=== PATIENT | male | born 1940 | race Hispanic/Latino ===

== ENCOUNTER 2016-06-08 09:10 | Inpatient (IN) | payer MEDICARE, BC ==
--- NOTE | 2016-06-08 09:22 | ED PDOC ---
HPI: General Adult Time Seen by Provider: 06/08/16 09:16 Chief Complaint (Provider): weakness History Per: Patient History/Exam Limitations: no limitations Additional Complaint(s): 75yo male brought by ALS for complaint of generalized weakness and dizziness since waking up this morning. He reports minimal eye pain left. Patient denies chest pain, cough, nausea, vomit, diarrhea, shortness of breath, numbness, tingles. [place] fine last night. No headache. No blurry vision. Not taking any meds for a long time. Has a triple AAA that is being monitored, last checked Feb 2016 time. EMS reports they did not administer medications in the field. Last BP they noted was 189/102. PMD: Derik Sotelo NIHSS Stroke Scale - Date/Time Evaluation Performed Date Performed: 06/08/16 Time Performed: 09:31 When Was NIHSS Performed: Baseline - How Severe is the Stroke Level of Consciousness: 0=Alert LOC to Questions: 0=Both comments correct LOC to commands: 0=Obeys both correctly Best Gaze: 0=Normal Visual: 0=No visual loss Facial: 0=Normal Motor Arm - Left: 0=No drift Motor Arm - Right: 0=No drift Motor Leg - Left: 0=No drift Motor Leg - Right: 0=No drift Limb Ataxia: 0=Absent Sensory: 0=Normal Best Language: 0=No aphasia Dysarthia: 0=Normal articulation Extinction & Inattention (Neglect): 0=Normal, no object Score: 0 rTPA Inclusion/Exclusion - Refusal of Treatment Patient Refused Treatment: No - Inclusion Criteria for Altepase Patient is 18 years or Older: Yes The Clinical Diagnosis of Ischemic Stroke That is Causing a Potentially Disabling Neurological Deficit: No Time of Onset is Well Established to be Less Than 270 Minute Before Treatment Would Begin: No Risk/Benefit Discussed With Patient/Family Member Present: Yes - Warning to TPA With Conditions Following Conditions Weighed Against Anticipated Benefit: Yes Condition: Care Team Unable to Determine Eligibilty (outside of window) Past Medical History Reviewed: Historical Data, Nursing Documentation, Vital Signs Vital Signs: Last Vital Signs Temp 98.6 F 06/08/16 09:43 Pulse 75 06/08/16 09:43 Resp 16 06/08/16 09:43 BP 174/99 H 06/08/16 09:43 Pulse Ox 100 06/08/16 11:15 - Medical History PMH: Atrial Fibrillation, CAD, CHF, CVA (mild), Dementia, Diabetes (type II), Gastritis, HTN, Hypercholesterolemia, Chronic Kidney Disease (renal failure) - Surgical History Surgical History: CABG (10 years ago) - Family History Family History: States: CAD, Diabetes (father) - Living Arrangements Living Arrangements: Alone - Social History Drugs: Denies - Immunization History Hx Tetanus Toxoid Vaccination: No Hx Influenza Vaccination: Yes Hx Pneumococcal Vaccination: No - Home Medications Home Medications: Ambulatory Orders Medication Instructions Recorded Acetaminophen [Tylenol 325mg tab] 650 mg PO Q6 PRN #0 tab 12/26/14 LORazepam [Ativan] 1 mg PO Q6 PRN #0 tab 12/26/14 amLODIPine [Norvasc] 10 mg PO DAILY #0 tab 12/26/14 traZODone [Desyrel] 50 mg PO HS #0 tab 12/26/14 Clonidine Hydrochloride [Catapres] 0.1 mg PO Q6 12/27/14 Ascorbic Acid [Vitamin C 500 mg 500 mg PO DAILY #0 tab 01/02/15 Tab] Donepezil [Aricept] 5 mg PO HS #0 tab 01/02/15 Folic Acid 1 mg PO DAILY #0 tab 01/02/15 Multimineral/Multivitamin 1 tab PO DAILY #0 tab 01/02/15 [Therapeutic-M Tab] Thiamine [Vitamin B1 Tab] 100 mg PO DAILY #0 tab 01/02/15 Metoprolol Succinate [Toprol XL] 50 mg PO DAILY 05/05/15 Rivaroxaban [Xarelto] 20 mg PO DAILY 05/05/15 Lisinopril 10 mg PO DAILY #0 tablet 05/13/15 Pantoprazole Sodium [Protonix] 40 mg PO BID #0 ml 05/13/15 Sucralfate 1 gm PO BID #0 tablet 05/13/15 - Allergies Allergies/Adverse Reactions: Allergies Allergy/AdvReac Type Severity Reaction Status Date / Time No Known Allergies Allergy Verified 06/08/16 09:31 Review of Systems ROS Statement: Except As Marked, All Systems Reviewed And Found Negative Constitutional: Positive for: Weakness Eyes: Positive for: Pain. Negative for: Vision Change, Redness Cardiovascular: Negative for: Chest Pain Respiratory: Negative for: Shortness of Breath Gastrointestinal: Negative for: Nausea, Vomiting, Diarrhea Musculoskeletal: Negative for: Neck Pain, Shoulder Pain, Arm Pain Skin: Negative for: Rash Neurological: Positive for: Weakness, Dizziness. Negative for: Numbness, Headache Physical Exam - Reviewed Nursing Documentation Reviewed: Yes Vital Signs Reviewed: Yes - Physical Exam Appears: Positive for: Non-toxic, No Acute Distress Head Exam: Positive for: ATRAUMATIC, NORMAL INSPECTION, NORMOCEPHALIC Skin: Positive for: Warm, Dry Eye Exam: Positive for: EOMI, Other (Pupils are fully reactive but right pupil is 3+, left pupil is 2+. ). Negative for: Periorbital swelling, Periorbital tenderness, Conjunctival injection ENT: Positive for: Normal ENT Inspection. Negative for: Nasal Congestion, Pharyngeal Erythema Cardiovascular/Chest: Positive for: Regular Rate, Rhythm Respiratory: Positive for: Normal Breath Sounds. Negative for: Rales, Rhonchi, Wheezing Gastrointestinal/Abdominal: Positive for: Normal Exam, Soft. Negative for: Tenderness Back: Positive for: Normal Inspection. Negative for: L CVA Tenderness, R CVA Tenderness Extremity: Positive for: Normal ROM, Swelling (bilateral lower extremity swelling mild but no pitting edema). Negative for: Tenderness Neurologic/Psych: Positive for: Alert, wellness specialist II-XII (intact), Oriented. Negative for: Motor/Sensory Deficits - Laboratory Results Result Diagrams: 06/08/16 10:09 06/08/16 10:09 Interpretation Of Abn Labs: probnp borderline elevation - ECG ECG: Positive for: Interpreted By Me, Viewed By Nv ECG Rhythm: Positive for: Atrial Fibrillation (rate controlled) O2 Sat by Pulse Oximetry: 100 (RA) Pulse Ox Interpretation: Normal - Radiology X-Ray: Interpreted by Me, Viewed By Nv X-Ray Interpretation: Other (?vascular congestion mild) - CT Scan/US ct Other Rad Studies (CT/US): Read By Radiologist Other Rad Interpretation: no acute - Progress ED Course And Treament: 0916: EKG, CXR, CT Head w/o, Labs, IV fluids ordered. 0922: accuchek is 116. 1246: Stable. AAOx3. BP elevated, will give clonidine. Will give ASA, lasix for chf mild. Will need admit for further eval of symptoms. Spoke with Joaquin of [place]. Will admit tele. Pt. pain free currently. Disposition - Clinical Impression Clinical Impression: CHF (congestive heart failure), Dizziness of unknown cause, Weakness, HTN ( hypertension) - Patient ED Disposition Is Patient to be Admitted: Yes Counseled Patient/Family Regarding: Studies Performed, Diagnosis - Disposition Disposition Time: 12:51 Condition: FAIR Instructions: Weakness (ED) - Pt Status Changed To: Hospital Disposition Of: Observation - POA Present On Arrival: None Additional Comments - Additional Comments Additional Comments: Documented by Macho Ferrer acting as a scribe for Kal Iglesias MD. All medical record entries made by the Scribe were at my direction and personally dictated by me. I have reviewed the chart and agree that the record accurately reflects my personal performance of the history, physical exam, medical decision making, and the department course for this patient. I have also personally directed, reviewed, and agree with the discharge instructions and disposition.
[2016-06-08 09:35] VITALS: BMI 26.6
[2016-06-08] MEDS ORDERED: Sodium Chloride 0.9% 500 ML IV STA (09:36)
[2016-06-08 10:16] LABS: BASO # 0.1 K/uL (0.0-0.2); BASO % 1.2 % (0.0-2.0); EOS # 0.3 K/uL (0.0-0.7); HEMATOCRIT 33.7 % (35.0-51.0); LYMPH # 0.9 K/uL (1.0-4.3); LYMPH % 13.6 % (20.0-40.0); MEAN CELL VOLUME 95.2 fl (80.0-94.0); MEAN CORPUSCULAR HEMOGLOBIN 32.6 pg (27.0-31.0); MEAN CORPUSCULAR HGB CONC 34.3 g/dL (33.0-37.0); MEAN PLATELET VOLUME 8.7 fl (7.2-11.7); MONO # 0.9 K/uL (0.0-0.8); MONO % 13.4 % (0.0-10.0); NEUT # 4.4 K/uL (1.8-7.0); NEUT % 67.8 % (50.0-75.0); NRBC % 0.1 % (0.0-0.0); RED CELL DISTRIBUTION WIDTH 13.4 % (11.5-14.5); WHITE BLOOD COUNT 6.5 K/uL (4.8-10.8)
--- NOTE | 2016-06-08 10:25 | CT ---
PROCEDURE: CT HEAD WITHOUT CONTRAST. HISTORY: headache COMPARISON: Comparison is made to the previous study dated 05/05/2015 TECHNIQUE: Axial computed tomography images were obtained through the head/brain without intravenous contrast. Radiation dose: Total exam DLP = 888.22 mGy-cm. FINDINGS: HEMORRHAGE: No intracranial hemorrhage. BRAIN: No mass effect or edema. Moderate atrophy and moderate chronic microvascular white matter ischemic disease are again noted. VENTRICLES: Unremarkable. No hydrocephalus. CALVARIUM: Unremarkable. PARANASAL SINUSES: Unremarkable as visualized. No significant inflammatory changes. MASTOID AIR CELLS: Unremarkable as visualized. No inflammatory changes. OTHER FINDINGS: None. IMPRESSION: No evidence of acute intracranial hemorrhage intracranial collection mass effect or midline shift. Moderate atrophy and moderate chronic microvascular white matter ischemic disease.
[2016-06-08 10:26] LABS: ALB/GLOB RATIO 1.2 (1.0-2.1); BILIRUBIN,TOTAL 0.8 mg/dl (0.2-1.3); CALCIUM 8.5 mg/dL (8.4-10.2); POTASSIUM 4.3 MMOL/L (3.6-5.0); TOTAL PROTEIN 7.1 G/DL (6.3-8.2)
[2016-06-08 10:33] LABS: PARTIAL THROMBOPLASTIN TIME 26.6 SECONDS (23.3-32.5)
[2016-06-08 10:36] LABS: TROPONIN I 0.018 ng/mL (0.00-0.120)
--- NOTE | 2016-06-08 14:08 | CARD ---
APPROVED REPORT EKG Measurement Heart [id number] <Conclusion> Atrial fibrillation Nonspecific T wave abnormality Prolonged QT Abnormal ECG
--- NOTE | 2016-06-08 14:22 | RAD ---
HISTORY: Dyspnea. Technique: Single view portable semi erect @ 09:45. COMPARISON: 09/09/2015. FINDINGS: LUNGS: No active pulmonary disease. PLEURA: No significant pleural effusion identified, no pneumothorax apparent. CARDIOVASCULAR: Cardiomegaly, pulmonary vascular plethora. These represent new findings compared to the prior study. OSSEOUS STRUCTURES: No significant abnormalities. Healed presumed posttraumatic posterior lateral right rib fractures. VISUALIZED UPPER ABDOMEN: Normal. OTHER FINDINGS: None. IMPRESSION: Mild and acute CHF.
--- NOTE | 2016-06-08 18:22 | CP.PCM.CON ---
History of Present Illness - History of Present Illness History of Present Illness: Patient is a 75 year old male with a PMH afib, ischemic cardiomyopathy who presents with dyspnea. Patient is non compliant with medication, and states he has noted one month history of progressive dyspnea and lower extremity edema. Patient has known ischemic cardiomyopathy, but has not followed up with the doctor. The patient has not had medication in over three months. The patient was found to be in atrial fibrillation. He received lasix with improvement. Review of Systems - Constitutional Constitutional: absent: As Per HPI, Anorexia, Chills, Daytime Sleepiness, Excessive Sweating, Fatigue, Fever, Frequent Falls, Headache, Increased Appetite , Lethargy, Malaise, Night Sweats, Snoring, Sleep Apnea, Weight Gain, Weight Loss, Weakness, Other - EENT Eyes: absent: As Per HPI, Blind Spots, Blurred Vision, Change in Vision, Decreased Night Vision, Diplopia, Discharge, Dry Eye, Exophthalmos, Floaters, Irritation, Itchy Eyes, Loss of Peripheral Vision, Pain, Photophobia, Requires Corrective Lenses, Sees Flashes, Spots in Vision, Tunnel Vision, Other Visual Disturbances, Loss of Vision, Other Ears: absent: As Per HPI, Decreased Hearing, Ear Discharge, Ear Pain, Tinnitus, Abnormal Hearing, Disequilibrium, Dizziness, Other Nose/Mouth/Throat: absent: As Per HPI, Epistaxis, Nasal Congestion, Nasal Discharge, Nasal Obstruction, Nasal Trauma, Nose Pain, Post Nasal Drip, Sinus Pain, Sinus Pressure, Bleeding Gums, Change in Voice, Dental Pain, Dry Mouth, Dysphagia, Halitosis, Hoarsness, Lip Swelling, Mouth Lesions, Mouth Pain, Odynophagia, Sore Throat, Throat Swelling, Tongue Swelling, Facial Pain, Neck Pain, Neck Mass, Other - Cardiovascular Cardiovascular: Dyspnea, Pedal Edema - Respiratory Respiratory: absent: As Per HPI, Cough, Dyspnea, Hemoptysis, Dyspnea on Exertion , Wheezing, Snoring, Stridor, Pain on Inspiration, Chest Congestion, Excessive Mucous Production, Change in Mucous Color, Pain with Coughing, Other - Gastrointestinal Gastrointestinal: absent: As Per HPI, Abdominal Pain, Belching, Bloating, Change in Bowel Habits, Change in Stool Character, Coffee Ground Emesis, Constipation, Cramping, Diarrhea, Dyspepsia, Dysphagia, Early Satiety, Excessive Flatus, Fecal Incontinence, Heartburn, Hematemesis, Hematochezia, Loose Stools, Melena, Nausea, Odynophagia, Temesmus, Vomiting, Other - Genitourinary Genitourinary: absent: As Per HPI, Change in Urinary Stream, Difficulty Urinating, Dysuria, Flank Pain, Hematuria, Pyuria, Nocturia, Urinary Incontinence, Urinary Frequency, Urinary Hesitance, Urinary Urgency, Voiding Freq/Small Amts, Freq UTI, Hx Renal/Bladder Calculi, Hx /Renal Surgery, Bladder Distension, Other - Musculoskeletal Musculoskeletal: absent: As Per HPI, Abnormal Gait, Arthralgias, Atrophy, Back Pain, Deformity, Joint Swelling, Limited Range of Motion, Loss of Height, Muscle Cramps, Muscle Weakness, Myalgias, Neck Pain, Numbness, Radiating Pain into Limb, Stiffness, Tingling, Other - Integumentary Integumentary: absent: As Per HPI, Acne, Alopecia, Bleeding Lesions, Change in Hair, Change in Nails, Change in Pigmentation, Changing Lesions, Dry Skin, Erythema, Furuncle, Hirsutism, Lesions, New Lesions, Non-Healing Lesions, Photosensitivity, Pruritus, Rash, Skin Pain, Skin Ulcer, Sores, Striae, Swelling , Unusual Bruising, Wounds, Jaundice, Other - Neurological Neurological: absent: As Per HPI, Abnormal Gait, Abnormal Hearing, Abnormal Movements, Abnormal Speech, Behavioral Changes, Burning Sensations, Confusion, Convulsions, Disequilibrium, Dizziness, Numbness, Focal Weakness, Frequent Falls , Headaches, Lack of Coordination, Loss of Vision, Memory Loss, Paresthesias, Radicular Pain, Restless Legs, Sensory Deficit, Syncope, Tingling, Tremor, Vertigo, Weakness, Other Visual Disturbances, Other - Psychiatric Psychiatric: absent: As Per HPI, Abnormal Sleep Pattern, Anhedonia, Anxiety, Auditory Hallucinations, Behavioral Changes, Change in Appetite, Change in Libido, Confusion, Depression, Difficulty Concentrating, Hallucinations, Homicidal Ideation, Hopelessness, Irritability, Memory Loss, Mood Swings, Panic Attacks, Paranoia, Suicidal Ideation, Visual Hallucinations, Tactile Hallucinations, Other - Endocrine Endocrine: absent: As Per HPI, Change in Body Appearance, Change in Libido, Cold Intolorance, Deepening of Voice, Excessive Sweating, Fatigue, Flushing, Heat Intolorance, Increase in Ring/Shoe/Hat Size, Palpitations, Polydipsia, Polyphagia, Polyuria, Other - Hematologic/Lymphatic Hematologic: absent: As Per HPI, Easy Bleeding, Easy Bruising, Lymphadenopathy, Other Past Patient History - Tetanus Immunizations Tetanus Immunization: Unknown - Past Medical History & Family History Past Medical History?: Yes - Past Social History Drugs: Denies - CARDIAC Hx Atrial Fibrillation: Yes Hx Congestive Heart Failure: Yes Hx Hypercholesterolemia: Yes Hx Hypertension: Yes - PULMONARY Hx Respiratory Disorders: No - NEUROLOGICAL Hx Dementia: Yes - HEENT Hx HEENT Problems: Yes - RENAL Hx Chronic Kidney Disease: Yes (renal failure) - ENDOCRINE/METABOLIC Hx Diabetes Mellitus Type 2: Yes - HEMATOLOGICAL/ONCOLOGICAL Hx Blood Disorders: No - INTEGUMENTARY Hx Dermatological Problems: No - MUSCULOSKELETAL/RHEUMATOLOGICAL Hx Musculoskeletal Disorders: Yes Hx Falls: No - GASTROINTESTINAL Hx Gastritis: Yes - GENITOURINARY/GYNECOLOGICAL Hx Genitourinary Disorders: No - PSYCHIATRIC Hx Psychophysiologic Disorder: No Hx Substance Use: No - SURGICAL HISTORY Hx Coronary Artery Bypass Graft: Yes (10 years ago) - ANESTHESIA Hx Anesthesia: Yes Hx Anesthesia Reactions: No Hx Malignant Hyperthermia: No Meds Home Medications: Home Medication List Medication Instructions Recorded Confirmed Type Aspirin [Aspirin Chewable] 81 mg PO DAILY #30 chew 06/09/16 Rx Furosemide [Lasix] 40 mg PO DAILY #30 tablet 06/09/16 Rx Valsartan [Diovan] 80 mg PO DAILY #30 tab 06/09/16 Rx Allergies/Adverse Reactions: Allergies Allergy/AdvReac Type Severity Reaction Status Date / Time No Known Allergies Allergy Verified 06/08/16 09:31 - Medications Medications: Current Medications Aspirin (Aspirin Chewable) 81 mg PO DAILY [facility] Furosemide (Lasix) 20 mg IVP DAILY [facility] Valsartan (Diovan) 40 mg PO DAILY [facility] Last Admin: 06/08/16 18:07 Dose: 40 mg Physical Exam - Constitutional Appears: Non-toxic - Head Exam Head Exam: NORMAL INSPECTION - Eye Exam Eye Exam: Normal appearance - ENT Exam ENT Exam: Mucous Membranes Moist - Neck Exam Neck exam: Positive for: Full Rom - Respiratory Exam Respiratory Exam: Decreased Breath Sounds - Cardiovascular Exam Cardiovascular Exam: Irregular Rhythm - GI/Abdominal Exam GI & Abdominal Exam: Normal Bowel Sounds - Rectal Exam Rectal Exam: Deferred - Extremities Exam Extremities exam: Negative for: pedal edema - Back Exam Back exam: NORMAL INSPECTION - Neurological Exam Neurological exam: Alert, Oriented x3 - Psychiatric Exam Psychiatric exam: Normal Affect - Skin Skin Exam: Normal Color Results - Vital Signs Recent Vital Signs: Last Vital Signs Temp 98.6 F 06/08/16 09:43 Pulse 75 06/08/16 09:43 Resp 16 06/08/16 09:43 BP 187/101 H 06/08/16 16:27 Pulse Ox 100 06/08/16 12:51 - Labs Result Diagrams: 06/09/16 05:55 06/09/16 05:55 - EKG Data EKG Interpreted by: Myself Assessment & Plan (1) CHF (congestive heart failure) Assessment and Plan: likely acute on chronic systolic. recommend diuresis. Status: Acute (2) Atrial fibrillation Assessment and Plan: rate controlled. not ideal group home anticoagulant therapy due to alcoholism and poor compliance. Status: Chronic (3) CAD (coronary artery disease) Assessment and Plan: no current angina Status: Chronic (4) HTN (hypertension) Assessment and Plan: will monitor blood pressure Status: Chronic
--- NOTE | 2016-06-08 18:44 | CON ---
DATE: 06/08/2016 CHIEF COMPLAINT: Dizziness. HISTORY OF PRESENT ILLNESS: This is a 75-year-old man with a past medical history of atrial fibrilla tion on Xarelto, coronary artery disease, dementia in terms of cognitive impairment, type 2 diabetes mellitus, gastritis, hypertension, hypercholesterolemia, history of vasovagal syncope in the past, hi story of triple abdominal aortic aneurysm, who came in with headaches and dizziness and generalized w eakness. He is hard of hearing due to he has a lot of earwax in both ears. He describes dizziness a s lightheadedness rather than a spinning sensation of the room. He has a mild frontal pressure heada marie. He was found to have elevated systolic and diastolic blood pressures; last BP was 189/102. He has ran out of his blood pressure medications as well as his medications for dementia, which are [facility] ept as well as his amlodipine and Catapres. He is not even taking his Xarelto at this time. He has not seen his primary care doctor in a long time. His CT head showed no acute intracranial abnormalit ies. PAST MEDICAL HISTORY: History of coronary artery disease, dementia, history of triple aortic aneurys m, history of atrial fibrillation on Xarelto, history of dyslipidemia, history of vasovagal syncope. REVIEW OF SYSTEMS: A 14-point review of systems is negative except for the HPI. ALLERGIES: No known drug allergies. MEDICATIONS: Reviewed via nurses' reconciliation sheet. FAMILY HISTORY: Noncontributory. SOCIAL HISTORY: No longer drinks vodka, but drinks 2-3 beers daily. Denies any illicit drug use or smoking. FAMILY HISTORY: Noncontributory. PHYSICAL EXAMINATION: VITAL SIGNS: Temperature 98.6, pulse rate 75, blood pressure 187/101, respiratory rate of 16, oxygen saturation 100% on room air. GENERAL: The patient is sitting up in bed in no acute distress. Hard of hearing due to a lot of ear wax. HEENT: Atraumatic, normocephalic. PERRLA. Extraocular muscles intact. NECK: Supple, no JVD, no adenopathy noted. LUNGS: Clear to auscultation. No adventitious sounds. HEART: S1, S2, normal rate and rhythm. No murmurs, rubs, or gallops. ABDOMEN: Soft, nontender, nondistended. Bowel sounds are present. EXTREMITIES: No clubbing, no cyanosis, has 1+ pitting edema bilaterally. NEUROLOGIC: The patient is alert, hard of hearing, oriented to person, place and year. Recall after 5 minutes is 0/3. Poor attention span, slowed thought process. Cranial nerves II through XII are i ntact. MOTOR: Moves all extremities equally. No pronator drift seen. SENSORY: Light touch, pinprick, proprioception, vibration . DTRs are 1+ throughout and absent at the ankles. COORDINATION: [id number] intact. No tremors noted. GAIT: Is deferred for now. LABORATORY DATA: Sodium is 142, potassium 4.3, chloride 102, carbon dioxide of 25, BUN of 26, creati nine 1.4 and random glucose 114. ASSESSMENT AND PLAN: This is a 75-year-old man with a history of dementia who is on Aricept, history of atrial fibrillation on Xarelto 20 mg p.o. daily, history of hypertension, was on lisinopril, amlo dipine and Catapres; history of dyslipidemia, history of ETOH abuse, history of vasovagal syncope, hi story of gastritis and history of triple abdominal aortic aneurysm who presented with dizziness and h eadache and generalized weakness. He was found to have elevated systolic and diastolic blood pressur es. His dizziness is more secondary to hypertensive urgency due to him not taking his meds for a hong g time as well as some mild congestive heart failure. At this time, I recommend: 1. Place him back on his Xarelto 20 mg p.o. daily for his stroke prevention as well as atrial fibril lation. 2. Continue with metoprolol for rate control 50 mg p.o. daily for his atrial fibrillation. 3. Lisinopril 10 mg p.o. daily as well as amlodipine 10 mg p.o. daily for his high blood pressure. Try to avoid Catapres but will get cardiology's recommendations. 4. Recommend putting him back on Aricept 10 mg p.o. at bedtime for cognitive impairment and recommen d him to be on alpha lipoic acid 600 mg p.o. b.i.d. for cognition as well as Turmeric 1000 mg p.o. da jena. 5. Follow up with cardiology recommendations in regards to his cardiac status. 6. Mildly hydrate the patient as the patient is slightly dehydrated and continue with current presen t medical management. No further neurological workup is needed at this time. Thank you for this consult. Will reconsult if necessary. Yordan Keyes MD cc: [id number] TT: 06/08/2016 18:43:05 Confirmation # [id number] Dictation # [id number] dn
[2016-06-09] MEDS ORDERED: Influenza Vaccine(5yr & older) 0.5 ML/45 MCG IM ONE (06:30)
[2016-06-09] MEDS ORDERED: Pneumococcal 23-Valent Vaccine IM ONE (06:30)
--- NOTE | 2016-06-09 07:06 | CP.PCM.HP ---
History of Present Illness - History of Present Illness History of Present Illness: pt admitted for dizziness, dyspnea on exertion. pt has been non compliant on meds and pcp f/u. brought to er by daughters. given clonidine and lasix in er w / effect at present trace ble edema. no cp, dyspnea. no complaints. pt is HOOPA. bw noted. cardio consults appriciated. case d/c w/ dr alvares and daughter. pt is for likely dc later today Present on Admission - Present on Admission Any Indicators Present on Admission: No Review of Systems - Cardiovascular Cardiovascular: As Per HPI, Chest Pain with Activity, Dyspnea on Exertion, Edema Past Patient History - Tetanus Immunizations Tetanus Immunization: Unknown - Past Medical History & Family History Past Medical History?: Yes - Past Social History Smoking Status: Former Smoker - CARDIAC Hx Cardiac Disorders: Yes Hx Atrial Fibrillation: Yes Hx Congestive Heart Failure: Yes Hx Hypercholesterolemia: Yes Hx Hypertension: Yes Other/Comment: abdominal aortic aneursym - PULMONARY Hx Respiratory Disorders: No - NEUROLOGICAL Hx Neurological Disorder: Yes HX Cerebrovascular Accident: Yes Hx Dementia: Yes Hx Syncope: Yes (vasovagal) - HEENT Hx HEENT Problems: Yes Other/Comment: hard of hearing left and right - RENAL Hx Chronic Kidney Disease: Yes (renal failure) - ENDOCRINE/METABOLIC Hx Endocrine Disorders: Yes Hx Diabetes Mellitus Type 2: Yes - HEMATOLOGICAL/ONCOLOGICAL Hx Blood Disorders: No - INTEGUMENTARY Hx Dermatological Problems: No - MUSCULOSKELETAL/RHEUMATOLOGICAL Hx Musculoskeletal Disorders: Yes Hx Falls: No - GASTROINTESTINAL Hx Gastrointestinal Disorders: Yes Hx Gastritis: Yes - GENITOURINARY/GYNECOLOGICAL Hx Genitourinary Disorders: No - PSYCHIATRIC Hx Psychophysiologic Disorder: No Hx Substance Use: No - SURGICAL HISTORY Hx Surgeries: Yes Hx Coronary Artery Bypass Graft: Yes (10 years ago) - ANESTHESIA Hx Anesthesia: Yes Hx Anesthesia Reactions: No Hx Malignant Hyperthermia: No Meds Allergies/Adverse Reactions: Allergies Allergy/AdvReac Type Severity Reaction Status Date / Time No Known Allergies Allergy Verified 06/08/16 09:31 Physical Exam - Constitutional Appears: Well, Non-toxic, No Acute Distress - Head Exam Head Exam: ATRAUMATIC, NORMAL INSPECTION, NORMOCEPHALIC - Eye Exam Eye Exam: EOMI, Normal appearance, PERRL Pupil Exam: NORMAL ACCOMODATION, PERRL - ENT Exam ENT Exam: Mucous Membranes Moist, Normal Exam - Neck Exam Neck exam: Positive for: Normal Inspection - Respiratory Exam Respiratory Exam: Clear to Auscultation Bilateral, NORMAL BREATHING PATTERN - Cardiovascular Exam Cardiovascular Exam: REGULAR RHYTHM, RRR, +S1, +S2 - GI/Abdominal Exam GI & Abdominal Exam: Normal Bowel Sounds, Soft. absent: Tenderness - Extremities Exam Extremities exam: Positive for: full ROM, normal capillary refill, normal inspection, pedal pulses present - Back Exam Back exam: NORMAL INSPECTION - Neurological Exam Neurological exam: Alert, CN II-XII Intact, Normal Gait, Oriented x3, Reflexes Normal - Psychiatric Exam Psychiatric exam: Normal Affect, Normal Mood - Skin Skin Exam: Dry, Intact, Normal Color, Warm Results - Vital Signs Recent Vital Signs: Last Vital Signs Temp 97.8 F 06/09/16 04:46 Pulse 85 06/09/16 04:46 Resp 20 06/09/16 04:46 BP 161/92 H 06/09/16 04:46 Pulse Ox 96 06/09/16 04:46 - Labs Result Diagrams: 06/09/16 05:55 06/09/16 05:55 Labs: Laboratory Results - last 24 hr 06/08/16 06/08/16 18:40 19:25 POC Glucose (mg/dL) 90 Troponin I 0.0160 Assessment & Plan (1) Acute worsening of stage 3 chronic kidney disease Assessment and Plan: lasix, outpt f/u monitor bw, Status: Acute (2) CHF (congestive heart failure) Assessment and Plan: lasix, cardio, ouptt f/u arb Status: Acute (3) DVT prophylaxis Assessment and Plan: scd and aehose lovneox if admitted over 24h Status: Acute (4) HTN (hypertension) Assessment and Plan: lasix, arb cardio Status: Chronic Decision To Admit - Pt Status Changed To: Hospital Disposition Of: Observation - . Bed Request Type: Telemetry Admitting Physician: Janay Gutierrez
[2016-06-09 07:47] LABS: BASO # 0.1 K/uL (0.0-0.2); EOS # 0.4 K/uL (0.0-0.7); HEMATOCRIT 39.6 % (35.0-51.0); LYMPH # 1.6 K/uL (1.0-4.3); LYMPH % 23.3 % (20.0-40.0); MEAN CELL VOLUME 95.6 fl (80.0-94.0); MEAN CORPUSCULAR HEMOGLOBIN 32.5 pg (27.0-31.0); MEAN PLATELET VOLUME 9.1 fl (7.2-11.7); MONO # 0.9 K/uL (0.0-0.8); MONO % 13.1 % (0.0-10.0); NEUT # 3.8 K/uL (1.8-7.0); NEUT % 56.6 % (50.0-75.0); NRBC % 0.1 % (0.0-0.0); RED CELL DISTRIBUTION WIDTH 13.2 % (11.5-14.5); WHITE BLOOD COUNT 6.6 K/uL (4.8-10.8)
[2016-06-09 08:02] LABS: ALB/GLOB RATIO 1.1 (1.0-2.1); BILIRUBIN,TOTAL 1.6 mg/dl (0.2-1.3); CALCIUM 9.6 mg/dL (8.4-10.2); POTASSIUM 3.8 MMOL/L (3.6-5.0); TOTAL PROTEIN 8.3 G/DL (6.3-8.2)
[2016-06-09 08:08] LABS: TROPONIN I 0.037 ng/mL (0.00-0.120)
--- NOTE | 2016-06-09 10:58 | CARD ---
APPROVED REPORT EXAM: Two-dimensional and M-mode echocardiogram with Doppler and color Doppler. Other Information Quality : AverageRhythm : NSR INDICATION Congestive Heart Failure Surgery/Intervention CABD DIMENSIONS IVSd1.19 (0.7-1.1cm)LVDd4.58 (3.9-5.9cm) LVOT Diameter1.91 (1.8-2.4cm)PWd0.72 (0.7-1.1cm) IVSs1.82 (0.8-1.2cm)LVDs3.99 (2.5-4.0cm) FS (%) 13.0 %PWs0.90 (0.8-1.2cm) M-Mode DIMENSIONS Left Atrium (MM)4.47 (2.5-4.0cm)Aortic Root3.35 (2.2-3.7cm) Aortic Cusp Exc.1.54 (1.5-2.0cm) Mitral Valve E/A ratio0.0 TDI E/Lateral E'0.0E/Medial E'0.0 Tricuspid Valve TR Peak [id number] [id number] Peak Gr.23mmHg [id number] LEFT VENTRICLE The left ventricle is normal size. There is normal left ventricular wall thickness. The systolic function is mildly to moderately impaired. The Ejection Fraction is 35-40%. There is global hypokinesis of the left ventricle. The left ventricular diastolic function is normal. No left ventricle thrombus noted on this study. There is no mass noted in the left ventricle. RIGHT VENTRICLE The right ventricle is normal size. There is normal right ventricular wall thickness. The right ventricular systolic function is normal. ATRIA The left atrium size is normal. The right atrium size is normal. The interatrial septum is intact with no evidence for an atrial septal defect. AORTIC VALVE The aortic valve is mildly to moderately sclerotic. No aortic regurgitation is present. There is no aortic valvular stenosis. There is no aortic valvular vegetation. MITRAL VALVE The mitral valve is normal in structure and function. There is no evidence of mitral valve prolapse. There is no mitral valve stenosis. There is no mitral valve regurgitation noted. TRICUSPID VALVE The tricuspid valve is normal in structure and function. There is mild tricuspid regurgitation. There is no tricuspid valve prolapse or vegetation. There is no tricuspid valve stenosis. PULMONIC VALVE The pulmonary valve is normal in structure and function. There is no pulmonic valvular regurgitation. There is no pulmonic valvular stenosis. GREAT VESSELS The aortic root is normal in size. The IVC is normal in size and collapses >50% with inspiration. PERICARDIAL EFFUSION The pericardium appears normal. There is no pleural effusion. <Conclusion> The left ventricle is normal size. There is normal left ventricular wall thickness. The systolic function is mildly to moderately impaired. The Ejection Fraction is 35-40%. There is global hypokinesis of the left ventricle. There is mild tricuspid regurgitation.
--- NOTE | 2016-06-09 18:46 | CP.PCM.PN ---
Subjective - Date & Time of Evaluation Date of Evaluation: 06/09/16 Time of Evaluation: 17:40 - Subjective Subjective: patient has no current chest pain or dyspnea. Objective - Vital Signs/Intake and Output Vital Signs (last 24 hours): Temp Pulse Resp BP Pulse Ox 98.0 F 83 18 163/88 H 96 06/09/16 16:00 06/09/16 16:00 06/09/16 16:00 06/09/16 16:00 06/09/16 16:00 - Medications Medications: Current Medications Acetaminophen (Tylenol 325mg Tab) 650 mg PO Q6 PRN PRN Reason: Pain, Mild (1-3) Last Admin: 06/09/16 14:00 Dose: 650 mg Aspirin (Aspirin Chewable) 81 mg PO DAILY [facility] Last Admin: 06/09/16 09:10 Dose: 81 mg Furosemide (Lasix) 40 mg IVP DAILY [facility] Last Admin: 06/09/16 09:10 Dose: 40 mg Lorazepam (Ativan) 0.5 mg PO BID PRN PRN Reason: Anxiety Last Admin: 06/09/16 14:05 Dose: 0.5 mg Valsartan (Diovan) 80 mg PO DAILY [facility] Last Admin: 06/09/16 09:10 Dose: 80 mg - Labs Labs: PT 10.6 SECONDS (9.6-11.2) 06/08/16 10:06 INR 1.02 (0.92-1.08) 06/08/16 10:06 APTT 26.6 SECONDS (23.3-32.5) 06/08/16 10:06 - Constitutional Appears: Non-toxic - Head Exam Head Exam: NORMAL INSPECTION - Eye Exam Eye Exam: Normal appearance - ENT Exam ENT Exam: Mucous Membranes Moist - Neck Exam Neck Exam: Full ROM - Respiratory Exam Respiratory Exam: Decreased Breath Sounds - Cardiovascular Exam Cardiovascular Exam: REGULAR RHYTHM - GI/Abdominal Exam GI & Abdominal Exam: Normal Bowel Sounds - Rectal Exam Rectal Exam: Deferred - Extremities Exam Extremities Exam: Normal Inspection - Back Exam Back Exam: NORMAL INSPECTION - Neurological Exam Neurological Exam: Alert - Psychiatric Exam Psychiatric exam: Normal Affect - Skin Skin Exam: Normal Color Assessment and Plan (1) CHF (congestive heart failure) Assessment & Plan: continue diuresis Status: Acute (2) Atrial fibrillation Assessment & Plan: will give lovenox Status: Chronic (3) CAD (coronary artery disease) Assessment & Plan: no angina Status: Chronic (4) HTN (hypertension) Assessment & Plan: will adjust blood pressure therapy Status: Chronic
[2016-06-09] MEDS: Enoxaparin 100 mg Syringe SC SCH (21:08)
--- NOTE | 2016-06-10 07:05 | CP.PCM.PN ---
Subjective - Date & Time of Evaluation Date of Evaluation: 06/10/16 Time of Evaluation: 07:05 - Subjective Subjective: doing well, no compalints. ambulatory w/ unsteady gait. for JUVENTINO c/o mild dizziness, no cp, dyspnea. Objective - Vital Signs/Intake and Output Vital Signs (last 24 hours): Temp Pulse Resp BP Pulse Ox 98.1 F 81 18 122/76 95 06/09/16 22:55 06/09/16 22:55 06/09/16 22:55 06/09/16 22:55 06/09/16 22:55 Intake and Output: 06/10/16 06/10/16 06:59 18:59 Intake Total 740 Output Total 1240 Balance -500 - Medications Medications: Current Medications Acetaminophen (Tylenol 325mg Tab) 650 mg PO Q6 PRN PRN Reason: Pain, Mild (1-3) Last Admin: 06/09/16 14:00 Dose: 650 mg Aspirin (Aspirin Chewable) 81 mg PO DAILY [facility] Last Admin: 06/09/16 09:10 Dose: 81 mg Carvedilol (Coreg) 12.5 mg PO Q12 [facility] Last Admin: 06/09/16 21:07 Dose: 12.5 mg Enoxaparin Sodium (Lovenox) 100 mg SC Q12 [facility] PRN Reason: Protocol Last Admin: 06/09/16 21:08 Dose: 100 mg Furosemide (Lasix) 40 mg IVP DAILY [facility] Last Admin: 06/09/16 09:10 Dose: 40 mg Lorazepam (Ativan) 0.5 mg PO BID PRN PRN Reason: Anxiety Last Admin: 06/09/16 14:05 Dose: 0.5 mg Valsartan (Diovan) 80 mg PO DAILY [facility] Last Admin: 06/09/16 09:10 Dose: 80 mg - Labs Labs: PT 10.6 SECONDS (9.6-11.2) 06/08/16 10:06 INR 1.02 (0.92-1.08) 06/08/16 10:06 APTT 26.6 SECONDS (23.3-32.5) 06/08/16 10:06 - Constitutional Appears: Well, Non-toxic, No Acute Distress - Head Exam Head Exam: ATRAUMATIC, NORMAL INSPECTION, NORMOCEPHALIC - Eye Exam Eye Exam: EOMI, Normal appearance, PERRL Pupil Exam: NORMAL ACCOMODATION, PERRL - ENT Exam ENT Exam: Mucous Membranes Moist, Normal Exam - Neck Exam Neck Exam: Full ROM, Normal Inspection. absent: Lymphadenopathy - Respiratory Exam Respiratory Exam: Clear to Ausculation Bilateral, NORMAL BREATHING PATTERN - Cardiovascular Exam Cardiovascular Exam: Irregular Rhythm, +S1, +S2. absent: Murmur - GI/Abdominal Exam GI & Abdominal Exam: Soft, Normal Bowel Sounds. absent: Tenderness - Extremities Exam Extremities Exam: Full ROM, Normal Capillary Refill, Normal Inspection. absent : Joint Swelling, Pedal Edema - Back Exam Back Exam: NORMAL INSPECTION - Neurological Exam Neurological Exam: Alert, Awake, CN II-XII Intact, Normal Gait, Oriented x3 - Psychiatric Exam Psychiatric exam: Normal Affect, Normal Mood - Skin Skin Exam: Dry, Intact, Normal Color, Warm Assessment and Plan (1) Acute worsening of stage 3 chronic kidney disease Status: Acute (2) CHF (congestive heart failure) Status: Acute (3) DVT prophylaxis Status: Acute (4) HTN (hypertension) Status: Chronic - Assessment and Plan (Free Text) Assessment: (1) Acute worsening of stage 3 chronic kidney disease Assessment and Plan: lasix, po hydration trend bun/cr monitor bw, Status: Acute (2) CHF (congestive heart failure) Assessment and Plan: lasix, cardio, arb Status: Acute (3) DVT prophylaxis Assessment and Plan: scd and aehose lovneox Status: Acute (4) HTN (hypertension) Assessment and Plan: lasix, arb cardio Status: Chronic (5) afib-rate control, lovenox 6-dizziness-?? cerumen impaction, juventino, ent at that facility
[2016-06-10 08:04] LABS: BASO # 0.1 K/uL (0.0-0.2); BASO % 0.6 % (0.0-2.0); EOS # 0.2 K/uL (0.0-0.7); EOS % 1.9 % (0.0-4.0); HEMATOCRIT 38.8 % (35.0-51.0); LYMPH # 1.4 K/uL (1.0-4.3); LYMPH % 16.5 % (20.0-40.0); MEAN CELL VOLUME 95.2 fl (80.0-94.0); MEAN CORPUSCULAR HEMOGLOBIN 32.1 pg (27.0-31.0); MEAN CORPUSCULAR HGB CONC 33.7 g/dL (33.0-37.0); MEAN PLATELET VOLUME 9.3 fl (7.2-11.7); RED CELL DISTRIBUTION WIDTH 13.4 % (11.5-14.5); WHITE BLOOD COUNT 8.6 K/uL (4.8-10.8)
[2016-06-10 08:11] LABS: ALB/GLOB RATIO 1.1 (1.0-2.1); BILIRUBIN,TOTAL 1.8 mg/dl (0.2-1.3); POTASSIUM 3.6 MMOL/L (3.6-5.0); TOTAL PROTEIN 7.6 G/DL (6.3-8.2)
--- NOTE | 2016-06-10 08:56 | IP.NPCORE ---
Heart Failure Core Measure - Heart Failure Ejection Fraction: Less Than 40 % (echo 06/08 EF 30-40%) MAYTE Inhibitor Prescribed: Yes Beta-Rom Prescribed: Carvedilol Contraindication/Reason for not providing: on MAYTE Contraindication/Reason for not providing: na Contraindication/Reason for not providing: On lasix Contraindication/Reason for not providing: na Contraindication/Reason for not providing: na Cardiac Resynchronization Therapy Prescribed: No Contraindication/Reason for not providing: na - Follow up Will be discharged to: Detention Facility
[2016-06-10] MEDS: Enoxaparin 100 mg Syringe SC SCH ×2 (10:12→21:06)
--- NOTE | 2016-06-10 16:07 | CP.PCM.PN ---
Subjective - Date & Time of Evaluation Date of Evaluation: 06/10/16 Time of Evaluation: 15:35 - Subjective Subjective: Patient has no current chest pain or dyspnea. Objective - Vital Signs/Intake and Output Vital Signs (last 24 hours): Temp Pulse Resp BP Pulse Ox 98.4 F 66 20 133/80 94 L 06/10/16 08:04 06/10/16 10:12 06/10/16 08:04 06/10/16 10:14 06/10/16 10:06 Intake and Output: 06/10/16 06/10/16 06:59 18:59 Intake Total 740 Output Total 1240 Balance -500 - Medications Medications: Current Medications Acetaminophen (Tylenol 325mg Tab) 650 mg PO Q6 PRN PRN Reason: Pain, Mild (1-3) Last Admin: 06/09/16 14:00 Dose: 650 mg Aspirin (Aspirin Chewable) 81 mg PO DAILY [facility] Last Admin: 06/10/16 10:13 Dose: 81 mg Carvedilol (Coreg) 12.5 mg PO Q12 [facility] Last Admin: 06/10/16 10:12 Dose: 12.5 mg Enoxaparin Sodium (Lovenox) 100 mg SC Q12 [facility] PRN Reason: Protocol Last Admin: 06/10/16 10:12 Dose: 100 mg Furosemide (Lasix) 40 mg IVP DAILY [facility] Last Admin: 06/10/16 10:14 Dose: 40 mg Lorazepam (Ativan) 0.5 mg PO BID PRN PRN Reason: Anxiety Last Admin: 06/09/16 14:05 Dose: 0.5 mg Valsartan (Diovan) 80 mg PO DAILY [facility] Last Admin: 06/10/16 12:24 Dose: 80 mg - Labs Labs: 06/10/16 06:05 06/10/16 06:05 PT 10.6 SECONDS (9.6-11.2) 06/08/16 10:06 INR 1.02 (0.92-1.08) 06/08/16 10:06 APTT 26.6 SECONDS (23.3-32.5) 06/08/16 10:06 - Constitutional Appears: Non-toxic - Head Exam Head Exam: NORMAL INSPECTION - Eye Exam Eye Exam: Normal appearance - ENT Exam ENT Exam: Mucous Membranes Moist - Neck Exam Neck Exam: Full ROM - Respiratory Exam Respiratory Exam: Decreased Breath Sounds - Cardiovascular Exam Cardiovascular Exam: Irregular Rhythm - GI/Abdominal Exam GI & Abdominal Exam: Normal Bowel Sounds - Rectal Exam Rectal Exam: Deferred - Extremities Exam Extremities Exam: Pedal Edema - Back Exam Back Exam: NORMAL INSPECTION - Neurological Exam Neurological Exam: Alert - Psychiatric Exam Psychiatric exam: Normal Affect - Skin Skin Exam: Normal Color Assessment and Plan (1) CHF (congestive heart failure) Assessment & Plan: improving with diuresis Status: Acute (2) Atrial fibrillation Assessment & Plan: ideally will benefit from oral anticoagulation but compliance is an issue Status: Chronic (3) CAD (coronary artery disease) Assessment & Plan: medical therapy Status: Chronic (4) HTN (hypertension) Assessment & Plan: blood pressure is improved Status: Chronic
[2016-06-11 07:11] LABS: BASO # 0.1 K/uL (0.0-0.2); BASO % 0.7 % (0.0-2.0); EOS # 0.5 K/uL (0.0-0.7); EOS % 5.5 % (0.0-4.0); HEMATOCRIT 37.1 % (35.0-51.0); LYMPH # 2.2 K/uL (1.0-4.3); LYMPH % 22.6 % (20.0-40.0); MEAN CELL VOLUME 95.3 fl (80.0-94.0); MEAN CORPUSCULAR HEMOGLOBIN 31.6 pg (27.0-31.0); MEAN CORPUSCULAR HGB CONC 33.2 g/dL (33.0-37.0); MEAN PLATELET VOLUME 9.4 fl (7.2-11.7); MONO # 1.7 K/uL (0.0-0.8); MONO % 17.4 % (0.0-10.0); NEUT # 5.1 K/uL (1.8-7.0); NEUT % 53.8 % (50.0-75.0); RED CELL DISTRIBUTION WIDTH 13.3 % (11.5-14.5); WHITE BLOOD COUNT 9.6 K/uL (4.8-10.8)
[2016-06-11 07:14] LABS: ALB/GLOB RATIO 1.1 (1.0-2.1); BILIRUBIN,TOTAL 1.2 mg/dl (0.2-1.3); CALCIUM 8.7 mg/dL (8.4-10.2); POTASSIUM 3.7 MMOL/L (3.6-5.0)
[2016-06-11] MEDS: Enoxaparin 100 mg Syringe SC SCH ×2 (08:47→21:49)
--- NOTE | 2016-06-11 09:46 | CP.PCM.PN ---
Subjective - Date & Time of Evaluation Date of Evaluation: 06/11/16 Time of Evaluation: 09:25 - Subjective Subjective: no complaints/distress no f/c, n/v/s bun/cr slightly elevated today?? r/t iv lasix Objective - Vital Signs/Intake and Output Vital Signs (last 24 hours): Temp Pulse Resp BP Pulse Ox 97.7 F 80 18 134/88 95 06/11/16 08:45 06/11/16 08:48 06/11/16 08:45 06/11/16 09:20 06/11/16 08:45 - Medications Medications: Current Medications Acetaminophen (Tylenol 325mg Tab) 650 mg PO Q6 PRN PRN Reason: Pain, Mild (1-3) Last Admin: 06/09/16 14:00 Dose: 650 mg Aspirin (Aspirin Chewable) 81 mg PO DAILY [facility] Last Admin: 06/11/16 08:49 Dose: 81 mg Carvedilol (Coreg) 12.5 mg PO Q12 [facility] Last Admin: 06/11/16 08:48 Dose: 12.5 mg Enoxaparin Sodium (Lovenox) 100 mg SC Q12 [facility] PRN Reason: Protocol Last Admin: 06/11/16 08:47 Dose: 100 mg Furosemide (Lasix) 20 mg IVP DAILY [facility] Last Admin: 06/11/16 09:20 Dose: 20 mg Lorazepam (Ativan) 0.5 mg PO BID PRN PRN Reason: Anxiety Last Admin: 06/09/16 14:05 Dose: 0.5 mg Valsartan (Diovan) 80 mg PO DAILY [facility] Last Admin: 06/11/16 08:49 Dose: 80 mg - Labs Labs: 06/11/16 05:30 06/11/16 05:30 PT 10.6 SECONDS (9.6-11.2) 06/08/16 10:06 INR 1.02 (0.92-1.08) 06/08/16 10:06 APTT 26.6 SECONDS (23.3-32.5) 06/08/16 10:06 - Constitutional Appears: Well, Non-toxic, No Acute Distress - Head Exam Head Exam: ATRAUMATIC, NORMAL INSPECTION, NORMOCEPHALIC - Eye Exam Eye Exam: EOMI, Normal appearance, PERRL Pupil Exam: NORMAL ACCOMODATION, PERRL - ENT Exam ENT Exam: Mucous Membranes Moist, Normal Exam - Neck Exam Neck Exam: Full ROM, Normal Inspection. absent: Lymphadenopathy - Respiratory Exam Respiratory Exam: Clear to Ausculation Bilateral, NORMAL BREATHING PATTERN - Cardiovascular Exam Cardiovascular Exam: REGULAR RHYTHM, RRR, +S1, +S2. absent: Murmur - GI/Abdominal Exam GI & Abdominal Exam: Soft, Normal Bowel Sounds. absent: Tenderness - Extremities Exam Extremities Exam: Full ROM, Normal Capillary Refill, Normal Inspection. absent : Joint Swelling, Pedal Edema - Back Exam Back Exam: NORMAL INSPECTION - Neurological Exam Neurological Exam: Alert, Awake, CN II-XII Intact, Normal Gait, Oriented x3 - Psychiatric Exam Psychiatric exam: Normal Affect, Normal Mood - Skin Skin Exam: Dry, Intact, Normal Color, Warm Assessment and Plan (1) Acute worsening of stage 3 chronic kidney disease Status: Acute (2) CHF (congestive heart failure) Status: Acute (3) DVT prophylaxis Status: Acute (4) HTN (hypertension) Status: Chronic - Assessment and Plan (Free Text) Assessment: (1) Acute worsening of stage 3 chronic kidney disease Assessment and Plan: lasix, po hydration trend bun/cr monitor bw, Status: Acute (2) CHF (congestive heart failure) Assessment and Plan: lasix, cardio, arb Status: Acute (3) DVT prophylaxis Assessment and Plan: scd and aehose lovneox Status: Acute (4) HTN (hypertension) Assessment and Plan: lasix, arb cardio Status: Chronic (5) afib-rate control, lovenox 6-dizziness-?? cerumen impaction, juventino, ent at that facility 7-elev bun/cr-?? r/t lasix-decr lasix, will trend
[2016-06-12 07:33] LABS: BASO % 0.8 % (0.0-2.0); EOS # 0.4 K/uL (0.0-0.7); EOS % 6.4 % (0.0-4.0); HEMATOCRIT 36.9 % (35.0-51.0); LYMPH # 1.4 K/uL (1.0-4.3); LYMPH % 23.3 % (20.0-40.0); MEAN CELL VOLUME 94.3 fl (80.0-94.0); MEAN CORPUSCULAR HEMOGLOBIN 31.7 pg (27.0-31.0); MEAN CORPUSCULAR HGB CONC 33.7 g/dL (33.0-37.0); MEAN PLATELET VOLUME 9.5 fl (7.2-11.7); MONO # 1.1 K/uL (0.0-0.8); MONO % 17.9 % (0.0-10.0); NEUT # 3.2 K/uL (1.8-7.0); NEUT % 51.6 % (50.0-75.0); NRBC % 0.1 % (0.0-0.0); RED CELL DISTRIBUTION WIDTH 13.5 % (11.5-14.5); WHITE BLOOD COUNT 6.1 K/uL (4.8-10.8)
--- NOTE | 2016-06-12 07:38 | CP.PCM.DIS ---
Provider - Provider Date of Admission: 06/09/16 14:51 Attending physician: Janay Gutierrez MD Time Spent in preparation of Discharge (in minutes): 15 Diagnosis - Discharge Diagnosis (1) Acute worsening of stage 3 chronic kidney disease Status: Acute (2) CHF (congestive heart failure) Status: Acute (3) DVT prophylaxis Status: Acute (4) HTN (hypertension) Status: Chronic Hospital Course - Lab Results Lab Results: Most Recent Lab Values WBC 9.6 K/uL (4.8-10.8) 06/11/16 05:30 RBC 3.90 Mil/uL (4.40-5.90) L 06/11/16 05:30 Hgb 12.3 g/dL (12.0-18.0) 06/11/16 05:30 Hct 37.1 % (35.0-51.0) 06/11/16 05:30 MCV 95.3 fl (80.0-94.0) H 06/11/16 05:30 MCH 31.6 pg (27.0-31.0) H 06/11/16 05:30 MCHC 33.2 g/dL (33.0-37.0) 06/11/16 05:30 RDW 13.3 % (11.5-14.5) 06/11/16 05:30 Plt Count 219 K/uL (130-400) 06/11/16 05:30 MPV 9.4 fl (7.2-11.7) 06/11/16 05:30 Neut % (Auto) 53.8 % (50.0-75.0) 06/11/16 05:30 Lymph % (Auto) 22.6 % (20.0-40.0) 06/11/16 05:30 [place] % (Auto) 17.4 % (0.0-10.0) H 06/11/16 05:30 Eos % (Auto) 5.5 % (0.0-4.0) H 06/11/16 05:30 Baso % (Auto) 0.7 % (0.0-2.0) 06/11/16 05:30 Neut # 5.1 K/uL (1.8-7.0) 06/11/16 05:30 Lymph # 2.2 K/uL (1.0-4.3) 06/11/16 05:30 [place] # 1.7 K/uL (0.0-0.8) H 06/11/16 05:30 Eos # 0.5 K/uL (0.0-0.7) 06/11/16 05:30 Baso # 0.1 K/uL (0.0-0.2) 06/11/16 05:30 PT 10.6 SECONDS (9.6-11.2) 06/08/16 10:06 INR 1.02 (0.92-1.08) 06/08/16 10:06 APTT 26.6 SECONDS (23.3-32.5) 06/08/16 10:06 Sodium 139 mmol/l (132-148) 06/11/16 05:30 Potassium 3.7 MMOL/L (3.6-5.0) 06/11/16 05:30 Chloride 95 mmol/L (98-107) L 06/11/16 05:30 Carbon Dioxide 27 mmol/L (22-30) 06/11/16 05:30 Anion Gap 21 (10-20) H 06/11/16 05:30 BUN 55 mg/dl (9-20) H 06/11/16 05:30 Creatinine 2.5 mg/dL (0.8-1.5) H 06/11/16 05:30 Est GFR ( Amer) 06/11/16 05:30 Est GFR (Non-Af Amer) 06/11/16 05:30 POC Glucose (mg/dL) 94 mg/dL (65-110) 06/08/16 22:16 Random Glucose 99 mg/dL (75-110) 06/11/16 05:30 Calcium 8.7 mg/dL (8.4-10.2) 06/11/16 05:30 Total Bilirubin 1.2 mg/dl (0.2-1.3) 06/11/16 05:30 AST 27 U/L (17-59) 06/11/16 05:30 ALT 22 U/L (21-72) 06/11/16 05:30 Alkaline Phosphatase 77 U/L (38-126) 06/11/16 05:30 Troponin I 0.0370 ng/mL (0.00-0.120) 06/09/16 05:55 NT-Pro-B Natriuret Pep 982 pg/ml (0-900) H 06/08/16 11:29 Total Protein 7.0 G/DL (6.3-8.2) 06/11/16 05:30 Albumin 3.7 g/dL (3.5-5.0) 06/11/16 05:30 Globulin 3.3 gm/dL (2.2-3.9) 06/11/16 05:30 Albumin/Globulin Ratio 1.1 (1.0-2.1) 06/11/16 05:30 Discharge Exam - Head Exam Head Exam: ATRAUMATIC, NORMAL INSPECTION, NORMOCEPHALIC Discharge Plan - Discharge Medications Prescriptions: Aspirin [Aspirin Chewable] 81 mg PO DAILY #30 chew Valsartan [Diovan] 80 mg PO DAILY #30 tab - Follow Up Plan Condition: FAIR Disposition: REHAB FACILITY/REHAB UNIT Instructions: Heart Failure (DC), Weakness (ED), Dizziness (GEN) Additional Instructions: final dx=dizziness, afib, ckd no further dizziness, vss F/U with Dr Talamantes in [place], Return to ED if needed, Meds per med rec, Trend BUN and creatinine in facility
[2016-06-12 07:41] LABS: ALB/GLOB RATIO 1.1 (1.0-2.1); BILIRUBIN,TOTAL 0.9 mg/dl (0.2-1.3); CALCIUM 8.6 mg/dL (8.4-10.2); POTASSIUM 3.6 MMOL/L (3.6-5.0); TOTAL PROTEIN 7.4 G/DL (6.3-8.2)
--- NOTE | 2016-06-12 08:16 | CP.PCM.PN ---
Subjective - Date & Time of Evaluation Date of Evaluation: 06/12/16 Time of Evaluation: 07:30 - Subjective Subjective: no complaints/distress. no f/c, nv//d pending juventino today bun/cr noted.?? r/t lasix effect no cp, dyspnea, dizziness case d/c w/ cardio Objective - Vital Signs/Intake and Output Vital Signs (last 24 hours): Temp Pulse Resp BP Pulse Ox 98.0 F 72 20 115/72 93 L 06/11/16 16:24 06/11/16 21:49 06/11/16 16:24 06/11/16 21:49 06/11/16 16:24 - Medications Medications: Current Medications Acetaminophen (Tylenol 325mg Tab) 650 mg PO Q6 PRN PRN Reason: Pain, Mild (1-3) Last Admin: 06/09/16 14:00 Dose: 650 mg Aspirin (Aspirin Chewable) 81 mg PO DAILY [facility] Last Admin: 06/11/16 08:49 Dose: 81 mg Carvedilol (Coreg) 12.5 mg PO Q12 [facility] Last Admin: 06/11/16 21:49 Dose: 12.5 mg Enoxaparin Sodium (Lovenox) 100 mg SC Q12 [facility] PRN Reason: Protocol Last Admin: 06/11/16 21:49 Dose: 100 mg Furosemide (Lasix) 20 mg IVP DAILY [facility] Last Admin: 06/11/16 09:20 Dose: 20 mg Lorazepam (Ativan) 0.5 mg PO BID PRN PRN Reason: Anxiety Last Admin: 06/11/16 18:37 Dose: 0.5 mg Valsartan (Diovan) 80 mg PO DAILY [facility] Last Admin: 06/11/16 08:49 Dose: 80 mg - Labs Labs: 06/12/16 05:30 06/12/16 05:30 PT 10.6 SECONDS (9.6-11.2) 06/08/16 10:06 INR 1.02 (0.92-1.08) 06/08/16 10:06 APTT 26.6 SECONDS (23.3-32.5) 06/08/16 10:06 - Constitutional Appears: Well, Non-toxic, No Acute Distress - Head Exam Head Exam: ATRAUMATIC, NORMAL INSPECTION, NORMOCEPHALIC - Eye Exam Eye Exam: EOMI, Normal appearance, PERRL Pupil Exam: NORMAL ACCOMODATION, PERRL - ENT Exam ENT Exam: Mucous Membranes Moist, Normal Exam - Neck Exam Neck Exam: Full ROM, Normal Inspection. absent: Lymphadenopathy - Respiratory Exam Respiratory Exam: Clear to Ausculation Bilateral, NORMAL BREATHING PATTERN - Cardiovascular Exam Cardiovascular Exam: REGULAR RHYTHM, RRR, +S1, +S2. absent: Murmur - GI/Abdominal Exam GI & Abdominal Exam: Soft, Normal Bowel Sounds. absent: Tenderness - Extremities Exam Extremities Exam: Full ROM, Normal Capillary Refill, Normal Inspection. absent : Joint Swelling, Pedal Edema - Back Exam Back Exam: NORMAL INSPECTION - Neurological Exam Neurological Exam: Alert, Awake, CN II-XII Intact, Normal Gait, Oriented x3 - Psychiatric Exam Psychiatric exam: Normal Affect, Normal Mood - Skin Skin Exam: Dry, Intact, Normal Color, Warm Assessment and Plan (1) Acute worsening of stage 3 chronic kidney disease Assessment & Plan: lowered dose of lasix, cardio cont all meds trend Status: Acute (2) CHF (congestive heart failure) Assessment & Plan: cardio cont homeds juventino Status: Acute (3) DVT prophylaxis Assessment & Plan: scd and aehose lovenox Status: Acute (4) HTN (hypertension) Assessment & Plan: cont meds trend has been stable Status: Chronic - Assessment and Plan (Free Text) Assessment: afib-lovenox ?? po anticoag rate control cardio
[2016-06-12] MEDS: Enoxaparin 100 mg Syringe SC SCH (10:14)
[2016-06-12 17:38] VITALS: BP 125/74; PULSE 67; RESP 20; TEMP 98.6; O2SAT 98
== END 2016-06-12 17:58 | DRG 291 ==
LOC: H.ER 09:10 → H.ERHOLD 12:52 → H.TEL 22:14 → OBSVTOIN 06-09 14:51 → H.MEDSURG1 06-09 22:52
PROVIDERS: ADMIT Family Medicine; ATTEND Family Medicine
PROC: 3E0234Z Introduction of Serum, Toxoid and Vaccine into Muscle, Percutaneous Approach (ICD-10-PCS; principal; 2016-06-09)
DX: I13.0 Hypertensive heart and chronic kidney disease with heart failure and stage 1 through stage 4 chronic kidney disease, or unspecified chronic kidney disease (principal); I50.23 Acute on chronic systolic (congestive) heart failure; E11.22 Type 2 diabetes mellitus with diabetic chronic kidney disease; E86.0 Dehydration; F03.90 Unspecified dementia, unspecified severity, without behavioral disturbance, psychotic disturbance, mood disturbance, and anxiety; N18.3 Chronic kidney disease, stage 3 (moderate); I48.2 Chronic atrial fibrillation; F10.20 Alcohol dependence, uncomplicated; E78.5 Hyperlipidemia, unspecified; H61.20 Impacted cerumen, unspecified ear; H91.90 Unspecified hearing loss, unspecified ear; I25.5 Ischemic cardiomyopathy; I25.10 Atherosclerotic heart disease of native coronary artery without angina pectoris; I71.4 Abdominal aortic aneurysm, without rupture; E78.00 Pure hypercholesterolemia, unspecified; Z95.1 Presence of aortocoronary bypass graft; K29.70 Gastritis, unspecified, without bleeding; Z91.14 Patient's other noncompliance with medication regimen; Z91.19 Patient's noncompliance with other medical treatment and regimen; I16.0 Hypertensive urgency; Z79.01 Long term (current) use of anticoagulants; Z86.73 Personal history of transient ischemic attack (TIA), and cerebral infarction without residual deficits; Z23 Encounter for immunization

== ENCOUNTER 2016-08-04 15:15 | Inpatient (IN) | payer MEDICARE, BC ==
[2016-08-04 15:15] VITALS: BMI 26.6
[2016-08-04] MEDS ORDERED: Albuterol-Ipratrop 3 mg / 0.5 (3 ml) UD INH STA (15:41)
[2016-08-04] MEDS ORDERED: Albuterol 0.083% Inhal Sol (2.5 mg/3 mL) UD ONE (15:43)
--- NOTE | 2016-08-04 15:46 | ED PDOC ---
HPI: General Adult Time Seen by Provider: 08/04/16 15:31 Chief Complaint (Nursing): Chest Pain Chief Complaint (Provider): chest pain History Per: Patient History/Exam Limitations: no limitations Current Symptoms Are (Timing): Still Present Recently: Treated By A Physician Additional Complaint(s): 75yo male w/ Hx A-fib, CHF, COPD, CAD, HTN, complaining of shortness of breath and chest discomfort this morning. Patient was on his way to PMD Derik Sotelo's office but became short of breath thus prompting this ED visit. He did not take his medication today. However normally takes diuretic, antihypertensive, vitamin. Not taking any anticoagulants. 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 Past Medical History Reviewed: Historical Data, Nursing Documentation, Vital Signs Vital Signs: Last Vital Signs Temp 98.4 F 08/04/16 15:27 Pulse 78 08/04/16 17:56 Resp 20 08/04/16 15:27 BP 185/101 H 08/04/16 15:27 Pulse Ox 97 08/04/16 17:56 - Medical History PMH: Atrial Fibrillation, CAD, CHF, CVA (mild), Dementia, Diabetes (type II), Gastritis, HTN, Hypercholesterolemia, Chronic Kidney Disease (renal failure) - Surgical History Surgical History: CABG (in 2005) - Family History Family History: States: CAD, Diabetes (father) - Social History Drugs: Denies - Immunization History Hx Tetanus Toxoid Vaccination: No Hx Influenza Vaccination: Yes Hx Pneumococcal Vaccination: No - Home Medications Home Medications: Ambulatory Orders Medication Instructions Recorded Valsartan [Diovan] 80 mg PO DAILY #30 tab 06/09/16 Carvedilol [Coreg] 12.5 mg PO Q12 #60 tab 06/12/16 Furosemide [Lasix] 20 mg PO DAILY #30 tablet 06/12/16 Folic Acid [Folic Acid] 1 mg PO DAILY 08/04/16 Multivitamin [Multi-Vitamin Daily] 1 tab PO DAILY 08/04/16 Thiamine [Vitamin B1 Tab] 100 mg PO DAILY 08/04/16 - Allergies Allergies/Adverse Reactions: Allergies Allergy/AdvReac Type Severity Reaction Status Date / Time No Known Allergies Allergy Verified 06/08/16 09:31 Review of Systems ROS Statement: Except As Marked, All Systems Reviewed And Found Negative Cardiovascular: Positive for: Chest Pain Respiratory: Positive for: Shortness of Breath Physical Exam - Reviewed Nursing Documentation Reviewed: Yes Vital Signs Reviewed: Yes - Physical Exam Appears: Positive for: Non-toxic Head Exam: Positive for: ATRAUMATIC, NORMAL INSPECTION, NORMOCEPHALIC Skin: Positive for: Warm, Dry Eye Exam: Positive for: EOMI, PERRL Cardiovascular/Chest: Positive for: Regular Rate, Rhythm Respiratory: Positive for: Decreased Breath Sounds (bilaterally), Respiratory Distress (mild) Gastrointestinal/Abdominal: Positive for: Other (midline external healed scar) Extremity: Positive for: Other (trace edema bilateral lower extremities) - Laboratory Results Result Diagrams: 08/04/16 15:45 08/04/16 15:45 - ECG ECG Rhythm: Positive for: Atrial Fibrillation, Nonspecific Changes (ST) Rate: 78 O2 Sat by Pulse Oximetry: 97 Medical Decision Making Medical Decision Makin workup for respiratory distress/CHF/COPD. old charts reviewed. had admit in 05/2016 for dyspnea, CHF. Dr. Homa Kincaid consulted. He went to rehab for 1 week afterwards. Duoneb initiated with some response of dyspnea. 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 CXR reveals cardiomegaly Pt not on any ASA or anticoagulation despite CHF/ Afib. Unclear history. Discussed results w family. Requested Dr Kincaid for cardio. 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 Disposition - Clinical Impression Clinical Impression: Chest pain, CHF (congestive heart failure), Respiratory failure - Patient ED Disposition Is Patient to be Admitted: Yes Counseled Patient/Family Regarding: Studies Performed, Diagnosis, Need For Followup - Disposition Disposition Time: 17:30 Condition: STABLE - Pt Status Changed To: Hospital Disposition Of: Inpatient - Admit Certification Admit to Inpatient:: After my assessment, the patient will require hospitalization for at least two midnights. This is because of the severity of symptoms shown, intensity of services needed, and/or the medical risk in this patient being treated as an outpatient. - POA Present On Arrival: None Additional Comments - Additional Comments Additional Comments: Scribe Attestation: Documented by Macho Ferrer acting as a scribe for J. Ziyad, DO. Provider Scribe Attestation: All medical record entries made by the Scribe were at my direction and personally dictated by me. I have reviewed the chart and agree that the record accurately reflects my personal performance of the history, physical exam, medical decision making, and the department course for this patient. I have also personally directed, reviewed, and agree with the discharge instructions and disposition.
[2016-08-04] MEDS ORDERED: Albuterol-Ipratrop 3 mg / 0.5 (3 ml) UD ONE (16:00)
[2016-08-04 16:01] LABS: BASO # 0.1 K/uL (0.0-0.2); BASO % 1.6 % (0.0-2.0); EOS # 0.4 K/uL (0.0-0.7); EOS % 6.9 % (0.0-4.0); HEMATOCRIT 37.9 % (35.0-51.0); LYMPH # 1.4 K/uL (1.0-4.3); LYMPH % 21.6 % (20.0-40.0); MEAN CELL VOLUME 92.8 fl (80.0-94.0); MEAN CORPUSCULAR HEMOGLOBIN 31.2 pg (27.0-31.0); MEAN CORPUSCULAR HGB CONC 33.6 g/dL (33.0-37.0); MEAN PLATELET VOLUME 9.2 fl (7.2-11.7); MONO % 15.2 % (0.0-10.0); NEUT # 3.5 K/uL (1.8-7.0); NEUT % 54.7 % (50.0-75.0); RED CELL DISTRIBUTION WIDTH 13.6 % (11.5-14.5); WHITE BLOOD COUNT 6.4 K/uL (4.8-10.8)
[2016-08-04 16:07] LABS: PARTIAL THROMBOPLASTIN TIME 25.4 SECONDS (23.3-32.5)
[2016-08-04 16:26] LABS: ALB/GLOB RATIO 1.3 (1.0-2.1); ALKALINE PHOSPHATASE 93 U/L (38-126); ALT/SGPT 24 U/L (21-72); AST/SGOT 22 U/L (17-59); BILIRUBIN,TOTAL 0.5 mg/dl (0.2-1.3); BLOOD UREA NITROGEN 26 mg/dl (9-20); CALCIUM 9.1 mg/dL (8.4-10.2); CARBON DIOXIDE 24 mmol/L (22-30); CHLORIDE 106 mmol/L (98-107); GFR AFRICAN-AMERICAN 60; GLUCOSE,RANDOM 124 mg/dL (75-110); POTASSIUM 4.7 MMOL/L (3.6-5.0); SODIUM 140 mmol/l (132-148); TOTAL PROTEIN 7.7 G/DL (6.3-8.2)
--- NOTE | 2016-08-04 17:29 | RAD ---
HISTORY: SOB COMPARISON: Comparison chest 06/08/2016 TECHNIQUE: Chest PA and lateral FINDINGS: LUNGS: No focal consolidation. Suspect minor biapical pleural thickening PLEURA: No significant pleural effusion identified. No pneumothorax apparent. CARDIOVASCULAR: Re- demonstrated are sternotomy wires and CABG clips. Heart appears mildly enlarged. Next aorta is slightly ectatic and uncoiled with atherosclerotic plaque along the aortic knob. OSSEOUS STRUCTURES: No re- demonstrated are multiple of old healed right posterolateral rib fractures. Minor multilevel degenerative spondylosis of the thoracic spine VISUALIZED UPPER ABDOMEN: Normal. OTHER FINDINGS: None. IMPRESSION: Cardiomegaly. No acute consolidation. Biapical pleural thickening. Multiple old healed right posterolateral rib fractures.
[2016-08-04 19:23] LABS: URINE BILIRUBIN NEGATIVE (NEGATIVE); URINE BLOOD NEGATIVE (NEGATIVE); URINE COLOR STRAW (YELLOW); URINE GLUCOSE (UA) NEG (Normal); URINE KETONE NEGATIVE (NEGATIVE); URINE LEUKOCYTE ESTERASE NEG Leu/uL (Negative); URINE PROTEIN 30 mg/dL (NEGATIVE); URINE UROBILINOGEN 0.2-1.0 mg/dL (0.2-1.0)
[2016-08-05] MEDS: Enoxaparin 100 mg Syringe SC SCH ×2 (08:48→21:10)
[2016-08-05] MEDS: Multivitamin With Minerals Tab PO SCH (08:48)
[2016-08-05] MEDS ORDERED: Enoxaparin 40 mg Syringe SC SCH (09:00)
[2016-08-05] MEDS ORDERED: Patient's Own Med (Multivitamin [Multi-Vitamin Daily] 1 TAB) PO SCH (09:00)
[2016-08-05] MEDS ORDERED: Pneumococcal 23-Valent Vaccine IM ONE (10:00)
--- NOTE | 2016-08-05 18:05 | CP.PCM.CON ---
History of Present Illness - History of Present Illness History of Present Illness: I was asked to see patient by Dr. Garcia. Patient is a 75 year old female with PMH HTN, hypercholesterolemia, atrial fibrillation who presents with acute on chronic diastolc dysfunction. The patient has a long history of medical noncompliance. He had a recent admission for CHF and was stablized with diuresis and otpimal medical therapy. he has notfollowed up. Today the patient states that he has become dyspneic at rest. He states he was not discharged on May on medications. He denies current chest pain. Review of Systems - Constitutional Constitutional: absent: As Per HPI, Anorexia, Chills, Daytime Sleepiness, Excessive Sweating, Fatigue, Fever, Frequent Falls, Headache, Increased Appetite , Lethargy, Malaise, Night Sweats, Snoring, Sleep Apnea, Weight Gain, Weight Loss, Weakness, Other - EENT Eyes: absent: As Per HPI, Blind Spots, Blurred Vision, Change in Vision, Decreased Night Vision, Diplopia, Discharge, Dry Eye, Exophthalmos, Floaters, Irritation, Itchy Eyes, Loss of Peripheral Vision, Pain, Photophobia, Requires Corrective Lenses, Sees Flashes, Spots in Vision, Tunnel Vision, Other Visual Disturbances, Loss of Vision, Other Ears: absent: As Per HPI, Decreased Hearing, Ear Discharge, Ear Pain, Tinnitus, Abnormal Hearing, Disequilibrium, Dizziness, Other Nose/Mouth/Throat: absent: As Per HPI, Epistaxis, Nasal Congestion, Nasal Discharge, Nasal Obstruction, Nasal Trauma, Nose Pain, Post Nasal Drip, Sinus Pain, Sinus Pressure, Bleeding Gums, Change in Voice, Dental Pain, Dry Mouth, Dysphagia, Halitosis, Hoarsness, Lip Swelling, Mouth Lesions, Mouth Pain, Odynophagia, Sore Throat, Throat Swelling, Tongue Swelling, Facial Pain, Neck Pain, Neck Mass, Other - Cardiovascular Cardiovascular: Dyspnea, Pedal Edema - Respiratory Respiratory: Dyspnea - Gastrointestinal Gastrointestinal: absent: As Per HPI, Abdominal Pain, Belching, Bloating, Change in Bowel Habits, Change in Stool Character, Coffee Ground Emesis, Constipation, Cramping, Diarrhea, Dyspepsia, Dysphagia, Early Satiety, Excessive Flatus, Fecal Incontinence, Heartburn, Hematemesis, Hematochezia, Loose Stools, Melena, Nausea, Odynophagia, Temesmus, Vomiting, Other - Musculoskeletal Musculoskeletal: absent: As Per HPI, Abnormal Gait, Arthralgias, Atrophy, Back Pain, Deformity, Joint Swelling, Limited Range of Motion, Loss of Height, Muscle Cramps, Muscle Weakness, Myalgias, Neck Pain, Numbness, Radiating Pain into Limb, Stiffness, Tingling, Other - Integumentary Integumentary: absent: As Per HPI, Acne, Alopecia, Bleeding Lesions, Change in Hair, Change in Nails, Change in Pigmentation, Changing Lesions, Dry Skin, Erythema, Furuncle, Hirsutism, Lesions, New Lesions, Non-Healing Lesions, Photosensitivity, Pruritus, Rash, Skin Pain, Skin Ulcer, Sores, Striae, Swelling , Unusual Bruising, Wounds, Jaundice, Other - Neurological Neurological: absent: As Per HPI, Abnormal Gait, Abnormal Hearing, Abnormal Movements, Abnormal Speech, Behavioral Changes, Burning Sensations, Confusion, Convulsions, Disequilibrium, Dizziness, Numbness, Focal Weakness, Frequent Falls , Headaches, Lack of Coordination, Loss of Vision, Memory Loss, Paresthesias, Radicular Pain, Restless Legs, Sensory Deficit, Syncope, Tingling, Tremor, Vertigo, Weakness, Other Visual Disturbances, Other - Psychiatric Psychiatric: absent: As Per HPI, Abnormal Sleep Pattern, Anhedonia, Anxiety, Auditory Hallucinations, Behavioral Changes, Change in Appetite, Change in Libido, Confusion, Depression, Difficulty Concentrating, Hallucinations, Homicidal Ideation, Hopelessness, Irritability, Memory Loss, Mood Swings, Panic Attacks, Paranoia, Suicidal Ideation, Visual Hallucinations, Tactile Hallucinations, Other - Endocrine Endocrine: absent: As Per HPI, Change in Body Appearance, Change in Libido, Cold Intolorance, Deepening of Voice, Excessive Sweating, Fatigue, Flushing, Heat Intolorance, Increase in Ring/Shoe/Hat Size, Palpitations, Polydipsia, Polyphagia, Polyuria, Other - Hematologic/Lymphatic Hematologic: absent: As Per HPI, Easy Bleeding, Easy Bruising, Lymphadenopathy, Other Past Patient History - Tetanus Immunizations Tetanus Immunization: Unknown - Past Medical History & Family History Past Medical History?: Yes - Past Social History Smoking Status: Former Smoker - CARDIAC Hx Cardiac Disorders: Yes Hx Congestive Heart Failure: Yes Hx Hypertension: Yes - PULMONARY Hx Respiratory Disorders: Yes Hx Chronic Obstructive Pulmonary Disease (COPD): Yes - NEUROLOGICAL Hx Neurological Disorder: Yes - HEENT Hx HEENT Problems: No - RENAL Hx Chronic Kidney Disease: Yes (renal failure) - ENDOCRINE/METABOLIC Hx Endocrine Disorders: No - HEMATOLOGICAL/ONCOLOGICAL Hx Blood Disorders: No Hx AIDS: No Hx Human Immunodeficiency Virus (HIV): No - INTEGUMENTARY Hx Dermatological Problems: No - MUSCULOSKELETAL/RHEUMATOLOGICAL Hx Musculoskeletal Disorders: Yes Hx Falls: No - GASTROINTESTINAL Hx Gastritis: Yes - GENITOURINARY/GYNECOLOGICAL Hx Genitourinary Disorders: No - PSYCHIATRIC Hx Psychophysiologic Disorder: No Hx Substance Use: No - SURGICAL HISTORY Hx Coronary Artery Bypass Graft: Yes (in 2005) - ANESTHESIA Hx Anesthesia: Yes Hx Anesthesia Reactions: No Hx Malignant Hyperthermia: No Has any member of the family had a problem w/ anesthesia?: No Meds Allergies/Adverse Reactions: Allergies Allergy/AdvReac Type Severity Reaction Status Date / Time No Known Allergies Allergy Verified 06/08/16 09:31 - Medications Medications: Current Medications Carvedilol (Coreg) 12.5 mg PO Q12 [facility] Last Admin: 08/05/16 08:48 Dose: 12.5 mg Enoxaparin Sodium (Lovenox) 90 mg SC Q12 [facility] PRN Reason: Protocol Last Admin: 08/05/16 08:48 Dose: 90 mg Folic Acid (Folic Acid) 1 mg PO DAILY [facility] Last Admin: 08/05/16 08:48 Dose: 1 mg Furosemide (Lasix) 20 mg IVP Q12 [facility] Last Admin: 08/05/16 08:57 Dose: 20 mg Multivitamins/Minerals (Therapeutic-M Tab) 1 tab PO DAILY [facility] Last Admin: 08/05/16 08:48 Dose: 1 tab Thiamine HCl (Vitamin B1 Tab) 100 mg PO DAILY [facility] Last Admin: 08/05/16 08:48 Dose: 100 mg Valsartan (Diovan) 80 mg PO DAILY [facility] Last Admin: 08/05/16 08:48 Dose: 80 mg Physical Exam - Constitutional Appears: Non-toxic - Head Exam Head Exam: NORMAL INSPECTION - Eye Exam Eye Exam: Normal appearance - ENT Exam ENT Exam: Mucous Membranes Moist - Neck Exam Neck exam: Positive for: Full Rom - Respiratory Exam Respiratory Exam: Decreased Breath Sounds - Cardiovascular Exam Cardiovascular Exam: Irregular Rhythm - GI/Abdominal Exam GI & Abdominal Exam: Normal Bowel Sounds - Rectal Exam Rectal Exam: Deferred - Extremities Exam Extremities exam: Positive for: pedal edema - Back Exam Back exam: NORMAL INSPECTION - Neurological Exam Neurological exam: Alert, Oriented x3 - Psychiatric Exam Psychiatric exam: Normal Affect - Skin Skin Exam: Normal Color Results - Vital Signs Recent Vital Signs: Last Vital Signs Temp 98.8 F 08/05/16 17:00 Pulse 79 08/05/16 17:00 Resp 20 08/05/16 17:00 BP 163/76 H 08/05/16 17:00 Pulse Ox 95 08/05/16 17:00 - Labs Result Diagrams: 08/04/16 15:45 08/04/16 15:45 Labs: Laboratory Results - last 24 hr 08/04/16 08/05/16 08/05/16 18:53 02:12 05:45 POC Glucose (mg/dL) 97 Troponin I < 0.0120 Urine Color Straw Urine Clarity Clear Urine pH 7.0 Ur Specific [place] 1.009 Urine Protein 30 Urine Glucose (UA) Neg Urine Ketones Negative Urine Blood Negative Urine Nitrate Negative Urine Bilirubin Negative Urine Urobilinogen 0.2-1.0 Ur Leukocyte Esterase Neg 08/05/16 12:00 POC Glucose (mg/dL) Troponin I < 0.0120 Urine Color Urine Clarity Urine pH Ur Specific [place] Urine Protein Urine Glucose (UA) Urine Ketones Urine Blood Urine Nitrate Urine Bilirubin Urine Urobilinogen Ur Leukocyte Esterase - EKG Data EKG Interpreted by: Myself Assessment & Plan (1) CHF (congestive heart failure) Assessment and Plan: agustín acute on chronic diastolic dysfunction. will again attempt medical optimization. Status: Acute (2) Atrial fibrillation with controlled ventricular response Assessment and Plan: rate control. Patient is not ideal candidate for coumadin due to poor follow up and medication noncompliance. Status: Acute (3) Diabetes Assessment and Plan: glucose control Status: Acute (4) Aortic valve stenosis Assessment and Plan: calcific aortic valve. will again attempt medical stabilization Status: Chronic (5) CAD (coronary artery disease) Assessment and Plan: will recommend antiplatelet therapy Status: Chronic
[2016-08-06 06:43] LABS: CALCIUM 9.1 mg/dL (8.4-10.2); POTASSIUM 4.5 MMOL/L (3.6-5.0)
--- NOTE | 2016-08-06 07:28 | HP ---
HISTORY OF PRESENT ILLNESS: This is a 75-year-old male with history of multiple medical problems including previous hospital admissions for congestive heart failure and status post coronary artery bypass graft about 10 years ago. The patient presented to Emergency Room with symptoms of shortness of breath and he was found to be on diastolic congestive heart failure. The patient had cardiology evaluation by Dr. Kincaid who knows the patient from previous admission. The patient denied to have any cough or expectoration or fever. ALLERGIES: No known allergy. HOME MEDICATIONS: The patient denied to have any medicine at home, but there are medicines on record of Carvedilol 12.5 grams q. 12 hours, valsartan 80 mg daily, folic acid 1 mg, furosemide 20 mg. PAST MEDICAL HISTORY: As above. SOCIAL HISTORY: No history of smoking, ETOH or substance abuse. FAMILY HISTORY: Noncontributory. PHYSICAL EXAMINATION: GENERAL: The patient is in bed, comfortable after dialysis. VITAL SIGNS: Blood pressure 137/85, temperature 98, respiratory rate 18, and pulse 69. HEENT: Pupils equal, reactive to light. Normal-appearing mucosa of the conjunctivae, oropharyngeal and nasal membrane mucosa. NECK: Supple. No JVD. No carotid bruit. No lymph node. No thyromegaly. CHEST AND LUNGS: Bilateral symmetrical expansion, good air exchange. No rales , no rhonchi. CARDIOVASCULAR: PMI not localized. S1, S2. No additional sounds. ABDOMEN: Normoactive bowel sounds. No tenderness, no organomegaly, no masses. EXTREMITIES: No cyanosis, no clubbing, no edema. CENTRAL NERVOUS SYSTEM: Alert, awake, oriented x 3. No neurological deficits could be appreciated. ASSESSMENT: 1. Acute on chronic diastolic congestive heart failure likely due to noncompliance to medications. 2. Hypertension. 3. Coronary artery disease, status post coronary artery bypass graft. 4. Atrial fibrillation with controlled ventricular rate. PLAN: The patient started on Lovenox 1 mg/kg every 12 hours and then beta bernadette and MAYTE inhibitor were ordered. Continue current medications. Follow up b2b sales professional's recommendations. [facility] S Jose DUTTON cc: [phone] TT: 08/06/2016 07:26:52 mn MTDHerman
[2016-08-06] MEDS: Multivitamin With Minerals Tab PO SCH (08:45)
[2016-08-06] MEDS: Enoxaparin 100 mg Syringe SC SCH (08:46)
--- NOTE | 2016-08-06 09:39 | PQF RENAL ---
Dr. Garcia, (1) In agreement with the diagnosis of CKD? (2) i f yes: please document the Stage of the CKD if known OR: Disagree OR: Unable to determine ER note: Hx. includes :CKD Cardiology note: Past Patient History: RENAL: Hx Chronic Kidney Disease: Yes ( renal failure) H and P: Assessment includes a dx. of: Acute CHF; IV Lasix q 12 hours BUN:26->32 Creatinine:1.4->1.6 Est GFR ( Amer/ Non-Af Amer):60/50->51/42 This form is a permanent part of the medical record Clarification of your documentation is requested to better reflect the severity of illness and intensity of treatment of your patient. Indicators present [] Oliguria/anuria [] Edema/weight gain [] Hyponatremia [] Confusion/mental status changes [] Increased Blood Urea Nitrogen/Creatinine [] Increased Potassium/Decreased potassium [] Anemia (male <13.5, female <12.0) [] Proteinuria [] Metabolic Acidosis OR Alkalosis [] Hypotension/shock [] Decreased GFR [] Other: [] Location in the medical record that reflects the above clinical findings: PHYSICIAN'S RESPONSE Based on your medical judgment of the clinical indicators outlined above, are you treating this patient for a known or suspected: [] Acute Renal Failure [] Acute Kidney Injury [] Azotemia/prerenal azotemia [] Chronic kidney disease Stage I [] Stage II [] Stage III [] Stage IV [] [] Other condition/diagnosis:[] [] If Unable to Determine, please check the box, sign and date. Present On Admission (POA) Indicator: [] Present at the time of admission [] Not present at the time of admission [] Clinically Undetermined In responding to this query, please exercise your independent professional judgment. The fact that a question is asked does not imply that any particular answer is desired or expected. Thank you for your clarification on this documentation. If you have any questions please call. * Thank you, Celestina Whaley RN BSN ext. #[phone] CKD stage 3 Chronic Kidney Disease Stages *[employer]* Stage I GFR >90 Stage II GFR 60-89 Stage III GFR 30-59 Stage IV GFR 15-29 Stage V~~~~~~~~~~ GFR <15~~~~~~~~~~~~~ MTDD
[2016-08-06] MEDS ORDERED: Albuterol-Ipratrop 3 mg / 0.5 (3 ml) UD INH PRN (09:44)
--- NOTE | 2016-08-06 09:46 | PQF GENQUE ---
Dr. Garcia, Please clarify the type of atrial fibrillation:if known >> Chronic >> Paroxysmal >> Permanent >> Persistent >> Other (please specify type) OR >> Unable to determine OR >> Unknown Cardiology note: 2) Atrial fibrillation with controlled ventricular response ; Assessment and Plan: rate control. Patient is not ideal candidate for coumadin due to poor follow up and medication noncompliance. Status: Acute This form is a permanent part of the medical record Clarification of your documentation is requested to better reflect the severity of illness and intensity of treatment of your patient. Indicators present [] Specify: [] [] Specify: [] [] Specify: [] [] Specify: [] Location in the medical record that reflects the above clinical findings: [] Treatment Provided: [] PHYSICIAN'S RESPONSE Based on your medical judgment of the clinical indicators outlined above please clarify the following: [] Practitioner response [] If unable to determine, please check the box, sign and date. Present On Admission (POA) Indicator: [] Present at the time of admission [] Not present at the time of admission [] Clinically Undetermined In responding to this query, please exercise your independent professional judgment. The fact that a question is asked does not imply that any particular answer is desired or expected. Thank you for your clarification on this documentation. If you have any questions please call. * Thank you, Celestina Whaley RN BSN ext. #[phone] Chronic Afib MTDD
[2016-08-06 12:56] VITALS: BP 122/77; PULSE 78; RESP 20; TEMP 98.5; O2SAT 97
[2016-08-06] MEDS ORDERED: Acetylcysteine 10% 4 ML IH SCH (14:00)
--- NOTE | 2016-08-06 18:25 | CARD ---
APPROVED REPORT EXAM: Two-dimensional and M-mode echocardiogram with Doppler and color Doppler. Other Information Quality : AverageRhythm : Atrial Fibrillation INDICATION Atrial Fibrillation Surgery/Intervention CABD DIMENSIONS IVSd1.77 (0.7-1.1cm)LVDd4.01 (3.9-5.9cm) LVOT Diameter2.16 (1.8-2.4cm)PWd1.15 (0.7-1.1cm) IVSs1.93 (0.8-1.2cm)LVDs3.11 (2.5-4.0cm) FS (%) 22.4 %PWs1.19 (0.8-1.2cm) M-Mode DIMENSIONS Left Atrium (MM)3.93 (2.5-4.0cm)IVSd1.21 (0.7-1.1cm) Aortic Root3.46 (2.2-3.7cm)LVDd4.49 (4.0-5.6cm) Aortic Cusp Exc.1.84 (1.5-2.0cm)PWd0.96 (0.7-1.1cm) IVSs1.62 cmFS (%) 23 % LVDs3.46 (2.0-3.8cm)PWs1.21 cm Mitral Valve E/A ratio0.0 TDI E/Lateral E'0.0E/Medial E'0.0 Tricuspid Valve TR Peak [id number] [id number] Peak Gr.23mmHg [id number] LEFT VENTRICLE The left ventricle is normal size. There is moderate concentric left ventricular hypertrophy. Left ventricle systolic function is mildly impaired. The Ejection Fraction is 45-50%. There is normal LV segmental wall motion. Transmitral Doppler flow pattern is Grade I-abnormal relaxation pattern. No left ventricle thrombus noted on this study. There is no ventricular septal defect visualized. There is no left ventricular aneurysm. There is no mass noted in the left ventricle. RIGHT VENTRICLE The right ventricle is normal size. There is normal right ventricular wall thickness. The right ventricular systolic function is normal. ATRIA The left atrium size is normal. The right atrium size is normal. The interatrial septum is intact with no evidence for an atrial septal defect. AORTIC VALVE The aortic valve is moderately sclerotic. No aortic regurgitation is present. There is no aortic valvular stenosis. There is no aortic valvular vegetation. MITRAL VALVE The mitral valve is normal in structure and function. Mitral annular calcification is moderate to severe. There is no evidence of mitral valve prolapse. There is no mitral valve stenosis. There is no mitral valve regurgitation noted. TRICUSPID VALVE The tricuspid valve is normal in structure and function. There is no tricuspid valve regurgitation noted. There is no tricuspid valve prolapse or vegetation. There is no tricuspid valve stenosis. PULMONIC VALVE The pulmonary valve is normal in structure and function. There is no pulmonic valvular regurgitation. There is no pulmonic valvular stenosis. GREAT VESSELS The aortic root is normal in size. The ascending aorta is normal in size. The IVC is normal in size and collapses >50% with inspiration. PERICARDIAL EFFUSION The pericardium appears normal. There is no pleural effusion. <Conclusion> Mildly reduced LV systolic function LVEF 45-50% Concentric LVH Aortic Valve Sclerosis Mitral Annular Calcification
--- NOTE | 2016-08-06 18:53 | CARD ---
APPROVED REPORT EKG Measurement Heart [id number] <Conclusion> Atrial fibrillation Abnormal ECG
--- NOTE | 2016-08-06 18:58 | CARD ---
APPROVED REPORT EKG Measurement Heart [id number] <Conclusion> Atrial fibrillation Nonspecific T wave abnormality Abnormal ECG
--- NOTE | 2016-08-10 08:39 | DS ---
REASON FOR ADMISSION: This is a 75-year-old male with a history of multiple medical problems including coronary artery disease and previous hospital admission for CHF, who was admitted for exacerbation of congestive heart failure. COURSE OF HOSPITALIZATION: The patient was started on his anti failure medications including diuretics, beta blockers and MAYTE inhibitors. The patient tolerated well and he was seen by Dr. Kincaid who recommended medical management. 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 FINAL DIAGNOSES: 1. Acute on ch. diastolic heart failure. 2. Acute on top of chronic diastolic. 3. Hypertension. 4. Coronary artery disease status post coronary artery bypass graft. 5. Congestive heart failure. 6. Hypertension. Zoila Pamela Garcia MD cc: [id number] TT: 08/08/2016 15:37:59 oni YANG
== END 2016-08-06 14:01 | disposition home or self-care (01) | DRG 291 ==
LOC: H.ER 15:15 → H.ERHOLD 17:49 → H.TEL 21:43
PROVIDERS: ADMIT Internal Medicine; ATTEND Internal Medicine
DX: I13.0 Hypertensive heart and chronic kidney disease with heart failure and stage 1 through stage 4 chronic kidney disease, or unspecified chronic kidney disease (principal); I50.33 Acute on chronic diastolic (congestive) heart failure; E11.22 Type 2 diabetes mellitus with diabetic chronic kidney disease; F03.90 Unspecified dementia, unspecified severity, without behavioral disturbance, psychotic disturbance, mood disturbance, and anxiety; J44.9 Chronic obstructive pulmonary disease, unspecified; Z95.1 Presence of aortocoronary bypass graft; I25.10 Atherosclerotic heart disease of native coronary artery without angina pectoris; Z91.14 Patient's other noncompliance with medication regimen; Z86.73 Personal history of transient ischemic attack (TIA), and cerebral infarction without residual deficits; E78.00 Pure hypercholesterolemia, unspecified; Z83.3 Family history of diabetes mellitus; Z82.49 Family history of ischemic heart disease and other diseases of the circulatory system; Z87.891 Personal history of nicotine dependence; I35.0 Nonrheumatic aortic (valve) stenosis; I48.2 Chronic atrial fibrillation; N18.3 Chronic kidney disease, stage 3 (moderate)

== ENCOUNTER 2016-10-18 15:32 | Inpatient (IN) | payer MEDICARE, BC ==
[2016-10-18 15:32] VITALS: BMI 26.6
[2016-10-18] MEDS ORDERED: Albuterol-Ipratrop 3 mg / 0.5 (3 ml) UD INH STA (15:56)
[2016-10-18] MEDS ORDERED: Albuterol-Ipratrop 3 mg / 0.5 (3 ml) UD ONE (16:02)
--- NOTE | 2016-10-18 16:06 | ED PDOC ---
HPI: SOB/CHF/COPD Time Seen by Provider: 10/18/16 15:42 Chief Complaint (Nursing): Shortness Of Breath Chief Complaint (Provider): Chest Pain and Shortness of Breath History Per: Patient History/Exam Limitations: no limitations Onset/Duration Of Symptoms: Days (Ongoing and worsening for 2 days) Current Symptoms Are (Timing): Still Present Quality: Tightness Associated Symptoms: Chest Pain, Ankle/Leg Swelling. denies: Productive Cough Additional Complaint(s): Darwin Tsang, a 75 year old male, who has a past medical history of CAD, COPD , CHF and A-fib presents to the ED today complaining of ongoing and worsening chest pain and shortness of breath x2 days. He describes the chest pain as feeling like a "tightness" in his chest. As per daughter, the patient has also had a wheeze for the past 2 weeks. Patient also notes a mild non productive cough associated with bilateral lower leg edema. He sates that he is compliant with all medications. PMD: Dr. Sotelo Guest Experience Specialist: Dr. Kincaid - Risk Factors PE Risk Factors: Pos: CHF Past Medical History Reviewed: Historical Data, Nursing Documentation, Vital Signs Vital Signs: Last Vital Signs Temp 98.6 F 10/18/16 17:58 Pulse 66 10/18/16 17:58 Resp 18 10/18/16 17:58 BP 113/64 10/18/16 17:58 Pulse Ox 98 10/18/16 17:21 - Medical History PMH: Atrial Fibrillation, CAD, CHF, COPD, CVA (mild), Dementia, Diabetes (type II), Gastritis, HTN, Hypercholesterolemia, Chronic Kidney Disease (renal failure ) Denies: HIV - Surgical History Surgical History: CABG (in 2005) - Family History Family History: States: Unknown Family Hx, CAD, Diabetes (father) - Social History Ex-Smoker (has not smoked in the last 12 months): Yes (Hasn't smoked in over 40 years) Alcohol: None Drugs: Denies - Immunization History Hx Tetanus Toxoid Vaccination: No Hx Influenza Vaccination: Yes Hx Pneumococcal Vaccination: No - Home Medications Home Medications: Ambulatory Orders Medication Instructions Recorded Apixaban [Eliquis] 5 mg PO BID #60 tablet 08/06/16 Folic Acid 1 mg PO DAILY #30 08/06/16 Multimineral/Multivitamin 1 tab PO DAILY #30 tab 08/06/16 [Therapeutic-M Tab] Valsartan [Diovan] 80 mg PO DAILY #30 tab 08/06/16 Carvedilol [Coreg] 25 mg PO Q12H 10/18/16 Furosemide [Lasix] 40 mg PO BID 10/18/16 - Allergies Allergies/Adverse Reactions: Allergies Allergy/AdvReac Type Severity Reaction Status Date / Time No Known Allergies Allergy Verified 06/08/16 09:31 Review of Systems ROS Statement: Except As Marked, All Systems Reviewed And Found Negative Cardiovascular: Positive for: Chest Pain (described as "tightness") Respiratory: Positive for: Cough (mild non productive cough), Shortness of Breath, Wheezing Musculoskeletal: Positive for: Other (Bilateral lower leg edema) Physical Exam - Reviewed Nursing Documentation Reviewed: Yes Vital Signs Reviewed: Yes - Physical Exam Appears: Positive for: Non-toxic, In Acute Distress Head Exam: Positive for: ATRAUMATIC, NORMOCEPHALIC Skin: Positive for: Warm, Dry Eye Exam: Positive for: EOMI, PERRL ENT: Negative for: Pharyngeal Erythema, Tonsillar Exudate Neck: Positive for: Painless ROM, Supple Cardiovascular/Chest: Positive for: Chest Non Tender, Edema, Irregularly Irregular. Negative for: Murmur Respiratory: Positive for: Wheezing, Respiratory Distress. Negative for: Accessory Muscle Use, Rales Gastrointestinal/Abdominal: Positive for: Soft. Negative for: Tenderness Back: Positive for: Normal Inspection. Negative for: Decreased ROM Extremity: Positive for: Normal ROM, Pedal Edema Lymphatic: Negative for: Adenopathy Neurologic/Psych: Positive for: Alert. Negative for: Motor/Sensory Deficits - Laboratory Results Result Diagrams: 10/18/16 16:00 10/18/16 16:00 - ECG ECG Rhythm: Positive for: Normal ST Segment, Atrial Fibrillation (rate controlled) Rate: 71 (Atrial Fibrilation, rate controlled ) O2 Sat by Pulse Oximetry: 98 (RA) Pulse Ox Interpretation: Normal - Radiology X-Ray: Interpreted by Me X-Ray Interpretation: No Acute Disease - Progress Re-evaluation Time: 17:00 Condition: Improving,but remains with symptoms (wheezing) - Physician Consult Information Physician Contacted: Gerardo Kincaid Medical Decision Making Medical Decision Makin Initial Impression: 75 year old male presenting with chest pain and shortness of breath Differentials: CHF, COPD exacerbation, Pneumonia, Bronchitis, Anemia, ACS Needs hospitalization for chest pain w cardiac risk factors, pending ER workup. Initial Plan: * B-type natriuretic * Comp metabolic panel * Lact Acid Plasma * Magnesium * Phosphorous * Toponin * Troponin I Q*H * CBC * Partial prothromboplastin * Prothrombin time * CXR * Blood culture * Duoneb 6ml INH * Peak flow pre/post * Reevaluation * Labs demonstrate kidney failure, which appears chronic when c/w previous labs. Evaluated by Dr Kincaid Guest Experience Specialist in ER. More likely an acute bronchitis/ COPD exacerbation than CHF. But with leg swelling and chest pain will need to continue to follow. OG Caruso to admit for PMD Dr Deepak FOLEY pt and family findings and plan of care. Scribe Attestation: Documented by Betty Coffey acting as a scribe for Ame Soliz MD. Scribe Attestation: All medical record entries made by the Scribe were at my direction and personally dictated by me. I have reviewed the chart and agree that the record accurately reflects my personal performance of the history, physical exam, medical decision making, and the department course for this patient. I have also personally directed, reviewed, and agree with the discharge instructions and disposition. Disposition - Clinical Impression Clinical Impression: CHF (congestive heart failure), Atrial fibrillation, CKD (chronic kidney disease), Bronchitis, Chest pain Discussed With : Joel Caruso Doctor Will See Patient In The: Hospital Counseled Patient/Family Regarding: Studies Performed, Diagnosis - Disposition Disposition Time: 17:00 Condition: SERIOUS - Pt Status Changed To: Hospital Disposition Of: Observation - POA Present On Arrival: None
[2016-10-18 16:25] LABS: BASO # 0.1 K/uL (0.0-0.2); BASO % 0.8 % (0.0-2.0); EOS # 0.5 K/uL (0.0-0.7); HEMOGLOBIN 12.2 g/dL (12.0-18.0); LYMPH # 1.5 K/uL (1.0-4.3); LYMPH % 19.3 % (20.0-40.0); MEAN CELL VOLUME 91.6 fl (80.0-94.0); MEAN CORPUSCULAR HEMOGLOBIN 31.3 pg (27.0-31.0); MEAN CORPUSCULAR HGB CONC 34.1 g/dL (33.0-37.0); MEAN PLATELET VOLUME 9.1 fl (7.2-11.7); MONO % 13.7 % (0.0-10.0); NEUT # 4.6 K/uL (1.8-7.0); NEUT % 60.2 % (50.0-75.0); NRBC % 0.1 % (0.0-0.0); RBC 3.89 Mil/uL (4.40-5.90); RED CELL DISTRIBUTION WIDTH 13.5 % (11.5-14.5); WHITE BLOOD COUNT 7.6 K/uL (4.8-10.8)
[2016-10-18 16:38] LABS: ALB/GLOB RATIO 1.3 (1.0-2.1); ALBUMIN 4.3 g/dL (3.5-5.0); ALT/SGPT 32 U/L (21-72); AST/SGOT 24 U/L (17-59); BLOOD UREA NITROGEN 42 mg/dl (9-20); CALCIUM 8.9 mg/dL (8.4-10.2); GFR AFRICAN-AMERICAN 45; GFR NON-AFRICAN AMERICAN 37; MAGNESIUM 2.2 MG/DL (1.6-2.3)
[2016-10-18 16:47] LABS: B-TYPE NATRIURETIC PEPTIDE 851 pg/ml (0-900)
[2016-10-18 16:54] LABS: INR 1.3 (0.9-1.2); PARTIAL THROMBOPLASTIN TIME 35.2 Seconds (25.6-37.1); PROTHROMBIN TIME 13.3 Seconds (9.8-13.1)
--- NOTE | 2016-10-18 17:24 | CP.PCM.CON ---
History of Present Illness - History of Present Illness History of Present Illness: I was asked to evaluate patient by Dr. Soliz. Patient is a 75 year old male with PMH HTN, CAD s/p CABG, atrial fibrillation mild LV dysfunction (EF 45-50%) who presents with dyspnea . The patient has had previous admissions for volume overload as well as rapid heart rate. He previously has not been compliant with medical therapy, although has been on medical therapy after the last admission. The patient reports progressive dyspnea as well as lower extremity edema. The patient presents to the ER, and was found to have wheezing. He is currently on a nebulizer treatment. He denies current chest pain. Review of Systems - Constitutional Constitutional: absent: As Per HPI, Anorexia, Chills, Daytime Sleepiness, Excessive Sweating, Fatigue, Fever, Frequent Falls, Headache, Increased Appetite , Lethargy, Malaise, Night Sweats, Snoring, Sleep Apnea, Weight Gain, Weight Loss, Weakness, Other - EENT Eyes: absent: As Per HPI, Blind Spots, Blurred Vision, Change in Vision, Decreased Night Vision, Diplopia, Discharge, Dry Eye, Exophthalmos, Floaters, Irritation, Itchy Eyes, Loss of Peripheral Vision, Pain, Photophobia, Requires Corrective Lenses, Sees Flashes, Spots in Vision, Tunnel Vision, Other Visual Disturbances, Loss of Vision, Other Ears: absent: As Per HPI, Decreased Hearing, Ear Discharge, Ear Pain, Tinnitus, Abnormal Hearing, Disequilibrium, Dizziness, Other Nose/Mouth/Throat: absent: As Per HPI, Epistaxis, Nasal Congestion, Nasal Discharge, Nasal Obstruction, Nasal Trauma, Nose Pain, Post Nasal Drip, Sinus Pain, Sinus Pressure, Bleeding Gums, Change in Voice, Dental Pain, Dry Mouth, Dysphagia, Halitosis, Hoarsness, Lip Swelling, Mouth Lesions, Mouth Pain, Odynophagia, Sore Throat, Throat Swelling, Tongue Swelling, Facial Pain, Neck Pain, Neck Mass, Other - Cardiovascular Cardiovascular: Pedal Edema - Respiratory Respiratory: Dyspnea, Wheezing - Gastrointestinal Gastrointestinal: absent: As Per HPI, Abdominal Pain, Belching, Bloating, Change in Bowel Habits, Change in Stool Character, Coffee Ground Emesis, Constipation, Cramping, Diarrhea, Dyspepsia, Dysphagia, Early Satiety, Excessive Flatus, Fecal Incontinence, Heartburn, Hematemesis, Hematochezia, Loose Stools, Melena, Nausea, Odynophagia, Temesmus, Vomiting, Other - Genitourinary Genitourinary: absent: As Per HPI, Change in Urinary Stream, Difficulty Urinating, Dysuria, Flank Pain, Hematuria, Pyuria, Nocturia, Urinary Incontinence, Urinary Frequency, Urinary Hesitance, Urinary Urgency, Voiding Freq/Small Amts, Freq UTI, Hx Renal/Bladder Calculi, Hx /Renal Surgery, Bladder Distension, Other - Musculoskeletal Musculoskeletal: absent: As Per HPI, Abnormal Gait, Arthralgias, Atrophy, Back Pain, Deformity, Joint Swelling, Limited Range of Motion, Loss of Height, Muscle Cramps, Muscle Weakness, Myalgias, Neck Pain, Numbness, Radiating Pain into Limb, Stiffness, Tingling, Other - Integumentary Integumentary: absent: As Per HPI, Acne, Alopecia, Bleeding Lesions, Change in Hair, Change in Nails, Change in Pigmentation, Changing Lesions, Dry Skin, Erythema, Furuncle, Hirsutism, Lesions, New Lesions, Non-Healing Lesions, Photosensitivity, Pruritus, Rash, Skin Pain, Skin Ulcer, Sores, Striae, Swelling , Unusual Bruising, Wounds, Jaundice, Other - Neurological Neurological: absent: As Per HPI, Abnormal Gait, Abnormal Hearing, Abnormal Movements, Abnormal Speech, Behavioral Changes, Burning Sensations, Confusion, Convulsions, Disequilibrium, Dizziness, Numbness, Focal Weakness, Frequent Falls , Headaches, Lack of Coordination, Loss of Vision, Memory Loss, Paresthesias, Radicular Pain, Restless Legs, Sensory Deficit, Syncope, Tingling, Tremor, Vertigo, Weakness, Other Visual Disturbances, Other - Psychiatric Psychiatric: absent: As Per HPI, Abnormal Sleep Pattern, Anhedonia, Anxiety, Auditory Hallucinations, Behavioral Changes, Change in Appetite, Change in Libido, Confusion, Depression, Difficulty Concentrating, Hallucinations, Homicidal Ideation, Hopelessness, Irritability, Memory Loss, Mood Swings, Panic Attacks, Paranoia, Suicidal Ideation, Visual Hallucinations, Tactile Hallucinations, Other - Endocrine Endocrine: absent: As Per HPI, Change in Body Appearance, Change in Libido, Cold Intolorance, Deepening of Voice, Excessive Sweating, Fatigue, Flushing, Heat Intolorance, Increase in Ring/Shoe/Hat Size, Palpitations, Polydipsia, Polyphagia, Polyuria, Other - Hematologic/Lymphatic Hematologic: absent: As Per HPI, Easy Bleeding, Easy Bruising, Lymphadenopathy, Other Past Patient History - Tetanus Immunizations Tetanus Immunization: Unknown - Past Medical History & Family History Past Medical History?: Yes - Past Social History Alcohol: None Drugs: Denies - CARDIAC Hx Atrial Fibrillation: Yes Hx Congestive Heart Failure: Yes Hx Hypercholesterolemia: Yes Hx Hypertension: Yes - PULMONARY Hx Chronic Obstructive Pulmonary Disease (COPD): Yes - NEUROLOGICAL Hx Dementia: Yes - HEENT Hx HEENT Problems: No - RENAL Hx Chronic Kidney Disease: Yes (renal failure) - ENDOCRINE/METABOLIC Hx Endocrine Disorders: No - HEMATOLOGICAL/ONCOLOGICAL Hx Human Immunodeficiency Virus (HIV): No - INTEGUMENTARY Hx Dermatological Problems: No - MUSCULOSKELETAL/RHEUMATOLOGICAL Hx Musculoskeletal Disorders: Yes Hx Falls: No - GASTROINTESTINAL Hx Gastritis: Yes - GENITOURINARY/GYNECOLOGICAL Hx Genitourinary Disorders: No - PSYCHIATRIC Hx Psychophysiologic Disorder: No Hx Substance Use: No - SURGICAL HISTORY Hx Coronary Artery Bypass Graft: Yes (in 2005) - ANESTHESIA Hx Anesthesia: Yes Hx Anesthesia Reactions: No Hx Malignant Hyperthermia: No Meds Allergies/Adverse Reactions: Allergies Allergy/AdvReac Type Severity Reaction Status Date / Time No Known Allergies Allergy Verified 06/08/16 09:31 Physical Exam - Constitutional Appears: Non-toxic - Head Exam Head Exam: NORMAL INSPECTION - Eye Exam Eye Exam: Normal appearance - ENT Exam ENT Exam: Mucous Membranes Moist - Neck Exam Neck exam: Positive for: Full Rom - Respiratory Exam Respiratory Exam: Decreased Breath Sounds, Wheezes - Cardiovascular Exam Cardiovascular Exam: Irregular Rhythm - GI/Abdominal Exam GI & Abdominal Exam: Normal Bowel Sounds - Rectal Exam Rectal Exam: Deferred - Extremities Exam Extremities exam: Positive for: pedal edema - Back Exam Back exam: NORMAL INSPECTION - Neurological Exam Neurological exam: Alert, Oriented x3 - Psychiatric Exam Psychiatric exam: Normal Affect - Skin Skin Exam: Normal Color Results - Vital Signs Recent Vital Signs: Last Vital Signs Temp 98.3 F 10/18/16 15:34 Pulse 71 10/18/16 17:18 Resp 20 10/18/16 16:31 BP 118/71 10/18/16 15:34 Pulse Ox 98 10/18/16 17:18 - Labs Result Diagrams: 10/18/16 16:00 10/18/16 16:00 Labs: Laboratory Results - last 24 hr 08/09/2710/18/16 10/18/16 16:00 16:00 16:00 WBC 7.6 RBC 3.89 L Hgb 12.2 Hct 35.6 MCV 91.6 MCH 31.3 H MCHC 34.1 RDW 13.5 Plt Count 191 MPV 9.1 Neut % (Auto) 60.2 Lymph % (Auto) 19.3 L [place] % (Auto) 13.7 H Eos % (Auto) 6.0 H Baso % (Auto) 0.8 Neut # 4.6 Lymph # 1.5 Parmer # 1.0 H Eos # 0.5 Baso # 0.1 PT INR APTT Sodium 136 Potassium 4.7 Chloride 99 Carbon Dioxide 28 Anion Gap 14 BUN 42 H Creatinine 1.8 H Est GFR ( Amer) 45 Est GFR (Non-Af Amer) 37 Random Glucose 130 H Lactic Acid 1.6 Calcium 8.9 Phosphorus 4.7 H Magnesium 2.2 Total Bilirubin 0.9 AST 24 ALT 32 Alkaline Phosphatase 84 Troponin I < 0.0120 NT-Pro-B Natriuret Pep 851 Total Protein 7.5 Albumin 4.3 Globulin 3.2 Albumin/Globulin Ratio 1.3 10/18/16 16:00 WBC RBC Hgb Hct MCV MCH MCHC RDW Plt Count MPV Neut % (Auto) Lymph % (Auto) [place] % (Auto) Eos % (Auto) Baso % (Auto) Neut # Lymph # Parmer # Eos # Baso # PT 13.3 H INR 1.3 H APTT 35.2 Sodium Potassium Chloride Carbon Dioxide Anion Gap BUN Creatinine Est GFR ( Amer) Est GFR (Non-Af Amer) Random Glucose Lactic Acid Calcium Phosphorus Magnesium Total Bilirubin AST ALT Alkaline Phosphatase Troponin I NT-Pro-B Natriuret Pep Total Protein Albumin Globulin Albumin/Globulin Ratio - EKG Data EKG Interpreted by: Myself - EKG Data EKG Specific Queries Rhythm: Atrial Fib - EKG Data When Compared to Previous EKG: No Significant Change Assessment & Plan (1) Dyspnea Assessment and Plan: chest x ray reviewed. Patient does not appear volume overloaded. Continue current medical therapy consider bronchodilator therapy. continue diuretic therapy. Status: Acute (2) Atrial fibrillation Assessment and Plan: rate controlled. continue Eliquis Status: Chronic (3) Coronary atherosclerosis of [place] coronary artery Assessment and Plan: no current angina Status: Chronic (4) HTN (hypertension) Assessment and Plan: well controlled Status: Chronic
--- NOTE | 2016-10-18 18:25 | RAD ---
HISTORY: Chest pain, shortness of breath. Portable study 16:08. COMPARISON: No prior. FINDINGS: LUNGS: No active pulmonary disease. PLEURA: No significant pleural effusion identified, no pneumothorax apparent. CARDIOVASCULAR: Cardiomegaly. No evidence of acute, significant cardiovascular disease. Incidental Finding(s): Postoperative changes related to sternotomy. OSSEOUS STRUCTURES: No significant abnormalities. Stable healed posterior lateral right rib fractures. VISUALIZED UPPER ABDOMEN: Normal. OTHER FINDINGS: None. IMPRESSION: No active disease. No significant interval change compared to the prior examination(s).
[2016-10-19] MEDS: Albuterol-Ipratrop 3 mg / 0.5 (3 ml) UD INH SCH ×4 (01:01→19:00)
[2016-10-19 06:02] LABS: HEMOGLOBIN 11.5 g/dL (12.0-18.0); MEAN CELL VOLUME 92.1 fl (80.0-94.0); MEAN CORPUSCULAR HGB CONC 33.6 g/dL (33.0-37.0); RBC 3.72 Mil/uL (4.40-5.90); RED CELL DISTRIBUTION WIDTH 13.4 % (11.5-14.5); WHITE BLOOD COUNT 7.6 K/uL (4.8-10.8)
[2016-10-19 06:10] LABS: ALB/GLOB RATIO 1.3 (1.0-2.1); ALBUMIN 4.1 g/dL (3.5-5.0); CALCIUM 8.9 mg/dL (8.4-10.2)
[2016-10-19 06:28] LABS: T4 5.09 ug/dl (5.5-11.0)
[2016-10-19 06:41] LABS: T3 0.776 nmol/L (1.49-2.60)
[2016-10-19] MEDS: Multivitamin With Minerals Tab PO SCH (09:12)
--- NOTE | 2016-10-19 11:05 | CP.PCM.HP ---
<Vera Santacruz - Last Filed: 10/19/16 11:27> History of Present Illness - History of Present Illness History of Present Illness: This is 75 year old male, who has a past medical history of CAD, COPD, CHF and A -fib presenting to the ED yesterday c/o ongoing and worsening chest pain and shortness of breath x2 days. Patient was describing the chest pain as feeling like a "tightness" in his chest. As per ED doctor, he was told by patient's daughter that the patient has also had a wheeze for the past 2 weeks. Patient also noted to have a mild non productive cough associated with bilateral lower leg edema. He states that he is compliant with all medications. Present on Admission - Present on Admission Any Indicators Present on Admission: No History of DVT/PE: No History of Uncontrolled Diabetes: No Urinary Catheter: No Decubitus Ulcer Present: No Review of Systems - Review of Systems All systems: reviewed and no additional remarkable complaints except (as per HPI ) Past Patient History - Tetanus Immunizations Tetanus Immunization: Unknown - Past Medical History & Family History Past Medical History?: Yes - Past Social History Smoking Status: Former Smoker - CARDIAC Hx Atrial Fibrillation: Yes Hx Congestive Heart Failure: Yes Hx Hypercholesterolemia: Yes Hx Hypertension: Yes - PULMONARY Hx Chronic Obstructive Pulmonary Disease (COPD): Yes - NEUROLOGICAL Hx Dementia: Yes - HEENT Hx HEENT Problems: No - RENAL Hx Chronic Kidney Disease: Yes (renal failure) Hx Renal Failure: Yes - ENDOCRINE/METABOLIC Hx Endocrine Disorders: No - HEMATOLOGICAL/ONCOLOGICAL Hx AIDS: No Hx Blood Transfusions: No Hx Human Immunodeficiency Virus (HIV): No - INTEGUMENTARY Hx Dermatological Problems: No - MUSCULOSKELETAL/RHEUMATOLOGICAL Hx Musculoskeletal Disorders: Yes Hx Arthritis: Yes Hx Falls: Yes - GASTROINTESTINAL Hx Gastritis: Yes - GENITOURINARY/GYNECOLOGICAL Hx Genitourinary Disorders: No - PSYCHIATRIC Hx Psychophysiologic Disorder: No Hx Substance Use: No - SURGICAL HISTORY Hx Coronary Artery Bypass Graft: Yes (in 2005) - ANESTHESIA Hx Anesthesia: Yes Hx Anesthesia Reactions: No Hx Malignant Hyperthermia: No Meds Allergies/Adverse Reactions: Allergies Allergy/AdvReac Type Severity Reaction Status Date / Time No Known Allergies Allergy Verified 06/08/16 09:31 Physical Exam - Constitutional Appears: No Acute Distress - Eye Exam Eye Exam: Normal appearance - ENT Exam ENT Exam: Mucous Membranes Moist - Respiratory Exam Respiratory Exam: Wheezes (diffuse, scant mostly in left lung fiel), NORMAL BREATHING PATTERN. absent: Rales, Rhonchi, Respiratory Distress - Cardiovascular Exam Cardiovascular Exam: Irregular Rhythm, +S1, +S2 - GI/Abdominal Exam GI & Abdominal Exam: Normal Bowel Sounds, Soft. absent: Distended, Guarding, Rigid, Tenderness - Extremities Exam Extremities exam: Positive for: pedal edema. Negative for: calf tenderness Additional comments: bilateral lower extremities edema pitting 2+ - Neurological Exam Neurological exam: Alert, Oriented x3 - Psychiatric Exam Psychiatric exam: Normal Affect, Normal Mood - Skin Skin Exam: Dry, Intact, Normal Color Results - Vital Signs Recent Vital Signs: Last Vital Signs Temp 97.5 F L 10/19/16 08:19 Pulse 80 10/19/16 09:11 Resp 20 10/19/16 08:19 BP 125/72 10/19/16 09:11 Pulse Ox 96 10/19/16 08:19 - Labs Result Diagrams: 10/19/16 05:20 10/19/16 05:20 Labs: Laboratory Results - last 24 hr 10/18/16 10/19/16 10/19/16 23:51 05:20 05:20 WBC 7.6 RBC 3.72 L Hgb 11.5 L Hct 34.2 L MCV 92.1 MCH 31.0 MCHC 33.6 RDW 13.4 Plt Count 188 Sodium 137 Potassium 4.8 Chloride 100 Carbon Dioxide 25 Anion Gap 17 BUN 44 H Creatinine 1.9 H Est GFR ( Amer) 42 Est GFR (Non-Af Amer) 35 Random Glucose 161 H Calcium 8.9 Total Bilirubin 0.7 AST 26 ALT 31 Alkaline Phosphatase 78 Troponin I < 0.0120 Total Protein 7.3 Albumin 4.1 Globulin 3.2 Albumin/Globulin Ratio 1.3 Triglycerides 286 H D Cholesterol 222 H LDL Cholesterol Direct 112 HDL Cholesterol 26 L Vitamin B12 530 Thyroxine (T4) 5.09 L Total T3 0.776 L TSH 3rd Generation 0.53 10/19/16 08:48 WBC RBC Hgb Hct MCV MCH MCHC RDW Plt Count Sodium Potassium Chloride Carbon Dioxide Anion Gap BUN Creatinine Est GFR ( Amer) Est GFR (Non-Af Amer) Random Glucose Calcium Total Bilirubin AST ALT Alkaline Phosphatase Troponin I < 0.0120 Total Protein Albumin Globulin Albumin/Globulin Ratio Triglycerides Cholesterol LDL Cholesterol Direct HDL Cholesterol Vitamin B12 Thyroxine (T4) Total T3 TSH 3rd Generation Assessment & Plan (1) Dyspnea Status: Acute Comment: admit to telemetry for continuous monitor. CHF exacerbation vs COPD exacerbation. c/w furosemide 40 mg IV daily. c/w duoneb. c/w valsartan. f/u POtassium levels. replace K+ as needed. K+ WNL today. troponin x 3 WNL. BNP WNl. CXR showed no active disease. Cardiology consult appreciated. f/u cardiology recommendations (2) Atrial fibrillation Status: Chronic Comment: controlled. c/w current management (3) CAD (coronary artery disease) Status: Chronic Comment: no chest pain. c/w current management (4) HTN (hypertension) Status: Chronic Comment: controlled. c/w current medications (5) CKD (chronic kidney disease) stage 3, GFR 30-59 ml/min Status: Chronic Comment: stable GFR 35 - Assessment and Plan (Free Text) Assessment: 75 y/o M with PMHx of CAD, COPD, CHF and A-fib admitted with chest pain and SOB. - Date & Time Date: 10/19/16 Time: 09:00 <Joel Caruso K - Last Filed: 10/22/16 13:15> Results - Vital Signs Recent Vital Signs: Last Vital Signs Temp 98.1 F 10/22/16 12:29 Pulse 66 10/22/16 12:29 Resp 18 10/22/16 12:29 BP 124/80 10/22/16 12:29 Pulse Ox 95 10/22/16 12:29 - Labs Result Diagrams: 10/20/16 05:45 10/22/16 05:50 Labs: Laboratory Results - last 24 hr 10/22/16 05:50 Sodium 136 Potassium 4.9 Chloride 101 Carbon Dioxide 25 Anion Gap 15 BUN 51 H Creatinine 1.6 H Est GFR ( Amer) 51 Est GFR (Non-Af Amer) 42 Random Glucose 160 H Calcium 8.8 Assessment & Plan - Assessment and Plan (Free Text) Assessment: Patient was personally seen and examined by me in rounds with residents. Available labs and diagnostic data reviewed. Case, patient's condition and management plan discussed with residents in rounds. Agree with resident's progress not. Plan: As ordered.
--- NOTE | 2016-10-19 19:18 | CP.PCM.PN ---
Subjective - Date & Time of Evaluation Date of Evaluation: 10/19/16 Time of Evaluation: 17:00 - Subjective Subjective: patient has less dypsnea. Objective - Vital Signs/Intake and Output Vital Signs (last 24 hours): Temp Pulse Resp BP Pulse Ox 98.0 F 90 20 121/76 97 10/19/16 19:08 10/19/16 19:08 10/19/16 19:08 10/19/16 19:08 10/19/16 19:08 Intake and Output: 10/19/16 10/20/16 18:59 06:59 Intake Total 650 Balance 650 - Medications Medications: Current Medications Albuterol/Ipratropium (Duoneb 3 Mg/0.5 Mg (3 Ml) Ud) 3 ml INH RQ6 [facility] Last Admin: 10/19/16 19:00 Dose: 3 ml Apixaban (Eliquis) 5 mg PO BID [facility] PRN Reason: Protocol Last Admin: 10/19/16 16:24 Dose: 5 mg Aspirin (Aspirin Chewable) 81 mg PO DAILY [facility] Last Admin: 10/19/16 11:15 Dose: 81 mg Atorvastatin Calcium (Lipitor) 40 mg PO DAILY [facility] Last Admin: 10/19/16 11:15 Dose: 40 mg Carvedilol (Coreg) 25 mg PO Q12H [facility] Last Admin: 10/19/16 09:11 Dose: 25 mg Folic Acid (Folic Acid) 1 mg PO DAILY [facility] Last Admin: 10/19/16 09:12 Dose: 1 mg Furosemide (Lasix) 40 mg IVP DAILY [facility] Last Admin: 10/19/16 11:15 Dose: 40 mg Multivitamins/Minerals (Therapeutic-M Tab) 1 tab PO DAILY [facility] Last Admin: 10/19/16 09:12 Dose: 1 tab Valsartan (Diovan) 80 mg PO DAILY [facility] Last Admin: 10/19/16 09:12 Dose: 80 mg - Labs Labs: PT 13.3 Seconds (9.8-13.1) H 10/18/16 16:00 INR 1.3 (0.9-1.2) H 10/18/16 16:00 APTT 35.2 Seconds (25.6-37.1) 10/18/16 16:00 - Constitutional Appears: Non-toxic - Head Exam Head Exam: NORMAL INSPECTION - Eye Exam Eye Exam: Normal appearance - ENT Exam ENT Exam: Mucous Membranes Moist - Neck Exam Neck Exam: Full ROM - Respiratory Exam Respiratory Exam: Wheezes - Cardiovascular Exam Cardiovascular Exam: Irregular Rhythm - GI/Abdominal Exam GI & Abdominal Exam: Diminished Bowel Sounds - Rectal Exam Rectal Exam: Deferred - Extremities Exam Extremities Exam: Pedal Edema - Back Exam Back Exam: NORMAL INSPECTION - Neurological Exam Neurological Exam: Alert - Psychiatric Exam Psychiatric exam: Normal Affect Assessment and Plan (1) Dyspnea Assessment & Plan: likley due to COPD exacerbation. Improved on medical therapy Status: Acute (2) Atrial fibrillation Status: Chronic (3) Coronary atherosclerosis of [place] coronary artery Assessment & Plan: no current angina Status: Chronic (4) HTN (hypertension) Status: Chronic
[2016-10-20] MEDS: Albuterol-Ipratrop 3 mg / 0.5 (3 ml) UD INH SCH ×4 (01:03→19:41)
[2016-10-20 06:25] LABS: HEMOGLOBIN 11.1 g/dL (12.0-18.0); MEAN CELL VOLUME 92.2 fl (80.0-94.0); MEAN CORPUSCULAR HEMOGLOBIN 31.1 pg (27.0-31.0); MEAN CORPUSCULAR HGB CONC 33.7 g/dL (33.0-37.0); RBC 3.56 Mil/uL (4.40-5.90); RED CELL DISTRIBUTION WIDTH 13.7 % (11.5-14.5); WHITE BLOOD COUNT 10.3 K/uL (4.8-10.8)
[2016-10-20] MEDS ORDERED: guaiFENesin 200 mg/10 ml Syrup UD PO PRN (06:29)
[2016-10-20 06:34] LABS: CALCIUM 8.9 mg/dL (8.4-10.2)
--- NOTE | 2016-10-20 07:40 | PQF CHF ---
This form is a permanent part of the medical record 10/20/16 Dr. Caruso, Please clarify the TYPE of CHF. Documentation of a history of CHF. Admitted with dyspnea. CXR: No active pulmonary disease. Pro BNP 851. ECHO from July 2016: Mildly reduced LV systolic function 45-50%, concentric LVH, aortic valve sclerosis, mitral annular calcification. Clarification of your documentation is requested to better reflect the severity of illness and intensity of treatment of your patient. Indicators present [x] Diagnosis of CHF and/or history of CHF [x] BNP > 200 [] Imaging Finding of Pulmonary Edema /Pleural Effusions [] Fluid/Volume Overload [] Pitting edema [] Ejection Fraction < 40% (Indicative of Systolic Heart Failure) [x] Ejection Fraction > 40% (Indicative of Diastolic Heart Failure) [x] Dyspnea / Orthopenea / Paroxysmal Nocturnal Dyspnea [] Other: Location in the medical record that reflects the above clinical findings: [] Treatment Provided: [x] PHYSICIAN'S RESPONSE Based on your medical judgment of the clinical indicators outlined above, are you treating this patient for a known or suspected: [] Acute CHF [] Systolic [] Diastolic [] Combined [] Chronic CHF [] Systolic [] Diastolic [] Combined [] Acute on Chronic CHF []Systolic [] Diastolic [] Combined [] CHF due hypertension [] Acute systolic []Chronic systolic [] Acute/ chronic systolic [] Other, please indicate: [] [] If Unable to Determine, please check the box, sign and date. Present On Admission (POA) Indicator: [] Present at the time of admission [] Not present at the time of admission [] Clinically Undetermined In responding to this query, please exercise your independent professional judgment. The fact that a question is asked does not imply that any particular answer is desired or expected. Thank you for your clarification on this documentation. If you have any questions please call:ext [phone] * Thank you, Courtney Gray RN CDMP MTDD
--- NOTE | 2016-10-20 08:20 | CP.PCM.PN ---
<Vera Santacruz - Last Filed: 10/20/16 08:18> Subjective - Date & Time of Evaluation Date of Evaluation: 10/20/16 Time of Evaluation: 07:45 - Subjective Subjective: patient feeling better this morning Patient reports less SOB, but still with a wet non productive cough Denies Cp, N/V, abdominal pain Afebrile No events overnight Objective - Vital Signs/Intake and Output Vital Signs (last 24 hours): Temp Pulse Resp BP Pulse Ox 98.0 F 61 18 147/80 95 10/20/16 08:00 10/20/16 08:00 10/20/16 08:00 10/20/16 08:00 10/20/16 08:00 - Medications Medications: Current Medications Albuterol/Ipratropium (Duoneb 3 Mg/0.5 Mg (3 Ml) Ud) 3 ml INH RQ6 [facility] Last Admin: 10/20/16 07:48 Dose: 3 ml Apixaban (Eliquis) 5 mg PO BID [facility] PRN Reason: Protocol Last Admin: 10/19/16 16:24 Dose: 5 mg Aspirin (Aspirin Chewable) 81 mg PO DAILY [facility] Last Admin: 10/19/16 11:15 Dose: 81 mg Atorvastatin Calcium (Lipitor) 40 mg PO DAILY [facility] Last Admin: 10/19/16 11:15 Dose: 40 mg Carvedilol (Coreg) 25 mg PO Q12H [facility] Last Admin: 10/19/16 21:06 Dose: Not Given Folic Acid (Folic Acid) 1 mg PO DAILY [facility] Last Admin: 10/19/16 09:12 Dose: 1 mg Furosemide (Lasix) 40 mg IVP DAILY [facility] Last Admin: 10/19/16 11:15 Dose: 40 mg Guaifenesin (Robitussin) 200 mg PO TID PRN PRN Reason: Cough Last Admin: 10/20/16 06:41 Dose: 200 mg Multivitamins/Minerals (Therapeutic-M Tab) 1 tab PO DAILY [facility] Last Admin: 10/19/16 09:12 Dose: 1 tab Valsartan (Diovan) 80 mg PO DAILY [facility] Last Admin: 10/19/16 09:12 Dose: 80 mg - Labs Labs: 10/20/16 05:45 10/20/16 05:45 PT 13.3 Seconds (9.8-13.1) H 10/18/16 16:00 INR 1.3 (0.9-1.2) H 10/18/16 16:00 APTT 35.2 Seconds (25.6-37.1) 10/18/16 16:00 - Additional Findings Additional findings: Constitutional Appears: No Acute Distress - Eye Exam Eye Exam: Normal appearance - ENT Exam ENT Exam: Mucous Membranes Moist - Respiratory Exam Respiratory Exam: Wheezes (diffuse, scant mostly in left lung fiel), NORMAL BREATHING PATTERN. absent: Rales, Rhonchi, Respiratory Distress - Cardiovascular Exam Cardiovascular Exam: Irregular Rhythm, +S1, +S2 - GI/Abdominal Exam GI & Abdominal Exam: Normal Bowel Sounds, Soft. absent: Distended, Guarding, Rigid, Tenderness - Extremities Exam Extremities exam: Positive for: pedal edema. Negative for: calf tenderness Additional comments: bilateral lower extremities edema pitting 1+ - Neurological Exam Neurological exam: Alert, Oriented x3 - Psychiatric Exam Psychiatric exam: Normal Affect, Normal Mood - Skin Skin Exam: Dry, Intact, Normal Color Assessment and Plan (1) Dyspnea Assessment & Plan: Most likely to COPD exacerbation Improving c/w current management f/u Cardiology recommendations Status: Acute (2) Atrial fibrillation Assessment & Plan: Controlled c/w current management Status: Chronic (3) CAD (coronary artery disease) Assessment & Plan: Asymptomatic c/w current management Status: Chronic (4) HTN (hypertension) Assessment & Plan: controlled c/w current management Status: Chronic (5) CKD (chronic kidney disease) stage 3, GFR 30-59 ml/min Assessment & Plan: c/w monitoring Status: Chronic <Caruso,Joel K - Last Filed: 10/22/16 13:21> Objective - Vital Signs/Intake and Output Vital Signs (last 24 hours): Temp Pulse Resp BP Pulse Ox 98.1 F 66 18 124/80 95 10/22/16 12:29 10/22/16 12:29 10/22/16 12:29 10/22/16 12:29 10/22/16 12:29 Intake and Output: 10/22/16 10/22/16 06:59 18:59 Intake Total 230 Output Total 1000 Balance -770 - Medications Medications: Current Medications Albuterol/Ipratropium (Duoneb 3 Mg/0.5 Mg (3 Ml) Ud) 3 ml INH RQ6 [facility] Last Admin: 10/22/16 13:19 Dose: 3 ml Apixaban (Eliquis) 5 mg PO BID [facility] PRN Reason: Protocol Last Admin: 10/22/16 09:15 Dose: 5 mg Aspirin (Aspirin Chewable) 81 mg PO DAILY [facility] Last Admin: 10/22/16 09:14 Dose: 81 mg Atorvastatin Calcium (Lipitor) 40 mg PO DAILY [facility] Last Admin: 10/22/16 09:15 Dose: 40 mg Carvedilol (Coreg) 25 mg PO Q12H [facility] Last Admin: 10/22/16 09:14 Dose: 25 mg Folic Acid (Folic Acid) 1 mg PO DAILY [facility] Last Admin: 10/22/16 09:15 Dose: 1 mg Guaifenesin (Robitussin) 200 mg PO TID PRN PRN Reason: Cough Last Admin: 10/20/16 06:41 Dose: 200 mg Methylprednisolone 40 mg/ (Sodium Chloride) 50 mls @ 100 mls/hr IVPB Q12@0100, 1300 [facility] Last Admin: 10/22/16 00:25 Dose: 100 mls/hr Multivitamins/Minerals (Therapeutic-M Tab) 1 tab PO DAILY [facility] Last Admin: 10/22/16 09:15 Dose: 1 tab Valsartan (Diovan) 80 mg PO DAILY [facility] Last Admin: 10/22/16 09:15 Dose: 80 mg - Labs Labs: 10/20/16 05:45 10/22/16 05:50 PT 13.3 Seconds (9.8-13.1) H 10/18/16 16:00 INR 1.3 (0.9-1.2) H 10/18/16 16:00 APTT 35.2 Seconds (25.6-37.1) 10/18/16 16:00 Assessment and Plan - Assessment and Plan (Free Text) Assessment: Patient was personally seen and examined by me in rounds with residents. Available labs and diagnostic data reviewed. Case, patient's condition and management plan discussed with residents in rounds. Agree with resident's progress not. Plan: As ordered.
[2016-10-20] MEDS: Multivitamin With Minerals Tab PO SCH (09:09)
--- NOTE | 2016-10-20 10:01 | US ---
PROCEDURE: Ultrasound of the Kidneys HISTORY: ARF COMPARISON: None available. TECHNIQUE: Sonogram of the kidneys. FINDINGS: RIGHT KIDNEY: Normal in size, contour and echogenicity. No stone, solid mass lesion or hydronephrosis visualized. LEFT KIDNEY: Normal in size, contour and echogenicity. No stone, solid mass lesion or hydronephrosis visualized. 2.7 centimeter interpolar cyst. OTHER FINDINGS: None. IMPRESSION: 2.7 centimeter mid left renal cyst.
--- NOTE | 2016-10-20 11:09 | CP.PCM.PN ---
Subjective - Date & Time of Evaluation Date of Evaluation: 10/20/16 Time of Evaluation: 11:09 Objective - Vital Signs/Intake and Output Vital Signs (last 24 hours): Temp Pulse Resp BP Pulse Ox 98.0 F 61 18 147/80 95 10/20/16 08:00 10/20/16 09:03 10/20/16 08:00 10/20/16 09:07 10/20/16 08:00 - Medications Medications: Current Medications Albuterol/Ipratropium (Duoneb 3 Mg/0.5 Mg (3 Ml) Ud) 3 ml INH RQ6 [facility] Last Admin: 10/20/16 07:48 Dose: 3 ml Apixaban (Eliquis) 5 mg PO BID [facility] PRN Reason: Protocol Last Admin: 10/20/16 09:07 Dose: 5 mg Aspirin (Aspirin Chewable) 81 mg PO DAILY [facility] Last Admin: 10/20/16 09:03 Dose: 81 mg Atorvastatin Calcium (Lipitor) 40 mg PO DAILY [facility] Last Admin: 10/20/16 09:09 Dose: 40 mg Carvedilol (Coreg) 25 mg PO Q12H [facility] Last Admin: 10/20/16 09:03 Dose: 25 mg Folic Acid (Folic Acid) 1 mg PO DAILY [facility] Last Admin: 10/20/16 09:07 Dose: 1 mg Furosemide (Lasix) 40 mg IVP DAILY [facility] Last Admin: 10/20/16 09:07 Dose: 40 mg Guaifenesin (Robitussin) 200 mg PO TID PRN PRN Reason: Cough Last Admin: 10/20/16 06:41 Dose: 200 mg Methylprednisolone 40 mg/ (Sodium Chloride) 50 mls @ 100 mls/hr IVPB Q12 [facility] Multivitamins/Minerals (Therapeutic-M Tab) 1 tab PO DAILY [facility] Last Admin: 10/20/16 09:09 Dose: 1 tab Valsartan (Diovan) 80 mg PO DAILY [facility] Last Admin: 10/20/16 09:04 Dose: 80 mg - Labs Labs: 10/20/16 05:45 10/20/16 05:45 PT 13.3 Seconds (9.8-13.1) H 10/18/16 16:00 INR 1.3 (0.9-1.2) H 10/18/16 16:00 APTT 35.2 Seconds (25.6-37.1) 10/18/16 16:00
[2016-10-20] MEDS: methylPREDNISolone 40 MG in Sodium Chloride 0.9% 50 ML IVPB SCH (13:44)
[2016-10-21] MEDS: methylPREDNISolone 40 MG in Sodium Chloride 0.9% 50 ML IVPB SCH ×2 (00:06→14:16)
[2016-10-21] MEDS: Albuterol-Ipratrop 3 mg / 0.5 (3 ml) UD INH SCH ×4 (01:01→19:32)
[2016-10-21] MEDS: Multivitamin With Minerals Tab PO SCH (09:49)
--- NOTE | 2016-10-21 17:03 | CP.PCM.PN ---
<Vera Santacruz - Last Filed: 10/21/16 17:01> Subjective - Date & Time of Evaluation Date of Evaluation: 10/21/16 Time of Evaluation: 07:30 - Subjective Subjective: patient seen and examined with attending patient feeling better this morning, reports less SOB Denies chest pain, N/V, abdominal pain, or other complains Objective - Vital Signs/Intake and Output Vital Signs (last 24 hours): Temp Pulse Resp BP Pulse Ox 98.1 F 74 18 131/69 95 10/21/16 13:00 10/21/16 13:00 10/21/16 13:00 10/21/16 13:00 10/21/16 13:00 - Medications Medications: Current Medications Albuterol/Ipratropium (Duoneb 3 Mg/0.5 Mg (3 Ml) Ud) 3 ml INH RQ6 [facility] Last Admin: 10/21/16 13:14 Dose: 3 ml Apixaban (Eliquis) 5 mg PO BID [facility] PRN Reason: Protocol Last Admin: 10/21/16 09:49 Dose: 5 mg Aspirin (Aspirin Chewable) 81 mg PO DAILY [facility] Last Admin: 10/21/16 09:48 Dose: 81 mg Atorvastatin Calcium (Lipitor) 40 mg PO DAILY [facility] Last Admin: 10/21/16 09:49 Dose: 40 mg Carvedilol (Coreg) 25 mg PO Q12H [facility] Last Admin: 10/21/16 09:48 Dose: 25 mg Folic Acid (Folic Acid) 1 mg PO DAILY [facility] Last Admin: 10/21/16 09:49 Dose: 1 mg Furosemide (Lasix) 40 mg IVP DAILY [facility] Last Admin: 10/21/16 09:49 Dose: 40 mg Guaifenesin (Robitussin) 200 mg PO TID PRN PRN Reason: Cough Last Admin: 10/20/16 06:41 Dose: 200 mg Methylprednisolone 40 mg/ (Sodium Chloride) 50 mls @ 100 mls/hr IVPB Q12@0100, 1300 [facility] Last Admin: 10/21/16 14:16 Dose: 100 mls/hr Multivitamins/Minerals (Therapeutic-M Tab) 1 tab PO DAILY [facility] Last Admin: 10/21/16 09:49 Dose: 1 tab Valsartan (Diovan) 80 mg PO DAILY [facility] Last Admin: 10/21/16 09:48 Dose: 80 mg - Labs Labs: 10/20/16 05:45 10/20/16 05:45 PT 13.3 Seconds (9.8-13.1) H 10/18/16 16:00 INR 1.3 (0.9-1.2) H 10/18/16 16:00 APTT 35.2 Seconds (25.6-37.1) 10/18/16 16:00 - Constitutional Appears: No Acute Distress - Eye Exam Eye Exam: Normal appearance - ENT Exam ENT Exam: Mucous Membranes Moist - Respiratory Exam Respiratory Exam: Clear to Ausculation Bilateral (upper lobes B/L), Wheezes ( scant , diffuse, however less than yesterday), NORMAL BREATHING PATTERN. absent : Rales, Rhonchi, Respiratory Distress - Cardiovascular Exam Cardiovascular Exam: REGULAR RHYTHM, +S1, +S2 - GI/Abdominal Exam GI & Abdominal Exam: Soft, Normal Bowel Sounds. absent: Guarding, Rigid, Tenderness - Extremities Exam Extremities Exam: Normal Inspection. absent: Calf Tenderness, Pedal Edema - Neurological Exam Neurological Exam: Alert, Awake, Oriented x3 - Psychiatric Exam Psychiatric exam: Normal Affect, Normal Mood - Skin Skin Exam: Dry, Intact, Normal Color Assessment and Plan (1) Dyspnea Assessment & Plan: improving c/w steroid c/w duoneb c/w respiratory monitoring Status: Acute (2) Atrial fibrillation Assessment & Plan: controlled c/w current management Status: Chronic (3) CAD (coronary artery disease) Assessment & Plan: controlled Asymptomatic Status: Chronic (4) HTN (hypertension) Assessment & Plan: Controlled c/w current management Status: Chronic (5) CKD (chronic kidney disease) stage 3, GFR 30-59 ml/min Assessment & Plan: stable Status: Chronic (6) Unsteady gait Assessment & Plan: Transfer to TCU Status: Acute <Caruso,Joel K - Last Filed: 10/22/16 13:24> Objective - Vital Signs/Intake and Output Vital Signs (last 24 hours): Temp Pulse Resp BP Pulse Ox 98.1 F 66 18 124/80 95 10/22/16 12:29 10/22/16 12:29 10/22/16 12:29 10/22/16 12:29 10/22/16 12:29 Intake and Output: 10/22/16 10/22/16 06:59 18:59 Intake Total 230 Output Total 1000 Balance -770 - Medications Medications: Current Medications Albuterol/Ipratropium (Duoneb 3 Mg/0.5 Mg (3 Ml) Ud) 3 ml INH RQ6 [facility] Last Admin: 10/22/16 13:19 Dose: 3 ml Apixaban (Eliquis) 5 mg PO BID [facility] PRN Reason: Protocol Last Admin: 10/22/16 09:15 Dose: 5 mg Aspirin (Aspirin Chewable) 81 mg PO DAILY [facility] Last Admin: 10/22/16 09:14 Dose: 81 mg Atorvastatin Calcium (Lipitor) 40 mg PO DAILY [facility] Last Admin: 10/22/16 09:15 Dose: 40 mg Carvedilol (Coreg) 25 mg PO Q12H [facility] Last Admin: 10/22/16 09:14 Dose: 25 mg Folic Acid (Folic Acid) 1 mg PO DAILY [facility] Last Admin: 10/22/16 09:15 Dose: 1 mg Guaifenesin (Robitussin) 200 mg PO TID PRN PRN Reason: Cough Last Admin: 10/20/16 06:41 Dose: 200 mg Methylprednisolone 40 mg/ (Sodium Chloride) 50 mls @ 100 mls/hr IVPB Q12@0100, 1300 [facility] Last Admin: 10/22/16 00:25 Dose: 100 mls/hr Multivitamins/Minerals (Therapeutic-M Tab) 1 tab PO DAILY [facility] Last Admin: 10/22/16 09:15 Dose: 1 tab Valsartan (Diovan) 80 mg PO DAILY [facility] Last Admin: 10/22/16 09:15 Dose: 80 mg - Labs Labs: 10/20/16 05:45 10/22/16 05:50 PT 13.3 Seconds (9.8-13.1) H 10/18/16 16:00 INR 1.3 (0.9-1.2) H 10/18/16 16:00 APTT 35.2 Seconds (25.6-37.1) 10/18/16 16:00
[2016-10-22] MEDS: methylPREDNISolone 40 MG in Sodium Chloride 0.9% 50 ML IVPB SCH ×2 (00:25→13:52)
[2016-10-22 00:27] VITALS: RESP 18
[2016-10-22] MEDS: Albuterol-Ipratrop 3 mg / 0.5 (3 ml) UD INH SCH ×3 (01:04→13:19)
[2016-10-22 06:37] LABS: CALCIUM 8.8 mg/dL (8.4-10.2)
[2016-10-22 08:03] VITALS: TEMP 98.1
--- NOTE | 2016-10-22 08:32 | CP.PCM.DIS ---
Provider - Provider Date of Admission: 10/19/16 16:42 Attending physician: Joel Caruso MD Time Spent in preparation of Discharge (in minutes): 30 Diagnosis - Discharge Diagnosis (1) Dyspnea Status: Acute Comment: improving. most likely 2/2 COPD exacerbation and Systolic CHF exacerbation combination. c/w steroid to complete 5 days. c/w duoneb. stop diuretic. c/w clinical status monitoring (2) Atrial fibrillation Status: Chronic (3) CAD (coronary artery disease) Status: Chronic (4) HTN (hypertension) Status: Chronic (5) CKD (chronic kidney disease) stage 3, GFR 30-59 ml/min Status: Chronic (6) Unsteady gait Status: Acute Hospital Course - Lab Results Lab Results: Most Recent Lab Values WBC 10.3 K/uL (4.8-10.8) 10/20/16 05:45 RBC 3.56 Mil/uL (4.40-5.90) L 10/20/16 05:45 Hgb 11.1 g/dL (12.0-18.0) L 10/20/16 05:45 Hct 32.9 % (35.0-51.0) L 10/20/16 05:45 MCV 92.2 fl (80.0-94.0) 10/20/16 05:45 MCH 31.1 pg (27.0-31.0) H 10/20/16 05:45 MCHC 33.7 g/dL (33.0-37.0) 10/20/16 05:45 RDW 13.7 % (11.5-14.5) 10/20/16 05:45 Plt Count 180 K/uL (130-400) 10/20/16 05:45 MPV 9.1 fl (7.2-11.7) 10/18/16 16:00 Neut % (Auto) 60.2 % (50.0-75.0) 10/18/16 16:00 Lymph % (Auto) 19.3 % (20.0-40.0) L 10/18/16 16:00 [place] % (Auto) 13.7 % (0.0-10.0) H 10/18/16 16:00 Eos % (Auto) 6.0 % (0.0-4.0) H 10/18/16 16:00 Baso % (Auto) 0.8 % (0.0-2.0) 10/18/16 16:00 Neut # 4.6 K/uL (1.8-7.0) 10/18/16 16:00 Lymph # 1.5 K/uL (1.0-4.3) 10/18/16 16:00 [place] # 1.0 K/uL (0.0-0.8) H 10/18/16 16:00 Eos # 0.5 K/uL (0.0-0.7) 10/18/16 16:00 Baso # 0.1 K/uL (0.0-0.2) 10/18/16 16:00 PT 13.3 Seconds (9.8-13.1) H 10/18/16 16:00 INR 1.3 (0.9-1.2) H 10/18/16 16:00 APTT 35.2 Seconds (25.6-37.1) 10/18/16 16:00 Sodium 136 mmol/l (132-148) 10/22/16 05:50 Potassium 4.9 MMOL/L (3.6-5.0) 10/22/16 05:50 Chloride 101 mmol/L (98-107) 10/22/16 05:50 Carbon Dioxide 25 mmol/L (22-30) 10/22/16 05:50 Anion Gap 15 (10-20) 10/22/16 05:50 BUN 51 mg/dl (9-20) H 10/22/16 05:50 Creatinine 1.6 mg/dL (0.8-1.5) H 10/22/16 05:50 Est GFR ( Amer) 51 10/22/16 05:50 Est GFR (Non-Af Amer) 42 10/22/16 05:50 POC Glucose (mg/dL) 145 mg/dL (65-110) H 10/18/16 15:47 Random Glucose 160 mg/dL (75-110) H 10/22/16 05:50 Lactic Acid 1.6 MMOL/L (0.7-2.1) 10/18/16 16:00 Calcium 8.8 mg/dL (8.4-10.2) 10/22/16 05:50 Phosphorus 4.7 mg/dl (2.5-4.5) H 10/18/16 16:00 Magnesium 2.2 MG/DL (1.6-2.3) 10/18/16 16:00 Total Bilirubin 0.7 mg/dl (0.2-1.3) 10/19/16 05:20 AST 26 U/L (17-59) 10/19/16 05:20 ALT 31 U/L (21-72) 10/19/16 05:20 Alkaline Phosphatase 78 U/L (38-126) 10/19/16 05:20 Troponin I < 0.0120 ng/mL (0.00-0.120) 10/19/16 08:48 NT-Pro-B Natriuret Pep 851 pg/ml (0-900) 10/18/16 16:00 Total Protein 7.3 G/DL (6.3-8.2) 10/19/16 05:20 Albumin 4.1 g/dL (3.5-5.0) 10/19/16 05:20 Globulin 3.2 gm/dL (2.2-3.9) 10/19/16 05:20 Albumin/Globulin Ratio 1.3 (1.0-2.1) 10/19/16 05:20 Triglycerides 286 mg/DL (0-149) H D 10/19/16 05:20 Cholesterol 222 mg/dL (0-199) H 10/19/16 05:20 LDL Cholesterol Direct 112 mg/dL (0-129) 10/19/16 05:20 HDL Cholesterol 26 MG/DL (30-70) L 10/19/16 05:20 Vitamin B12 530 pg/mL (239-931) 10/19/16 05:20 Thyroxine (T4) 5.09 ug/dl (5.5-11.0) L 10/19/16 05:20 Total T3 0.776 nmol/L (1.49-2.60) L 10/19/16 05:20 TSH 3rd Generation 0.53 mIU/ML (0.46-4.68) 10/19/16 05:20 - Hospital Course Hospital Course: 75 y/o M with PMHx of CAD, COPD, CHF and A-fib admitted with chest pain and SOB to r/o ACS. Series Troponin I x 3 were negative, and ACS was ruled out. Patient symptoms/signs have been improved with medical therapy. Afebrile during admission. Patient was started on duoneb schedule, steroid and diuretics. Patient evaluated by PT who recommended TCU for management of unsteady gait and weakness. Patient stable to be transfer to TCU today. - Date & Time of H&P Date of H&P: 10/19/16 Time of H&P: 11:00 Discharge Exam - Head Exam Head Exam: NORMAL INSPECTION - Eye Exam Eye Exam: Normal appearance - ENT Exam ENT Exam: Mucous Membranes Moist - Respiratory Exam Respiratory Exam: Clear to PA & Lateral, NORMAL BREATHING PATTERN - Cardiovascular Exam Cardiovascular Exam: Irregular Rhythm, +S1, +S2 - GI/Abdominal Exam GI & Abdominal Exam: Normal Bowel Sounds, Soft. absent: Distended, Guarding, Tenderness - Extremities Exam Extremities exam: normal inspection Additional comments: no calf tenderness - Neurological Exam Neurological exam: Alert, Oriented x3 - Psychiatric Exam Psychiatric exam: Normal Affect, Normal Mood - Skin Skin Exam: Dry, Intact, Normal Color Discharge Plan - Discharge Medications Prescriptions: methylPREDNISolone [Solu-MEDROL] 30 mg IV BID #6 ml - Follow Up Plan Condition: STABLE Disposition: TRANSF TO SNF Patient education suggested?: Yes Instructions: Heart Failure (DC) Additional Instructions: patient cleared for discharge to TCU today by cont. Medrol IV cont. hold lasix 2nd BALTA monitor cbc, bmp Referrals: Joel Caruso MD [Staff Provider] -
[2016-10-22] MEDS: Multivitamin With Minerals Tab PO SCH (09:15)
--- NOTE | 2016-10-22 12:14 | CP.PCM.PN ---
Objective - Vital Signs/Intake and Output Vital Signs (last 24 hours): Temp Pulse Resp BP Pulse Ox 98.1 F 76 18 138/88 97 10/22/16 08:03 10/22/16 09:14 10/22/16 08:03 10/22/16 09:14 10/22/16 08:03 Intake and Output: 10/22/16 10/22/16 06:59 18:59 Intake Total 230 Output Total 1000 Balance -770 - Medications Medications: Current Medications Albuterol/Ipratropium (Duoneb 3 Mg/0.5 Mg (3 Ml) Ud) 3 ml INH RQ6 [facility] Last Admin: 10/22/16 07:32 Dose: 3 ml Apixaban (Eliquis) 5 mg PO BID [facility] PRN Reason: Protocol Last Admin: 10/22/16 09:15 Dose: 5 mg Aspirin (Aspirin Chewable) 81 mg PO DAILY [facility] Last Admin: 10/22/16 09:14 Dose: 81 mg Atorvastatin Calcium (Lipitor) 40 mg PO DAILY [facility] Last Admin: 10/22/16 09:15 Dose: 40 mg Carvedilol (Coreg) 25 mg PO Q12H [facility] Last Admin: 10/22/16 09:14 Dose: 25 mg Folic Acid (Folic Acid) 1 mg PO DAILY [facility] Last Admin: 10/22/16 09:15 Dose: 1 mg Guaifenesin (Robitussin) 200 mg PO TID PRN PRN Reason: Cough Last Admin: 10/20/16 06:41 Dose: 200 mg Methylprednisolone 40 mg/ (Sodium Chloride) 50 mls @ 100 mls/hr IVPB Q12@0100, 1300 [facility] Last Admin: 10/22/16 00:25 Dose: 100 mls/hr Multivitamins/Minerals (Therapeutic-M Tab) 1 tab PO DAILY [facility] Last Admin: 10/22/16 09:15 Dose: 1 tab Valsartan (Diovan) 80 mg PO DAILY [facility] Last Admin: 10/22/16 09:15 Dose: 80 mg - Labs Labs: 10/20/16 05:45 10/22/16 05:50 PT 13.3 Seconds (9.8-13.1) H 10/18/16 16:00 INR 1.3 (0.9-1.2) H 10/18/16 16:00 APTT 35.2 Seconds (25.6-37.1) 10/18/16 16:00
[2016-10-22 12:29] VITALS: BP 124/80; PULSE 66; O2SAT 95
== END 2016-10-22 13:59 | DRG 191 ==
LOC: H.ER 15:32 → H.ERHOLD 17:14 → H.TEL 18:39 → OBSVTOIN 10-19 16:42
PROVIDERS: ADMIT Internal Medicine; ATTEND Internal Medicine
DX: J44.1 Chronic obstructive pulmonary disease with (acute) exacerbation (principal); I13.0 Hypertensive heart and chronic kidney disease with heart failure and stage 1 through stage 4 chronic kidney disease, or unspecified chronic kidney disease; F03.90 Unspecified dementia, unspecified severity, without behavioral disturbance, psychotic disturbance, mood disturbance, and anxiety; I50.22 Chronic systolic (congestive) heart failure; E11.22 Type 2 diabetes mellitus with diabetic chronic kidney disease; I48.2 Chronic atrial fibrillation; N18.3 Chronic kidney disease, stage 3 (moderate); I25.10 Atherosclerotic heart disease of native coronary artery without angina pectoris; E78.00 Pure hypercholesterolemia, unspecified; K29.70 Gastritis, unspecified, without bleeding; R26.81 Unsteadiness on feet; D64.9 Anemia, unspecified; Z91.19 Patient's noncompliance with other medical treatment and regimen; Z79.01 Long term (current) use of anticoagulants; Z87.891 Personal history of nicotine dependence; Z95.1 Presence of aortocoronary bypass graft; Z86.73 Personal history of transient ischemic attack (TIA), and cerebral infarction without residual deficits

== ENCOUNTER 2016-10-22 12:49 | Inpatient (IN) | payer OTHER, BC ==
[2016-10-22 15:07] VITALS: BMI 32.4
[2016-10-22] MEDS ORDERED: MethylPREDNISolone 40 mg Vial IV SCH (17:00)
[2016-10-22] MEDS: methylPREDNISolone 30 MG in Sodium Chloride 0.9% 50 ML IVPB SCH (17:16)
[2016-10-22] MEDS: Albuterol-Ipratrop 3 mg / 0.5 (3 ml) UD INH SCH (19:10)
[2016-10-23] MEDS: Albuterol-Ipratrop 3 mg / 0.5 (3 ml) UD INH SCH ×4 (01:00→19:33)
[2016-10-23] MEDS: methylPREDNISolone 30 MG in Sodium Chloride 0.9% 50 ML IVPB SCH ×2 (04:22→16:45)
[2016-10-23 08:37] LABS: HEMATOCRIT 35.4 % (35.0-51.0); MEAN CORPUSCULAR HEMOGLOBIN 31.1 pg (27.0-31.0); MEAN CORPUSCULAR HGB CONC 33.8 g/dL (33.0-37.0); RED CELL DISTRIBUTION WIDTH 13.4 % (11.5-14.5); WHITE BLOOD COUNT 8.8 K/uL (4.8-10.8)
[2016-10-23 08:57] LABS: ALB/GLOB RATIO 1.4 (1.0-2.1); BILIRUBIN,TOTAL 0.7 mg/dl (0.2-1.3); CALCIUM 8.9 mg/dL (8.4-10.2); TOTAL PROTEIN 7.2 G/DL (6.3-8.2)
[2016-10-23] MEDS: Multivitamin With Minerals Tab PO SCH (08:59)
[2016-10-23] MEDS: guaiFENesin 200 mg/10 ml Syrup UD PO PRN (09:00)
--- NOTE | 2016-10-23 18:39 | HP ---
TRANSITIONAL CARE NOTE CHIEF COMPLIANT: The patient was transferred from medical floor for optimization of treatment. HISTORY OF PRESENT ILLNESS: This is a 75-year-old male, known case of COPD, CHF, coronary artery disease, obesity, atrial fibrillation, who was having shortness of breath, so the patient was brought to the emergency room and was admitted for further management of COPD and CHF. The patient was stabilized on medical floor and was transferred to transitional care for further management and optimization. REVIEW OF SYSTEMS: At this time is negative for headache, dizziness, syncope, loss of consciousness, chest pain, shortness of breath, nausea, vomiting, diarrhea, constipation, any new joint or extremity pain. Review of systems of all other organ system is unremarkable. PAST MEDICAL HISTORY: Significant for coronary artery disease, COPD, CHF, atrial fibrillation, obesity. PAST SURGICAL HISTORY: Unremarkable. PERSONAL HISTORY: The patient is currently nonsmoker and nondrinker. No substance abuse. MEDICATIONS: The patient is on multiple medications which is as per the conciliation sheet, which was reviewed and ordered. At home the patient seems to be noncompliant with medication. ALLERGIES: THE PATIENT IS NOT ALLERGIC TO ANY MEDICATION. PHYSICAL EXAMINATION: GENERAL: A well-developed, well-nourished, overweight 75-year-old male in no acute distress. VITAL SIGNS: Temperature of 96.4, pulse 60, respirations 20, and blood pressure 151/81. HEENT: Pupils are reactive to light. No JVD. No thyromegaly. No lymphadenopathy. No nystagmus. Normocephalic and atraumatic skull. HEART: S1 and S2 normal and regular. No significant murmur, gallop, or rub is heard. LUNGS: Shows good bilateral air exchange. No rales or rhonchi. ABDOMEN: Soft and nontender. No organomegaly, no bruits. Bowel sounds are plus. EXTREMITIES: No edema. No calf swelling. No tenderness. No acute ischemia. 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 DIAGNOSTIC DATA: Available diagnostic data reviewed. ADMITTING IMPRESSION: Chronic obstructive pulmonary disease with exacerbation, congestive heart failure, hypertension, morbid obesity, coronary artery disease. PLAN: As ordered. Case and plan discussed with patient. Joel Caruso MD [facility] # [id number]
[2016-10-23 21:31] VITALS: RESP 20
[2016-10-24] MEDS: Albuterol-Ipratrop 3 mg / 0.5 (3 ml) UD INH SCH ×4 (01:00→19:13)
[2016-10-24] MEDS: methylPREDNISolone 30 MG in Sodium Chloride 0.9% 50 ML IVPB SCH ×2 (04:52→16:42)
[2016-10-24] MEDS: Multivitamin With Minerals Tab PO SCH (08:12)
[2016-10-25] MEDS: Albuterol-Ipratrop 3 mg / 0.5 (3 ml) UD INH SCH ×4 (01:03→19:43)
[2016-10-25] MEDS: methylPREDNISolone 30 MG in Sodium Chloride 0.9% 50 ML IVPB SCH (05:25)
--- NOTE | 2016-10-25 05:27 | PN ---
DATE: 10/24/2016 SUBJECTIVE: The patient is seen and examined. Interim events noted. The patient remains in transitional care unit. In general no specific complaints. No chest pain. No shortness of breath. PHYSICAL EXAMINATION GENERAL: The is in no acute distress. VITAL SIGNS: Stable. CARDIOPULMONARY: S1, S2 normal. LUNGS: Good bilateral air exchange. ABDOMEN: Soft, nontender. EXTREMITIES: No edema. No calf pain. No tenderness. No acute ischemia. CENTRAL NERVOUS SYSTEM: Essentially unchanged. DIAGNOSTIC DATA: Available diagnostic data reviewed. ASSESSMENT: Overall, the patient's general medical condition stable and improved. PLAN: As ordered. Treatment plan discussed with the patient. Joel Caruso MD
[2016-10-25] MEDS: Multivitamin With Minerals Tab PO SCH (08:31)
[2016-10-25] MEDS: methylPREDNISolone 20 MG in Sodium Chloride 0.9% 50 ML IVPB SCH (16:39)
[2016-10-26] MEDS: Albuterol-Ipratrop 3 mg / 0.5 (3 ml) UD INH SCH ×4 (01:00→19:27)
[2016-10-26] MEDS: methylPREDNISolone 20 MG in Sodium Chloride 0.9% 50 ML IVPB SCH (04:33)
--- NOTE | 2016-10-26 04:42 | PN ---
DATE: 10/25/2016 SUBJECTIVE: The patient is seen and examined. Interim events noted. The patient remains in transitional care unit. The patient feels okay. Breathing improved. No chest pain. No shortness of breath. PHYSICAL EXAMINATION GENERAL: The patient is in no acute distress. VITAL SIGNS: Stable. HEART: S1 and S2 normal and regular. LUNGS: Good bilateral air exchange. ABDOMEN: Soft and nontender. EXTREMITIES: No edema. No calf swelling. No tenderness. No acute ischemia. CENTRAL NERVOUS SYSTEM: Essentially unchanged. DIAGNOSTIC DATA: Available diagnostic data reviewed. ASSESSMENT: Overall, the patient is medically stable and improving. We will get his culture report. PLAN: As ordered. Case and plan discussed with the patient. Joel Caruso MD
[2016-10-26 07:38] LABS: HEMATOCRIT 36.1 % (35.0-51.0); MEAN CELL VOLUME 93.5 fl (80.0-94.0); MEAN CORPUSCULAR HEMOGLOBIN 31.1 pg (27.0-31.0); MEAN CORPUSCULAR HGB CONC 33.3 g/dL (33.0-37.0); WHITE BLOOD COUNT 9.2 K/uL (4.8-10.8)
[2016-10-26 08:00] LABS: ALB/GLOB RATIO 1.3 (1.0-2.1); BILIRUBIN,TOTAL 0.7 mg/dl (0.2-1.3); CALCIUM 8.6 mg/dL (8.4-10.2); POTASSIUM 5.4 MMOL/L (3.6-5.0); TOTAL PROTEIN 6.4 G/DL (6.3-8.2)
[2016-10-26] MEDS: guaiFENesin 200 mg/10 ml Syrup UD PO PRN (08:50)
[2016-10-26] MEDS: Multivitamin With Minerals Tab PO SCH (08:56)
[2016-10-26] MEDS: methylPREDNISolone 10 MG in Sodium Chloride 0.9% 50 ML IVPB SCH (16:42)
[2016-10-27] MEDS: Albuterol-Ipratrop 3 mg / 0.5 (3 ml) UD INH SCH ×4 (01:02→19:01)
[2016-10-27] MEDS: methylPREDNISolone 10 MG in Sodium Chloride 0.9% 50 ML IVPB SCH (04:37)
--- NOTE | 2016-10-27 08:57 | PN ---
DATE: 10/26/2016SUBJECTIVE: The patient is seen and examined. Interim events noted. The patient remains in transitional care unit. Feels better. No chest pain. No shortness of breath. PHYSICAL EXAMINATION: GENERAL: The patient is in no acute distress. VITAL SIGNS: Stable. HEART: S1 and S2 normal and regular. LUNGS: Good bilateral air exchange. ABDOMEN: Soft and nontender. EXTREMITIES: No edema. No calf swelling. No tenderness. No acute ischemia. CENTRAL NERVOUS SYSTEM: Essentially unchanged. DIAGNOSTIC DATA: Available diagnostic data reviewed. ASSESSMENT: Overall, the patient's medical condition is fairly improved. PLAN: As ordered. Joel Caruso MD
[2016-10-27] MEDS: Multivitamin With Minerals Tab PO SCH (09:00)
--- NOTE | 2016-10-27 11:11 | PN ---
DATE: 10/27/2016 SUBJECTIVE: The patient seen and examined. Interim events noted. The patient remains in transitional care unit, feels much better, ambulating normally with no shortness of breath, appears comfortable going home, and would be able to do his ADL. PHYSICAL EXAMINATION GENERAL: The patient is in no acute distress. VITAL SIGNS: Stable. HEART: S1 and S2 normal and regular. LUNGS: Good bilateral air entry. ABDOMEN: Soft and nontender. EXTREMITIES: No edema. No calf swelling. No tenderness. No acute ischemia. CENTRAL NERVOUS SYSTEM: Essentially unchanged. DIAGNOSTIC DATA: Available diagnostic data reviewed. ASSESSMENT: Overall, the patient is medically stable. We will start oral steroids. PLAN: As ordered. Joel Caruso MD
[2016-10-28] MEDS: Albuterol-Ipratrop 3 mg / 0.5 (3 ml) UD INH SCH ×4 (01:00→19:02)
[2016-10-28] MEDS: Multivitamin With Minerals Tab PO SCH (08:35)
[2016-10-29] MEDS: Albuterol-Ipratrop 3 mg / 0.5 (3 ml) UD INH SCH ×4 (01:53→19:19)
[2016-10-29] MEDS: Multivitamin With Minerals Tab PO SCH (09:18)
[2016-10-29 09:27] LABS: CALCIUM 8.4 mg/dL (8.4-10.2); POTASSIUM 4.4 MMOL/L (3.6-5.0)
--- NOTE | 2016-10-29 16:42 | PN ---
DATE: 10/29/2016 SUBJECTIVE: The patient seen and examined. Interim events noted. The patient remains in transitional care unit. The patient feels much better. No chest pain. No shortness of breath. Able to ambulate with physical therapy. The patient fairly improved. The patient feels that he should be ready to go home and do his own ADLs without assistance. PHYSICAL EXAMINATION: GENERAL: The patient is in no acute distress. VITAL SIGNS: Stable. HEART: S1 and S2 normal and regular. LUNGS: Good bilateral air entry. ABDOMEN: Soft and nontender. EXTREMITIES: No edema. No calf swelling. No tenderness. No acute ischemia. 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 ASSESSMENT: The patient is off steroid, tolerating well without any chronic exacerbation. Overall, the patient is medically stable. PLAN: As ordered. Joel Caruso MD
--- NOTE | 2016-10-29 16:47 | PN ---
DATE: 10/28/2016 SUBJECTIVE: The patient was seen and examined. No interim events were noted. The patient felt okay. Denied any specific GI complaints. No chest pain, no shortness of breath. PHYSICAL EXAMINATION: GENERAL: The patient is in no acute distress. VITAL SIGNS: Stable. HEART: S1 and S2 normal and regular.. ASSESSMENT: Overall, the patient is medically stable. There is no kind of any acute respiratory exacerbation, steroids tapering. PLAN: As ordered. Joel Caruso MD
[2016-10-30] MEDS: Albuterol-Ipratrop 3 mg / 0.5 (3 ml) UD INH SCH ×4 (01:00→19:21)
--- NOTE | 2016-10-30 09:54 | PN ---
DATE: 10/30/2016 SUBJECTIVE: The patient seen and examined. Interim events noted. The patient remains in transitional care unit. The patient is okay. No chest pain. No shortness of breath. No dizziness. The patient is ambulating around, eating well, drinking adequately, moving his bowels, and passing urine adequately. PHYSICAL EXAMINATION: GENERAL: The patient is in no acute distress. VITAL SIGNS: Stable. HEART: S1 and S2 normal and regular. LUNGS: Good bilateral air entry. ABDOMEN: Soft and nontender. EXTREMITIES: No edema. No calf swelling. No tenderness. No acute ischemia. 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 DIAGNOSTIC DATA: Available diagnostic data reviewed. BUN is elevated at 51, although the patient does not have any clinical sign of dehydration. The patient is not on any diuretic. ASSESSMENT: Overall, the patient's general medical condition is stable. PLAN: As ordered. Joel Caruso MD
[2016-10-30] MEDS: Multivitamin With Minerals Tab PO SCH (18:35)
[2016-10-31] MEDS: Albuterol-Ipratrop 3 mg / 0.5 (3 ml) UD INH SCH ×4 (01:00→19:36)
[2016-10-31] MEDS: Multivitamin With Minerals Tab PO SCH (09:18)
--- NOTE | 2016-10-31 09:29 | PN ---
DATE: 10/31/2016 SUBJECTIVE: The patient was seen and examined. Interim events noted. The patient remains in transitional care unit. Complains of occasional headache. No chest pain. No shortness of breath. PHYSICAL EXAMINATION: GENERAL: The patient is in no acute distress. VITAL SIGNS: Stable. HEART: S1 and S2 normal and regular. LUNGS: Good bilateral air exchange. ABDOMEN: Soft and nontender. EXTREMITIES: No edema. No calf swelling. No tenderness. No acute ischemia. CENTRAL NERVOUS SYSTEM: Essentially unchanged. There is no sign of any acute gross focal, motor or sensory neurological deficit. DIAGNOSTIC DATA: Available diagnostic data reviewed. Today's labs are pending. IMPRESSION: Overall, the patient's general medical condition is stable. PLAN: As ordered. Joel Caruso MD
[2016-11-01] MEDS: Albuterol-Ipratrop 3 mg / 0.5 (3 ml) UD INH SCH ×4 (01:00→19:07)
[2016-11-01] MEDS: Multivitamin With Minerals Tab PO SCH (09:03)
--- NOTE | 2016-11-01 13:10 | PN ---
DATE: 11/01/2016 SUBJECTIVE: The patient is seen and examined. Interim events noted. The patient remains in transitional care unit. The patient feels okay. No chest pain. No shortness of breath. Tolerating current treatment very well, also able to ambulate. PHYSICAL EXAMINATION GENERAL: The patient is in no acute distress. VITAL SIGNS: Stable. HEART: S1, S2, normal, regular. LUNGS: Good bilateral air exchange. ABDOMEN: Soft, nontender EXTREMITIES: No edema. No calf swelling. no tenderness. No acute ischemia. CENTRAL NERVOUS SYSTEM: Essentially unchanged. DIAGNOSTIC DATA: Available diagnostic data reviewed. ASSESSMENT: Overall, the patient's general medical condition is stable. PLAN: As ordered. Joel Caruso MD
[2016-11-02] MEDS: Albuterol-Ipratrop 3 mg / 0.5 (3 ml) UD INH SCH ×4 (01:02→19:54)
[2016-11-02] MEDS: Multivitamin With Minerals Tab PO SCH (09:22)
[2016-11-02 09:32] LABS: HEMATOCRIT 31.3 % (35.0-51.0); MEAN CELL VOLUME 93.6 fl (80.0-94.0); MEAN CORPUSCULAR HEMOGLOBIN 31.6 pg (27.0-31.0); MEAN CORPUSCULAR HGB CONC 33.8 g/dL (33.0-37.0); RED CELL DISTRIBUTION WIDTH 14.2 % (11.5-14.5); WHITE BLOOD COUNT 7.6 K/uL (4.8-10.8)
[2016-11-02 09:50] LABS: ALB/GLOB RATIO 1.1 (1.0-2.1); BILIRUBIN,TOTAL 0.9 mg/dl (0.2-1.3); CALCIUM 7.9 mg/dL (8.4-10.2); POTASSIUM 4.7 MMOL/L (3.6-5.0); TOTAL PROTEIN 5.6 G/DL (6.3-8.2)
[2016-11-02] MEDS ORDERED: Enoxaparin 40 mg Syringe SC SCH (10:45)
--- NOTE | 2016-11-02 11:10 | PN ---
DATE: 11/02/2016 SUBJECTIVE: The patient is seen and examined. Interim events noted. Consults noted and appreciated. The patient remains in transitional care unit. The patient feels much better. No chest pain. No shortness of breath; ambulating well and ready to go home. PHYSICAL EXAMINATION: GENERAL: The patient is in no acute distress. VITAL SIGNS: Stable. HEART: S1 and S2 normal and regular. LUNGS: Good bilateral air exchange. ABDOMEN: Soft and nontender. EXTREMITIES: No edema. No calf swelling. No tenderness. No acute ischemia. CENTRAL NERVOUS SYSTEM: Essentially unchanged. DIAGNOSTIC DATA: Available diagnostic data reviewed. ASSESSMENT: Overall, the patient's general medical condition is stable. The patient will be discharged today. We will repeat CBC, SMA-7 before discharge. The patient will be followed up by primary care physician. PLAN: Case and plan discussed with the patient. Joel Caruso MD
[2016-11-02] MEDS ORDERED: Albuterol-Ipratrop 3 mg / 0.5 (3 ml) UD INH STA (17:25)
[2016-11-03] MEDS: Albuterol-Ipratrop 3 mg / 0.5 (3 ml) UD INH SCH ×4 (01:29→19:38)
--- NOTE | 2016-11-03 08:22 | PN ---
DATE: 11/03/2016 SUBJECTIVE: The patient is seen and examined. Interim events noted. the patient was discharged yesterday, but had episode of bronchospasm, so the patient returned back. Currently, the patient feels okay. No chest pain. No shortness of breath. PHYSICAL EXAMINATION GENERAL: The patient is in no acute distress. VITAL SIGNS: Stable. HEART: S1 and S2 normal. LUNGS: Good bilateral air entry. No rales or rhonchi. ABDOMEN: Soft and nontender. EXTREMITIES: The patient has minimal edema probably combination of dependent varicose vein and heart failure. CENTRAL NERVOUS SYSTEM: Essentially unchanged. DIAGNOSTIC DATA: Available diagnostic data reviewed. BUN and creatinine is acceptable. PLAN: We will start the patient on low dose Lasix. discussed with the patient. Joel Caruso MD
[2016-11-03] MEDS: Multivitamin With Minerals Tab PO SCH (09:12)
[2016-11-03 17:01] VITALS: BP 119/73; PULSE 68; TEMP 98.1; O2SAT 97
== END 2016-11-03 20:10 | DRG 192 ==
LOC: H.TCU 15:08
PROVIDERS: ADMIT Internal Medicine; ATTEND Internal Medicine
PROC: F08Z4ZZ Home Management Treatment (ICD-10-PCS; principal; 2016-10-22)
PROC: F07Z9ZZ Gait Training/Functional Ambulation Treatment (ICD-10-PCS; 2016-10-22)
PROC: F07L6ZZ Therapeutic Exercise Treatment of Musculoskeletal System - Lower Back / Lower Extremity (ICD-10-PCS; 2016-10-22)
PROC: F07Z5ZZ Bed Mobility Treatment (ICD-10-PCS; 2016-10-22)
PROC: F07Z9FZ Gait Training/Functional Ambulation Treatment using Assistive, Adaptive, Supportive or Protective Equipment (ICD-10-PCS; 2016-10-22)
PROC: 5A0955Z Assistance with Respiratory Ventilation, Greater than 96 Consecutive Hours (ICD-10-PCS; 2016-10-22)
DX: J44.9 Chronic obstructive pulmonary disease, unspecified (principal); I11.0 Hypertensive heart disease with heart failure; I48.91 Unspecified atrial fibrillation; I50.9 Heart failure, unspecified; E66.3 Overweight; Z68.33 Body mass index [BMI] 33.0-33.9, adult; I25.10 Atherosclerotic heart disease of native coronary artery without angina pectoris; E66.9 Obesity, unspecified

== ENCOUNTER 2016-11-24 04:50 | Inpatient (IN) | payer MEDICARE, BC ==
[2016-11-24 04:51] VITALS: BMI 32.4
--- NOTE | 2016-11-24 05:58 | ED PDOC ---
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 Notes that pain is left sided and that he was sleeping at time of onset. States he received 3 tabs of nitroglycerin from EMS that provided no relief. Upon arrival to ED, patient notes that pain has completely resolved. PCP: ANTHONY Past Medical History Reviewed: Historical Data, Nursing Documentation, Vital Signs Vital Signs: Last Vital Signs Temp 98.6 F 11/24/16 06:52 Pulse 70 11/24/16 06:52 Resp 16 11/24/16 06:52 BP 128/69 11/24/16 06:52 Pulse Ox 97 11/24/16 06:52 - Medical History PMH: Arthritis, Atrial Fibrillation, CAD, CHF, COPD, CVA (mild), Dementia, Diabetes (type II), Gastritis, HTN, Hypercholesterolemia, Chronic Kidney Disease (renal failure) Denies: HIV - Surgical History Surgical History: CABG (in 2005) - Family History Family History: States: Unknown Family Hx, CAD, Diabetes (father) - Social History Ex-Smoker (has not smoked in the last 12 months): Yes Alcohol: None (Ex-drinker) Drugs: Denies - Immunization History Hx Tetanus Toxoid Vaccination: No Hx Influenza Vaccination: Yes Hx Pneumococcal Vaccination: No - Home Medications Home Medications: Ambulatory Orders Medication Instructions Recorded Apixaban [Eliquis] 5 mg PO BID #60 tablet 08/06/16 Folic Acid 1 mg PO DAILY #30 08/06/16 Multimineral/Multivitamin 1 tab PO DAILY #30 tab 08/06/16 [Therapeutic-M Tab] Carvedilol [Coreg] 25 mg PO Q12H 10/18/16 Albuterol/Ipratropium [Duoneb 3 3 ml INH RQ6 10/22/16 mg/0.5 mg (3 ml) UD] Aspirin [Aspirin Chewable] 81 mg PO DAILY 10/22/16 Atorvastatin [Lipitor] 40 mg PO DAILY tab 10/22/16 guaiFENesin [Robitussin] 200 mg PO TID PRN 10/22/16 Acetaminophen [Tylenol 325mg tab] 650 mg PO Q6 PRN tab 11/02/16 Valsartan [Diovan] 320 mg PO DAILY tab 11/02/16 Furosemide [Lasix] 20 mg PO DAILY 11/03/16 - Allergies Allergies/Adverse Reactions: Allergies Allergy/AdvReac Type Severity Reaction Status Date / Time No Known Allergies Allergy Verified 06/08/16 09:31 GAVIN Risk Score for UA/NSTEMI - GAVIN Risk Score Age > 64: YES 3 or more CAD Risk Factors: YES GAVIN Score: 2 Risk %: 8% Curb-65 Severity Score - CURB-65 Severity Score Confusion: No Respiratory Rate greater than/equal to 30: No Systolic BP <90 or Diastolic BP less than/equal 60mmHg: No Age >64: No Curb-65 Score: 0 Percentage 30-day mortality: 0.6% Wells Criteria for PE - Wells Criteria for Pulmonary Embolism Clinical Signs and Symptoms of DVT: No Heart Rate >100: No Previous, objectively diagnosed PE or DVT: No Hemoptysis: No Malignancy w/treatment within 6 months, or palliative: No Total Score: 0 Review of Systems ROS Statement: Except As Marked, All Systems Reviewed And Found Negative Cardiovascular: Positive for: Chest Pain Physical Exam - Reviewed Nursing Documentation Reviewed: Yes Vital Signs Reviewed: Yes - Physical Exam Appears: Positive for: Well, Non-toxic, No Acute Distress Head Exam: Positive for: ATRAUMATIC, NORMOCEPHALIC Skin: Positive for: Normal Color, Warm, Dry Eye Exam: Positive for: EOMI, Normal appearance, PERRL ENT: Positive for: Normal ENT Inspection Neck: Positive for: Normal, Painless ROM Cardiovascular/Chest: Positive for: Regular Rate, Rhythm. Negative for: Bradycardia Respiratory: Positive for: Wheezing (extremely faint wheeze bilaterally). Negative for: Respiratory Distress Gastrointestinal/Abdominal: Positive for: Normal Exam, Bowel Sounds, Soft. Negative for: Tenderness Back: Positive for: Normal Inspection Extremity: Positive for: Normal ROM, Swelling (trace pitting edema in bilateral lower extremities). Negative for: Deformity Neurologic/Psych: Positive for: Alert, Oriented. Negative for: Motor/Sensory Deficits - Laboratory Results Result Diagrams: 11/24/16 06:06 11/24/16 06:06 - ECG ECG Rhythm: Positive for: Atrial Fibrillation. Negative for: ST/T Changes Rate: 61 O2 Sat by Pulse Oximetry: 98 (RA) Pulse Ox Interpretation: Normal Medical Decision Making Medical Decision Makin Initial impression: rule out CAD Initial plan: * Labs * Trop I * Chest x-ray 07 Patient will be signed out to Dr. Lackey pending troponin and admission to Dr. Caruso. Scribe Attestation: Documented by Yola Mtz acting as a scribe for Jabari Winston MD. Scribe Attestation: All medical record entries made by the Scribe were at my direction and personally dictated by me. I have reviewed the chart and agree that the record accurately reflects my personal performance of the history, physical exam, medical decision making, and the department course for this patient. I have also personally directed, reviewed, and agree with the discharge instructions and disposition. Disposition - Disposition Referrals: Joel Caruso MD [Primary Care Provider] - Disposition: Transfer of Care Disposition Time: 07:00 Condition: STABLE Forms: [employer] (Romanian) Patient Signed Over To: Morena Nieto Handoff Comments: Pending troponin
[2016-11-24 06:26] LABS: BASO # 0.1 K/uL (0.0-0.2); EOS # 0.3 K/uL (0.0-0.7); EOS % 2.7 % (0.0-4.0); HEMATOCRIT 35.9 % (35.0-51.0); LYMPH # 1.5 K/uL (1.0-4.3); LYMPH % 15.5 % (20.0-40.0); MEAN CELL VOLUME 93.3 fl (80.0-94.0); MEAN CORPUSCULAR HEMOGLOBIN 30.1 pg (27.0-31.0); MEAN CORPUSCULAR HGB CONC 32.3 g/dL (33.0-37.0); MEAN PLATELET VOLUME 9.1 fl (7.2-11.7); MONO # 1.6 K/uL (0.0-0.8); MONO % 16.6 % (0.0-10.0); NEUT # 6.1 K/uL (1.8-7.0); NEUT % 64.2 % (50.0-75.0); NRBC % 0.1 % (0.0-0.0); WHITE BLOOD COUNT 9.5 K/uL (4.8-10.8)
[2016-11-24 06:34] LABS: ALB/GLOB RATIO 1.4 (1.0-2.1); ALKALINE PHOSPHATASE 113 U/L (38-126); ALT/SGPT 27 U/L (21-72); AST/SGOT 20 U/L (17-59); BILIRUBIN,TOTAL 0.9 mg/dl (0.2-1.3); BLOOD UREA NITROGEN 29 mg/dl (9-20); CARBON DIOXIDE 25 mmol/L (22-30); CHLORIDE 103 mmol/L (98-107); GFR AFRICAN-AMERICAN 55; GLUCOSE,RANDOM 109 mg/dL (75-110); POTASSIUM 4.6 MMOL/L (3.6-5.0); SODIUM 140 mmol/l (132-148); TOTAL PROTEIN 7.2 G/DL (6.3-8.2)
--- NOTE | 2016-11-24 08:09 | ED PDOC ---
- Laboratory Results Result Diagrams: 11/24/16 06:06 11/24/16 06:06 - ECG O2 Sat by Pulse Oximetry: 98 (RA) Medical Decision Making Medical Decision Making: recd on endorsement from Dr Winston pending bloodwork trop neg moderate anemia chronic elev BUN Dr Caruso in ED 8am, will consult Dr Roberts cardiology Disposition - Clinical Impression Clinical Impression: Acute chest pain - POA Present On Arrival: None - Disposition Referrals: Joel Caruso MD [Primary Care Provider] - Disposition: Hospitalized as Observation Patient Disposition Time: 07:40 Condition: STABLE
[2016-11-24] MEDS ORDERED: Albuterol-Ipratrop 3 mg / 0.5 (3 ml) UD INH PRN (09:01)
[2016-11-24] MEDS ORDERED: guaiFENesin 200 mg/10 ml Syrup UD PO PRN (09:01)
--- NOTE | 2016-11-24 11:57 | RAD ---
HISTORY: Chest pain. Portable study 06:02. COMPARISON: 10/18/2016. TECHNIQUE: Chest PA and lateral FINDINGS: LUNGS: No active pulmonary disease. PLEURA: No significant pleural effusion identified. No pneumothorax apparent. CARDIOVASCULAR: No radiographic findings to suggest acute or significant cardiovascular disease. Fact CABG OSSEOUS STRUCTURES: Multiple old healed rib fractures posterior laterally the right. VISUALIZED UPPER ABDOMEN: Normal. OTHER FINDINGS: None. IMPRESSION: No active disease. No significant interval change compared to the prior examination(s). No preliminary report provided by emergency department personnel.
--- NOTE | 2016-11-24 17:38 | CP.PCM.CON ---
History of Present Illness - History of Present Illness History of Present Illness: 76 y/o male admitted with cp x 1 episode today. Pain was across upper chest, nonradiating, lasted several minutes, resolved on own, he was moving around when it occurred. Pain was moderate in intensity, associated with lightheadedness, no syncope, no n/v, diaphoresis, sob, palp, f/c, cough. Denies OLEA. Denies medication noncompliance, however he is not taking his asa therapy. Review of Systems - Constitutional Constitutional: As Per HPI. absent: Anorexia, Chills, Daytime Sleepiness, Excessive Sweating, Fatigue, Fever, Frequent Falls, Headache, Increased Appetite , Lethargy, Malaise, Night Sweats, Snoring, Sleep Apnea, Weight Gain, Weight Loss, Weakness, Other - EENT Eyes: As Per HPI. absent: Blind Spots, Blurred Vision, Change in Vision, Decreased Night Vision, Diplopia, Discharge, Dry Eye, Exophthalmos, Floaters, Irritation, Itchy Eyes, Loss of Peripheral Vision, Pain, Photophobia, Requires Corrective Lenses, Sees Flashes, Spots in Vision, Tunnel Vision, Other Visual Disturbances, Loss of Vision, Other Ears: As Per HPI. absent: Decreased Hearing, Ear Discharge, Ear Pain, Tinnitus , Abnormal Hearing, Disequilibrium, Dizziness, Other Nose/Mouth/Throat: As Per HPI. absent: Epistaxis, Nasal Congestion, Nasal Discharge, Nasal Obstruction, Nasal Trauma, Nose Pain, Post Nasal Drip, Sinus Pain, Sinus Pressure, Bleeding Gums, Change in Voice, Dental Pain, Dry Mouth, Dysphagia, Halitosis, Hoarsness, Lip Swelling, Mouth Lesions, Mouth Pain, Odynophagia, Sore Throat, Throat Swelling, Tongue Swelling, Facial Pain, Neck Pain, Neck Mass, Other - Cardiovascular Cardiovascular: Chest Pain with Activity, Irregular Heart Rhythm, Lightheadedness. absent: As Per HPI, Acrocyanosis, Chest Pain, Chest Pain at Rest, Claudication, Diaphoresis, Dyspnea, Dyspnea on Exertion, Edema, Pain Radiating to Arm/Neck/Jaw, Leg Edema, Leg Ulcers, Orthopnea, Palpitations, Paroxysmal Nocturnal Dyspnea, Pedal Edema, Radiating Pain, Rapid Heart Rate, Slow Heart Rate, Syncope, Other - Respiratory Respiratory: As Per HPI. absent: Cough, Dyspnea, Hemoptysis, Dyspnea on Exertion, Wheezing, Snoring, Stridor, Pain on Inspiration, Chest Congestion, Excessive Mucous Production, Change in Mucous Color, Pain with Coughing, Other - Gastrointestinal Gastrointestinal: As Per HPI. absent: Abdominal Pain, Belching, Bloating, Change in Bowel Habits, Change in Stool Character, Coffee Ground Emesis, Constipation, Cramping, Diarrhea, Dyspepsia, Dysphagia, Early Satiety, Excessive Flatus, Fecal Incontinence, Heartburn, Hematemesis, Hematochezia, Loose Stools, Melena, Nausea, Odynophagia, Temesmus, Vomiting, Other - Genitourinary Genitourinary: As Per HPI. absent: Change in Urinary Stream, Difficulty Urinating, Dysuria, Flank Pain, Hematuria, Pyuria, Nocturia, Urinary Incontinence, Urinary Frequency, Urinary Hesitance, Urinary Urgency, Voiding Freq/Small Amts, Freq UTI, Hx Renal/Bladder Calculi, Hx /Renal Surgery, Bladder Distension, Other - Musculoskeletal Musculoskeletal: As Per HPI. absent: Abnormal Gait, Arthralgias, Atrophy, Back Pain, Deformity, Joint Swelling, Limited Range of Motion, Loss of Height, Muscle Cramps, Muscle Weakness, Myalgias, Neck Pain, Numbness, Radiating Pain into Limb, Stiffness, Tingling, Other - Integumentary Integumentary: As Per HPI. absent: Acne, Alopecia, Bleeding Lesions, Change in Hair, Change in Nails, Change in Pigmentation, Changing Lesions, Dry Skin, Erythema, Furuncle, Hirsutism, Lesions, New Lesions, Non-Healing Lesions, Photosensitivity, Pruritus, Rash, Skin Pain, Skin Ulcer, Sores, Striae, Swelling , Unusual Bruising, Wounds, Jaundice, Other - Neurological Neurological: As Per HPI. absent: Abnormal Gait, Abnormal Hearing, Abnormal Movements, Abnormal Speech, Behavioral Changes, Burning Sensations, Confusion, Convulsions, Disequilibrium, Dizziness, Numbness, Focal Weakness, Frequent Falls , Headaches, Lack of Coordination, Loss of Vision, Memory Loss, Paresthesias, Radicular Pain, Restless Legs, Sensory Deficit, Syncope, Tingling, Tremor, Vertigo, Weakness, Other Visual Disturbances, Other - Psychiatric Psychiatric: As Per HPI. absent: Abnormal Sleep Pattern, Anhedonia, Anxiety, Auditory Hallucinations, Behavioral Changes, Change in Appetite, Change in Libido, Confusion, Depression, Difficulty Concentrating, Hallucinations, Homicidal Ideation, Hopelessness, Irritability, Memory Loss, Mood Swings, Panic Attacks, Paranoia, Suicidal Ideation, Visual Hallucinations, Tactile Hallucinations, Other - Endocrine Endocrine: As Per HPI. absent: Change in Body Appearance, Change in Libido, Cold Intolorance, Deepening of Voice, Excessive Sweating, Fatigue, Flushing, Heat Intolorance, Increase in Ring/Shoe/Hat Size, Palpitations, Polydipsia, Polyphagia, Polyuria, Other - Hematologic/Lymphatic Hematologic: As Per HPI. absent: Easy Bleeding, Easy Bruising, Lymphadenopathy , Other Past Patient History - Tetanus Immunizations Tetanus Immunization: Unknown - Past Medical History & Family History Past Medical History?: Yes - Past Social History Smoking Status: Former Smoker Chewing Tobacco Use: No Cigar Use: No Alcohol: Occasional Drugs: Denies Home Situation {Lives}: Alone Domestic Violence: Negative - CARDIAC Hx Atrial Fibrillation: Yes Hx Congestive Heart Failure: Yes Hx Hypercholesterolemia: Yes Hx Hypertension: Yes Other/Comment: cabg over 10 yrs ago - PULMONARY Hx Chronic Obstructive Pulmonary Disease (COPD): Yes - NEUROLOGICAL Hx Dementia: Yes - HEENT Hx HEENT Problems: No - RENAL Hx Chronic Kidney Disease: Yes (renal failure) - ENDOCRINE/METABOLIC Hx Endocrine Disorders: No - HEMATOLOGICAL/ONCOLOGICAL Hx AIDS: No Hx Human Immunodeficiency Virus (HIV): No - INTEGUMENTARY Hx Dermatological Problems: No - MUSCULOSKELETAL/RHEUMATOLOGICAL Hx Arthritis: Yes Hx Falls: No - GASTROINTESTINAL Hx Gastritis: Yes - GENITOURINARY/GYNECOLOGICAL Hx Genitourinary Disorders: No - PSYCHIATRIC Hx Psychophysiologic Disorder: No Hx Substance Use: No - SURGICAL HISTORY Hx Coronary Artery Bypass Graft: Yes (in 2005) - ANESTHESIA Hx Anesthesia: Yes Hx Anesthesia Reactions: No Hx Malignant Hyperthermia: No Meds Allergies/Adverse Reactions: Allergies Allergy/AdvReac Type Severity Reaction Status Date / Time No Known Allergies Allergy Verified 06/08/16 09:31 - Medications Medications: Current Medications Acetaminophen (Tylenol 325mg Tab) 650 mg PO Q6 PRN PRN Reason: Pain, moderate (4-7) Albuterol/Ipratropium (Duoneb 3 Mg/0.5 Mg (3 Ml) Ud) 3 ml INH RQ6 PRN PRN Reason: Shortness of Breath Apixaban (Eliquis) 5 mg PO BID ARNALDO PRN Reason: Protocol Last Admin: 11/24/16 16:23 Dose: 5 mg Aspirin (Aspirin Chewable) 81 mg PO DAILY [facility] Atorvastatin Calcium (Lipitor) 40 mg PO DAILY [facility] Carvedilol (Coreg) 25 mg PO Q12H [facility] Folic Acid (Folic Acid) 1 mg PO DAILY [facility] Furosemide (Lasix) 20 mg PO DAILY [facility] Guaifenesin (Robitussin) 200 mg PO TID PRN PRN Reason: Cough Multivitamins/Minerals (Therapeutic-M Tab) 1 tab PO DAILY [facility] Valsartan (Diovan) 320 mg PO DAILY [facility] Physical Exam - Constitutional Appears: Non-toxic - Head Exam Head Exam: ATRAUMATIC, NORMAL INSPECTION, NORMOCEPHALIC - Eye Exam Eye Exam: EOMI, Normal appearance, PERRL. absent: Conjunctival injection, Nystagmus, Periorbital swelling, Periorbital tenderness, Scleral icterus Pupil Exam: NORMAL ACCOMODATION, PERRL. absent: Fixed, Irregular, Miosis, Mydriatic, Unequal - ENT Exam ENT Exam: Mucous Membranes Moist, Normal Exam. absent: Mucous Membranes Dry, Normal External Ear Exam, Normal Oropharynx, TM's Normal Bilaterally - Neck Exam Neck exam: Positive for: Normal Inspection. Negative for: Full Rom, Lymphadenopathy, Meningismus, Tenderness, Thyromegaly - Respiratory Exam Respiratory Exam: Wheezes. absent: Accessory Muscle Use, Chest Wall Tenderness , Decreased Breath Sounds, Clear to Auscultation Bilateral, Prolonged Expiratory Phase, Rales, Rhonchi, Respiratory Distress, Stridor, NORMAL BREATHING PATTERN - Cardiovascular Exam Cardiovascular Exam: Irregular Rhythm, +S1, +S2, Systolic Murmur. absent: Bradycardia, Tachycardia, Clicks, Diastolic murmur, Gallop, REGULAR RHYTHM, JVD , RRR, Rubs, +S4 - GI/Abdominal Exam GI & Abdominal Exam: Normal Bowel Sounds, Soft. absent: Bruit, Diminished Bowel Sounds, Distended, Firm, Guarding, Hernia, Hyperactive Bowel Sounds, Hypoactive Bowel Sounds, Mass, Organomegaly, Pulsatile Mass, Rebound, Rigid, Tenderness - Rectal Exam Rectal Exam: Deferred - Extremities Exam Extremities exam: Positive for: pedal edema, pedal pulses present. Negative for : calf tenderness, full ROM, joint swelling, normal capillary refill, normal inspection, tenderness - Back Exam Back exam: NORMAL INSPECTION. absent: CVA tenderness (L), CVA tenderness (R), FULL ROM, muscle spasm, paraspinal tenderness, rash noted, tenderness, vertebral tenderness - Neurological Exam Neurological exam: Alert, CN II-XII Intact, Normal Gait, Oriented x3, Reflexes Normal - Psychiatric Exam Psychiatric exam: Normal Affect, Normal Mood - Skin Skin Exam: Dry, Intact, Normal Color, Warm Results - Vital Signs Recent Vital Signs: Last Vital Signs Temp 98.2 F 11/24/16 16:20 Pulse 70 11/24/16 16:20 Resp 26 H 11/24/16 16:20 BP 160/84 H 11/24/16 16:20 Pulse Ox 98 11/24/16 16:20 - Labs Result Diagrams: 11/24/16 06:06 11/24/16 06:06 Labs: Laboratory Results - last 24 hr 11/24/16 14:11 Troponin I < 0.0120 Assessment & Plan (1) S/P CABG x 3 Status: Acute (2) Noncompliance w/medication treatment due to intermit use of medication Status: Acute (3) COPD (chronic obstructive pulmonary disease) Status: Acute (4) Wheezing Status: Acute (5) Acute chest pain Status: Acute (6) Atrial fibrillation with controlled ventricular response Status: Acute (7) Dizziness Status: Acute (8) CAD (coronary artery disease) Status: Chronic - Assessment and Plan (Free Text) Plan: PT SHOULD HAVE LEXISCAN ST TOMORROW. NPO P MN. PT HAS MILD R BASE WHEEZE, WHICH APPEARS CHRONIC AND SECONDARY TO COPD AND ATTELECTASIS. PT CURRENTLY CP FREE. AFIB IS RATE CONTROLLED. RELEVANT PRIOR TESTING REVIEWED. EKG PENDING. CONTINUE CURRENT MEDS. NOTE: DR GONZALEZ IS PTS [employer] HELPER. I WAS ASKED TO SEE PT BY PCP AND DR GONZALEZ (WHO IS AWARE). 55 MIN TOTAL CARE TIME.
[2016-11-25] MEDS: Albuterol-Ipratrop 3 mg / 0.5 (3 ml) UD INH SCH ×5 (04:42→23:58)
--- NOTE | 2016-11-25 08:47 | CARD ---
APPROVED REPORT EKG Measurement Heart [id number] <Conclusion> Atrial fibrillation Abnormal ECG
[2016-11-25] MEDS ORDERED: Aminophylline 25 mg/ml Inj ONE (09:26)
[2016-11-25] MEDS: Multivitamin With Minerals Tab PO SCH (10:39)
--- NOTE | 2016-11-25 11:07 | HP ---
CHIEF COMPLAINT: Chest pain. The patient was seen and examined yesterday in the emergency room. HISTORY OF PRESENT ILLNESS: This is a 76-year-old male known case of hypertension, coronary artery disease, COPD, atrial fibrillation, arthritis, obesity with history of CVA in the past, and dyspepsia, who was in the [facility]. The patient started having chest pain, was taking 12 or 13 doses of nitroglycerin. The patient was sent to the emergency room and was admitted for further management. REVIEW OF SYSTEMS: At the time of exam yesterday was negative for headache, dizziness, syncope, loss of consciousness, chest pain, shortness of breath, nausea, vomiting, diarrhea, constipation, or any new joint or extremity pain. Review of systems of all other organ systems was unremarkable. PAST MEDICAL HISTORY: As mentioned earlier is significant for hypertension, coronary artery disease, atrial fibrillation, COPD, renal insufficiency, elevated cholesterol, gastritis, and diabetes. PAST SURGICAL HISTORY: Unremarkable except for the patient had CABG about 10 to 11 years ago. PERSONAL HISTORY: The patient is smoker, nonalcoholic. No substance abuse. MEDICATIONS: The patient is on multiple medications including Eliquis, folic acid, multivitamin, Coreg, DuoNeb, aspirin, Lipitor, Tylenol, valsartan, and Lasix. ALLERGIES: THE PATIENT IS NOT ALLERGIC TO ANY MEDICATIONS. FAMILY HISTORY: Noncontributory. PHYSICAL EXAMINATION: GENERAL: The patient was well-built, well-nourished, overweight male in no acute distress. VITAL SIGNS: Temperature 98.6, pulse 70, respirations 16, and blood pressure 120/69. HEENT: The patient is wearing glasses. No nystagmus. Normocephalic and atraumatic skull. NECK: No JVD. No thyromegaly. No lymphadenopathy. HEART: S1 and S2 normal and regular. No significant murmur, gallop, or rub is heard. LUNGS: Shows good bilateral air entry. No rales or rhonchi. ABDOMEN: Soft and nontender. No organomegaly. No fluid. Bowel sounds are plus.. EXTREMITIES: No edema. No calf swelling. No tenderness. No acute ischemia. CENTRAL NERVOUS SYSTEM: The patient is alert, awake, and oriented x3. There is no sign of any acute gross focal motor or sensory neurological deficit. DIAGNOSTIC DATA: Available diagnostic data was reviewed. Telemetry monitoring did not reveal any significant arrhythmia. WBC 9.5,hemoglobin 11.7, hematocrit 35.9, and platelets 279. Sodium 140, potassium 4.6, chloride 103, bicarb 25, BUN 29, and creatinine 1.5 SMA-12 is unremarkable. Troponin first set is negative. His chest x-ray did not reveal any acute infiltrate. EKG shows atrial fibrillation without any new acute ST-T changes. ADMITTING IMPRESSION: Chest pain, acute coronary syndrome, coronary artery disease, hypertension, type 2 diabetes with hyperglycemia, chronic obstructive pulmonary disease, renal insufficiency, elevated cholesterol, and obesity. PLAN: As ordered. Case and plan were discussed with the patient. Joel Caruso MD
--- NOTE | 2016-11-25 17:56 | CARD ---
APPROVED REPORT Protocol: LEXISCAN Test Type: Stress Nuclear Medications: Apixaban 5mg, Folic Acid 1mg, Multimineral 1 tab, Carvedilol 25mg, , Albuterol ASA 81mg, Atorvastatin 40mg, Robitusssin 200mg Valsartan 320mg, Furosemide 20mg Medical History: Afib, Hyperlipidemia, COPD, Arthritis, CAD, CHF, CVA (mild), Chronic Kidney Disease, CABG 2005, Ex smoker 12 months ago quit. Ex drinker Target HR: 145 bpm Resting ECG: atrial fibrillation Resting Heart Rate: 75 bpm Resting Blood Pressure: 134/85mmHg submaximum (85%): 123 bpm TEST SUMMARY PREINJECTPRE-[id number]/[id number]. [id number]. INJECTIONNS FLUSH00:[id number]/[id number]. INJECTIONNUC MED00:[id number]/[id number]. [id number]/69.0. PROCEDURE Pharmacologic stress testing was performed using 0.4mg per 5ml of regadenoson given intravenously over 7-10 seconds. POST EXERCISE Reason for Termination: Pharmacologic Stress Test Target HR: No Max HR: 83 bpm 59% of Maximum Predicted HR: 145 bpm Exercise duration: 01:00 min:sec, 0 Stage Exercise capacity: 1.0METs Max Blood Pressure: 149/79mmHg Blood Pressure response to exercise: NA Heart Rate response to exercise: NA Chest Pain: No, none Angina index: 0 Arrhythmia: Yes, atrial fibrillation ST Change: No, none Deviation: 0 mm Clinical Indications Under Appropriate Use Criteria This 76-year-old man with a history of hypertension and dyslipidemia who had undergone coronary bypass graft surgery number of years back underwent this study to rule out evidence of potentially ischemic myocardium. The patient had reported atypical chest pain and an acute myocardial infarction was ruled out. The patient had chronic atrial fibrillation. His resting electric cardiogram showed atrial fibrillation at moderate heart rates with nonspecific ST-T changes. There were no Q waves on the electric cardiogram. His resting blood pressure was 139/83 mmHg. His cardiac auscultation was unremarkable. Stress EKG Interpretation The patient underwent a myocardial scan 45 minutes after an initial dose of N millicuries of sestamibi was given intravenously. An hour and a half from the initial administration of sestamibi, the patient underwent an intravenous infusion of 0.4 mg of Lexiscan over 10 seconds followed immediately by 30 mCi of sestamibi given intravenously. The patient tolerated Lexiscan infusion with minimal shortness of breath which promptly resolved in 3-4 minutes. There was no chest pain and the electric cardiogram did not show any ischemic changes. The patient left the stress lab symptom free and hemodynamically stable. 45 minutes later he underwent a second myocardial scan. The 2 sets of images for process. Gating was difficult because of atrial fibrillation. Tomographic images were examined. EXAM: Myocardial Perfusion REST/STRESS Image QualityGood Imaging Protocol The imaging protocol used to acquire images was Rest Tc-99m/stress Tc-99m 1 day Rest Spect myocardial perfusion imaging was performed in supine position 40 minutes following the injection of 10 mCi of Tc-99 Myoview. Time of rest injection: 7:57 Time of rest imagin:44 At peak stress, the patient was injected intravenously with 30mCi of Tc-99 tetrofosmin after an infusion time of minutes and seconds. Time of stress injection: 10:09 Time of stress imagin:10 Gated Stress Spect was performed 60 minutes after intravenous Tc-99 Myoview injection. The images were gated to evaluate regional wall motion and calculate ventricular ejection fraction. LV Perfusion The post Lexiscan images had significant motion artifact superimposed on them. Otherwise, both the resting as well as post Lexiscan images demonstrated normal regional sestamibi uptake. Wall Motion Gating was difficult because of atrial fibrillation. The left ventricle appeared to contract normally. Left ventricular ejection fraction could not be calculated. CONCLUSION 1. The images had significant motion artifact superimposed on them. But otherwise no evidence of potentially ischemic myocardium was detected. His resting left ventricular systolic function appeared to be preserved. Because of presence of atrial fibrillation gating was not possible and a precise ejection fraction could not be calculated.
[2016-11-26] MEDS: Albuterol-Ipratrop 3 mg / 0.5 (3 ml) UD INH SCH ×2 (07:42→11:19)
--- NOTE | 2016-11-26 08:24 | PN ---
DATE: 11/25/2016 SUBJECTIVE: The patient is seen and examined. Interim events noted. Consults noted and appreciated. Cardiology followup and intervention noted and appreciated. The patient remains in Progressive Care Unit, on telemetry monitoring. Physically . The patient is sleepy and arousable . Patient denies any specific complaints. No chest pain. No shortness of breath. PHYSICAL EXAMINATION: GENERAL: The patient is in no acute distress. VITAL SIGNS: Stable. Blood pressure is . HEART: S1 and S2, normal and regular. LUNGS: Good bilateral air exchange. ABDOMEN: Soft and nontender. EXTREMITIES: No edema. No calf swelling. No tenderness. No acute ischemia. CENTRAL NERVOUS SYSTEM: Essentially unchanged. DIAGNOSTIC DATA: Available diagnostic data reviewed. Troponin, 3 sets are negative. ASSESSMENT: Acute myocardial infarction, rule out. The patient is scheduled for chest x-ray. PLAN: As ordered. Case and plan discussed with the patient. Joel Caruso MD
[2016-11-26] MEDS: Multivitamin With Minerals Tab PO SCH (10:29)
--- NOTE | 2016-11-26 10:30 | CARD ---
APPROVED REPORT EKG Measurement Heart [id number] <Conclusion> Atrial fibrillation Nonspecific T wave abnormality Abnormal ECG
--- NOTE | 2016-11-26 11:31 | PN ---
SUBJECTIVE: The patient is seen and examined. Interim events noted. Consults noted and appreciated. The patient had a stress test yesterday and was negative for ischemia. The patient feels okay. Denies any chest pain or shortness of breath. PHYSICAL EXAMINATION GENERAL: The patient is in no acute distress. VITAL SIGNS: Stable. HEART: S1, S2, normal and regular. LUNGS: Good bilateral air entry. ABDOMEN: Soft, nontender. No organomegaly. No fluid. Bowel sounds are present. EXTREMITIES: No edema. No calf swelling. No tenderness. No acute ischemia. CENTRAL NERVOUS SYSTEM: Essentially unchanged. DIAGNOSTIC DATA: Available diagnostic data reviewed. As mentioned earlier, stress test was negative. ASSESSMENT: Overall, the patient is medically stable. PLAN: As ordered. Joel Caruso MD
[2016-11-26 12:19] VITALS: BP 117/60; PULSE 66; RESP 18; TEMP 98; O2SAT 96
[2016-11-26] MEDS ORDERED: Influenza Vaccine(65YR UP)/PF 180 MCG/0.5 ML SYRINGE IM ONE (12:33)
--- NOTE | 2016-11-26 14:06 | PQF GENQUE ---
Dr. Caruso, Please specify the type and acuity of heart failure in your progress notes: versus No CHF: history only and not chronic etc. OR:Other explanation of clinical finding If ruled in : TYPE: Combined systolic and diastolic Diastolic Systolic Other (please specify) Clinically unable to determine Unknown 2. ACUITY: Acute Chronic Acute on chronic Other (please specify) Clinically unable to determine Unknown ER MD note and Cardiology consult: hx. of CHF H and P: ADMITTING IMPRESSION: Chest pain, acute coronary syndrome, coronary artery disease, hypertension, type 2 diabetes with hyperglycemia, chronic obstructive pulmonary disease, renal insufficiency, elevated cholesterol, and obesity. Cardiology consult:Impression: 1.S/P CABG x 3 Status: Acute (2) Noncompliance w/medication treatment due to intermit use of medication Status: Acute (3) COPD (chronic obstructive pulmonary disease) Status: Acute (4) Wheezing Status: Acute (5) Acute chest pain : Acute (6) Atrial fibrillation with controlled ventricular response Status: Acute (7) Dizziness Status: Acute (8 ) CAD (coronary artery disease) Status: Chronic 11/25 Progress note attending : Acute [place] is ruled out monitored in telemetry, lasix and coreg: Oral This form is a permanent part of the medical record Clarification of your documentation is requested to better reflect the severity of illness and intensity of treatment of your patient. Indicators present [] Specify: [] [] Specify: [] [] Specify: [] [] Specify: [] Location in the medical record that reflects the above clinical findings: [] Treatment Provided: [] PHYSICIAN'S RESPONSE Based on your medical judgment of the clinical indicators outlined above please clarify the following: [] Practitioner response [] If unable to determine, please check the box, sign and date. Present On Admission (POA) Indicator: [] Present at the time of admission [] Not present at the time of admission [] Clinically Undetermined In responding to this query, please exercise your independent professional judgment. The fact that a question is asked does not imply that any particular answer is desired or expected. Thank you for your clarification on this documentation. If you have any questions please call. * Thank you, Celestina Whaley RN BSN ext. #[phone]: Courtney YANG
--- NOTE | 2016-11-26 14:29 | PQF GENQUE ---
Dr. Caruso, Please specify type of COPD: Exacerbation of COPD Stable COPD Other COPD (please specify) Clinically unable to determine Unknown Cardiology consult: Diagnoses include: COPD and Wheezing ; PT HAS MILD R BASE WHEEZE, WHICH APPEARS CHRONIC AND SECONDARY TO COPD AND ATTELECTASIS. nebs:Q 6->Q4 hrs., prednisone PO daily, incentive spirometry This form is a permanent part of the medical record Clarification of your documentation is requested to better reflect the severity of illness and intensity of treatment of your patient. Indicators present [] Specify: [] [] Specify: [] [] Specify: [] [] Specify: [] Location in the medical record that reflects the above clinical findings: [] Treatment Provided: [] PHYSICIAN'S RESPONSE Based on your medical judgment of the clinical indicators outlined above please clarify the following: [] Practitioner response [] If unable to determine, please check the box, sign and date. Present On Admission (POA) Indicator: [] Present at the time of admission [] Not present at the time of admission [] Clinically Undetermined In responding to this query, please exercise your independent professional judgment. The fact that a question is asked does not imply that any particular answer is desired or expected. Thank you for your clarification on this documentation. If you have any questions please call. * Thank you, Celestina Whaley RN BSN ext. #[phone]: Courtney YANG
--- NOTE | 2016-11-26 14:38 | PQF GENQUE ---
Dr. Caruso, Please clarify the type of atrial fibrillation: >> Chronic >> Paroxysmal >> Permanent >> Persistent >> Other (please specify type) >> Clinically unable to determine >> Unknown Cardiology consult; Atrial fibrillation with controlled ventricular response Status: Acute Eliquis BID This form is a permanent part of the medical record Clarification of your documentation is requested to better reflect the severity of illness and intensity of treatment of your patient. Indicators present [] Specify: [] [] Specify: [] [] Specify: [] [] Specify: [] Location in the medical record that reflects the above clinical findings: [] Treatment Provided: [] PHYSICIAN'S RESPONSE Based on your medical judgment of the clinical indicators outlined above please clarify the following: [] Practitioner response [] If unable to determine, please check the box, sign and date. Present On Admission (POA) Indicator: [] Present at the time of admission [] Not present at the time of admission [] Clinically Undetermined In responding to this query, please exercise your independent professional judgment. The fact that a question is asked does not imply that any particular answer is desired or expected. Thank you for your clarification on this documentation. If you have any questions please call. * Thank you, Celestina Whaley RN BSN ext. #[phone]:Courtney YANG
--- NOTE | 2016-11-26 14:46 | PQF GENQUE ---
Dr. Caruso, CKD versus Renal Insufficiency Please clarify the stage of the chronic kidney disease: if ruled in Stage 1 Stage 2 (mild) Stage 3 (moderate) Stage 4 (severe) Stage 5 Other (please specify) Clinically unable to determine Unknown ER MD and Cardiology note: hx. CKD H and P: diagnoses include Renal Insufficiency BUN: 29 Creatinine:1.5 Est GFR ( Amer/Non- Af Amer): 55/46 Lasix 20 mg OD This form is a permanent part of the medical record Clarification of your documentation is requested to better reflect the severity of illness and intensity of treatment of your patient. Indicators present [] Specify: [] [] Specify: [] [] Specify: [] [] Specify: [] Location in the medical record that reflects the above clinical findings: [] Treatment Provided: [] PHYSICIAN'S RESPONSE Based on your medical judgment of the clinical indicators outlined above please clarify the following: [] Practitioner response [] If unable to determine, please check the box, sign and date. Present On Admission (POA) Indicator: [] Present at the time of admission [] Not present at the time of admission [] Clinically Undetermined In responding to this query, please exercise your independent professional judgment. The fact that a question is asked does not imply that any particular answer is desired or expected. Thank you for your clarification on this documentation. If you have any questions please call. * Thank you, Celestina Whaley RN BSN ext. #[phone]: Courtney YANG
== END 2016-11-26 14:12 | DRG 192 ==
LOC: H.ER 04:50 → EDLOC 08:05 → H.ERHOLD 08:05 → H.ICU/CCU 09:39 → OBSVTOIN 11-25 15:37 → H.TEL 11-25 18:43
PROVIDERS: ADMIT Internal Medicine; ATTEND Internal Medicine
DX: J44.1 Chronic obstructive pulmonary disease with (acute) exacerbation (principal); E11.65 Type 2 diabetes mellitus with hyperglycemia; F03.90 Unspecified dementia, unspecified severity, without behavioral disturbance, psychotic disturbance, mood disturbance, and anxiety; I11.0 Hypertensive heart disease with heart failure; I50.9 Heart failure, unspecified; E66.9 Obesity, unspecified; Z68.30 Body mass index [BMI] 30.0-30.9, adult; E78.00 Pure hypercholesterolemia, unspecified; E78.5 Hyperlipidemia, unspecified; I25.10 Atherosclerotic heart disease of native coronary artery without angina pectoris; Z95.1 Presence of aortocoronary bypass graft; N28.9 Disorder of kidney and ureter, unspecified; I48.2 Chronic atrial fibrillation; Z86.73 Personal history of transient ischemic attack (TIA), and cerebral infarction without residual deficits; Z91.14 Patient's other noncompliance with medication regimen; K29.70 Gastritis, unspecified, without bleeding; D64.9 Anemia, unspecified

== ENCOUNTER 2017-01-22 12:12 | Inpatient (IN) | payer MEDICARE, BC ==
[2017-01-22 12:12] VITALS: BMI 32.4
[2017-01-22] MEDS ORDERED: Albuterol 0.083% Inhal Sol (2.5 mg/3 mL) UD INH STA (12:36)
--- NOTE | 2017-01-22 12:48 | ED PDOC ---
HPI: SOB/CHF/COPD Time Seen by Provider: 01/22/17 12:17 Chief Complaint (Nursing): Shortness Of Breath Chief Complaint (Provider): Difficulty Breathing History Per: Patient History/Exam Limitations: other (Dementia) Onset/Duration Of Symptoms: Hrs (This morning) Exacerbating Factor(s): Exertion Associated Symptoms: denies: Fever, Chest Pain Additional Complaint(s): Patient is a 76 y/o male with a history of dementia, who presents to the ED complaining of difficulty breathing since this morning. Patient reports symptoms are more intense at exertion than at rest and notes bilateral leg swelling, which he claims he has always had it. Patient claims he is not currently on any medications because he is not sure of his medical problems, and denies any fever, cough, or chest pain. He claims he does not have a primary care physician, but that he sees supervisor facepiece line Gerardo Kincaid. PCP: Gerardo Kincaid PCP Joel Caruso Past Medical History Reviewed: Historical Data, Nursing Documentation, Vital Signs Vital Signs: Last Vital Signs Temp 97.1 F L 01/24/17 12:26 Pulse 52 L 01/24/17 12:26 Resp 18 01/24/17 12:26 BP 134/68 01/24/17 12:26 Pulse Ox 97 01/24/17 12:26 - Medical History PMH: Arthritis, Atrial Fibrillation, CAD, CHF, COPD, CVA (mild), Dementia, Diabetes (type II), Gastritis, HTN, Hypercholesterolemia, Chronic Kidney Disease (renal failure) Denies: HIV Other PMH: Coronary artery disease, alcohol abuse - Surgical History Surgical History: CABG (in 2005) - Family History Family History: States: Unknown Family Hx, CAD, Diabetes (father) - Social History Current smoker - smoking cessation education provided: No Ex-Smoker (has not smoked in the last 12 months): Yes Alcohol: Occasional Drugs: Denies - Immunization History Hx Tetanus Toxoid Vaccination: No Hx Influenza Vaccination: Yes Hx Pneumococcal Vaccination: No - Home Medications Home Medications: Ambulatory Orders Medication Instructions Recorded Apixaban [Eliquis] 5 mg PO BID #60 tablet 08/06/16 Folic Acid 1 mg PO DAILY #30 08/06/16 Multimineral/Multivitamin 1 tab PO DAILY #30 tab 08/06/16 [Therapeutic-M Tab] Carvedilol [Coreg] 25 mg PO Q12H 10/18/16 Albuterol/Ipratropium [Duoneb 3 3 ml INH RQ6 10/22/16 mg/0.5 mg (3 ml) UD] Aspirin [Aspirin Chewable] 81 mg PO DAILY 10/22/16 Atorvastatin [Lipitor] 40 mg PO DAILY tab 10/22/16 Valsartan [Diovan] 320 mg PO DAILY tab 11/02/16 Furosemide [Lasix] 20 mg PO DAILY 11/03/16 - Allergies Allergies/Adverse Reactions: Allergies Allergy/AdvReac Type Severity Reaction Status Date / Time amlodipine [From Norvasc] AdvReac NAUSEA Verified 01/22/17 14:18 Review of Systems ROS Statement: Except As Marked, All Systems Reviewed And Found Negative Constitutional: Negative for: Fever Cardiovascular: Negative for: Chest Pain Respiratory: Positive for: Shortness of Breath, SOB with Exertion. Negative for : Cough Musculoskeletal: Positive for: Other (bilateral leg swelling) Physical Exam - Reviewed Nursing Documentation Reviewed: Yes Vital Signs Reviewed: Yes - Physical Exam Appears: Positive for: No Acute Distress. Negative for: Well Head Exam: Positive for: ATRAUMATIC, NORMOCEPHALIC Skin: Positive for: Normal Color, Warm, Dry Eye Exam: Positive for: Normal appearance, EOMI, PERRL Neck: Positive for: Normal, Painless ROM, Supple Cardiovascular/Chest: Positive for: Irregularly Irregular. Negative for: Murmur Respiratory: Positive for: Rhonchi (bilaterally), Wheezing (Bilterally). Negative for: Normal Breath Sounds, Respiratory Distress Gastrointestinal/Abdominal: Positive for: Normal Exam, Soft. Negative for: Tenderness Back: Positive for: Normal Inspection. Negative for: L CVA Tenderness, R CVA Tenderness, Vertebral Tenderness Extremity: Positive for: Normal ROM, Pedal Edema (bilateral pitting edema lower legs) Neurologic/Psych: Positive for: Alert, Oriented (x3). Negative for: Motor/ Sensory Deficits - Laboratory Results Result Diagrams: 01/24/17 05:00 01/24/17 05:00 - ECG ECG Rhythm: Positive for: Normal QRS, Normal ST Segment, Atrial Fibrillation ( slow ventricular response) Rate: 64 O2 Sat by Pulse Oximetry: 98 (RA) Pulse Ox Interpretation: Normal Medical Decision Making Medical Decision Makin:35 Initial Impression: Dyspnea Differential: CHF exacerbation, COPD exacerbation, rule out ACS Initial Plan: --EKG --B-Type Natriuretic Peptide --Basic Metabolic Panel --Troponin I --CBC --PTT --Prothrombin Time --Chest X-Ray --Albuterol 0.083% 2.5 mg INH --Nitroglycerin 0.4 mg SL --Peak flow pre/post treatment 13:14 Chest X-Ray results FINDINGS: LUNGS: No focal consolidation. Central pulmonary vasculature is slightly increased with a few scattered peribronchial cuffing changes. Rule out sequela of reactive/inflammatory airway disease or viral illness. Possibility of mild chronic compensated pulmonary edema not excluded. Clinical correlation recommended. PLEURA: No pneumothorax or pleural fluid seen. CARDIOVASCULAR: Sternotomy wires and CABG clips. Cardiomegaly. Calcification aortic knob. OSSEOUS STRUCTURES: Re- demonstrated are multiple old healed right-sided posterolateral rib fracture deformities. VISUALIZED UPPER ABDOMEN: Normal. OTHER FINDINGS: None. IMPRESSION: No acute consolidation.Central pulmonary vasculature is slightly increased with a few scattered peribronchial cuffing changes. Rule out sequela of reactive/ inflammatory airway disease or viral illness. Possibility of mild chronic compensated pulmonary edema not excluded. Clinical correlation recommended. Cardiomegaly. Scribe Attestation: Documented by Moiz Ramos, acting as a scribe for Heraclio Araujo MD Provider Scribe Attestation: All medical record entries made by the Scribe were at my direction and personally dictated by me. I have reviewed the chart and agree that the record accurately reflects my personal performance of the history, physical exam, medical decision making, and the department course for this patient. I have also personally directed, reviewed, and agree with the discharge instructions and disposition. Disposition - Clinical Impression Clinical Impression: CKD (chronic kidney disease), COPD exacerbation, CHF exacerbation - Patient ED Disposition Is Patient to be Admitted: Yes Discussed With : Joel Caruso Doctor Will See Patient In The: Hospital - Disposition Disposition Time: 14:40 Condition: FAIR - Pt Status Changed To: Hospital Disposition Of: Inpatient - Admit Certification Admit to Inpatient:: After my assessment, the patient will require hospitalization for at least two midnights. This is because of the severity of symptoms shown, intensity of services needed, and/or the medical risk in this patient being treated as an outpatient. - POA Present On Arrival: None
[2017-01-22] MEDS ORDERED: Albuterol 0.083% Inhal Sol (2.5 mg/3 mL) UD ONE (12:49)
--- NOTE | 2017-01-22 13:15 | RAD ---
PROCEDURE: CHEST RADIOGRAPH, 1 VIEW HISTORY: SOB COMPARISON: Comparison chest dated 11/24/2016 FINDINGS: LUNGS: No focal consolidation. Central pulmonary vasculature is slightly increased with a few scattered peribronchial cuffing changes. Rule out sequela of reactive/inflammatory airway disease or viral illness. Possibility of mild chronic compensated pulmonary edema not excluded. Clinical correlation recommended. PLEURA: No pneumothorax or pleural fluid seen. CARDIOVASCULAR: Sternotomy wires and CABG clips. Cardiomegaly. Calcification aortic knob. OSSEOUS STRUCTURES: Re- demonstrated are multiple old healed right-sided posterolateral rib fracture deformities. VISUALIZED UPPER ABDOMEN: Normal. OTHER FINDINGS: None. IMPRESSION: No acute consolidation.Central pulmonary vasculature is slightly increased with a few scattered peribronchial cuffing changes. Rule out sequela of reactive/inflammatory airway disease or viral illness. Possibility of mild chronic compensated pulmonary edema not excluded. Clinical correlation recommended. Cardiomegaly.
[2017-01-22 13:22] LABS: BLOOD UREA NITROGEN 35 mg/dl (9-20); CALCIUM 8.7 mg/dL (8.4-10.2); CARBON DIOXIDE 25 mmol/L (22-30); CHLORIDE 107 mmol/L (98-107); GFR AFRICAN-AMERICAN 60; GLUCOSE,RANDOM 93 mg/dL (75-110); SODIUM 142 mmol/l (132-148)
[2017-01-22 13:25] LABS: BASO # 0.1 K/uL (0.0-0.2); BASO % 1.2 % (0.0-2.0); EOS # 0.5 K/uL (0.0-0.7); EOS % 7.4 % (0.0-4.0); HEMATOCRIT 33.7 % (35.0-51.0); LYMPH # 1.4 K/uL (1.0-4.3); LYMPH % 20.1 % (20.0-40.0); MEAN CELL VOLUME 91.6 fl (80.0-94.0); MEAN CORPUSCULAR HEMOGLOBIN 31.1 pg (27.0-31.0); MEAN PLATELET VOLUME 9.1 fl (7.2-11.7); MONO # 0.9 K/uL (0.0-0.8); MONO % 14.1 % (0.0-10.0); NEUT # 3.8 K/uL (1.8-7.0); NEUT % 57.2 % (50.0-75.0); NRBC % 0.1 % (0.0-0.0); RED CELL DISTRIBUTION WIDTH 13.8 % (11.5-14.5); WHITE BLOOD COUNT 6.7 K/uL (4.8-10.8)
[2017-01-22 13:31] LABS: PARTIAL THROMBOPLASTIN TIME 37.9 Seconds (25.6-37.1)
[2017-01-22 13:46] LABS: POTASSIUM 5.7 MMOL/L (3.6-5.0)
[2017-01-22] MEDS ORDERED: Albuterol-Ipratrop 3 mg / 0.5 (3 ml) UD INH STA (13:55)
[2017-01-22] MEDS ORDERED: Albuterol-Ipratrop 3 mg / 0.5 (3 ml) UD ONE (14:01)
[2017-01-22] MEDS ORDERED: Sod Polystyrene Sulf 15 gm/60 ml Susp PO ONE (16:15)
--- NOTE | 2017-01-22 17:27 | CP.PCM.CON ---
History of Present Illness - History of Present Illness History of Present Illness: Pulmonary consult for a 76 y/o M, Hx of COPD, CHF, brought by EMS to [facility] for moderate SOB, onset AM DOA with no relief. Pt had increased SOB today no associated to cough, but wheezing, OLEA Worsening symptoms: Difficulty breathing, SOB at rest, EKG showing A Fib(which also is chronic), Hx of CABG. Aggravated factor: Non in compliance with medications. Hx of heavy smoker ( 3 PPD, quit 30 trs ago). Pt denied: Fever, chills, n/v/d, abdominal pain, urinary symptoms, CP, palpitations, cough, sick contact, recent travel. Pt was discharged from Rehab unit at [facility] a week ago apparently admitted for COPD Exacerbation, discharged with Duoneb Nebulizer Tx , also was treated for some cardiac condition. Also he stated of been having Acute Bronchitis for 2-3 yrs ago but never like this time. Family noticed today with markedly SOB that prompting to a ED visit. CXR shows: No acute consolidations, Possibility of mild chronic compensated pulmonary edema not excluded. Review of Systems - Constitutional Constitutional: Other (negative) - EENT Eyes: Requires Corrective Lenses Ears: Other (negative) Nose/Mouth/Throat: Other (negative) - Cardiovascular Cardiovascular: Irregular Heart Rhythm, Orthopnea, Pedal Edema - Respiratory Respiratory: Dyspnea, Dyspnea on Exertion, Wheezing - Gastrointestinal Gastrointestinal: Other (negative) - Genitourinary Genitourinary: Other (negative) - Musculoskeletal Musculoskeletal: Arthralgias - Integumentary Integumentary: Other (negative) - Neurological Neurological: Other (negative) - Psychiatric Psychiatric: Other (negative) - Endocrine Endocrine: Other (negative) - Hematologic/Lymphatic Hematologic: Other (negative) Past Patient History - Tetanus Immunizations Tetanus Immunization: Unknown - Past Medical History & Family History Past Medical History?: Yes Pertinent Family History: Father DM, CAD. - Past Social History Smoking Status: Former Smoker (3 PPD, quit 30 yrs ago.) Alcohol: Occasional Drugs: Denies - CARDIAC Hx Cardiac Disorders: Yes Hx Atrial Fibrillation: Yes Hx Congestive Heart Failure: Yes Hx Hypercholesterolemia: Yes Hx Hypertension: Yes - PULMONARY Hx Respiratory Disorders: Yes Hx Bronchitis: Yes Hx Chronic Obstructive Pulmonary Disease (COPD): Yes Hx Pneumonia: Yes - NEUROLOGICAL Hx Neurological Disorder: Yes Hx Dementia: Yes - HEENT Hx HEENT Problems: Yes (Wear eyeglasses.) - RENAL Hx Chronic Kidney Disease: Yes (renal failure) - ENDOCRINE/METABOLIC Hx Endocrine Disorders: Yes Hx Diabetes Mellitus Type 2: Yes - HEMATOLOGICAL/ONCOLOGICAL Hx Blood Disorders: No Hx Human Immunodeficiency Virus (HIV): No - INTEGUMENTARY Hx Dermatological Problems: No - MUSCULOSKELETAL/RHEUMATOLOGICAL Hx Musculoskeletal Disorders: Yes Hx Arthritis: Yes - GASTROINTESTINAL Hx Gastrointestinal Disorders: Yes Hx Gastritis: Yes - GENITOURINARY/GYNECOLOGICAL Hx Genitourinary Disorders: No - PSYCHIATRIC Hx Psychophysiologic Disorder: No Hx Substance Use: No - SURGICAL HISTORY Hx Surgeries: Yes Hx Coronary Artery Bypass Graft: Yes (in 2005) - ANESTHESIA Hx Anesthesia: Yes Hx Anesthesia Reactions: No Hx Malignant Hyperthermia: No Meds Allergies/Adverse Reactions: Allergies Allergy/AdvReac Type Severity Reaction Status Date / Time amlodipine [From [facility]] AdvReac NAUSEA Verified 01/22/17 14:18 - Medications Medications: Current Medications Albuterol/Ipratropium (Duoneb 3 Mg/0.5 Mg (3 Ml) Ud) 3 ml INH RQ6 [facility] Apixaban (Eliquis) 5 mg PO BID [facility] PRN Reason: Protocol Last Admin: 01/22/17 16:52 Dose: 5 mg Aspirin (Aspirin Chewable) 81 mg PO DAILY [facility] Atorvastatin Calcium (Lipitor) 40 mg PO DAILY [facility] Carvedilol (Coreg) 25 mg PO Q12H [facility] Last Admin: 01/22/17 16:51 Dose: 25 mg Folic Acid (Folic Acid) 1 mg PO DAILY [facility] Furosemide (Lasix) 40 mg IV BID [facility] Methylprednisolone 40 mg/ (Sodium Chloride) 50 mls @ 100 mls/hr IVPB Q8 [facility] Multivitamins/Minerals (Therapeutic-M Tab) 1 tab PO DAILY [facility] Valsartan (Diovan) 320 mg PO DAILY [facility] Last Admin: 01/22/17 16:52 Dose: 320 mg Physical Exam - Constitutional Appears: No Acute Distress, Chronically Ill - Head Exam Head Exam: NORMAL INSPECTION - Eye Exam Eye Exam: PERRL - ENT Exam ENT Exam: Normal Exam - Neck Exam Neck exam: Positive for: Normal Inspection - Respiratory Exam Respiratory Exam: Decreased Breath Sounds (b/l), Rhonchi (scattered b/l), Wheezes (b/l) - Cardiovascular Exam Cardiovascular Exam: Irregular Rhythm Additional comments: Sternotomy scar - GI/Abdominal Exam GI & Abdominal Exam: Normal Bowel Sounds, Soft - Extremities Exam Extremities exam: Positive for: pedal edema - Back Exam Back exam: NORMAL INSPECTION - Neurological Exam Neurological exam: Alert, Oriented x3 Additional comments: No motor sensory deficit. - Psychiatric Exam Psychiatric exam: Normal Mood - Skin Skin Exam: Warm Results - Vital Signs Recent Vital Signs: Last Vital Signs Temp 98.1 F 01/22/17 16:15 Pulse 70 01/22/17 16:51 Resp 20 01/22/17 16:15 BP 162/95 H 01/22/17 16:51 Pulse Ox 93 L 01/22/17 16:15 reviewed J.P. - Labs Result Diagrams: 01/22/17 12:50 01/22/17 12:50 Labs: Laboratory Results - last 24 hr 01/22/17 01/22/17 01/22/17 12:50 12:50 12:50 WBC 6.7 RBC 3.68 L Hgb 11.5 L Hct 33.7 L MCV 91.6 MCH 31.1 H MCHC 34.0 RDW 13.8 Plt Count 192 MPV 9.1 Neut % (Auto) 57.2 Lymph % (Auto) 20.1 [place] % (Auto) 14.1 H Eos % (Auto) 7.4 H Baso % (Auto) 1.2 Neut # 3.8 Lymph # 1.4 [place] # 0.9 H Eos # 0.5 Baso # 0.1 PT 12.7 INR 1.1 APTT 37.9 H Sodium 142 Potassium 5.7 H Chloride 107 Carbon Dioxide 25 Anion Gap 16 BUN 35 H Creatinine 1.4 Est GFR ( Amer) 60 Est GFR (Non-Af Amer) 49 Random Glucose 93 Calcium 8.7 Troponin I < 0.0120 NT-Pro-B Natriuret Pep 1730 H reviewed J.P. - EKG Data EKG comments: reviewed J.P. - Imaging and Cardiology Chest x-ray Status: Report reviewed by me (Bertha) Assessment & Plan (1) COPD exacerbation Status: Acute Priority: High (2) CHF (congestive heart failure) Status: Acute Priority: High (3) Atrial fibrillation Status: Chronic Priority: High (4) Hx of CABG Status: Chronic - Assessment and Plan (Free Text) Plan: CT Chest, Solumedrol, Duoneb, ABG room air. - Date & Time Date: 01/22/17 Time: 17:00
--- NOTE | 2017-01-22 17:32 | CARD ---
APPROVED REPORT EKG Measurement Heart [id number] <Conclusion> Atrial fibrillation Abnormal ECG
[2017-01-22 17:42] LABS: ABG ALLEN TEST YES; ARTERIAL BLOOD GAS HCO3 23.5 mmol/L (21-28); ARTERIAL BLOOD GAS O2 CAPACITY 18.5 mL/dL (16-24); ARTERIAL BLOOD GAS O2 CONTENT 17.9 ML/dL (15-23); ARTERIAL BLOOD GAS PH 7.39 (7.35-7.45); ARTERIAL BLOOD GAS PO2 66 mm/Hg (80-100); CARBOXYHEMOGLOBIN 2.6 % (0.5-1.5); HHB 3.1 % (0.0-5.0); METHEMOGLOBIN 1.3 % (0.0-3.0)
[2017-01-22] MEDS: Albuterol-Ipratrop 3 mg / 0.5 (3 ml) UD INH SCH (19:10)
[2017-01-23] MEDS: Albuterol-Ipratrop 3 mg / 0.5 (3 ml) UD INH SCH ×4 (01:00→19:13)
[2017-01-23] MEDS ORDERED: methylPREDNISolone 40 MG in Sodium Chloride 0.9% 50 ML IVPB SCH (01:00)
[2017-01-23] MEDS: MethylPREDNISolone 40 mg Vial IVP SCH ×3 (01:27→16:18)
[2017-01-23 06:50] LABS: HEMATOCRIT 35.3 % (35.0-51.0); MEAN CELL VOLUME 92.1 fl (80.0-94.0); MEAN CORPUSCULAR HEMOGLOBIN 30.8 pg (27.0-31.0); MEAN CORPUSCULAR HGB CONC 33.4 g/dL (33.0-37.0); RED CELL DISTRIBUTION WIDTH 13.6 % (11.5-14.5); WHITE BLOOD COUNT 7.8 K/uL (4.8-10.8)
[2017-01-23 06:59] LABS: BLOOD UREA NITROGEN 38 mg/dl (9-20); CALCIUM 8.8 mg/dL (8.4-10.2); CARBON DIOXIDE 25 mmol/L (22-30); CHLORIDE 102 mmol/L (98-107); GFR AFRICAN-AMERICAN 60; GLUCOSE,RANDOM 167 mg/dL (75-110); SODIUM 143 mmol/l (132-148)
[2017-01-23] MEDS: Multivitamin With Minerals Tab PO SCH (08:38)
--- NOTE | 2017-01-23 11:00 | CP.PCM.CON ---
History of Present Illness - History of Present Illness History of Present Illness: I was asked to see patient by Dr Caruso. Patient is a 76 year old male with PMH HTN CAD, valvular heart disease tachybrady syndrome who presents with chest pain. The patient states he was at home when he felt s pressure and dyspnea. The patient states symptoms did not exacerbate with exertion. Review of Systems - Constitutional Constitutional: absent: As Per HPI, Anorexia, Chills, Daytime Sleepiness, Excessive Sweating, Fatigue, Fever, Frequent Falls, Headache, Increased Appetite , Lethargy, Malaise, Night Sweats, Snoring, Sleep Apnea, Weight Gain, Weight Loss, Weakness, Other - EENT Eyes: absent: As Per HPI, Blind Spots, Blurred Vision, Change in Vision, Decreased Night Vision, Diplopia, Discharge, Dry Eye, Exophthalmos, Floaters, Irritation, Itchy Eyes, Loss of Peripheral Vision, Pain, Photophobia, Requires Corrective Lenses, Sees Flashes, Spots in Vision, Tunnel Vision, Other Visual Disturbances, Loss of Vision, Other Ears: absent: As Per HPI, Decreased Hearing, Ear Discharge, Ear Pain, Tinnitus, Abnormal Hearing, Disequilibrium, Dizziness, Other Nose/Mouth/Throat: absent: As Per HPI, Epistaxis, Nasal Congestion, Nasal Discharge, Nasal Obstruction, Nasal Trauma, Nose Pain, Post Nasal Drip, Sinus Pain, Sinus Pressure, Bleeding Gums, Change in Voice, Dental Pain, Dry Mouth, Dysphagia, Halitosis, Hoarsness, Lip Swelling, Mouth Lesions, Mouth Pain, Odynophagia, Sore Throat, Throat Swelling, Tongue Swelling, Facial Pain, Neck Pain, Neck Mass, Other - Cardiovascular Cardiovascular: Chest Pain - Respiratory Respiratory: Dyspnea - Gastrointestinal Gastrointestinal: absent: As Per HPI, Abdominal Pain, Belching, Bloating, Change in Bowel Habits, Change in Stool Character, Coffee Ground Emesis, Constipation, Cramping, Diarrhea, Dyspepsia, Dysphagia, Early Satiety, Excessive Flatus, Fecal Incontinence, Heartburn, Hematemesis, Hematochezia, Loose Stools, Melena, Nausea, Odynophagia, Temesmus, Vomiting, Other - Genitourinary Genitourinary: absent: As Per HPI, Change in Urinary Stream, Difficulty Urinating, Dysuria, Flank Pain, Hematuria, Pyuria, Nocturia, Urinary Incontinence, Urinary Frequency, Urinary Hesitance, Urinary Urgency, Voiding Freq/Small Amts, Freq UTI, Hx Renal/Bladder Calculi, Hx /Renal Surgery, Bladder Distension, Other - Musculoskeletal Musculoskeletal: absent: As Per HPI, Abnormal Gait, Arthralgias, Atrophy, Back Pain, Deformity, Joint Swelling, Limited Range of Motion, Loss of Height, Muscle Cramps, Muscle Weakness, Myalgias, Neck Pain, Numbness, Radiating Pain into Limb, Stiffness, Tingling, Other - Integumentary Integumentary: absent: As Per HPI, Acne, Alopecia, Bleeding Lesions, Change in Hair, Change in Nails, Change in Pigmentation, Changing Lesions, Dry Skin, Erythema, Furuncle, Hirsutism, Lesions, New Lesions, Non-Healing Lesions, Photosensitivity, Pruritus, Rash, Skin Pain, Skin Ulcer, Sores, Striae, Swelling , Unusual Bruising, Wounds, Jaundice, Other - Neurological Neurological: absent: As Per HPI, Abnormal Gait, Abnormal Hearing, Abnormal Movements, Abnormal Speech, Behavioral Changes, Burning Sensations, Confusion, Convulsions, Disequilibrium, Dizziness, Numbness, Focal Weakness, Frequent Falls , Headaches, Lack of Coordination, Loss of Vision, Memory Loss, Paresthesias, Radicular Pain, Restless Legs, Sensory Deficit, Syncope, Tingling, Tremor, Vertigo, Weakness, Other Visual Disturbances, Other - Psychiatric Psychiatric: absent: As Per HPI, Abnormal Sleep Pattern, Anhedonia, Anxiety, Auditory Hallucinations, Behavioral Changes, Change in Appetite, Change in Libido, Confusion, Depression, Difficulty Concentrating, Hallucinations, Homicidal Ideation, Hopelessness, Irritability, Memory Loss, Mood Swings, Panic Attacks, Paranoia, Suicidal Ideation, Visual Hallucinations, Tactile Hallucinations, Other - Endocrine Endocrine: absent: As Per HPI, Change in Body Appearance, Change in Libido, Cold Intolorance, Deepening of Voice, Excessive Sweating, Fatigue, Flushing, Heat Intolorance, Increase in Ring/Shoe/Hat Size, Palpitations, Polydipsia, Polyphagia, Polyuria, Other - Hematologic/Lymphatic Hematologic: absent: As Per HPI, Easy Bleeding, Easy Bruising, Lymphadenopathy, Other Past Patient History - Tetanus Immunizations Tetanus Immunization: Unknown - Past Medical History & Family History Past Medical History?: Yes - Past Social History Smoking Status: Former Smoker (3 PPD, quit 30 yrs ago.) Alcohol: Occasional Drugs: Denies - CARDIAC Hx Cardiac Disorders: Yes Hx Atrial Fibrillation: Yes Hx Congestive Heart Failure: Yes Hx Hypercholesterolemia: Yes Hx Hypertension: Yes - PULMONARY Hx Respiratory Disorders: Yes Hx Bronchitis: Yes Hx Chronic Obstructive Pulmonary Disease (COPD): Yes Hx Pneumonia: Yes - NEUROLOGICAL Hx Neurological Disorder: Yes Hx Dementia: Yes - HEENT Hx HEENT Problems: Yes (Wear eyeglasses.) - RENAL Hx Chronic Kidney Disease: Yes (renal failure) - ENDOCRINE/METABOLIC Hx Endocrine Disorders: Yes Hx Diabetes Mellitus Type 2: Yes - HEMATOLOGICAL/ONCOLOGICAL Hx Blood Disorders: No Hx Human Immunodeficiency Virus (HIV): No - INTEGUMENTARY Hx Dermatological Problems: No - MUSCULOSKELETAL/RHEUMATOLOGICAL Hx Musculoskeletal Disorders: Yes Hx Arthritis: Yes - GASTROINTESTINAL Hx Gastrointestinal Disorders: Yes Hx Gastritis: Yes - GENITOURINARY/GYNECOLOGICAL Hx Genitourinary Disorders: No - PSYCHIATRIC Hx Psychophysiologic Disorder: No Hx Substance Use: No - SURGICAL HISTORY Hx Surgeries: Yes Hx Coronary Artery Bypass Graft: Yes (in 2005) - ANESTHESIA Hx Anesthesia: Yes Hx Anesthesia Reactions: No Hx Malignant Hyperthermia: No Meds Allergies/Adverse Reactions: Allergies Allergy/AdvReac Type Severity Reaction Status Date / Time amlodipine [From [facility]] AdvReac NAUSEA Verified 01/22/17 14:18 - Medications Medications: Current Medications Albuterol/Ipratropium (Duoneb 3 Mg/0.5 Mg (3 Ml) Ud) 3 ml INH RQ6 [facility] Last Admin: 01/23/17 07:54 Dose: 3 ml Apixaban (Eliquis) 5 mg PO BID [facility] PRN Reason: Protocol Last Admin: 01/23/17 08:38 Dose: 5 mg Aspirin (Aspirin Chewable) 81 mg PO DAILY [facility] Last Admin: 01/23/17 08:37 Dose: 81 mg Atorvastatin Calcium (Lipitor) 40 mg PO DAILY [facility] Last Admin: 01/23/17 08:38 Dose: 40 mg Carvedilol (Coreg) 25 mg PO Q12H [facility] Last Admin: 01/23/17 04:30 Dose: 25 mg Folic Acid (Folic Acid) 1 mg PO DAILY [facility] Last Admin: 01/23/17 08:38 Dose: 1 mg Furosemide (Lasix) 40 mg IV BID [facility] Last Admin: 01/23/17 08:38 Dose: 40 mg Methylprednisolone (Solu-Medrol) 40 mg IVP Q8 [facility] Last Admin: 01/23/17 10:46 Dose: 40 mg Multivitamins/Minerals (Therapeutic-M Tab) 1 tab PO DAILY [facility] Last Admin: 01/23/17 08:38 Dose: 1 tab Valsartan (Diovan) 320 mg PO DAILY [facility] Last Admin: 01/23/17 08:37 Dose: 320 mg Physical Exam - Constitutional Appears: Non-toxic - Head Exam Head Exam: NORMAL INSPECTION - Eye Exam Eye Exam: Normal appearance - ENT Exam ENT Exam: Mucous Membranes Moist - Neck Exam Neck exam: Positive for: Full Rom - Respiratory Exam Respiratory Exam: Decreased Breath Sounds - Cardiovascular Exam Cardiovascular Exam: Irregular Rhythm - GI/Abdominal Exam GI & Abdominal Exam: Normal Bowel Sounds - Rectal Exam Rectal Exam: Deferred - Extremities Exam Extremities exam: Negative for: pedal edema - Back Exam Back exam: NORMAL INSPECTION - Neurological Exam Neurological exam: Alert, Oriented x3 - Psychiatric Exam Psychiatric exam: Normal Affect - Skin Skin Exam: Normal Color Results - Vital Signs Recent Vital Signs: Last Vital Signs Temp 97.5 F L 01/23/17 08:00 Pulse 72 01/23/17 08:00 Resp 18 01/23/17 08:00 BP 154/81 H 01/23/17 08:38 Pulse Ox 97 01/23/17 08:00 - Labs Result Diagrams: 01/23/17 06:41 01/23/17 06:41 Labs: Laboratory Results - last 24 hr 01/22/17 01/22/17 01/22/17 12:50 12:50 12:50 WBC 6.7 RBC 3.68 L Hgb 11.5 L Hct 33.7 L MCV 91.6 MCH 31.1 H MCHC 34.0 RDW 13.8 Plt Count 192 MPV 9.1 Neut % (Auto) 57.2 Lymph % (Auto) 20.1 [place] % (Auto) 14.1 H Eos % (Auto) 7.4 H Baso % (Auto) 1.2 Neut # 3.8 Lymph # 1.4 [place] # 0.9 H Eos # 0.5 Baso # 0.1 PT 12.7 INR 1.1 APTT 37.9 H pCO2 pO2 HCO3 ABG pH ABG Total CO2 ABG O2 Saturation ABG O2 Content ABG Base Excess ABG Hemoglobin ABG Carboxyhemoglobin POC ABG HHb (Measured) ABG Methemoglobin ABG O2 Capacity Russell Test A-a O2 Difference Hgb O2 Saturation FiO2 Sodium 142 Potassium 5.7 H Chloride 107 Carbon Dioxide 25 Anion Gap 16 BUN 35 H Creatinine 1.4 Est GFR ( Amer) 60 Est GFR (Non-Af Amer) 49 Random Glucose 93 Calcium 8.7 Troponin I < 0.0120 NT-Pro-B Natriuret Pep 1730 H 01/22/17 01/22/17 01/23/17 17:39 20:20 06:41 WBC 7.8 RBC 3.84 L Hgb 11.8 L Hct 35.3 MCV 92.1 MCH 30.8 MCHC 33.4 RDW 13.6 Plt Count 219 MPV Neut % (Auto) Lymph % (Auto) [place] % (Auto) Eos % (Auto) Baso % (Auto) Neut # Lymph # [place] # Eos # Baso # PT INR APTT pCO2 38 pO2 66 L HCO3 23.5 ABG pH 7.39 ABG Total CO2 24.2 ABG O2 Saturation 96.8 ABG O2 Content 17.9 ABG Base Excess -1.7 ABG Hemoglobin 13.7 ABG Carboxyhemoglobin 2.6 H POC ABG HHb (Measured) 3.1 ABG Methemoglobin 1.3 ABG O2 Capacity 18.5 Russell Test Yes A-a O2 Difference 36.0 Hgb O2 Saturation 93.0 L FiO2 21.0 Sodium Potassium Chloride Carbon Dioxide Anion Gap BUN Creatinine Est GFR ( Amer) Est GFR (Non-Af Amer) Random Glucose Calcium Troponin I < 0.0120 NT-Pro-B Natriuret Pep 01/23/17 06:41 WBC RBC Hgb Hct MCV MCH MCHC RDW Plt Count MPV Neut % (Auto) Lymph % (Auto) [place] % (Auto) Eos % (Auto) Baso % (Auto) Neut # Lymph # [place] # Eos # Baso # PT INR APTT pCO2 pO2 HCO3 ABG pH ABG Total CO2 ABG O2 Saturation ABG O2 Content ABG Base Excess ABG Hemoglobin ABG Carboxyhemoglobin POC ABG HHb (Measured) ABG Methemoglobin ABG O2 Capacity Russell Test A-a O2 Difference Hgb O2 Saturation FiO2 Sodium 143 Potassium 4.0 Chloride 102 Carbon Dioxide 25 Anion Gap 19 BUN 38 H Creatinine 1.4 Est GFR ( Amer) 60 Est GFR (Non-Af Amer) 49 Random Glucose 167 H Calcium 8.8 Troponin I < 0.0120 NT-Pro-B Natriuret Pep - EKG Data EKG Interpreted by: Myself - EKG Data EKG Specific Queries Rhythm: Atrial Fib Assessment & Plan (1) Chest pain Assessment and Plan: Patient had stress test in November revealing normal myocardial perfusion. I will treate medically with betablocker and ASA. Would not start Plavix due to Eliquis. Status: Acute (2) Atrial fibrillation with controlled ventricular response Assessment and Plan: continue anticoagulation Status: Acute (3) Hyperlipidemia Assessment and Plan: statin therapy Status: Acute
--- NOTE | 2017-01-23 12:27 | CT ---
PROCEDURE: CT chest dated 01/23/2017 HISTORY: Exacerbation COPD COMPARISON: None. TECHNIQUE: Contiguous axial images were obtained through the chest without intravenous contrast enhancement. Sagittal and coronal reconstructions were performed. Radiation dose (DLP): 692.55 mGy-cm. This CT exam was performed using one or more of the following dose reduction techniques: Automated exposure control, adjustment of the mA and/or kV according to patient size, and/or use of iterative reconstruction technique. FINDINGS: LUNGS: Minor irregular linear atelectasis/scarring change in the left lingular and middle lobe regions extending to the pleural surfaces. There also chronic atelectasis and or scarring changes seen in the right and to a lesser degree left posterior sulci. There appears to be some localized pleural thickening in the right posterior upper lobe. . No parenchymal masses or obvious nodules. . Questionable curvilinear full based calcification right lung base versus calcification within the capsule or peripheral parenchymal surface of the upper lobe liver MEDIASTINUM: Heart is mildly enlarged. No significant pericardial effusion. Coronary artery calcifications. . Ascending thoracic aorta measures approximately 3.56 cm and descending thoracic aorta measures approximately 2.72 cm. . Pulmonary trunk measures approximately 2.65 cm. Central airways are midline and patent. No large endoluminal lesions. There is a small hiatal hernia with slight wall thickening of the distal esophagus that is likely due to protrusion of gastric mucosa. Esophagitis or other intrinsic/invasive wall lesion not excluded. PLEURA: No pleural fluid. No pneumothorax. BONES: Multilevel degenerative spondylosis of the thoracic spine. Prominent anterior bridging osteophyte formation noted within the mid thoracic region; findings suggest DISH. Mid. Several old healed right posterolateral rib fractures are again noted. UPPER ABDOMEN: There appears to be curvilinear wispy calcification which appear to be located in the superior aspect right lobe liver bordering the hemidiaphragm. These changes are nonspecific. Rule out post in the traumatic or post infectious/inflammatory etiologies. Follow-up CT scan of the abdomen pelvis could be performed for further evaluation if necessary. OTHER FINDINGS: None. IMPRESSION: There arm mild linear atelectasis/ scarring changes seen in both lung bases as well as the middle lobe and lingular regions. . No focal consolidation effusion or pneumothorax. Cardiomegaly. . Wispy curvilinear calcification presumably which appear to be located in the superior aspect right lobe liver bordering the hemidiaphragm. Follow-up CT scan of the of the liver could be performed for further evaluation if clinically indicated. See above discussion for additional findings and details.
--- NOTE | 2017-01-23 14:54 | CP.PCM.PN ---
Subjective - Date & Time of Evaluation Date of Evaluation: 01/23/17 Time of Evaluation: 09:50 - Subjective Subjective: F/U COPD Exacerbation. Pt with no SOB, no chest congestion, minimal cough at times with scanty yellowish phlegms. Objective - Vital Signs/Intake and Output Vital Signs (last 24 hours): Temp Pulse Resp BP Pulse Ox 97.7 F 75 18 151/77 H 96 01/23/17 12:48 01/23/17 12:48 01/23/17 12:48 01/23/17 12:48 01/23/17 12:48 - Medications Medications: Current Medications Albuterol/Ipratropium (Duoneb 3 Mg/0.5 Mg (3 Ml) Ud) 3 ml INH RQ6 [facility] Last Admin: 01/23/17 13:28 Dose: 3 ml Apixaban (Eliquis) 5 mg PO BID [facility] PRN Reason: Protocol Last Admin: 01/23/17 08:38 Dose: 5 mg Aspirin (Aspirin Chewable) 81 mg PO DAILY [facility] Last Admin: 01/23/17 08:37 Dose: 81 mg Atorvastatin Calcium (Lipitor) 40 mg PO DAILY [facility] Last Admin: 01/23/17 08:38 Dose: 40 mg Carvedilol (Coreg) 25 mg PO Q12H [facility] Last Admin: 01/23/17 04:30 Dose: 25 mg Folic Acid (Folic Acid) 1 mg PO DAILY [facility] Last Admin: 01/23/17 08:38 Dose: 1 mg Furosemide (Lasix) 40 mg IV BID [facility] Last Admin: 01/23/17 08:38 Dose: 40 mg Methylprednisolone (Solu-Medrol) 40 mg IVP Q8 [facility] Last Admin: 01/23/17 10:46 Dose: 40 mg Multivitamins/Minerals (Therapeutic-M Tab) 1 tab PO DAILY [facility] Last Admin: 01/23/17 08:38 Dose: 1 tab Valsartan (Diovan) 320 mg PO DAILY [facility] Last Admin: 01/23/17 08:37 Dose: 320 mg - Labs Labs: 01/23/17 06:41 01/23/17 06:41 PT 12.7 Seconds (9.8-13.1) 01/22/17 12:50 INR 1.1 (0.9-1.2) 01/22/17 12:50 APTT 37.9 Seconds (25.6-37.1) H 01/22/17 12:50 - Constitutional Appears: No Acute Distress, Chronically Ill - Head Exam Head Exam: NORMAL INSPECTION - Eye Exam Eye Exam: PERRL - ENT Exam ENT Exam: Normal Exam - Neck Exam Neck Exam: Normal Inspection - Respiratory Exam Respiratory Exam: Decreased Breath Sounds (b/l), Rhonchi (scattered b/l) - Cardiovascular Exam Cardiovascular Exam: Irregular Rhythm Additional comments: Sternotomy scar - GI/Abdominal Exam GI & Abdominal Exam: Soft, Normal Bowel Sounds - Extremities Exam Extremities Exam: Pedal Edema - Back Exam Back Exam: NORMAL INSPECTION - Neurological Exam Neurological Exam: Alert, Oriented x3. absent: Motor Sensory Deficit - Psychiatric Exam Psychiatric exam: Normal Mood - Skin Skin Exam: Warm Assessment and Plan (1) COPD exacerbation Status: Acute (2) CHF (congestive heart failure) Status: Acute (3) Atrial fibrillation Status: Chronic (4) Hx of CABG Status: Chronic - Assessment and Plan (Free Text) Plan: Continue Duoneb, Solumedrol.
[2017-01-24] MEDS: MethylPREDNISolone 40 mg Vial IVP SCH ×3 (00:52→16:13)
[2017-01-24] MEDS: Albuterol-Ipratrop 3 mg / 0.5 (3 ml) UD INH SCH ×4 (01:15→19:34)
[2017-01-24 06:03] LABS: HEMATOCRIT 32.5 % (35.0-51.0); MEAN CELL VOLUME 90.7 fl (80.0-94.0); MEAN CORPUSCULAR HEMOGLOBIN 30.8 pg (27.0-31.0); RED CELL DISTRIBUTION WIDTH 13.5 % (11.5-14.5); WHITE BLOOD COUNT 9.4 K/uL (4.8-10.8)
[2017-01-24 06:20] LABS: ALB/GLOB RATIO 1.4 (1.0-2.1); BILIRUBIN,TOTAL 0.7 mg/dl (0.2-1.3); TOTAL PROTEIN 7.1 G/DL (6.3-8.2)
[2017-01-24] MEDS: Multivitamin With Minerals Tab PO SCH (08:55)
--- NOTE | 2017-01-24 09:49 | HP ---
CHIEF COMPLAINT: Shortness of breath. HISTORY OF PRESENT ILLNESS: This is a 76-year-old male with known case of CHF, COPD, atrial fibrillation, coronary artery disease, hypertension, who is very noncompliant with medication, who was recently discharged from subacute care facility and the patient went home. He is very confused about medication and apparently he is not taking them correctly or regularly or consistently. The patient started having shortness of breath and care was brought to the emergency room and was found to have exacerbation of CHF, COPD and was admitted for further management. REVIEW OF SYSTEMS: Positive for shortness of breath. Review of systems otherwise is negative for headache, dizziness, syncope, loss of consciousness, chest pain, nausea, vomiting, diarrhea, constipation, any new joint or extremity pain. Review of systems of all other organ system is unremarkable. PAST MEDICAL HISTORY: Significant for atrial fibrillation, hypertension, coronary artery disease, CHF, COPD, diabetes, elevated cholesterol, CKD, arthritis. PAST SURGICAL HISTORY: Remarkable for coronary artery bypass graft about 10 or 11 years ago. FAMILY HISTORY: Noncontributory. MEDICATIONS: The patient is supposed to be on Eliquis, folic acid, multivitamin, carvedilol, DuoNeb, aspirin, atorvastatin, and Lasix. The patient only seems to be taking atorvastatin and that's only name he could remember. Apparently, the patient has side effect from amlodipine, but does not seem to be really allergic reaction, seems to be only nausea. PHYSICAL EXAMINATION: GENERAL: Well-built, well-nourished, overweight, 76-year-old male in no acute distress. VITAL SIGNS: Temperature 98, pulse 79, respirations 20, blood pressure 119/66, saturations 96%. HEENT: Pupils reacting to light. NECK: No JVD. No thyromegaly. No lymphadenopathy. No nystagmus. Normocephalic and atraumatic skull. HEART: S1 and S2, normal and regular. No significant murmur, gallop, or rub is heard. The patient has irregularly irregular heart rate. LUNGS: Good bilateral air exchange. Occasional crepitations and prolonged expiration on auscultation. ABDOMEN: Soft , nontender. No organomegaly, no fluid. Bowel sounds are plus. EXTREMITIES: The patient has 1 to 2+ pitting edema. No calf swelling. No tenderness. No acute ischemia. CENTRAL NERVOUS SYSTEM: The patient is awake, responsive. But does not seem to be in any acute gross focal motor or sensory neurological deficit. DIAGNOSTIC DATA: Available diagnostic data reviewed. Telemetry monitoring does not reveal significant arrhythmia. Cardiac profile 2 sets are negative. ProBNP level is 1730, sodium 142, potassium 5.7, chloride 107, bicarbonate 25, BUN 35, creatinine 1.4. Blood gas shows pH 7.39, pCO2 of 38, pO2 of 66, saturation 96.8%. WBC 6.7, hemoglobin 11.5, hematocrit 33.7, platelets 192. EKG does not reveal any acute ST-T changes. Pulmonary consult noted and appreciated. ADMITTING IMPRESSION: Congestive heart failure exacerbation, systolic, [id number]; chronic obstructive pulmonary disease exacerbation, [id number], most likely secondary to noncompliance. The patient also has history of hypertension, elevated cholesterol, diabetes, coronary artery disease and dementia. PLAN: As ordered. Joel Caruso MD
--- NOTE | 2017-01-24 14:05 | PQF GENQUE ---
This form is a permanent part of the medical record 01/24/17 Dr. Caruso, 1. Please clarify the stage of the chronic kidney disease if known: Stage 1 Stage 2 (mild) Stage 3 (moderate) Stage 4 (severe) Stage 5 Other (please specify) Clinically unable to determine Unknown 2. Please clarify any known or suspected underlying cause of chronic kidney disease such as: Diabetes Hypertension Other (please specify) Clinically unable to determine Unknown Patient with a history of HTN is being admitted for an acute exacerbation of CHF and COPD. H&P with a history of CKD. BUN 35, 38, 48C Creatinine 1.4, 1.4, 1.5 GFR ( ) 60, 60, 55 GFR ( Non-) 49, 49, 46 Clarification of your documentation is requested to better reflect the severity of illness and intensity of treatment of your patient. Indicators present [] Specify: [] [] Specify: [] [] Specify: [] [] Specify: [] Location in the medical record that reflects the above clinical findings: [] Treatment Provided: [] PHYSICIAN'S RESPONSE Based on your medical judgment of the clinical indicators outlined above please clarify the following: [] Practitioner response [] If unable to determine, please check the box, sign and date. Present On Admission (POA) Indicator: [] Present at the time of admission [] Not present at the time of admission [] Clinically Undetermined In responding to this query, please exercise your independent professional judgment. The fact that a question is asked does not imply that any particular answer is desired or expected. Thank you for your clarification on this documentation. If you have any questions please call:ext [phone] * Thank you, Courtney Gray RN CDMP MTDD
--- NOTE | 2017-01-24 14:09 | PQF GENQUE ---
This form is a permanent part of the medical record 01/24/17 Dr. Caruso, Would you please clarify if there is an associated diagnosis or not to go along with the K level of 5.7 on admission. K level 5.7. Treated with Kayexalate and the level came down to 4.0. Clarification of your documentation is requested to better reflect the severity of illness and intensity of treatment of your patient. Indicators present [] Specify: [] [] Specify: [] [] Specify: [] [] Specify: [] Location in the medical record that reflects the above clinical findings: [] Treatment Provided: [] PHYSICIAN'S RESPONSE Based on your medical judgment of the clinical indicators outlined above please clarify the following: [] Practitioner response [] If unable to determine, please check the box, sign and date. Present On Admission (POA) Indicator: [] Present at the time of admission [] Not present at the time of admission [] Clinically Undetermined In responding to this query, please exercise your independent professional judgment. The fact that a question is asked does not imply that any particular answer is desired or expected. Thank you for your clarification on this documentation. If you have any questions please call:ext [phone] * Thank you, Courtney Gray RN [facility]
--- NOTE | 2017-01-24 16:40 | CP.PCM.PN ---
Objective - Vital Signs/Intake and Output Vital Signs (last 24 hours): Temp Pulse Resp BP Pulse Ox 98.3 F 94 H 18 122/70 94 L 01/24/17 16:00 01/24/17 16:12 01/24/17 16:00 01/24/17 16:12 01/24/17 16:00 Intake and Output: 01/24/17 01/24/17 06:59 18:59 Intake Total 200 Output Total 600 Balance -400 - Medications Medications: Current Medications Albuterol/Ipratropium (Duoneb 3 Mg/0.5 Mg (3 Ml) Ud) 3 ml INH RQ6 [facility] Last Admin: 01/24/17 13:20 Dose: 3 ml Apixaban (Eliquis) 5 mg PO BID [facility] PRN Reason: Protocol Last Admin: 01/24/17 16:12 Dose: 5 mg Aspirin (Aspirin Chewable) 81 mg PO DAILY [facility] Last Admin: 01/24/17 08:55 Dose: 81 mg Atorvastatin Calcium (Lipitor) 40 mg PO DAILY [facility] Last Admin: 01/24/17 08:54 Dose: 40 mg Carvedilol (Coreg) 25 mg PO Q12H [facility] Last Admin: 01/24/17 16:12 Dose: 25 mg Folic Acid (Folic Acid) 1 mg PO DAILY [facility] Last Admin: 01/24/17 08:55 Dose: 1 mg Furosemide (Lasix) 40 mg IV BID [facility] Last Admin: 01/24/17 16:11 Dose: 40 mg Methylprednisolone (Solu-Medrol) 40 mg IVP Q8 [facility] Last Admin: 01/24/17 16:13 Dose: 40 mg Multivitamins/Minerals (Therapeutic-M Tab) 1 tab PO DAILY [facility] Last Admin: 01/24/17 08:55 Dose: 1 tab Valsartan (Diovan) 320 mg PO DAILY [facility] Last Admin: 01/24/17 08:54 Dose: 320 mg - Labs Labs: 01/24/17 05:00 01/24/17 05:00 PT 12.7 Seconds (9.8-13.1) 01/22/17 12:50 INR 1.1 (0.9-1.2) 01/22/17 12:50 APTT 37.9 Seconds (25.6-37.1) H 01/22/17 12:50 Assessment and Plan (1) COPD exacerbation Status: Acute (2) CHF (congestive heart failure) Status: Acute (3) Atrial fibrillation Status: Chronic (4) Hx of CABG Status: Chronic
[2017-01-25] MEDS: MethylPREDNISolone 40 mg Vial IVP SCH ×3 (00:25→16:13)
[2017-01-25] MEDS: Albuterol-Ipratrop 3 mg / 0.5 (3 ml) UD INH SCH ×6 (01:17→23:36)
[2017-01-25] MEDS ORDERED: Albuterol-Ipratrop 3 mg / 0.5 (3 ml) UD INH STA (05:39)
[2017-01-25 06:05] LABS: HEMATOCRIT 32.4 % (35.0-51.0); MEAN CELL VOLUME 90.5 fl (80.0-94.0); MEAN CORPUSCULAR HEMOGLOBIN 30.8 pg (27.0-31.0); RED CELL DISTRIBUTION WIDTH 13.6 % (11.5-14.5); WHITE BLOOD COUNT 8.5 K/uL (4.8-10.8)
[2017-01-25 06:11] LABS: ALB/GLOB RATIO 1.5 (1.0-2.1); BILIRUBIN,TOTAL 0.4 mg/dl (0.2-1.3); CALCIUM 7.8 mg/dL (8.4-10.2); POTASSIUM 3.6 MMOL/L (3.6-5.0); TOTAL PROTEIN 6.7 G/DL (6.3-8.2)
[2017-01-25] MEDS ORDERED: Dextrose 50% SYRINGE Inj (50 ml) IV PRN (08:22)
[2017-01-25] MEDS ORDERED: Glucagon Recombinant 1 mg Inj IM PRN (08:22)
[2017-01-25] MEDS: Multivitamin With Minerals Tab PO SCH (08:25)
[2017-01-25] MEDS ORDERED: Enoxaparin 40 mg Syringe SC SCH (09:00)
--- NOTE | 2017-01-25 09:36 | PN ---
DATE: 01/24/2017 SUBJECTIVE: The patient is seen and examined. Interim events noted. Consults noted and appreciated. Cardiology and Pulmonary followup and intervention noted and appreciated. The patient remains in Progressive Care Unit on telemetry monitoring. Feels better. Shortness of breath improved. No chest pain. No shortness of breath at rest. PHYSICAL EXAMINATION: GENERAL: The patient is in no acute distress. VITAL SIGNS: Stable. HEART: S1 and S2, normal and regular. LUNGS: Good bilateral air exchange. ABDOMEN: Soft, nontender. EXTREMITIES: No calf swelling. No tenderness. No acute ischemia. No edema. CENTRAL NERVOUS SYSTEM: Essentially unchanged. DIAGNOSTIC DATA: Available diagnostic data reviewed. Telemetry monitoring does not reveal significant arrhythmias. ASSESSMENT AND PLAN: Overall, the patient is slowly improving. Plan as ordered. Joel Caruso MD
--- NOTE | 2017-01-25 10:58 | CP.PCM.PN ---
<Mirian Escobar - Last Filed: 01/25/17 12:42> Subjective - Date & Time of Evaluation Date of Evaluation: 01/25/17 Time of Evaluation: 07:50 - Subjective Subjective: Patient seen and examined with attending. Feeling a little better. Not at baseline. He is receiving treatment while interviewing this morning. Very decreased breath sounds throughout bilateral lung portillo, mild crackled in right upper lobe. Will increase frequency of treatments, if he is unable to tolerate ill switch to xopenex. Continue with prednisone 40mg q8. insulin coverage for hyperglycemia 2' to steroid use PT/OT eval Objective - Vital Signs/Intake and Output Vital Signs (last 24 hours): Temp Pulse Resp BP Pulse Ox 97.1 F L 60 18 145/71 94 L 01/25/17 08:00 01/25/17 08:17 01/25/17 08:00 01/25/17 08:24 01/25/17 08:00 - Medications Medications: Current Medications Albuterol/Ipratropium (Duoneb 3 Mg/0.5 Mg (3 Ml) Ud) 3 ml INH RQ4 [facility] Apixaban (Eliquis) 5 mg PO BID [facility] PRN Reason: Protocol Last Admin: 01/24/17 16:12 Dose: 5 mg Aspirin (Aspirin Chewable) 81 mg PO DAILY [facility] Last Admin: 01/25/17 08:22 Dose: 81 mg Atorvastatin Calcium (Lipitor) 40 mg PO DAILY [facility] Last Admin: 01/25/17 08:24 Dose: 40 mg Carvedilol (Coreg) 25 mg PO Q12H [facility] Last Admin: 01/25/17 03:36 Dose: 25 mg Dextrose (Dextrose 50% Inj) 0 ml IV STAT PRN; Protocol PRN Reason: Hypoglycemia Protocol Dextrose (Glutose 15) 0 gm PO ONCE PRN; Protocol PRN Reason: Hypoglycemia Protocol Folic Acid (Folic Acid) 1 mg PO DAILY [facility] Last Admin: 01/25/17 08:24 Dose: 1 mg Furosemide (Lasix) 40 mg IV BID [facility] Last Admin: 01/25/17 08:24 Dose: 40 mg Glucagon (Glucagen Diagnostic Kit) 0 mg IM STAT PRN; Protocol PRN Reason: Hypoglycemia Protocol Insulin Human Regular (Humulin R) 0 units SC ACHS [facility] PRN Reason: Protocol Methylprednisolone (Solu-Medrol) 40 mg IVP Q8 [facility] Last Admin: 11/14/17 08:25 Dose: 40 mg Multivitamins/Minerals (Therapeutic-M Tab) 1 tab PO DAILY [facility] Last Admin: 01/25/17 08:25 Dose: 1 tab Valsartan (Diovan) 320 mg PO DAILY [facility] Last Admin: 01/25/17 08:23 Dose: 320 mg - Labs Labs: 01/25/17 04:25 01/25/17 04:25 PT 12.7 Seconds (9.8-13.1) 01/22/17 12:50 INR 1.1 (0.9-1.2) 01/22/17 12:50 APTT 37.9 Seconds (25.6-37.1) H 01/22/17 12:50 - Constitutional Appears: Non-toxic, No Acute Distress - Head Exam Head Exam: ATRAUMATIC, NORMAL INSPECTION, NORMOCEPHALIC - Respiratory Exam Respiratory Exam: Decreased Breath Sounds (diffusely), Prolonged Expiratory Phase. absent: Accessory Muscle Use, Chest Wall Tenderness, Rhonchi, Wheezes, Respiratory Distress - Cardiovascular Exam Cardiovascular Exam: Irregular Rhythm, +S1, +S2 - GI/Abdominal Exam GI & Abdominal Exam: Soft. absent: Distended, Guarding, Tenderness - Extremities Exam Extremities Exam: Normal Inspection. absent: Pedal Edema - Neurological Exam Neurological Exam: Alert, Awake, CN II-XII Intact, Oriented x3 - Psychiatric Exam Psychiatric exam: Normal Affect, Normal Mood - Skin Skin Exam: Dry, Intact, Normal Color, Warm Assessment and Plan (1) COPD exacerbation Assessment & Plan: 76 year old male with hx of COPD, CHF with reduced EF, HLD, AFIB admitted for COPD exacerbation. Chest CT reviewed. Labs reviewed. Currently on Prednisone 40mg q8, duonebs QID. Discontinue duonebs Q6 Start duonebs Q4 hours Status: Acute (2) CHF exacerbation Assessment & Plan: Pro bnp elevateD: >1700 cardiology is following resume home medications last echo: July 2016: EF 45-50%, mildly reduced LV function, LVH, systolic function mildly impaired Status: Acute (3) Hyperkalemia Assessment & Plan: possibly 2' to dehydration in combination with ARB patient had elevated BUN/Cr on admission however has had elevated BUN in the past. GFR is mildly decreased as well, likely age related Status: Resolved (4) Atrial fibrillation Assessment & Plan: on eliquis, coreg. controlled Status: Chronic (5) HTN (hypertension) Assessment & Plan: mostly controlled -continue home medications Status: Chronic (6) DVT prophylaxis Assessment & Plan: pt is on eliquis Status: Acute <Joel Caruso K - Last Filed: 01/27/17 10:35> Objective - Vital Signs/Intake and Output Vital Signs (last 24 hours): Temp Pulse Resp BP Pulse Ox 97.7 F 65 18 142/89 94 L 01/27/17 07:50 01/27/17 07:50 01/27/17 07:50 01/27/17 08:39 01/27/17 07:50 - Medications Medications: Current Medications Albuterol/Ipratropium (Duoneb 3 Mg/0.5 Mg (3 Ml) Ud) 3 ml INH RQ4 [facility] Last Admin: 01/27/17 07:45 Dose: 3 ml Apixaban (Eliquis) 5 mg PO BID [facility] PRN Reason: Protocol Last Admin: 01/27/17 08:39 Dose: 5 mg Aspirin (Aspirin Chewable) 81 mg PO DAILY [facility] Last Admin: 01/27/17 08:38 Dose: 81 mg Atorvastatin Calcium (Lipitor) 40 mg PO DAILY [facility] Last Admin: 01/27/17 08:40 Dose: 40 mg Carvedilol (Coreg) 25 mg PO Q12H [facility] Last Admin: 01/27/17 04:24 Dose: 25 mg Dextrose (Dextrose 50% Inj) 0 ml IV STAT PRN; Protocol PRN Reason: Hypoglycemia Protocol Dextrose (Glutose 15) 0 gm PO ONCE PRN; Protocol PRN Reason: Hypoglycemia Protocol Folic Acid (Folic Acid) 1 mg PO DAILY [facility] Last Admin: 01/27/17 08:39 Dose: 1 mg Furosemide (Lasix) 40 mg IV BID [facility] Last Admin: 01/27/17 08:39 Dose: 40 mg Glucagon (Glucagen Diagnostic Kit) 0 mg IM STAT PRN; Protocol PRN Reason: Hypoglycemia Protocol Guaifenesin/Dextromethorphan (Mucinex-Dm 600-30 Mg) 1 tab PO BID [facility] Last Admin: 01/27/17 08:40 Dose: 1 tab Insulin Human Regular (Humulin R) 0 units SC ACHS [facility] PRN Reason: Protocol Last Admin: 01/27/17 06:32 Dose: Not Given Methylprednisolone (Solu-Medrol) 40 mg IVP Q8 [facility] Last Admin: 01/27/17 08:41 Dose: 40 mg Multivitamins/Minerals (Therapeutic-M Tab) 1 tab PO DAILY [facility] Last Admin: 01/27/17 08:41 Dose: 1 tab Promethazine HCl (Phenergan Syrup) 12.5 mg PO Q6 PRN PRN Reason: Cough Last Admin: 01/27/17 08:38 Dose: 12.5 mg Valsartan (Diovan) 320 mg PO DAILY [facility] Last Admin: 01/27/17 08:39 Dose: 320 mg - Labs Labs: 01/26/17 04:30 01/26/17 04:30 PT 12.7 Seconds (9.8-13.1) 01/22/17 12:50 INR 1.1 (0.9-1.2) 01/22/17 12:50 APTT 37.9 Seconds (25.6-37.1) H 01/22/17 12:50 Assessment and Plan - Assessment and Plan (Free Text) Assessment: Patient was personally seen and examined by me in rounds with residents. Available labs and diagnostic data reviewed. Case, Patient's condition and management plan discussed with residents in rounds. Agree with resident's progress note. Plan: As ordered.
[2017-01-25] MEDS: Insulin Regular 100 units/ml SC SCH ×3 (12:00→22:25)
--- NOTE | 2017-01-25 16:03 | CP.PCM.PN ---
Subjective - Date & Time of Evaluation Date of Evaluation: 01/25/17 Time of Evaluation: 09:40 - Subjective Subjective: F/U COPD Exacerbation. No SOB, occasional cough, minimal chest congestion. Objective - Vital Signs/Intake and Output Vital Signs (last 24 hours): Temp Pulse Resp BP Pulse Ox 98.0 F 69 18 126/79 97 01/25/17 12:00 01/25/17 12:00 01/25/17 12:00 01/25/17 12:00 01/25/17 12:00 - Medications Medications: Current Medications Albuterol/Ipratropium (Duoneb 3 Mg/0.5 Mg (3 Ml) Ud) 3 ml INH RQ4 [facility] Last Admin: 01/25/17 15:53 Dose: 3 ml Apixaban (Eliquis) 5 mg PO BID [facility] PRN Reason: Protocol Last Admin: 01/25/17 11:59 Dose: 5 mg Aspirin (Aspirin Chewable) 81 mg PO DAILY [facility] Last Admin: 01/25/17 08:22 Dose: 81 mg Atorvastatin Calcium (Lipitor) 40 mg PO DAILY [facility] Last Admin: 01/25/17 08:24 Dose: 40 mg Carvedilol (Coreg) 25 mg PO Q12H [facility] Last Admin: 01/25/17 03:36 Dose: 25 mg Dextrose (Dextrose 50% Inj) 0 ml IV STAT PRN; Protocol PRN Reason: Hypoglycemia Protocol Dextrose (Glutose 15) 0 gm PO ONCE PRN; Protocol PRN Reason: Hypoglycemia Protocol Folic Acid (Folic Acid) 1 mg PO DAILY [facility] Last Admin: 01/25/17 08:24 Dose: 1 mg Furosemide (Lasix) 40 mg IV BID [facility] Last Admin: 01/25/17 08:24 Dose: 40 mg Glucagon (Glucagen Diagnostic Kit) 0 mg IM STAT PRN; Protocol PRN Reason: Hypoglycemia Protocol Guaifenesin/Dextromethorphan (Mucinex-Dm 600-30 Mg) 1 tab PO BID [facility] Insulin Human Regular (Humulin R) 0 units SC ACHS [facility] PRN Reason: Protocol Last Admin: 01/25/17 12:00 Dose: 4 units Methylprednisolone (Solu-Medrol) 40 mg IVP Q8 [facility] Last Admin: 01/25/17 08:25 Dose: 40 mg Multivitamins/Minerals (Therapeutic-M Tab) 1 tab PO DAILY [facility] Last Admin: 01/25/17 08:25 Dose: 1 tab Promethazine HCl (Phenergan Syrup) 12.5 mg PO Q6 PRN PRN Reason: Cough Valsartan (Diovan) 320 mg PO DAILY [facility] Last Admin: 01/25/17 08:23 Dose: 320 mg - Labs Labs: 01/25/17 04:25 01/25/17 04:25 PT 12.7 Seconds (9.8-13.1) 01/22/17 12:50 INR 1.1 (0.9-1.2) 01/22/17 12:50 APTT 37.9 Seconds (25.6-37.1) H 01/22/17 12:50 - Constitutional Appears: No Acute Distress, Chronically Ill - Head Exam Head Exam: NORMAL INSPECTION - Eye Exam Eye Exam: PERRL - ENT Exam ENT Exam: Normal Exam - Neck Exam Neck Exam: Normal Inspection - Respiratory Exam Respiratory Exam: Decreased Breath Sounds (b/l), Rhonchi (scattered b/l), Wheezes (b/) - Cardiovascular Exam Cardiovascular Exam: Irregular Rhythm Additional comments: Sternotomy scar healed - GI/Abdominal Exam GI & Abdominal Exam: Soft, Normal Bowel Sounds - Extremities Exam Extremities Exam: Normal Inspection - Back Exam Back Exam: NORMAL INSPECTION - Neurological Exam Neurological Exam: Alert, Oriented x3. absent: Motor Sensory Deficit - Psychiatric Exam Psychiatric exam: Normal Mood - Skin Skin Exam: Warm Assessment and Plan (1) COPD exacerbation Status: Acute (2) CHF (congestive heart failure) Status: Acute (3) Atrial fibrillation Status: Chronic (4) Hx of CABG Status: Chronic - Assessment and Plan (Free Text) Plan: Continue Solumedrol, Duoneb and rest of Tx.
[2017-01-25] MEDS: guaiFENesin-DM 600-30 mg ER Tab PO SCH (16:12)
[2017-01-25] MEDS: Promethazine 12.5 mg/10 ml Syrup PO PRN ×2 (16:13→22:23)
--- NOTE | 2017-01-25 19:55 | CP.PCM.PN ---
Subjective - Date & Time of Evaluation Date of Evaluation: 01/25/17 Time of Evaluation: 19:45 - Subjective Subjective: Patient has no new complaints. Objective - Vital Signs/Intake and Output Vital Signs (last 24 hours): Temp Pulse Resp BP Pulse Ox 98.6 F 69 17 148/75 95 01/25/17 16:22 01/25/17 16:22 01/25/17 16:22 01/25/17 16:22 01/25/17 16:22 - Medications Medications: Current Medications Albuterol/Ipratropium (Duoneb 3 Mg/0.5 Mg (3 Ml) Ud) 3 ml INH RQ4 [facility] Last Admin: 01/25/17 19:16 Dose: 3 ml Apixaban (Eliquis) 5 mg PO BID [facility] PRN Reason: Protocol Last Admin: 01/25/17 16:11 Dose: 5 mg Aspirin (Aspirin Chewable) 81 mg PO DAILY [facility] Last Admin: 01/25/17 08:22 Dose: 81 mg Atorvastatin Calcium (Lipitor) 40 mg PO DAILY [facility] Last Admin: 01/25/17 08:24 Dose: 40 mg Carvedilol (Coreg) 25 mg PO Q12H [facility] Last Admin: 01/25/17 16:11 Dose: 25 mg Dextrose (Dextrose 50% Inj) 0 ml IV STAT PRN; Protocol PRN Reason: Hypoglycemia Protocol Dextrose (Glutose 15) 0 gm PO ONCE PRN; Protocol PRN Reason: Hypoglycemia Protocol Folic Acid (Folic Acid) 1 mg PO DAILY [facility] Last Admin: 01/25/17 08:24 Dose: 1 mg Furosemide (Lasix) 40 mg IV BID [facility] Last Admin: 01/25/17 16:12 Dose: 40 mg Glucagon (Glucagen Diagnostic Kit) 0 mg IM STAT PRN; Protocol PRN Reason: Hypoglycemia Protocol Guaifenesin/Dextromethorphan (Mucinex-Dm 600-30 Mg) 1 tab PO BID [facility] Last Admin: 01/25/17 16:12 Dose: 1 tab Insulin Human Regular (Humulin R) 0 units SC ACHS [facility] PRN Reason: Protocol Last Admin: 01/25/17 16:19 Dose: 4 units Methylprednisolone (Solu-Medrol) 40 mg IVP Q8 [facility] Last Admin: 01/25/17 16:13 Dose: 40 mg Multivitamins/Minerals (Therapeutic-M Tab) 1 tab PO DAILY [facility] Last Admin: 01/25/17 08:25 Dose: 1 tab Promethazine HCl (Phenergan Syrup) 12.5 mg PO Q6 PRN PRN Reason: Cough Last Admin: 01/25/17 16:13 Dose: 12.5 mg Valsartan (Diovan) 320 mg PO DAILY [facility] Last Admin: 01/25/17 08:23 Dose: 320 mg - Labs Labs: 01/25/17 04:25 01/25/17 04:25 PT 12.7 Seconds (9.8-13.1) 01/22/17 12:50 INR 1.1 (0.9-1.2) 01/22/17 12:50 APTT 37.9 Seconds (25.6-37.1) H 01/22/17 12:50 - Constitutional Appears: Non-toxic - Head Exam Head Exam: NORMAL INSPECTION - Eye Exam Eye Exam: Normal appearance - ENT Exam ENT Exam: Mucous Membranes Moist - Neck Exam Neck Exam: Full ROM - Respiratory Exam Respiratory Exam: Decreased Breath Sounds - Cardiovascular Exam Cardiovascular Exam: Irregular Rhythm - GI/Abdominal Exam GI & Abdominal Exam: Normal Bowel Sounds - Rectal Exam Rectal Exam: Deferred - Extremities Exam Extremities Exam: absent: Pedal Edema - Back Exam Back Exam: NORMAL INSPECTION - Neurological Exam Neurological Exam: Alert - Psychiatric Exam Psychiatric exam: Normal Affect - Skin Skin Exam: Normal Color Assessment and Plan (1) Chest pain Assessment & Plan: resolved. no curretn angina Status: Acute (2) Atrial fibrillation with controlled ventricular response Assessment & Plan: well controlled rate Status: Acute (3) Hyperlipidemia Assessment & Plan: statin therapy Status: Acute
[2017-01-26] MEDS: MethylPREDNISolone 40 mg Vial IVP SCH ×3 (01:39→18:00)
[2017-01-26] MEDS: Albuterol-Ipratrop 3 mg / 0.5 (3 ml) UD INH SCH ×6 (05:20→23:53)
[2017-01-26 05:53] LABS: HEMATOCRIT 32.9 % (35.0-51.0); MEAN CELL VOLUME 91.4 fl (80.0-94.0); MEAN CORPUSCULAR HEMOGLOBIN 30.6 pg (27.0-31.0); MEAN CORPUSCULAR HGB CONC 33.4 g/dL (33.0-37.0); RED CELL DISTRIBUTION WIDTH 13.9 % (11.5-14.5); WHITE BLOOD COUNT 8.4 K/uL (4.8-10.8)
[2017-01-26 06:06] LABS: CALCIUM 7.9 mg/dL (8.4-10.2); POTASSIUM 3.5 MMOL/L (3.6-5.0)
[2017-01-26] MEDS: Insulin Regular 100 units/ml SC SCH ×4 (06:45→22:30)
[2017-01-26] MEDS: Promethazine 12.5 mg/10 ml Syrup PO PRN ×3 (06:46→23:48)
[2017-01-26] MEDS: Multivitamin With Minerals Tab PO SCH (08:51)
[2017-01-26] MEDS: guaiFENesin-DM 600-30 mg ER Tab PO SCH ×2 (08:51→17:59)
--- NOTE | 2017-01-26 14:16 | CP.PCM.DIS ---
<Mirian Escobar - Last Filed: 01/26/17 14:23> Provider - Provider Date of Admission: 01/23/17 10:37 Attending physician: Joel Caruso MD Consults: Cardiology: DR. Kincaid Pulmonology : Dr. Carey Time Spent in preparation of Discharge (in minutes): 35 Diagnosis - Discharge Diagnosis (1) COPD exacerbation Status: Acute Priority: High (2) CHF exacerbation Status: Acute (3) Hyperkalemia Status: Resolved (4) Atrial fibrillation Status: Chronic Priority: High (5) HTN (hypertension) Status: Chronic Hospital Course - Lab Results Lab Results: Most Recent Lab Values WBC 8.4 K/uL (4.8-10.8) 01/26/17 04:30 RBC 3.59 Mil/uL (4.40-5.90) L 01/26/17 04:30 Hgb 11.0 g/dL (12.0-18.0) L 01/26/17 04:30 Hct 32.9 % (35.0-51.0) L 01/26/17 04:30 MCV 91.4 fl (80.0-94.0) 01/26/17 04:30 MCH 30.6 pg (27.0-31.0) 01/26/17 04:30 MCHC 33.4 g/dL (33.0-37.0) 01/26/17 04:30 RDW 13.9 % (11.5-14.5) 01/26/17 04:30 Plt Count 196 K/uL (130-400) 01/26/17 04:30 MPV 9.1 fl (7.2-11.7) 01/22/17 12:50 Neut % (Auto) 57.2 % (50.0-75.0) 01/22/17 12:50 Lymph % (Auto) 20.1 % (20.0-40.0) 01/22/17 12:50 [place] % (Auto) 14.1 % (0.0-10.0) H 01/22/17 12:50 Eos % (Auto) 7.4 % (0.0-4.0) H 01/22/17 12:50 Baso % (Auto) 1.2 % (0.0-2.0) 01/22/17 12:50 Neut # 3.8 K/uL (1.8-7.0) 01/22/17 12:50 Lymph # 1.4 K/uL (1.0-4.3) 01/22/17 12:50 [place] # 0.9 K/uL (0.0-0.8) H 01/22/17 12:50 Eos # 0.5 K/uL (0.0-0.7) 01/22/17 12:50 Baso # 0.1 K/uL (0.0-0.2) 01/22/17 12:50 PT 12.7 Seconds (9.8-13.1) 01/22/17 12:50 INR 1.1 (0.9-1.2) 01/22/17 12:50 APTT 37.9 Seconds (25.6-37.1) H 01/22/17 12:50 pCO2 38 mm/Hg (35-45) 01/22/17 17:39 pO2 66 mm/Hg (80-100) L 01/22/17 17:39 HCO3 23.5 mmol/L (21-28) 01/22/17 17:39 ABG pH 7.39 (7.35-7.45) 01/22/17 17:39 ABG Total CO2 24.2 mmol/L (22-28) 01/22/17 17:39 ABG O2 Saturation 96.8 % (95-98) 01/22/17 17:39 ABG O2 Content 17.9 ML/dL (15-23) 01/22/17 17:39 ABG Base Excess -1.7 mmol/L (-2.0-3.0) 01/22/17 17:39 ABG Hemoglobin 13.7 g/dL (11.7-17.4) 01/22/17 17:39 ABG Carboxyhemoglobin 2.6 % (0.5-1.5) H 01/22/17 17:39 POC ABG HHb (Measured) 3.1 % (0.0-5.0) 01/22/17 17:39 ABG Methemoglobin 1.3 % (0.0-3.0) 01/22/17 17:39 ABG O2 Capacity 18.5 mL/dL (16-24) 01/22/17 17:39 Russell Test Yes 01/22/17 17:39 A-a O2 Difference 36.0 mm/Hg 01/22/17 17:39 Hgb O2 Saturation 93.0 % (95.0-98.0) L 01/22/17 17:39 FiO2 21.0 % 01/22/17 17:39 Sodium 139 mmol/l (132-148) 01/26/17 04:30 Potassium 3.5 MMOL/L (3.6-5.0) L 01/26/17 04:30 Chloride 100 mmol/L (98-107) 01/26/17 04:30 Carbon Dioxide 28 mmol/L (22-30) 01/26/17 04:30 Anion Gap 15 (10-20) 01/26/17 04:30 BUN 47 mg/dl (9-20) H 01/26/17 04:30 Creatinine 1.4 mg/dl (0.8-1.5) 01/26/17 04:30 Est GFR ( Amer) 60 01/26/17 04:30 Est GFR (Non-Af Amer) 49 01/26/17 04:30 POC Glucose (mg/dL) 235 mg/dL (65-110) H 01/26/17 11:02 Random Glucose 176 mg/dL (75-110) H 01/26/17 04:30 Calcium 7.9 mg/dL (8.4-10.2) L 01/26/17 04:30 Total Bilirubin 0.4 mg/dl (0.2-1.3) 01/25/17 04:25 AST 16 U/L (17-59) L 01/25/17 04:25 ALT 33 U/L (21-72) 01/25/17 04:25 Alkaline Phosphatase 121 U/L (38-126) 01/25/17 04:25 Troponin I < 0.0120 ng/mL (0.00-0.120) 01/23/17 06:41 NT-Pro-B Natriuret Pep 1730 pg/ml (0-900) H 01/22/17 12:50 Total Protein 6.7 G/DL (6.3-8.2) 01/25/17 04:25 Albumin 4.0 g/dL (3.5-5.0) 01/25/17 04:25 Globulin 2.7 gm/dL (2.2-3.9) 01/25/17 04:25 Albumin/Globulin Ratio 1.5 (1.0-2.1) 01/25/17 04:25 - Hospital Course Hospital Course: The patient was seen and examined with Dr. Caruso. 76 year old male admitted for acute copd and chf exacerbation. Patient has been receiving duoneb treatments, solumedrol with improvement of his symptoms. He has been lying in bed comfortaby, no respiratory distress. Lung exam reveals mild diffuse wheezing, no rhonchi, with improved air entry bilaterally. He is ambulating in the hallways without any difficulty. The patient has walker at home, 'states he doesn't use it much.' The patient has been cleared by pulmonology and cardiology for discharge. He can continue to use dunoebs at home PRN, he has a nebulizer machine. Will discharge with medrol dose pack. - Date & Time of H&P Date of H&P: 01/23/17 Time of H&P: 06:53 Discharge Exam - Head Exam Head Exam: NORMAL INSPECTION - Eye Exam Eye Exam: EOMI, Normal appearance, PERRL - Respiratory Exam Respiratory Exam: Decreased Breath Sounds, Wheezes (diffuse), NORMAL BREATHING PATTERN. absent: Respiratory Distress - Cardiovascular Exam Cardiovascular Exam: Irregular Rhythm, +S1, +S2 - GI/Abdominal Exam GI & Abdominal Exam: Unremarkable - Neurological Exam Neurological exam: Alert, CN II-XII Intact, Oriented x3 - Psychiatric Exam Psychiatric exam: Normal Affect, Normal Mood - Skin Skin Exam: Dry, Intact, Normal Color, Warm Discharge Plan - Discharge Medications Prescriptions: Apixaban [Eliquis] 5 mg PO BID #60 tablet Aspirin [Aspirin Chewable] 81 mg PO DAILY #30 chew Atorvastatin [Lipitor] 40 mg PO DAILY #30 tab Carvedilol [Coreg] 25 mg PO Q12H #60 tab Folic Acid 1 mg PO DAILY #30 tab Furosemide [Lasix] 40 mg PO DAILY #30 tab Methylprednisolone [Medrol Dose Pack (21 tabs)] 4 mg PO DAILY #21 mg Multimineral/Multivitamin [Therapeutic-M Tab] 1 tab PO DAILY #30 tab Promethazine [Phenergan Syrup] 12.5 mg PO Q6 PRN #14 dose PRN Reason: Cough Valsartan [Diovan] 320 mg PO DAILY #30 tab guaiFENesin/Dextromethorphan [Mucinex-DM 600-30 mg] 1 tab PO BID #14 tab - Follow Up Plan Condition: FAIR Disposition: HOME/ ROUTINE Instructions: Heart Failure (DC), COPD (Chronic Obstructive Pulmonary Disease) (DC) Additional Instructions: pt. cleared for discharge to Home today by , and Rx for meds sent to [facility] pt. instructed to fu at [facility] Referrals: [facility] [Outside] <Joel Caruso - Last Filed: 01/27/17 10:39> Provider - Provider Date of Admission: 01/23/17 10:37 Attending physician: Joel Caruso MD Hospital Course - Lab Results Lab Results: Most Recent Lab Values WBC 8.4 K/uL (4.8-10.8) 01/26/17 04:30 RBC 3.59 Mil/uL (4.40-5.90) L 01/26/17 04:30 Hgb 11.0 g/dL (12.0-18.0) L 01/26/17 04:30 Hct 32.9 % (35.0-51.0) L 01/26/17 04:30 MCV 91.4 fl (80.0-94.0) 01/26/17 04:30 MCH 30.6 pg (27.0-31.0) 01/26/17 04:30 MCHC 33.4 g/dL (33.0-37.0) 01/26/17 04:30 RDW 13.9 % (11.5-14.5) 01/26/17 04:30 Plt Count 196 K/uL (130-400) 01/26/17 04:30 MPV 9.1 fl (7.2-11.7) 01/22/17 12:50 Neut % (Auto) 57.2 % (50.0-75.0) 01/22/17 12:50 Lymph % (Auto) 20.1 % (20.0-40.0) 01/22/17 12:50 [place] % (Auto) 14.1 % (0.0-10.0) H 01/22/17 12:50 Eos % (Auto) 7.4 % (0.0-4.0) H 01/22/17 12:50 Baso % (Auto) 1.2 % (0.0-2.0) 01/22/17 12:50 Neut # 3.8 K/uL (1.8-7.0) 01/22/17 12:50 Lymph # 1.4 K/uL (1.0-4.3) 01/22/17 12:50 [place] # 0.9 K/uL (0.0-0.8) H 01/22/17 12:50 Eos # 0.5 K/uL (0.0-0.7) 01/22/17 12:50 Baso # 0.1 K/uL (0.0-0.2) 01/22/17 12:50 PT 12.7 Seconds (9.8-13.1) 01/22/17 12:50 INR 1.1 (0.9-1.2) 01/22/17 12:50 APTT 37.9 Seconds (25.6-37.1) H 01/22/17 12:50 pCO2 38 mm/Hg (35-45) 01/22/17 17:39 pO2 66 mm/Hg (80-100) L 01/22/17 17:39 HCO3 23.5 mmol/L (21-28) 01/22/17 17:39 ABG pH 7.39 (7.35-7.45) 01/22/17 17:39 ABG Total CO2 24.2 mmol/L (22-28) 01/22/17 17:39 ABG O2 Saturation 96.8 % (95-98) 01/22/17 17:39 ABG O2 Content 17.9 ML/dL (15-23) 01/22/17 17:39 ABG Base Excess -1.7 mmol/L (-2.0-3.0) 01/22/17 17:39 ABG Hemoglobin 13.7 g/dL (11.7-17.4) 01/22/17 17:39 ABG Carboxyhemoglobin 2.6 % (0.5-1.5) H 01/22/17 17:39 POC ABG HHb (Measured) 3.1 % (0.0-5.0) 01/22/17 17:39 ABG Methemoglobin 1.3 % (0.0-3.0) 01/22/17 17:39 ABG O2 Capacity 18.5 mL/dL (16-24) 01/22/17 17:39 Russell Test Yes 01/22/17 17:39 A-a O2 Difference 36.0 mm/Hg 01/22/17 17:39 Hgb O2 Saturation 93.0 % (95.0-98.0) L 01/22/17 17:39 FiO2 21.0 % 01/22/17 17:39 Sodium 139 mmol/l (132-148) 01/26/17 04:30 Potassium 3.5 MMOL/L (3.6-5.0) L 01/26/17 04:30 Chloride 100 mmol/L (98-107) 01/26/17 04:30 Carbon Dioxide 28 mmol/L (22-30) 01/26/17 04:30 Anion Gap 15 (10-20) 01/26/17 04:30 BUN 47 mg/dl (9-20) H 01/26/17 04:30 Creatinine 1.4 mg/dl (0.8-1.5) 01/26/17 04:30 Est GFR ( Amer) 60 01/26/17 04:30 Est GFR (Non-Af Amer) 49 01/26/17 04:30 POC Glucose (mg/dL) 199 mg/dL (65-110) H 01/27/17 05:24 Random Glucose 176 mg/dL (75-110) H 01/26/17 04:30 Calcium 7.9 mg/dL (8.4-10.2) L 01/26/17 04:30 Total Bilirubin 0.4 mg/dl (0.2-1.3) 01/25/17 04:25 AST 16 U/L (17-59) L 01/25/17 04:25 ALT 33 U/L (21-72) 01/25/17 04:25 Alkaline Phosphatase 121 U/L (38-126) 01/25/17 04:25 Troponin I < 0.0120 ng/mL (0.00-0.120) 01/23/17 06:41 NT-Pro-B Natriuret Pep 1730 pg/ml (0-900) H 01/22/17 12:50 Total Protein 6.7 G/DL (6.3-8.2) 01/25/17 04:25 Albumin 4.0 g/dL (3.5-5.0) 01/25/17 04:25 Globulin 2.7 gm/dL (2.2-3.9) 01/25/17 04:25 Albumin/Globulin Ratio 1.5 (1.0-2.1) 01/25/17 04:25
--- NOTE | 2017-01-26 16:25 | CP.PCM.PN ---
Subjective - Date & Time of Evaluation Date of Evaluation: 01/26/17 Time of Evaluation: 09:40 - Subjective Subjective: F/U COPD Exacerbation. Pt with minimal chest congestion. Objective - Vital Signs/Intake and Output Vital Signs (last 24 hours): Temp Pulse Resp BP Pulse Ox 97.7 F 69 20 159/74 H 96 01/26/17 15:46 01/26/17 15:46 01/26/17 15:46 01/26/17 15:46 01/26/17 15:46 - Medications Medications: Current Medications Albuterol/Ipratropium (Duoneb 3 Mg/0.5 Mg (3 Ml) Ud) 3 ml INH RQ4 [facility] Last Admin: 01/26/17 15:03 Dose: 3 ml Apixaban (Eliquis) 5 mg PO BID [facility] PRN Reason: Protocol Last Admin: 01/26/17 08:49 Dose: 5 mg Aspirin (Aspirin Chewable) 81 mg PO DAILY [facility] Last Admin: 01/26/17 08:48 Dose: 81 mg Atorvastatin Calcium (Lipitor) 40 mg PO DAILY [facility] Last Admin: 01/26/17 08:50 Dose: 40 mg Carvedilol (Coreg) 25 mg PO Q12H [facility] Last Admin: 01/26/17 05:21 Dose: 25 mg Dextrose (Dextrose 50% Inj) 0 ml IV STAT PRN; Protocol PRN Reason: Hypoglycemia Protocol Dextrose (Glutose 15) 0 gm PO ONCE PRN; Protocol PRN Reason: Hypoglycemia Protocol Folic Acid (Folic Acid) 1 mg PO DAILY [facility] Last Admin: 01/26/17 08:49 Dose: 1 mg Furosemide (Lasix) 40 mg IV BID [facility] Last Admin: 01/26/17 08:49 Dose: 40 mg Glucagon (Glucagen Diagnostic Kit) 0 mg IM STAT PRN; Protocol PRN Reason: Hypoglycemia Protocol Guaifenesin/Dextromethorphan (Mucinex-Dm 600-30 Mg) 1 tab PO BID [facility] Last Admin: 01/26/17 08:51 Dose: 1 tab Insulin Human Regular (Humulin R) 0 units SC ACHS [facility] PRN Reason: Protocol Last Admin: 01/26/17 13:00 Dose: Not Given Methylprednisolone (Solu-Medrol) 40 mg IVP Q8 [facility] Last Admin: 01/26/17 08:51 Dose: 40 mg Multivitamins/Minerals (Therapeutic-M Tab) 1 tab PO DAILY [facility] Last Admin: 01/26/17 08:51 Dose: 1 tab Promethazine HCl (Phenergan Syrup) 12.5 mg PO Q6 PRN PRN Reason: Cough Last Admin: 01/26/17 06:46 Dose: 12.5 mg Valsartan (Diovan) 320 mg PO DAILY [facility] Last Admin: 01/26/17 08:49 Dose: 320 mg - Labs Labs: 01/26/17 04:30 01/26/17 04:30 PT 12.7 Seconds (9.8-13.1) 01/22/17 12:50 INR 1.1 (0.9-1.2) 01/22/17 12:50 APTT 37.9 Seconds (25.6-37.1) H 01/22/17 12:50 - Constitutional Appears: No Acute Distress - Head Exam Head Exam: NORMAL INSPECTION - Eye Exam Eye Exam: PERRL - ENT Exam ENT Exam: Normal Exam - Neck Exam Neck Exam: Normal Inspection - Respiratory Exam Respiratory Exam: Decreased Breath Sounds (at bases), Rhonchi (few at bases) - Cardiovascular Exam Cardiovascular Exam: Irregular Rhythm Additional comments: Sternotomy scar. - GI/Abdominal Exam GI & Abdominal Exam: Soft, Normal Bowel Sounds - Extremities Exam Extremities Exam: Pedal Edema (trace.) - Back Exam Back Exam: NORMAL INSPECTION - Neurological Exam Neurological Exam: Alert, Oriented x3. absent: Motor Sensory Deficit - Psychiatric Exam Psychiatric exam: Normal Mood - Skin Skin Exam: Warm Assessment and Plan (1) COPD exacerbation Assessment & Plan: Improved. Status: Acute (2) CHF (congestive heart failure) Status: Acute (3) Atrial fibrillation Status: Chronic (4) Hx of CABG Status: Chronic - Assessment and Plan (Free Text) Plan: Continue Duoneb, Solumedrol, Mucinex.
[2017-01-27] MEDS: MethylPREDNISolone 40 mg Vial IVP SCH ×2 (00:18→08:41)
[2017-01-27] MEDS: Albuterol-Ipratrop 3 mg / 0.5 (3 ml) UD INH SCH ×4 (05:00→15:44)
[2017-01-27] MEDS: Insulin Regular 100 units/ml SC SCH ×3 (06:32→17:38)
[2017-01-27] MEDS: Promethazine 12.5 mg/10 ml Syrup PO PRN ×2 (08:38→17:36)
[2017-01-27] MEDS: guaiFENesin-DM 600-30 mg ER Tab PO SCH ×2 (08:40→17:36)
[2017-01-27] MEDS: Multivitamin With Minerals Tab PO SCH (08:41)
--- NOTE | 2017-01-27 14:34 | CP.PCM.PN ---
Subjective - Date & Time of Evaluation Date of Evaluation: 01/27/17 Time of Evaluation: 14:25 - Subjective Subjective: Patient seen and examined with attending. Pateient still has mild wheezing, decreased breath sounds. His breathing is improved. Seen with PT, ambulating with walker. Steady gait. Patient is on solumedrol, will taper down today. he has hyperglycemia secondary to solumedrol Stable for transfer to med/surg Objective - Vital Signs/Intake and Output Vital Signs (last 24 hours): Temp Pulse Resp BP Pulse Ox 97.6 F 72 18 150/76 95 01/27/17 12:00 01/27/17 12:00 01/27/17 12:00 01/27/17 12:00 01/27/17 12:00 - Medications Medications: Current Medications Albuterol/Ipratropium (Duoneb 3 Mg/0.5 Mg (3 Ml) Ud) 3 ml INH RQ4 [facility] Last Admin: 01/27/17 11:01 Dose: 3 ml Apixaban (Eliquis) 5 mg PO BID [facility] PRN Reason: Protocol Last Admin: 01/27/17 08:39 Dose: 5 mg Aspirin (Aspirin Chewable) 81 mg PO DAILY [facility] Last Admin: 01/27/17 08:38 Dose: 81 mg Atorvastatin Calcium (Lipitor) 40 mg PO DAILY [facility] Last Admin: 01/27/17 08:40 Dose: 40 mg Carvedilol (Coreg) 25 mg PO Q12H [facility] Last Admin: 01/27/17 04:24 Dose: 25 mg Dextrose (Dextrose 50% Inj) 0 ml IV STAT PRN; Protocol PRN Reason: Hypoglycemia Protocol Dextrose (Glutose 15) 0 gm PO ONCE PRN; Protocol PRN Reason: Hypoglycemia Protocol Folic Acid (Folic Acid) 1 mg PO DAILY [facility] Last Admin: 01/27/17 08:39 Dose: 1 mg Furosemide (Lasix) 40 mg IV BID [facility] Last Admin: 01/27/17 08:39 Dose: 40 mg Glucagon (Glucagen Diagnostic Kit) 0 mg IM STAT PRN; Protocol PRN Reason: Hypoglycemia Protocol Guaifenesin/Dextromethorphan (Mucinex-Dm 600-30 Mg) 1 tab PO BID [facility] Last Admin: 01/27/17 08:40 Dose: 1 tab Insulin Human Regular (Humulin R) 0 units SC ACHS [facility] PRN Reason: Protocol Last Admin: 01/27/17 06:32 Dose: Not Given Methylprednisolone (Solu-Medrol) 40 mg IVP Q8 [facility] Last Admin: 01/27/17 08:41 Dose: 40 mg Multivitamins/Minerals (Therapeutic-M Tab) 1 tab PO DAILY [facility] Last Admin: 01/27/17 08:41 Dose: 1 tab Promethazine HCl (Phenergan Syrup) 12.5 mg PO Q6 PRN PRN Reason: Cough Last Admin: 01/27/17 08:38 Dose: 12.5 mg Valsartan (Diovan) 320 mg PO DAILY [facility] Last Admin: 01/27/17 08:39 Dose: 320 mg - Labs Labs: 01/26/17 04:30 01/26/17 04:30 PT 12.7 Seconds (9.8-13.1) 01/22/17 12:50 INR 1.1 (0.9-1.2) 01/22/17 12:50 APTT 37.9 Seconds (25.6-37.1) H 01/22/17 12:50 - Constitutional Appears: Non-toxic, No Acute Distress - Head Exam Head Exam: ATRAUMATIC, NORMAL INSPECTION, NORMOCEPHALIC - Eye Exam Eye Exam: EOMI, Normal appearance, PERRL - Respiratory Exam Respiratory Exam: Decreased Breath Sounds, Wheezes (mild), NORMAL BREATHING PATTERN - Cardiovascular Exam Cardiovascular Exam: +S1, +S2 - Neurological Exam Neurological Exam: Alert, Awake, CN II-XII Intact - Psychiatric Exam Psychiatric exam: Normal Affect, Normal Mood - Skin Skin Exam: Dry, Intact Assessment and Plan (1) COPD exacerbation Assessment & Plan: 76 year old male with hx of COPD, CHF with reduced EF, HLD, AFIB admitted for COPD exacerbation. Chest CT reviewed. Labs reviewed. on prednisone and duonebs imroving Status: Acute (2) CHF exacerbation Assessment & Plan: Pro bnp elevateD: >1700 cardiology is following, resume home medications last echo: July 2016: EF 45-50%, mildly reduced LV function, LVH, systolic function mildly impaired Status: Acute (3) Atrial fibrillation Assessment & Plan: stable, on eliquis/coreg Status: Chronic (4) HTN (hypertension) Assessment & Plan: controlled -continue home medications Status: Chronic
--- NOTE | 2017-01-27 15:25 | CP.PCM.PN ---
Subjective - Date & Time of Evaluation Date of Evaluation: 01/27/17 Time of Evaluation: 10:50 - Subjective Subjective: F/U COPD Exacerbation. Pt with no SOB, chest congestion improved, still with productive cough, bringing up scanty amount of phlegms. Objective - Vital Signs/Intake and Output Vital Signs (last 24 hours): Temp Pulse Resp BP Pulse Ox 97.6 F 72 18 150/76 95 01/27/17 12:00 01/27/17 12:00 01/27/17 12:00 01/27/17 12:00 01/27/17 12:00 - Medications Medications: Current Medications Albuterol/Ipratropium (Duoneb 3 Mg/0.5 Mg (3 Ml) Ud) 3 ml INH RQ4 [facility] Last Admin: 01/27/17 11:01 Dose: 3 ml Apixaban (Eliquis) 5 mg PO BID [facility] PRN Reason: Protocol Last Admin: 01/27/17 08:39 Dose: 5 mg Aspirin (Aspirin Chewable) 81 mg PO DAILY [facility] Last Admin: 01/27/17 08:38 Dose: 81 mg Atorvastatin Calcium (Lipitor) 40 mg PO DAILY [facility] Last Admin: 01/27/17 08:40 Dose: 40 mg Carvedilol (Coreg) 25 mg PO Q12H [facility] Last Admin: 01/27/17 04:24 Dose: 25 mg Dextrose (Dextrose 50% Inj) 0 ml IV STAT PRN; Protocol PRN Reason: Hypoglycemia Protocol Dextrose (Glutose 15) 0 gm PO ONCE PRN; Protocol PRN Reason: Hypoglycemia Protocol Folic Acid (Folic Acid) 1 mg PO DAILY [facility] Last Admin: 01/27/17 08:39 Dose: 1 mg Furosemide (Lasix) 40 mg IV BID [facility] Last Admin: 01/27/17 08:39 Dose: 40 mg Glucagon (Glucagen Diagnostic Kit) 0 mg IM STAT PRN; Protocol PRN Reason: Hypoglycemia Protocol Guaifenesin/Dextromethorphan (Mucinex-Dm 600-30 Mg) 1 tab PO BID [facility] Last Admin: 01/27/17 08:40 Dose: 1 tab Insulin Human Regular (Humulin R) 0 units SC ACHS [facility] PRN Reason: Protocol Last Admin: 01/27/17 11:30 Dose: Not Given Methylprednisolone (Solu-Medrol) 40 mg IVP DAILY [facility] Multivitamins/Minerals (Therapeutic-M Tab) 1 tab PO DAILY [facility] Last Admin: 01/27/17 08:41 Dose: 1 tab Promethazine HCl (Phenergan Syrup) 12.5 mg PO Q6 PRN PRN Reason: Cough Last Admin: 01/27/17 08:38 Dose: 12.5 mg Valsartan (Diovan) 320 mg PO DAILY [facility] Last Admin: 01/27/17 08:39 Dose: 320 mg - Labs Labs: 01/26/17 04:30 01/26/17 04:30 PT 12.7 Seconds (9.8-13.1) 01/22/17 12:50 INR 1.1 (0.9-1.2) 01/22/17 12:50 APTT 37.9 Seconds (25.6-37.1) H 01/22/17 12:50 - Constitutional Appears: No Acute Distress - Head Exam Head Exam: NORMAL INSPECTION - Eye Exam Eye Exam: PERRL - ENT Exam ENT Exam: Normal Exam - Neck Exam Neck Exam: Normal Inspection - Respiratory Exam Respiratory Exam: Decreased Breath Sounds (at bases), Rhonchi (few at bases) - Cardiovascular Exam Cardiovascular Exam: Irregular Rhythm Additional comments: Sternotomy scar - GI/Abdominal Exam GI & Abdominal Exam: Soft, Normal Bowel Sounds - Extremities Exam Extremities Exam: Pedal Edema (trace) - Back Exam Back Exam: NORMAL INSPECTION - Neurological Exam Neurological Exam: Alert, Oriented x3. absent: Motor Sensory Deficit - Psychiatric Exam Psychiatric exam: Normal Mood - Skin Skin Exam: Warm Assessment and Plan (1) COPD exacerbation Assessment & Plan: Improved. Status: Acute (2) CHF (congestive heart failure) Status: Acute (3) Atrial fibrillation Status: Chronic (4) Hx of CABG Status: Chronic - Assessment and Plan (Free Text) Plan: Continue Duoneb, Solumedro 30 od, Mucinex, Pt is going to be transferred to [facility], I will follow Pt in that facility.
[2017-01-27 15:44] VITALS: BP 157/80; PULSE 74; RESP 20; TEMP 97.8; O2SAT 93
[2017-01-28] MEDS ORDERED: MethylPREDNISolone 40 mg Vial IVP SCH (09:00)
== END 2017-01-27 18:25 | DRG 291 ==
LOC: H.ER 12:12 → H.ERHOLD 14:48 → H.TEL 15:54 → OBSVTOIN 01-23 10:37 → H.TEL 01-27 14:47
PROVIDERS: ADMIT Internal Medicine; ATTEND Internal Medicine
DX: I13.0 Hypertensive heart and chronic kidney disease with heart failure and stage 1 through stage 4 chronic kidney disease, or unspecified chronic kidney disease (principal); I50.23 Acute on chronic systolic (congestive) heart failure; E11.22 Type 2 diabetes mellitus with diabetic chronic kidney disease; F03.90 Unspecified dementia, unspecified severity, without behavioral disturbance, psychotic disturbance, mood disturbance, and anxiety; J44.1 Chronic obstructive pulmonary disease with (acute) exacerbation; I48.2 Chronic atrial fibrillation; Z95.1 Presence of aortocoronary bypass graft; N18.9 Chronic kidney disease, unspecified; I25.10 Atherosclerotic heart disease of native coronary artery without angina pectoris; Z86.73 Personal history of transient ischemic attack (TIA), and cerebral infarction without residual deficits; E78.00 Pure hypercholesterolemia, unspecified; Z91.14 Patient's other noncompliance with medication regimen; Z87.891 Personal history of nicotine dependence; K29.70 Gastritis, unspecified, without bleeding; E66.3 Overweight; Z68.34 Body mass index [BMI] 34.0-34.9, adult; M19.90 Unspecified osteoarthritis, unspecified site; T38.0X5A Adverse effect of glucocorticoids and synthetic analogues, initial encounter; E11.65 Type 2 diabetes mellitus with hyperglycemia; E78.5 Hyperlipidemia, unspecified; E87.5 Hyperkalemia

== ENCOUNTER 2017-02-09 18:57 | Inpatient (IN) | payer MEDICARE, BC ==
[2017-02-09 18:57] VITALS: BMI 32.4
[2017-02-09] MEDS ORDERED: Nitroglycerin 2% Ointment Foilpak UD TOP STA (20:15)
[2017-02-09 20:22] LABS: VENOUS BLOOD GAS BASE EXCESS 1.4 mmol/L (0.0-2.0); VENOUS BLOOD GAS PCO2 52 mmHg (40-60); VENOUS BLOOD PH 7.34 (7.32-7.43)
[2017-02-09] MEDS ORDERED: Nitroglycerin 2% Ointment Foilpak UD TOP ONE (20:32)
[2017-02-09 20:36] LABS: BASO # 0.1 K/uL (0.0-0.2); BASO % 0.8 % (0.0-2.0); EOS # 0.3 K/uL (0.0-0.7); EOS % 3.4 % (0.0-4.0); HEMATOCRIT 34.9 % (35.0-51.0); LYMPH # 1.2 K/uL (1.0-4.3); LYMPH % 12.2 % (20.0-40.0); MEAN CELL VOLUME 93.5 fl (80.0-94.0); MEAN CORPUSCULAR HEMOGLOBIN 30.3 pg (27.0-31.0); MEAN CORPUSCULAR HGB CONC 32.4 g/dL (33.0-37.0); MEAN PLATELET VOLUME 9.4 fl (7.2-11.7); MONO # 1.2 K/uL (0.0-0.8); MONO % 12.3 % (0.0-10.0); NEUT # 7.2 K/uL (1.8-7.0); NEUT % 71.3 % (50.0-75.0); RED CELL DISTRIBUTION WIDTH 13.6 % (11.5-14.5); WHITE BLOOD COUNT 10.1 K/uL (4.8-10.8)
--- NOTE | 2017-02-09 20:58 | ED PDOC ---
HPI: Chest Pain Time Seen by Provider: 02/09/17 19:21 Chief Complaint (Nursing): Chest Pain Chief Complaint (Provider): Chest pain History Per: Patient History/Exam Limitations: no limitations Onset/Duration Of Symptoms: Days (1) Additional Complaint(s): Patient is a 76 y/o male with a past medical history of hypertension, coronary artery disease, atrial fibrillation, congestive heart failure, open heart surgery, and COPD presenting to the emergency department for intermittent upper chest pain ongoing for one day that is not modified by activity or position. Notes associated mild shortness of breath. Denies current chest pain, nausea, vomiting, diaphoresis, radiating pain, or other complaints. PCP: Dr. Dony Sotelo Past Medical History Reviewed: Historical Data, Nursing Documentation, Vital Signs Vital Signs: Last Vital Signs Temp 98.1 F 02/09/17 23:45 Pulse 91 H 02/10/17 01:40 Resp 18 02/10/17 01:40 BP 138/80 02/10/17 00:47 Pulse Ox 99 02/10/17 01:40 - Medical History PMH: Arthritis, Atrial Fibrillation, Bronchitis, CAD, CHF, COPD, CVA (mild), Dementia, Diabetes (type II), Gastritis, HTN, Hypercholesterolemia, Pneumonia, Chronic Kidney Disease (renal failure) Denies: HIV - Surgical History Surgical History: CABG (in 2005) - Family History Family History: States: Unknown Family Hx, CAD, Diabetes (father) - Immunization History Hx Tetanus Toxoid Vaccination: No Hx Influenza Vaccination: Yes Hx Pneumococcal Vaccination: No - Home Medications Home Medications: Ambulatory Orders Medication Instructions Recorded Albuterol/Ipratropium [Duoneb 3 3 ml INH RQ6 10/22/16 mg/0.5 mg (3 ml) UD] Apixaban [Eliquis] 5 mg PO BID #60 tablet 01/26/17 Aspirin [Aspirin Chewable] 81 mg PO DAILY #30 chew 01/26/17 Atorvastatin [Lipitor] 40 mg PO DAILY #30 tab 01/26/17 Carvedilol [Coreg] 25 mg PO Q12H #60 tab 01/26/17 Folic Acid 1 mg PO DAILY #30 tab 01/26/17 Furosemide [Lasix] 40 mg PO DAILY #30 tab 01/26/17 Multimineral/Multivitamin 1 tab PO DAILY #30 tab 01/26/17 [Therapeutic-M Tab] Promethazine [Phenergan Syrup] 12.5 mg PO Q6 PRN #14 dose 01/26/17 Valsartan [Diovan] 320 mg PO DAILY #30 tab 01/26/17 methylPREDNISolone [Solu-MEDROL] 40 mg IV Q8 #9 ml 01/27/17 - Allergies Allergies/Adverse Reactions: Allergies Allergy/AdvReac Type Severity Reaction Status Date / Time amlodipine [From [facility]] AdvReac NAUSEA Verified 01/22/17 14:18 Review of Systems ROS Statement: Except As Marked, All Systems Reviewed And Found Negative Constitutional: Negative for: Other (diaphoresis) Cardiovascular: Positive for: Chest Pain (intermittent, upper, non-radiating) Respiratory: Positive for: Shortness of Breath (mild) Gastrointestinal: Negative for: Nausea, Vomiting Physical Exam - Reviewed Nursing Documentation Reviewed: Yes Vital Signs Reviewed: Yes - Physical Exam Appears: Positive for: Well, Non-toxic, No Acute Distress Head Exam: Positive for: ATRAUMATIC, NORMAL INSPECTION, NORMOCEPHALIC Skin: Positive for: Normal Color, Warm, Dry Eye Exam: Positive for: Normal appearance Neck: Positive for: Normal Cardiovascular/Chest: Positive for: Regular Rate, Rhythm. Negative for: Murmur Respiratory: Positive for: Rales (bases, bilaterally). Negative for: Normal Breath Sounds, Respiratory Distress Gastrointestinal/Abdominal: Positive for: Normal Exam, Soft. Negative for: Tenderness Extremity: Positive for: Normal ROM, Other (1+ edema bilateral lower extremity ) Neurologic/Psych: Positive for: Alert, Oriented (x3) - Laboratory Results Result Diagrams: 02/09/17 20:15 02/09/17 19:30 - ECG O2 Sat by Pulse Oximetry: 95 (RA) Pulse Ox Interpretation: Normal - Radiology X-Ray: Interpreted by Me, Viewed By Me X-Ray Interpretation: Cardiomegaly (mild) Medical Decision Making Medical Decision Making: Time: 19:30 Initial impression: Patient is a 76 male with chest pain in setting of known CAD and CHF. Initial plan: EKG Labs: BNP, CMP, Troponin Chest x-ray Nitroglycerin Blood culture Reevaluation 21:22 Patient will be admitted. Reviewed labs which were clinically significant for elevated Pro-B. The chest x-ray revealed mild cardiomegaly. Patient will be placed under hospital observation for chest pain. Discussed with Joaquin Myles NP for [facility]. Scribe Attestation: Documented by Shante Jonas, acting as a scribe for Alex Esqueda MD. Provider Scribe Attestation: All medical record entries made by the Scribe were at my direction and personally dictated by me. I have reviewed the chart and agree that the record accurately reflects my personal performance of the history, physical exam, medical decision making, and the department course for this patient. I have also personally directed, reviewed, and agree with the discharge instructions and disposition. Disposition - Clinical Impression Clinical Impression: Chest pain, CHF (congestive heart failure) - Patient ED Disposition Is Patient to be Admitted: Yes Comment: Abdullahi Myles NP Counseled Patient/Family Regarding: Studies Performed, Diagnosis - Disposition Disposition Time: 21:00 Condition: STABLE - Pt Status Changed To: Hospital Disposition Of: Observation
[2017-02-09 21:06] LABS: ALB/GLOB RATIO 1.3 (1.0-2.1); ALKALINE PHOSPHATASE 81 U/L (38-126); ALT/SGPT 35 U/L (21-72); AST/SGOT 28 U/L (17-59); BILIRUBIN,TOTAL 0.9 mg/dl (0.2-1.3); BLOOD UREA NITROGEN 35 mg/dl (9-20); CALCIUM 8.3 mg/dL (8.4-10.2); CARBON DIOXIDE 27 mmol/L (22-30); CHLORIDE 104 mmol/L (98-107); GFR AFRICAN-AMERICAN 48; GLUCOSE,RANDOM 122 mg/dL (75-110); POTASSIUM 4.8 MMOL/L (3.6-5.0); SODIUM 139 mmol/l (132-148); TOTAL PROTEIN 6.3 G/DL (6.3-8.2)
[2017-02-09] MEDS ORDERED: Albuterol-Ipratrop 3 mg / 0.5 (3 ml) UD INH STA (21:20)
[2017-02-09] MEDS ORDERED: Promethazine/Cod 6.25mg-10mg/5ml Syr UD PO STA (21:20)
[2017-02-10] MEDS: Albuterol-Ipratrop 3 mg / 0.5 (3 ml) UD INH SCH ×5 (00:18→19:09)
[2017-02-10 06:20] LABS: BASO # 0.1 K/uL (0.0-0.2); BASO % 0.7 % (0.0-2.0); EOS # 0.3 K/uL (0.0-0.7); EOS % 2.1 % (0.0-4.0); HEMATOCRIT 36.9 % (35.0-51.0); LYMPH # 0.9 K/uL (1.0-4.3); LYMPH % 6.8 % (20.0-40.0); MEAN CELL VOLUME 92.7 fl (80.0-94.0); MEAN CORPUSCULAR HEMOGLOBIN 30.3 pg (27.0-31.0); MEAN CORPUSCULAR HGB CONC 32.7 g/dL (33.0-37.0); MEAN PLATELET VOLUME 9.8 fl (7.2-11.7); MONO # 1.2 K/uL (0.0-0.8); MONO % 8.4 % (0.0-10.0); NEUT # 11.5 K/uL (1.8-7.0); PLATELET COUNT 142 K/uL (130-400); RED CELL DISTRIBUTION WIDTH 13.9 % (11.5-14.5)
[2017-02-10 06:33] LABS: TROPONIN I 0.014 ng/mL (0.00-0.120)
[2017-02-10 06:36] LABS: ALB/GLOB RATIO 1.3 (1.0-2.1); BILIRUBIN,TOTAL 1.6 mg/dl (0.2-1.3); CALCIUM 8.6 mg/dL (8.4-10.2); POTASSIUM 4.5 MMOL/L (3.6-5.0); TOTAL PROTEIN 7.2 G/DL (6.3-8.2)
[2017-02-10 07:35] LABS: EOSINOPHIL 1 % (0-7); NEUTROPHIL 87 % (42-75); TOTAL CELLS COUNTED 100
--- NOTE | 2017-02-10 08:42 | CP.PCM.HP ---
History of Present Illness - History of Present Illness History of Present Illness: pt admitted for cp, chf. c/o dyspnea at rest. no f/c, n/v/d. bw noted. pt had recent admission and multiple admission for same over past couple months. Present on Admission - Present on Admission Any Indicators Present on Admission: No Review of Systems - Cardiovascular Cardiovascular: As Per HPI, Chest Pain - Respiratory Respiratory: As Per HPI, Cough, Dyspnea on Exertion Past Patient History - Tetanus Immunizations Tetanus Immunization: Unknown - Past Medical History & Family History Past Medical History?: Yes - Past Social History Smoking Status: Former Smoker - CARDIAC Hx Atrial Fibrillation: Yes Hx Congestive Heart Failure: Yes Hx Hypercholesterolemia: Yes Hx Hypertension: Yes - PULMONARY Hx Bronchitis: Yes Hx Chronic Obstructive Pulmonary Disease (COPD): Yes Hx Pneumonia: Yes - NEUROLOGICAL Hx Dementia: Yes - HEENT Hx HEENT Problems: Yes (Wear eyeglasses.) - RENAL Hx Chronic Kidney Disease: Yes (renal failure) - ENDOCRINE/METABOLIC Hx Endocrine Disorders: No - HEMATOLOGICAL/ONCOLOGICAL Hx Human Immunodeficiency Virus (HIV): No - INTEGUMENTARY Hx Dermatological Problems: No - MUSCULOSKELETAL/RHEUMATOLOGICAL Hx Arthritis: Yes - GASTROINTESTINAL Hx Gastritis: Yes - GENITOURINARY/GYNECOLOGICAL Hx Genitourinary Disorders: No - PSYCHIATRIC Hx Psychophysiologic Disorder: No Hx Substance Use: No - SURGICAL HISTORY Hx Coronary Artery Bypass Graft: Yes (in 2005) - ANESTHESIA Hx Anesthesia: Yes Hx Anesthesia Reactions: No Hx Malignant Hyperthermia: No Has any member of the family had a problem w/ anesthesia?: No Meds Allergies/Adverse Reactions: Allergies Allergy/AdvReac Type Severity Reaction Status Date / Time amlodipine [From Norvas] AdvReac NAUSEA Verified 01/22/17 14:18 Physical Exam - Constitutional Appears: Well, Non-toxic, No Acute Distress - Head Exam Head Exam: ATRAUMATIC, NORMAL INSPECTION, NORMOCEPHALIC - Eye Exam Eye Exam: EOMI, Normal appearance, PERRL Pupil Exam: NORMAL ACCOMODATION, PERRL - ENT Exam ENT Exam: Mucous Membranes Moist, Normal Exam - Neck Exam Neck exam: Positive for: Normal Inspection - Respiratory Exam Respiratory Exam: Prolonged Expiratory Phase, Wheezes, NORMAL BREATHING PATTERN - Cardiovascular Exam Cardiovascular Exam: REGULAR RHYTHM, RRR, +S1, +S2 - GI/Abdominal Exam GI & Abdominal Exam: Normal Bowel Sounds, Soft. absent: Tenderness - Extremities Exam Extremities exam: Positive for: full ROM, normal capillary refill, normal inspection, pedal pulses present - Back Exam Back exam: NORMAL INSPECTION - Neurological Exam Neurological exam: Alert, CN II-XII Intact, Normal Gait, Oriented x3, Reflexes Normal - Psychiatric Exam Psychiatric exam: Normal Affect, Normal Mood - Skin Skin Exam: Dry, Intact, Normal Color, Warm Results - Vital Signs Recent Vital Signs: Last Vital Signs Temp 97.9 F 02/10/17 04:58 Pulse 85 02/10/17 04:58 Resp 18 02/10/17 04:58 BP 135/67 02/10/17 04:58 Pulse Ox 94 L 02/10/17 04:58 - Labs Result Diagrams: 02/10/17 05:00 02/10/17 05:00 Labs: Laboratory Results - last 24 hr 02/09/17 02/09/17 02/09/17 19:30 19:34 20:15 WBC 10.1 RBC 3.74 L Hgb 11.3 L Hct 34.9 L MCV 93.5 D MCH 30.3 MCHC 32.4 L RDW 13.6 Plt Count 125 L D MPV 9.4 Neut % (Auto) 71.3 Lymph % (Auto) 12.2 L [place] % (Auto) 12.3 H Eos % (Auto) 3.4 Baso % (Auto) 0.8 Neut # 7.2 H Lymph # 1.2 [place] # 1.2 H Eos # 0.3 Baso # 0.1 Neutrophils % (Manual) Lymphocytes % (Manual) Monocytes % (Manual) Eosinophils % (Manual) Poikilocytosis (manual Anisocytosis (manual) Ovalocytes pO2 VBG pH VBG pCO2 VBG HCO3 VBG Total CO2 VBG O2 Sat (Calc) VBG Base Excess VBG Potassium Glucose Lactate FiO2 Sodium 139 Potassium 4.8 Chloride 104 Carbon Dioxide 27 Anion Gap 13 BUN 35 H Creatinine 1.7 H Est GFR ( Amer) 48 Est GFR (Non-Af Amer) 39 POC Glucose (mg/dL) Random Glucose 122 H Calcium 8.3 L Total Bilirubin 0.9 AST 28 ALT 35 Alkaline Phosphatase 81 Troponin I < 0.0120 NT-Pro-B Natriuret Pep 2260 H Total Protein 6.3 Albumin 3.5 Globulin 2.8 Albumin/Globulin Ratio 1.3 Venous Blood Potassium Influenza Typ A,B (EIA) Negative for flu a/b 02/09/17 02/10/17 02/10/17 20:19 05:00 05:00 WBC 14.0 H RBC 3.99 L Hgb 12.1 Hct 36.9 MCV 92.7 MCH 30.3 MCHC 32.7 L RDW 13.9 Plt Count 142 MPV 9.8 Neut % (Auto) 82.0 H Lymph % (Auto) 6.8 L [place] % (Auto) 8.4 Eos % (Auto) 2.1 Baso % (Auto) 0.7 Neut # 11.5 H Lymph # 0.9 L [place] # 1.2 H Eos # 0.3 Baso # 0.1 Neutrophils % (Manual) 87 H Lymphocytes % (Manual) 4 L Monocytes % (Manual) 8 Eosinophils % (Manual) 1 Poikilocytosis (manual Slight Anisocytosis (manual) Slight Ovalocytes Slight pO2 27 L VBG pH 7.34 VBG pCO2 52 VBG HCO3 24.6 VBG Total CO2 29.7 H VBG O2 Sat (Calc) 54.1 VBG Base Excess 1.4 VBG Potassium 4.3 Glucose 124 H Lactate 1.2 FiO2 21.0 Sodium 136.0 136 Potassium 4.5 Chloride 105.0 103 Carbon Dioxide 24 Anion Gap 14 BUN 32 H Creatinine 1.8 H Est GFR ( Amer) 45 Est GFR (Non-Af Amer) 37 POC Glucose (mg/dL) Random Glucose 138 H Calcium 8.6 Total Bilirubin 1.6 H AST 16 L D ALT 38 Alkaline Phosphatase 86 Troponin I 0.0140 NT-Pro-B Natriuret Pep 2080 H Total Protein 7.2 Albumin 4.0 Globulin 3.2 Albumin/Globulin Ratio 1.3 Venous Blood Potassium 4.3 Influenza Typ A,B (EIA) 02/10/17 05:24 WBC RBC Hgb Hct MCV MCH MCHC RDW Plt Count MPV Neut % (Auto) Lymph % (Auto) [place] % (Auto) Eos % (Auto) Baso % (Auto) Neut # Lymph # [place] # Eos # Baso # Neutrophils % (Manual) Lymphocytes % (Manual) Monocytes % (Manual) Eosinophils % (Manual) Poikilocytosis (manual Anisocytosis (manual) Ovalocytes pO2 VBG pH VBG pCO2 VBG HCO3 VBG Total CO2 VBG O2 Sat (Calc) VBG Base Excess VBG Potassium Glucose Lactate FiO2 Sodium Potassium Chloride Carbon Dioxide Anion Gap BUN Creatinine Est GFR ( Amer) Est GFR (Non-Af Amer) POC Glucose (mg/dL) 141 H Random Glucose Calcium Total Bilirubin AST ALT Alkaline Phosphatase Troponin I NT-Pro-B Natriuret Pep Total Protein Albumin Globulin Albumin/Globulin Ratio Venous Blood Potassium Influenza Typ A,B (EIA) Assessment & Plan (1) DVT prophylaxis Assessment and Plan: scd and ae hose ambulation eliquis Status: Acute (2) CHF (congestive heart failure) Assessment and Plan: lasix iv cardio tele Status: Acute (3) Chest pain Assessment and Plan: trops, cardio asa, pt on eliquis Status: Acute (4) Atrial fibrillation with controlled ventricular response Assessment and Plan: anticoag, rate control cardio Status: Acute (5) COPD (chronic obstructive pulmonary disease) Assessment and Plan: solu-medrol duoneb phenergen, mucinex Status: Acute Decision To Admit - Pt Status Changed To: Hospital Disposition Of: Observation - . Bed Request Type: Telemetry Admitting Physician: Janay Gutierrez
[2017-02-10] MEDS ORDERED: methylPREDNISolone 60 MG in Sodium Chloride 0.9% 50 ML IVPB SCH (09:00)
[2017-02-10] MEDS: guaiFENesin-DM 600-30 mg ER Tab PO SCH ×2 (09:18→18:21)
[2017-02-10] MEDS: Multivitamin With Minerals Tab PO SCH (09:18)
--- NOTE | 2017-02-10 10:12 | RAD ---
HISTORY: cough COMPARISON: Chest radiograph dated 01/22/2017 TECHNIQUE: Chest PA and lateral FINDINGS: LUNGS: No active pulmonary disease. PLEURA: No significant pleural effusion identified. No pneumothorax apparent. CARDIOVASCULAR: Prior sternotomy with sternal wires and surgical clips redemonstrated. Atherosclerotic aortic calcifications. Cardiomediastinal silhouette stably prominent. . OSSEOUS STRUCTURES: Old right-sided rib fractures redemonstrated. Osseous structures, unchanged. VISUALIZED UPPER ABDOMEN: Normal. OTHER FINDINGS: None. IMPRESSION: No active disease.
--- NOTE | 2017-02-10 10:37 | CARD ---
APPROVED REPORT EKG Measurement Heart [id number] <Conclusion> Atrial fibrillation Abnormal ECG
--- NOTE | 2017-02-10 17:29 | CP.PCM.CON ---
History of Present Illness - History of Present Illness History of Present Illness: Patient is a 76 year old male with history of CAD s/p CABG, HTN, afib who presents with chest pain. The patient had a previous stress test in November and was noted to have normal perfusion. He presents with dyspnea and sybsternal chest discomfort. The patient is a poor historian. Family is present at the bedside. Review of Systems - Constitutional Constitutional: absent: As Per HPI, Anorexia, Chills, Daytime Sleepiness, Excessive Sweating, Fatigue, Fever, Frequent Falls, Headache, Increased Appetite , Lethargy, Malaise, Night Sweats, Snoring, Sleep Apnea, Weight Gain, Weight Loss, Weakness, Other - EENT Eyes: absent: As Per HPI, Blind Spots, Blurred Vision, Change in Vision, Decreased Night Vision, Diplopia, Discharge, Dry Eye, Exophthalmos, Floaters, Irritation, Itchy Eyes, Loss of Peripheral Vision, Pain, Photophobia, Requires Corrective Lenses, Sees Flashes, Spots in Vision, Tunnel Vision, Other Visual Disturbances, Loss of Vision, Other Ears: absent: As Per HPI, Decreased Hearing, Ear Discharge, Ear Pain, Tinnitus, Abnormal Hearing, Disequilibrium, Dizziness, Other Nose/Mouth/Throat: absent: As Per HPI, Epistaxis, Nasal Congestion, Nasal Discharge, Nasal Obstruction, Nasal Trauma, Nose Pain, Post Nasal Drip, Sinus Pain, Sinus Pressure, Bleeding Gums, Change in Voice, Dental Pain, Dry Mouth, Dysphagia, Halitosis, Hoarsness, Lip Swelling, Mouth Lesions, Mouth Pain, Odynophagia, Sore Throat, Throat Swelling, Tongue Swelling, Facial Pain, Neck Pain, Neck Mass, Other - Cardiovascular Cardiovascular: Chest Pain - Respiratory Respiratory: absent: As Per HPI, Cough, Dyspnea, Hemoptysis, Dyspnea on Exertion , Wheezing, Snoring, Stridor, Pain on Inspiration, Chest Congestion, Excessive Mucous Production, Change in Mucous Color, Pain with Coughing, Other - Gastrointestinal Gastrointestinal: absent: As Per HPI, Abdominal Pain, Belching, Bloating, Change in Bowel Habits, Change in Stool Character, Coffee Ground Emesis, Constipation, Cramping, Diarrhea, Dyspepsia, Dysphagia, Early Satiety, Excessive Flatus, Fecal Incontinence, Heartburn, Hematemesis, Hematochezia, Loose Stools, Melena, Nausea, Odynophagia, Temesmus, Vomiting, Other - Musculoskeletal Musculoskeletal: absent: As Per HPI, Abnormal Gait, Arthralgias, Atrophy, Back Pain, Deformity, Joint Swelling, Limited Range of Motion, Loss of Height, Muscle Cramps, Muscle Weakness, Myalgias, Neck Pain, Numbness, Radiating Pain into Limb, Stiffness, Tingling, Other - Integumentary Integumentary: absent: As Per HPI, Acne, Alopecia, Bleeding Lesions, Change in Hair, Change in Nails, Change in Pigmentation, Changing Lesions, Dry Skin, Erythema, Furuncle, Hirsutism, Lesions, New Lesions, Non-Healing Lesions, Photosensitivity, Pruritus, Rash, Skin Pain, Skin Ulcer, Sores, Striae, Swelling , Unusual Bruising, Wounds, Jaundice, Other - Neurological Neurological: absent: As Per HPI, Abnormal Gait, Abnormal Hearing, Abnormal Movements, Abnormal Speech, Behavioral Changes, Burning Sensations, Confusion, Convulsions, Disequilibrium, Dizziness, Numbness, Focal Weakness, Frequent Falls , Headaches, Lack of Coordination, Loss of Vision, Memory Loss, Paresthesias, Radicular Pain, Restless Legs, Sensory Deficit, Syncope, Tingling, Tremor, Vertigo, Weakness, Other Visual Disturbances, Other - Psychiatric Psychiatric: absent: As Per HPI, Abnormal Sleep Pattern, Anhedonia, Anxiety, Auditory Hallucinations, Behavioral Changes, Change in Appetite, Change in Libido, Confusion, Depression, Difficulty Concentrating, Hallucinations, Homicidal Ideation, Hopelessness, Irritability, Memory Loss, Mood Swings, Panic Attacks, Paranoia, Suicidal Ideation, Visual Hallucinations, Tactile Hallucinations, Other - Endocrine Endocrine: absent: As Per HPI, Change in Body Appearance, Change in Libido, Cold Intolorance, Deepening of Voice, Excessive Sweating, Fatigue, Flushing, Heat Intolorance, Increase in Ring/Shoe/Hat Size, Palpitations, Polydipsia, Polyphagia, Polyuria, Other - Hematologic/Lymphatic Hematologic: absent: As Per HPI, Easy Bleeding, Easy Bruising, Lymphadenopathy, Other Past Patient History - Tetanus Immunizations Tetanus Immunization: Unknown - Past Medical History & Family History Past Medical History?: Yes - Past Social History Smoking Status: Former Smoker - CARDIAC Hx Cardiac Disorders: Yes Hx Congestive Heart Failure: Yes Hx Hypercholesterolemia: Yes Hx Hypertension: Yes - PULMONARY Hx Bronchitis: Yes Hx Chronic Obstructive Pulmonary Disease (COPD): Yes Hx Pneumonia: Yes - NEUROLOGICAL HX Cerebrovascular Accident: Yes - HEENT Hx HEENT Problems: Yes (Wear eyeglasses.) - RENAL Hx Chronic Kidney Disease: Yes (renal failure) - ENDOCRINE/METABOLIC Hx Endocrine Disorders: No - HEMATOLOGICAL/ONCOLOGICAL Hx Human Immunodeficiency Virus (HIV): No - INTEGUMENTARY Hx Dermatological Problems: No - MUSCULOSKELETAL/RHEUMATOLOGICAL Hx Arthritis: Yes - GASTROINTESTINAL Hx Gastritis: Yes - GENITOURINARY/GYNECOLOGICAL Hx Genitourinary Disorders: No - PSYCHIATRIC Hx Psychophysiologic Disorder: No Hx Substance Use: No - SURGICAL HISTORY Hx Coronary Artery Bypass Graft: Yes (in 2005) - ANESTHESIA Hx Anesthesia: Yes Hx Anesthesia Reactions: No Hx Malignant Hyperthermia: No Has any member of the family had a problem w/ anesthesia?: No Meds Allergies/Adverse Reactions: Allergies Allergy/AdvReac Type Severity Reaction Status Date / Time amlodipine [From [facility]] AdvReac NAUSEA Verified 01/22/17 14:18 - Medications Medications: Current Medications Albuterol/Ipratropium (Duoneb 3 Mg/0.5 Mg (3 Ml) Ud) 3 ml INH RQ6 [facility] Last Admin: 02/10/17 13:42 Dose: 3 ml Apixaban (Eliquis) 5 mg PO BID [facility] PRN Reason: Protocol Last Admin: 02/10/17 09:17 Dose: 5 mg Aspirin (Aspirin Chewable) 81 mg PO DAILY [facility] Last Admin: 02/10/17 09:16 Dose: 81 mg Atorvastatin Calcium (Lipitor) 40 mg PO DAILY [facility] Last Admin: 02/10/17 09:18 Dose: 40 mg Carvedilol (Coreg) 25 mg PO Q12H [facility] Last Admin: 02/10/17 09:17 Dose: 25 mg Folic Acid (Folic Acid) 1 mg PO DAILY [facility] Last Admin: 02/10/17 09:18 Dose: 1 mg Furosemide (Lasix) 40 mg IVP DAILY [facility] Last Admin: 02/10/17 10:54 Dose: 40 mg Guaifenesin/Dextromethorphan (Mucinex-Dm 600-30 Mg) 1 tab PO BID [facility] Last Admin: 02/10/17 09:18 Dose: 1 tab Methylprednisolone (Solu-Medrol) 60 mg IVP Q12 [facility] Last Admin: 02/10/17 10:54 Dose: 60 mg Multivitamins/Minerals (Therapeutic-M Tab) 1 tab PO DAILY [facility] Last Admin: 02/10/17 09:18 Dose: 1 tab Promethazine HCl (Phenergan Syrup) 12.5 mg PO Q6 PRN PRN Reason: Cough Valsartan (Diovan) 320 mg PO DAILY [facility] Last Admin: 02/10/17 09:17 Dose: 320 mg Physical Exam - Constitutional Appears: Non-toxic - Head Exam Head Exam: NORMAL INSPECTION - Eye Exam Eye Exam: Normal appearance - ENT Exam ENT Exam: Mucous Membranes Moist - Neck Exam Neck exam: Positive for: Full Rom - Respiratory Exam Respiratory Exam: NORMAL BREATHING PATTERN - Cardiovascular Exam Cardiovascular Exam: Irregular Rhythm - GI/Abdominal Exam GI & Abdominal Exam: Normal Bowel Sounds - Rectal Exam Rectal Exam: Deferred - Extremities Exam Extremities exam: Positive for: pedal edema - Back Exam Back exam: NORMAL INSPECTION - Neurological Exam Neurological exam: Alert, Oriented x3 - Psychiatric Exam Psychiatric exam: Normal Affect - Skin Skin Exam: Normal Color Results - Vital Signs Recent Vital Signs: Last Vital Signs Temp 98.1 F 02/10/17 15:57 Pulse 80 02/10/17 15:57 Resp 20 02/10/17 15:57 BP 108/63 02/10/17 15:57 Pulse Ox 96 02/10/17 15:57 - Labs Result Diagrams: 02/10/17 05:00 02/10/17 05:00 Labs: Laboratory Results - last 24 hr 02/09/17 02/09/17 02/09/17 19:30 19:34 20:15 WBC 10.1 RBC 3.74 L Hgb 11.3 L Hct 34.9 L MCV 93.5 D MCH 30.3 MCHC 32.4 L RDW 13.6 Plt Count 125 L D MPV 9.4 Neut % (Auto) 71.3 Lymph % (Auto) 12.2 L [place] % (Auto) 12.3 H Eos % (Auto) 3.4 Baso % (Auto) 0.8 Neut # 7.2 H Lymph # 1.2 [place] # 1.2 H Eos # 0.3 Baso # 0.1 Neutrophils % (Manual) Lymphocytes % (Manual) Monocytes % (Manual) Eosinophils % (Manual) Platelet Estimate Poikilocytosis (manual Anisocytosis (manual) Ovalocytes pO2 VBG pH VBG pCO2 VBG HCO3 VBG Total CO2 VBG O2 Sat (Calc) VBG Base Excess VBG Potassium Glucose Lactate FiO2 Sodium 139 Potassium 4.8 Chloride 104 Carbon Dioxide 27 Anion Gap 13 BUN 35 H Creatinine 1.7 H Est GFR ( Amer) 48 Est GFR (Non-Af Amer) 39 POC Glucose (mg/dL) Random Glucose 122 H Calcium 8.3 L Total Bilirubin 0.9 AST 28 ALT 35 Alkaline Phosphatase 81 Troponin I < 0.0120 NT-Pro-B Natriuret Pep 2260 H Total Protein 6.3 Albumin 3.5 Globulin 2.8 Albumin/Globulin Ratio 1.3 Venous Blood Potassium Influenza Typ A,B (EIA) Negative for flu a/b 02/09/17 02/10/17 02/10/17 20:19 05:00 05:00 WBC 14.0 H RBC 3.99 L Hgb 12.1 Hct 36.9 MCV 92.7 MCH 30.3 MCHC 32.7 L RDW 13.9 Plt Count 142 MPV 9.8 Neut % (Auto) 82.0 H Lymph % (Auto) 6.8 L [place] % (Auto) 8.4 Eos % (Auto) 2.1 Baso % (Auto) 0.7 Neut # 11.5 H Lymph # 0.9 L [place] # 1.2 H Eos # 0.3 Baso # 0.1 Neutrophils % (Manual) 87 H Lymphocytes % (Manual) 4 L Monocytes % (Manual) 8 Eosinophils % (Manual) 1 Platelet Estimate Normal Poikilocytosis (manual Slight Anisocytosis (manual) Slight Ovalocytes Slight pO2 27 L VBG pH 7.34 VBG pCO2 52 VBG HCO3 24.6 VBG Total CO2 29.7 H VBG O2 Sat (Calc) 54.1 VBG Base Excess 1.4 VBG Potassium 4.3 Glucose 124 H Lactate 1.2 FiO2 21.0 Sodium 136.0 136 Potassium 4.5 Chloride 105.0 103 Carbon Dioxide 24 Anion Gap 14 BUN 32 H Creatinine 1.8 H Est GFR ( Amer) 45 Est GFR (Non-Af Amer) 37 POC Glucose (mg/dL) Random Glucose 138 H Calcium 8.6 Total Bilirubin 1.6 H AST 16 L D ALT 38 Alkaline Phosphatase 86 Troponin I 0.0140 NT-Pro-B Natriuret Pep 2080 H Total Protein 7.2 Albumin 4.0 Globulin 3.2 Albumin/Globulin Ratio 1.3 Venous Blood Potassium 4.3 Influenza Typ A,B (EIA) 02/10/17 02/10/17 05:24 12:01 WBC RBC Hgb Hct MCV MCH MCHC RDW Plt Count MPV Neut % (Auto) Lymph % (Auto) [place] % (Auto) Eos % (Auto) Baso % (Auto) Neut # Lymph # [place] # Eos # Baso # Neutrophils % (Manual) Lymphocytes % (Manual) Monocytes % (Manual) Eosinophils % (Manual) Platelet Estimate Poikilocytosis (manual Anisocytosis (manual) Ovalocytes pO2 VBG pH VBG pCO2 VBG HCO3 VBG Total CO2 VBG O2 Sat (Calc) VBG Base Excess VBG Potassium Glucose Lactate FiO2 Sodium Potassium Chloride Carbon Dioxide Anion Gap BUN Creatinine Est GFR ( Amer) Est GFR (Non-Af Amer) POC Glucose (mg/dL) 141 H Random Glucose Calcium Total Bilirubin AST ALT Alkaline Phosphatase Troponin I 0.0160 NT-Pro-B Natriuret Pep Total Protein Albumin Globulin Albumin/Globulin Ratio Venous Blood Potassium Influenza Typ A,B (EIA) - EKG Data EKG Interpreted by: Myself Assessment & Plan (1) Chest pain Assessment and Plan: normal myocardial perfusion . I will attempt medical therapy . add nitrates. if recurrenc michael pain or nitrates, will consider cardiac cath. Status: Acute (2) Atrial fibrillation with controlled ventricular response Assessment and Plan: rate is controlled. Status: Acute (3) CHF (congestive heart failure) Assessment and Plan: echo Status: Acute Priority: High
[2017-02-10] MEDS: Promethazine 12.5 mg/10 ml Syrup PO PRN (21:31)
[2017-02-11] MEDS: Albuterol-Ipratrop 3 mg / 0.5 (3 ml) UD INH SCH ×3 (01:18→13:40)
[2017-02-11 06:21] LABS: BASO % 0.1 % (0.0-2.0); EOS % 0.1 % (0.0-4.0); HEMATOCRIT 32.5 % (35.0-51.0); LYMPH # 0.6 K/uL (1.0-4.3); LYMPH % 7.1 % (20.0-40.0); MEAN CELL VOLUME 92.7 fl (80.0-94.0); MEAN CORPUSCULAR HEMOGLOBIN 30.2 pg (27.0-31.0); MEAN CORPUSCULAR HGB CONC 32.5 g/dL (33.0-37.0); MEAN PLATELET VOLUME 9.4 fl (7.2-11.7); MONO # 0.2 K/uL (0.0-0.8); MONO % 1.9 % (0.0-10.0); NEUT # 7.5 K/uL (1.8-7.0); NEUT % 90.8 % (50.0-75.0); PLATELET COUNT 138 K/uL (130-400); RED CELL DISTRIBUTION WIDTH 13.8 % (11.5-14.5); WHITE BLOOD COUNT 8.3 K/uL (4.8-10.8)
[2017-02-11 06:43] LABS: ALB/GLOB RATIO 1.2 (1.0-2.1); BILIRUBIN,TOTAL 0.9 mg/dl (0.2-1.3); CALCIUM 8.2 mg/dL (8.4-10.2); TOTAL PROTEIN 6.5 G/DL (6.3-8.2)
[2017-02-11 07:52] VITALS: RESP 18
[2017-02-11] MEDS: Multivitamin With Minerals Tab PO SCH (08:38)
[2017-02-11] MEDS: guaiFENesin-DM 600-30 mg ER Tab PO SCH (08:38)
[2017-02-11] MEDS: Promethazine 12.5 mg/10 ml Syrup PO PRN (08:39)
--- NOTE | 2017-02-11 09:40 | CARD ---
APPROVED REPORT EXAM: Two-dimensional and M-mode echocardiogram with Doppler and color Doppler. Other Information Quality : FairRhythm : NSR Technically limited study due to .body habitus and CABG. INDICATION Congestive Heart Failure Surgery/Intervention CABD DIMENSIONS IVSd1.53 (0.7-1.1cm)LVDd4.05 (3.9-5.9cm) LVOT Diameter2.12 (1.8-2.4cm)PWd0.64 (0.7-1.1cm) IVSs1.29 (0.8-1.2cm)LVDs4.25 (2.5-4.0cm) FS (%) 4.9 %PWs0.68 (0.8-1.2cm) M-Mode DIMENSIONS Left Atrium (MM)5.39 (2.5-4.0cm)Aortic Root2.98 (2.2-3.7cm) Aortic Cusp Exc.1.59 (1.5-2.0cm) Mitral Valve E/A ratio0.0 TDI E/Lateral E'0.0E/Medial E'0.0 Tricuspid Valve TR Peak [id number]/sRAP [id number] Peak Gr.20mmHg [id number] LEFT VENTRICLE The left ventricle is normal size. There is normal left ventricular wall thickness. The systolic function is moderately impaired. The Ejection Fraction is 40-45%. There is global hypokinesis of the left ventricle. The left ventricular diastolic function is normal. No left ventricle thrombus noted on this study. There is no mass noted in the left ventricle. RIGHT VENTRICLE The right ventricle is normal size. There is normal right ventricular wall thickness. The right ventricular systolic function is normal. ATRIA The left atrium size is normal. The right atrium size is normal. AORTIC VALVE The aortic valve is mildly calcified. No aortic regurgitation is present. There is no aortic valvular stenosis. MITRAL VALVE The mitral valve is normal in structure. There is no mitral valve stenosis. There is no mitral valve regurgitation noted. TRICUSPID VALVE The tricuspid valve is normal in structure. There is no tricuspid valve regurgitation noted. There is no tricuspid valve stenosis. PULMONIC VALVE The pulmonary valve is normal in structure. There is no pulmonic valvular regurgitation. There is no pulmonic valvular stenosis. GREAT VESSELS The aortic root is normal in size. The IVC is normal in size and collapses >50% with inspiration. PERICARDIAL EFFUSION The pericardium appears normal. <Conclusion> The left ventricle is normal size. The systolic function is moderately impaired. The Ejection Fraction is 40-45%. The aortic valve is mildly calcified.
--- NOTE | 2017-02-11 09:50 | CP.PCM.DIS ---
Provider - Provider Date of Admission: 02/09/17 21:08 Attending physician: Janay Gutierrez MD Time Spent in preparation of Discharge (in minutes): 15 Diagnosis - Discharge Diagnosis (1) DVT prophylaxis Status: Acute (2) CHF (congestive heart failure) Status: Acute (3) Chest pain Status: Acute (4) Atrial fibrillation with controlled ventricular response Status: Acute (5) COPD (chronic obstructive pulmonary disease) Status: Acute Hospital Course - Lab Results Lab Results: Micro Results 02/09/17 19:30 Blood-Venous Blood Culture - Preliminary NO GROWTH AFTER 24 HOURS 02/09/17 19:30 Blood-Venous Blood Culture - Preliminary NO GROWTH AFTER 24 HOURS Most Recent Lab Values WBC 8.3 K/uL (4.8-10.8) 02/11/17 05:30 RBC 3.50 Mil/uL (4.40-5.90) L 02/11/17 05:30 Hgb 10.6 g/dL (12.0-18.0) L 02/11/17 05:30 Hct 32.5 % (35.0-51.0) L 02/11/17 05:30 MCV 92.7 fl (80.0-94.0) 02/11/17 05:30 MCH 30.2 pg (27.0-31.0) 02/11/17 05:30 MCHC 32.5 g/dL (33.0-37.0) L 02/11/17 05:30 RDW 13.8 % (11.5-14.5) 02/11/17 05:30 Plt Count 138 K/uL (130-400) 02/11/17 05:30 MPV 9.4 fl (7.2-11.7) 02/11/17 05:30 Neut % (Auto) 90.8 % (50.0-75.0) H 02/11/17 05:30 Lymph % (Auto) 7.1 % (20.0-40.0) L 02/11/17 05:30 [place] % (Auto) 1.9 % (0.0-10.0) 02/11/17 05:30 Eos % (Auto) 0.1 % (0.0-4.0) 02/11/17 05:30 Baso % (Auto) 0.1 % (0.0-2.0) 02/11/17 05:30 Neut # 7.5 K/uL (1.8-7.0) H 02/11/17 05:30 Lymph # 0.6 K/uL (1.0-4.3) L 02/11/17 05:30 [place] # 0.2 K/uL (0.0-0.8) 02/11/17 05:30 Eos # 0.0 K/uL (0.0-0.7) 02/11/17 05:30 Baso # 0.0 K/uL (0.0-0.2) 02/11/17 05:30 Neutrophils % (Manual) 87 % (42-75) H 02/10/17 05:00 Lymphocytes % (Manual) 4 % (20-50) L 02/10/17 05:00 Monocytes % (Manual) 8 % (0-10) 02/10/17 05:00 Eosinophils % (Manual) 1 % (0-7) 02/10/17 05:00 Platelet Estimate Normal (NORMAL) 02/10/17 05:00 Poikilocytosis (manual Slight 02/10/17 05:00 Anisocytosis (manual) Slight 02/10/17 05:00 Ovalocytes Slight 02/10/17 05:00 pO2 27 mm/Hg (30-55) L 02/09/17 20:19 VBG pH 7.34 (7.32-7.43) 02/09/17 20:19 VBG pCO2 52 mmHg (40-60) 02/09/17 20:19 VBG HCO3 24.6 mmol/L 02/09/17 20:19 VBG Total CO2 29.7 mmol/L (22-28) H 02/09/17 20:19 VBG O2 Sat (Calc) 54.1 % (40-65) 02/09/17 20:19 VBG Base Excess 1.4 mmol/L (0.0-2.0) 02/09/17 20:19 VBG Potassium 4.3 mmol/L (3.6-5.2) 02/09/17 20:19 Sodium 136.0 mmol/L (132-148) 02/09/17 20:19 Chloride 105.0 mmol/L (98-107) 02/09/17 20:19 Glucose 124 mg/dL (75-110) H 02/09/17 20:19 Lactate 1.2 mmol/L (0.7-2.1) 02/09/17 20:19 FiO2 21.0 % 02/09/17 20:19 Sodium 134 mmol/l (132-148) 02/11/17 05:30 Potassium 5.0 MMOL/L (3.6-5.0) 02/11/17 05:30 Chloride 99 mmol/L (98-107) 02/11/17 05:30 Carbon Dioxide 26 mmol/L (22-30) 02/11/17 05:30 Anion Gap 14 (10-20) 02/11/17 05:30 BUN 50 mg/dl (9-20) H 02/11/17 05:30 Creatinine 2.0 mg/dl (0.8-1.5) H 02/11/17 05:30 Est GFR ( Amer) 40 02/11/17 05:30 Est GFR (Non-Af Amer) 33 02/11/17 05:30 POC Glucose (mg/dL) 141 mg/dL (65-110) H 02/10/17 05:24 Random Glucose 195 mg/dL (75-110) H 02/11/17 05:30 Calcium 8.2 mg/dL (8.4-10.2) L 02/11/17 05:30 Total Bilirubin 0.9 mg/dl (0.2-1.3) 02/11/17 05:30 AST 15 U/L (17-59) L 02/11/17 05:30 ALT 30 U/L (21-72) 02/11/17 05:30 Alkaline Phosphatase 70 U/L (38-126) 02/11/17 05:30 Troponin I 0.0160 ng/mL (0.00-0.120) 02/10/17 12:01 NT-Pro-B Natriuret Pep 2080 pg/ml (0-900) H 02/10/17 05:00 Total Protein 6.5 G/DL (6.3-8.2) 02/11/17 05:30 Albumin 3.5 g/dL (3.5-5.0) 02/11/17 05:30 Globulin 2.9 gm/dL (2.2-3.9) 02/11/17 05:30 Albumin/Globulin Ratio 1.2 (1.0-2.1) 02/11/17 05:30 Venous Blood Potassium 4.3 mmol/L (3.6-5.2) 02/09/17 20:19 Influenza Typ A,B (EIA) Negative for flu a/b (NEGATIVE) 02/09/17 19:34 Discharge Exam - Head Exam Head Exam: ATRAUMATIC, NORMAL INSPECTION, NORMOCEPHALIC - Eye Exam Eye Exam: EOMI, Normal appearance, PERRL Pupil Exam: NORMAL ACCOMODATION, PERRL - Respiratory Exam Respiratory Exam: Clear to PA & Lateral, NORMAL BREATHING PATTERN, UNREMARKABLE - Cardiovascular Exam Cardiovascular Exam: REGULAR RHYTHM, RRR, +S1, +S2 - GI/Abdominal Exam GI & Abdominal Exam: Normal Bowel Sounds, Soft, Unremarkable - Extremities Exam Extremities exam: full ROM, normal capillary refill, normal inspection, pedal pulses present - Back Exam Back exam: NORMAL INSPECTION - Neurological Exam Neurological exam: Alert, CN II-XII Intact, Normal Gait, Oriented x3, Reflexes Normal - Psychiatric Exam Psychiatric exam: Normal Affect, Normal Mood - Skin Skin Exam: Dry, Intact, Normal Color, Warm Discharge Plan - Discharge Medications Prescriptions: Isosorbide Mononitrate ER [Imdur ER] 30 mg PO DAILY #30 tab predniSONE [predniSONE Tab] 10 mg PO DAILY #21 tab - Follow Up Plan Condition: STABLE Disposition: HOME/ ROUTINE Instructions: Heart Failure (DC) Additional Instructions: follow up with Dr. Kincaid on tuesday 6 @ 11am. doing well w/o distress. no dyspnea, cp, no ble edema. no f/c, n/v/d. cleared by cardio for dc. meds esccribed fianl dx-acute on chronic systolic chf, cp, copd Referrals: Joaquin Myles, DNP, [employer] [Advanced Practice Nurse] - Gerardo Kincaid MD [Staff Provider] -
[2017-02-11 11:20] LABS: NEUTROPHIL 87 % (42-75); TOTAL CELLS COUNTED 100
[2017-02-11 11:50] VITALS: BP 111/62; PULSE 88; TEMP 97.2; O2SAT 95
== END 2017-02-11 15:45 | disposition home or self-care (01) | DRG 291 ==
LOC: H.ER 18:57 → INTOOBSV 21:08 → H.ERHOLD 21:08 → OBSVTOIN 21:08 → H.TEL 22:51 → OBSVTOIN 02-10 19:49 → INTOOBSV 02-10 20:02 → OBSVTOIN 02-10 20:02
PROVIDERS: ADMIT Family Medicine; ATTEND Family Medicine
DX: I13.0 Hypertensive heart and chronic kidney disease with heart failure and stage 1 through stage 4 chronic kidney disease, or unspecified chronic kidney disease (principal); I50.23 Acute on chronic systolic (congestive) heart failure; I48.91 Unspecified atrial fibrillation; J44.9 Chronic obstructive pulmonary disease, unspecified; I25.10 Atherosclerotic heart disease of native coronary artery without angina pectoris; F03.90 Unspecified dementia, unspecified severity, without behavioral disturbance, psychotic disturbance, mood disturbance, and anxiety; E11.22 Type 2 diabetes mellitus with diabetic chronic kidney disease; N18.9 Chronic kidney disease, unspecified; E78.00 Pure hypercholesterolemia, unspecified; Z79.01 Long term (current) use of anticoagulants; Z86.73 Personal history of transient ischemic attack (TIA), and cerebral infarction without residual deficits; Z87.01 Personal history of pneumonia (recurrent); Z95.1 Presence of aortocoronary bypass graft; Z87.891 Personal history of nicotine dependence

== ENCOUNTER 2017-02-13 21:17 | Inpatient (IN) | payer MEDICARE, BC ==
[2017-02-13 21:22] VITALS: BMI 29.1
[2017-02-13] MEDS ORDERED: Albuterol-Ipratrop 3 mg / 0.5 (3 ml) UD INH STA ×3 (21:36→22:37)
[2017-02-13 22:08] LABS: BASO % 0.1 % (0.0-2.0); EOS # 0.3 K/uL (0.0-0.7); EOS % 3.5 % (0.0-4.0); HEMATOCRIT 33.5 % (35.0-51.0); LYMPH # 1.5 K/uL (1.0-4.3); LYMPH % 19.2 % (20.0-40.0); MEAN CELL VOLUME 92.5 fl (80.0-94.0); MEAN CORPUSCULAR HEMOGLOBIN 30.3 pg (27.0-31.0); MEAN CORPUSCULAR HGB CONC 32.7 g/dL (33.0-37.0); MEAN PLATELET VOLUME 9.3 fl (7.2-11.7); MONO # 1.1 K/uL (0.0-0.8); MONO % 14.2 % (0.0-10.0); WHITE BLOOD COUNT 7.9 K/uL (4.8-10.8)
[2017-02-13] MEDS ORDERED: Albuterol-Ipratrop 3 mg / 0.5 (3 ml) UD ONE (22:12)
[2017-02-13 22:28] LABS: ALB/GLOB RATIO 1.2 (1.0-2.1); ALKALINE PHOSPHATASE 81 U/L (38-126); ALT/SGPT 44 U/L (21-72); AST/SGOT 20 U/L (17-59); BILIRUBIN,TOTAL 0.3 mg/dl (0.2-1.3); BLOOD UREA NITROGEN 52 mg/dl (9-20); CALCIUM 8.1 mg/dL (8.4-10.2); CARBON DIOXIDE 28 mmol/L (22-30); CHLORIDE 103 mmol/L (98-107); GFR AFRICAN-AMERICAN 51; GLUCOSE,RANDOM 114 mg/dL (75-110); POTASSIUM 4.9 MMOL/L (3.6-5.0); SODIUM 139 mmol/l (132-148); TOTAL PROTEIN 6.5 G/DL (6.3-8.2)
[2017-02-13] MEDS ORDERED: Magnesium Sulfate 2 GM in Sodium Chloride 0.9% 100 ML IV STA (22:36)
[2017-02-13] MEDS ORDERED: Magnesium Sulfate 2 gm/50 ml 2 GM/50 ML BAG ONE (22:39)
--- NOTE | 2017-02-13 22:48 | ED PDOC ---
HPI: SOB/CHF/COPD Time Seen by Provider: 02/13/17 21:24 Chief Complaint (Nursing): Respiratory Distress Chief Complaint (Provider): shortness of breath and wheezing History Per: Patient History/Exam Limitations: no limitations Onset/Duration Of Symptoms: Days Current Symptoms Are (Timing): Still Present Additional Complaint(s): Darwin Tsang, a 76 y/o old male, with a past medical history of congestive heart failure, atrial fibrillation, COPD and asthma presents to the ED complaining of shortness of breath, wheezing and cough. The patient reports that he was admitted to the facility for chest pain observation and was discharged after a 48 hour admission. He states that he was great today until he developed the cough, shortness of breath and wheezing. As per patient, he did not use his inhaler as he felt that he was too short of breath. The patient states that 911 was called and he was given duoneb and solumedrol 25 IV. in Ed patient verbalizes a sensation of tightness sin his chest. PMD: [place] - Risk Factors PE Risk Factors: Pos: CHF Past Medical History Reviewed: Historical Data, Nursing Documentation, Vital Signs Vital Signs: Last Vital Signs Temp 97.6 F 02/17/17 00:11 Pulse 67 02/17/17 00:11 Resp 20 02/17/17 00:11 BP 159/79 H 02/17/17 00:11 Pulse Ox 96 02/17/17 00:11 - Medical History PMH: Arthritis, Atrial Fibrillation, Bronchitis, CAD, CHF, COPD, CVA (mild), Dementia, Diabetes (type II), Gastritis, HTN, Hypercholesterolemia, Pneumonia, Chronic Kidney Disease (renal failure) Denies: HIV - Surgical History Surgical History: CABG (in 2005) - Family History Family History: States: Unknown Family Hx, CAD, Diabetes (father) - Living Arrangements Living Arrangements: With Family - Social History Current smoker - smoking cessation education provided: No Ex-Smoker (has not smoked in the last 12 months): No Alcohol: None Drugs: Denies - Immunization History Hx Tetanus Toxoid Vaccination: No Hx Influenza Vaccination: Yes Hx Pneumococcal Vaccination: No - Home Medications Home Medications: Ambulatory Orders Medication Instructions Recorded Albuterol/Ipratropium [Duoneb 3 3 ml INH RQ6 10/22/16 mg/0.5 mg (3 ml) UD] Apixaban [Eliquis] 5 mg PO BID #60 tablet 01/26/17 Aspirin [Aspirin Chewable] 81 mg PO DAILY #30 chew 01/26/17 Atorvastatin [Lipitor] 40 mg PO DAILY #30 tab 01/26/17 Carvedilol [Coreg] 25 mg PO Q12H #60 tab 01/26/17 Folic Acid 1 mg PO DAILY #30 tab 01/26/17 Furosemide [Lasix] 40 mg PO DAILY #30 tab 01/26/17 Multimineral/Multivitamin 1 tab PO DAILY #30 tab 01/26/17 [Therapeutic-M Tab] Promethazine [Phenergan Syrup] 12.5 mg PO Q6 PRN #14 dose 01/26/17 Valsartan [Diovan] 320 mg PO DAILY #30 tab 01/26/17 Isosorbide Mononitrate ER [Imdur 30 mg PO DAILY #30 tab 02/11/17 ER] Budesonide/Formoterol Fumarate 1 aer IH BID #1 aer 02/15/17 [Symbicort] predniSONE [predniSONE Tab] 10 mg PO DAILY #12 tab 02/15/17 - Allergies Allergies/Adverse Reactions: Allergies Allergy/AdvReac Type Severity Reaction Status Date / Time amlodipine [From [facility]] AdvReac NAUSEA Verified 02/13/17 21:22 Review of Systems ROS Statement: Except As Marked, All Systems Reviewed And Found Negative Respiratory: Positive for: Cough, Shortness of Breath, Wheezing Physical Exam - Reviewed Nursing Documentation Reviewed: Yes Vital Signs Reviewed: Yes - Physical Exam Appears: Positive for: Non-toxic, No Acute Distress Head Exam: Positive for: ATRAUMATIC, NORMAL INSPECTION, NORMOCEPHALIC Skin: Positive for: Normal Color, Warm, Dry. Negative for: Rash Eye Exam: Positive for: Normal appearance, EOMI, PERRL. Negative for: Nystagmus ENT: Positive for: Normal ENT Inspection. Negative for: Nasal Congestion, Tonsillar Exudate, Tonsillar Swelling Neck: Positive for: Normal, Painless ROM, Supple Cardiovascular/Chest: Positive for: Regular Rate, Rhythm, Chest Non Tender. Negative for: Tachycardia Respiratory: Positive for: Normal Breath Sounds, Wheezing (bilateral diffuse expiatory wheezing with poor air entry ), Respiratory Distress (mild). Negative for: Rales, Rhonchi Gastrointestinal/Abdominal: Positive for: Normal Exam, Bowel Sounds, Soft. Negative for: Tenderness, Guarding, Rebound Back: Positive for: Normal Inspection. Negative for: L CVA Tenderness, R CVA Tenderness Extremity: Positive for: Normal ROM. Negative for: Tenderness, Deformity, Swelling Lymphatic: Positive for: Normal Exam. Negative for: Adenopathy Neurologic/Psych: Positive for: Alert, Oriented, Gait - Laboratory Results Result Diagrams: 02/16/17 05:35 02/16/17 05:35 - ECG O2 Sat by Pulse Oximetry: 100 (RA) Pulse Ox Interpretation: Normal - Critical Care Total Time (In Min): 30 Medical Decision Making Medical Decision Makin Initial impression 76 y/o male presenting with respiratory distress in setting of known CHF, Afib, COPD Initial Plan: * EKG * B-type Natriuretic * CMP * Troponin * CBC * PTT * Prothrombin Time * Chest x-ray * Albuterol 3mL INH * Magnesium Sulfate 2 gm NS 100ml IV * Reevaluation 2229 Labs reviewed: no clinically significant abnormalities. Discussed case with Monik ([place] HELMINTHOLOGIST). Patient showed some improvement in symptoms and will be hospitalized as an OBS TELE patient. Dx: asthma exacerbation Condition: fair Scribe Attestation Documented by Betty Coffey acting as a scribe for Alex Esqueda MD. Provider Attestation All medical record entries made by the Scribe were at my direction and personally dictated by me. I have reviewed the chart and agree that the record accurately reflects my personal performance of the history, physical exam, medical decision making, and the department course for this patient. I have also personally directed, reviewed, and agree with the discharge instructions and disposition Disposition - Clinical Impression Clinical Impression: Respiratory distress, Moderate COPD (chronic obstructive pulmonary disease) - Patient ED Disposition Is Patient to be Admitted: Yes - Disposition Disposition Time: 23:30 Condition: FAIR - Pt Status Changed To: Hospital Disposition Of: Observation (OBS TELE)
[2017-02-14] MEDS ORDERED: methylPREDNISolone 60 MG in Sodium Chloride 0.9% 50 ML IV SCH (04:00)
[2017-02-14] MEDS: Albuterol-Ipratrop 3 mg / 0.5 (3 ml) UD INH SCH ×6 (05:01→23:36)
[2017-02-14 07:09] LABS: BASO % 0.1 % (0.0-2.0); EOS % 0.1 % (0.0-4.0); LYMPH # 0.5 K/uL (1.0-4.3); LYMPH % 7.6 % (20.0-40.0); MEAN CELL VOLUME 91.9 fl (80.0-94.0); MEAN CORPUSCULAR HGB CONC 33.8 g/dL (33.0-37.0); MEAN PLATELET VOLUME 8.9 fl (7.2-11.7); MONO # 0.1 K/uL (0.0-0.8); MONO % 1.4 % (0.0-10.0); NEUT # 5.5 K/uL (1.8-7.0); NEUT % 90.8 % (50.0-75.0); NRBC % 0.1 % (0.0-0.0); PLATELET COUNT 157 K/uL (130-400); RED CELL DISTRIBUTION WIDTH 13.7 % (11.5-14.5); WHITE BLOOD COUNT 6.1 K/uL (4.8-10.8)
[2017-02-14 07:23] LABS: ALB/GLOB RATIO 1.2 (1.0-2.1); ALKALINE PHOSPHATASE 77 U/L (38-126); ALT/SGPT 40 U/L (21-72); AST/SGOT 22 U/L (17-59); BILIRUBIN,TOTAL 0.4 mg/dl (0.2-1.3); BLOOD UREA NITROGEN 49 mg/dl (9-20); CARBON DIOXIDE 25 mmol/L (22-30); CHLORIDE 101 mmol/L (98-107); GFR AFRICAN-AMERICAN > 60; GLUCOSE,RANDOM 203 mg/dL (75-110); SODIUM 136 mmol/l (132-148); TOTAL PROTEIN 6.3 G/DL (6.3-8.2)
[2017-02-14 07:30] LABS: POTASSIUM 5.4 MMOL/L (3.6-5.0)
[2017-02-14] MEDS ORDERED: Sod Polystyrene Sulf 15 gm/60 ml Susp PO ONE (08:00)
--- NOTE | 2017-02-14 08:27 | CP.PCM.HP ---
History of Present Illness - History of Present Illness History of Present Illness: pt admitted for copd exacerbation. rec'd steroids, mg, duonebs in er. at present sleeping w/o resp distress on nc. no f/c, n/v/d. no cough/congesiton/ pain at present. k noted kayexalate ordered. Present on Admission - Present on Admission Any Indicators Present on Admission: Yes History of Uncontrolled Diabetes: Yes Review of Systems - Respiratory Respiratory: As Per HPI, Cough, Dyspnea on Exertion, Wheezing, Chest Congestion Past Patient History - Tetanus Immunizations Tetanus Immunization: Unknown - Past Medical History & Family History Past Medical History?: Yes - Past Social History Alcohol: None Drugs: Denies - CARDIAC Hx Atrial Fibrillation: Yes Hx Congestive Heart Failure: Yes Hx Hypercholesterolemia: Yes Hx Hypertension: Yes - PULMONARY Hx Bronchitis: Yes Hx Chronic Obstructive Pulmonary Disease (COPD): Yes Hx Pneumonia: Yes - NEUROLOGICAL Hx Dementia: Yes - HEENT Hx HEENT Problems: Yes (Wear eyeglasses.) - RENAL Hx Chronic Kidney Disease: Yes (renal failure) - ENDOCRINE/METABOLIC Hx Endocrine Disorders: No - HEMATOLOGICAL/ONCOLOGICAL Hx Human Immunodeficiency Virus (HIV): No - INTEGUMENTARY Hx Dermatological Problems: No - MUSCULOSKELETAL/RHEUMATOLOGICAL Hx Arthritis: Yes - GASTROINTESTINAL Hx Gastritis: Yes - GENITOURINARY/GYNECOLOGICAL Hx Genitourinary Disorders: No - PSYCHIATRIC Hx Substance Use: No - SURGICAL HISTORY Hx Coronary Artery Bypass Graft: Yes (in 2005) - ANESTHESIA Hx Anesthesia: Yes Hx Anesthesia Reactions: No Hx Malignant Hyperthermia: No Meds Allergies/Adverse Reactions: Allergies Allergy/AdvReac Type Severity Reaction Status Date / Time [facility] AdvReac NAUSEA Verified 02/13/17 21:22 Physical Exam - Constitutional Appears: Well, Non-toxic, No Acute Distress - Head Exam Head Exam: ATRAUMATIC, NORMAL INSPECTION, NORMOCEPHALIC - Eye Exam Eye Exam: EOMI, Normal appearance, PERRL Pupil Exam: NORMAL ACCOMODATION, PERRL - ENT Exam ENT Exam: Mucous Membranes Moist, Normal Exam - Neck Exam Neck exam: Positive for: Normal Inspection - Respiratory Exam Respiratory Exam: NORMAL BREATHING PATTERN Additional comments: very mild exp wheezing scattered. good air entry - Cardiovascular Exam Cardiovascular Exam: REGULAR RHYTHM, RRR, +S1, +S2 - GI/Abdominal Exam GI & Abdominal Exam: Normal Bowel Sounds, Soft. absent: Tenderness - Extremities Exam Extremities exam: Positive for: normal inspection - Back Exam Back exam: NORMAL INSPECTION - Neurological Exam Neurological exam: Alert, CN II-XII Intact, Normal Gait, Oriented x3, Reflexes Normal - Psychiatric Exam Psychiatric exam: Normal Affect, Normal Mood - Skin Skin Exam: Dry, Intact, Normal Color, Warm Results - Vital Signs Recent Vital Signs: Last Vital Signs Temp 97.4 F L 02/14/17 08:00 Pulse 74 02/14/17 08:00 Resp 18 02/14/17 08:00 BP 148/81 02/14/17 08:00 Pulse Ox 99 02/14/17 08:00 - Labs Result Diagrams: 02/14/17 06:50 02/14/17 06:50 Labs: Laboratory Results - last 24 hr 02/13/17 02/13/17 02/13/17 21:50 21:50 21:50 WBC 7.9 RBC 3.62 L Hgb 11.0 L Hct 33.5 L MCV 92.5 MCH 30.3 MCHC 32.7 L RDW 14.0 Plt Count 171 MPV 9.3 Neut % (Auto) 63.0 Lymph % (Auto) 19.2 L [place] % (Auto) 14.2 H Eos % (Auto) 3.5 Baso % (Auto) 0.1 Neut # 5.0 Lymph # 1.5 [place] # 1.1 H Eos # 0.3 Baso # 0.0 PT 13.9 H INR 1.3 H APTT 31.0 Sodium 139 Potassium 4.9 Chloride 103 Carbon Dioxide 28 Anion Gap 13 BUN 52 H Creatinine 1.6 H Est GFR ( Amer) 51 Est GFR (Non-Af Amer) 42 Random Glucose 114 H Calcium 8.1 L Total Bilirubin 0.3 AST 20 ALT 44 Alkaline Phosphatase 81 Troponin I < 0.0120 NT-Pro-B Natriuret Pep Total Protein 6.5 Albumin 3.6 Globulin 3.0 Albumin/Globulin Ratio 1.2 02/14/17 02/14/17 02/14/17 00:16 06:50 06:50 WBC 6.1 RBC 3.48 L Hgb 10.8 L Hct 32.0 L MCV 91.9 MCH 31.0 MCHC 33.8 RDW 13.7 Plt Count 157 MPV 8.9 Neut % (Auto) 90.8 H Lymph % (Auto) 7.6 L [place] % (Auto) 1.4 Eos % (Auto) 0.1 Baso % (Auto) 0.1 Neut # 5.5 Lymph # 0.5 L [place] # 0.1 Eos # 0.0 Baso # 0.0 PT INR APTT Sodium 136 Potassium 5.4 H Chloride 101 Carbon Dioxide 25 Anion Gap 15 BUN 49 H Creatinine 1.3 Est GFR ( Amer) > 60 Est GFR (Non-Af Amer) 54 Random Glucose 203 H Calcium 8.0 L Total Bilirubin 0.4 AST 22 ALT 40 Alkaline Phosphatase 77 Troponin I NT-Pro-B Natriuret Pep 3540 H Total Protein 6.3 Albumin 3.5 Globulin 2.8 Albumin/Globulin Ratio 1.2 Assessment & Plan (1) CHF (congestive heart failure) Assessment and Plan: home meds, cardio prn bnp noted Status: Acute Priority: High (2) COPD exacerbation Assessment and Plan: duonebs, steroids, o2 prn phenergen Status: Acute Priority: High (3) DVT prophylaxis Assessment and Plan: scd and ae hose home meds lovenox if admitted over 24h Status: Acute (4) Hyperkalemia Assessment and Plan: kayexalate, bmp 1600 Status: Resolved Decision To Admit - Pt Status Changed To: Hospital Disposition Of: Observation - . Bed Request Type: Med/Surg Admitting Physician: Janay Gutierrez
[2017-02-14] MEDS: Multivitamin With Minerals Tab PO SCH (08:51)
[2017-02-14 11:05] LABS: NEUTROPHIL 97 % (42-75); TOTAL CELLS COUNTED 100
--- NOTE | 2017-02-14 11:54 | RAD ---
HISTORY: Unspecified chest pain. COMPARISON: 02/09/2017 FINDINGS: LUNGS: No active pulmonary disease. PLEURA: No significant pleural effusion identified, no pneumothorax apparent. CARDIOVASCULAR: Cardiomegaly. No evidence of acute, significant cardiovascular disease. Incidental Finding(s): Postoperative changes related to sternotomy. OSSEOUS STRUCTURES: No significant abnormalities. No acute findings, old healed presumed posttraumatic posterior lateral right rib fractures VISUALIZED UPPER ABDOMEN: Normal. OTHER FINDINGS: None. IMPRESSION: No active disease. No significant interval change compared to the prior examination(s).
--- NOTE | 2017-02-14 13:47 | CARD ---
APPROVED REPORT EKG Measurement Heart [id number] <Conclusion> Atrial fibrillation Abnormal ECG
[2017-02-14] MEDS: Promethazine DM 6.25 mg-15 mg/5 ml Syrup PO PRN (16:57)
[2017-02-14 17:14] LABS: CALCIUM 7.9 mg/dL (8.4-10.2); POTASSIUM 4.9 MMOL/L (3.6-5.0)
[2017-02-15] MEDS: Albuterol-Ipratrop 3 mg / 0.5 (3 ml) UD INH SCH ×5 (04:47→19:21)
--- NOTE | 2017-02-15 08:25 | PQF CHF ---
This form is a permanent part of the medical record 02/15/17 Joaquin Myles APN, Please specify the type and acuity of heart failure in your progress notes. Admitted with sob, cough and wheezing. CXR: No active disease. Pro BNP 3540. Last ECHO 02/10/2017: The systolic function is moderately impaired. EF 40-45%. Aortic valve is mildly calcified. Diastolic function is normal. Medication includes: Lasix, Coreg, Diovan. Clarification of your documentation is requested to better reflect the severity of illness and intensity of treatment of your patient. Indicators present [x] Diagnosis of CHF and/or history of CHF [x] BNP > 200 [] Imaging Finding of Pulmonary Edema /Pleural Effusions [] Fluid/Volume Overload [] Pitting edema [x] Ejection Fraction < 40% (Indicative of Systolic Heart Failure) [] Ejection Fraction > 40% (Indicative of Diastolic Heart Failure) [] Dyspnea / Orthopenea / Paroxysmal Nocturnal Dyspnea [] Other: Location in the medical record that reflects the above clinical findings: [] Treatment Provided: [] PHYSICIAN'S RESPONSE Based on your medical judgment of the clinical indicators outlined above, are you treating this patient for a known or suspected: [] Acute CHF [] Systolic [] Diastolic [] Combined [x] Chronic CHF [x] Systolic [] Diastolic [] Combined [] Acute on Chronic CHF []Systolic [] Diastolic [] Combined [] CHF due hypertension [] Acute systolic []Chronic systolic [] Acute/ chronic systolic [] Other, please indicate: [] [] If Unable to Determine, please check the box, sign and date. Present On Admission (POA) Indicator: [x] Present at the time of admission [] Not present at the time of admission [] Clinically Undetermined In responding to this query, please exercise your independent professional judgment. The fact that a question is asked does not imply that any particular answer is desired or expected. Thank you for your clarification on this documentation. If you have any questions please call:ext [phone] * Thank you, Courtney Gray RN CDMP MTDD
--- NOTE | 2017-02-15 08:30 | PQF GENQUE ---
This form is a permanent part of the medical record 02/15/17 Joaquin Myles APN, Please clarify the type of atrial fibrillation: Documentation of a history of Atrial Fibrillation. EKG: Atrial Fibrillation. Medication includes: Eliquis, Coreg Clarification of your documentation is requested to better reflect the severity of illness and intensity of treatment of your patient. Indicators present [] Specify: [] [] Specify: [] [] Specify: [] [] Specify: [] Location in the medical record that reflects the above clinical findings: [] Treatment Provided: [] PHYSICIAN'S RESPONSE Please clarify the type of atrial fibrillation: [x] Chronic [] Paroxysmal [] Permanent [] Persistent [] Other (please specify type) [] Clinically unable to determine [] Unknown Based on your medical judgment of the clinical indicators outlined above please clarify the following: [] Practitioner response [] If unable to determine, please check the box, sign and date. Present On Admission (POA) Indicator: [] Present at the time of admission [] Not present at the time of admission [] Clinically Undetermined In responding to this query, please exercise your independent professional judgment. The fact that a question is asked does not imply that any particular answer is desired or expected. Thank you for your clarification on this documentation. If you have any questions please call:[phone] * Thank you, Courtney Gray RN CDMP MTDD
--- NOTE | 2017-02-15 08:32 | CP.PCM.PN ---
Subjective - Date & Time of Evaluation Date of Evaluation: 02/15/17 Time of Evaluation: 08:31 - Subjective Subjective: doing well, amb to bathroom w/o distress no f/c, n/v/d for dc today. repeat k yesterday wnl. spoke w/ daughter and meds escribed. Objective - Vital Signs/Intake and Output Vital Signs (last 24 hours): Temp Pulse Resp BP Pulse Ox 98.1 F 65 18 165/57 H 97 02/15/17 08:00 02/15/17 08:00 02/15/17 08:00 02/15/17 08:00 02/15/17 08:00 - Medications Medications: Current Medications Albuterol/Ipratropium (Duoneb 3 Mg/0.5 Mg (3 Ml) Ud) 3 ml INH RQ4 [facility] Last Admin: 02/15/17 08:14 Dose: 3 ml Apixaban (Eliquis) 5 mg PO BID [facility] PRN Reason: Protocol Last Admin: 02/14/17 16:56 Dose: 5 mg Aspirin (Aspirin Chewable) 81 mg PO DAILY [facility] Last Admin: 02/14/17 08:53 Dose: 81 mg Atorvastatin Calcium (Lipitor) 40 mg PO DAILY [facility] Last Admin: 02/14/17 08:51 Dose: 40 mg Carvedilol (Coreg) 25 mg PO Q12 [facility] Last Admin: 02/14/17 22:00 Dose: 25 mg Folic Acid (Folic Acid) 1 mg PO DAILY [facility] Last Admin: 02/14/17 08:52 Dose: 1 mg Furosemide (Lasix) 40 mg PO DAILY [facility] Last Admin: 02/14/17 08:51 Dose: 40 mg Isosorbide Mononitrate (Imdur Er) 30 mg PO DAILY [facility] Last Admin: 02/14/17 08:51 Dose: 30 mg Methylprednisolone (Solu-Medrol) 60 mg IV Q6 [facility] Last Admin: 02/15/17 04:02 Dose: 60 mg Multivitamins/Minerals (Therapeutic-M Tab) 1 tab PO DAILY [facility] Last Admin: 02/14/17 08:51 Dose: 1 tab Promethazine HCl/Dextromethorphan (Phenergan Dm Syrup) 5 ml PO Q6 PRN PRN Reason: for cough Last Admin: 02/14/17 16:57 Dose: 5 ml Valsartan (Diovan) 320 mg PO DAILY [facility] Last Admin: 02/14/17 08:51 Dose: 320 mg - Labs Labs: 02/14/17 06:50 02/14/17 16:58 PT 13.9 Seconds (9.8-13.1) H 02/13/17 21:50 INR 1.3 (0.9-1.2) H 02/13/17 21:50 APTT 31.0 Seconds (25.6-37.1) 02/13/17 21:50 - Constitutional Appears: Well, Non-toxic, No Acute Distress - Head Exam Head Exam: ATRAUMATIC, NORMAL INSPECTION, NORMOCEPHALIC - Eye Exam Eye Exam: EOMI, Normal appearance, PERRL Pupil Exam: NORMAL ACCOMODATION, PERRL - ENT Exam ENT Exam: Mucous Membranes Moist, Normal Exam - Neck Exam Neck Exam: Full ROM, Normal Inspection. absent: Lymphadenopathy - Respiratory Exam Respiratory Exam: Clear to Ausculation Bilateral, NORMAL BREATHING PATTERN - Cardiovascular Exam Cardiovascular Exam: REGULAR RHYTHM, RRR, +S1, +S2. absent: Murmur - GI/Abdominal Exam GI & Abdominal Exam: Soft, Normal Bowel Sounds. absent: Tenderness - Exam Exam: Circumcision, NORMAL INSPECTION - Extremities Exam Extremities Exam: Full ROM, Normal Capillary Refill, Normal Inspection. absent : Joint Swelling, Pedal Edema - Back Exam Back Exam: NORMAL INSPECTION - Neurological Exam Neurological Exam: Alert, Awake, CN II-XII Intact, Normal Gait, Oriented x3 - Psychiatric Exam Psychiatric exam: Normal Affect, Normal Mood - Skin Skin Exam: Dry, Intact, Normal Color, Warm Assessment and Plan (1) CHF (congestive heart failure) Status: Acute (2) COPD exacerbation Status: Acute (3) DVT prophylaxis Status: Acute (4) Hyperkalemia Status: Resolved - Assessment and Plan (Free Text) Assessment: (1) CHF (congestive heart failure) Assessment and Plan: home meds, cardio prn bnp noted no cp, dyspnea today Status: Acute Priority: High (2) COPD exacerbation Assessment and Plan: duonebs, steroids, o2 prn phenergen amb w/ steady gait w/o distress Status: Acute Priority: High (3) DVT prophylaxis Assessment and Plan: scd and ae hose home meds lovenox if admitted over 24h Status: Acute (4) Hyperkalemia Assessment and Plan: kayexalate, bmp 1600-normalized Status: Resolved
--- NOTE | 2017-02-15 08:36 | PQF GENQUE ---
This form is a permanent part of the medical record 02/15/17 Joaquin Myles OFFICE COORDINATOR, Admitted with sob, cough and wheezing. CXR no active disease. ER with documentation of a history of Asthma currently with an exacerbation. Medication includes: Duonebs and Solumedrol . Please clarify the type of asthma and the acuity. Clarification of your documentation is requested to better reflect the severity of illness and intensity of treatment of your patient. Indicators present [] Specify: [] [] Specify: [] [] Specify: [] [] Specify: [] Location in the medical record that reflects the above clinical findings: [] Treatment Provided: [] PHYSICIAN'S RESPONSE 1) Type of asthma: [] Childhood [] Cough variant [] Exercise induced [] Late onset [] Mild intermittent [x] Mild persistent [] Moderate persistent [] Severe persistent [] With bronchitis(please clarify acuity of bronchitis) [] With chronic lung disease (please document specific chronic lung disease ) [] Other (please specify) [] Clinically unable to determine [] Unknown 2. Please clarify acuity of asthma: [] Uncomplicated [x] With exacerbation(acute) [] With status asthmaticus [] Other (please specify) [] Clinically unable to determine [] Unknown Based on your medical judgment of the clinical indicators outlined above please clarify the following: [x] Practitioner response [] If unable to determine, please check the box, sign and date. Present On Admission (POA) Indicator: [] Present at the time of admission [] Not present at the time of admission [] Clinically Undetermined In responding to this query, please exercise your independent professional judgment. The fact that a question is asked does not imply that any particular answer is desired or expected. Thank you for your clarification on this documentation. If you have any questions please call:ext [phone] * Thank you, Courtney Gray RN CDMP MTDD
--- NOTE | 2017-02-15 08:41 | PQF GENQUE ---
This form is a permanent part of the medical record 02/15/17 Joaquin Myles BAR PORTER, ER with documentation of a history of chronic kidney disease. BUN 52, 49, 50 Creatinine 1.6, 1.3, 1.5 GFR 51, >60, 55 GFR Non 52, 54, 46 Please clarify the stage of the chronic kidney disease Clarification of your documentation is requested to better reflect the severity of illness and intensity of treatment of your patient. Indicators present [] Specify: [] [] Specify: [] [] Specify: [] [] Specify: [] Location in the medical record that reflects the above clinical findings: [] Treatment Provided: [] PHYSICIAN'S RESPONSE Please clarify the stage of the chronic kidney disease: [] Stage 1 [] Stage 2 (mild) [x] Stage 3 (moderate) [] Stage 4 (severe) [] Stage 5 [] ESRD [] Other (please specify) [] Clinically unable to determine [] Unknown Based on your medical judgment of the clinical indicators outlined above please clarify the following: [x] Practitioner response [] If unable to determine, please check the box, sign and date. Present On Admission (POA) Indicator: [x] Present at the time of admission [] Not present at the time of admission [] Clinically Undetermined In responding to this query, please exercise your independent professional judgment. The fact that a question is asked does not imply that any particular answer is desired or expected. Thank you for your clarification on this documentation. If you have any questions please call:ext [phone] * Thank you, Courtney Gray RN CDMP MTDD
[2017-02-15] MEDS: Multivitamin With Minerals Tab PO SCH (09:02)
[2017-02-15] MEDS: Promethazine DM 6.25 mg-15 mg/5 ml Syrup PO PRN ×3 (09:02→23:45)
[2017-02-15] MEDS ORDERED: Albuterol-Ipratrop 3 mg / 0.5 (3 ml) UD INH STA ×2 (12:54→12:56)
[2017-02-15] MEDS ORDERED: Sodium Chloride 3% for Inhalation 4 ML VIAL.NEB IH PRN (17:31)
[2017-02-15] MEDS: Acetylcysteine 20% Inhal Soln (4ml) INH SCH (19:22)
--- NOTE | 2017-02-15 22:10 | CP.PCM.CON ---
History of Present Illness - History of Present Illness History of Present Illness: Patient seen/examined. full consult to follow. Patient has known CAD presents with likely COPD exacerbation complicated by chronic diastolic dysfunction. clinically improved with steroids. Recommend continued medical therapy with steroids, diuretics. stable for discharge tomorrow with outpatient follow up. Past Patient History - Tetanus Immunizations Tetanus Immunization: Unknown - Past Medical History & Family History Past Medical History?: Yes - Past Social History Alcohol: None Drugs: Denies - CARDIAC Hx Atrial Fibrillation: Yes Hx Congestive Heart Failure: Yes Hx Hypercholesterolemia: Yes Hx Hypertension: Yes - PULMONARY Hx Bronchitis: Yes Hx Chronic Obstructive Pulmonary Disease (COPD): Yes Hx Pneumonia: Yes - NEUROLOGICAL Hx Dementia: Yes - HEENT Hx HEENT Problems: Yes (Wear eyeglasses.) - RENAL Hx Chronic Kidney Disease: Yes (renal failure) - ENDOCRINE/METABOLIC Hx Endocrine Disorders: No - HEMATOLOGICAL/ONCOLOGICAL Hx Human Immunodeficiency Virus (HIV): No - INTEGUMENTARY Hx Dermatological Problems: No - MUSCULOSKELETAL/RHEUMATOLOGICAL Hx Arthritis: Yes - GASTROINTESTINAL Hx Gastritis: Yes - GENITOURINARY/GYNECOLOGICAL Hx Genitourinary Disorders: No - PSYCHIATRIC Hx Substance Use: No - SURGICAL HISTORY Hx Coronary Artery Bypass Graft: Yes (in 2005) - ANESTHESIA Hx Anesthesia: Yes Hx Anesthesia Reactions: No Hx Malignant Hyperthermia: No Meds Home Medications: Home Medication List Medication Instructions Recorded Confirmed Type Budesonide/Formoterol Fumarate 1 aer IH BID #1 aer 02/15/17 Rx [Symbicort] predniSONE [predniSONE Tab] 10 mg PO DAILY #12 tab 02/15/17 Rx Allergies/Adverse Reactions: Allergies Allergy/AdvReac Type Severity Reaction Status Date / Time amlodipine [From [facility]] AdvReac NAUSEA Verified 02/13/17 21:22 - Medications Medications: Current Medications Acetylcysteine (Acetylcysteine 20%) 2 ml INH RBID [facility] Last Admin: 02/15/17 19:22 Dose: 2 ml Albuterol/Ipratropium (Duoneb 3 Mg/0.5 Mg (3 Ml) Ud) 3 ml INH RQ4 [facility] Last Admin: 02/15/17 19:21 Dose: 3 ml Apixaban (Eliquis) 5 mg PO BID [facility] PRN Reason: Protocol Last Admin: 02/15/17 16:28 Dose: 5 mg Aspirin (Aspirin Chewable) 81 mg PO DAILY [facility] Last Admin: 02/15/17 08:58 Dose: 81 mg Atorvastatin Calcium (Lipitor) 40 mg PO DAILY [facility] Last Admin: 02/15/17 09:01 Dose: 40 mg Carvedilol (Coreg) 25 mg PO Q12 [facility] Last Admin: 02/15/17 08:59 Dose: 25 mg Folic Acid (Folic Acid) 1 mg PO DAILY [facility] Last Admin: 02/15/17 09:00 Dose: 1 mg Furosemide (Lasix) 40 mg PO DAILY [facility] Last Admin: 02/15/17 09:00 Dose: 40 mg Isosorbide Mononitrate (Imdur Er) 30 mg PO DAILY [facility] Last Admin: 02/15/17 09:00 Dose: 30 mg Methylprednisolone (Solu-Medrol) 60 mg IV Q6 [facility] Last Admin: 02/15/17 16:27 Dose: 60 mg Multivitamins/Minerals (Therapeutic-M Tab) 1 tab PO DAILY [facility] Last Admin: 02/15/17 09:02 Dose: 1 tab Promethazine HCl/Dextromethorphan (Phenergan Dm Syrup) 5 ml PO Q6 PRN PRN Reason: for cough Last Admin: 02/15/17 16:30 Dose: 5 ml Valsartan (Diovan) 320 mg PO DAILY [facility] Last Admin: 02/15/17 08:59 Dose: 320 mg Results - Vital Signs Recent Vital Signs: Last Vital Signs Temp 97.5 F L 02/15/17 20:01 Pulse 67 02/15/17 20:01 Resp 16 02/15/17 20:01 BP 139/75 02/15/17 20:01 Pulse Ox 93 L 02/15/17 20:01 - Labs Result Diagrams: 02/14/17 06:50 02/14/17 16:58
--- NOTE | 2017-02-15 22:10 | CP.PCM.CON ---
Past Patient History - Tetanus Immunizations Tetanus Immunization: Unknown - Past Medical History & Family History Past Medical History?: Yes - Past Social History Alcohol: None Drugs: Denies - CARDIAC Hx Atrial Fibrillation: Yes Hx Congestive Heart Failure: Yes Hx Hypercholesterolemia: Yes Hx Hypertension: Yes - PULMONARY Hx Bronchitis: Yes Hx Chronic Obstructive Pulmonary Disease (COPD): Yes Hx Pneumonia: Yes - NEUROLOGICAL Hx Dementia: Yes - HEENT Hx HEENT Problems: Yes (Wear eyeglasses.) - RENAL Hx Chronic Kidney Disease: Yes (renal failure) - ENDOCRINE/METABOLIC Hx Endocrine Disorders: No - HEMATOLOGICAL/ONCOLOGICAL Hx Human Immunodeficiency Virus (HIV): No - INTEGUMENTARY Hx Dermatological Problems: No - MUSCULOSKELETAL/RHEUMATOLOGICAL Hx Arthritis: Yes - GASTROINTESTINAL Hx Gastritis: Yes - GENITOURINARY/GYNECOLOGICAL Hx Genitourinary Disorders: No - PSYCHIATRIC Hx Substance Use: No - SURGICAL HISTORY Hx Coronary Artery Bypass Graft: Yes (in 2005) - ANESTHESIA Hx Anesthesia: Yes Hx Anesthesia Reactions: No Hx Malignant Hyperthermia: No Meds Home Medications: Home Medication List Medication Instructions Recorded Confirmed Type Budesonide/Formoterol Fumarate 1 aer IH BID #1 aer 02/15/17 Rx [Symbicort] predniSONE [predniSONE Tab] 10 mg PO DAILY #12 tab 02/15/17 Rx Allergies/Adverse Reactions: Allergies Allergy/AdvReac Type Severity Reaction Status Date / Time amlodipine [From [facility]] AdvReac NAUSEA Verified 02/13/17 21:22 - Medications Medications: Current Medications Acetylcysteine (Acetylcysteine 20%) 2 ml INH RBID [facility] Last Admin: 02/15/17 19:22 Dose: 2 ml Albuterol/Ipratropium (Duoneb 3 Mg/0.5 Mg (3 Ml) Ud) 3 ml INH RQ4 [facility] Last Admin: 02/15/17 19:21 Dose: 3 ml Apixaban (Eliquis) 5 mg PO BID [facility] PRN Reason: Protocol Last Admin: 02/15/17 16:28 Dose: 5 mg Aspirin (Aspirin Chewable) 81 mg PO DAILY [facility] Last Admin: 02/15/17 08:58 Dose: 81 mg Atorvastatin Calcium (Lipitor) 40 mg PO DAILY [facility] Last Admin: 02/15/17 09:01 Dose: 40 mg Carvedilol (Coreg) 25 mg PO Q12 [facility] Last Admin: 02/15/17 08:59 Dose: 25 mg Folic Acid (Folic Acid) 1 mg PO DAILY [facility] Last Admin: 02/15/17 09:00 Dose: 1 mg Furosemide (Lasix) 40 mg PO DAILY [facility] Last Admin: 02/15/17 09:00 Dose: 40 mg Isosorbide Mononitrate (Imdur Er) 30 mg PO DAILY [facility] Last Admin: 02/15/17 09:00 Dose: 30 mg Methylprednisolone (Solu-Medrol) 60 mg IV Q6 [facility] Last Admin: 02/15/17 16:27 Dose: 60 mg Multivitamins/Minerals (Therapeutic-M Tab) 1 tab PO DAILY [facility] Last Admin: 02/15/17 09:02 Dose: 1 tab Promethazine HCl/Dextromethorphan (Phenergan Dm Syrup) 5 ml PO Q6 PRN PRN Reason: for cough Last Admin: 02/15/17 16:30 Dose: 5 ml Valsartan (Diovan) 320 mg PO DAILY [facility] Last Admin: 02/15/17 08:59 Dose: 320 mg Results - Vital Signs Recent Vital Signs: Last Vital Signs Temp 97.5 F L 02/15/17 20:01 Pulse 67 02/15/17 20:01 Resp 16 02/15/17 20:01 BP 139/75 02/15/17 20:01 Pulse Ox 93 L 02/15/17 20:01 - Labs Result Diagrams: 02/14/17 06:50 02/14/17 16:58
[2017-02-16] MEDS: Albuterol-Ipratrop 3 mg / 0.5 (3 ml) UD INH SCH ×6 (00:18→19:18)
--- NOTE | 2017-02-16 01:19 | CON ---
HISTORY OF PRESENT ILLNESS: Mr. Tsang is a 76-year-old male who was referred for pulmonary evaluation by Joaquin Myles. He was admitted with shortness of breath, exercise intolerance, cough and swelling of the legs for the past several days prior to presentation. He was recently discharged from [facility] after being admitted to the hospital for similar condition. He is not compliant to diet at home and appears to have multiple admissions to the hospital for similar conditions. PAST MEDICAL HISTORY: He has a past medical history of congestive heart failure, chronic obstructive pulmonary disease, atrial fibrillation, coronary artery disease, CVA in the past, hypertension, hyperlipidemia. FAMILY HISTORY: Noncontributory. SOCIAL HISTORY: He quit smoking more than 30 years ago. Does not use drugs. Does not use alcohol. 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 PHYSICAL EXAMINATION: GENERAL: The patient is alert, oriented, appears to be much more comfortable since the admission except for having a cough that is productive of thick, tenacious sputum. VITAL SIGNS: Blood pressure 138/75 with a pulse of 76, respiratory rate 18 per minute, O2 sats 96% on nasal cannula oxygen. SKIN: Shows fair turgor. HEENT: Pupils equal and reactive to light and accommodation. Mouth shows fair hygiene with mucous engorgement of pharynx. NECK: JVP flat. LUNGS: Fair aeration with dullness at the bases and audible wheezing and rales. HEART: S1 and S2. ABDOMEN: Soft, nontender. No organomegaly. EXTREMITIES: 1+ pitting pedal edema bilaterally. CENTRAL NERVOUS SYSTEM: Grossly intact. LABORATORY DATA: Remarkable for WBC of 6.1, hemoglobin 10.8, platelet count of 157,000. Sodium 134, potassium 4.9, BUN of 50, creatinine 1.5, serum glucose 288, proBNP 3540. Chest x-ray: No acute cardiopulmonary pathology noted. EKG: Atrial fibrillation, rate of 67 per minute. IMPRESSION: The clinical picture is compatible with congestive heart failure and chronic obstructive pulmonary disease exacerbation; atrial fibrillation with controlled ventricular response; hypertension, fairly controlled; poor compliance to diet. PLAN: Continue therapy as ordered with aerosolized bronchodilators, oxygen, IV steroids. One would add Mucomyst to help expectorate sputum. I would obtain sputum for Gram stain and cultures. Advised compliance to medication and diet. The patient will probably need dietitian evaluation and therapy. We will continue to follow with you. Further therapy will depend on findings. Case was discussed at length with the patient and his daughter. Binh Blanca MD
[2017-02-16 06:02] LABS: HEMATOCRIT 30.3 % (35.0-51.0); LYMPH # 0.5 K/uL (1.0-4.3); LYMPH % 8.6 % (20.0-40.0); MEAN CELL VOLUME 91.6 fl (80.0-94.0); MEAN CORPUSCULAR HEMOGLOBIN 30.2 pg (27.0-31.0); MEAN CORPUSCULAR HGB CONC 32.9 g/dL (33.0-37.0); MEAN PLATELET VOLUME 8.5 fl (7.2-11.7); MONO # 0.3 K/uL (0.0-0.8); MONO % 4.6 % (0.0-10.0); NEUT # 5.4 K/uL (1.8-7.0); NEUT % 86.8 % (50.0-75.0); NRBC % 0.1 % (0.0-0.0); RED CELL DISTRIBUTION WIDTH 13.4 % (11.5-14.5); WHITE BLOOD COUNT 6.3 K/uL (4.8-10.8)
[2017-02-16 06:15] LABS: ALB/GLOB RATIO 1.2 (1.0-2.1); BILIRUBIN,TOTAL 0.5 mg/dl (0.2-1.3); CALCIUM 8.2 mg/dL (8.4-10.2); POTASSIUM 4.6 MMOL/L (3.6-5.0); TOTAL PROTEIN 6.1 G/DL (6.3-8.2)
[2017-02-16] MEDS: Acetylcysteine 20% Inhal Soln (4ml) INH SCH ×2 (07:26→19:18)
--- NOTE | 2017-02-16 08:20 | CP.PCM.PN ---
Subjective - Date & Time of Evaluation Date of Evaluation: 02/16/17 Time of Evaluation: 08:17 - Subjective Subjective: pt denies complaints except "not being allowed to sleep all night". cough noted , appears looser. no f/c, n/v/d. no dyspnea. tr edema to ankles. cardio/pulm no appriciated. cleared by cardio for dc. Objective - Vital Signs/Intake and Output Vital Signs (last 24 hours): Temp Pulse Resp BP Pulse Ox 97.2 F L 58 L 18 146/74 96 02/16/17 08:00 02/16/17 08:00 02/16/17 08:00 02/16/17 08:00 02/16/17 08:00 - Medications Medications: Current Medications Acetylcysteine (Acetylcysteine 20%) 2 ml INH RBID [facility] Last Admin: 02/16/17 07:26 Dose: 2 ml Albuterol/Ipratropium (Duoneb 3 Mg/0.5 Mg (3 Ml) Ud) 3 ml INH RQ4 [facility] Last Admin: 02/16/17 07:26 Dose: 3 ml Apixaban (Eliquis) 5 mg PO BID [facility] PRN Reason: Protocol Last Admin: 02/15/17 16:28 Dose: 5 mg Aspirin (Aspirin Chewable) 81 mg PO DAILY [facility] Last Admin: 02/15/17 08:58 Dose: 81 mg Atorvastatin Calcium (Lipitor) 40 mg PO DAILY [facility] Last Admin: 02/15/17 09:01 Dose: 40 mg Carvedilol (Coreg) 25 mg PO Q12 [facility] Last Admin: 02/15/17 22:09 Dose: 25 mg Folic Acid (Folic Acid) 1 mg PO DAILY [facility] Last Admin: 02/15/17 09:00 Dose: 1 mg Furosemide (Lasix) 40 mg PO DAILY [facility] Last Admin: 02/15/17 09:00 Dose: 40 mg Isosorbide Mononitrate (Imdur Er) 30 mg PO DAILY [facility] Last Admin: 02/15/17 09:00 Dose: 30 mg Methylprednisolone (Solu-Medrol) 60 mg IV Q6 [facility] Last Admin: 02/16/17 04:20 Dose: 60 mg Multivitamins/Minerals (Therapeutic-M Tab) 1 tab PO DAILY [facility] Last Admin: 02/15/17 09:02 Dose: 1 tab Promethazine HCl/Dextromethorphan (Phenergan Dm Syrup) 5 ml PO Q6 [facility]N PRN Reason: for cough Last Admin: 02/15/17 23:45 Dose: 5 ml Valsartan (Diovan) 320 mg PO DAILY [facility] Last Admin: 02/15/17 08:59 Dose: 320 mg - Labs Labs: 02/16/17 05:35 02/16/17 05:35 PT 13.9 Seconds (9.8-13.1) H 02/13/17 21:50 INR 1.3 (0.9-1.2) H 02/13/17 21:50 APTT 31.0 Seconds (25.6-37.1) 02/13/17 21:50 - Constitutional Appears: Well, Non-toxic, No Acute Distress - Head Exam Head Exam: ATRAUMATIC, NORMAL INSPECTION, NORMOCEPHALIC - Eye Exam Eye Exam: EOMI, Normal appearance, PERRL Pupil Exam: NORMAL ACCOMODATION, PERRL - ENT Exam ENT Exam: Mucous Membranes Moist, Normal Exam - Neck Exam Neck Exam: Full ROM, Normal Inspection. absent: Lymphadenopathy - Respiratory Exam Respiratory Exam: Clear to Ausculation Bilateral, NORMAL BREATHING PATTERN Additional comments: scattered mild wheezing w/ good air entry - Cardiovascular Exam Cardiovascular Exam: Irregular Rhythm, +S1, +S2. absent: Murmur - GI/Abdominal Exam GI & Abdominal Exam: Soft, Normal Bowel Sounds. absent: Tenderness - Extremities Exam Extremities Exam: Full ROM, Normal Capillary Refill, Normal Inspection. absent : Joint Swelling, Pedal Edema - Back Exam Back Exam: NORMAL INSPECTION - Neurological Exam Neurological Exam: Alert, Awake, CN II-XII Intact, Normal Gait, Oriented x3 - Psychiatric Exam Psychiatric exam: Normal Affect, Normal Mood - Skin Skin Exam: Dry, Intact, Normal Color, Warm Assessment and Plan (1) CHF (congestive heart failure) Status: Acute (2) COPD exacerbation Status: Acute (3) DVT prophylaxis Status: Acute (4) Hyperkalemia Status: Resolved - Assessment and Plan (Free Text) Assessment: (1) CHF (congestive heart failure) Assessment and Plan: home meds, cardio bnp noted no cp, dyspnea today Status: Acute Priority: High (2) COPD exacerbation Assessment and Plan: duonebs, steroids, o2 prn phenergen amb w/ steady gait w/o distress pulm Status: Acute Priority: High (3) DVT prophylaxis Assessment and Plan: scd and ae hose home meds ambulation Status: Acute (4) Hyperkalemia Assessment and Plan: resolved Status: Resolved [id number] about stable, will monitor dc yesterday held r/t episodes of dyspnea
--- NOTE | 2017-02-16 08:50 | CP.PCM.PN ---
Subjective - Date & Time of Evaluation Date of Evaluation: 02/16/17 Time of Evaluation: 08:53 - Subjective Subjective: FEELS BETTER LESS COUGH--PRODUCTIVE OF CLEAR SPUTUM NO CHEST PAINS SOB IMPROVED Objective - Vital Signs/Intake and Output Vital Signs (last 24 hours): Temp Pulse Resp BP Pulse Ox 97.2 F L 58 L 18 146/74 96 02/16/17 08:00 02/16/17 08:00 02/16/17 08:00 02/16/17 08:00 02/16/17 08:00 - Medications Medications: Current Medications Acetylcysteine (Acetylcysteine 20%) 2 ml INH RBID [facility] Last Admin: 02/16/17 07:26 Dose: 2 ml Albuterol/Ipratropium (Duoneb 3 Mg/0.5 Mg (3 Ml) Ud) 3 ml INH RQ4 [facility] Last Admin: 02/16/17 07:26 Dose: 3 ml Apixaban (Eliquis) 5 mg PO BID [facility] PRN Reason: Protocol Last Admin: 02/15/17 16:28 Dose: 5 mg Aspirin (Aspirin Chewable) 81 mg PO DAILY [facility] Last Admin: 02/15/17 08:58 Dose: 81 mg Atorvastatin Calcium (Lipitor) 40 mg PO DAILY [facility] Last Admin: 02/15/17 09:01 Dose: 40 mg Carvedilol (Coreg) 25 mg PO Q12 [facility] Last Admin: 02/15/17 22:09 Dose: 25 mg Folic Acid (Folic Acid) 1 mg PO DAILY [facility] Last Admin: 02/15/17 09:00 Dose: 1 mg Furosemide (Lasix) 40 mg PO DAILY [facility] Last Admin: 02/15/17 09:00 Dose: 40 mg Isosorbide Mononitrate (Imdur Er) 30 mg PO DAILY [facility] Last Admin: 02/15/17 09:00 Dose: 30 mg Methylprednisolone (Solu-Medrol) 60 mg IV Q6 [facility] Last Admin: 02/16/17 04:20 Dose: 60 mg Multivitamins/Minerals (Therapeutic-M Tab) 1 tab PO DAILY [facility] Last Admin: 02/15/17 09:02 Dose: 1 tab Promethazine HCl/Dextromethorphan (Phenergan Dm Syrup) 5 ml PO Q6 PRN PRN Reason: for cough Last Admin: 02/15/17 23:45 Dose: 5 ml Valsartan (Diovan) 320 mg PO DAILY [facility] Last Admin: 02/15/17 08:59 Dose: 320 mg - Labs Labs: 02/16/17 05:35 02/16/17 05:35 PT 13.9 Seconds (9.8-13.1) H 02/13/17 21:50 INR 1.3 (0.9-1.2) H 02/13/17 21:50 APTT 31.0 Seconds (25.6-37.1) 02/13/17 21:50 - Constitutional Appears: No Acute Distress - Head Exam Head Exam: ATRAUMATIC, NORMAL INSPECTION, NORMOCEPHALIC - Eye Exam Eye Exam: EOMI, Normal appearance, PERRL Pupil Exam: NORMAL ACCOMODATION, PERRL - ENT Exam ENT Exam: Mucous Membranes Moist, Normal Exam - Neck Exam Neck Exam: Full ROM, Normal Inspection. absent: Lymphadenopathy - Respiratory Exam Respiratory Exam: Prolonged Expiratory Phase, Rales, Wheezes, NORMAL BREATHING PATTERN - Cardiovascular Exam Cardiovascular Exam: REGULAR RHYTHM, +S1, +S2. absent: Murmur - GI/Abdominal Exam GI & Abdominal Exam: Soft, Normal Bowel Sounds. absent: Tenderness - Rectal Exam Rectal Exam: NORMAL INSPECTION - Extremities Exam Extremities Exam: Full ROM, Normal Capillary Refill, Normal Inspection, Pedal Edema. absent: Joint Swelling - Back Exam Back Exam: NORMAL INSPECTION - Neurological Exam Neurological Exam: Alert, Awake, CN II-XII Intact, Normal Gait, Oriented x3 - Psychiatric Exam Psychiatric exam: Normal Affect, Normal Mood - Skin Skin Exam: Dry, Intact, Normal Color, Warm Assessment and Plan - Assessment and Plan (Free Text) Assessment: COPD EXAC CLINICALLY IMPROVING WITH STEROIDS AND BRONCHODILATORS CHF--IMPROVING NON-COMPLIANCE Plan: TAPER STEROIDS INCREASE ACTIVITY MAY D/C HOME IN AM IF STABLE AND NO DYSPNEA AT REST AND ON EXERTION
[2017-02-16] MEDS: Multivitamin With Minerals Tab PO SCH (09:56)
[2017-02-16] MEDS ORDERED: Influenza Vaccine 18yr & older 0.5 ML/45 MCG SYR IM ONE (20:53)
[2017-02-16] MEDS ORDERED: MethylPREDNISolone 40 mg Vial IV SCH (21:00)
[2017-02-16] MEDS: Promethazine DM 6.25 mg-15 mg/5 ml Syrup PO PRN (21:56)
[2017-02-17] MEDS: Albuterol-Ipratrop 3 mg / 0.5 (3 ml) UD INH SCH ×6 (00:21→19:14)
[2017-02-17 05:30] LABS: MEAN CELL VOLUME 91.9 fl (80.0-94.0); MEAN CORPUSCULAR HEMOGLOBIN 30.7 pg (27.0-31.0); MEAN CORPUSCULAR HGB CONC 33.4 g/dL (33.0-37.0); RED CELL DISTRIBUTION WIDTH 13.5 % (11.5-14.5); WHITE BLOOD COUNT 7.3 K/uL (4.8-10.8)
[2017-02-17 05:57] LABS: CALCIUM 8.2 mg/dL (8.4-10.2); POTASSIUM 5.2 MMOL/L (3.6-5.0)
[2017-02-17] MEDS ORDERED: Sod Polystyrene Sulf 15 gm/60 ml Susp PO ONE (06:34)
[2017-02-17] MEDS: Acetylcysteine 20% Inhal Soln (4ml) INH SCH ×2 (07:47→19:14)
--- NOTE | 2017-02-17 08:06 | CP.PCM.PN ---
Subjective - Date & Time of Evaluation Date of Evaluation: 02/17/17 Time of Evaluation: 08:03 - Subjective Subjective: pt doing well in bed. pulled off o2 but w/o resp distress. no f/c, n/v/d. nc place back in pt s nose. pts only complaint is not being able to sleep well be cause people come into his room. bw noted. k 5.2 bun/cr about the same. Objective - Vital Signs/Intake and Output Vital Signs (last 24 hours): Temp Pulse Resp BP Pulse Ox 97.4 F L 59 L 20 156/85 H 97 02/17/17 04:54 02/17/17 04:54 02/17/17 04:54 02/17/17 04:54 02/17/17 04:54 - Medications Medications: Current Medications Acetylcysteine (Acetylcysteine 20%) 2 ml INH RBID [facility] Last Admin: 02/16/17 19:18 Dose: 2 ml Albuterol/Ipratropium (Duoneb 3 Mg/0.5 Mg (3 Ml) Ud) 3 ml INH RQ4 [facility] Last Admin: 02/17/17 07:47 Dose: 3 ml Apixaban (Eliquis) 5 mg PO BID [facility] PRN Reason: Protocol Last Admin: 02/16/17 16:12 Dose: 5 mg Aspirin (Aspirin Chewable) 81 mg PO DAILY [facility] Last Admin: 02/16/17 09:56 Dose: 81 mg Atorvastatin Calcium (Lipitor) 40 mg PO DAILY [facility] Last Admin: 02/16/17 09:56 Dose: 40 mg Carvedilol (Coreg) 25 mg PO Q12 [facility] Last Admin: 02/16/17 21:56 Dose: 25 mg Folic Acid (Folic Acid) 1 mg PO DAILY [facility] Last Admin: 02/16/17 09:57 Dose: 1 mg Furosemide (Lasix) 40 mg PO DAILY [facility] Last Admin: 02/16/17 09:56 Dose: 40 mg Isosorbide Mononitrate (Imdur Er) 30 mg PO DAILY [facility] Last Admin: 02/16/17 09:57 Dose: 30 mg Methylprednisolone (Solu-Medrol) 60 mg IV Q12 [facility] Multivitamins/Minerals (Therapeutic-M Tab) 1 tab PO DAILY [facility] Last Admin: 02/16/17 09:56 Dose: 1 tab Promethazine HCl/Dextromethorphan (Phenergan Dm Syrup) 5 ml PO Q6 PRN PRN Reason: for cough Last Admin: 02/16/17 21:56 Dose: 5 ml Valsartan (Diovan) 320 mg PO DAILY [facility] Last Admin: 02/16/17 09:56 Dose: 320 mg - Labs Labs: 02/17/17 04:40 02/17/17 04:40 PT 13.9 Seconds (9.8-13.1) H 02/13/17 21:50 INR 1.3 (0.9-1.2) H 02/13/17 21:50 APTT 31.0 Seconds (25.6-37.1) 02/13/17 21:50 - Constitutional Appears: Well, Non-toxic, No Acute Distress - Head Exam Head Exam: ATRAUMATIC, NORMAL INSPECTION, NORMOCEPHALIC - Eye Exam Eye Exam: EOMI, Normal appearance, PERRL Pupil Exam: NORMAL ACCOMODATION, PERRL - ENT Exam ENT Exam: Mucous Membranes Moist, Normal Exam - Neck Exam Neck Exam: Full ROM, Normal Inspection. absent: Lymphadenopathy - Respiratory Exam Respiratory Exam: Clear to Ausculation Bilateral, NORMAL BREATHING PATTERN Additional comments: scattered wheeze, good air entry, otherwise clear - Cardiovascular Exam Cardiovascular Exam: Irregular Rhythm, +S1, +S2. absent: Murmur - GI/Abdominal Exam GI & Abdominal Exam: Soft, Normal Bowel Sounds. absent: Tenderness - Extremities Exam Extremities Exam: Full ROM, Normal Capillary Refill, Normal Inspection. absent : Joint Swelling, Pedal Edema - Back Exam Back Exam: NORMAL INSPECTION - Neurological Exam Neurological Exam: Alert, Awake, CN II-XII Intact, Normal Gait, Oriented x3 - Psychiatric Exam Psychiatric exam: Normal Affect, Normal Mood - Skin Skin Exam: Dry, Intact, Normal Color, Warm Assessment and Plan (1) CHF (congestive heart failure) Status: Acute (2) COPD exacerbation Status: Acute (3) DVT prophylaxis Status: Acute (4) Hyperkalemia Status: Resolved - Assessment and Plan (Free Text) Assessment: (1) CHF (congestive heart failure) Assessment and Plan: home meds, cardio bnp noted no cp, dyspnea today cleared by cardio Status: Acute Priority: High (2) COPD exacerbation Assessment and Plan: duonebs, steroids, o2 prn phenergen amb w/ steady gait w/o distress pulm clearance for dc pending mucomyst ordered Status: Acute Priority: High (3) DVT prophylaxis Assessment and Plan: scd and ae hose home meds ambulation Status: Acute (4) Hyperkalemia Assessment and Plan: kayexalate today, bmp 1600 Status: Resolved [id number] about stable, will monitor dc pending pulm clearance
[2017-02-17] MEDS: Multivitamin With Minerals Tab PO SCH (08:38)
--- NOTE | 2017-02-17 08:51 | CP.PCM.PN ---
Subjective - Date & Time of Evaluation Date of Evaluation: 02/17/17 Time of Evaluation: 08:52 - Subjective Subjective: FEELS BETTER SOB LESS COUGH IMPROVED NO CHEST PAINS Objective - Vital Signs/Intake and Output Vital Signs (last 24 hours): Temp Pulse Resp BP Pulse Ox 97.5 F L 58 L 20 165/79 H 97 02/17/17 08:31 02/17/17 08:36 02/17/17 08:31 02/17/17 08:37 02/17/17 08:31 - Medications Medications: Current Medications Acetylcysteine (Acetylcysteine 20%) 2 ml INH RBID [facility] Last Admin: 02/17/17 07:47 Dose: Not Given Albuterol/Ipratropium (Duoneb 3 Mg/0.5 Mg (3 Ml) Ud) 3 ml INH RQ4 [facility] Last Admin: 02/17/17 07:47 Dose: 3 ml Apixaban (Eliquis) 5 mg PO BID [facility] PRN Reason: Protocol Last Admin: 02/17/17 08:36 Dose: 5 mg Aspirin (Aspirin Chewable) 81 mg PO DAILY [facility] Last Admin: 02/17/17 08:35 Dose: 81 mg Atorvastatin Calcium (Lipitor) 40 mg PO DAILY [facility] Last Admin: 02/17/17 08:38 Dose: 40 mg Carvedilol (Coreg) 25 mg PO Q12 [facility] Last Admin: 02/17/17 08:36 Dose: Not Given Folic Acid (Folic Acid) 1 mg PO DAILY [facility] Last Admin: 02/17/17 08:37 Dose: 1 mg Furosemide (Lasix) 40 mg PO DAILY [facility] Last Admin: 02/17/17 08:37 Dose: 40 mg Isosorbide Mononitrate (Imdur Er) 30 mg PO DAILY [facility] Last Admin: 02/17/17 08:37 Dose: 30 mg Methylprednisolone (Solu-Medrol) 60 mg IV Q12 [facility] Last Admin: 02/17/17 08:38 Dose: 60 mg Multivitamins/Minerals (Therapeutic-M Tab) 1 tab PO DAILY [facility] Last Admin: 02/17/17 08:38 Dose: 1 tab Promethazine HCl/Dextromethorphan (Phenergan Dm Syrup) 5 ml PO Q6 PRN PRN Reason: for cough Last Admin: 02/16/17 21:56 Dose: 5 ml Valsartan (Diovan) 320 mg PO DAILY [facility] Last Admin: 02/17/17 08:36 Dose: 320 mg - Labs Labs: 02/17/17 04:40 02/17/17 04:40 PT 13.9 Seconds (9.8-13.1) H 02/13/17 21:50 INR 1.3 (0.9-1.2) H 02/13/17 21:50 APTT 31.0 Seconds (25.6-37.1) 02/13/17 21:50 - Constitutional Appears: No Acute Distress - Head Exam Head Exam: ATRAUMATIC, NORMAL INSPECTION, NORMOCEPHALIC - Eye Exam Eye Exam: EOMI, Normal appearance, PERRL Pupil Exam: NORMAL ACCOMODATION, PERRL - ENT Exam ENT Exam: Mucous Membranes Moist, Normal Exam - Neck Exam Neck Exam: Full ROM, Normal Inspection. absent: Lymphadenopathy - Respiratory Exam Respiratory Exam: Prolonged Expiratory Phase, NORMAL BREATHING PATTERN - Cardiovascular Exam Cardiovascular Exam: REGULAR RHYTHM, +S1, +S2. absent: Murmur - GI/Abdominal Exam GI & Abdominal Exam: Soft, Normal Bowel Sounds. absent: Tenderness - Rectal Exam Rectal Exam: NORMAL INSPECTION - Extremities Exam Extremities Exam: Full ROM, Normal Capillary Refill, Normal Inspection, Pedal Edema. absent: Joint Swelling - Back Exam Back Exam: NORMAL INSPECTION - Neurological Exam Neurological Exam: Alert, Awake, CN II-XII Intact, Normal Gait, Oriented x3 - Psychiatric Exam Psychiatric exam: Normal Affect, Normal Mood - Skin Skin Exam: Dry, Intact, Normal Color, Warm Assessment and Plan - Assessment and Plan (Free Text) Assessment: CHF IMPROVED COPD STABLE Plan: CLEARED FOR DISCHARGE FROM THE PULMON[facility]IEW POINT WILL SIGN OFF CASE AND SEE AGAIN AT YOUR REQUEST
[2017-02-17 18:02] LABS: CALCIUM 8.3 mg/dL (8.4-10.2); POTASSIUM 4.6 MMOL/L (3.6-5.0)
[2017-02-17] MEDS: Promethazine DM 6.25 mg-15 mg/5 ml Syrup PO PRN (23:28)
[2017-02-18] MEDS: Albuterol-Ipratrop 3 mg / 0.5 (3 ml) UD INH SCH ×6 (00:33→15:43)
[2017-02-18] MEDS: Acetylcysteine 20% Inhal Soln (4ml) INH SCH (08:16)
[2017-02-18 08:30] VITALS: RESP 18
--- NOTE | 2017-02-18 09:01 | CP.PCM.DIS ---
Provider - Provider Date of Admission: 02/14/17 16:53 Attending physician: Janay Gutierrez MD Time Spent in preparation of Discharge (in minutes): 15 Diagnosis - Discharge Diagnosis (1) CHF (congestive heart failure) Status: Acute Priority: High (2) COPD exacerbation Status: Acute Priority: High (3) DVT prophylaxis Status: Acute (4) Hyperkalemia Status: Resolved Hospital Course - Lab Results Lab Results: Micro Results 02/16/17 Unknown Sputum Gram Stain - Final Most Recent Lab Values WBC 7.3 K/uL (4.8-10.8) 02/17/17 04:40 RBC 3.38 Mil/uL (4.40-5.90) L 02/17/17 04:40 Hgb 10.4 g/dL (12.0-18.0) L 02/17/17 04:40 Hct 31.0 % (35.0-51.0) L 02/17/17 04:40 MCV 91.9 fl (80.0-94.0) 02/17/17 04:40 MCH 30.7 pg (27.0-31.0) 02/17/17 04:40 MCHC 33.4 g/dL (33.0-37.0) 02/17/17 04:40 RDW 13.5 % (11.5-14.5) 02/17/17 04:40 Plt Count 214 K/uL (130-400) 02/17/17 04:40 MPV 8.5 fl (7.2-11.7) 02/16/17 05:35 Neut % (Auto) 86.8 % (50.0-75.0) H 02/16/17 05:35 Lymph % (Auto) 8.6 % (20.0-40.0) L 02/16/17 05:35 Wythe % (Auto) 4.6 % (0.0-10.0) 02/16/17 05:35 Eos % (Auto) 0.0 % (0.0-4.0) 02/16/17 05:35 Baso % (Auto) 0.0 % (0.0-2.0) 02/16/17 05:35 Neut # 5.4 K/uL (1.8-7.0) 02/16/17 05:35 Lymph # 0.5 K/uL (1.0-4.3) L 02/16/17 05:35 Wythe # 0.3 K/uL (0.0-0.8) 02/16/17 05:35 Eos # 0.0 K/uL (0.0-0.7) 02/16/17 05:35 Baso # 0.0 K/uL (0.0-0.2) 02/16/17 05:35 Neutrophils % (Manual) 97 % (42-75) H 02/14/17 06:50 Lymphocytes % (Manual) 1 % (20-50) L 02/14/17 06:50 Monocytes % (Manual) 2 % (0-10) 02/14/17 06:50 Toxic Granulation Present 02/14/17 06:50 Platelet Estimate Normal (NORMAL) 02/14/17 06:50 Hypochromasia (manual) Slight 02/14/17 06:50 Ovalocytes Slight 02/14/17 06:50 PT 13.9 Seconds (9.8-13.1) H 02/13/17 21:50 INR 1.3 (0.9-1.2) H 02/13/17 21:50 APTT 31.0 Seconds (25.6-37.1) 02/13/17 21:50 Sodium 132 mmol/l (132-148) 02/17/17 16:59 Potassium 4.6 MMOL/L (3.6-5.0) 02/17/17 16:59 Chloride 94 mmol/L (98-107) L 02/17/17 16:59 Carbon Dioxide 28 mmol/L (22-30) 02/17/17 16:59 Anion Gap 15 (10-20) 02/17/17 16:59 BUN 56 mg/dl (9-20) H 02/17/17 16:59 Creatinine 1.6 mg/dl (0.8-1.5) H 02/17/17 16:59 Est GFR ( Amer) 51 02/17/17 16:59 Est GFR (Non-Af Amer) 42 02/17/17 16:59 Random Glucose 317 mg/dL (75-110) H 02/17/17 16:59 Calcium 8.3 mg/dL (8.4-10.2) L 02/17/17 16:59 Total Bilirubin 0.5 mg/dl (0.2-1.3) 02/16/17 05:35 AST 15 U/L (17-59) L D 02/16/17 05:35 ALT 37 U/L (21-72) 02/16/17 05:35 Alkaline Phosphatase 79 U/L (38-126) 02/16/17 05:35 Troponin I < 0.0120 ng/mL (0.00-0.120) 02/13/17 21:50 NT-Pro-B Natriuret Pep 3540 pg/ml (0-900) H 02/14/17 00:16 Total Protein 6.1 G/DL (6.3-8.2) L 02/16/17 05:35 Albumin 3.4 g/dL (3.5-5.0) L 02/16/17 05:35 Globulin 2.7 gm/dL (2.2-3.9) 02/16/17 05:35 Albumin/Globulin Ratio 1.2 (1.0-2.1) 02/16/17 05:35 Discharge Exam - Head Exam Head Exam: ATRAUMATIC, NORMAL INSPECTION, NORMOCEPHALIC - Eye Exam Eye Exam: EOMI, Normal appearance, PERRL Pupil Exam: NORMAL ACCOMODATION, PERRL - Respiratory Exam Respiratory Exam: Clear to PA & Lateral, NORMAL BREATHING PATTERN, UNREMARKABLE - Cardiovascular Exam Cardiovascular Exam: REGULAR RHYTHM, RRR, +S1, +S2 - GI/Abdominal Exam GI & Abdominal Exam: Normal Bowel Sounds, Soft, Unremarkable - Extremities Exam Extremities exam: full ROM, normal capillary refill, normal inspection, pedal pulses present - Neurological Exam Neurological exam: Alert, CN II-XII Intact, Normal Gait, Oriented x3, Reflexes Normal - Psychiatric Exam Psychiatric exam: Normal Affect, Normal Mood - Skin Skin Exam: Dry, Intact, Normal Color, Warm Discharge Plan - Discharge Medications Prescriptions: Apixaban [Eliquis] 5 mg PO BID #60 tablet Atorvastatin [Lipitor] 40 mg PO DAILY #30 tab Budesonide/Formoterol Fumarate [Symbicort] 1 aer IH BID #1 aer Carvedilol [Coreg] 25 mg PO Q12H #60 tab Folic Acid 1 mg PO DAILY #30 tab Furosemide [Lasix] 40 mg PO DAILY #30 tab Isosorbide Mononitrate ER [Imdur ER] 30 mg PO DAILY #30 tab Multimineral/Multivitamin [Therapeutic-M Tab] 1 tab PO DAILY #30 tab predniSONE [predniSONE Tab] 10 mg PO DAILY #12 tab Promethazine DM [Phenergan DM Syrup] 5 ml PO Q6 PRN #1 bottle PRN Reason: for cough - Follow Up Plan Condition: FAIR Disposition: HOME/ ROUTINE Additional Instructions: pt doing well, no complaints/sob. no f/c, n/v/d. resps even and unalbored. minimal ankle edema. clearance from cardio/pulm noted. k wnl after akyexalate. for dc today. f/u pmd and specialists as outpt. compliance w/ meds/diet d/c w/ pt. fianl dx-copd exacerbation,c hf
[2017-02-18] MEDS: Multivitamin With Minerals Tab PO SCH (09:34)
[2017-02-18] MEDS: Promethazine DM 6.25 mg-15 mg/5 ml Syrup PO PRN (10:43)
[2017-02-18 17:04] VITALS: BP 142/68; PULSE 70; TEMP 97.7; O2SAT 94
== END 2017-02-18 17:10 | disposition home health service (06) | DRG 191 ==
LOC: H.ER 21:17 → H.ERHOLD 22:39 → H.TEL 02-14 00:43 → OBSVTOIN 02-14 16:53
PROVIDERS: ADMIT Family Medicine; ATTEND Family Medicine
PROC: 3E0F7GC Introduction of Other Therapeutic Substance into Respiratory Tract, Via Natural or Artificial Opening (ICD-10-PCS; principal; 2017-02-14)
PROC: 3E0234Z Introduction of Serum, Toxoid and Vaccine into Muscle, Percutaneous Approach (ICD-10-PCS; 2017-02-16)
DX: J44.1 Chronic obstructive pulmonary disease with (acute) exacerbation (principal); I13.0 Hypertensive heart and chronic kidney disease with heart failure and stage 1 through stage 4 chronic kidney disease, or unspecified chronic kidney disease; E11.22 Type 2 diabetes mellitus with diabetic chronic kidney disease; E87.5 Hyperkalemia; R06.03 Acute respiratory distress; J45.31 Mild persistent asthma with (acute) exacerbation; I50.22 Chronic systolic (congestive) heart failure; N18.3 Chronic kidney disease, stage 3 (moderate); E78.00 Pure hypercholesterolemia, unspecified; E78.5 Hyperlipidemia, unspecified; F03.90 Unspecified dementia, unspecified severity, without behavioral disturbance, psychotic disturbance, mood disturbance, and anxiety; I25.10 Atherosclerotic heart disease of native coronary artery without angina pectoris; Z79.01 Long term (current) use of anticoagulants; Z79.899 Other long term (current) drug therapy; Z86.73 Personal history of transient ischemic attack (TIA), and cerebral infarction without residual deficits; Z87.01 Personal history of pneumonia (recurrent); Z87.891 Personal history of nicotine dependence; Z91.19 Patient's noncompliance with other medical treatment and regimen; Z95.1 Presence of aortocoronary bypass graft; J40 Bronchitis, not specified as acute or chronic; K29.70 Gastritis, unspecified, without bleeding; M19.90 Unspecified osteoarthritis, unspecified site; I48.2 Chronic atrial fibrillation; Z23 Encounter for immunization

== ENCOUNTER 2017-02-19 07:57 | Inpatient (IN) | payer MEDICARE, BC ==
[2017-02-19 07:59] VITALS: BMI 29.5
[2017-02-19] MEDS ORDERED: Albuterol-Ipratrop 3 mg / 0.5 (3 ml) UD INH STA (08:17)
[2017-02-19 08:32] LABS: BASO # 0.1 K/uL (0.0-0.2); BASO % 0.4 % (0.0-2.0); HEMOGLOBIN 10.8 g/dL (12.0-18.0); LYMPH # 0.8 K/uL (1.0-4.3); LYMPH % 5.9 % (20.0-40.0); MEAN CELL VOLUME 91.5 fl (80.0-94.0); MEAN CORPUSCULAR HEMOGLOBIN 29.9 pg (27.0-31.0); MEAN CORPUSCULAR HGB CONC 32.6 g/dL (33.0-37.0); MEAN PLATELET VOLUME 8.3 fl (7.2-11.7); MONO # 1.5 K/uL (0.0-0.8); MONO % 10.3 % (0.0-10.0); NEUT # 11.7 K/uL (1.8-7.0); NEUT % 83.4 % (50.0-75.0); PLATELET COUNT 241 K/uL (130-400); RBC 3.61 Mil/uL (4.40-5.90); RED CELL DISTRIBUTION WIDTH 13.7 % (11.5-14.5); WHITE BLOOD COUNT 14.1 K/uL (4.8-10.8)
--- NOTE | 2017-02-19 08:38 | ED PDOC ---
HPI: SOB/CHF/COPD Time Seen by Provider: 02/19/17 08:03 Chief Complaint (Nursing): Shortness Of Breath Chief Complaint (Provider): Shortness of Breath History Per: EMS History/Exam Limitations: no limitations Onset/Duration Of Symptoms: Mins (just prior to arrival) Additional Complaint(s): 76 y/o male with a surgical history of a Coronary Artery Bypass Graft and a past medical history of Atrial Fibrillation and Congestive Heart Failure, who presents to the ED complaining of shortness of breath, onset just prior to arrival. According to the EMS, one duoneb was administered before arriving to the ED in an attempt to temporarily alleviate some of the patient's symptoms. Patient also reports of bilateral chest pain, but denies cough, orthopnea, or any new leg swelling. Past Medical History Reviewed: Historical Data, Nursing Documentation, Vital Signs Vital Signs: Last Vital Signs Temp 97.5 F L 02/20/17 12:00 Pulse 69 02/20/17 12:00 Resp 18 02/20/17 12:00 BP 118/58 L 02/20/17 12:00 Pulse Ox 95 02/20/17 12:00 - Medical History PMH: Arthritis, Atrial Fibrillation, Bronchitis, CAD, CHF, COPD, CVA (mild), Dementia, Diabetes (type II), Gastritis, HTN, Hypercholesterolemia, Pneumonia, Chronic Kidney Disease (renal failure) Denies: HIV - Surgical History Surgical History: CABG (in 2005) - Family History Family History: States: Unknown Family Hx, CAD, Diabetes (father) - Immunization History Hx Tetanus Toxoid Vaccination: No Hx Influenza Vaccination: Yes Hx Pneumococcal Vaccination: No - Home Medications Home Medications: Ambulatory Orders Medication Instructions Recorded Albuterol/Ipratropium [Duoneb 3 3 ml INH RQ6 10/22/16 mg/0.5 mg (3 ml) UD] Aspirin [Aspirin Chewable] 81 mg PO DAILY #30 chew 01/26/17 Promethazine [Phenergan Syrup] 12.5 mg PO Q6 PRN #14 dose 01/26/17 Valsartan [Diovan] 320 mg PO DAILY #30 tab 01/26/17 Budesonide/Formoterol Fumarate 1 aer IH BID #1 aer 02/15/17 [Symbicort] predniSONE [predniSONE Tab] 10 mg PO DAILY #12 tab 02/15/17 Apixaban [Eliquis] 5 mg PO BID #60 tablet 02/18/17 Atorvastatin [Lipitor] 40 mg PO DAILY #30 tab 02/18/17 Carvedilol [Coreg] 25 mg PO Q12H #60 tab 02/18/17 Folic Acid 1 mg PO DAILY #30 tab 02/18/17 Furosemide [Lasix] 40 mg PO DAILY #30 tab 02/18/17 Isosorbide Mononitrate ER [Imdur 30 mg PO DAILY #30 tab 02/18/17 ER] Multimineral/Multivitamin 1 tab PO DAILY #30 tab 02/18/17 [Therapeutic-M Tab] Promethazine DM [Phenergan DM 5 ml PO Q6 PRN #1 bottle 02/18/17 Syrup] - Allergies Allergies/Adverse Reactions: Allergies Allergy/AdvReac Type Severity Reaction Status Date / Time [facility] AdvReac NAUSEA Verified 02/19/17 08:05 Review of Systems ROS Statement: Except As Marked, All Systems Reviewed And Found Negative Cardiovascular: Positive for: Chest Pain (bilateral) Respiratory: Positive for: Shortness of Breath. Negative for: Cough, Other ( orthopnea) Musculoskeletal: Negative for: Other (new leg swelling) Physical Exam - Reviewed Nursing Documentation Reviewed: Yes Vital Signs Reviewed: Yes - Physical Exam Appears: Positive for: Non-toxic, No Acute Distress Head Exam: Positive for: ATRAUMATIC, NORMOCEPHALIC Skin: Positive for: Normal Color, Warm Eye Exam: Positive for: Normal appearance, EOMI, PERRL ENT: Positive for: Normal ENT Inspection Neck: Positive for: Normal, Painless ROM, Supple Cardiovascular/Chest: Positive for: Irregularly Irregular Respiratory: Positive for: Wheezing (bilateral wheezing) Gastrointestinal/Abdominal: Positive for: Normal Exam, Soft. Negative for: Tenderness Back: Positive for: Normal Inspection Extremity: Positive for: Normal ROM, Pedal Edema (no new leg swelling ). Negative for: Deformity Neurologic/Psych: Positive for: Alert, Oriented - Laboratory Results Result Diagrams: 02/19/17 08:25 02/19/17 08:25 - ECG ECG: Positive for: Interpreted By Me, Viewed By Me ECG Rhythm: Positive for: Atrial Fibrillation Rate: 59 O2 Sat by Pulse Oximetry: 99 (RA) Pulse Ox Interpretation: Normal Medical Decision Making Medical Decision Making: Time: --08:15 Impression: --76 y/o male with CHF, Asthma, and Chest pain Plan: --ProBNP --Labs --Troponin I --EKG --PTT --PT --Chest X-ray --Albuterol 3 ml INH --methylprednisolone 125mg IVP --Peak Flow pre/post Accession No. : [id number] Patient Name / ID : OLY Fernando / [id number] Exam Date : 02/19/2017 08:17:35 ( Approved ) Study Comment : Sex / Age : M / 76Y Creator : Gabriel Treadwell MD Dictator : Gabriel Treadwell MD Portfolio Assistant : Equipment Maintenance Technician : Gabriel Treadwell MD Approver2 : Report Date : 02/19/2017 08:50:01 My Comment : HISTORY: SOB COMPARISON: No prior. FINDINGS: LUNGS: No active pulmonary disease. PLEURA: No significant pleural effusion identified, no pneumothorax apparent. CARDIOVASCULAR: Normal. Status post CABG. OSSEOUS STRUCTURES: No significant abnormalities. VISUALIZED UPPER ABDOMEN: Normal. OTHER FINDINGS: None. IMPRESSION: No active disease. Scribe Attestation: Documented by Low Gavin acting as a scribe for Akosua Henson MD. Provider Attestation: All medical record entries made by the Scribe were at my direction and personally dictated by me. I have reviewed the chart and agree that the record accurately reflects my personal performance of the history, physical exam, medical decision making, and the department course for this patient. I have also personally directed, reviewed, and agree with the discharge instructions and disposition. Disposition - Clinical Impression Clinical Impression: Chest pain, Atrial fibrillation with controlled ventricular response, Asthma exacerbation - Patient ED Disposition Is Patient to be Admitted: Yes - Disposition Disposition Time: 12:06 Condition: STABLE - Pt Status Changed To: Hospital Disposition Of: Inpatient - Admit Certification Admit to Inpatient:: After my assessment, the patient will require hospitalization for at least two midnights. This is because of the severity of symptoms shown, intensity of services needed, and/or the medical risk in this patient being treated as an outpatient. - POA Present On Arrival: None
--- NOTE | 2017-02-19 08:51 | RAD ---
HISTORY: SOB COMPARISON: No prior. FINDINGS: LUNGS: No active pulmonary disease. PLEURA: No significant pleural effusion identified, no pneumothorax apparent. CARDIOVASCULAR: Normal. Status post CABG. OSSEOUS STRUCTURES: No significant abnormalities. VISUALIZED UPPER ABDOMEN: Normal. OTHER FINDINGS: None. IMPRESSION: No active disease.
[2017-02-19 08:56] LABS: B-TYPE NATRIURETIC PEPTIDE 4520 pg/ml (0-900)
[2017-02-19 09:10] LABS: ALB/GLOB RATIO 1.2 (1.0-2.1); ALBUMIN 3.3 g/dL (3.5-5.0); BLOOD UREA NITROGEN 54 mg/dl (9-20); CALCIUM 8.2 mg/dL (8.4-10.2); GFR AFRICAN-AMERICAN > 60; GFR NON-AFRICAN AMERICAN 54
[2017-02-19 09:11] LABS: ALT/SGPT 45 U/L (21-72); AST/SGOT 22 U/L (17-59)
[2017-02-19 09:14] LABS: INR 1.2 (0.9-1.2); PARTIAL THROMBOPLASTIN TIME 25.6 Seconds (25.6-37.1); PROTHROMBIN TIME 13.8 Seconds (9.8-13.1)
[2017-02-19 10:57] LABS: BANDS 2 % (0-2); LYMPHOCYTE 8 % (20-50); MONOCYTE 10 % (0-10); NEUTROPHIL 80 % (42-75); PLATELET ESTIMATE NORMAL (NORMAL); TOTAL CELLS COUNTED 100
[2017-02-19 10:59] LABS: ANISOCYTOSIS SLIGHT; BURR CELLS SLIGHT; HYPOCHROMIC SLIGHT; OVALOCYTES SLIGHT; TOXIC GRANULATION PRESENT
--- NOTE | 2017-02-19 12:36 | CP.PCM.CON ---
History of Present Illness - History of Present Illness History of Present Illness: 76 YR OLD MALE REFERRED FOR PULMONARY CONSULT BY DR BURNETT BECAUSE OF SHORTNESS OF BREATH AND CHEST DISCOMFORT X 1 DAY.HE WAS DISCHARGED FROM [facility] LESS THAN 24 HRS AGO FOLLOWING RX FOR CHF AND COPD EXACERBATION. HE C/O PERSISTENT SOB BUT NO CHEST PAINS AT PRESENT. 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[employer] Alcohol: Other Home Situation {Lives}: Alone - CARDIAC Hx Atrial Fibrillation: Yes Hx Congestive Heart Failure: Yes Hx Hypercholesterolemia: Yes Hx Hypertension: Yes - PULMONARY Hx Bronchitis: Yes Hx Chronic Obstructive Pulmonary Disease (COPD): Yes Hx Emphysema: Yes Hx Pneumonia: Yes - NEUROLOGICAL Hx Dementia: Yes - HEENT Hx HEENT Problems: Yes (Wear eyeglasses.) - RENAL Hx Chronic Kidney Disease: Yes (renal failure) - ENDOCRINE/METABOLIC Hx Endocrine Disorders: No - HEMATOLOGICAL/ONCOLOGICAL Hx Human Immunodeficiency Virus (HIV): No - INTEGUMENTARY Hx Dermatological Problems: No - MUSCULOSKELETAL/RHEUMATOLOGICAL Hx Arthritis: Yes - GASTROINTESTINAL Hx Gastritis: Yes - GENITOURINARY/GYNECOLOGICAL Hx Genitourinary Disorders: No - PSYCHIATRIC Hx Psychophysiologic Disorder: No Hx Substance Use: No - SURGICAL HISTORY Hx Coronary Artery Bypass Graft: Yes (in 2005) - ANESTHESIA Hx Anesthesia: Yes Hx Anesthesia Reactions: No Hx Malignant Hyperthermia: No Meds Allergies/Adverse Reactions: Allergies Allergy/AdvReac Type Severity Reaction Status Date / Time amlodipine [From [facility]] AdvReac NAUSEA Verified 02/19/17 08:05 - Medications Medications: SEE MED REC Physical Exam - Respiratory Exam Respiratory Exam: Decreased Breath Sounds, Prolonged Expiratory Phase, Rales, Wheezes, Respiratory Distress - Cardiovascular Exam Cardiovascular Exam: Bradycardia, JVD - Exam Exam: NORMAL INSPECTION - Extremities Exam Extremities exam: Positive for: pedal edema Results - Vital Signs Recent Vital Signs: Last Vital Signs Temp 98.4 F 02/19/17 07:59 Pulse 63 02/19/17 12:13 Resp 20 02/19/17 12:13 BP 182/99 H 02/19/17 12:13 Pulse Ox 96 02/19/17 12:13 - Labs Result Diagrams: 02/19/17 08:25 02/19/17 08:25 Labs: Laboratory Results - last 24 hr 02/19/17 02/19/17 02/19/17 08:25 08:25 08:25 WBC 14.1 H D RBC 3.61 L Hgb 10.8 L Hct 33.0 L MCV 91.5 MCH 29.9 MCHC 32.6 L RDW 13.7 Plt Count 241 MPV 8.3 Neut % (Auto) 83.4 H Lymph % (Auto) 5.9 L Wheeler % (Auto) 10.3 H Eos % (Auto) 0.0 Baso % (Auto) 0.4 Neut # 11.7 H Lymph # 0.8 L Wheeler # 1.5 H Eos # 0.0 Baso # 0.1 Neutrophils % (Manual) 80 H Band Neutrophils % 2 Lymphocytes % (Manual) 8 L Monocytes % (Manual) 10 Toxic Granulation Present Platelet Estimate Normal Hypochromasia (manual) Slight Anisocytosis (manual) Slight Ovalocytes Slight Nubieber Cells Slight PT 13.8 H INR 1.2 APTT 25.6 Sodium 135 Potassium 4.5 Chloride 98 Carbon Dioxide 26 Anion Gap 16 BUN 54 H Creatinine 1.3 Est GFR ( Amer) > 60 Est GFR (Non-Af Amer) 54 Random Glucose 147 H Calcium 8.2 L Total Bilirubin 0.7 AST 22 ALT 45 Alkaline Phosphatase 86 Troponin I 0.0210 NT-Pro-B Natriuret Pep 4520 H Total Protein 6.0 L Albumin 3.3 L Globulin 2.7 Albumin/Globulin Ratio 1.2 Assessment & Plan - Assessment and Plan (Free Text) Assessment: ACUTE CHF ATRIAL FIB COPD EXAC Plan: DIURESES O2 SUPPLEMENTATION DUONEB RX CARDIAC CONSULTATION FLUID RESTRICTION LOW NA DIET WILL GIVE EMPERIC ANTIBIOTIC RX WILL FOLLOW WITH YOU - Date & Time Date: 02/19/17 Time: 12:46
[2017-02-19] MEDS ORDERED: Sodium Chloride 3% for Inhalation 4 ML VIAL.NEB IH PRN (12:58)
--- NOTE | 2017-02-19 13:03 | CARD ---
APPROVED REPORT EKG Measurement Heart [id number] <Conclusion> Atrial fibrillation with slow ventricular response Nonspecific T wave abnormality Abnormal ECG
[2017-02-19] MEDS: Multivitamin With Minerals Tab PO SCH (15:11)
[2017-02-19] MEDS ORDERED: methylPREDNISolone 80 MG in Sodium Chloride 0.9% 50 ML IV SCH (17:00)
[2017-02-19] MEDS: Albuterol-Ipratrop 3 mg / 0.5 (3 ml) UD INH SCH (19:28)
[2017-02-20] MEDS: Albuterol-Ipratrop 3 mg / 0.5 (3 ml) UD INH SCH ×4 (01:00→19:36)
[2017-02-20] MEDS: Promethazine DM 6.25 mg-15 mg/5 ml Syrup PO PRN ×3 (01:42→17:44)
[2017-02-20] MEDS: Multivitamin With Minerals Tab PO SCH (08:46)
--- NOTE | 2017-02-20 10:26 | CP.PCM.PN ---
Subjective - Date & Time of Evaluation Date of Evaluation: 02/20/17 Time of Evaluation: 10:31 - Subjective Subjective: STILL COUGHING SOB SLIGHTLY IMPROVED Objective - Vital Signs/Intake and Output Vital Signs (last 24 hours): Temp Pulse Resp BP Pulse Ox 97.1 F L 83 18 126/69 98 02/20/17 08:00 02/20/17 08:00 02/20/17 08:00 02/20/17 08:44 02/20/17 08:00 Intake and Output: 02/20/17 02/20/17 06:59 18:59 Output Total 250 Balance -250 - Medications Medications: Current Medications Albuterol/Ipratropium (Duoneb 3 Mg/0.5 Mg (3 Ml) Ud) 3 ml INH RQ6 [facility] Last Admin: 02/20/17 08:07 Dose: Not Given Apixaban (Eliquis) 5 mg PO BID [facility] PRN Reason: Protocol Last Admin: 02/20/17 08:45 Dose: 5 mg Aspirin (Aspirin Chewable) 81 mg PO DAILY [facility] Last Admin: 02/20/17 08:45 Dose: 81 mg Atorvastatin Calcium (Lipitor) 40 mg PO DAILY [facility] Last Admin: 02/20/17 08:45 Dose: 40 mg Carvedilol (Coreg) 25 mg PO Q12H [facility] Last Admin: 02/20/17 01:10 Dose: 25 mg Furosemide (Lasix) 40 mg IVP DAILY [facility] Last Admin: 02/20/17 08:44 Dose: 40 mg Isosorbide Mononitrate (Imdur Er) 30 mg PO DAILY [facility] Last Admin: 02/20/17 08:47 Dose: 30 mg Methylprednisolone (Solu-Medrol) 80 mg IV Q8 [facility] Last Admin: 02/20/17 10:13 Dose: 80 mg Multivitamins/Minerals (Therapeutic-M Tab) 1 tab PO DAILY [facility] Last Admin: 02/20/17 08:46 Dose: 1 tab Promethazine HCl/Dextromethorphan (Phenergan Dm Syrup) 5 ml PO Q6 PRN PRN Reason: for cough Last Admin: 02/20/17 10:18 Dose: 5 ml Valsartan (Diovan) 320 mg PO DAILY [facility] Last Admin: 02/20/17 08:46 Dose: 320 mg - Labs Labs: 02/19/17 08:25 02/19/17 08:25 PT 13.8 Seconds (9.8-13.1) H 02/19/17 08:25 INR 1.2 (0.9-1.2) 02/19/17 08:25 APTT 25.6 Seconds (25.6-37.1) 02/19/17 08:25 - Constitutional Appears: Chronically Ill - Head Exam Head Exam: ATRAUMATIC, NORMAL INSPECTION, NORMOCEPHALIC - Eye Exam Eye Exam: EOMI, Normal appearance, PERRL Pupil Exam: NORMAL ACCOMODATION, PERRL - ENT Exam ENT Exam: Mucous Membranes Moist, Normal Exam - Neck Exam Neck Exam: Full ROM, Normal Inspection. absent: Lymphadenopathy - Respiratory Exam Respiratory Exam: Decreased Breath Sounds, Prolonged Expiratory Phase, Rales, NORMAL BREATHING PATTERN - Cardiovascular Exam Cardiovascular Exam: Irregular Rhythm, +S1, +S2. absent: Murmur - GI/Abdominal Exam GI & Abdominal Exam: Soft, Normal Bowel Sounds. absent: Tenderness - Rectal Exam Rectal Exam: NORMAL INSPECTION - Extremities Exam Extremities Exam: Full ROM, Normal Capillary Refill, Normal Inspection. absent : Joint Swelling, Pedal Edema - Back Exam Back Exam: NORMAL INSPECTION - Neurological Exam Neurological Exam: Alert, Awake, CN II-XII Intact, Normal Gait, Oriented x3 - Psychiatric Exam Psychiatric exam: Anxious Additional comments: FORGETFUL - Skin Skin Exam: Dry, Intact, Normal Color, Warm Assessment and Plan - Assessment and Plan (Free Text) Assessment: CHF ARRYTHMIAS COPD EXAC ANXIETY Plan: CONTINUE CURRENT RX CARDIOLOGY EVAL
--- NOTE | 2017-02-20 14:35 | CP.PCM.CON ---
History of Present Illness - History of Present Illness History of Present Illness: PT ADMITTED WITH RECURRENT ANTERIOR CP. PAIN IS ACROSS ANTERIOR CHEST AND STERNAL REGION. NO RADIATION. OCCURS SPORADICALLY. PT HAS A KNOW HX OF CAD AND CABGX3 ABOUT 10 YRS AGO AT [facility]. PT IN RATE CONTROLLED AFIB. BP STABLE. ECHO IMAGES REVIEWED BY ME ARE LIMITED GIVEN COPD HOWEVER EF APPEARS NORMAL WITH MILD LVH. Review of Systems - Constitutional Constitutional: As Per HPI. absent: Anorexia, Chills, Daytime Sleepiness, Excessive Sweating, Fatigue, Fever, Frequent Falls, Headache, Increased Appetite , Lethargy, Malaise, Night Sweats, Snoring, Sleep Apnea, Weight Gain, Weight Loss, Weakness, Other - EENT Eyes: As Per HPI. absent: Blind Spots, Blurred Vision, Change in Vision, Decreased Night Vision, Diplopia, Discharge, Dry Eye, Exophthalmos, Floaters, Irritation, Itchy Eyes, Loss of Peripheral Vision, Pain, Photophobia, Requires Corrective Lenses, Sees Flashes, Spots in Vision, Tunnel Vision, Other Visual Disturbances, Loss of Vision, Other Ears: absent: As Per HPI, Decreased Hearing, Ear Discharge, Ear Pain, Tinnitus, Abnormal Hearing, Disequilibrium, Dizziness, Other Nose/Mouth/Throat: As Per HPI. absent: Epistaxis, Nasal Congestion, Nasal Discharge, Nasal Obstruction, Nasal Trauma, Nose Pain, Post Nasal Drip, Sinus Pain, Sinus Pressure, Bleeding Gums, Change in Voice, Dental Pain, Dry Mouth, Dysphagia, Halitosis, Hoarsness, Lip Swelling, Mouth Lesions, Mouth Pain, Odynophagia, Sore Throat, Throat Swelling, Tongue Swelling, Facial Pain, Neck Pain, Neck Mass, Other - Cardiovascular Cardiovascular: Chest Pain, Chest Pain at Rest, Chest Pain with Activity, Dyspnea, Dyspnea on Exertion. absent: As Per HPI, Acrocyanosis, Claudication, Diaphoresis, Edema, Irregular Heart Rhythm, Pain Radiating to Arm/Neck/Jaw, Leg Edema, Leg Ulcers, Lightheadedness, Orthopnea, Palpitations, Paroxysmal Nocturnal Dyspnea, Pedal Edema, Radiating Pain, Rapid Heart Rate, Slow Heart Rate, Syncope, Other - Respiratory Respiratory: Cough, Dyspnea, Dyspnea on Exertion, Wheezing. absent: As Per HPI , Hemoptysis, Snoring, Stridor, Pain on Inspiration, Chest Congestion, Excessive Mucous Production, Change in Mucous Color, Pain with Coughing, Other - Gastrointestinal Gastrointestinal: As Per HPI. absent: Abdominal Pain, Belching, Bloating, Change in Bowel Habits, Change in Stool Character, Coffee Ground Emesis, Constipation, Cramping, Diarrhea, Dyspepsia, Dysphagia, Early Satiety, Excessive Flatus, Fecal Incontinence, Heartburn, Hematemesis, Hematochezia, Loose Stools, Melena, Nausea, Odynophagia, Temesmus, Vomiting, Other - Genitourinary Genitourinary: As Per HPI. absent: Change in Urinary Stream, Difficulty Urinating, Dysuria, Flank Pain, Hematuria, Pyuria, Nocturia, Urinary Incontinence, Urinary Frequency, Urinary Hesitance, Urinary Urgency, Voiding Freq/Small Amts, Freq UTI, Hx Renal/Bladder Calculi, Hx /Renal Surgery, Bladder Distension, Other - Reproductive: Male Reproductive:Male: As Per HPI - Musculoskeletal Musculoskeletal: As Per HPI. absent: Abnormal Gait, Arthralgias, Atrophy, Back Pain, Deformity, Joint Swelling, Limited Range of Motion, Loss of Height, Muscle Cramps, Muscle Weakness, Myalgias, Neck Pain, Numbness, Radiating Pain into Limb, Stiffness, Tingling, Other - Integumentary Integumentary: As Per HPI. absent: Acne, Alopecia, Bleeding Lesions, Change in Hair, Change in Nails, Change in Pigmentation, Changing Lesions, Dry Skin, Erythema, Furuncle, Hirsutism, Lesions, New Lesions, Non-Healing Lesions, Photosensitivity, Pruritus, Rash, Skin Pain, Skin Ulcer, Sores, Striae, Swelling , Unusual Bruising, Wounds, Jaundice, Other - Neurological Neurological: As Per HPI. absent: Abnormal Gait, Abnormal Hearing, Abnormal Movements, Abnormal Speech, Behavioral Changes, Burning Sensations, Confusion, Convulsions, Disequilibrium, Dizziness, Numbness, Focal Weakness, Frequent Falls , Headaches, Lack of Coordination, Loss of Vision, Memory Loss, Paresthesias, Radicular Pain, Restless Legs, Sensory Deficit, Syncope, Tingling, Tremor, Vertigo, Weakness, Other Visual Disturbances, Other - Psychiatric Psychiatric: As Per HPI. absent: Abnormal Sleep Pattern, Anhedonia, Anxiety, Auditory Hallucinations, Behavioral Changes, Change in Appetite, Change in Libido, Confusion, Depression, Difficulty Concentrating, Hallucinations, Homicidal Ideation, Hopelessness, Irritability, Memory Loss, Mood Swings, Panic Attacks, Paranoia, Suicidal Ideation, Visual Hallucinations, Tactile Hallucinations, Other - Endocrine Endocrine: As Per HPI. absent: Change in Body Appearance, Change in Libido, Cold Intolorance, Deepening of Voice, Excessive Sweating, Fatigue, Flushing, Heat Intolorance, Increase in Ring/Shoe/Hat Size, Palpitations, Polydipsia, Polyphagia, Polyuria, Other - Hematologic/Lymphatic Hematologic: As Per HPI. absent: Easy Bleeding, Easy Bruising, Lymphadenopathy , Other Past Patient History - Tetanus Immunizations Tetanus Immunization: Unknown - Past Medical History & Family History Past Medical History?: Yes - Past Social History Smoking Status: Former Smoker Alcohol: None Drugs: Denies Home Situation {Lives}: With Family - CARDIAC Hx Cardiac Disorders: Yes (CABG X 3) Hx Atrial Fibrillation: Yes Hx Congestive Heart Failure: Yes Hx Hypercholesterolemia: Yes Hx Hypertension: Yes - PULMONARY Hx Bronchitis: Yes Hx Chronic Obstructive Pulmonary Disease (COPD): Yes Hx Pneumonia: Yes - NEUROLOGICAL Hx Dementia: Yes - HEENT Hx HEENT Problems: Yes (Wear eyeglasses.) - RENAL Hx Chronic Kidney Disease: Yes (renal failure) - ENDOCRINE/METABOLIC Hx Endocrine Disorders: No - HEMATOLOGICAL/ONCOLOGICAL Hx Human Immunodeficiency Virus (HIV): No - INTEGUMENTARY Hx Dermatological Problems: No - MUSCULOSKELETAL/RHEUMATOLOGICAL Hx Arthritis: Yes - GASTROINTESTINAL Hx Gastritis: Yes - GENITOURINARY/GYNECOLOGICAL Hx Genitourinary Disorders: No - PSYCHIATRIC Hx Psychophysiologic Disorder: No Hx Substance Use: No - SURGICAL HISTORY Hx Coronary Artery Bypass Graft: Yes (in 2005) - ANESTHESIA Hx Anesthesia: Yes Hx Anesthesia Reactions: No Hx Malignant Hyperthermia: No Meds Allergies/Adverse Reactions: Allergies Allergy/AdvReac Type Severity Reaction Status Date / Time amlodipine [From [facility]] AdvReac NAUSEA Verified 02/19/17 08:05 - Medications Medications: Current Medications Albuterol/Ipratropium (Duoneb 3 Mg/0.5 Mg (3 Ml) Ud) 3 ml INH RQ6 [facility] Last Admin: 02/20/17 13:51 Dose: 3 ml Apixaban (Eliquis) 5 mg PO BID [facility] PRN Reason: Protocol Last Admin: 02/20/17 08:45 Dose: 5 mg Aspirin (Aspirin Chewable) 81 mg PO DAILY [facility] Last Admin: 02/20/17 08:45 Dose: 81 mg Atorvastatin Calcium (Lipitor) 40 mg PO DAILY [facility] Last Admin: 02/20/17 08:45 Dose: 40 mg Carvedilol (Coreg) 25 mg PO Q12 [facility] Furosemide (Lasix) 40 mg IVP DAILY [facility] Last Admin: 02/20/17 08:44 Dose: 40 mg Isosorbide Mononitrate (Imdur Er) 30 mg PO DAILY [facility] Last Admin: 02/20/17 08:47 Dose: 30 mg Methylprednisolone (Solu-Medrol) 80 mg IV Q8 [facility] Last Admin: 02/20/17 10:13 Dose: 80 mg Multivitamins/Minerals (Therapeutic-M Tab) 1 tab PO DAILY [facility] Last Admin: 02/20/17 08:46 Dose: 1 tab Promethazine HCl/Dextromethorphan (Phenergan Dm Syrup) 5 ml PO Q6 PRN PRN Reason: for cough Last Admin: 02/20/17 10:18 Dose: 5 ml Valsartan (Diovan) 320 mg PO DAILY [facility] Physical Exam - Constitutional Appears: Well - Head Exam Head Exam: ATRAUMATIC, NORMAL INSPECTION, NORMOCEPHALIC - Eye Exam Eye Exam: EOMI, Normal appearance, PERRL. absent: Conjunctival injection, Nystagmus, Periorbital swelling, Periorbital tenderness, Scleral icterus Pupil Exam: NORMAL ACCOMODATION, PERRL. absent: Fixed, Irregular, Miosis, Mydriatic, Unequal - ENT Exam ENT Exam: Mucous Membranes Moist, Normal Exam. absent: Mucous Membranes Dry, Normal External Ear Exam, Normal Oropharynx, TM's Normal Bilaterally - Neck Exam Neck exam: Positive for: Normal Inspection. Negative for: Full Rom, Lymphadenopathy, Meningismus, Tenderness, Thyromegaly - Respiratory Exam Respiratory Exam: Decreased Breath Sounds, Wheezes, NORMAL BREATHING PATTERN. absent: Accessory Muscle Use, Chest Wall Tenderness, Clear to Auscultation Bilateral, Prolonged Expiratory Phase, Rales, Rhonchi, Respiratory Distress, Stridor - Cardiovascular Exam Cardiovascular Exam: Bradycardia, Irregular Rhythm, +S1, +S2, Systolic Murmur. absent: Tachycardia, Clicks, Diastolic murmur, Gallop, REGULAR RHYTHM, JVD, RRR , Rubs, +S4 - GI/Abdominal Exam GI & Abdominal Exam: Normal Bowel Sounds, Soft. absent: Bruit, Diminished Bowel Sounds, Distended, Firm, Guarding, Hernia, Hyperactive Bowel Sounds, Hypoactive Bowel Sounds, Mass, Organomegaly, Pulsatile Mass, Rebound, Rigid, Tenderness - Rectal Exam Rectal Exam: Deferred - Extremities Exam Extremities exam: Positive for: pedal edema, pedal pulses present. Negative for : calf tenderness, full ROM, joint swelling, normal capillary refill, normal inspection, tenderness - Back Exam Back exam: NORMAL INSPECTION. absent: CVA tenderness (L), CVA tenderness (R), FULL ROM, muscle spasm, paraspinal tenderness, rash noted, tenderness - Neurological Exam Neurological exam: Alert, CN II-XII Intact, Normal Gait, Oriented x3, Reflexes Normal - Psychiatric Exam Psychiatric exam: Normal Affect, Normal Mood - Skin Skin Exam: Dry, Intact, Normal Color, Warm Results - Vital Signs Recent Vital Signs: Last Vital Signs Temp 97.5 F L 02/20/17 12:00 Pulse 59 L 02/20/17 14:16 Resp 18 02/20/17 12:00 BP 118/58 L 02/20/17 12:00 Pulse Ox 99 02/20/17 14:16 - Labs Result Diagrams: 02/22/17 04:45 02/22/17 04:45 Assessment & Plan (1) CAD (coronary artery disease) Status: Acute (2) Atrial fibrillation with controlled ventricular response Status: Acute (3) Chest pain Status: Acute (4) COPD exacerbation Status: Acute Priority: High - Assessment and Plan (Free Text) Plan: PT WITH RECURRENT CP AND SOB. ECHO IMAGES ARE SUBOPTIMAL GIVEN BODY HABITUS. GIVEN HX OF CAD AND RECURRENT CP WILL NEED CARDIAC CATH. WILL DO CATH TOMORROW AT [facility]. HOLD ANTICOAUGULATION TOMORROW AND NPO PAST [place].
[2017-02-20] MEDS: Fluticasone-Salmeterol 250-50mcg Diskus IH SCH ×2 (16:00→21:36)
--- NOTE | 2017-02-20 21:07 | CP.PCM.PN ---
Subjective - Date & Time of Evaluation Date of Evaluation: 02/20/17 Time of Evaluation: 11:00 - Subjective Subjective: Patient has less SOB. Has no chest pain Claims that he had smoked for a long time Not on any MDI's Objective - Vital Signs/Intake and Output Vital Signs (last 24 hours): Temp Pulse Resp BP Pulse Ox 97.6 F 66 16 138/77 95 02/20/17 20:08 02/20/17 20:08 02/20/17 20:08 02/20/17 20:08 02/20/17 20:08 Intake and Output: 02/20/17 02/21/17 18:59 06:59 Intake Total 1000 Output Total 1200 Balance -200 - Medications Medications: Current Medications Albuterol/Ipratropium (Duoneb 3 Mg/0.5 Mg (3 Ml) Ud) 3 ml INH RQ6 [facility] Last Admin: 02/20/17 19:36 Dose: 3 ml Apixaban (Eliquis) 5 mg PO BID [facility] PRN Reason: Protocol Last Admin: 02/20/17 08:45 Dose: 5 mg Aspirin (Aspirin Chewable) 81 mg PO DAILY [facility] Last Admin: 02/20/17 08:45 Dose: 81 mg Atorvastatin Calcium (Lipitor) 40 mg PO DAILY [facility] Last Admin: 02/20/17 08:45 Dose: 40 mg Carvedilol (Coreg) 25 mg PO Q12 [facility] Furosemide (Lasix) 40 mg IVP DAILY [facility] Last Admin: 02/20/17 08:44 Dose: 40 mg Isosorbide Mononitrate (Imdur Er) 30 mg PO DAILY [facility] Last Admin: 02/20/17 08:47 Dose: 30 mg Methylprednisolone (Solu-Medrol) 80 mg IV Q8 [facility] Last Admin: 02/20/17 17:41 Dose: 80 mg Multivitamins/Minerals (Therapeutic-M Tab) 1 tab PO DAILY [facility] Last Admin: 02/20/17 08:46 Dose: 1 tab Promethazine HCl/Dextromethorphan (Phenergan Dm Syrup) 5 ml PO Q6 PRN PRN Reason: for cough Last Admin: 02/20/17 17:44 Dose: 5 ml Fluticasone/Salmeterol (Advair Diskus 250/50) 1 puff IH Q12 [facility] Last Admin: 02/20/17 16:00 Dose: 1 puff Valsartan (Diovan) 320 mg PO DAILY [facility] - Labs Labs: 02/19/17 08:25 02/19/17 08:25 PT 13.8 Seconds (9.8-13.1) H 02/19/17 08:25 INR 1.2 (0.9-1.2) 02/19/17 08:25 APTT 25.6 Seconds (25.6-37.1) 02/19/17 08:25 - Head Exam Head Exam: NORMAL INSPECTION - Eye Exam Eye Exam: Normal appearance - ENT Exam ENT Exam: Mucous Membranes Moist - Respiratory Exam Respiratory Exam: Clear to Ausculation Bilateral - Cardiovascular Exam Cardiovascular Exam: Irregular Rhythm - GI/Abdominal Exam GI & Abdominal Exam: Normal Bowel Sounds - Neurological Exam Neurological Exam: Awake, CN II-XII Intact - Psychiatric Exam Psychiatric exam: Normal Mood Assessment and Plan (1) CHF (congestive heart failure) Status: Acute (2) Atrial fibrillation with controlled ventricular response Status: Acute (3) Moderate COPD (chronic obstructive pulmonary disease) Status: Acute (4) CAD (coronary artery disease) Status: Acute - Assessment and Plan (Free Text) Plan: Cont meds check probnp troponin echo advair combivent
[2017-02-21] MEDS: Albuterol-Ipratrop 3 mg / 0.5 (3 ml) UD INH SCH ×4 (01:05→19:33)
[2017-02-21 05:25] LABS: BASO % 0.1 % (0.0-2.0); HEMOGLOBIN 9.7 g/dL (12.0-18.0); LYMPH # 0.5 K/uL (1.0-4.3); LYMPH % 4.8 % (20.0-40.0); MEAN CELL VOLUME 91.4 fl (80.0-94.0); MEAN CORPUSCULAR HEMOGLOBIN 30.3 pg (27.0-31.0); MEAN CORPUSCULAR HGB CONC 33.2 g/dL (33.0-37.0); MEAN PLATELET VOLUME 8.7 fl (7.2-11.7); MONO # 0.5 K/uL (0.0-0.8); MONO % 4.8 % (0.0-10.0); NEUT # 10.1 K/uL (1.8-7.0); NEUT % 90.3 % (50.0-75.0); PLATELET COUNT 187 K/uL (130-400); RED CELL DISTRIBUTION WIDTH 13.6 % (11.5-14.5); WHITE BLOOD COUNT 11.2 K/uL (4.8-10.8)
[2017-02-21 05:32] LABS: INR 1.1 (0.9-1.2); PROTHROMBIN TIME 12.7 Seconds (9.8-13.1)
[2017-02-21 05:33] LABS: ALB/GLOB RATIO 1.2 (1.0-2.1); MAGNESIUM 2.3 MG/DL (1.6-2.3)
[2017-02-21 05:40] LABS: TROPONIN I 0.016 ng/mL (0.00-0.120)
--- NOTE | 2017-02-21 09:04 | CP.PCM.PN ---
Subjective - Date & Time of Evaluation Date of Evaluation: 02/21/17 Time of Evaluation: 09:06 - Subjective Subjective: STILL C/O RECURRENT CHEST DISCOMFORT AND SOB SCHEDULED FOR CARDIAC CATH TODAY Objective - Vital Signs/Intake and Output Vital Signs (last 24 hours): Temp Pulse Resp BP Pulse Ox 97.8 F 62 18 156/79 H 93 L 02/21/17 08:00 02/21/17 08:00 02/21/17 08:00 02/21/17 08:00 02/21/17 08:00 - Medications Medications: Current Medications Albuterol/Ipratropium (Duoneb 3 Mg/0.5 Mg (3 Ml) Ud) 3 ml INH RQ6 [facility] Last Admin: 02/21/17 07:37 Dose: 3 ml Apixaban (Eliquis) 5 mg PO BID [facility] PRN Reason: Protocol Last Admin: 02/20/17 08:45 Dose: 5 mg Aspirin (Aspirin Chewable) 81 mg PO DAILY [facility] Last Admin: 02/20/17 08:45 Dose: 81 mg Atorvastatin Calcium (Lipitor) 40 mg PO DAILY [facility] Last Admin: 02/20/17 08:45 Dose: 40 mg Carvedilol (Coreg) 25 mg PO Q12 [facility] Last Admin: 02/20/17 21:39 Dose: 25 mg Furosemide (Lasix) 40 mg IVP DAILY [facility] Last Admin: 02/20/17 08:44 Dose: 40 mg Isosorbide Mononitrate (Imdur Er) 30 mg PO DAILY [facility] Last Admin: 02/20/17 08:47 Dose: 30 mg Methylprednisolone (Solu-Medrol) 80 mg IV Q8 [facility] Last Admin: 02/21/17 00:11 Dose: 80 mg Multivitamins/Minerals (Therapeutic-M Tab) 1 tab PO DAILY [facility] Last Admin: 02/20/17 08:46 Dose: 1 tab Promethazine HCl/Dextromethorphan (Phenergan Dm Syrup) 5 ml PO Q6 PRN PRN Reason: for cough Last Admin: 02/20/17 17:44 Dose: 5 ml Fluticasone/Salmeterol (Advair Diskus 250/50) 1 puff IH Q12 [facility] Last Admin: 02/20/17 21:36 Dose: 1 puff Valsartan (Diovan) 320 mg PO DAILY [facility] - Labs Labs: 02/21/17 04:30 02/21/17 04:30 PT 12.7 Seconds (9.8-13.1) 02/21/17 04:30 INR 1.1 (0.9-1.2) 02/21/17 04:30 APTT 25.6 Seconds (25.6-37.1) 02/19/17 08:25 - Constitutional Appears: Chronically Ill - Head Exam Head Exam: ATRAUMATIC, NORMAL INSPECTION, NORMOCEPHALIC - Eye Exam Eye Exam: EOMI, Normal appearance, PERRL Pupil Exam: NORMAL ACCOMODATION, PERRL - ENT Exam ENT Exam: Mucous Membranes Moist, Normal Exam - Neck Exam Neck Exam: Full ROM, Normal Inspection. absent: Lymphadenopathy - Respiratory Exam Respiratory Exam: Decreased Breath Sounds, Rales, Wheezes - Cardiovascular Exam Cardiovascular Exam: Irregular Rhythm, +S1, +S2. absent: Murmur - GI/Abdominal Exam GI & Abdominal Exam: Soft, Normal Bowel Sounds. absent: Tenderness - Rectal Exam Rectal Exam: NORMAL INSPECTION - Extremities Exam Extremities Exam: Full ROM, Normal Capillary Refill, Normal Inspection, Pedal Edema. absent: Joint Swelling - Back Exam Back Exam: NORMAL INSPECTION - Neurological Exam Neurological Exam: Alert, Awake, CN II-XII Intact, Normal Gait, Oriented x3 - Psychiatric Exam Psychiatric exam: Normal Affect, Normal Mood - Skin Skin Exam: Dry, Intact, Normal Color, Warm Assessment and Plan - Assessment and Plan (Free Text) Assessment: CHF CHEST PAIN--ASHD COPD EXAC Plan: CONTINUE RX ORDERED
[2017-02-21 11:17] LABS: LYMPHOCYTE 5 % (20-50); METAMYELOCYTE 1 % (0-0); MONOCYTE 4 % (0-10); MYELOCYTE 1 % (0-0); NEUTROPHIL 89 % (42-75); PLATELET ESTIMATE NORMAL (NORMAL); TOTAL CELLS COUNTED 100
[2017-02-21 11:18] LABS: HYPOCHROMIC SLIGHT; OVALOCYTES SLIGHT; TEARDROP CELLS SLIGHT; TOXIC GRANULATION PRESENT
[2017-02-21] MEDS: Fluticasone-Salmeterol 250-50mcg Diskus IH SCH (11:21)
[2017-02-21] MEDS: Multivitamin With Minerals Tab PO SCH (11:22)
--- NOTE | 2017-02-21 14:45 | PQF GENQUE ---
Dr. Burnett, If in agreement :Please specify the type and acuity of heart failure in your progress notes: 1. 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 Appears: Positive for: Non-toxic, No Acute Distress Respiratory: Positive for: Wheezing (bilateral wheezing) O2 Sat by Pulse Oximetry: 99 (RA) H and P: absent to date Pulmonary consult: REFERRED FOR PULMONARY CONSULT BY DR BURNETT BECAUSE OF SHORTNESS OF BREATH AND CHEST DISCOMFORT X 1 DAY.HE WAS DISCHARGED FROM [facility] LESS THAN 24 HRS AGO FOLLOWING RX FOR CHF AND COPD EXACERBATION. HE C/O PERSISTENT SOB Respiratory Exam: Decreased Breath Sounds, Prolonged Expiratory Phase, Rales, Wheezes, Respiratory Distress Assessment: ACUTE CHF ,ATRIAL FIB ,COPD EXAC Plan: DIURESES ,O2 SUPPLEMENTATION ,DUONEB RX CARDIAC CONSULTATION ,FLUID RESTRICTION ,LOW NA DIET , WILL GIVE EMPERIC ANTIBIOTIC RX 02/20 Cardiology consult: Plan : (1) CAD (coronary artery disease) Status: Acute (2) Atrial fibrillation with controlled ventricular response Status: Acute (3) Chest pain Status: Acute (4) COPD exacerbation Status: Acute Priority: High Assessment and Plan: PT WITH RECURRENT CP. GIVEN HX OF CAD WILL NEED CARDIAC CATH. WILL DO CATH TOMORROW AT [facility] 02/20 Dr. Schulz's note(covering for Dr. Burnett); CHF: Status Acute Pro BNP: 4520 02/19 CXR: Impression : No active disease. Lasix IV stat and daily, Coreg This form is a permanent part of the medical record Clarification of your documentation is requested to better reflect the severity of illness and intensity of treatment of your patient. Indicators present [] Specify: [] [] Specify: [] [] Specify: [] [] Specify: [] Location in the medical record that reflects the above clinical findings: [] Treatment Provided: [] PHYSICIAN'S RESPONSE Based on your medical judgment of the clinical indicators outlined above please clarify the following: [] Practitioner response [] If unable to determine, please check the box, sign and date. Present On Admission (POA) Indicator: [] Present at the time of admission [] Not present at the time of admission [] Clinically Undetermined In responding to this query, please exercise your independent professional judgment. The fact that a question is asked does not imply that any particular answer is desired or expected. Thank you for your clarification on this documentation. If you have any questions please call. * Thank you, Celestina Whaley RN ext. #[phone] MTDD
--- NOTE | 2017-02-21 14:54 | PQF GENQUE ---
Dr. Caruso, Please clarify the stage of the chronic kidney disease: if in agreement with the diagnosis Stage 1 Stage 2 (mild) Stage 3 (moderate) Stage 4 (severe) Stage 5 Other (please specify) Clinically unable to determine Unknown OR: Disagree with the Diagnosis H and P absent to date Pulmonary and Cardiology consults: hx. CKD: Yes (renal failure) BUN:54->58 Creatinine:1.3->14 Est GFR ( Amer/Non-Af Amer): >60/54->60/49 This form is a permanent part of the medical record Clarification of your documentation is requested to better reflect the severity of illness and intensity of treatment of your patient. Indicators present [] Specify: [] [] Specify: [] [] Specify: [] [] Specify: [] Location in the medical record that reflects the above clinical findings: [] Treatment Provided: [] PHYSICIAN'S RESPONSE Based on your medical judgment of the clinical indicators outlined above please clarify the following: [] Practitioner response [] If unable to determine, please check the box, sign and date. Present On Admission (POA) Indicator: [] Present at the time of admission [] Not present at the time of admission [] Clinically Undetermined In responding to this query, please exercise your independent professional judgment. The fact that a question is asked does not imply that any particular answer is desired or expected. Thank you for your clarification on this documentation. If you have any questions please call. * Thank you, Celestina Wahley RN ext. #[phone] MTDD
--- NOTE | 2017-02-21 19:18 | CP.PCM.PN ---
Subjective - Date & Time of Evaluation Date of Evaluation: 02/21/17 Time of Evaluation: 19:15 - Subjective Subjective: informed written consent obtained and pt taken to the orthodontic laboratory technician. no complaints today. pt awaiting procedure. Objective - Vital Signs/Intake and Output Vital Signs (last 24 hours): Temp Pulse Resp BP Pulse Ox 97.2 F L 59 L 20 134/66 93 L 02/21/17 15:45 02/21/17 15:45 02/21/17 15:45 02/21/17 15:45 02/21/17 15:45 - Medications Medications: Current Medications Albuterol/Ipratropium (Duoneb 3 Mg/0.5 Mg (3 Ml) Ud) 3 ml INH RQ6 [facility] Last Admin: 02/21/17 13:12 Dose: 3 ml Apixaban (Eliquis) 5 mg PO BID [facility] PRN Reason: Protocol Last Admin: 02/20/17 08:45 Dose: 5 mg Aspirin (Aspirin Chewable) 81 mg PO DAILY [facility] Last Admin: 02/21/17 11:21 Dose: 81 mg Atorvastatin Calcium (Lipitor) 40 mg PO DAILY [facility] Last Admin: 02/21/17 11:23 Dose: 40 mg Carvedilol (Coreg) 25 mg PO Q12 [facility] Last Admin: 02/21/17 11:21 Dose: 25 mg Furosemide (Lasix) 40 mg IVP DAILY [facility] Last Admin: 02/21/17 11:23 Dose: 40 mg Isosorbide Mononitrate (Imdur Er) 30 mg PO DAILY [facility] Last Admin: 02/21/17 11:22 Dose: 30 mg Methylprednisolone (Solu-Medrol) 80 mg IV Q8 [facility] Last Admin: 02/21/17 11:22 Dose: 80 mg Multivitamins/Minerals (Therapeutic-M Tab) 1 tab PO DAILY [facility] Last Admin: 02/21/17 11:22 Dose: 1 tab Promethazine HCl/Dextromethorphan (Phenergan Dm Syrup) 5 ml PO Q6 PRN PRN Reason: for cough Last Admin: 02/20/17 17:44 Dose: 5 ml Fluticasone/Salmeterol (Advair Diskus 250/50) 1 puff IH Q12 [facility] Last Admin: 02/21/17 11:21 Dose: 1 puff Valsartan (Diovan) 320 mg PO DAILY [facility] Last Admin: 02/21/17 11:22 Dose: 320 mg - Labs Labs: 02/21/17 04:30 02/21/17 04:30 PT 12.7 Seconds (9.8-13.1) 02/21/17 04:30 INR 1.1 (0.9-1.2) 02/21/17 04:30 APTT 25.6 Seconds (25.6-37.1) 02/19/17 08:25 - Constitutional Appears: Well - Head Exam Head Exam: ATRAUMATIC, NORMAL INSPECTION, NORMOCEPHALIC - Eye Exam Eye Exam: EOMI, Normal appearance, PERRL. absent: Conjunctival injection, Nystagmus, Periorbital swelling, Periorbital tenderness, Scleral icterus Pupil Exam: NORMAL ACCOMODATION, PERRL - ENT Exam ENT Exam: Mucous Membranes Moist, Normal Exam. absent: Mucous Membranes Dry, Normal External Ear Exam, Normal Oropharynx, TM's Normal Bilaterally - Neck Exam Neck Exam: Full ROM, Normal Inspection. absent: Lymphadenopathy, Meningismus, Tenderness, Thyromegaly - Respiratory Exam Respiratory Exam: Decreased Breath Sounds, NORMAL BREATHING PATTERN. absent: Accessory Muscle Use, Chest Wall Tenderness, Prolonged Expiratory Phase, Rales, Rhonchi, Wheezes, Respiratory Distress, Stridor - Cardiovascular Exam Cardiovascular Exam: Irregular Rhythm, +S1, +S2, Murmur. absent: Bradycardia, Tachycardia, Clicks, Diastolic murmur, Gallop, REGULAR RHYTHM, JVD, RRR, Rubs, + S4 - GI/Abdominal Exam GI & Abdominal Exam: Soft, Normal Bowel Sounds. absent: Bruit, Distended, Firm , Guarding, Rigid, Tenderness, Diminished Bowel Sounds, Hernia, Hyperactive Bowel Sounds, Hypoactive Bowel Sounds, Organomegaly, Pulsatile Mass, Rebound, Mass - Extremities Exam Extremities Exam: Full ROM, Normal Capillary Refill, Pedal Edema - Back Exam Back Exam: NORMAL INSPECTION. absent: CVA tenderness (L), CVA tenderness (R), Full ROM, muscle spasm, paraspinal tenderness, rash noted, tenderness, vertebral tenderness - Neurological Exam Neurological Exam: Alert, Awake, CN II-XII Intact, Normal Gait, Oriented x3. absent: Abnormal Gait, Altered, Motor Sensory Deficit, Reflexes Normal - Psychiatric Exam Psychiatric exam: Normal Affect, Normal Mood. absent: Agitated, Anxious, Depressed, Flat Affect, Homicidal Ideation, Manic, Suicidal Ideation - Skin Skin Exam: Dry, Intact, Normal Color, Warm. absent: Abrasion, Cyanosis, Diaphoretic, Erythema, Mottled, Pallor, Pallor, Petechiae, Rash, Urticaria, Vesicles Assessment and Plan (1) CAD (coronary artery disease) Status: Acute (2) Atrial fibrillation with controlled ventricular response Status: Acute (3) Chest pain Status: Acute (4) COPD exacerbation Status: Acute (5) S/P CABG x 3 Status: Acute - Assessment and Plan (Free Text) Plan: will undergo cardiac cath. surgical cabg records not available so will do aortagram. restart anticoagulation tomorrow if no intervention needed. POST CATH: LVG - EF 75, LVH CONCENTRIC LM - 90% DISTAL. LAD - OCCLUDED MID LCX - OCCLUDED MID RCA - 70% MID AND DISTAL RPDA - OCCLUDED MID RPLA - NO SIG DISEASE SVG TO RPDA - PATENT SVG TO CIRC - PATENT TAVERAS TO LAD - PATENT WITH SPASM AT PROXIMAL ASPECT, GAVIN 3 FLOW DISTALLY WITH PATENT CONFEDERATED COOS THEREAFTER AND PATENT TOUCHDOWN. restart anticoag. in am if no groin bleeding. monitor cr and hb. 75 min total are time
[2017-02-22] MEDS: Albuterol-Ipratrop 3 mg / 0.5 (3 ml) UD INH SCH ×4 (01:06→19:42)
[2017-02-22] MEDS: Fluticasone-Salmeterol 250-50mcg Diskus IH SCH ×3 (01:17→20:48)
[2017-02-22] MEDS: Promethazine DM 6.25 mg-15 mg/5 ml Syrup PO PRN (01:20)
[2017-02-22 05:27] LABS: HEMOGLOBIN 10.8 g/dL (12.0-18.0); MEAN CELL VOLUME 92.1 fl (80.0-94.0); MEAN CORPUSCULAR HEMOGLOBIN 29.8 pg (27.0-31.0); MEAN CORPUSCULAR HGB CONC 32.4 g/dL (33.0-37.0); RBC 3.64 Mil/uL (4.40-5.90); RED CELL DISTRIBUTION WIDTH 13.9 % (11.5-14.5); WHITE BLOOD COUNT 16.7 K/uL (4.8-10.8)
[2017-02-22 05:42] LABS: BLOOD UREA NITROGEN 60 mg/dl (9-20); CALCIUM 8.3 mg/dL (8.4-10.2); GFR AFRICAN-AMERICAN > 60; GFR NON-AFRICAN AMERICAN 54; MAGNESIUM 2.4 MG/DL (1.6-2.3)
[2017-02-22] MEDS ORDERED: Chlorhexidine Gluconate 1 APPL/PKT TP ONE (05:58)
--- NOTE | 2017-02-22 08:36 | PN ---
DATE: 02/21/2017 SUBJECTIVE: Patient seen and examined. Interim events noted. Consults noted and appreciated. Patient feels okay. No specific complaints. No chest pain. No shortness of breath. PHYSICAL EXAMINATION GENERAL: Patient is in no acute distress. VITAL SIGNS: Stable. HEART: S1 and S2, normal and regular. LUNGS: Good bilateral air entry. ABDOMEN: Soft and nontender. EXTREMITIES: No edema. No calf swelling. No tenderness. No acute ischemia. CENTRAL NERVOUS SYSTEM: Joel Caruso MD
--- NOTE | 2017-02-22 09:03 | CP.PCM.PN ---
Subjective - Date & Time of Evaluation Date of Evaluation: 02/22/17 Time of Evaluation: 09:03 - Subjective Subjective: SOB AND PEDAL EDEMA IMPROVING DENIES CHEST PAINS Objective - Vital Signs/Intake and Output Vital Signs (last 24 hours): Temp Pulse Resp BP Pulse Ox 97.4 F L 70 18 142/66 98 02/22/17 05:32 02/22/17 05:32 02/22/17 05:32 02/22/17 05:32 02/22/17 05:32 - Medications Medications: Current Medications Albuterol/Ipratropium (Duoneb 3 Mg/0.5 Mg (3 Ml) Ud) 3 ml INH RQ6 [facility] Last Admin: 02/22/17 07:55 Dose: 3 ml Apixaban (Eliquis) 5 mg PO BID [facility] PRN Reason: Protocol Last Admin: 02/20/17 08:45 Dose: 5 mg Aspirin (Aspirin Chewable) 81 mg PO DAILY [facility] Last Admin: 02/21/17 11:21 Dose: 81 mg Atorvastatin Calcium (Lipitor) 40 mg PO DAILY [facility] Last Admin: 02/21/17 11:23 Dose: 40 mg Carvedilol (Coreg) 25 mg PO Q12 [facility] Last Admin: 02/22/17 01:17 Dose: Not Given Furosemide (Lasix) 40 mg IVP DAILY [facility] Last Admin: 02/21/17 11:23 Dose: 40 mg Isosorbide Mononitrate (Imdur Er) 30 mg PO DAILY [facility] Last Admin: 02/21/17 11:22 Dose: 30 mg Methylprednisolone (Solu-Medrol) 80 mg IV Q12 [facility] Multivitamins/Minerals (Therapeutic-M Tab) 1 tab PO DAILY [facility] Last Admin: 02/21/17 11:22 Dose: 1 tab Promethazine HCl/Dextromethorphan (Phenergan Dm Syrup) 5 ml PO Q6 PRN PRN Reason: for cough Last Admin: 02/22/17 01:20 Dose: 5 ml Fluticasone/Salmeterol (Advair Diskus 250/50) 1 puff IH Q12 [facility] Last Admin: 02/22/17 01:17 Dose: Not Given Valsartan (Diovan) 320 mg PO DAILY [facility] Last Admin: 02/21/17 11:22 Dose: 320 mg - Labs Labs: 02/22/17 04:45 02/22/17 04:45 PT 12.7 Seconds (9.8-13.1) 02/21/17 04:30 INR 1.1 (0.9-1.2) 02/21/17 04:30 APTT 25.6 Seconds (25.6-37.1) 02/19/17 08:25 - Constitutional Appears: Chronically Ill - Head Exam Head Exam: ATRAUMATIC, NORMAL INSPECTION, NORMOCEPHALIC - Eye Exam Eye Exam: EOMI, Normal appearance, PERRL Pupil Exam: NORMAL ACCOMODATION, PERRL - ENT Exam ENT Exam: Mucous Membranes Moist, Normal Exam - Neck Exam Neck Exam: Full ROM, Normal Inspection. absent: Lymphadenopathy - Respiratory Exam Respiratory Exam: Decreased Breath Sounds, Prolonged Expiratory Phase, Rales, NORMAL BREATHING PATTERN - Cardiovascular Exam Cardiovascular Exam: Irregular Rhythm, +S1, +S2. absent: Murmur - GI/Abdominal Exam GI & Abdominal Exam: Soft, Normal Bowel Sounds. absent: Tenderness - Rectal Exam Rectal Exam: NORMAL INSPECTION - Extremities Exam Extremities Exam: Full ROM, Normal Capillary Refill, Normal Inspection, Pedal Edema. absent: Joint Swelling - Back Exam Back Exam: NORMAL INSPECTION - Neurological Exam Neurological Exam: Alert, Awake, CN II-XII Intact, Normal Gait, Oriented x3 - Psychiatric Exam Psychiatric exam: Normal Affect, Normal Mood - Skin Skin Exam: Dry, Intact, Normal Color, Warm Assessment and Plan - Assessment and Plan (Free Text) Assessment: CHF CAD COPD EXAC POOR COMPLIANCE Plan: CONTINUE PRESENT RX TAPER STEROIDS MAY BENEFIT FROM TCU/SUBACUTE CARE PRIOR TO D/C HOME
--- NOTE | 2017-02-22 09:10 | CP.PCM.PN ---
<Meenakshi Santacruzzabeth - Last Filed: 02/22/17 11:59> Subjective - Date & Time of Evaluation Date of Evaluation: 02/22/17 Time of Evaluation: 07:20 - Subjective Subjective: Patient seen and examined with attending Dr. Caruso in Telemetry unit this morning. Patient states that he is less SOB, and denies chest pain, N/V. S/p Cardiac cath by Dr. Roberts. Awaiting for Cardiac Cath report. Has been afebrile, rest of VS stable on current medical treatment No events overnight Objective - Vital Signs/Intake and Output Vital Signs (last 24 hours): Temp Pulse Resp BP Pulse Ox 97.4 F L 70 18 142/66 98 02/22/17 05:32 02/22/17 05:32 02/22/17 05:32 02/22/17 05:32 02/22/17 05:32 - Medications Medications: Current Medications Albuterol/Ipratropium (Duoneb 3 Mg/0.5 Mg (3 Ml) Ud) 3 ml INH RQ6 [facility] Last Admin: 02/22/17 07:55 Dose: 3 ml Apixaban (Eliquis) 5 mg PO BID [facility] PRN Reason: Protocol Last Admin: 02/20/17 08:45 Dose: 5 mg Aspirin (Aspirin Chewable) 81 mg PO DAILY [facility] Last Admin: 02/21/17 11:21 Dose: 81 mg Atorvastatin Calcium (Lipitor) 40 mg PO DAILY [facility] Last Admin: 02/21/17 11:23 Dose: 40 mg Carvedilol (Coreg) 25 mg PO Q12 [facility] Last Admin: 02/22/17 01:17 Dose: Not Given Furosemide (Lasix) 40 mg IVP DAILY [facility] Last Admin: 02/21/17 11:23 Dose: 40 mg Isosorbide Mononitrate (Imdur Er) 30 mg PO DAILY [facility] Last Admin: 02/21/17 11:22 Dose: 30 mg Methylprednisolone (Solu-Medrol) 80 mg IV Q12 [facility] Multivitamins/Minerals (Therapeutic-M Tab) 1 tab PO DAILY [facility] Last Admin: 02/21/17 11:22 Dose: 1 tab Promethazine HCl/Dextromethorphan (Phenergan Dm Syrup) 5 ml PO Q6 PRN PRN Reason: for cough Last Admin: 02/22/17 01:20 Dose: 5 ml Fluticasone/Salmeterol (Advair Diskus 250/50) 1 puff IH Q12 [facility] Last Admin: 02/22/17 01:17 Dose: Not Given Valsartan (Diovan) 320 mg PO DAILY [facility] Last Admin: 02/21/17 11:22 Dose: 320 mg - Labs Labs: 02/22/17 04:45 02/22/17 04:45 PT 12.7 Seconds (9.8-13.1) 02/21/17 04:30 INR 1.1 (0.9-1.2) 02/21/17 04:30 APTT 25.6 Seconds (25.6-37.1) 02/19/17 08:25 - Constitutional Appears: Non-toxic, No Acute Distress - ENT Exam ENT Exam: Mucous Membranes Moist - Respiratory Exam Respiratory Exam: Decreased Breath Sounds (left lung field), Clear to Ausculation Bilateral, NORMAL BREATHING PATTERN. absent: Rales, Rhonchi, Wheezes, Respiratory Distress - Cardiovascular Exam Cardiovascular Exam: REGULAR RHYTHM, +S1, +S2 - GI/Abdominal Exam GI & Abdominal Exam: Soft, Normal Bowel Sounds. absent: Distended, Guarding, Rigid, Tenderness - Extremities Exam Extremities Exam: Normal Inspection. absent: Calf Tenderness, Pedal Edema - Neurological Exam Neurological Exam: Alert, Awake, Oriented x3 - Skin Skin Exam: Dry, Intact, Normal Color Assessment and Plan (1) COPD exacerbation Assessment & Plan: improving on scheduled [id number] and Methyprednisolone IV as per Pulmonology Dr. Blanca consulted. Recommendations are appreciated Status: Acute (2) Systolic CHF Assessment & Plan: most likely in exacerbation on admission, now clinically improving -ProBNP trending down c/w current management f/u Cardio recommendations Echo on 02/10/17 showed EF 40-45 %, systolic function moderately impaired Status: Chronic (3) CAD (coronary artery disease) Assessment & Plan: Stable Chest pain free at this time s/p Cardiac Cath at [facility] by Dr. Roberts F/u Cardiac cath results -c/w current medical management F/u Dr. Roberts recommendations. Appreciated. Status: Acute (5) DVT prophylaxis Assessment & Plan: on Eliquis Status: Acute <Caruso,Joel K - Last Filed: 02/24/17 11:19> Objective - Vital Signs/Intake and Output Vital Signs (last 24 hours): Temp Pulse Resp BP Pulse Ox 97.5 F L 64 20 128/68 95 02/23/17 17:00 02/23/17 17:00 02/23/17 17:00 02/23/17 17:00 02/23/17 17:00 - Labs Labs: 02/23/17 05:00 02/23/17 05:00 PT 12.7 Seconds (9.8-13.1) 02/21/17 04:30 INR 1.1 (0.9-1.2) 02/21/17 04:30 APTT 25.6 Seconds (25.6-37.1) 02/19/17 08:25 Assessment and Plan - Assessment and Plan (Free Text) Assessment: Patient was personally seen and examined by me in rounds with residents. Available labs and diagnostic data reviewed. Case, Patient's condition and management plan discussed with residents in rounds. Agree with resident's progress note. Plan: As ordered.
[2017-02-22] MEDS: Multivitamin With Minerals Tab PO SCH (15:12)
[2017-02-22] MEDS ORDERED: Albuterol-Ipratrop 3 mg / 0.5 (3 ml) UD INH PRN (16:06)
[2017-02-23] MEDS: Albuterol-Ipratrop 3 mg / 0.5 (3 ml) UD INH SCH ×3 (00:59→13:54)
[2017-02-23 05:29] LABS: HEMOGLOBIN 10.1 g/dL (12.0-18.0); MEAN CORPUSCULAR HEMOGLOBIN 30.2 pg (27.0-31.0); MEAN CORPUSCULAR HGB CONC 32.8 g/dL (33.0-37.0); RBC 3.35 Mil/uL (4.40-5.90); RED CELL DISTRIBUTION WIDTH 13.7 % (11.5-14.5); WHITE BLOOD COUNT 11.9 K/uL (4.8-10.8)
[2017-02-23 06:35] LABS: ALB/GLOB RATIO 1.2 (1.0-2.1); CALCIUM 7.7 mg/dL (8.4-10.2)
[2017-02-23 08:05] VITALS: RESP 20
[2017-02-23] MEDS: Fluticasone-Salmeterol 250-50mcg Diskus IH SCH (09:11)
[2017-02-23] MEDS: Multivitamin With Minerals Tab PO SCH (09:12)
--- NOTE | 2017-02-23 10:43 | CP.PCM.PN ---
Subjective - Date & Time of Evaluation Date of Evaluation: 02/23/17 Time of Evaluation: 10:43 - Subjective Subjective: EXERTIONAL DYSPNEA PERSISTS NO CHEST PAINS COUGH LESS Objective - Vital Signs/Intake and Output Vital Signs (last 24 hours): Temp Pulse Resp BP Pulse Ox 97.7 F 70 20 130/75 98 02/23/17 08:04 02/23/17 09:11 02/23/17 08:04 02/23/17 09:12 02/23/17 08:04 Intake and Output: 02/23/17 02/23/17 06:59 18:59 Output Total 200 Balance -200 - Medications Medications: Current Medications Acetaminophen (Tylenol 325mg Tab) 650 mg PO Q6 PRN PRN Reason: Pain, Mild (1-3) Last Admin: 02/22/17 15:09 Dose: 650 mg Albuterol/Ipratropium (Duoneb 3 Mg/0.5 Mg (3 Ml) Ud) 3 ml INH RQ6 [facility] Last Admin: 02/23/17 07:46 Dose: 3 ml Albuterol/Ipratropium (Duoneb 3 Mg/0.5 Mg (3 Ml) Ud) 3 ml INH RQ6 PRN PRN Reason: Shortness of Breath Apixaban (Eliquis) 5 mg PO BID [facility] PRN Reason: Protocol Last Admin: 02/23/17 09:12 Dose: 5 mg Aspirin (Aspirin Chewable) 81 mg PO DAILY [facility] Last Admin: 02/22/17 15:11 Dose: 81 mg Atorvastatin Calcium (Lipitor) 40 mg PO DAILY@2100 [facility] Last Admin: 02/22/17 20:49 Dose: 40 mg Carvedilol (Coreg) 25 mg PO Q12 [facility] Last Admin: 02/23/17 09:11 Dose: 25 mg Furosemide (Lasix) 40 mg IVP DAILY [facility] Last Admin: 02/23/17 09:12 Dose: 40 mg Isosorbide Mononitrate (Imdur Er) 30 mg PO DAILY [facility] Last Admin: 02/23/17 09:12 Dose: 30 mg Methylprednisolone (Solu-Medrol) 80 mg IV Q12 [facility] Last Admin: 02/23/17 09:12 Dose: 80 mg Multivitamins/Minerals (Therapeutic-M Tab) 1 tab PO DAILY [facility] Last Admin: 02/23/17 09:12 Dose: 1 tab Promethazine HCl/Dextromethorphan (Phenergan Dm Syrup) 5 ml PO Q6 PRN PRN Reason: for cough Last Admin: 02/22/17 01:20 Dose: 5 ml Fluticasone/Salmeterol (Advair Diskus 250/50) 1 puff IH Q12 [facility] Last Admin: 02/23/17 09:11 Dose: 1 puff Valsartan (Diovan) 320 mg PO DAILY [facility] Last Admin: 02/23/17 09:11 Dose: 320 mg - Labs Labs: 02/23/17 05:00 02/23/17 05:00 PT 12.7 Seconds (9.8-13.1) 02/21/17 04:30 INR 1.1 (0.9-1.2) 02/21/17 04:30 APTT 25.6 Seconds (25.6-37.1) 02/19/17 08:25 - Constitutional Appears: No Acute Distress - Head Exam Head Exam: ATRAUMATIC, NORMAL INSPECTION, NORMOCEPHALIC - Eye Exam Eye Exam: EOMI, Normal appearance, PERRL Pupil Exam: NORMAL ACCOMODATION, PERRL - ENT Exam ENT Exam: Mucous Membranes Moist, Normal Exam - Neck Exam Neck Exam: Full ROM, Normal Inspection. absent: Lymphadenopathy - Respiratory Exam Respiratory Exam: Decreased Breath Sounds, Prolonged Expiratory Phase, Rales, NORMAL BREATHING PATTERN - Cardiovascular Exam Cardiovascular Exam: REGULAR RHYTHM, +S1, +S2. absent: Murmur - GI/Abdominal Exam GI & Abdominal Exam: Soft, Normal Bowel Sounds. absent: Tenderness - Rectal Exam Rectal Exam: NORMAL INSPECTION - Extremities Exam Extremities Exam: Full ROM, Normal Capillary Refill, Normal Inspection, Pedal Edema. absent: Joint Swelling Additional comments: PEDAL EDEMA LESS - Back Exam Back Exam: NORMAL INSPECTION - Neurological Exam Neurological Exam: Alert, Awake, CN II-XII Intact, Normal Gait, Oriented x3 - Psychiatric Exam Psychiatric exam: Normal Affect, Normal Mood - Skin Skin Exam: Dry, Intact, Normal Color, Warm Assessment and Plan - Assessment and Plan (Free Text) Assessment: CHF--CLINICALLY IMPROVING COPD-IMPROVING NON-COMPLIANCE TO RX ASHD Plan: SUGGEST SUBACUTE CARE PRIOR TO D/C HOME PT HAS POOR INSIGHT RE-THERAPY AND ILLNESS
[2017-02-23] MEDS: Promethazine DM 6.25 mg-15 mg/5 ml Syrup PO PRN (14:55)
[2017-02-23 15:59] VITALS: BP 128/68; PULSE 64; TEMP 97.5; O2SAT 95
--- NOTE | 2017-02-23 19:00 | CP.PCM.DIS ---
<Vera Santacruz - Last Filed: 02/23/17 18:53> Provider - Provider Date of Admission: 02/19/17 12:06 Attending physician: Joel Caruso MD Time Spent in preparation of Discharge (in minutes): 30 Diagnosis - Discharge Diagnosis (1) COPD exacerbation Status: Acute Priority: High Comment: improving. Taper PO steroid as per Pulmonology recommendations. f/u with PCP in 1 week (2) Systolic CHF Status: Chronic Comment: improving, c/w current treatment, f/u with PCP as outpatient (3) CAD (coronary artery disease) Status: Chronic Comment: s/p Cardiac cath at [facility] by Dr. Roberts. c/w current medical management and f/u as outpatient (4) Atrial fibrillation with controlled ventricular response Status: Chronic Hospital Course - Lab Results Lab Results: Most Recent Lab Values WBC 11.9 K/uL (4.8-10.8) H 02/23/17 05:00 RBC 3.35 Mil/uL (4.40-5.90) L 02/23/17 05:00 Hgb 10.1 g/dL (12.0-18.0) L 02/23/17 05:00 Hct 30.8 % (35.0-51.0) L 02/23/17 05:00 MCV 92.0 fl (80.0-94.0) 02/23/17 05:00 MCH 30.2 pg (27.0-31.0) 02/23/17 05:00 MCHC 32.8 g/dL (33.0-37.0) L 02/23/17 05:00 RDW 13.7 % (11.5-14.5) 02/23/17 05:00 Plt Count 181 K/uL (130-400) 02/23/17 05:00 MPV 8.7 fl (7.2-11.7) 02/21/17 04:30 Neut % (Auto) 90.3 % (50.0-75.0) H 02/21/17 04:30 Lymph % (Auto) 4.8 % (20.0-40.0) L 02/21/17 04:30 Cole % (Auto) 4.8 % (0.0-10.0) 02/21/17 04:30 Eos % (Auto) 0.0 % (0.0-4.0) 02/21/17 04:30 Baso % (Auto) 0.1 % (0.0-2.0) 02/21/17 04:30 Neut # 10.1 K/uL (1.8-7.0) H 02/21/17 04:30 Lymph # 0.5 K/uL (1.0-4.3) L 02/21/17 04:30 Cole # 0.5 K/uL (0.0-0.8) 02/21/17 04:30 Eos # 0.0 K/uL (0.0-0.7) 02/21/17 04:30 Baso # 0.0 K/uL (0.0-0.2) 02/21/17 04:30 Neutrophils % (Manual) 89 % (42-75) H 02/21/17 04:30 Band Neutrophils % 2 % (0-2) 02/19/17 08:25 Lymphocytes % (Manual) 5 % (20-50) L 02/21/17 04:30 Monocytes % (Manual) 4 % (0-10) 02/21/17 04:30 Metamyelocytes % 1 % (0-0) H 02/21/17 04:30 Myelocytes % 1 % (0-0) H 02/21/17 04:30 Toxic Granulation Present 02/21/17 04:30 Platelet Estimate Normal (NORMAL) 02/21/17 04:30 Hypochromasia (manual) Slight 02/21/17 04:30 Anisocytosis (manual) Slight 02/19/17 08:25 Tear Drop Cells Slight 02/21/17 04:30 Ovalocytes Slight 02/21/17 04:30 Louis Cells Slight 02/19/17 08:25 PT 12.7 Seconds (9.8-13.1) 02/21/17 04:30 INR 1.1 (0.9-1.2) 02/21/17 04:30 APTT 25.6 Seconds (25.6-37.1) 02/19/17 08:25 Sodium 131 mmol/l (132-148) L 02/23/17 05:00 Potassium 5.1 MMOL/L (3.6-5.0) H 02/23/17 05:00 Chloride 92 mmol/L (98-107) L 02/23/17 05:00 Carbon Dioxide 33 mmol/L (22-30) H 02/23/17 05:00 Anion Gap 11 (10-20) 02/23/17 05:00 BUN 73 mg/dl (9-20) H 02/23/17 05:00 Creatinine 1.5 mg/dl (0.8-1.5) 02/23/17 05:00 Est GFR ( Amer) 55 02/23/17 05:00 Est GFR (Non-Af Amer) 46 02/23/17 05:00 Random Glucose 237 mg/dL (75-110) H 02/23/17 05:00 Hemoglobin A1c 7.9 % (4.2-6.5) H D 02/21/17 04:30 Calcium 7.7 mg/dL (8.4-10.2) L 02/23/17 05:00 Magnesium 2.4 MG/DL (1.6-2.3) H 02/22/17 04:45 Total Bilirubin 0.9 mg/dl (0.2-1.3) 02/23/17 05:00 AST 17 U/L (17-59) 02/23/17 05:00 ALT 45 U/L (21-72) 02/23/17 05:00 Alkaline Phosphatase 68 U/L (38-126) 02/23/17 05:00 Troponin I 0.0160 ng/mL (0.00-0.120) 02/21/17 04:45 NT-Pro-B Natriuret Pep 3260 pg/ml (0-900) H 02/21/17 04:45 Total Protein 5.6 G/DL (6.3-8.2) L 02/23/17 05:00 Albumin 3.0 g/dL (3.5-5.0) L 02/23/17 05:00 Globulin 2.5 gm/dL (2.2-3.9) 02/23/17 05:00 Albumin/Globulin Ratio 1.2 (1.0-2.1) 02/23/17 05:00 Triglycerides 209 mg/DL (0-149) H D 02/21/17 04:30 Cholesterol 137 mg/dL (0-199) 02/21/17 04:30 LDL Cholesterol Direct 83 mg/dL (0-129) 02/21/17 04:30 HDL Cholesterol 38 MG/DL (30-70) 02/21/17 04:30 Free T4 0.78 ng/dL (0.78-2.19) 02/22/17 09:00 Free T3 pg/mL 2.69 pg/mL (2.77-5.27) L 02/22/17 09:00 TSH 3rd Generation 0.11 mIU/ML (0.46-4.68) L 02/21/17 04:30 - Hospital Course Hospital Course: 76 y/o male with a surgical history of a Coronary Artery Bypass Graft and a past medical history of Atrial Fibrillation and Congestive Heart Failure admitted with COPD and CHF exacerbation. During admission Cardiology and Pulmonology were consulted. Patient was managed with bronchodilators, steroids, empiric antibiotics, fluid and salt restriction, and oxygen supplementation. Patient improved in prior mention treatment. Also patient underwent cardiac cath at [facility] by Dr. Roberts. Patient seen and examined with attending, Dr. Caruso in telemetry unit this morning. Patient less SOB, chest pain free, and seen in his baseline health status. We gave strong recommendations for fdc care center for continues management and better control of his chronic medical conditions, but family refuses fdc care at this time. Patient cleared by Cardiology, Pulmonology, and Dr. Caruso for discharge today. Patient will f/u with PMD in 1 week, and has an appointment on tuemar 02 at 11 am. - Date & Time of H&P Date of H&P: 02/23/17 Time of H&P: 10:55 Discharge Exam - Head Exam Head Exam: ATRAUMATIC, NORMAL INSPECTION, NORMOCEPHALIC - ENT Exam ENT Exam: Mucous Membranes Moist - Respiratory Exam Respiratory Exam: Decreased Breath Sounds, Clear to PA & Lateral, NORMAL BREATHING PATTERN - Cardiovascular Exam Cardiovascular Exam: Irregular Rhythm, RRR, +S1, +S2 - GI/Abdominal Exam GI & Abdominal Exam: Normal Bowel Sounds, Soft. absent: Distended, Guarding, Tenderness - Extremities Exam Extremities exam: pedal edema (stable and bilateral) - Neurological Exam Neurological exam: Alert, Oriented x3 - Skin Skin Exam: Dry, Normal Color, Warm Discharge Plan - Follow Up Plan Condition: STABLE Disposition: DISCHARGED TO HOME CARE Patient education suggested?: Yes Instructions: Heart Failure (DC) Additional Instructions: F/u with PCP, Dr. Kincaid in 1 week- tuesdaymar 02 at 11am ER precautions given. Consultants and primary medical team strongly recommended transfer to longterm care, but family refuses terminal supervisor care at this time. Referrals: Gerardo Kincaid MD [Staff Provider] - <Joel Caruso - Last Filed: 02/24/17 11:20> Provider - Provider Date of Admission: 02/19/17 12:06 Attending physician: Joel Caruso MD Hospital Course - Lab Results Lab Results: Most Recent Lab Values WBC 11.9 K/uL (4.8-10.8) H 02/23/17 05:00 RBC 3.35 Mil/uL (4.40-5.90) L 02/23/17 05:00 Hgb 10.1 g/dL (12.0-18.0) L 02/23/17 05:00 Hct 30.8 % (35.0-51.0) L 02/23/17 05:00 MCV 92.0 fl (80.0-94.0) 02/23/17 05:00 MCH 30.2 pg (27.0-31.0) 02/23/17 05:00 MCHC 32.8 g/dL (33.0-37.0) L 02/23/17 05:00 RDW 13.7 % (11.5-14.5) 02/23/17 05:00 Plt Count 181 K/uL (130-400) 02/23/17 05:00 MPV 8.7 fl (7.2-11.7) 02/21/17 04:30 Neut % (Auto) 90.3 % (50.0-75.0) H 02/21/17 04:30 Lymph % (Auto) 4.8 % (20.0-40.0) L 02/21/17 04:30 Cole % (Auto) 4.8 % (0.0-10.0) 02/21/17 04:30 Eos % (Auto) 0.0 % (0.0-4.0) 02/21/17 04:30 Baso % (Auto) 0.1 % (0.0-2.0) 02/21/17 04:30 Neut # 10.1 K/uL (1.8-7.0) H 02/21/17 04:30 Lymph # 0.5 K/uL (1.0-4.3) L 02/21/17 04:30 Cole # 0.5 K/uL (0.0-0.8) 02/21/17 04:30 Eos # 0.0 K/uL (0.0-0.7) 02/21/17 04:30 Baso # 0.0 K/uL (0.0-0.2) 02/21/17 04:30 Neutrophils % (Manual) 89 % (42-75) H 02/21/17 04:30 Band Neutrophils % 2 % (0-2) 02/19/17 08:25 Lymphocytes % (Manual) 5 % (20-50) L 02/21/17 04:30 Monocytes % (Manual) 4 % (0-10) 02/21/17 04:30 Metamyelocytes % 1 % (0-0) H 02/21/17 04:30 Myelocytes % 1 % (0-0) H 02/21/17 04:30 Toxic Granulation Present 02/21/17 04:30 Platelet Estimate Normal (NORMAL) 02/21/17 04:30 Hypochromasia (manual) Slight 02/21/17 04:30 Anisocytosis (manual) Slight 02/19/17 08:25 Tear Drop Cells Slight 02/21/17 04:30 Ovalocytes Slight 02/21/17 04:30 [place] Cells Slight 02/19/17 08:25 PT 12.7 Seconds (9.8-13.1) 02/21/17 04:30 INR 1.1 (0.9-1.2) 02/21/17 04:30 APTT 25.6 Seconds (25.6-37.1) 02/19/17 08:25 Sodium 131 mmol/l (132-148) L 02/23/17 05:00 Potassium 5.1 MMOL/L (3.6-5.0) H 02/23/17 05:00 Chloride 92 mmol/L (98-107) L 02/23/17 05:00 Carbon Dioxide 33 mmol/L (22-30) H 02/23/17 05:00 Anion Gap 11 (10-20) 02/23/17 05:00 BUN 73 mg/dl (9-20) H 02/23/17 05:00 Creatinine 1.5 mg/dl (0.8-1.5) 02/23/17 05:00 Est GFR ( Amer) 55 02/23/17 05:00 Est GFR (Non-Af Amer) 46 02/23/17 05:00 Random Glucose 237 mg/dL (75-110) H 02/23/17 05:00 Hemoglobin A1c 7.9 % (4.2-6.5) H D 02/21/17 04:30 Calcium 7.7 mg/dL (8.4-10.2) L 02/23/17 05:00 Magnesium 2.4 MG/DL (1.6-2.3) H 02/22/17 04:45 Total Bilirubin 0.9 mg/dl (0.2-1.3) 02/23/17 05:00 AST 17 U/L (17-59) 02/23/17 05:00 ALT 45 U/L (21-72) 02/23/17 05:00 Alkaline Phosphatase 68 U/L (38-126) 02/23/17 05:00 Troponin I 0.0160 ng/mL (0.00-0.120) 02/21/17 04:45 NT-Pro-B Natriuret Pep 3260 pg/ml (0-900) H 02/21/17 04:45 Total Protein 5.6 G/DL (6.3-8.2) L 02/23/17 05:00 Albumin 3.0 g/dL (3.5-5.0) L 02/23/17 05:00 Globulin 2.5 gm/dL (2.2-3.9) 02/23/17 05:00 Albumin/Globulin Ratio 1.2 (1.0-2.1) 02/23/17 05:00 Triglycerides 209 mg/DL (0-149) H D 02/21/17 04:30 Cholesterol 137 mg/dL (0-199) 02/21/17 04:30 LDL Cholesterol Direct 83 mg/dL (0-129) 02/21/17 04:30 HDL Cholesterol 38 MG/DL (30-70) 02/21/17 04:30 Free T4 0.78 ng/dL (0.78-2.19) 02/22/17 09:00 Free T3 pg/mL 2.69 pg/mL (2.77-5.27) L 02/22/17 09:00 TSH 3rd Generation 0.11 mIU/ML (0.46-4.68) L 02/21/17 04:30
--- NOTE | 2017-04-19 14:24 | CP.PCM.HP ---
History of Present Illness - History of Present Illness History of Present Illness: H&P 02/19/[address] Caruso. This is a history and physical for a 76 y/o male with a surgical history significant for CABG, and a past medical history of Atrial Fibrillation and Congestive Heart Failure, who presents to the ED complaining of shortness of breath, onset just prior to arrival. Patient had been discharged less than 24 hrs ago, and could not go up his stairs due to shortness of breath and ems was called. According to the EMS, one duoneb was administered before arriving to the ED in an attempt to temporarily alleviate some of the patient's symptoms. Patient was seen in the ER with reports of bilateral chest pain, but denies cough, orthopnea, or any new leg swelling. Patient seen on 4N today, chest pain has resolved but in mild respiratory distress, undergoing pulmonary workup. Present on Admission - Present on Admission Any Indicators Present on Admission: No History of DVT/PE: No History of Uncontrolled Diabetes: No Urinary Catheter: No Decubitus Ulcer Present: No History Surgical Site Infection Following: CABG - Mediastinitis Review of Systems - Constitutional Constitutional: As Per HPI, Weakness - EENT Eyes: As Per HPI Ears: As Per HPI Nose/Mouth/Throat: As Per HPI - Cardiovascular Cardiovascular: Dyspnea, Dyspnea on Exertion - Respiratory Respiratory: Dyspnea, Chest Congestion - Gastrointestinal Gastrointestinal: As Per HPI - Genitourinary Genitourinary: As Per HPI - Reproductive: Male Reproductive:Male: As Per HPI - Musculoskeletal Musculoskeletal: As Per HPI - Integumentary Integumentary: As Per HPI - Neurological Neurological: As Per HPI Past Patient History - Tetanus Immunizations Tetanus Immunization: Unknown - Past Medical History & Family History Past Medical History?: Yes - Past Social History Smoking Status: Former Smoker Alcohol: None Drugs: Denies Home Situation {Lives}: With Family - CARDIAC Hx Cardiac Disorders: Yes (CABG X 3) Hx Atrial Fibrillation: Yes Hx Congestive Heart Failure: Yes Hx Hypercholesterolemia: Yes Hx Hypertension: Yes - PULMONARY Hx Bronchitis: Yes Hx Chronic Obstructive Pulmonary Disease (COPD): Yes Hx Pneumonia: Yes - NEUROLOGICAL Hx Dementia: Yes - HEENT Hx HEENT Problems: Yes (Wear eyeglasses.) - RENAL Hx Chronic Kidney Disease: Yes (renal failure) - ENDOCRINE/METABOLIC Hx Endocrine Disorders: No - HEMATOLOGICAL/ONCOLOGICAL Hx Human Immunodeficiency Virus (HIV): No - INTEGUMENTARY Hx Dermatological Problems: No - MUSCULOSKELETAL/RHEUMATOLOGICAL Hx Arthritis: Yes - GASTROINTESTINAL Hx Gastritis: Yes - GENITOURINARY/GYNECOLOGICAL Hx Genitourinary Disorders: No - PSYCHIATRIC Hx Psychophysiologic Disorder: No Hx Substance Use: No - SURGICAL HISTORY Hx Coronary Artery Bypass Graft: Yes (in 2005) - ANESTHESIA Hx Anesthesia: Yes Hx Anesthesia Reactions: No Hx Malignant Hyperthermia: No Meds Allergies/Adverse Reactions: Allergies Allergy/AdvReac Type Severity Reaction Status Date / Time No Known Allergies Allergy Verified 03/03/17 14:32 Physical Exam - Constitutional Appears: Well - Head Exam Head Exam: ATRAUMATIC, NORMAL INSPECTION, NORMOCEPHALIC - Eye Exam Eye Exam: EOMI Pupil Exam: NORMAL ACCOMODATION, PERRL - ENT Exam ENT Exam: Mucous Membranes Moist - Neck Exam Neck exam: Positive for: Normal Inspection - Respiratory Exam Respiratory Exam: Rales, Wheezes, Respiratory Distress - Cardiovascular Exam Cardiovascular Exam: REGULAR RHYTHM - GI/Abdominal Exam GI & Abdominal Exam: Normal Bowel Sounds - Rectal Exam Rectal Exam: NORMAL INSPECTION - Exam Exam: NORMAL INSPECTION - Extremities Exam Extremities exam: Positive for: full ROM, pedal edema, pedal pulses present - Back Exam Back exam: NORMAL INSPECTION - Neurological Exam Neurological exam: Alert, Normal Gait, Oriented x3 - Psychiatric Exam Psychiatric exam: Anxious - Skin Skin Exam: Normal Color Results - Vital Signs Recent Vital Signs: Last Vital Signs Temp 97.5 F L 02/23/17 17:00 Pulse 64 02/23/17 17:00 Resp 20 02/23/17 17:00 BP 128/68 02/23/17 17:00 Pulse Ox 95 02/23/17 17:00 - Labs Result Diagrams: 02/23/17 05:00 02/23/17 05:00 Assessment & Plan (1) CHF (congestive heart failure) Status: Acute (2) Atrial fibrillation with controlled ventricular response Status: Chronic (3) Moderate COPD (chronic obstructive pulmonary disease) Status: Acute (4) CAD (coronary artery disease) Status: Chronic - Assessment and Plan (Free Text) Assessment: CHEST PAIN: TROPONINS, CARDIAC CONSULT CHF: DIURESIS O2 SUPPLEMENTATION CARDIAC CONSULTATION FLUID RESTRICTION LOW NA DIET COPD DR ROCHA RECONSULTED OXYGEN VIA [place] DUONEBS, FOLLOW CHEST XRAY WILL GIVE EMPERIC ANTIBIOTIC RX PT/OT FOR DEBILITATION SW TO FOLLOW FOR DC PLANS.
== END 2017-02-23 18:40 | disposition home health service (06) | DRG 190 ==
LOC: H.ER 07:57 → H.ERHOLD 12:06 → H.TEL 14:53
PROVIDERS: ADMIT Internal Medicine; ATTEND Internal Medicine
PROC: 3E0F73Z Introduction of Anti-inflammatory into Respiratory Tract, Via Natural or Artificial Opening (ICD-10-PCS; principal; 2017-02-19)
PROC: 4A023N7 Measurement of Cardiac Sampling and Pressure, Left Heart, Percutaneous Approach (ICD-10-PCS; 2017-02-21)
PROC: B206YZZ Plain Radiography of Right and Left Heart using Other Contrast (ICD-10-PCS; 2017-02-21)
DX: J44.1 Chronic obstructive pulmonary disease with (acute) exacerbation (principal); I50.23 Acute on chronic systolic (congestive) heart failure; E11.22 Type 2 diabetes mellitus with diabetic chronic kidney disease; I13.0 Hypertensive heart and chronic kidney disease with heart failure and stage 1 through stage 4 chronic kidney disease, or unspecified chronic kidney disease; J45.901 Unspecified asthma with (acute) exacerbation; I48.2 Chronic atrial fibrillation; K29.70 Gastritis, unspecified, without bleeding; N18.9 Chronic kidney disease, unspecified; E78.00 Pure hypercholesterolemia, unspecified; I25.10 Atherosclerotic heart disease of native coronary artery without angina pectoris; F03.90 Unspecified dementia, unspecified severity, without behavioral disturbance, psychotic disturbance, mood disturbance, and anxiety; M19.90 Unspecified osteoarthritis, unspecified site; F41.9 Anxiety disorder, unspecified; Z86.73 Personal history of transient ischemic attack (TIA), and cerebral infarction without residual deficits; Z87.01 Personal history of pneumonia (recurrent); Z87.891 Personal history of nicotine dependence; Z91.19 Patient's noncompliance with other medical treatment and regimen; Z95.1 Presence of aortocoronary bypass graft; Z79.01 Long term (current) use of anticoagulants

== ENCOUNTER 2017-02-23 20:03 | Inpatient (IN) | payer MEDICARE, BC ==
[2017-02-23 20:03] VITALS: BMI 29.5
[2017-02-23 21:23] LABS: EOS % 0.1 % (0.0-4.0); HEMATOCRIT 30.6 % (35.0-51.0); LYMPH # 0.4 K/uL (1.0-4.3); LYMPH % 2.4 % (20.0-40.0); MEAN CELL VOLUME 91.5 fl (80.0-94.0); MEAN CORPUSCULAR HEMOGLOBIN 30.1 pg (27.0-31.0); MEAN CORPUSCULAR HGB CONC 32.9 g/dL (33.0-37.0); MEAN PLATELET VOLUME 8.6 fl (7.2-11.7); MONO # 0.9 K/uL (0.0-0.8); MONO % 6.1 % (0.0-10.0); NEUT # 13.7 K/uL (1.8-7.0); NEUT % 91.4 % (50.0-75.0); PLATELET COUNT 167 K/uL (130-400); RED CELL DISTRIBUTION WIDTH 13.9 % (11.5-14.5)
--- NOTE | 2017-02-23 21:31 | ED PDOC ---
HPI: SOB/CHF/COPD Time Seen by Provider: 02/23/17 20:12 Chief Complaint (Nursing): Shortness Of Breath Chief Complaint (Provider): Shortness of breath History Per: Patient, Family History/Exam Limitations: no limitations Onset/Duration Of Symptoms: Hrs Current Symptoms Are (Timing): Still Present Additional Complaint(s): 76yo male, past medical history of hypertension, hypercholesterolemia, a-fib, anemia, arthritis, CAD, COPD, CVA, dementia, chronic kidney disease, is brought to the ED for evaluation of shortness of breath. The patient was discharged from this facility after he was admitted for CHF exacerbation. Patient's family report they took the patient home and he couldn't get past the stairwell; patient states he rested for a few minutes and was still unable to get up the stairs. The family then called EMS and the patient was brought to this facility for evaluation. Patient states during his admission, he had a cardiac cath and was treated for asthma and CHF exacerbation. 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 At present, patient states he feels much better compared to when he was home. He denies any chest pain. Patient has no other complaints. Past Medical History Reviewed: Historical Data, Nursing Documentation, Vital Signs Vital Signs: Last Vital Signs Temp 97.7 F 02/26/17 20:20 Pulse 71 02/26/17 20:20 Resp 16 02/26/17 20:20 BP 125/69 02/26/17 20:20 Pulse Ox 98 02/26/17 20:20 - Medical History PMH: Anemia, Arthritis, Atrial Fibrillation, Bronchitis, CAD, CHF, COPD, CVA ( mild), Dementia, Diabetes (type II), Emphysema, Gastritis, HTN, Hypercholesterolemia, Peripheral Edema, Pneumonia, Chronic Kidney Disease ( renal failure) Denies: HIV - Surgical History Surgical History: CABG (in 2005) - Family History Family History: States: Unknown Family Hx, CAD, Diabetes (father) - Immunization History Hx Tetanus Toxoid Vaccination: No Hx Influenza Vaccination: Yes Hx Pneumococcal Vaccination: No - Home Medications Home Medications: Ambulatory Orders Medication Instructions Recorded Albuterol/Ipratropium [Duoneb 3 3 ml INH RQ6 10/22/16 mg/0.5 mg (3 ml) UD] Aspirin [Aspirin Chewable] 81 mg PO DAILY #30 chew 01/26/17 Promethazine [Phenergan Syrup] 12.5 mg PO Q6 PRN #14 dose 01/26/17 Valsartan [Diovan] 320 mg PO DAILY #30 tab 01/26/17 Budesonide/Formoterol Fumarate 1 aer IH BID #1 aer 02/15/17 [Symbicort 160-4.5 Mcg Inhaler] Apixaban [Eliquis] 5 mg PO BID #60 tablet 02/18/17 Atorvastatin [Lipitor] 40 mg PO DAILY #30 tab 02/18/17 Carvedilol [Coreg] 25 mg PO Q12H #60 tab 02/18/17 Folic Acid 1 mg PO DAILY #30 tab 02/18/17 Furosemide [Lasix] 40 mg PO DAILY #30 tab 02/18/17 Isosorbide Mononitrate ER [Imdur 30 mg PO DAILY #30 tab 02/18/17 ER] Multimineral/Multivitamin 1 tab PO DAILY #30 tab 02/18/17 [Therapeutic-M Tab] Promethazine DM [Phenergan DM 5 ml PO Q6 PRN #1 bottle 02/18/17 Syrup] predniSONE [predniSONE Tab] 30 mg PO DAILY #90 tab 02/23/17 - Allergies Allergies/Adverse Reactions: Allergies Allergy/AdvReac Type Severity Reaction Status Date / Time amlodipine [From [facility]] AdvReac NAUSEA Verified 02/23/17 20:08 Review of Systems ROS Statement: Except As Marked, All Systems Reviewed And Found Negative (as per HPI) Constitutional: Positive for: Malaise, Other (fatigue) Cardiovascular: Positive for: Light Headedness. Negative for: Chest Pain Respiratory: Positive for: Cough, Shortness of Breath. Negative for: Sputum Musculoskeletal: Positive for: Other (leg edema) Physical Exam - Reviewed Nursing Documentation Reviewed: Yes Vital Signs Reviewed: Yes - Physical Exam Appears: Positive for: Non-toxic, In Acute Distress Head Exam: Positive for: ATRAUMATIC, NORMOCEPHALIC Skin: Positive for: Warm, Diaphoresis Eye Exam: Positive for: EOMI, PERRL ENT: Positive for: Pharynx Is (clear) Neck: Positive for: Painless ROM, Supple Cardiovascular/Chest: Positive for: Chest Non Tender, Edema Respiratory: Positive for: Respiratory Distress (mild). Negative for: Accessory Muscle Use, Wheezing Gastrointestinal/Abdominal: Positive for: Soft, Other (protuberant). Negative for: Tenderness Back: Positive for: Normal Inspection. Negative for: Decreased ROM Extremity: Positive for: Pedal Edema. Negative for: Deformity Lymphatic: Negative for: Adenopathy Neurologic/Psych: Positive for: Alert. Negative for: Motor/Sensory Deficits - Laboratory Results Result Diagrams: 02/25/17 04:30 02/25/17 04:30 - ECG O2 Sat by Pulse Oximetry: 90 Medical Decision Making Medical Decision Making: Impression: Severe CHF Plan: -- Labs -- CXR Time: [address] Caruso, patient to be hospitalized with intention to set up for petroleum terminal plant operator care. Scribe Attestation: Documented by Olivia Espinoza acting as a scribe for Ame Soliz MD. Provider Attestation: All medical record entries made by the Scribe were at my direction and personally dictated by me. I have reviewed the chart and agree that the record accurately reflects my personal performance of the history, physical exam, medical decision making, and the department course for this patient. I have also personally directed, reviewed, and agree with the discharge instructions and disposition. Disposition - Clinical Impression Clinical Impression: Unsteady gait, CHF (congestive heart failure) Counseled Patient/Family Regarding: Studies Performed, Diagnosis - Disposition Disposition Time: 20:40 Condition: GUARDED - Pt Status Changed To: Hospital Disposition Of: Inpatient - Admit Certification Admit to Inpatient:: After my assessment, the patient will require hospitalization for at least two midnights. This is because of the severity of symptoms shown, intensity of services needed, and/or the medical risk in this patient being treated as an outpatient. - POA Present On Arrival: None
[2017-02-23 21:53] LABS: ALB/GLOB RATIO 1.2 (1.0-2.1); BILIRUBIN,TOTAL 0.8 mg/dl (0.2-1.3); CALCIUM 7.8 mg/dL (8.4-10.2); MAGNESIUM 2.5 MG/DL (1.6-2.3); PHOSPHOROUS 4.1 mg/dl (2.5-4.5); POTASSIUM 4.8 MMOL/L (3.6-5.0); TOTAL PROTEIN 5.8 G/DL (6.3-8.2)
[2017-02-23 22:01] LABS: TROPONIN I 0.025 ng/mL (0.00-0.120)
[2017-02-23 22:02] LABS: METAMYELOCYTE 1 % (0-0); MYELOCYTE 1 % (0-0); NEUTROPHIL 84 % (42-75); TOTAL CELLS COUNTED 100
[2017-02-24] MEDS ORDERED: Albuterol-Ipratrop 3 mg / 0.5 (3 ml) UD INH STA (05:28)
[2017-02-24] MEDS: Albuterol-Ipratrop 3 mg / 0.5 (3 ml) UD INH SCH ×3 (08:03→20:02)
--- NOTE | 2017-02-24 08:31 | RAD ---
HISTORY: sob COMPARISON: 02/19/2017. FINDINGS: LUNGS: No active pulmonary disease. PLEURA: No significant pleural effusion identified, no pneumothorax apparent. CARDIOVASCULAR: Cardiomegaly. No evidence of acute, significant cardiovascular disease. Incidental Finding(s): Postoperative changes related to sternotomy. OSSEOUS STRUCTURES: No significant abnormalities. VISUALIZED UPPER ABDOMEN: Normal. OTHER FINDINGS: None. IMPRESSION: No active disease. No significant interval change compared to the prior examination(s).
[2017-02-24] MEDS ORDERED: Sodium Chloride 3% for Inhalation 4 ML VIAL.NEB IH PRN (08:58)
[2017-02-24] MEDS: Multivitamin With Minerals Tab PO SCH (09:18)
[2017-02-24] MEDS: Promethazine DM 6.25 mg-15 mg/5 ml Syrup PO PRN (09:20)
--- NOTE | 2017-02-24 09:51 | CP.PCM.HP ---
<Vera Santacruz - Last Filed: 02/24/17 09:44> History of Present Illness - History of Present Illness History of Present Illness: 76 y/o male with past medical history of hypertension, hypercholesterolemia, a- fib, anemia, arthritis, CAD, COPD, CVA, dementia, chronic kidney disease who was discharged yesterday from this facility after he was admitted for COPD and CHF exacerbation. Patient was brought to the ED yesterday after discharge for evaluation of shortness of breath. The patient Patient's family report they took the patient home and he couldn't get past the stairwell; patient states he rested for a few minutes and was still unable to get up the stairs. Patient had a cardiac cath on prior admission by Dr. Roberts, and was treated for COPD and CHF exacerbation. Patient was given recommendation for placement in a retirement care facility but the patient and his family refused. Patient seen and examined with attending, Dr. Caruso, in telemetry unit this morning. Still c/o SOB, but denies chest pain at this eval. Present on Admission - Present on Admission Any Indicators Present on Admission: No History of DVT/PE: No History of Uncontrolled Diabetes: No Urinary Catheter: No Decubitus Ulcer Present: No Review of Systems - Review of Systems All systems: reviewed and no additional remarkable complaints except (as per HPI ) Past Patient History - Tetanus Immunizations Tetanus Immunization: Unknown - Past Medical History & Family History Past Medical History?: Yes - Past Social History Smoking Status: Former Smoker - CARDIAC Hx Cardiac Disorders: Yes Hx Atrial Fibrillation: Yes Hx Congestive Heart Failure: Yes Hx Hypercholesterolemia: Yes Hx Hypertension: Yes - PULMONARY Hx Respiratory Disorders: Yes Hx Bronchitis: Yes Hx Chronic Obstructive Pulmonary Disease (COPD): Yes Hx Emphysema: Yes Hx Pneumonia: Yes - NEUROLOGICAL Hx Neurological Disorder: Yes Hx Dementia: Yes - HEENT Hx HEENT Problems: Yes (Wear eyeglasses.) - RENAL Hx Chronic Kidney Disease: Yes (renal failure) Hx Renal Failure: Yes - ENDOCRINE/METABOLIC Hx Endocrine Disorders: No - HEMATOLOGICAL/ONCOLOGICAL Hx Blood Disorders: Yes Hx Anemia: Yes Hx Human Immunodeficiency Virus (HIV): No - INTEGUMENTARY Hx Dermatological Problems: No - MUSCULOSKELETAL/RHEUMATOLOGICAL Hx Musculoskeletal Disorders: Yes Hx Arthritis: Yes Hx Falls: No - GASTROINTESTINAL Hx Gastrointestinal Disorders: Yes Hx Gastritis: Yes - GENITOURINARY/GYNECOLOGICAL Hx Genitourinary Disorders: No - PSYCHIATRIC Hx Psychophysiologic Disorder: No Hx Substance Use: No - SURGICAL HISTORY Hx Surgeries: Yes Hx Cardiac Catheterization: Yes (02/2017) Hx Coronary Artery Bypass Graft: Yes (in 2005) - ANESTHESIA Hx Anesthesia: Yes Hx Anesthesia Reactions: No Hx Malignant Hyperthermia: No Meds Allergies/Adverse Reactions: Allergies Allergy/AdvReac Type Severity Reaction Status Date / Time amlodipine [From Norvasc] AdvReac NAUSEA Verified 02/23/17 20:08 Physical Exam - Constitutional Appears: Non-toxic, No Acute Distress - ENT Exam ENT Exam: Mucous Membranes Moist - Respiratory Exam Respiratory Exam: Decreased Breath Sounds, NORMAL BREATHING PATTERN. absent: Rhonchi, Wheezes - Cardiovascular Exam Cardiovascular Exam: REGULAR RHYTHM, RRR, +S1, +S2 - GI/Abdominal Exam GI & Abdominal Exam: Normal Bowel Sounds, Soft. absent: Distended, Guarding, Rebound, Rigid, Tenderness - Extremities Exam Extremities exam: Positive for: pedal edema. Negative for: calf tenderness - Neurological Exam Neurological exam: Alert, Oriented x3 - Skin Skin Exam: Dry, Intact, Normal Color Results - Vital Signs Recent Vital Signs: Last Vital Signs Temp 97.7 F 02/24/17 08:10 Pulse 58 L 02/24/17 08:10 Resp 20 02/24/17 08:10 BP 153/76 H 02/24/17 09:23 Pulse Ox 98 02/24/17 08:10 - Labs Result Diagrams: 02/23/17 21:10 02/23/17 21:10 Labs: Laboratory Results - last 24 hr 02/23/17 02/23/17 02/23/17 21:10 21:10 21:10 WBC 15.0 H RBC 3.35 L Hgb 10.1 L Hct 30.6 L MCV 91.5 MCH 30.1 MCHC 32.9 L RDW 13.9 Plt Count 167 MPV 8.6 Neut % (Auto) 91.4 H Lymph % (Auto) 2.4 L [place] % (Auto) 6.1 Eos % (Auto) 0.1 Baso % (Auto) 0.0 Neut # 13.7 H Lymph # 0.4 L Tucker # 0.9 H Eos # 0.0 Baso # 0.0 Neutrophils % (Manual) 84 H Band Neutrophils % 2 Lymphocytes % (Manual) 6 L Monocytes % (Manual) 6 Metamyelocytes % 1 H Myelocytes % 1 H Toxic Granulation Present Platelet Estimate Normal Hypochromasia (manual) Slight Anisocytosis (manual) Moderate Tear Drop Cells Slight PT 13.3 H INR 1.2 APTT 24.0 L Sodium 131 L Potassium 4.8 Chloride 93 L Carbon Dioxide 29 Anion Gap 14 BUN 73 H Creatinine 1.6 H Est GFR ( Amer) 51 Est GFR (Non-Af Amer) 42 Random Glucose 278 H Calcium 7.8 L Phosphorus 4.1 Magnesium 2.5 H Total Bilirubin 0.8 AST 27 ALT 55 Alkaline Phosphatase 84 Troponin I 0.0250 NT-Pro-B Natriuret Pep 4070 H Total Protein 5.8 L Albumin 3.2 L Globulin 2.6 Albumin/Globulin Ratio 1.2 Assessment & Plan (1) CHF exacerbation Assessment and Plan: Systolic CHF resume treatment re-call Cardiology Recommendations are appreciated Echo on 02/10/17 showed EF 40-45 %, systolic function moderately impaired Status: Acute (2) COPD exacerbation Assessment and Plan: resume treatment re-call Pulmonology Recommendations are appreciated Status: Acute Priority: High (3) CAD (coronary artery disease) Assessment and Plan: s/p Cardiac cath at [facility] by Dr. Roberts. Status: Chronic (4) Atrial fibrillation with controlled ventricular response Assessment and Plan: resume treatment on eliquis Status: Chronic (5) DVT prophylaxis Assessment and Plan: on Eliquis Status: Acute - Date & Time Date: 02/24/17 Time: 07:20 <Joel Caruso - Last Filed: 02/24/17 11:23> Results - Vital Signs Recent Vital Signs: Last Vital Signs Temp 97.7 F 02/24/17 08:10 Pulse 58 L 02/24/17 08:10 Resp 20 02/24/17 08:10 BP 153/76 H 02/24/17 09:23 Pulse Ox 98 02/24/17 08:10 - Labs Result Diagrams: 02/23/17 21:10 02/23/17 21:10 Labs: Laboratory Results - last 24 hr 02/23/17 02/23/17 02/23/17 21:10 21:10 21:10 WBC 15.0 H RBC 3.35 L Hgb 10.1 L Hct 30.6 L MCV 91.5 MCH 30.1 MCHC 32.9 L RDW 13.9 Plt Count 167 MPV 8.6 Neut % (Auto) 91.4 H Lymph % (Auto) 2.4 L [place] % (Auto) 6.1 Eos % (Auto) 0.1 Baso % (Auto) 0.0 Neut # 13.7 H Lymph # 0.4 L Tucker # 0.9 H Eos # 0.0 Baso # 0.0 Neutrophils % (Manual) 84 H Band Neutrophils % 2 Lymphocytes % (Manual) 6 L Monocytes % (Manual) 6 Metamyelocytes % 1 H Myelocytes % 1 H Toxic Granulation Present Platelet Estimate Normal Hypochromasia (manual) Slight Anisocytosis (manual) Moderate Tear Drop Cells Slight PT 13.3 H INR 1.2 APTT 24.0 L Sodium 131 L Potassium 4.8 Chloride 93 L Carbon Dioxide 29 Anion Gap 14 BUN 73 H Creatinine 1.6 H Est GFR ( Amer) 51 Est GFR (Non-Af Amer) 42 Random Glucose 278 H Calcium 7.8 L Phosphorus 4.1 Magnesium 2.5 H Total Bilirubin 0.8 AST 27 ALT 55 Alkaline Phosphatase 84 Troponin I 0.0250 NT-Pro-B Natriuret Pep 4070 H Total Protein 5.8 L Albumin 3.2 L Globulin 2.6 Albumin/Globulin Ratio 1.2 Assessment & Plan - Assessment and Plan (Free Text) Assessment: Patient was personally seen and examined by me in rounds with residents. Available labs and diagnostic data reviewed. Case, Patient's condition and management plan discussed with residents in rounds. Agree with resident's progress note. Plan: As ordered.
--- NOTE | 2017-02-24 12:27 | CP.PCM.CON ---
History of Present Illness - History of Present Illness History of Present Illness: I was asked to see patient by Dr Caruso. Patient is a 76 year old male with PMH HTN, CAD s/p CABG, hypercholesterolemia who presents with dyspnea. Thje patient has had multiple admissions recently due to chest pain and dyspnea, generally within the same day. He was jhust readmitted to [facility], and underwent cardiac cath, which revealed patent bypass grafts and preserved LV function. The patient was discharged on medical therapy and now readmitted. He is lying comfortably in bed. Review of Systems - Constitutional Constitutional: absent: As Per HPI, Anorexia, Chills, Daytime Sleepiness, Excessive Sweating, Fatigue, Fever, Frequent Falls, Headache, Increased Appetite , Lethargy, Malaise, Night Sweats, Snoring, Sleep Apnea, Weight Gain, Weight Loss, Weakness, Other - EENT Eyes: absent: As Per HPI, Blind Spots, Blurred Vision, Change in Vision, Decreased Night Vision, Diplopia, Discharge, Dry Eye, Exophthalmos, Floaters, Irritation, Itchy Eyes, Loss of Peripheral Vision, Pain, Photophobia, Requires Corrective Lenses, Sees Flashes, Spots in Vision, Tunnel Vision, Other Visual Disturbances, Loss of Vision, Other Nose/Mouth/Throat: absent: As Per HPI, Epistaxis, Nasal Congestion, Nasal Discharge, Nasal Obstruction, Nasal Trauma, Nose Pain, Post Nasal Drip, Sinus Pain, Sinus Pressure, Bleeding Gums, Change in Voice, Dental Pain, Dry Mouth, Dysphagia, Halitosis, Hoarsness, Lip Swelling, Mouth Lesions, Mouth Pain, Odynophagia, Sore Throat, Throat Swelling, Tongue Swelling, Facial Pain, Neck Pain, Neck Mass, Other - Cardiovascular Cardiovascular: Chest Pain, Dyspnea, Leg Edema - Respiratory Respiratory: Dyspnea - Gastrointestinal Gastrointestinal: absent: As Per HPI, Abdominal Pain, Belching, Bloating, Change in Bowel Habits, Change in Stool Character, Coffee Ground Emesis, Constipation, Cramping, Diarrhea, Dyspepsia, Dysphagia, Early Satiety, Excessive Flatus, Fecal Incontinence, Heartburn, Hematemesis, Hematochezia, Loose Stools, Melena, Nausea, Odynophagia, Temesmus, Vomiting, Other - Genitourinary Genitourinary: absent: As Per HPI, Change in Urinary Stream, Difficulty Urinating, Dysuria, Flank Pain, Hematuria, Pyuria, Nocturia, Urinary Incontinence, Urinary Frequency, Urinary Hesitance, Urinary Urgency, Voiding Freq/Small Amts, Freq UTI, Hx Renal/Bladder Calculi, Hx /Renal Surgery, Bladder Distension, Other - Musculoskeletal Musculoskeletal: absent: As Per HPI, Abnormal Gait, Arthralgias, Atrophy, Back Pain, Deformity, Joint Swelling, Limited Range of Motion, Loss of Height, Muscle Cramps, Muscle Weakness, Myalgias, Neck Pain, Numbness, Radiating Pain into Limb, Stiffness, Tingling, Other - Integumentary Integumentary: absent: As Per HPI, Acne, Alopecia, Bleeding Lesions, Change in Hair, Change in Nails, Change in Pigmentation, Changing Lesions, Dry Skin, Erythema, Furuncle, Hirsutism, Lesions, New Lesions, Non-Healing Lesions, Photosensitivity, Pruritus, Rash, Skin Pain, Skin Ulcer, Sores, Striae, Swelling , Unusual Bruising, Wounds, Jaundice, Other - Neurological Neurological: absent: As Per HPI, Abnormal Gait, Abnormal Hearing, Abnormal Movements, Abnormal Speech, Behavioral Changes, Burning Sensations, Confusion, Convulsions, Disequilibrium, Dizziness, Numbness, Focal Weakness, Frequent Falls , Headaches, Lack of Coordination, Loss of Vision, Memory Loss, Paresthesias, Radicular Pain, Restless Legs, Sensory Deficit, Syncope, Tingling, Tremor, Vertigo, Weakness, Other Visual Disturbances, Other - Psychiatric Psychiatric: absent: As Per HPI, Abnormal Sleep Pattern, Anhedonia, Anxiety, Auditory Hallucinations, Behavioral Changes, Change in Appetite, Change in Libido, Confusion, Depression, Difficulty Concentrating, Hallucinations, Homicidal Ideation, Hopelessness, Irritability, Memory Loss, Mood Swings, Panic Attacks, Paranoia, Suicidal Ideation, Visual Hallucinations, Tactile Hallucinations, Other - Endocrine Endocrine: absent: As Per HPI, Change in Body Appearance, Change in Libido, Cold Intolorance, Deepening of Voice, Excessive Sweating, Fatigue, Flushing, Heat Intolorance, Increase in Ring/Shoe/Hat Size, Palpitations, Polydipsia, Polyphagia, Polyuria, Other - Hematologic/Lymphatic Hematologic: absent: As Per HPI, Easy Bleeding, Easy Bruising, Lymphadenopathy, Other Past Patient History - Tetanus Immunizations Tetanus Immunization: Unknown - Past Medical History & Family History Past Medical History?: Yes - Past Social History Smoking Status: Former Smoker - CARDIAC Hx Cardiac Disorders: Yes Hx Atrial Fibrillation: Yes Hx Congestive Heart Failure: Yes Hx Hypercholesterolemia: Yes Hx Hypertension: Yes - PULMONARY Hx Respiratory Disorders: Yes Hx Bronchitis: Yes Hx Chronic Obstructive Pulmonary Disease (COPD): Yes Hx Emphysema: Yes Hx Pneumonia: Yes - NEUROLOGICAL Hx Neurological Disorder: Yes Hx Dementia: Yes - HEENT Hx HEENT Problems: Yes (Wear eyeglasses.) - RENAL Hx Chronic Kidney Disease: Yes (renal failure) Hx Renal Failure: Yes - ENDOCRINE/METABOLIC Hx Endocrine Disorders: No - HEMATOLOGICAL/ONCOLOGICAL Hx Blood Disorders: Yes Hx Anemia: Yes Hx Human Immunodeficiency Virus (HIV): No - INTEGUMENTARY Hx Dermatological Problems: No - MUSCULOSKELETAL/RHEUMATOLOGICAL Hx Musculoskeletal Disorders: Yes Hx Arthritis: Yes Hx Falls: No - GASTROINTESTINAL Hx Gastrointestinal Disorders: Yes Hx Gastritis: Yes - GENITOURINARY/GYNECOLOGICAL Hx Genitourinary Disorders: No - PSYCHIATRIC Hx Psychophysiologic Disorder: No Hx Substance Use: No - SURGICAL HISTORY Hx Surgeries: Yes Hx Cardiac Catheterization: Yes (02/2017) Hx Coronary Artery Bypass Graft: Yes (in 2005) - ANESTHESIA Hx Anesthesia: Yes Hx Anesthesia Reactions: No Hx Malignant Hyperthermia: No Meds Allergies/Adverse Reactions: Allergies Allergy/AdvReac Type Severity Reaction Status Date / Time amlodipine [From [facility]] AdvReac NAUSEA Verified 02/23/17 20:08 - Medications Medications: Current Medications Albuterol/Ipratropium (Duoneb 3 Mg/0.5 Mg (3 Ml) Ud) 3 ml INH RQ6 [facility] Last Admin: 02/24/17 08:03 Dose: 3 ml Apixaban (Eliquis) 5 mg PO BID [facility] PRN Reason: Protocol Last Admin: 02/24/17 09:17 Dose: 5 mg Aspirin (Aspirin Chewable) 81 mg PO DAILY [facility] Last Admin: 02/24/17 09:23 Dose: 81 mg Atorvastatin Calcium (Lipitor) 40 mg PO DAILY [facility] Last Admin: 02/24/17 09:17 Dose: 40 mg Carvedilol (Coreg) 25 mg PO Q12H [facility] Last Admin: 02/24/17 06:44 Dose: Not Given Folic Acid (Folic Acid) 1 mg PO DAILY [facility] Last Admin: 02/24/17 09:17 Dose: 1 mg Furosemide (Lasix) 40 mg PO DAILY [facility] Last Admin: 02/24/17 09:23 Dose: 40 mg Isosorbide Mononitrate (Imdur Er) 30 mg PO DAILY [facility] Last Admin: 02/24/17 09:17 Dose: 30 mg Multivitamins/Minerals (Therapeutic-M Tab) 1 tab PO DAILY [facility] Last Admin: 02/24/17 09:18 Dose: 1 tab Prednisone (Prednisone Tab) 30 mg PO DAILY [facility] Last Admin: 02/24/17 09:18 Dose: 30 mg Promethazine HCl/Dextromethorphan (Phenergan Dm Syrup) 5 ml PO Q6 PRN PRN Reason: for cough Last Admin: 02/24/17 09:20 Dose: 5 ml Valsartan (Diovan) 320 mg PO DAILY [facility] Last Admin: 02/24/17 09:18 Dose: 320 mg Physical Exam - Constitutional Appears: Non-toxic - Head Exam Head Exam: NORMAL INSPECTION - Eye Exam Eye Exam: Normal appearance - ENT Exam ENT Exam: Mucous Membranes Moist - Neck Exam Neck exam: Positive for: Full Rom - Respiratory Exam Respiratory Exam: NORMAL BREATHING PATTERN - Cardiovascular Exam Cardiovascular Exam: REGULAR RHYTHM - GI/Abdominal Exam GI & Abdominal Exam: Normal Bowel Sounds - Rectal Exam Rectal Exam: Deferred - Extremities Exam Extremities exam: Positive for: pedal edema - Back Exam Back exam: NORMAL INSPECTION - Neurological Exam Neurological exam: Alert, Oriented x3 - Psychiatric Exam Psychiatric exam: Normal Affect - Skin Skin Exam: Normal Color Results - Vital Signs Recent Vital Signs: Last Vital Signs Temp 97.3 F L 02/24/17 12:02 Pulse 57 L 02/24/17 12:02 Resp 20 02/24/17 12:02 BP 131/64 02/24/17 12:02 Pulse Ox 96 02/24/17 12:02 - Labs Result Diagrams: 02/23/17 21:10 02/23/17 21:10 Labs: Laboratory Results - last 24 hr 02/23/17 02/23/17 02/23/17 21:10 21:10 21:10 WBC 15.0 H RBC 3.35 L Hgb 10.1 L Hct 30.6 L MCV 91.5 MCH 30.1 MCHC 32.9 L RDW 13.9 Plt Count 167 MPV 8.6 Neut % (Auto) 91.4 H Lymph % (Auto) 2.4 L [place]one % (Auto) 6.1 Eos % (Auto) 0.1 Baso % (Auto) 0.0 Neut # 13.7 H Lymph # 0.4 L [place] # 0.9 H Eos # 0.0 Baso # 0.0 Neutrophils % (Manual) 84 H Band Neutrophils % 2 Lymphocytes % (Manual) 6 L Monocytes % (Manual) 6 Metamyelocytes % 1 H Myelocytes % 1 H Toxic Granulation Present Platelet Estimate Normal Hypochromasia (manual) Slight Anisocytosis (manual) Moderate Tear Drop Cells Slight PT 13.3 H INR 1.2 APTT 24.0 L Sodium 131 L Potassium 4.8 Chloride 93 L Carbon Dioxide 29 Anion Gap 14 BUN 73 H Creatinine 1.6 H Est GFR ( Amer) 51 Est GFR (Non-Af Amer) 42 Random Glucose 278 H Calcium 7.8 L Phosphorus 4.1 Magnesium 2.5 H Total Bilirubin 0.8 AST 27 ALT 55 Alkaline Phosphatase 84 Troponin I 0.0250 NT-Pro-B Natriuret Pep 4070 H Total Protein 5.8 L Albumin 3.2 L Globulin 2.6 Albumin/Globulin Ratio 1.2 - EKG Data EKG Interpreted by: Myself EKG shows normal: Sinus rhythm Assessment & Plan (1) CAD (coronary artery disease) Assessment and Plan: patient is s/p cardiac cath revealing patent bypass grafts. recommend medical therapy and blood pressure control. Status: Chronic (2) Diabetes Assessment and Plan: medical management Status: Acute (3) Moderate COPD (chronic obstructive pulmonary disease) Assessment and Plan: continue bronchodilator therapy Status: Acute
--- NOTE | 2017-02-24 13:27 | CON ---
DATE: 02/24/2017 HISTORY OF PRESENT ILLNESS: Mr. Tsang is a 76-year-old male who is well known to me from prior consultations. He was just discharged home yesterday and then readmitted, after he got home and was unable to get up his flight of stairs. He was brought back by EMS, complaining of shortness of breath. He has had numerous prior admissions to [facility] and each time he gets discharged, does not spend up to 24 hours at home before he comes back. He was offered long-term facility, but both him and his daughter had refused that during his last admission. He also underwent cardiac catheterization and comprehensive pulmonary and cardiac evaluation during his last admission, he was diagnosed to have chronic obstructive pulmonary disease and cardiac arrhythmias. PAST MEDICAL HISTORY: Remarkable for coronary artery disease, atrial fibrillation, congestive heart failure, chronic obstructive pulmonary disease, and hypertension. He also has short-term memory and poor insight in his medical condition. FAMILY HISTORY: Noncontributory. 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 PHYSICAL EXAMINATION GENERAL: The patient is alert, oriented; still appears dyspneic at rest, but on mild exertion. VITAL SIGNS: Blood pressure 153/76, pulse of 58, respiratory rate 20 per minute, he is afebrile with temperature of 97.7 degrees Fahrenheit, and O2 saturation 98% on room air. SKIN: Shows fair turgor. HEENT: Pupils are equal and reactive to light and accommodation. Mouth shows fair hygiene with mucous engorgement of pharynx. NECK: JVP slightly elevated. LUNGS: Coarse bilateral rales with wheezing. HEART: Irregular rhythm, bradycardic, 60 per minute. ABDOMEN: Soft , nontender. No organomegaly. EXTREMITIES: Shows 2+ pitting pedal edema. CENTRAL NERVOUS SYSTEM EXAM: No gross deficits appreciated. LABORATORY DATA: Chest x-ray is remarkable for cardiomegaly, no pleural effusion, no active pulmonary disease. EKG official report is still pending, but review of the EKG by me is remarkable for atrial fibrillation, nonspecific ST-T changes, heart rate of 69 per minute. WBC 15.0, hemoglobin 10.1, platelet count 167,000. Sodium 131, potassium 4.8, BUN of 73, creatinine 1.6, proBNP 4070, and troponin 0.025. IMPRESSION: Acute congestive heart failure, both diastolic and systolic dysfunction, acute exacerbation of chronic obstructive pulmonary disease, leukocytosis, one has to rule out superimposed pulmonary infection, poor compliance to medication and therapy, poor insight into his medical condition, one would suggest long-term placement in a long-term facility or assisted living since the patient is unable to take care of himself at home and keeps getting readmitted to hospital on discharge. We will continue to follow with you. Binh Blanca MD
--- NOTE | 2017-02-24 19:05 | CARD ---
APPROVED REPORT EKG Measurement Heart [id number] <Conclusion> Atrial fibrillation Nonspecific T wave abnormality Abnormal ECG
[2017-02-25] MEDS: Albuterol-Ipratrop 3 mg / 0.5 (3 ml) UD INH SCH ×5 (01:07→19:08)
[2017-02-25] MEDS: Promethazine DM 6.25 mg-15 mg/5 ml Syrup PO PRN ×3 (02:30→21:39)
[2017-02-25 05:22] LABS: BASO % 0.2 % (0.0-2.0); EOS % 0.1 % (0.0-4.0); HEMATOCRIT 28.4 % (35.0-51.0); LYMPH # 0.7 K/uL (1.0-4.3); LYMPH % 5.3 % (20.0-40.0); MEAN CELL VOLUME 92.4 fl (80.0-94.0); MEAN CORPUSCULAR HEMOGLOBIN 30.5 pg (27.0-31.0); MEAN PLATELET VOLUME 8.9 fl (7.2-11.7); MONO # 1.2 K/uL (0.0-0.8); MONO % 9.7 % (0.0-10.0); NEUT # 10.5 K/uL (1.8-7.0); NEUT % 84.7 % (50.0-75.0); WHITE BLOOD COUNT 12.4 K/uL (4.8-10.8)
[2017-02-25 06:22] LABS: CALCIUM 7.7 mg/dL (8.4-10.2); POTASSIUM 4.8 MMOL/L (3.6-5.0)
[2017-02-25] MEDS: Multivitamin With Minerals Tab PO SCH (08:57)
--- NOTE | 2017-02-25 09:11 | PN ---
DATE: 02/25/2017 SUBJECTIVE: The patient is seen and examined. Interim events noted. Consults noted and appreciated. Cardiology and pulmonology followup and intervention noted and appreciated. The patient remains in Progressive Care Unit on telemetry monitoring. The patient is sleepy, arousable, feels okay. Denies any chest pain or shortness of breath at rest. No other specific complaints. PHYSICAL EXAMINATION: GENERAL: The patient is in no acute distress. VITAL SIGNS: Stable. HEART: S1 and S2, normal and regular. LUNGS: Good bilateral air exchange. ABDOMEN: Soft, nontender. EXTREMITIES: No edema. No calf swelling. No tenderness. No acute ischemia. CENTRAL NERVOUS SYSTEM: Essentially unchanged. DIAGNOSTIC DATA: Available diagnostic data reviewed. Telemetry monitoring does not reveal significant arrhythmias. ASSESSMENT AND PLAN: Overall, the patient's general medical condition is stable. Plan as ordered. Joel Caruso MD
--- NOTE | 2017-02-25 13:45 | CP.PCM.PN ---
Subjective - Date & Time of Evaluation Date of Evaluation: 02/25/17 Time of Evaluation: 13:44 - Subjective Subjective: NO NEW CLINICAL FINDINGS SOB IMPROVING NO CHEST PAINS Objective - Vital Signs/Intake and Output Vital Signs (last 24 hours): Temp Pulse Resp BP Pulse Ox 98.2 F 55 L 20 115/63 99 02/25/17 13:00 02/25/17 13:00 02/25/17 13:00 02/25/17 13:00 02/25/17 13:00 Intake and Output: 02/25/17 02/25/17 06:59 18:59 Intake Total 500 Output Total 700 Balance -200 - Medications Medications: Current Medications Albuterol/Ipratropium (Duoneb 3 Mg/0.5 Mg (3 Ml) Ud) 3 ml INH RQ6 [facility] Last Admin: 02/25/17 13:40 Dose: 3 ml Apixaban (Eliquis) 5 mg PO BID [facility] PRN Reason: Protocol Last Admin: 02/25/17 08:57 Dose: 5 mg Aspirin (Aspirin Chewable) 81 mg PO DAILY [facility] Last Admin: 02/25/17 08:57 Dose: 81 mg Atorvastatin Calcium (Lipitor) 40 mg PO DAILY [facility] Last Admin: 02/25/17 08:58 Dose: 40 mg Carvedilol (Coreg) 25 mg PO Q12H [facility] Last Admin: 02/25/17 02:29 Dose: 25 mg Clonazepam (Klonopin) 0.5 mg PO BID PRN PRN Reason: Anxiety Last Admin: 02/25/17 11:31 Dose: 0.5 mg Folic Acid (Folic Acid) 1 mg PO DAILY [facility] Last Admin: 02/25/17 08:57 Dose: 1 mg Furosemide (Lasix) 40 mg PO DAILY [facility] Last Admin: 02/25/17 08:58 Dose: 40 mg Isosorbide Mononitrate (Imdur Er) 30 mg PO DAILY [facility] Last Admin: 02/25/17 08:59 Dose: 30 mg Multivitamins/Minerals (Therapeutic-M Tab) 1 tab PO DAILY [facility] Last Admin: 02/25/17 08:57 Dose: 1 tab Prednisone (Prednisone Tab) 30 mg PO DAILY [facility] Last Admin: 02/25/17 08:58 Dose: 30 mg Promethazine HCl/Dextromethorphan (Phenergan Dm Syrup) 5 ml PO Q6 PRN PRN Reason: for cough Last Admin: 02/25/17 08:59 Dose: 5 ml Spironolactone (Aldactone) 25 mg PO DAILY [facility] Last Admin: 02/25/17 08:57 Dose: 25 mg Valsartan (Diovan) 320 mg PO DAILY [facility] Last Admin: 02/25/17 08:59 Dose: 320 mg - Labs Labs: 02/25/17 04:30 02/25/17 04:30 PT 13.3 Seconds (9.8-13.1) H 02/23/17 21:10 INR 1.2 (0.9-1.2) 02/23/17 21:10 APTT 24.0 Seconds (25.6-37.1) L 02/23/17 21:10 - Constitutional Appears: Chronically Ill - Head Exam Head Exam: ATRAUMATIC, NORMAL INSPECTION, NORMOCEPHALIC - Eye Exam Eye Exam: EOMI, Normal appearance, PERRL Pupil Exam: NORMAL ACCOMODATION, PERRL - ENT Exam ENT Exam: Mucous Membranes Moist, Normal Exam - Neck Exam Neck Exam: Full ROM, Normal Inspection. absent: Lymphadenopathy - Respiratory Exam Respiratory Exam: Decreased Breath Sounds, Rales, NORMAL BREATHING PATTERN - Cardiovascular Exam Cardiovascular Exam: Bradycardia, Irregular Rhythm, +S1, +S2. absent: Murmur - GI/Abdominal Exam GI & Abdominal Exam: Soft, Normal Bowel Sounds. absent: Tenderness - Rectal Exam Rectal Exam: NORMAL INSPECTION - Extremities Exam Extremities Exam: Full ROM, Normal Capillary Refill, Normal Inspection, Pedal Edema. absent: Joint Swelling - Back Exam Back Exam: NORMAL INSPECTION - Neurological Exam Neurological Exam: Alert, Awake, CN II-XII Intact, Normal Gait, Oriented x3 - Psychiatric Exam Psychiatric exam: Normal Affect, Normal Mood - Skin Skin Exam: Dry, Intact, Normal Color, Warm Assessment and Plan - Assessment and Plan (Free Text) Assessment: CHF COPD Plan: CONTINUE PRESENT RX
[2017-02-26] MEDS: Albuterol-Ipratrop 3 mg / 0.5 (3 ml) UD INH SCH ×4 (01:01→19:06)
[2017-02-26] MEDS: Multivitamin With Minerals Tab PO SCH (08:53)
[2017-02-26] MEDS: Promethazine DM 6.25 mg-15 mg/5 ml Syrup PO PRN ×3 (08:56→22:10)
--- NOTE | 2017-02-26 10:26 | PN ---
DATE: 02/26/2017 SUBJECTIVE: The patient is seen and examined. Interim events noted. Consults noted and appreciated. Pulmonary consult and intervention noted and appreciated. 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 Patient remains in Progressive Care Unit, is on telemetry monitoring. Patient is sleepy, arousable. Denies any specific complaint of chest pain or shortness of breath. PHYSICAL EXAMINATION: GENERAL: The patient is in no acute distress. VITAL SIGNS: Stable. HEART: S1 and S2, normal and regular. LUNGS: Good bilateral air exchange. ABDOMEN: Soft, nontender. EXTREMITIES: No edema. No calf swelling. No tenderness. No acute ischemia. CENTRAL NERVOUS SYSTEM: Essentially unchanged. DIAGNOSTIC DATA: Available diagnostic data reviewed. Telemetry monitoring does not reveal significant arrhythmias. ASSESSMENT AND PLAN: Overall, patient is clinically stable. Plan as ordered. Joel Caruso MD
--- NOTE | 2017-02-26 11:00 | CP.PCM.PN ---
Subjective - Date & Time of Evaluation Date of Evaluation: 02/26/17 Time of Evaluation: 11:00 - Subjective Subjective: LYING COMFORTABLY IN BED DENIES CHEST PAINS/SOB Objective - Vital Signs/Intake and Output Vital Signs (last 24 hours): Temp Pulse Resp BP Pulse Ox 97.4 F L 56 L 16 132/69 100 02/26/17 07:59 02/26/17 07:59 02/26/17 07:59 02/26/17 08:57 02/26/17 07:59 Intake and Output: 02/26/17 02/26/17 06:59 18:59 Intake Total 300 Output Total 600 Balance -300 - Medications Medications: Current Medications Albuterol/Ipratropium (Duoneb 3 Mg/0.5 Mg (3 Ml) Ud) [address] [facility] Last Admin: 02/26/17 07:36 Dose: 3 ml Apixaban (Eliquis) 5 mg PO BID [facility] PRN Reason: Protocol Last Admin: 02/26/17 08:53 Dose: 5 mg Aspirin (Aspirin Chewable) [address] [facility] Last Admin: 02/26/17 08:53 Dose: 81 mg Atorvastatin Calcium (Lipitor) [address] [facility] Last Admin: 02/26/17 08:54 Dose: 40 mg Carvedilol (Coreg) 25 mg PO Q12H [facility] Last Admin: 02/26/17 01:25 Dose: Not Given Clonazepam (Klonopin) 0.5 mg PO BID PRN PRN Reason: Anxiety Last Admin: 02/25/17 21:39 Dose: 0.5 mg Folic Acid (Folic Acid) 1 mg PO DAILY [facility] Last Admin: 02/26/17 08:54 Dose: 1 mg Furosemide (Lasix) 40 mg PO DAILY [facility] Last Admin: 02/26/17 08:57 Dose: 40 mg Isosorbide Mononitrate (Imdur Er) [address] [facility] Last Admin: 02/26/17 08:54 Dose: 30 mg Multivitamins/Minerals (Therapeutic-M Tab) [address] [facility] Last Admin: 02/26/17 08:53 Dose: 1 tab Prednisone (Prednisone Tab) [address] [facility] Last Admin: 02/26/17 08:55 Dose: 30 mg Promethazine HCl/Dextromethorphan (Phenergan Dm Syrup) 5 ml PO Q6 PRN PRN Reason: for cough Last Admin: 02/26/17 08:56 Dose: 5 ml Spironolactone (Aldactone) [address] [facility] Last Admin: 02/26/17 08:53 Dose: 25 mg Valsartan (Diovan) [address] [facility] Last Admin: 02/26/17 08:54 Dose: 320 mg - Labs Labs: 02/25/17 04:30 02/25/17 04:30 PT 13.3 Seconds (9.8-13.1) H 02/23/17 21:10 INR 1.2 (0.9-1.2) 02/23/17 21:10 APTT 24.0 Seconds (25.6-37.1) L 02/23/17 21:10 - Constitutional Appears: No Acute Distress, Chronically Ill - Head Exam Head Exam: ATRAUMATIC, NORMAL INSPECTION, NORMOCEPHALIC - Eye Exam Eye Exam: EOMI, Normal appearance, PERRL Pupil Exam: NORMAL ACCOMODATION, PERRL - ENT Exam ENT Exam: Mucous Membranes Moist, Normal Exam - Neck Exam Neck Exam: Full ROM, Normal Inspection. absent: Lymphadenopathy - Respiratory Exam Respiratory Exam: Decreased Breath Sounds, Rales, Wheezes, NORMAL BREATHING PATTERN - Cardiovascular Exam Cardiovascular Exam: REGULAR RHYTHM, +S1, +S2. absent: Murmur - GI/Abdominal Exam GI & Abdominal Exam: Soft, Normal Bowel Sounds. absent: Tenderness - Rectal Exam Rectal Exam: NORMAL INSPECTION - Extremities Exam Extremities Exam: Full ROM, Normal Capillary Refill, Normal Inspection, Pedal Edema. absent: Joint Swelling - Back Exam Back Exam: NORMAL INSPECTION - Neurological Exam Neurological Exam: Alert, Awake, CN II-XII Intact, Normal Gait, Oriented x3 - Psychiatric Exam Psychiatric exam: Normal Affect, Normal Mood - Skin Skin Exam: Dry, Intact, Normal Color, Warm Assessment and Plan - Assessment and Plan (Free Text) Assessment: CHF COPD EXAC Plan: CONTINUE PRESENT RX [employer]APER STERO[employer]
[2017-02-27] MEDS: Albuterol-Ipratrop 3 mg / 0.5 (3 ml) UD INH SCH ×4 (01:01→19:26)
[2017-02-27 07:16] LABS: HEMATOCRIT 28.2 % (35.0-51.0); MEAN CELL VOLUME 92.3 fl (80.0-94.0); MEAN CORPUSCULAR HEMOGLOBIN 30.5 pg (27.0-31.0); WHITE BLOOD COUNT 9.8 K/uL (4.8-10.8)
[2017-02-27 07:42] LABS: ALB/GLOB RATIO 1.1 (1.0-2.1); ALKALINE PHOSPHATASE 77 U/L (38-126); ALT/SGPT 43 U/L (21-72); AST/SGOT 17 U/L (17-59); BILIRUBIN,TOTAL 0.7 mg/dl (0.2-1.3); BLOOD UREA NITROGEN 36 mg/dl (9-20); CARBON DIOXIDE 33 mmol/L (22-30); CHLORIDE 100 mmol/L (98-107); GFR AFRICAN-AMERICAN > 60; GLUCOSE,RANDOM 151 mg/dL (75-110); POTASSIUM 5.5 MMOL/L (3.6-5.0); SODIUM 137 mmol/l (132-148); TOTAL PROTEIN 5.5 G/DL (6.3-8.2)
[2017-02-27] MEDS: Multivitamin With Minerals Tab PO SCH (09:08)
--- NOTE | 2017-02-27 10:24 | PN ---
DATE: 02/27/2017 SUBJECTIVE: The patient is seen and examined. Interim events noted. Consults noted and appreciated. Pulmonary followup and intervention noted and appreciated. The patient remains in Progressive Care Unit on telemetry monitoring. The patient is sleepy, arousable. Denies any specific complaint of chest pain or shortness of breath. PHYSICAL EXAMINATION: GENERAL: The patient is in no acute distress. VITAL SIGNS: Stable. HEART: S1 and S2, normal and regular. LUNGS: Good bilateral air exchange. ABDOMEN: Soft, nontender. EXTREMITIES: No calf swelling. No tenderness. No acute ischemia. CENTRAL NERVOUS SYSTEM: Essentially unchanged. DIAGNOSTIC DATA: Available diagnostic data reviewed. Telemetry monitoring does not reveal significant arrhythmias. ASSESSMENT AND PLAN: Overall, the patient's general medical condition is stable. Plan as ordered. Joel Caruso MD
[2017-02-28] MEDS: Albuterol-Ipratrop 3 mg / 0.5 (3 ml) UD INH SCH ×4 (01:35→19:08)
[2017-02-28 05:26] LABS: HEMATOCRIT 30.2 % (35.0-51.0); MEAN CELL VOLUME 92.5 fl (80.0-94.0); MEAN CORPUSCULAR HEMOGLOBIN 30.1 pg (27.0-31.0); MEAN CORPUSCULAR HGB CONC 32.5 g/dL (33.0-37.0); RED CELL DISTRIBUTION WIDTH 14.3 % (11.5-14.5); WHITE BLOOD COUNT 10.1 K/uL (4.8-10.8)
[2017-02-28 05:28] LABS: ALB/GLOB RATIO 1.1 (1.0-2.1); ALKALINE PHOSPHATASE 81 U/L (38-126); ALT/SGPT 45 U/L (21-72); AST/SGOT 14 U/L (17-59); BILIRUBIN,TOTAL 0.8 mg/dl (0.2-1.3); BLOOD UREA NITROGEN 37 mg/dl (9-20); CALCIUM 8.2 mg/dL (8.4-10.2); CARBON DIOXIDE 30 mmol/L (22-30); CHLORIDE 100 mmol/L (98-107); GFR AFRICAN-AMERICAN > 60; GLUCOSE,RANDOM 146 mg/dL (75-110); POTASSIUM 5.7 MMOL/L (3.6-5.0); SODIUM 136 mmol/l (132-148)
[2017-02-28] MEDS: Multivitamin With Minerals Tab PO SCH (09:08)
--- NOTE | 2017-02-28 09:09 | PN ---
DATE: 02/28/2017 SUBJECTIVE: The patient is seen and examined. Interim events noted. Consults noted and appreciated. The patient remains in Progressive Care Unit on telemetry monitoring. Feels okay. Denies any chest pain or shortness of breath. PHYSICAL EXAMINATION: GENERAL: The patient is in no acute distress. VITAL SIGNS: Stable. HEART: S1 and S2, normal and regular. LUNGS: Good bilateral air exchange. ABDOMEN: Soft, nontender. EXTREMITIES: No edema. No calf swelling. No tenderness. No acute ischemia. CENTRAL NERVOUS SYSTEM: Essentially unchanged. DIAGNOSTIC DATA: Available diagnostic data reviewed. Telemetry monitoring does not reveal significant arrhythmias. ASSESSMENT AND PLAN: Overall, the patient's general medical condition is stable. Plan as ordered. Joel Caruso MD
--- NOTE | 2017-02-28 09:48 | CP.PCM.PN ---
Subjective - Date & Time of Evaluation Date of Evaluation: 02/28/17 Time of Evaluation: 09:48 - Subjective Subjective: NO APPARENT DISTRESS NO CHEST PAINS COUGH LESS POOR MEMORY Objective - Vital Signs/Intake and Output Vital Signs (last 24 hours): Temp Pulse Resp BP Pulse Ox 96.8 F L 62 20 156/64 H 100 02/28/17 08:44 02/28/17 08:44 02/28/17 08:44 02/28/17 09:08 02/28/17 08:44 - Medications Medications: Current Medications Albuterol/Ipratropium (Duoneb 3 Mg/0.5 Mg (3 Ml) Ud) 3 ml INH RQ6 [facility] Last Admin: 02/28/17 07:32 Dose: 3 ml Apixaban (Eliquis) 5 mg PO BID [facility] PRN Reason: Protocol Last Admin: 02/28/17 09:08 Dose: 5 mg Aspirin (Aspirin Chewable) 81 mg PO DAILY [facility] Last Admin: 02/28/17 09:08 Dose: 81 mg Atorvastatin Calcium (Lipitor) 40 mg PO DAILY [facility] Last Admin: 02/28/17 09:08 Dose: 40 mg Carvedilol (Coreg) 25 mg PO Q12H [facility] Last Admin: 02/28/17 01:10 Dose: Not Given Clonazepam (Klonopin) 0.5 mg PO BID PRN PRN Reason: Anxiety Last Admin: 02/27/17 12:44 Dose: 0.5 mg Folic Acid (Folic Acid) 1 mg PO DAILY [facility] Last Admin: 02/28/17 09:08 Dose: 1 mg Furosemide (Lasix) 40 mg PO DAILY [facility] Last Admin: 02/28/17 09:08 Dose: 40 mg Isosorbide Mononitrate (Imdur Er) 30 mg PO DAILY [facility] Last Admin: 02/28/17 09:08 Dose: 30 mg Multivitamins/Minerals (Therapeutic-M Tab) 1 tab PO DAILY [facility] Last Admin: 02/28/17 09:08 Dose: 1 tab Prednisone (Prednisone Tab) 20 mg PO DAILY [facility] Last Admin: 02/28/17 09:08 Dose: 20 mg Promethazine HCl/Dextromethorphan (Phenergan Dm Syrup) 5 ml PO Q6 PRN PRN Reason: for cough Last Admin: 02/26/17 22:10 Dose: 5 ml Valsartan (Diovan) 320 mg PO DAILY [facility] Last Admin: 02/28/17 09:07 Dose: 320 mg - Labs Labs: 02/28/17 04:40 02/28/17 04:40 PT 13.3 Seconds (9.8-13.1) H 02/23/17 21:10 INR 1.2 (0.9-1.2) 02/23/17 21:10 APTT 24.0 Seconds (25.6-37.1) L 02/23/17 21:10 - Constitutional Appears: Chronically Ill - Head Exam Head Exam: ATRAUMATIC, NORMAL INSPECTION, NORMOCEPHALIC - Eye Exam Eye Exam: EOMI, Normal appearance, PERRL Pupil Exam: NORMAL ACCOMODATION, PERRL - ENT Exam ENT Exam: Mucous Membranes Moist, Normal Exam - Neck Exam Neck Exam: Full ROM, Normal Inspection. absent: Lymphadenopathy - Respiratory Exam Respiratory Exam: Decreased Breath Sounds, Rales, NORMAL BREATHING PATTERN - Cardiovascular Exam Cardiovascular Exam: Irregular Rhythm, +S1, +S2. absent: Murmur - GI/Abdominal Exam GI & Abdominal Exam: Soft, Normal Bowel Sounds. absent: Tenderness - Rectal Exam Rectal Exam: NORMAL INSPECTION - Extremities Exam Extremities Exam: Full ROM, Normal Capillary Refill, Normal Inspection, Pedal Edema. absent: Joint Swelling - Back Exam Back Exam: NORMAL INSPECTION - Neurological Exam Neurological Exam: Alert, Awake, CN II-XII Intact, Normal Gait, Oriented x3 - Psychiatric Exam Psychiatric exam: Normal Affect, Normal Mood - Skin Skin Exam: Dry, Intact, Normal Color, Warm Assessment and Plan - Assessment and Plan (Free Text) Assessment: CHF-IMPROVED COPD [facility] POOR MEMORY Plan: CONTINUE CURRENT RX
--- NOTE | 2017-02-28 17:42 | CP.PCM.PN ---
Subjective - Date & Time of Evaluation Date of Evaluation: 02/28/17 Time of Evaluation: 17:35 - Subjective Subjective: Patient feels well. he denies chest pain. He denies dyspnea Objective - Vital Signs/Intake and Output Vital Signs (last 24 hours): Temp Pulse Resp BP Pulse Ox 97.9 F 64 18 125/67 96 02/28/17 16:39 02/28/17 16:39 02/28/17 16:39 02/28/17 16:39 02/28/17 16:39 - Medications Medications: Current Medications Albuterol/Ipratropium (Duoneb 3 Mg/0.5 Mg (3 Ml) Ud) 3 ml INH RQ6 [facility] Last Admin: 02/28/17 13:38 Dose: 3 ml Apixaban (Eliquis) 5 mg PO BID [facility] PRN Reason: Protocol Last Admin: 02/28/17 09:08 Dose: 5 mg Aspirin (Aspirin Chewable) 81 mg PO DAILY [facility] Last Admin: 02/28/17 09:08 Dose: 81 mg Atorvastatin Calcium (Lipitor) 40 mg PO DAILY [facility] Last Admin: 02/28/17 09:08 Dose: 40 mg Carvedilol (Coreg) 25 mg PO Q12H [facility] Last Admin: 02/28/17 01:10 Dose: Not Given Clonazepam (Klonopin) 0.5 mg PO BID PRN PRN Reason: Anxiety Last Admin: 02/27/17 12:44 Dose: 0.5 mg Folic Acid (Folic Acid) 1 mg PO DAILY [facility] Last Admin: 02/28/17 09:08 Dose: 1 mg Furosemide (Lasix) 40 mg PO DAILY [facility] Last Admin: 02/28/17 09:08 Dose: 40 mg Isosorbide Mononitrate (Imdur Er) 30 mg PO DAILY [facility] Last Admin: 02/28/17 09:08 Dose: 30 mg Multivitamins/Minerals (Therapeutic-M Tab) 1 tab PO DAILY [facility] Last Admin: 02/28/17 09:08 Dose: 1 tab Prednisone (Prednisone Tab) 20 mg PO DAILY [facility] Last Admin: 02/28/17 09:08 Dose: 20 mg Promethazine HCl/Dextromethorphan (Phenergan Dm Syrup) 5 ml PO Q6 PRN PRN Reason: for cough Last Admin: 02/26/17 22:10 Dose: 5 ml Valsartan (Diovan) 320 mg PO DAILY [facility] Last Admin: 02/28/17 09:07 Dose: 320 mg - Labs Labs: 02/28/17 04:40 02/28/17 04:40 PT 13.3 Seconds (9.8-13.1) H 02/23/17 21:10 INR 1.2 (0.9-1.2) 02/23/17 21:10 APTT 24.0 Seconds (25.6-37.1) L 02/23/17 21:10 - Constitutional Appears: Non-toxic - Head Exam Head Exam: NORMAL INSPECTION - Eye Exam Eye Exam: Normal appearance - ENT Exam ENT Exam: Mucous Membranes Moist - Neck Exam Neck Exam: Full ROM - Respiratory Exam Respiratory Exam: NORMAL BREATHING PATTERN - Cardiovascular Exam Cardiovascular Exam: REGULAR RHYTHM - GI/Abdominal Exam GI & Abdominal Exam: Normal Bowel Sounds - Rectal Exam Rectal Exam: Deferred - Extremities Exam Extremities Exam: Normal Inspection - Back Exam Back Exam: NORMAL INSPECTION - Neurological Exam Neurological Exam: Alert - Psychiatric Exam Psychiatric exam: Normal Affect - Skin Skin Exam: Normal Color Assessment and Plan (1) CAD (coronary artery disease) Assessment & Plan: patient is doing well. cardiac cath previously perfomed. Normal left ventricular function. patent bypass grafts. Status: Chronic (2) Diabetes Assessment & Plan: medical therapy Status: Acute (3) Moderate COPD (chronic obstructive pulmonary disease) [facility]. The patient has normal LV function. Therefore he does not have systolic dysfunction. or CHF Status: Acute
[2017-03-01] MEDS: Albuterol-Ipratrop 3 mg / 0.5 (3 ml) UD INH SCH ×2 (00:59→19:09)
[2017-03-01 05:28] LABS: HEMATOCRIT 29.3 % (35.0-51.0); MEAN CELL VOLUME 92.9 fl (80.0-94.0); MEAN CORPUSCULAR HEMOGLOBIN 30.1 pg (27.0-31.0); MEAN CORPUSCULAR HGB CONC 32.4 g/dL (33.0-37.0); RED CELL DISTRIBUTION WIDTH 14.1 % (11.5-14.5); WHITE BLOOD COUNT 9.6 K/uL (4.8-10.8)
[2017-03-01 05:49] LABS: BILIRUBIN,TOTAL 0.7 mg/dl (0.2-1.3); CALCIUM 7.9 mg/dL (8.4-10.2); POTASSIUM 6.1 MMOL/L (3.6-5.0); TOTAL PROTEIN 5.7 G/DL (6.3-8.2)
[2017-03-01] MEDS ORDERED: Sod Polystyrene Sulf 15 gm/60 ml Susp PO ONE (06:50)
--- NOTE | 2017-03-01 08:49 | CP.PCM.PN ---
Subjective - Date & Time of Evaluation Date of Evaluation: 03/01/17 Time of Evaluation: 07:35 - Subjective Subjective: Patient seen and examined with attending bedside, reports feeling better. Denies SOB, chest pain, fever, n, v, abd pain. Objective - Vital Signs/Intake and Output Vital Signs (last 24 hours): Temp Pulse Resp BP Pulse Ox 97.2 F L 58 L 20 163/82 H 99 03/01/17 08:12 03/01/17 08:12 03/01/17 08:12 03/01/17 08:12 03/01/17 08:12 - Medications Medications: Current Medications Albuterol/Ipratropium (Duoneb 3 Mg/0.5 Mg (3 Ml) Ud) 3 ml INH RQ6 [facility] Last Admin: 03/01/17 00:59 Dose: 3 ml Apixaban (Eliquis) 5 mg PO BID [facility] PRN Reason: Protocol Last Admin: 02/28/17 17:48 Dose: 5 mg Aspirin (Aspirin Chewable) 81 mg PO DAILY [facility] Last Admin: 02/28/17 09:08 Dose: 81 mg Atorvastatin Calcium (Lipitor) 40 mg PO DAILY [facility] Last Admin: 02/28/17 09:08 Dose: 40 mg Carvedilol (Coreg) 25 mg PO Q12H [facility] Last Admin: 02/28/17 01:10 Dose: Not Given Clonazepam (Klonopin) 0.5 mg PO BID PRN PRN Reason: Anxiety Last Admin: 02/27/17 12:44 Dose: 0.5 mg Folic Acid (Folic Acid) 1 mg PO DAILY [facility] Last Admin: 02/28/17 09:08 Dose: 1 mg Furosemide (Lasix) 40 mg PO DAILY [facility] Last Admin: 02/28/17 09:08 Dose: 40 mg Isosorbide Mononitrate (Imdur Er) 30 mg PO DAILY [facility] Last Admin: 02/28/17 09:08 Dose: 30 mg Multivitamins/Minerals (Therapeutic-M Tab) 1 tab PO DAILY [facility] Last Admin: 02/28/17 09:08 Dose: 1 tab Prednisone (Prednisone Tab) 20 mg PO DAILY [facility] Last Admin: 02/28/17 09:08 Dose: 20 mg Promethazine HCl/Dextromethorphan (Phenergan Dm Syrup) 5 ml PO Q6 PRN PRN Reason: for cough Last Admin: 02/26/17 22:10 Dose: 5 ml - Labs Labs: 03/01/17 04:35 03/01/17 04:35 PT 13.3 Seconds (9.8-13.1) H 02/23/17 21:10 INR 1.2 (0.9-1.2) 02/23/17 21:10 APTT 24.0 Seconds (25.6-37.1) L 02/23/17 21:10 - Constitutional Appears: Well, Non-toxic, No Acute Distress - Head Exam Head Exam: ATRAUMATIC, NORMAL INSPECTION - Eye Exam Eye Exam: Normal appearance - Neck Exam Neck Exam: Full ROM - Respiratory Exam Respiratory Exam: Decreased Breath Sounds (B/L lung base mild). absent: Rales, Rhonchi, Wheezes - Cardiovascular Exam Cardiovascular Exam: REGULAR RHYTHM, +S1, +S2 - GI/Abdominal Exam GI & Abdominal Exam: Soft, Normal Bowel Sounds. absent: Tenderness - Extremities Exam Extremities Exam: Normal Inspection. absent: Calf Tenderness, Pedal Edema - Neurological Exam Neurological Exam: Alert, Awake, Oriented x3 - Psychiatric Exam Psychiatric exam: Normal Affect - Skin Skin Exam: Intact Assessment and Plan - Assessment and Plan (Free Text) Plan: Assessment & Plan 76 yo ,m, PMhx/o HTN, HLD, A fib, chronic anemia, CAD, COPD, CKD, Dementia admitted for CHF exacerbation (1) CHF exacerbation Systolic CHF continue same medications carvedidol,lasix Cardiology consult appreciated Echo on 02/10/17 showed EF 40-45 %, systolic function moderately impaired Status: Acute (2) COPD exacerbation continue same medications duoneb -patient improving Pulmonology consult appreciated -continue same medications (3) CAD (coronary artery disease) s/p Cardiac cath at [facility] by Dr. Roberts. Cardiac consult appreciated Status: Chronic (4) Atrial fibrillation with controlled ventricular response resume treatment on eliquis controlled (5) CKD III B -chronic (6) Hyperkalemia secondary to CKD -Kayexalate given today -f/u CMP tomorrow (7) DVT prophylaxis Assessment and Plan: on Eliquis
[2017-03-01] MEDS: Multivitamin With Minerals Tab PO SCH (08:58)
[2017-03-01] MEDS: Promethazine DM 6.25 mg-15 mg/5 ml Syrup PO PRN (18:38)
[2017-03-02] MEDS: Albuterol-Ipratrop 3 mg / 0.5 (3 ml) UD INH SCH ×2 (01:00→07:42)
[2017-03-02 08:35] VITALS: RESP 20; O2SAT 100
[2017-03-02] MEDS: Multivitamin With Minerals Tab PO SCH (09:23)
--- NOTE | 2017-03-02 09:54 | CP.PCM.PN ---
Subjective - Date & Time of Evaluation Date of Evaluation: 03/02/17 Time of Evaluation: 09:54 - Subjective Subjective: SOB IMPROVED NO CHEST PAINS Objective - Vital Signs/Intake and Output Vital Signs (last 24 hours): Temp Pulse Resp BP Pulse Ox 97.7 F 60 20 128/67 100 03/02/17 08:34 03/02/17 08:34 03/02/17 08:34 03/02/17 09:23 03/02/17 08:34 - Medications Medications: Current Medications Albuterol/Ipratropium (Duoneb 3 Mg/0.5 Mg (3 Ml) Ud) 3 ml INH RQ6 [facility] Last Admin: 03/02/17 07:42 Dose: Not Given Apixaban (Eliquis) 5 mg PO BID [facility] PRN Reason: Protocol Last Admin: 03/02/17 09:23 Dose: 5 mg Aspirin (Aspirin Chewable) 81 mg PO DAILY [facility] Last Admin: 03/02/17 09:24 Dose: 81 mg Atorvastatin Calcium (Lipitor) 40 mg PO DAILY [facility] Last Admin: 03/02/17 09:24 Dose: 40 mg Carvedilol (Coreg) 25 mg PO Q12H [facility] Last Admin: 02/28/17 01:10 Dose: Not Given Clonazepam (Klonopin) 0.5 mg PO BID PRN PRN Reason: Anxiety Last Admin: 02/27/17 12:44 Dose: 0.5 mg Folic Acid (Folic Acid) 1 mg PO DAILY [facility] Last Admin: 03/02/17 09:24 Dose: 1 mg Furosemide (Lasix) 40 mg PO DAILY [facility] Last Admin: 03/02/17 09:23 Dose: 40 mg Isosorbide Mononitrate (Imdur Er) 30 mg PO DAILY [facility] Last Admin: 03/01/17 08:57 Dose: 30 mg Multivitamins/Minerals (Therapeutic-M Tab) 1 tab PO DAILY [facility] Last Admin: 03/02/17 09:23 Dose: 1 tab Prednisone (Prednisone Tab) 20 mg PO DAILY [facility] Last Admin: 03/02/17 09:24 Dose: 20 mg Promethazine HCl/Dextromethorphan (Phenergan Dm Syrup) 5 ml PO Q6 PRN PRN Reason: for cough Last Admin: 03/01/17 18:38 Dose: 5 ml - Labs Labs: 03/01/17 04:35 03/01/17 12:30 PT 13.3 Seconds (9.8-13.1) H 02/23/17 21:10 INR 1.2 (0.9-1.2) 02/23/17 21:10 APTT 24.0 Seconds (25.6-37.1) L 02/23/17 21:10 - Constitutional Appears: No Acute Distress - Head Exam Head Exam: ATRAUMATIC, NORMAL INSPECTION, NORMOCEPHALIC - Eye Exam Eye Exam: EOMI, Normal appearance, PERRL Pupil Exam: NORMAL ACCOMODATION, PERRL - ENT Exam ENT Exam: Mucous Membranes Moist, Normal Exam - Neck Exam Neck Exam: Full ROM, Normal Inspection. absent: Lymphadenopathy - Respiratory Exam Respiratory Exam: Prolonged Expiratory Phase, NORMAL BREATHING PATTERN - Cardiovascular Exam Cardiovascular Exam: REGULAR RHYTHM, +S1, +S2. absent: Murmur - GI/Abdominal Exam GI & Abdominal Exam: Soft, Normal Bowel Sounds. absent: Tenderness - Rectal Exam Rectal Exam: NORMAL INSPECTION - Extremities Exam Extremities Exam: Full ROM, Normal Capillary Refill, Normal Inspection, Pedal Edema. absent: Joint Swelling Additional comments: PEDAL EDEMA LESS - Back Exam Back Exam: NORMAL INSPECTION - Neurological Exam Neurological Exam: Alert, Awake, CN II-XII Intact, Normal Gait, Oriented x3 - Psychiatric Exam Psychiatric exam: Normal Affect, Normal Mood - Skin Skin Exam: Dry, Intact, Normal Color, Warm Assessment and Plan - Assessment and Plan (Free Text) Assessment: COPD-IMPROVED Plan: NO FURTHER PULMONARY INTERVENTION FOR NOW WILL SIGN OFF CASE AND SEE AGAIN AT YOUR REQUEST
--- NOTE | 2017-03-02 10:15 | CP.PCM.DIS ---
Provider - Provider Date of Admission: 02/23/17 20:39 Attending physician: Joel Caruso MD Time Spent in preparation of Discharge (in minutes): 35 Hospital Course - Lab Results Lab Results: Micro Results 02/24/17 19:10 Sputum Gram Stain - Final 02/24/17 19:10 Sputum Sputum Culture - Final NORMAL SAPROPHYTIC WENCESLAO Most Recent Lab Values WBC 9.6 K/uL (4.8-10.8) 03/01/17 04:35 RBC 3.15 Mil/uL (4.40-5.90) L 03/01/17 04:35 Hgb 9.5 g/dL (12.0-18.0) L 03/01/17 04:35 Hct 29.3 % (35.0-51.0) L 03/01/17 04:35 MCV 92.9 fl (80.0-94.0) 03/01/17 04:35 MCH 30.1 pg (27.0-31.0) 03/01/17 04:35 MCHC 32.4 g/dL (33.0-37.0) L 03/01/17 04:35 RDW 14.1 % (11.5-14.5) 03/01/17 04:35 Plt Count 126 K/uL (130-400) L 03/01/17 04:35 MPV 8.9 fl (7.2-11.7) 02/25/17 04:30 Neut % (Auto) 84.7 % (50.0-75.0) H 02/25/17 04:30 Lymph % (Auto) 5.3 % (20.0-40.0) L 02/25/17 04:30 [place] % (Auto) 9.7 % (0.0-10.0) 02/25/17 04:30 Eos % (Auto) 0.1 % (0.0-4.0) 02/25/17 04:30 Baso % (Auto) 0.2 % (0.0-2.0) 02/25/17 04:30 Neut # 10.5 K/uL (1.8-7.0) H 02/25/17 04:30 Lymph # 0.7 K/uL (1.0-4.3) L 02/25/17 04:30 [place] # 1.2 K/uL (0.0-0.8) H 02/25/17 04:30 Eos # 0.0 K/uL (0.0-0.7) 02/25/17 04:30 Baso # 0.0 K/uL (0.0-0.2) 02/25/17 04:30 Neutrophils % (Manual) 84 % (42-75) H 02/23/17 21:10 Band Neutrophils % 2 % (0-2) 02/23/17 21:10 Lymphocytes % (Manual) 6 % (20-50) L 02/23/17 21:10 Monocytes % (Manual) 6 % (0-10) 02/23/17 21:10 Metamyelocytes % 1 % (0-0) H 02/23/17 21:10 Myelocytes % 1 % (0-0) H 02/23/17 21:10 Toxic Granulation Present 02/23/17 21:10 Platelet Estimate Normal (NORMAL) 02/23/17 21:10 Hypochromasia (manual) Slight 02/23/17 21:10 Anisocytosis (manual) Moderate 02/23/17 21:10 Tear Drop Cells Slight 02/23/17 21:10 PT 13.3 Seconds (9.8-13.1) H 02/23/17 21:10 INR 1.2 (0.9-1.2) 02/23/17 21:10 APTT 24.0 Seconds (25.6-37.1) L 02/23/17 21:10 Sodium 136 mmol/l (132-148) 03/01/17 04:35 Potassium 4.8 MMOL/L (3.6-5.0) 03/01/17 12:30 Chloride 100 mmol/L (98-107) 03/01/17 04:35 Carbon Dioxide 30 mmol/L (22-30) 03/01/17 04:35 Anion Gap 12 (10-20) 03/01/17 04:35 BUN 42 mg/dl (9-20) H 03/01/17 04:35 Creatinine 1.6 mg/dl (0.8-1.5) H 03/01/17 04:35 Est GFR ( Amer) 51 03/01/17 04:35 Est GFR (Non-Af Amer) 42 03/01/17 04:35 Random Glucose 153 mg/dL (75-110) H 03/01/17 04:35 Calcium 7.9 mg/dL (8.4-10.2) L 03/01/17 04:35 Phosphorus 4.1 mg/dl (2.5-4.5) 02/23/17 21:10 Magnesium 2.5 MG/DL (1.6-2.3) H 02/23/17 21:10 Total Bilirubin 0.7 mg/dl (0.2-1.3) 03/01/17 04:35 AST 16 U/L (17-59) L 03/01/17 04:35 ALT 41 U/L (21-72) 03/01/17 04:35 Alkaline Phosphatase 89 U/L (38-126) 03/01/17 04:35 Troponin I 0.0250 ng/mL (0.00-0.120) 02/23/17 21:10 NT-Pro-B Natriuret Pep 4070 pg/ml (0-900) H 02/23/17 21:10 Total Protein 5.7 G/DL (6.3-8.2) L 03/01/17 04:35 Albumin 2.9 g/dL (3.5-5.0) L 03/01/17 04:35 Globulin 2.8 gm/dL (2.2-3.9) 03/01/17 04:35 Albumin/Globulin Ratio 1.0 (1.0-2.1) 03/01/17 04:35 - Hospital Course Hospital Course: 76 y/o male with past medical history of hypertension, hypercholesterolemia, a- fib, anemia, arthritis, CAD, COPD, CVA, dementia, chronic kidney disease who was readmitted for CHF exacerbation and COPD. Patient returned to hospital after last admission due to persisten SOB. 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 Hyperkalemia noted and corrected. patient medically cleared to be discharged and to have f/u with PMD in 7 days Diagnosis (1) CHF exacerbation Systolic CHF -improved continue same medications carvedidol,lasix Cardiology consult appreciated Echo on 02/10/17 showed EF 40-45 %, systolic function moderately impaired (2) COPD exacerbation -improved continue same medications duoneb Pulmonology consult appreciated -continue same medications (3) CAD (coronary artery disease) -stable s/p Cardiac cath at [facility] by Dr. Roberts. Cardiac consult appreciated Status: Chronic (4) Atrial fibrillation with controlled ventricular response -controlled resume treatment on eliquis controlled (5) CKD III B -chronic (6) Hyperkalemia -resolved. K today 4.8 secondary to CKD (7) DVT prophylaxis on Eliquis Discharge Exam - Head Exam Head Exam: ATRAUMATIC, NORMAL INSPECTION, NORMOCEPHALIC - Eye Exam Eye Exam: Normal appearance - ENT Exam ENT Exam: Normal Exam - Respiratory Exam Respiratory Exam: absent: Rales, Rhonchi, Wheezes - Cardiovascular Exam Cardiovascular Exam: REGULAR RHYTHM, +S1, +S2 - GI/Abdominal Exam GI & Abdominal Exam: Normal Bowel Sounds, Soft. absent: Guarding, Tenderness - Extremities Exam Extremities exam: normal inspection - Neurological Exam Neurological exam: Alert, Oriented x3 - Psychiatric Exam Psychiatric exam: Normal Affect, Normal Mood - Skin Skin Exam: Intact Discharge Plan - Follow Up Plan Condition: GUARDED Disposition: HOME/ ROUTINE Instructions: Heart Failure (DC) Additional Instructions: follow up with Dr. Kincaid on tuesdaymar 09 at 11am Referrals: Joel Caruso MD [Staff Provider] - Gerardo Kincaid MD [Family Provider] -
[2017-03-02 13:09] VITALS: BP 133/64; PULSE 68; TEMP 98.5
== END 2017-03-02 13:45 | disposition home health service (06) | DRG 291 ==
LOC: H.ER 20:03 → H.ERHOLD 20:39 → H.TEL 23:58
PROVIDERS: ADMIT Internal Medicine; ATTEND Internal Medicine
DX: I13.0 Hypertensive heart and chronic kidney disease with heart failure and stage 1 through stage 4 chronic kidney disease, or unspecified chronic kidney disease (principal); I50.23 Acute on chronic systolic (congestive) heart failure; J44.1 Chronic obstructive pulmonary disease with (acute) exacerbation; E87.5 Hyperkalemia; N18.3 Chronic kidney disease, stage 3 (moderate); E11.22 Type 2 diabetes mellitus with diabetic chronic kidney disease; I48.2 Chronic atrial fibrillation; I25.10 Atherosclerotic heart disease of native coronary artery without angina pectoris; F03.90 Unspecified dementia, unspecified severity, without behavioral disturbance, psychotic disturbance, mood disturbance, and anxiety; E78.00 Pure hypercholesterolemia, unspecified; D64.9 Anemia, unspecified; K29.70 Gastritis, unspecified, without bleeding; M19.90 Unspecified osteoarthritis, unspecified site; R26.81 Unsteadiness on feet; Z79.01 Long term (current) use of anticoagulants; Z79.51 Long term (current) use of inhaled steroids; Z95.1 Presence of aortocoronary bypass graft; Z86.73 Personal history of transient ischemic attack (TIA), and cerebral infarction without residual deficits; Z87.891 Personal history of nicotine dependence; Z87.01 Personal history of pneumonia (recurrent)

== ENCOUNTER 2017-03-03 14:28 | Inpatient (IN) | payer MEDICARE, BC ==
[2017-03-03 14:28] VITALS: BMI 29.5
[2017-03-03] MEDS ORDERED: Albuterol 0.083% Inhal Sol (2.5 mg/3 mL) UD INH ONE (15:40)
--- NOTE | 2017-03-03 15:58 | ED PDOC ---
HPI: SOB/CHF/COPD Time Seen by Provider: 03/03/17 14:30 Chief Complaint (Nursing): Shortness Of Breath Chief Complaint (Provider): Shortness of Breath History Per: Family (daughter) History/Exam Limitations: clinical condition (dementia) Onset/Duration Of Symptoms: Hrs Current Symptoms Are (Timing): Still Present Associated Symptoms: denies: Fever, Bloody Cough, Productive Cough Additional Complaint(s): Darwin Tsang, a 76 year old male, with a past medical history of congestive heart failure, chronic obstructive pulmonary disease, cerebrovascular accident, chronic kidney disease, coronary artery disease, dementia, hypertension, hyperlipidemia, atrial fibrillation(currentlyon eliquis) and anemia presents to the ED for an episode of shortness of breath. He reports that the episode lasted about 20 minutes and he took a nebulizer treatment at home before coming in to the ED. Patient states that he currently feels slightly better and denies chest pain and hotness of breath but states he did experience these symptoms prior to coming in to the ED. Denies fever, cough, vomiting and diarrhea. Daughter is currently at bedside Of note: The patient reports that he was recently discharged from the hospital after being admitted for a CHF exacerbation. PMD: No primary care provider - Risk Factors PE Risk Factors: Pos: CHF Past Medical History Vital Signs: Last Vital Signs Temp 98.3 F 03/05/17 21:00 Pulse 78 03/05/17 21:51 Resp 16 03/05/17 21:00 BP 154/68 H 03/05/17 21:51 Pulse Ox 98 03/05/17 21:00 - Medical History PMH: Anemia, Arthritis, Atrial Fibrillation, Bronchitis, CAD, CHF, COPD, CVA ( mild), Dementia, Diabetes (type II), Emphysema, Gastritis, HTN, Hypercholesterolemia, Peripheral Edema, Pneumonia, Chronic Kidney Disease ( renal failure) Denies: HIV - Surgical History Surgical History: CABG (in 2005) - Family History Family History: States: Unknown Family Hx, CAD, Diabetes (father) - Social History Current smoker - smoking cessation education provided: No (quit 2 years ago) Alcohol: None (quit 2 years ago) Drugs: Denies - Immunization History Hx Tetanus Toxoid Vaccination: No Hx Influenza Vaccination: Yes Hx Pneumococcal Vaccination: No - Home Medications Home Medications: Ambulatory Orders Medication Instructions Recorded Albuterol/Ipratropium [Duoneb 3 3 ml INH RQ6 10/22/16 mg/0.5 mg (3 ml) UD] Aspirin [Aspirin Chewable] 81 mg PO DAILY #30 chew 01/26/17 Apixaban [Eliquis] 5 mg PO BID #60 tablet 02/18/17 Atorvastatin [Lipitor] 40 mg PO DAILY #30 tab 02/18/17 Carvedilol [Coreg] 25 mg PO Q12H #60 tab 02/18/17 Folic Acid 1 mg PO DAILY #30 tab 02/18/17 Furosemide [Lasix] 40 mg PO DAILY #30 tab 02/18/17 Isosorbide Mononitrate ER [Imdur 30 mg PO DAILY #30 tab 02/18/17 ER] Multimineral/Multivitamin 1 tab PO DAILY #30 tab 02/18/17 [Therapeutic-M Tab] Budesonide/Formoterol Fumarate 2 puff IH Q12H 03/03/17 [Symbicort 160-4.5 Mcg Inhaler] Valsartan [Diovan] 320 mg PO DAILY 03/03/17 - Allergies Allergies/Adverse Reactions: Allergies Allergy/AdvReac Type Severity Reaction Status Date / Time No Known Allergies Allergy Verified 03/03/17 14:32 Review of Systems ROS Statement: Except As Marked, All Systems Reviewed And Found Negative Constitutional: Negative for: Fever Cardiovascular: Negative for: Chest Pain Respiratory: Positive for: Shortness of Breath. Negative for: Cough Gastrointestinal: Negative for: Vomiting, Diarrhea Physical Exam - Reviewed Nursing Documentation Reviewed: Yes Vital Signs Reviewed: Yes - Physical Exam Appears: Positive for: Non-toxic, No Acute Distress Head Exam: Positive for: ATRAUMATIC, NORMAL INSPECTION, NORMOCEPHALIC Skin: Positive for: Normal Color, Warm, Dry. Negative for: Rash Eye Exam: Positive for: Normal appearance, EOMI, PERRL, Nystagmus ENT: Positive for: Normal ENT Inspection Neck: Positive for: Normal, Painless ROM, Supple Cardiovascular/Chest: Positive for: Regular Rate, Rhythm, Chest Non Tender. Negative for: Tachycardia Respiratory: Positive for: Rhonchi (slight ronchi). Negative for: Wheezing, Respiratory Distress Gastrointestinal/Abdominal: Positive for: Normal Exam, Bowel Sounds, Soft. Negative for: Tenderness, Guarding, Rebound Back: Negative for: Normal Inspection (hematoma on right flank stretching from anterior to posterior munguia snot cross midline), L CVA Tenderness, R CVA Tenderness Neurologic/Psych: Positive for: Alert, Oriented - Laboratory Results Result Diagrams: 03/05/17 05:30 03/05/17 05:30 - ECG O2 Sat by Pulse Oximetry: 98 (RA) Pulse Ox Interpretation: Normal Medical Decision Making Medical Decision Makin Initial Impression 76 y/o male presenting with CHF vs COPD Initial Plan: * CT ABD&PELV w/o PO Contrast * EKG * B-type natriuretic * BMP * Troponin * Udip * CBC * CXR * Albuterol 2.5mg INH * Peak Flow * Reevaluation Given the fact that the patient is on eliqiuis bleed needs to be ruled out. EKG performed: Afib at 56bpm 1609 Chest X-Ray Findings LUNGS: No active pulmonary disease. PLEURA: No significant pleural effusion identified. No pneumothorax apparent. CARDIOVASCULAR: Prominent cardiac silhouette again appreciated with mild cardiomegaly present. No pulmonary derangement. Median sternotomy wires are again seen. Multiple old healed right rib fractures are again evident. VISUALIZED UPPER ABDOMEN: Normal. OTHER FINDINGS: None. IMPRESSION: Stable mild cardiomegaly. No infiltrate or pleural effusion appreciable. 1640 CT Abd and Pelvis FINDINGS: LOWER THORAX: Bibasilar dependent atelectasis appreciate with associated linear atelectasis or fibrosis. No pleural pericardial effusion bilaterally. LIVER: Scattered calcified granulomata are punctate at the at the hepatic dome right lobe liver. The remainder of the liver appears grossly unremarkable. GALLBLADDER AND BILE DUCTS: Unremarkable. PANCREAS: Unremarkable. No gross lesion or ductal dilatation. SPLEEN: Unremarkable. ADRENALS: 1.6 x 1.6 cm nodule seen related to the left adrenal gland measuring 1.4 Hounsfield units compatible with a benign adrenal adenoma. Right adrenal gland appears normal. KIDNEYS AND URETERS: A 3.5 cm left renal cyst is exophytic off the midpole. No obstructive uropathy bilaterally. Renal arterial calcifications are appreciated minimally bilaterally with the tiny hyperdensity related to the upper pole right kidney only a few mm size, too small to characterize. No retroperitoneal hematoma. VASCULATURE: 4.0 x 3.8 cm infrarenal abdominal aortic aneurysm is identified appearing somewhat saccular terminating proximal to the bifurcation. BOWEL: The lack of oral contrast limits evaluation of the bowel. Stomach is mildly distend with retained fluid and gas with the bowel nonobstructive. Limited retained fecal material scattered throughout various large-bowel segments. No pericolic or perienteric reaction is seen within the Mesentery throughout. Gross sigmoid diverticular changes are appreciated which are nonacute APPENDIX: Unremarkable. Normal appendix. PERITONEUM: Unremarkable. No free fluid. No free air. No hemoperitoneum. Bilateral inguinal hernia is identified containing only fat. LYMPH NODES: Unremarkable. No enlarged lymph nodes. BLADDER: Unremarkable. REPRODUCTIVE: Upper limits normal size prostate gland. BONES: Advanced degenerative disease seen at L5-S1 and moderate to severe at L4-5. No destructive bony lesions appreciated throughout the skeletal elements of the abdomen and pelvis. OTHER FINDINGS: None. IMPRESSION: 1. No peritoneal or retroperitoneal hematoma identified this time. No ascites or free intraperitoneal gas. 2. Gross but nonacute sigmoid diverticular disease. 3. 4.0 cm infrarenal abdominal aortic aneurysm, saccular. 4. Left renal cyst. Tiny soft tissue hyperdensity present representing a small hemorrhagic cyst upper pole right kidney too small to characterize and therefore indeterminate in appearance. 1806 Discussed plan with family and answered questions. Discussed that there were incidental results on CT which should be discussed with Dr. Caruso and followed up. Patient's hemoglobin is stable, and same as prior. CT shows no peritoneal bleeding, and patient and family made aware. ProBNP is slightly elevated and Lasix was given. Patient accepted by Dr. Caruso for admission. Scribe Attestation: Documented by Betty Coffey, acting as a scribe for Jabari Winston MD Provider Scribe Attestation: All medical record entries made by the Scribe were at my direction and personally dictated by me. I have reviewed the chart and agree that the record accurately reflects my personal performance of the history, physical exam, medical decision making, and the department course for this patient. I have also personally directed, reviewed, and agree with the discharge instructions and disposition. Disposition - Clinical Impression Clinical Impression: Flank pain - Patient ED Disposition Is Patient to be Admitted: Yes Counseled Patient/Family Regarding: Studies Performed, Diagnosis - Disposition Disposition Time: 16:06 Condition: STABLE - Pt Status Changed To: Hospital Disposition Of: Inpatient - Admit Certification Admit to Inpatient:: After my assessment, the patient will require hospitalization for at least two midnights. This is because of the severity of symptoms shown, intensity of services needed, and/or the medical risk in this patient being treated as an outpatient.
--- NOTE | 2017-03-03 16:10 | RAD ---
HISTORY: ekg COMPARISON: Chest radiograph 02/23/2017 TECHNIQUE: Chest PA and lateral FINDINGS: LUNGS: No active pulmonary disease. PLEURA: No significant pleural effusion identified. No pneumothorax apparent. CARDIOVASCULAR: Prominent cardiac silhouette again appreciated with mild cardiomegaly present. No pulmonary derangement. Median sternotomy wires are again seen. Multiple old healed right rib fractures are again evident. VISUALIZED UPPER ABDOMEN: Normal. OTHER FINDINGS: None. IMPRESSION: Stable mild cardiomegaly. No infiltrate or pleural effusion appreciable.
[2017-03-03] MEDS ORDERED: Albuterol 0.083% Inhal Sol (2.5 mg/3 mL) UD ONE (16:11)
--- NOTE | 2017-03-03 16:41 | CT ---
PROCEDURE: CT Abdomen and Pelvis without intravenous contrast HISTORY: r flank hematoma, pt on eliquis COMPARISON: None. TECHNIQUE: Helical CT of the abdomen and pelvis was performed without oral or intravenous contrast as per referring physician request.. Contrast Dose: None Radiation dose: Total exam DLP = 1062.86 mGy-cm. This CT exam was performed using one or more of the following dose reduction techniques: Automated exposure control, adjustment of the mA and/or kV according to patient size, and/or use of iterative reconstruction technique. FINDINGS: LOWER THORAX: Bibasilar dependent atelectasis appreciate with associated linear atelectasis or fibrosis. No pleural pericardial effusion bilaterally. LIVER: Scattered calcified granulomata are punctate at the at the hepatic dome right lobe liver. The remainder of the liver appears grossly unremarkable. GALLBLADDER AND BILE DUCTS: Unremarkable. PANCREAS: Unremarkable. No gross lesion or ductal dilatation. SPLEEN: Unremarkable. ADRENALS: 1.6 x 1.6 cm nodule seen related to the left adrenal gland measuring 1.4 Hounsfield units compatible with a benign adrenal adenoma. Right adrenal gland appears normal. KIDNEYS AND URETERS: A 3.5 cm left renal cyst is exophytic off the midpole. No obstructive uropathy bilaterally. Renal arterial calcifications are appreciated minimally bilaterally with the tiny hyperdensity related to the upper pole right kidney only a few mm size, too small to characterize. No retroperitoneal hematoma. VASCULATURE: 4.0 x 3.8 cm infrarenal abdominal aortic aneurysm is identified appearing somewhat saccular terminating proximal to the bifurcation. BOWEL: The lack of oral contrast limits evaluation of the bowel. Stomach is mildly distend with retained fluid and gas with the bowel nonobstructive. Limited retained fecal material scattered throughout various large-bowel segments. No pericolic or perienteric reaction is seen within the Mesentery throughout. Gross sigmoid diverticular changes are appreciated which are nonacute APPENDIX: Unremarkable. Normal appendix. PERITONEUM: Unremarkable. No free fluid. No free air. No hemoperitoneum. Bilateral inguinal hernia is identified containing only fat. LYMPH NODES: Unremarkable. No enlarged lymph nodes. BLADDER: Unremarkable. REPRODUCTIVE: Upper limits normal size prostate gland. BONES: Advanced degenerative disease seen at L5-S1 and moderate to severe at L4-5. No destructive bony lesions appreciated throughout the skeletal elements of the abdomen and pelvis. OTHER FINDINGS: None. IMPRESSION: 1. No peritoneal or retroperitoneal hematoma identified this time. No ascites or free intraperitoneal gas. 2. Gross but nonacute sigmoid diverticular disease. 3. 4.0 cm infrarenal abdominal aortic aneurysm, saccular. 4. Left renal cyst. Tiny soft tissue hyperdensity present representing a small hemorrhagic cyst upper pole right kidney too small to characterize and therefore indeterminate in appearance.
[2017-03-03 16:43] LABS: BASO # 0.1 K/uL (0.0-0.2); BASO % 0.8 % (0.0-2.0); EOS # 0.1 K/uL (0.0-0.7); EOS % 1.1 % (0.0-4.0); HEMATOCRIT 28.5 % (35.0-51.0); LYMPH # 1.2 K/uL (1.0-4.3); LYMPH % 13.2 % (20.0-40.0); MEAN CELL VOLUME 93.3 fl (80.0-94.0); MEAN CORPUSCULAR HEMOGLOBIN 31.1 pg (27.0-31.0); MEAN CORPUSCULAR HGB CONC 33.3 g/dL (33.0-37.0); MEAN PLATELET VOLUME 9.4 fl (7.2-11.7); MONO # 0.9 K/uL (0.0-0.8); MONO % 9.9 % (0.0-10.0); NEUT # 6.7 K/uL (1.8-7.0); RED CELL DISTRIBUTION WIDTH 14.2 % (11.5-14.5); WHITE BLOOD COUNT 8.9 K/uL (4.8-10.8)
[2017-03-03 16:54] LABS: POTASSIUM 4.8 MMOL/L (3.6-5.0)
[2017-03-03 17:06] LABS: TROPONIN I 0.032 ng/mL (0.00-0.120)
[2017-03-03] MEDS ORDERED: Fluticasone-Salmeterol 250-50mcg Diskus IH SCH (22:30)
[2017-03-04] MEDS: Fluticasone-Salmeterol 250-50mcg Diskus IH SCH ×3 (00:37→21:49)
[2017-03-04] MEDS: Albuterol-Ipratrop 3 mg / 0.5 (3 ml) UD INH SCH ×4 (01:00→19:25)
[2017-03-04 05:42] LABS: BASO % 0.3 % (0.0-2.0); EOS # 0.1 K/uL (0.0-0.7); EOS % 1.2 % (0.0-4.0); HEMATOCRIT 28.8 % (35.0-51.0); LYMPH # 1.1 K/uL (1.0-4.3); LYMPH % 15.1 % (20.0-40.0); MEAN CELL VOLUME 92.7 fl (80.0-94.0); MEAN CORPUSCULAR HEMOGLOBIN 30.4 pg (27.0-31.0); MEAN CORPUSCULAR HGB CONC 32.8 g/dL (33.0-37.0); MEAN PLATELET VOLUME 8.6 fl (7.2-11.7); MONO # 0.8 K/uL (0.0-0.8); MONO % 10.2 % (0.0-10.0); NEUT # 5.5 K/uL (1.8-7.0); NEUT % 73.2 % (50.0-75.0); RED CELL DISTRIBUTION WIDTH 14.4 % (11.5-14.5); WHITE BLOOD COUNT 7.5 K/uL (4.8-10.8)
[2017-03-04 06:53] LABS: BILIRUBIN,TOTAL 0.8 mg/dl (0.2-1.3); CALCIUM 8.1 mg/dL (8.4-10.2); POTASSIUM 4.4 MMOL/L (3.6-5.0); TOTAL PROTEIN 5.7 G/DL (6.3-8.2)
[2017-03-04 07:40] LABS: ALB/GLOB RATIO 1.1 (1.0-2.1)
--- NOTE | 2017-03-04 09:06 | CP.PCM.HP ---
History of Present Illness - History of Present Illness History of Present Illness: 76 y/o male with past medical history of hypertension, hypercholesterolemia, a- fib( ncurrently on eliquis) , anemia, arthritis, CAD, COPD, CVA, dementia, chronic kidney presented to ED yesterday c/o an episode of shortness of breath and right flank hematoma.He reports that the SOBepisode lasted about 20 minutes and he took a nebulizer treatment at home before coming in to the ED. Patient states that he currently feels slightly better and denies chest pain and hotness of breath but states he did experience these symptoms prior to coming in to the ED. Patient denies any fall, syncope and reports the he does not remember when he noticed the hematoma and has not idea of the cause. Denies fever, cough, vomiting and diarrhea. Patient was recently discharged from Hospital for CHF exacerbation. As per Daughter she reports that his father is having multiples admission and states it could be related with panic attack episodes. She reports that not nurse care happen after he was discharged and today is when nurse went patient's home but he was already hospitalized. PMH: Afib, CHF, HLD, HTN, peripheral edema, bronchitis, COPD, emphysema, hx pneumonia, hx CVA, dementia, CKD, anemia, arthritis, gastritis PSH: CABG (2005) All: NKDA SH: Former tobacco use - 2-3 ppd x 20 yrs; former ETOH use, denies illicit drug use Present on Admission - Present on Admission Any Indicators Present on Admission: No History of DVT/PE: No History of Uncontrolled Diabetes: No Review of Systems - Constitutional Constitutional: As Per HPI - Cardiovascular Cardiovascular: As Per HPI - Respiratory Respiratory: As Per HPI, Dyspnea - Hematologic/Lymphatic Hematologic: Easy Bruising Past Patient History - Infectious Disease Hx of Infectious Diseases: None - Tetanus Immunizations Tetanus Immunization: Unknown - Past Medical History & Family History Past Medical History?: Yes - Past Social History Smoking Status: Former Smoker - CARDIAC Hx Cardiac Disorders: Yes Hx Atrial Fibrillation: Yes Hx Congestive Heart Failure: Yes Hx Hypercholesterolemia: Yes Hx Hypertension: Yes Hx Peripheral Edema: Yes - PULMONARY Hx Respiratory Disorders: Yes Hx Bronchitis: Yes Hx Chronic Obstructive Pulmonary Disease (COPD): Yes Hx Emphysema: Yes Hx Pneumonia: Yes - NEUROLOGICAL Hx Neurological Disorder: Yes HX Cerebrovascular Accident: Yes Hx Dementia: Yes - HEENT Hx HEENT Problems: No - RENAL Hx Chronic Kidney Disease: Yes (CKD) - ENDOCRINE/METABOLIC Hx Endocrine Disorders: No - HEMATOLOGICAL/ONCOLOGICAL Hx Blood Disorders: Yes Hx Anemia: Yes Hx Human Immunodeficiency Virus (HIV): No - INTEGUMENTARY Hx Dermatological Problems: No - MUSCULOSKELETAL/RHEUMATOLOGICAL Hx Musculoskeletal Disorders: Yes Hx Arthritis: Yes Hx Falls: No - GASTROINTESTINAL Hx Gastrointestinal Disorders: Yes Hx Gastritis: Yes - GENITOURINARY/GYNECOLOGICAL Hx Genitourinary Disorders: No - PSYCHIATRIC Hx Psychophysiologic Disorder: No Hx Substance Use: No - SURGICAL HISTORY Hx Surgeries: Yes Hx Coronary Artery Bypass Graft: Yes (in 2005) - ANESTHESIA Hx Anesthesia: Yes Hx Anesthesia Reactions: No Hx Malignant Hyperthermia: No Meds Allergies/Adverse Reactions: Allergies Allergy/AdvReac Type Severity Reaction Status Date / Time No Known Allergies Allergy Verified 03/03/17 14:32 Physical Exam - Constitutional Appears: Non-toxic, No Acute Distress - Head Exam Head Exam: ATRAUMATIC, NORMOCEPHALIC - Eye Exam Eye Exam: Normal appearance - ENT Exam ENT Exam: Mucous Membranes Moist - Neck Exam Neck exam: Positive for: Normal Inspection - Respiratory Exam Respiratory Exam: Clear to Auscultation Bilateral. absent: Rales, Rhonchi, Wheezes - Cardiovascular Exam Cardiovascular Exam: Irregular Rhythm, +S1, +S2 - GI/Abdominal Exam GI & Abdominal Exam: Normal Bowel Sounds, Soft. absent: Guarding, Rebound, Tenderness Additional comments: Large hematoma right flank measured aprox 30 cm x 10 cm that does not cross the mid line of the abdomen - Extremities Exam Extremities exam: Positive for: normal inspection. Negative for: pedal edema - Back Exam Back exam: absent: CVA tenderness (L), CVA tenderness (R) - Neurological Exam Neurological exam: Alert, Oriented x3 - Psychiatric Exam Psychiatric exam: Normal Affect, Normal Mood - Skin Additional comments: Large hematoma right flank measured aprox 30 cm x 10 cm that does not cross the mid line of the abdomen Results - Vital Signs Recent Vital Signs: Last Vital Signs Temp 98.5 F 03/04/17 08:00 Pulse 70 03/04/17 08:00 Resp 20 03/04/17 08:00 BP 149/72 03/04/17 08:00 Pulse Ox 96 03/04/17 08:00 - Labs Result Diagrams: 03/04/17 05:15 03/04/17 05:15 Labs: Laboratory Results - last 24 hr 03/03/17 03/03/17 03/04/17 16:37 16:37 05:15 WBC 8.9 7.5 RBC 3.06 L 3.11 L Hgb 9.5 L 9.5 L Hct 28.5 L 28.8 L MCV 93.3 92.7 MCH 31.1 H 30.4 MCHC 33.3 32.8 L RDW 14.2 14.4 Plt Count 141 123 L MPV 9.4 8.6 Neut % (Auto) 75.0 73.2 Lymph % (Auto) 13.2 L 15.1 L [place] % (Auto) 9.9 10.2 H Eos % (Auto) 1.1 1.2 Baso % (Auto) 0.8 0.3 Neut # 6.7 5.5 Lymph # 1.2 1.1 [place] # 0.9 H 0.8 Eos # 0.1 0.1 Baso # 0.1 0.0 Sodium 135 Potassium 4.8 Chloride 101 Carbon Dioxide 27 Anion Gap 12 BUN 44 H Creatinine 1.8 H Est GFR ( Amer) 45 Est GFR (Non-Af Amer) 37 Random Glucose 128 H Calcium 8.0 L Total Bilirubin AST ALT Alkaline Phosphatase Troponin I 0.0320 NT-Pro-B Natriuret Pep 1840 H Total Protein Albumin Globulin Albumin/Globulin Ratio 03/04/17 05:15 WBC RBC Hgb Hct MCV MCH MCHC RDW Plt Count MPV Neut % (Auto) Lymph % (Auto) [place] % (Auto) Eos % (Auto) Baso % (Auto) Neut # Lymph # [place] # Eos # Baso # Sodium 137 Potassium 4.4 Chloride 100 Carbon Dioxide 30 Anion Gap 11 BUN 38 H Creatinine 1.5 Est GFR ( Amer) 55 Est GFR (Non-Af Amer) 46 Random Glucose 103 Calcium 8.1 L Total Bilirubin 0.8 AST 16 L ALT 47 Alkaline Phosphatase 96 Troponin I NT-Pro-B Natriuret Pep Total Protein 5.7 L Albumin 3.0 L Globulin 2.7 Albumin/Globulin Ratio 1.1 Assessment & Plan - Assessment and Plan (Free Text) Plan: Assessment/Plan 1) Right Flank hematoma -secondary to anticoagulation( eliquis) vs fall or trauma not reported by patient -Cardiology consult suggested -CT abd: no intrabdominal or retroperitoneal bleeding 2) Abdominal aortic aneurysm CT abd: 4 cm saccular aneurysm vascular surgeon consulted. no intervention at this time (3) Systolic CHF continue same medications carvedidol,lasix Cardiology consult suggested Echo on 02/10/17 showed EF 40-45 %, systolic function moderately impaired (4) COPD continue same medications duoneb Pulmonology consult suggested -continue same medications (5) CAD (coronary artery disease) -stable s/p Cardiac cath at [facility] by Dr. Roberts. Cardiac consult appreciated (6) Atrial fibrillation with controlled ventricular response -controlled -on eliquis controlled (7) CKD III B -chronic (8) DVT prophylaxis on Eliquis
[2017-03-04] MEDS: Multivitamin With Minerals Tab PO SCH (10:07)
--- NOTE | 2017-03-04 11:43 | CP.PCM.CON ---
History of Present Illness - History of Present Illness History of Present Illness: Vascular surgery consult for Dr. Neha Emmanuel, PGY-1 Pt S & E at bedside. History as per EMR- pt with dementia. 76M w/PMH sig for afib, HTN, HLD, former tobacco use consulted for infrarenal saccular aortic aneurysm. EMR review- 2013 aneurysm was 3.3 cm; 2017 imaging showed increased size to 4cm. Pt denies abdominal pain, chest pain, N & V, F & C, SOB, numbness & tingling of extremities, weakness. PMH: Afib, CHF, HLD, HTN, peripheral edema, bronchitis, COPD, emphysema, hx pneumonia, hx CVA, dementia, CKD, anemia, arthritis, gastritis PSH: CABG (2005) All: NKDA SH: Former tobacco use - 2-3 ppd x 20 yrs; former ETOH use, denies illicit drug use Review of Systems - Review of Systems All systems: reviewed and no additional remarkable complaints except - Constitutional Constitutional: absent: Chills, Fever - Cardiovascular Cardiovascular: absent: Chest Pain, Leg Edema - Gastrointestinal Gastrointestinal: absent: Abdominal Pain, Nausea, Vomiting - Musculoskeletal Musculoskeletal: absent: Numbness, Tingling - Integumentary Integumentary: Unusual Bruising (Right flank/RLQ/back) - Neurological Neurological: absent: Weakness - Psychiatric Psychiatric: Memory Loss (dementia) Past Patient History - Infectious Disease Hx of Infectious Diseases: None - Tetanus Immunizations Tetanus Immunization: Unknown - Past Medical History & Family History Past Medical History?: Yes - Past Social History Smoking Status: Former Smoker - CARDIAC Hx Cardiac Disorders: Yes Hx Atrial Fibrillation: Yes Hx Congestive Heart Failure: Yes Hx Hypercholesterolemia: Yes Hx Hypertension: Yes Hx Peripheral Edema: Yes - PULMONARY Hx Respiratory Disorders: Yes Hx Bronchitis: Yes Hx Chronic Obstructive Pulmonary Disease (COPD): Yes Hx Emphysema: Yes Hx Pneumonia: Yes - NEUROLOGICAL Hx Neurological Disorder: Yes HX Cerebrovascular Accident: Yes Hx Dementia: Yes - HEENT Hx HEENT Problems: No - RENAL Hx Chronic Kidney Disease: Yes (CKD) - ENDOCRINE/METABOLIC Hx Endocrine Disorders: No - HEMATOLOGICAL/ONCOLOGICAL Hx Blood Disorders: Yes Hx Anemia: Yes Hx Human Immunodeficiency Virus (HIV): No - INTEGUMENTARY Hx Dermatological Problems: No - MUSCULOSKELETAL/RHEUMATOLOGICAL Hx Musculoskeletal Disorders: Yes Hx Arthritis: Yes Hx Falls: No - GASTROINTESTINAL Hx Gastrointestinal Disorders: Yes Hx Gastritis: Yes - GENITOURINARY/GYNECOLOGICAL Hx Genitourinary Disorders: No - PSYCHIATRIC Hx Psychophysiologic Disorder: No Hx Substance Use: No - SURGICAL HISTORY Hx Surgeries: Yes Hx Coronary Artery Bypass Graft: Yes (in 2005) - ANESTHESIA Hx Anesthesia: Yes Hx Anesthesia Reactions: No Hx Malignant Hyperthermia: No Meds Allergies/Adverse Reactions: Allergies Allergy/AdvReac Type Severity Reaction Status Date / Time No Known Allergies Allergy Verified 03/03/17 14:32 - Medications Medications: Current Medications Albuterol/Ipratropium (Duoneb 3 Mg/0.5 Mg (3 Ml) Ud) 3 ml INH RQ6 [facility] Last Admin: 03/04/17 07:29 Dose: 3 ml Apixaban (Eliquis) 5 mg PO BID [facility] PRN Reason: Protocol Last Admin: 03/04/17 10:06 Dose: 5 mg Aspirin (Aspirin Chewable) 81 mg PO DAILY [facility] Last Admin: 03/04/17 10:08 Dose: 81 mg Atorvastatin Calcium (Lipitor) 40 mg PO DAILY [facility] Last Admin: 03/04/17 10:09 Dose: 40 mg Carvedilol (Coreg) 25 mg PO Q12H [facility] Last Admin: 03/04/17 10:07 Dose: 25 mg Folic Acid (Folic Acid) 1 mg PO DAILY [facility] Last Admin: 03/04/17 10:07 Dose: 1 mg Furosemide (Lasix) 40 mg PO DAILY [facility] Last Admin: 03/04/17 10:08 Dose: 40 mg Isosorbide Mononitrate (Imdur Er) 30 mg PO DAILY [facility] Last Admin: 03/04/17 10:07 Dose: 30 mg Multivitamins/Minerals (Therapeutic-M Tab) 1 tab PO DAILY [facility] Last Admin: 03/04/17 10:07 Dose: 1 tab Fluticasone/Salmeterol (Advair Diskus 250/50) 1 puff IH Q12H [facility] Last Admin: 03/04/17 10:08 Dose: 1 puff Valsartan (Diovan) 320 mg PO DAILY [facility] Last Admin: 03/04/17 10:05 Dose: 320 mg Physical Exam - Constitutional Appears: Non-toxic, No Acute Distress - Head Exam Head Exam: ATRAUMATIC, NORMAL INSPECTION, NORMOCEPHALIC - Eye Exam Eye Exam: EOMI, Normal appearance - ENT Exam ENT Exam: Mucous Membranes Moist, Normal Exam - Neck Exam Neck exam: Positive for: Full Rom, Normal Inspection - Respiratory Exam Respiratory Exam: NORMAL BREATHING PATTERN. absent: Chest Wall Tenderness Additional comments: Well healed midline scar over anterior chest wall - Cardiovascular Exam Cardiovascular Exam: REGULAR RHYTHM, +S1, +S2 - GI/Abdominal Exam GI & Abdominal Exam: Normal Bowel Sounds, Soft. absent: Distended, Firm, Guarding, Pulsatile Mass, Rebound, Rigid, Tenderness - Extremities Exam Extremities exam: Positive for: normal inspection. Negative for: pedal edema - Neurological Exam Neurological exam: Alert, CN II-XII Intact, Oriented x3 - Psychiatric Exam Psychiatric exam: Normal Affect, Normal Mood - Skin Skin Exam: Dry, Intact, Warm Additional comments: Large ecchymoses over right lower back/flank/extending into right lower quadrant Results - Vital Signs Recent Vital Signs: Last Vital Signs Temp 98.5 F 03/04/17 08:00 Pulse 70 03/04/17 10:07 Resp 20 03/04/17 08:00 BP 149/72 03/04/17 10:08 Pulse Ox 96 03/04/17 08:00 - Labs Result Diagrams: 03/04/17 05:15 03/04/17 05:15 Labs: Laboratory Results - last 24 hr 03/03/17 03/03/17 03/04/17 16:37 16:37 05:15 WBC 8.9 7.5 RBC 3.06 L 3.11 L Hgb 9.5 L 9.5 L Hct 28.5 L 28.8 L MCV 93.3 92.7 MCH 31.1 H 30.4 MCHC 33.3 32.8 L RDW 14.2 14.4 Plt Count 141 123 L MPV 9.4 8.6 Neut % (Auto) 75.0 73.2 Lymph % (Auto) 13.2 L 15.1 L [place] % (Auto) 9.9 10.2 H Eos % (Auto) 1.1 1.2 Baso % (Auto) 0.8 0.3 Neut # 6.7 5.5 Lymph # 1.2 1.1 [place] # 0.9 H 0.8 Eos # 0.1 0.1 Baso # 0.1 0.0 Sodium 135 Potassium 4.8 Chloride 101 Carbon Dioxide 27 Anion Gap 12 BUN 44 H Creatinine 1.8 H Est GFR ( Amer) 45 Est GFR (Non-Af Amer) 37 Random Glucose 128 H Calcium 8.0 L Total Bilirubin AST ALT Alkaline Phosphatase Troponin I 0.0320 NT-Pro-B Natriuret Pep 1840 H Total Protein Albumin Globulin Albumin/Globulin Ratio 03/04/17 05:15 WBC RBC Hgb Hct MCV MCH MCHC RDW Plt Count MPV Neut % (Auto) Lymph % (Auto) [place] % (Auto) Eos % (Auto) Baso % (Auto) Neut # Lymph # [place] # Eos # Baso # Sodium 137 Potassium 4.4 Chloride 100 Carbon Dioxide 30 Anion Gap 11 BUN 38 H Creatinine 1.5 Est GFR ( Amer) 55 Est GFR (Non-Af Amer) 46 Random Glucose 103 Calcium 8.1 L Total Bilirubin 0.8 AST 16 L ALT 47 Alkaline Phosphatase 96 Troponin I NT-Pro-B Natriuret Pep Total Protein 5.7 L Albumin 3.0 L Globulin 2.7 Albumin/Globulin Ratio 1.1 Assessment & Plan - Assessment and Plan (Free Text) Assessment: 76M w/PMH sig for HTN, afib consulted for 4cm infrarenal saccular aortic aneurysm- increased in size from 2014 (3.3cm) Plan: FU w/Dr. Hidalgo in 2 wks after discharge Please give Dr. Hidalgo's contact information upon discharge No surgical intervention at this time Thank you for this consult Please re-consult as needed OG attending Lien, PGY-1 - Date & Time Date: 03/04/17 Time: 11:51
--- NOTE | 2017-03-04 13:12 | CON ---
HISTORY OF PRESENT ILLNESS: Mr. Tsang is a 76-year-old male who was just discharged from [facility], then readmitted and referred for pulmonary followup. He indicated that he had some more abdominal pain and chest tightness and was brought back to the hospital. PAST MEDICAL HISTORY: He has a past medical history of atrial fibrillation, congestive heart failure, hyperlipidemia, hypertension, peripheral vascular disease, saccular infrarenal aneurysm since 2013. He was just discharged from the hospital after multiple admissions for chest pains and shortness of breath. He had a cardiac cath, which unrevealing for obstructive coronary artery disease. He was advised placement in a group home facility, but according to records, the daughter had taken him home, but he is unable to care for himself at home and has short term memory loss. PHYSICAL EXAMINATION: GENERAL: The patient is awake and alert. Does not comprehend exactly why he is back in the hospital. VITAL SIGNS: Remarkable for blood pressure of 118/68 with a pulse of 61, respiratory rate is 16. He is afebrile. O2 sat is 96% on nasal cannula oxygen. SKIN: Shows fair turgor. HEENT: Pupils equal and reactive to light and accommodation. Mouth shows fair hygiene. NECK: JVP flat. LUNGS: Fair aeration with audible rales and wheezing. HEART: Irregular rhythm (atrial fibrillation). ABDOMEN: Soft, nontender. No organomegaly. EXTREMITIES: 2+ pitting pedal edema. CENTRAL NERVOUS SYSTEM: The patient is alert, somewhat oriented to person and place, but not to time. No gross neuro deficits except for memory loss. LABORATORY DATA: Remarkable for chest x-ray shows stable cardiomegaly. No acute pulmonary infiltrates. WBC 7.5, hemoglobin 9.5, platelet count 123,000. Sodium 137, potassium 4.4, BUN of 38, creatinine 1.5, proBNP 1840. IMPRESSION: Acute exacerbation of chronic obstructive pulmonary disease, cardiac arrhythmias, congestive heart failure, poor memory. PLAN: To continue therapy as ordered, oxygenation as well as bronchodilators and diuretics. We will continue to follow with you. This patient definitely belongs in an assisted living or group home setting. Binh Blanca MD
--- NOTE | 2017-03-04 15:21 | CP.PCM.CON ---
History of Present Illness - History of Present Illness History of Present Illness: discussed with SAFETY ASSISTANT. multiple admissions. Patient likely requires more structured assistance. patient is likely not an ideal candidate for anticoagulation given falls. Past Patient History - Infectious Disease Hx of Infectious Diseases: None - Tetanus Immunizations Tetanus Immunization: Unknown - Past Medical History & Family History Past Medical History?: Yes - Past Social History Smoking Status: Former Smoker - CARDIAC Hx Cardiac Disorders: Yes Hx Atrial Fibrillation: Yes Hx Congestive Heart Failure: Yes Hx Hypercholesterolemia: Yes Hx Hypertension: Yes Hx Peripheral Edema: Yes - PULMONARY Hx Respiratory Disorders: Yes Hx Bronchitis: Yes Hx Chronic Obstructive Pulmonary Disease (COPD): Yes Hx Emphysema: Yes Hx Pneumonia: Yes - NEUROLOGICAL Hx Neurological Disorder: Yes HX Cerebrovascular Accident: Yes Hx Dementia: Yes - HEENT Hx HEENT Problems: No - RENAL Hx Chronic Kidney Disease: Yes (CKD) - ENDOCRINE/METABOLIC Hx Endocrine Disorders: No - HEMATOLOGICAL/ONCOLOGICAL Hx Blood Disorders: Yes Hx Anemia: Yes Hx Human Immunodeficiency Virus (HIV): No - INTEGUMENTARY Hx Dermatological Problems: No - MUSCULOSKELETAL/RHEUMATOLOGICAL Hx Musculoskeletal Disorders: Yes Hx Arthritis: Yes Hx Falls: No - GASTROINTESTINAL Hx Gastrointestinal Disorders: Yes Hx Gastritis: Yes - GENITOURINARY/GYNECOLOGICAL Hx Genitourinary Disorders: No - PSYCHIATRIC Hx Psychophysiologic Disorder: No Hx Substance Use: No - SURGICAL HISTORY Hx Surgeries: Yes Hx Coronary Artery Bypass Graft: Yes (in 2005) - ANESTHESIA Hx Anesthesia: Yes Hx Anesthesia Reactions: No Hx Malignant Hyperthermia: No Meds Allergies/Adverse Reactions: Allergies Allergy/AdvReac Type Severity Reaction Status Date / Time No Known Allergies Allergy Verified 03/03/17 14:32 - Medications Medications: Current Medications Albuterol/Ipratropium (Duoneb 3 Mg/0.5 Mg (3 Ml) Ud) [address] [facility] Last Admin: 03/04/17 13:09 Dose: 3 ml Apixaban (Eliquis) [address] [facility] PRN Reason: Protocol Last Admin: 03/04/17 10:06 Dose: 5 mg Aspirin (Aspirin Chewable) [address] [facility] Last Admin: 03/04/17 10:08 Dose: 81 mg Atorvastatin Calcium (Lipitor) [address] [facility] Last Admin: 03/04/17 10:09 Dose: 40 mg Carvedilol (Coreg) [address] [facility] Last Admin: 03/04/17 10:07 Dose: 25 mg Folic Acid (Folic Acid) [address] [facility] Last Admin: 03/04/17 10:07 Dose: 1 mg Furosemide (Lasix) [address] [facility] Last Admin: 03/04/17 10:08 Dose: 40 mg Isosorbide Mononitrate (Imdur Er) [address] [facility] Last Admin: 03/04/17 10:07 Dose: 30 mg Multivitamins/Minerals (Therapeutic-M Tab) 1 tab PO DAILY [facility] Last Admin: 03/04/17 10:07 Dose: 1 tab Fluticasone/Salmeterol (Advair Diskus 250/50) 1 puff IH Q12H [facility] Last Admin: 03/04/17 10:08 Dose: 1 puff Valsartan (Diovan) [address] [facility] Last Admin: 03/04/17 10:05 Dose: 320 mg Results - Vital Signs Recent Vital Signs: Last Vital Signs Temp 97.4 F L 03/04/17 12:26 Pulse 61 03/04/17 12:26 Resp 16 03/04/17 12:26 BP 118/68 03/04/17 12:26 Pulse Ox 96 03/04/17 12:26 - Labs Result Diagrams: 03/04/17 05:15 03/04/17 05:15 Labs: Laboratory Results - last 24 hr 03/03/17 03/03/17 03/04/17 16:37 16:37 05:15 WBC 8.9 7.5 RBC 3.06 L 3.11 L Hgb 9.5 L 9.5 L Hct 28.5 L 28.8 L MCV 93.3 92.7 MCH 31.1 H 30.4 MCHC 33.3 32.8 L RDW 14.2 14.4 Plt Count 141 123 L MPV 9.4 8.6 Neut % (Auto) 75.0 73.2 Lymph % (Auto) 13.2 L 15.1 L [place] % (Auto) 9.9 10.2 H Eos % (Auto) 1.1 1.2 Baso % (Auto) 0.8 0.3 Neut # 6.7 5.5 Lymph # 1.2 1.1 [place] # 0.9 H 0.8 Eos # 0.1 0.1 Baso # 0.1 0.0 Sodium 135 Potassium 4.8 Chloride 101 Carbon Dioxide 27 Anion Gap 12 BUN 44 H Creatinine 1.8 H Est GFR ( Amer) 45 Est GFR (Non-Af Amer) 37 Random Glucose 128 H Calcium 8.0 L Total Bilirubin AST ALT Alkaline Phosphatase Troponin I 0.0320 NT-Pro-B Natriuret Pep 1840 H Total Protein Albumin Globulin Albumin/Globulin Ratio 03/04/17 05:15 WBC RBC Hgb Hct MCV MCH MCHC RDW Plt Count MPV Neut % (Auto) Lymph % (Auto) [place] % (Auto) Eos % (Auto) Baso % (Auto) Neut # Lymph # [place] # Eos # Baso # Sodium 137 Potassium 4.4 Chloride 100 Carbon Dioxide 30 Anion Gap 11 BUN 38 H Creatinine 1.5 Est GFR ( Amer) 55 Est GFR (Non-Af Amer) 46 Random Glucose 103 Calcium 8.1 L Total Bilirubin 0.8 AST 16 L ALT 47 Alkaline Phosphatase 96 Troponin I NT-Pro-B Natriuret Pep Total Protein 5.7 L Albumin 3.0 L Globulin 2.7 Albumin/Globulin Ratio 1.1
--- NOTE | 2017-03-04 15:55 | CARD ---
APPROVED REPORT EKG Measurement Heart [id number] <Conclusion> Atrial fibrillation with slow ventricular response Nonspecific T wave abnormality Abnormal ECG
[2017-03-05] MEDS: Albuterol-Ipratrop 3 mg / 0.5 (3 ml) UD INH SCH ×4 (01:04→19:24)
[2017-03-05 06:39] LABS: HEMATOCRIT 27.8 % (35.0-51.0); MEAN CELL VOLUME 92.4 fl (80.0-94.0); MEAN CORPUSCULAR HEMOGLOBIN 30.2 pg (27.0-31.0); MEAN CORPUSCULAR HGB CONC 32.6 g/dL (33.0-37.0); RED CELL DISTRIBUTION WIDTH 14.8 % (11.5-14.5)
[2017-03-05 07:05] LABS: BLOOD UREA NITROGEN 30 mg/dl (9-20); CALCIUM 7.9 mg/dL (8.4-10.2); CARBON DIOXIDE 26 mmol/L (22-30); CHLORIDE 101 mmol/L (98-107); GFR AFRICAN-AMERICAN > 60; GLUCOSE,RANDOM 125 mg/dL (75-110); POTASSIUM 4.4 MMOL/L (3.6-5.0); SODIUM 134 mmol/l (132-148)
[2017-03-05] MEDS: Multivitamin With Minerals Tab PO SCH (08:54)
[2017-03-05] MEDS: Fluticasone-Salmeterol 250-50mcg Diskus IH SCH ×2 (10:09→21:51)
--- NOTE | 2017-03-05 12:09 | PN ---
DATE: 03/05/2017 SUBJECTIVE: Patient is seen and examined. Interim events noted. Consults noted and appreciated. Cardiology and Pulmonary consult and followup and intervention noted and appreciated. Patient remains in Progressive Care Unit on telemetry monitoring. Denies any specific complaint. No chest pain. No shortness of breath. No flank pain. PHYSICAL EXAMINATION: GENERAL: Patient is in no acute distress. VITAL SIGNS: Stable. HEART: S1 and S2, normal and regular. LUNGS: Good bilateral air entry. ABDOMEN: Soft, nontender. EXTREMITIES: No edema. No calf swelling. No tenderness. No acute ischemia. CENTRAL NERVOUS SYSTEM: Essentially unchanged. *------* improved. ASSESSMENT AND PLAN: Overall, patient is clinically stable. Telemetry monitoring does not show any significant arrhythmias. Available diagnostic data reviewed. Plan as ordered. Joel Caruso MD
--- NOTE | 2017-03-05 14:23 | CP.PCM.CON ---
History of Present Illness - History of Present Illness History of Present Illness: patient is a 76 year old male with a PMH HTN, CAD s/p CABG, COPD atrial fibrillation on Eliquis who had a fall at home. He denies chest pain or dyspnea. He did not have syncope. The paitnet has ecchymosis of the right side of the body. Review of Systems - Constitutional Constitutional: absent: As Per HPI, Anorexia, Chills, Daytime Sleepiness, Excessive Sweating, Fatigue, Fever, Frequent Falls, Headache, Increased Appetite , Lethargy, Malaise, Night Sweats, Snoring, Sleep Apnea, Weight Gain, Weight Loss, Weakness, Other - EENT Eyes: absent: As Per HPI, Blind Spots, Blurred Vision, Change in Vision, Decreased Night Vision, Diplopia, Discharge, Dry Eye, Exophthalmos, Floaters, Irritation, Itchy Eyes, Loss of Peripheral Vision, Pain, Photophobia, Requires Corrective Lenses, Sees Flashes, Spots in Vision, Tunnel Vision, Other Visual Disturbances, Loss of Vision, Other Ears: absent: As Per HPI, Decreased Hearing, Ear Discharge, Ear Pain, Tinnitus, Abnormal Hearing, Disequilibrium, Dizziness, Other Nose/Mouth/Throat: absent: As Per HPI, Epistaxis, Nasal Congestion, Nasal Discharge, Nasal Obstruction, Nasal Trauma, Nose Pain, Post Nasal Drip, Sinus Pain, Sinus Pressure, Bleeding Gums, Change in Voice, Dental Pain, Dry Mouth, Dysphagia, Halitosis, Hoarsness, Lip Swelling, Mouth Lesions, Mouth Pain, Odynophagia, Sore Throat, Throat Swelling, Tongue Swelling, Facial Pain, Neck Pain, Neck Mass, Other - Cardiovascular Cardiovascular: absent: As Per HPI, Acrocyanosis, Chest Pain, Chest Pain at Rest , Chest Pain with Activity, Claudication, Diaphoresis, Dyspnea, Dyspnea on Exertion, Edema, Irregular Heart Rhythm, Pain Radiating to Arm/Neck/Jaw, Leg Edema, Leg Ulcers, Lightheadedness, Orthopnea, Palpitations, Paroxysmal Nocturnal Dyspnea, Pedal Edema, Radiating Pain, Rapid Heart Rate, Slow Heart Rate, Syncope, Other - Respiratory Respiratory: absent: As Per HPI, Cough, Dyspnea, Hemoptysis, Dyspnea on Exertion , Wheezing, Snoring, Stridor, Pain on Inspiration, Chest Congestion, Excessive Mucous Production, Change in Mucous Color, Pain with Coughing, Other - Gastrointestinal Gastrointestinal: absent: As Per HPI, Abdominal Pain, Belching, Bloating, Change in Bowel Habits, Change in Stool Character, Coffee Ground Emesis, Constipation, Cramping, Diarrhea, Dyspepsia, Dysphagia, Early Satiety, Excessive Flatus, Fecal Incontinence, Heartburn, Hematemesis, Hematochezia, Loose Stools, Melena, Nausea, Odynophagia, Temesmus, Vomiting, Other - Genitourinary Genitourinary: absent: As Per HPI, Change in Urinary Stream, Difficulty Urinating, Dysuria, Flank Pain, Hematuria, Pyuria, Nocturia, Urinary Incontinence, Urinary Frequency, Urinary Hesitance, Urinary Urgency, Voiding Freq/Small Amts, Freq UTI, Hx Renal/Bladder Calculi, Hx /Renal Surgery, Bladder Distension, Other - Musculoskeletal Musculoskeletal: absent: As Per HPI, Abnormal Gait, Arthralgias, Atrophy, Back Pain, Deformity, Joint Swelling, Limited Range of Motion, Loss of Height, Muscle Cramps, Muscle Weakness, Myalgias, Neck Pain, Numbness, Radiating Pain into Limb, Stiffness, Tingling, Other - Integumentary Integumentary: absent: As Per HPI, Acne, Alopecia, Bleeding Lesions, Change in Hair, Change in Nails, Change in Pigmentation, Changing Lesions, Dry Skin, Erythema, Furuncle, Hirsutism, Lesions, New Lesions, Non-Healing Lesions, Photosensitivity, Pruritus, Rash, Skin Pain, Skin Ulcer, Sores, Striae, Swelling , Unusual Bruising, Wounds, Jaundice, Other - Neurological Neurological: absent: As Per HPI, Abnormal Gait, Abnormal Hearing, Abnormal Movements, Abnormal Speech, Behavioral Changes, Burning Sensations, Confusion, Convulsions, Disequilibrium, Dizziness, Numbness, Focal Weakness, Frequent Falls , Headaches, Lack of Coordination, Loss of Vision, Memory Loss, Paresthesias, Radicular Pain, Restless Legs, Sensory Deficit, Syncope, Tingling, Tremor, Vertigo, Weakness, Other Visual Disturbances, Other - Psychiatric Psychiatric: absent: As Per HPI, Abnormal Sleep Pattern, Anhedonia, Anxiety, Auditory Hallucinations, Behavioral Changes, Change in Appetite, Change in Libido, Confusion, Depression, Difficulty Concentrating, Hallucinations, Homicidal Ideation, Hopelessness, Irritability, Memory Loss, Mood Swings, Panic Attacks, Paranoia, Suicidal Ideation, Visual Hallucinations, Tactile Hallucinations, Other - Endocrine Endocrine: absent: As Per HPI, Change in Body Appearance, Change in Libido, Cold Intolorance, Deepening of Voice, Excessive Sweating, Fatigue, Flushing, Heat Intolorance, Increase in Ring/Shoe/Hat Size, Palpitations, Polydipsia, Polyphagia, Polyuria, Other - Hematologic/Lymphatic Hematologic: absent: As Per HPI, Easy Bleeding, Easy Bruising, Lymphadenopathy, Other Past Patient History - Infectious Disease Hx of Infectious Diseases: None - Tetanus Immunizations Tetanus Immunization: Unknown - Past Medical History & Family History Past Medical History?: Yes - Past Social History Smoking Status: Former Smoker - CARDIAC Hx Cardiac Disorders: Yes Hx Atrial Fibrillation: Yes Hx Congestive Heart Failure: Yes Hx Hypercholesterolemia: Yes Hx Hypertension: Yes Hx Peripheral Edema: Yes - PULMONARY Hx Respiratory Disorders: Yes Hx Bronchitis: Yes Hx Chronic Obstructive Pulmonary Disease (COPD): Yes Hx Emphysema: Yes Hx Pneumonia: Yes - NEUROLOGICAL Hx Neurological Disorder: Yes HX Cerebrovascular Accident: Yes Hx Dementia: Yes - HEENT Hx HEENT Problems: No - RENAL Hx Chronic Kidney Disease: Yes (CKD) - ENDOCRINE/METABOLIC Hx Endocrine Disorders: No - HEMATOLOGICAL/ONCOLOGICAL Hx Blood Disorders: Yes Hx Anemia: Yes Hx Human Immunodeficiency Virus (HIV): No - INTEGUMENTARY Hx Dermatological Problems: No - MUSCULOSKELETAL/RHEUMATOLOGICAL Hx Musculoskeletal Disorders: Yes Hx Arthritis: Yes Hx Falls: No - GASTROINTESTINAL Hx Gastrointestinal Disorders: Yes Hx Gastritis: Yes - GENITOURINARY/GYNECOLOGICAL Hx Genitourinary Disorders: No - PSYCHIATRIC Hx Psychophysiologic Disorder: No Hx Substance Use: No - SURGICAL HISTORY Hx Surgeries: Yes Hx Coronary Artery Bypass Graft: Yes (in 2005) - ANESTHESIA Hx Anesthesia: Yes Hx Anesthesia Reactions: No Hx Malignant Hyperthermia: No Meds Allergies/Adverse Reactions: Allergies Allergy/AdvReac Type Severity Reaction Status Date / Time No Known Allergies Allergy Verified 03/03/17 14:32 - Medications Medications: Current Medications Albuterol/Ipratropium (Duoneb 3 Mg/0.5 Mg (3 Ml) Ud) 3 ml INH RQ6 [facility] Last Admin: 03/05/17 13:57 Dose: 3 ml Apixaban (Eliquis) 2.5 mg PO BID [facility] PRN Reason: Protocol Last Admin: 03/05/17 10:10 Dose: 2.5 mg Aspirin (Aspirin Chewable) 81 mg PO DAILY [facility] Last Admin: 03/05/17 08:53 Dose: 81 mg Atorvastatin Calcium (Lipitor) 40 mg PO DAILY [facility] Last Admin: 03/05/17 08:55 Dose: 40 mg Carvedilol (Coreg) 25 mg PO Q12H [facility] Last Admin: 03/05/17 10:11 Dose: 25 mg Folic Acid (Folic Acid) 1 mg PO DAILY [facility] Last Admin: 03/05/17 08:54 Dose: 1 mg Furosemide (Lasix) 40 mg PO DAILY [facility] Last Admin: 03/05/17 08:54 Dose: 40 mg Isosorbide Mononitrate (Imdur Er) 30 mg PO DAILY [facility] Last Admin: 03/05/17 08:54 Dose: 30 mg Multivitamins/Minerals (Therapeutic-M Tab) 1 tab PO DAILY [facility] Last Admin: 03/05/17 08:54 Dose: 1 tab Fluticasone/Salmeterol (Advair Diskus 250/50) 1 puff IH Q12H [facility] Last Admin: 03/05/17 10:09 Dose: 1 puff Valsartan (Diovan) 320 mg PO DAILY [facility] Last Admin: 03/05/17 08:53 Dose: 320 mg Physical Exam - Constitutional Appears: Non-toxic - Head Exam Head Exam: NORMAL INSPECTION - Eye Exam Eye Exam: Normal appearance - ENT Exam ENT Exam: Mucous Membranes Moist - Neck Exam Neck exam: Positive for: Full Rom - Respiratory Exam Respiratory Exam: Decreased Breath Sounds - Cardiovascular Exam Cardiovascular Exam: Irregular Rhythm - GI/Abdominal Exam GI & Abdominal Exam: Normal Bowel Sounds - Rectal Exam Rectal Exam: Deferred - Extremities Exam Extremities exam: Positive for: pedal edema - Neurological Exam Neurological exam: Alert, Oriented x3 - Psychiatric Exam Psychiatric exam: Normal Affect - Skin Skin Exam: Normal Color Results - Vital Signs Recent Vital Signs: Last Vital Signs Temp 98.6 F 03/05/17 13:00 Pulse 72 03/05/17 13:00 Resp 18 03/05/17 13:00 BP 93/47 L 03/05/17 13:00 Pulse Ox 97 03/05/17 13:00 - Labs Result Diagrams: 03/05/17 05:30 03/05/17 05:30 Labs: Laboratory Results - last 24 hr 03/05/17 03/05/17 05:30 05:30 WBC 6.0 RBC 3.00 L Hgb 9.1 L Hct 27.8 L MCV 92.4 MCH 30.2 MCHC 32.6 L RDW 14.8 H Plt Count 111 L Sodium 134 Potassium 4.4 Chloride 101 Carbon Dioxide 26 Anion Gap 11 BUN 30 H Creatinine 1.2 Est GFR ( Amer) > 60 Est GFR (Non-Af Amer) 59 Random Glucose 125 H Calcium 7.9 L - EKG Data EKG Interpreted by: Myself Assessment & Plan (1) Atrial fibrillation Assessment and Plan: has been in anticoagulation due to atrial fibrillation. will consider discontinuing as the patient may not be ideal candidate due to falls. Status: Chronic Priority: High (2) CAD (coronary artery disease) Assessment and Plan: can give aspirin Status: Chronic (3) HTN (hypertension) Assessment and Plan: blood pressure control Status: Chronic
[2017-03-06] MEDS: Albuterol-Ipratrop 3 mg / 0.5 (3 ml) UD INH SCH ×4 (01:00→19:34)
[2017-03-06 08:09] LABS: HEMATOCRIT 27.8 % (35.0-51.0); MEAN CELL VOLUME 92.9 fl (80.0-94.0); MEAN CORPUSCULAR HEMOGLOBIN 30.8 pg (27.0-31.0); MEAN CORPUSCULAR HGB CONC 33.2 g/dL (33.0-37.0); RED CELL DISTRIBUTION WIDTH 14.3 % (11.5-14.5); WHITE BLOOD COUNT 5.6 K/uL (4.8-10.8)
[2017-03-06 09:06] LABS: POTASSIUM 4.5 MMOL/L (3.6-5.0)
[2017-03-06 09:07] LABS: BILIRUBIN,TOTAL 0.7 mg/dl (0.2-1.3); CALCIUM 7.7 mg/dL (8.4-10.2); TOTAL PROTEIN 5.5 G/DL (6.3-8.2)
[2017-03-06] MEDS: Fluticasone-Salmeterol 250-50mcg Diskus IH SCH ×2 (10:13→22:06)
[2017-03-06] MEDS: Multivitamin With Minerals Tab PO SCH (10:14)
--- NOTE | 2017-03-06 11:51 | CP.PCM.PN ---
Subjective - Date & Time of Evaluation Date of Evaluation: 03/06/17 Time of Evaluation: 11:51 - Subjective Subjective: SOB IMPROVING DENIES CHEST PAINS Objective - Vital Signs/Intake and Output Vital Signs (last 24 hours): Temp Pulse Resp BP Pulse Ox 97.6 F 57 L 20 122/57 L 100 03/06/17 08:16 03/06/17 08:16 03/06/17 08:16 03/06/17 10:14 03/06/17 08:16 - Medications Medications: Current Medications Albuterol/Ipratropium (Duoneb 3 Mg/0.5 Mg (3 Ml) Ud) 3 ml INH RQ6 [facility] Last Admin: 03/06/17 07:43 Dose: Not Given Apixaban (Eliquis) 2.5 mg PO BID [facility] PRN Reason: Protocol Last Admin: 03/06/17 10:14 Dose: 2.5 mg Aspirin (Aspirin Chewable) 81 mg PO DAILY [facility] Last Admin: 03/06/17 10:15 Dose: 81 mg Atorvastatin Calcium (Lipitor) 40 mg PO DAILY [facility] Last Admin: 03/06/17 10:15 Dose: 40 mg Carvedilol (Coreg) 25 mg PO Q12H [facility] Last Admin: 03/05/17 21:51 Dose: 25 mg Folic Acid (Folic Acid) 1 mg PO DAILY [facility] Last Admin: 03/06/17 10:14 Dose: 1 mg Furosemide (Lasix) 40 mg PO DAILY [facility] Last Admin: 03/06/17 10:14 Dose: 40 mg Isosorbide Mononitrate (Imdur Er) 30 mg PO DAILY [facility] Last Admin: 03/06/17 10:15 Dose: 30 mg Multivitamins/Minerals (Therapeutic-M Tab) 1 tab PO DAILY [facility] Last Admin: 03/06/17 10:14 Dose: 1 tab Fluticasone/Salmeterol (Advair Diskus 250/50) 1 puff IH Q12H [facility] Last Admin: 03/06/17 10:13 Dose: 1 puff Valsartan (Diovan) 320 mg PO DAILY [facility] Last Admin: 03/06/17 10:14 Dose: 320 mg - Labs Labs: 03/06/17 04:00 03/06/17 07:32 - Constitutional Appears: No Acute Distress - Head Exam Head Exam: ATRAUMATIC, NORMAL INSPECTION, NORMOCEPHALIC - Eye Exam Eye Exam: EOMI, Normal appearance, PERRL Pupil Exam: NORMAL ACCOMODATION, PERRL - ENT Exam ENT Exam: Mucous Membranes Moist, Normal Exam - Neck Exam Neck Exam: Full ROM, Normal Inspection. absent: Lymphadenopathy - Respiratory Exam Respiratory Exam: Decreased Breath Sounds, Prolonged Expiratory Phase, Rales, Wheezes, NORMAL BREATHING PATTERN - Cardiovascular Exam Cardiovascular Exam: REGULAR RHYTHM, +S1, +S2. absent: Murmur - GI/Abdominal Exam GI & Abdominal Exam: Soft, Normal Bowel Sounds. absent: Tenderness - Rectal Exam Rectal Exam: NORMAL INSPECTION - Extremities Exam Extremities Exam: Full ROM, Normal Capillary Refill, Normal Inspection, Pedal Edema. absent: Joint Swelling Additional comments: PEDAL EDEMA LESS - Back Exam Back Exam: NORMAL INSPECTION - Neurological Exam Neurological Exam: Alert, Awake, CN II-XII Intact, Normal Gait - Psychiatric Exam Psychiatric exam: Normal Affect, Normal Mood Additional comments: POOR SHORT TERM MEMORY - Skin Skin Exam: Dry, Intact, Normal Color, Warm Assessment and Plan - Assessment and Plan (Free Text) Assessment: CHF COPD POOR MEMORY NON-COMPLIANCE ATRIAL FIB Plan: CONTINUE SAME RX SUGGEST SENIOR LIVING PLACEMENT
[2017-03-07] MEDS: Albuterol-Ipratrop 3 mg / 0.5 (3 ml) UD INH SCH ×4 (01:02→19:27)
[2017-03-07] MEDS: Multivitamin With Minerals Tab PO SCH (09:04)
--- NOTE | 2017-03-07 11:46 | PN ---
DATE: 03/07/2017 SUBJECTIVE: The patient is seen and examined. Interim events noted. The patient remains in Progressive Care Unit on telemetry monitoring. The patient feels okay. Denies any specific complaint. No chest pain. No shortness of breath. PHYSICAL EXAMINATION GENERAL: The patient is in no acute distress. VITAL SIGNS: Stable. HEART: S1 and S2 normal, regular. LUNGS: Good bilateral air exchange. ABDOMEN: Soft and nontender. EXTREMITIES: No edema. No calf swelling. No tenderness. No acute ischemia. CENTRAL NERVOUS SYSTEM: Essentially unchanged. SKIN: Ecchymosis on the skin is essentially same. There is no increase in size. DIAGNOSTIC DATA: Available diagnostic data reviewed. Telemetry monitoring does not show significant arrhythmias. ASSESSMENT AND PLAN: Overall, the patient is clinically stable. Plan as ordered. Joel Caruso MD
[2017-03-07] MEDS: Fluticasone-Salmeterol 250-50mcg Diskus IH SCH ×2 (12:58→23:14)
[2017-03-08] MEDS: Albuterol-Ipratrop 3 mg / 0.5 (3 ml) UD INH SCH ×4 (01:13→19:43)
--- NOTE | 2017-03-08 08:58 | PN ---
DATE: 03/06/2017 SUBJECTIVE: The patient is seen and examined. Interim events noted. Consults noted and appreciated. Cardiology followup and intervention noted and appreciated. Patient remains in Progressive Care Unit on telemetry monitoring. Denies any specific complaint. No chest pain, no shortness of breath. PHYSICAL EXAMINATION: GENERAL: The patient is in no acute distress. VITAL SIGNS: Stable. HEART: S1 and S2, normal and regular. LUNGS: Good bilateral air entry. ABDOMEN: Soft, nontender. EXTREMITIES: No calf swelling. No tenderness. No acute ischemia. PHYSICAL DESIGN ENGINEER: is essentially unchanged and no new sign of bleeding. DIAGNOSTIC DATA: Telemetry monitoring does not reveal significant arrhythmia. ASSESSMENT AND PLAN: Overall, the patient's general medical condition is stable. Plan as ordered. Joel Caruso MD
--- NOTE | 2017-03-08 09:00 | CP.PCM.PN ---
Subjective - Date & Time of Evaluation Date of Evaluation: 03/08/17 Time of Evaluation: 09:00 - Subjective Subjective: POOR SHORT TERM MEMORY SOB IMPROVED NO CHEST PAINS Objective - Vital Signs/Intake and Output Vital Signs (last 24 hours): Temp Pulse Resp BP Pulse Ox 98.5 F 56 L 20 126/75 95 03/08/17 08:27 03/08/17 08:27 03/08/17 08:27 03/08/17 08:27 03/08/17 08:27 - Medications Medications: Current Medications Albuterol/Ipratropium (Duoneb 3 Mg/0.5 Mg (3 Ml) Ud) 3 ml INH RQ6 [facility] Last Admin: 03/08/17 07:58 Dose: Not Given Apixaban (Eliquis) 2.5 mg PO BID [facility] PRN Reason: Protocol Last Admin: 03/07/17 18:20 Dose: 2.5 mg Aspirin (Aspirin Chewable) 81 mg PO DAILY [facility] Last Admin: 03/07/17 09:05 Dose: 81 mg Atorvastatin Calcium (Lipitor) 40 mg PO DAILY [facility] Last Admin: 03/07/17 09:04 Dose: 40 mg Carvedilol (Coreg) 25 mg PO Q12H [facility] Last Admin: 03/07/17 23:15 Dose: 25 mg Folic Acid (Folic Acid) 1 mg PO DAILY [facility] Last Admin: 03/07/17 09:04 Dose: 1 mg Furosemide (Lasix) 40 mg PO DAILY [facility] Last Admin: 03/07/17 09:05 Dose: 40 mg Isosorbide Mononitrate (Imdur Er) 30 mg PO DAILY [facility] Last Admin: 03/07/17 09:04 Dose: 30 mg Multivitamins/Minerals (Therapeutic-M Tab) 1 tab PO DAILY [facility] Last Admin: 03/07/17 09:04 Dose: 1 tab Fluticasone/Salmeterol (Advair Diskus 250/50) 1 puff IH Q12H [facility] Last Admin: 03/07/17 23:14 Dose: 1 puff Valsartan (Diovan) 320 mg PO DAILY [facility] Last Admin: 03/07/17 09:05 Dose: 320 mg - Labs Labs: 03/06/17 04:00 03/06/17 07:32 - Constitutional Appears: No Acute Distress - Head Exam Head Exam: ATRAUMATIC, NORMAL INSPECTION, NORMOCEPHALIC - Eye Exam Eye Exam: EOMI, Normal appearance, PERRL Pupil Exam: NORMAL ACCOMODATION, PERRL - ENT Exam ENT Exam: Mucous Membranes Moist, Normal Exam - Neck Exam Neck Exam: Full ROM, Normal Inspection. absent: Lymphadenopathy - Respiratory Exam Respiratory Exam: Decreased Breath Sounds, Prolonged Expiratory Phase, NORMAL BREATHING PATTERN - Cardiovascular Exam Cardiovascular Exam: Irregular Rhythm, +S1, +S2. absent: Murmur - GI/Abdominal Exam GI & Abdominal Exam: Soft, Normal Bowel Sounds. absent: Tenderness - Rectal Exam Rectal Exam: NORMAL INSPECTION - Extremities Exam Extremities Exam: Full ROM, Normal Capillary Refill, Normal Inspection, Pedal Edema. absent: Joint Swelling - Back Exam Back Exam: NORMAL INSPECTION - Neurological Exam Neurological Exam: Alert, Awake, CN II-XII Intact, Normal Gait, Oriented x3 - Psychiatric Exam Psychiatric exam: Normal Affect, Normal Mood - Skin Skin Exam: Dry, Intact, Normal Color, Warm Assessment and Plan - Assessment and Plan (Free Text) Assessment: COPD CHF ATRIAL FIB POOR MEMORY Plan: CONTINUE PRESENT RX FOR POSSIBLE PLACEMENT
[2017-03-08] MEDS: Multivitamin With Minerals Tab PO SCH (09:21)
--- NOTE | 2017-03-08 10:51 | CP.PCM.PN ---
Subjective - Date & Time of Evaluation Date of Evaluation: 03/08/17 Time of Evaluation: 07:25 - Subjective Subjective: Patient seen and examined bedside with attending Dr flores.Patient denies chest pain, palpitation, SOB, new hematoma. No overnight events. Objective - Vital Signs/Intake and Output Vital Signs (last 24 hours): Temp Pulse Resp BP Pulse Ox 98.5 F 56 L 20 126/75 95 03/08/17 08:27 03/08/17 09:00 03/08/17 08:27 03/08/17 09:21 03/08/17 08:27 - Medications Medications: Current Medications Albuterol/Ipratropium (Duoneb 3 Mg/0.5 Mg (3 Ml) Ud) 3 ml INH RQ6 [facility] Last Admin: 03/08/17 07:58 Dose: Not Given Apixaban (Eliquis) 2.5 mg PO BID [facility] PRN Reason: Protocol Last Admin: 03/08/17 09:20 Dose: 2.5 mg Aspirin (Aspirin Chewable) 81 mg PO DAILY [facility] Last Admin: 03/08/17 09:19 Dose: 81 mg Atorvastatin Calcium (Lipitor) 40 mg PO DAILY [facility] Last Admin: 03/08/17 09:21 Dose: 40 mg Carvedilol (Coreg) 25 mg PO Q12H [facility] Last Admin: 03/07/17 23:15 Dose: 25 mg Folic Acid (Folic Acid) 1 mg PO DAILY [facility] Last Admin: 03/08/17 09:20 Dose: 1 mg Furosemide (Lasix) 40 mg PO DAILY [facility] Last Admin: 03/08/17 09:21 Dose: 40 mg Isosorbide Mononitrate (Imdur Er) 30 mg PO DAILY [facility] Last Admin: 03/08/17 09:20 Dose: 30 mg Multivitamins/Minerals (Therapeutic-M Tab) 1 tab PO DAILY [facility] Last Admin: 03/08/17 09:21 Dose: 1 tab Fluticasone/Salmeterol (Advair Diskus 250/50) 1 puff IH Q12H [facility] Last Admin: 03/07/17 23:14 Dose: 1 puff Valsartan (Diovan) 320 mg PO DAILY [facility] Last Admin: 03/08/17 09:19 Dose: 320 mg - Labs Labs: 03/06/17 04:00 03/06/17 07:32 - Constitutional Appears: Non-toxic, No Acute Distress - Head Exam Head Exam: ATRAUMATIC, NORMOCEPHALIC - Eye Exam Eye Exam: Normal appearance - Respiratory Exam Respiratory Exam: Clear to Ausculation Bilateral. absent: Rales, Wheezes - Cardiovascular Exam Cardiovascular Exam: Irregular Rhythm, +S1, +S2 - GI/Abdominal Exam GI & Abdominal Exam: Soft, Normal Bowel Sounds. absent: Tenderness Additional comments: Large hematoma right flank measured aprox 30 cm x 10 cm that does not cross the mid line of the abdomen - Extremities Exam Extremities Exam: Normal Inspection. absent: Pedal Edema - Neurological Exam Neurological Exam: Alert, Awake - Psychiatric Exam Psychiatric exam: Normal Affect, Normal Mood - Skin Additional comments: Large hematoma right flank measured aprox 30 cm x 10 cm that does not cross the mid line of the abdomen Assessment and Plan - Assessment and Plan (Free Text) Plan: Assessment/Plan 1) Right Flank hematoma -secondary to anticoagulation( eliquis) vs fall or trauma not reported by patient -Cardiology consult appreciated.pt considered to c/w aspirin outpatient for high risk of fall -CT abd: no intrabdominal or retroperitoneal bleeding 2) Abdominal aortic aneurysm CT abd: 4 cm saccular aneurysm vascular surgeon consulted. no intervention at this time (3) Systolic CHF continue same medications carvedidol,lasix Cardiology consult appreciated Echo on 02/10/17 showed EF 40-45 %, systolic function moderately impaired (4) COPD continue same medications duoneb Pulmonology consult appreciated -continue same medications (5) CAD (coronary artery disease) -stable s/p Cardiac cath at [facility] by Dr. Roberts. Cardiac consult appreciated (6) Atrial fibrillation with controlled ventricular response -controlled -on eliquis controlled (7) CKD III B -chronic (8) DVT prophylaxis on Eliquis
[2017-03-08] MEDS: Fluticasone-Salmeterol 250-50mcg Diskus IH SCH ×2 (10:55→22:55)
[2017-03-09] MEDS: Albuterol-Ipratrop 3 mg / 0.5 (3 ml) UD INH SCH ×3 (01:05→13:15)
--- NOTE | 2017-03-09 08:57 | CP.PCM.PN ---
Subjective - Date & Time of Evaluation Date of Evaluation: 03/09/17 Time of Evaluation: 07:35 - Subjective Subjective: Patient seen and examined bedside with attending Dr flores.Patient reports feeling better. right flank hematoma improving. he denies chest pain, palpitation, SOB, No overnight events. Objective - Vital Signs/Intake and Output Vital Signs (last 24 hours): Temp Pulse Resp BP Pulse Ox 97.9 F 66 18 120/67 96 03/09/17 08:00 03/09/17 08:00 03/09/17 08:00 03/09/17 08:00 03/09/17 08:00 Intake and Output: 03/09/17 03/09/17 06:59 18:59 Intake Total 1800 Output Total 1050 Balance 750 - Medications Medications: Current Medications Albuterol/Ipratropium (Duoneb 3 Mg/0.5 Mg (3 Ml) Ud) 3 ml INH RQ6 [facility] Last Admin: 03/09/17 07:57 Dose: 3 ml Aspirin (Aspirin Chewable) 81 mg PO DAILY [facility] Last Admin: 03/08/17 09:19 Dose: 81 mg Atorvastatin Calcium (Lipitor) 40 mg PO DAILY [facility] Last Admin: 03/08/17 09:21 Dose: 40 mg Carvedilol (Coreg) 25 mg PO Q12H [facility] Last Admin: 03/08/17 22:55 Dose: 25 mg Folic Acid (Folic Acid) 1 mg PO DAILY [facility] Last Admin: 03/08/17 09:20 Dose: 1 mg Furosemide (Lasix) 40 mg PO DAILY [facility] Last Admin: 03/08/17 09:21 Dose: 40 mg Isosorbide Mononitrate (Imdur Er) 30 mg PO DAILY [facility] Last Admin: 03/08/17 09:20 Dose: 30 mg Multivitamins/Minerals (Therapeutic-M Tab) 1 tab PO DAILY [facility] Last Admin: 03/08/17 09:21 Dose: 1 tab Fluticasone/Salmeterol (Advair Diskus 250/50) 1 puff IH Q12H [facility] Last Admin: 03/08/17 22:55 Dose: 1 puff Valsartan (Diovan) 320 mg PO DAILY [facility] Last Admin: 03/08/17 09:19 Dose: 320 mg - Labs Labs: 03/06/17 04:00 03/06/17 07:32 - Constitutional Appears: Non-toxic, No Acute Distress - Head Exam Head Exam: NORMOCEPHALIC - Eye Exam Eye Exam: Normal appearance - ENT Exam ENT Exam: Mucous Membranes Moist - Neck Exam Neck Exam: Normal Inspection - Cardiovascular Exam Cardiovascular Exam: Irregular Rhythm, +S1, +S2 - GI/Abdominal Exam GI & Abdominal Exam: Soft, Normal Bowel Sounds. absent: Tenderness Additional comments: Large hematoma right flank measured aprox 30 cm x 10 cm that does not cross the mid line of the abdomen - Extremities Exam Extremities Exam: Normal Inspection. absent: Pedal Edema - Neurological Exam Neurological Exam: Alert, Awake - Psychiatric Exam Psychiatric exam: Normal Mood - Skin Skin Exam: Intact Assessment and Plan - Assessment and Plan (Free Text) Plan: Assessment/Plan 1) Right Flank hematoma -secondary to anticoagulation( eliquis) vs fall or trauma not reported by patient -Cardiology consult appreciated.pt considered to c/w aspirin outpatient for high risk of fall -CT abd: no intrabdominal or retroperitoneal bleeding 2) Abdominal aortic aneurysm CT abd: 4 cm saccular aneurysm vascular surgeon consulted. no intervention at this time (3) Systolic CHF continue same medications carvedidol,lasix Cardiology consult appreciated Echo on 02/10/17 showed EF 40-45 %, systolic function moderately impaired (4) COPD continue same medications duoneb Pulmonology consult appreciated -continue same medications (5) CAD (coronary artery disease) -stable s/p Cardiac cath at [facility] by Dr. Roberts. Cardiac consult appreciated (6) Atrial fibrillation with controlled ventricular response -controlled -Audio/Visual Manager consult appreciated: suggests Aspirin (outpatient) instead of eliquis due to high risk of fall (7) CKD III B -chronic (8) DVT prophylaxis -scd due to thrombocytopenia
--- NOTE | 2017-03-09 09:01 | CP.PCM.PN ---
Subjective - Date & Time of Evaluation Date of Evaluation: 03/09/17 Time of Evaluation: 09:02 - Subjective Subjective: DENIES CHEST PAINS/SOB NO COUGH Objective - Vital Signs/Intake and Output Vital Signs (last 24 hours): Temp Pulse Resp BP Pulse Ox 97.9 F 66 18 120/67 96 03/09/17 08:00 03/09/17 08:00 03/09/17 08:00 03/09/17 08:00 03/09/17 08:00 Intake and Output: 03/09/17 03/09/17 06:59 18:59 Intake Total 1800 Output Total 1050 Balance 750 - Medications Medications: Current Medications Albuterol/Ipratropium (Duoneb 3 Mg/0.5 Mg (3 Ml) Ud) 3 ml INH RQ6 [facility] Last Admin: 03/09/17 07:57 Dose: 3 ml Aspirin (Aspirin Chewable) 81 mg PO DAILY [facility] Last Admin: 03/08/17 09:19 Dose: 81 mg Atorvastatin Calcium (Lipitor) 40 mg PO DAILY [facility] Last Admin: 03/08/17 09:21 Dose: 40 mg Carvedilol (Coreg) 25 mg PO Q12H [facility] Last Admin: 03/08/17 22:55 Dose: 25 mg Folic Acid (Folic Acid) 1 mg PO DAILY [facility] Last Admin: 03/08/17 09:20 Dose: 1 mg Furosemide (Lasix) 40 mg PO DAILY [facility] Last Admin: 03/08/17 09:21 Dose: 40 mg Isosorbide Mononitrate (Imdur Er) 30 mg PO DAILY [facility] Last Admin: 03/08/17 09:20 Dose: 30 mg Multivitamins/Minerals (Therapeutic-M Tab) 1 tab PO DAILY [facility] Last Admin: 03/08/17 09:21 Dose: 1 tab Fluticasone/Salmeterol (Advair Diskus 250/50) 1 puff IH Q12H [facility] Last Admin: 03/08/17 22:55 Dose: 1 puff Valsartan (Diovan) 320 mg PO DAILY [facility] Last Admin: 03/08/17 09:19 Dose: 320 mg - Labs Labs: 03/06/17 04:00 03/06/17 07:32 - Constitutional Appears: No Acute Distress - Head Exam Head Exam: ATRAUMATIC, NORMAL INSPECTION, NORMOCEPHALIC - Eye Exam Eye Exam: EOMI, Normal appearance, PERRL Pupil Exam: NORMAL ACCOMODATION, PERRL - ENT Exam ENT Exam: Mucous Membranes Moist, Normal Exam - Neck Exam Neck Exam: Full ROM, Normal Inspection. absent: Lymphadenopathy - Respiratory Exam Respiratory Exam: Prolonged Expiratory Phase, NORMAL BREATHING PATTERN - Cardiovascular Exam Cardiovascular Exam: REGULAR RHYTHM, +S1, +S2. absent: Murmur - GI/Abdominal Exam GI & Abdominal Exam: Soft, Normal Bowel Sounds. absent: Tenderness - Rectal Exam Rectal Exam: NORMAL INSPECTION - Extremities Exam Extremities Exam: Full ROM, Normal Capillary Refill, Normal Inspection, Pedal Edema. absent: Joint Swelling Additional comments: PEDAL EDEMA LESS - Back Exam Back Exam: NORMAL INSPECTION - Neurological Exam Neurological Exam: Alert, Awake, CN II-XII Intact, Normal Gait, Oriented x3 - Psychiatric Exam Psychiatric exam: Normal Affect, Normal Mood - Skin Skin Exam: Dry, Intact, Normal Color, Warm Assessment and Plan - Assessment and Plan (Free Text) Assessment: COPD IMPROVED CHF ATRIAL FIB POOR MEMORY Plan: CONTINUE RX ORDERED FOR POSSIBLE PLACEMENT
[2017-03-09] MEDS: Fluticasone-Salmeterol 250-50mcg Diskus IH SCH (10:07)
[2017-03-09] MEDS: Multivitamin With Minerals Tab PO SCH (10:12)
[2017-03-09 11:57] VITALS: O2SAT 96
--- NOTE | 2017-03-09 13:30 | PQF GENQUE ---
This form is a permanent part of the medical record 03/09/17 Dr. Caruso, Please specify the acuity of systolic heart failure in your progress notes. - Acute, - Chronic - Acute on Chronic - Other explanation ( please specify ) - Unable to determine Admitted with right flank hematoma and SOB. History of Systolic CHF.CXR stable cardiomegaly. Pro BNP 1840.Medication includes: Lasix IV x 1 in the ER then Lasix po daily, Coreg, Diovan. Clarification of your documentation is requested to better reflect the severity of illness and intensity of treatment of your patient. Indicators present [] Specify: [] [] Specify: [] [] Specify: [] [] Specify: [] Location in the medical record that reflects the above clinical findings: [] Treatment Provided: [] PHYSICIAN'S RESPONSE Based on your medical judgment of the clinical indicators outlined above please clarify the following: [] Practitioner response [] If unable to determine, please check the box, sign and date. Present On Admission (POA) Indicator: [] Present at the time of admission [] Not present at the time of admission [] Clinically Undetermined In responding to this query, please exercise your independent professional judgment. The fact that a question is asked does not imply that any particular answer is desired or expected. Thank you for your clarification on this documentation. If you have any questions please call:extension [phone] * Thank you, Courtney Gray RN [facility]
--- NOTE | 2017-03-09 15:21 | CP.PCM.PCO ---
Assessment/Plan - Assessment/Plan Assessment (Free Text): Pt stable, seen and cleared for d/c home by all consultants and Dr. Caruso. Per SW and CM, pt's daughter has made arrangements for 24 hrs care at home and for pt to be picked up today by [facility] ambulance at 4pm. Pt to resume same home meds.
--- NOTE | 2017-03-09 16:08 | CP.PCM.DIS ---
Provider - Provider Date of Admission: 03/03/17 17:58 Attending physician: Joel Caruso MD Time Spent in preparation of Discharge (in minutes): 30 Hospital Course - Lab Results Lab Results: Most Recent Lab Values WBC 5.6 K/uL (4.8-10.8) 03/06/17 04:00 RBC 3.00 Mil/uL (4.40-5.90) L 03/06/17 04:00 Hgb 9.2 g/dL (12.0-18.0) L 03/06/17 04:00 Hct 27.8 % (35.0-51.0) L 03/06/17 04:00 MCV 92.9 fl (80.0-94.0) 03/06/17 04:00 MCH 30.8 pg (27.0-31.0) 03/06/17 04:00 MCHC 33.2 g/dL (33.0-37.0) 03/06/17 04:00 RDW 14.3 % (11.5-14.5) 03/06/17 04:00 Plt Count 109 K/uL (130-400) L 03/06/17 04:00 MPV 8.6 fl (7.2-11.7) 03/04/17 05:15 Neut % (Auto) 73.2 % (50.0-75.0) 03/04/17 05:15 Lymph % (Auto) 15.1 % (20.0-40.0) L 03/04/17 05:15 [place] % (Auto) 10.2 % (0.0-10.0) H 03/04/17 05:15 Eos % (Auto) 1.2 % (0.0-4.0) 03/04/17 05:15 Baso % (Auto) 0.3 % (0.0-2.0) 03/04/17 05:15 Neut # 5.5 K/uL (1.8-7.0) 03/04/17 05:15 Lymph # 1.1 K/uL (1.0-4.3) 03/04/17 05:15 [place] # 0.8 K/uL (0.0-0.8) 03/04/17 05:15 Eos # 0.1 K/uL (0.0-0.7) 03/04/17 05:15 Baso # 0.0 K/uL (0.0-0.2) 03/04/17 05:15 Sodium 134 mmol/l (132-148) 03/06/17 07:32 Potassium 4.5 MMOL/L (3.6-5.0) 03/06/17 07:32 Chloride 102 mmol/L (98-107) 03/06/17 07:32 Carbon Dioxide 26 mmol/L (22-30) 03/06/17 07:32 Anion Gap 11 (10-20) 03/06/17 07:32 BUN 29 mg/dl (9-20) H 03/06/17 07:32 Creatinine 1.4 mg/dl (0.8-1.5) 03/06/17 07:32 Est GFR ( Amer) 60 03/06/17 07:32 Est GFR (Non-Af Amer) 49 03/06/17 07:32 Random Glucose 126 mg/dL (75-110) H 03/06/17 07:32 Calcium 7.7 mg/dL (8.4-10.2) L 03/06/17 07:32 Total Bilirubin 0.7 mg/dl (0.2-1.3) 03/06/17 07:32 AST 14 U/L (17-59) L 03/06/17 07:32 ALT 35 U/L (21-72) 03/06/17 07:32 Alkaline Phosphatase 94 U/L (38-126) 03/06/17 07:32 Troponin I 0.0320 ng/mL (0.00-0.120) 03/03/17 16:37 NT-Pro-B Natriuret Pep 1840 pg/ml (0-900) H 03/03/17 16:37 Total Protein 5.5 G/DL (6.3-8.2) L 03/06/17 07:32 Albumin 2.8 g/dL (3.5-5.0) L 03/06/17 07:32 Globulin 2.7 gm/dL (2.2-3.9) 03/06/17 07:32 Albumin/Globulin Ratio 1.0 (1.0-2.1) 03/06/17 07:32 - Hospital Course Hospital Course: 76 y/o male with past medical history of hypertension, hypercholesterolemia, a- fib( ncurrently on eliquis) , anemia, arthritis, CAD, COPD, CVA, dementia, chronic kidney presented to ED yesterday c/o an episode of shortness of breath and right flank hematoma.He reports that the SOBepisode lasted about 20 minutes and he took a nebulizer treatment at home before coming in to the ED. Patient states that he currently feels slightly better and denies chest pain and hotness of breath but states he did experience these symptoms prior to coming in to the ED. Patient denies any fall, syncope and reports the he does not remember when he noticed the hematoma and has not idea of the cause. Denies fever, cough, vomiting and diarrhea. Patient was recently discharged from Hospital for CHF exacerbation. As per Daughter she reports that his father is having multiples admission and states it could be related with panic attack episodes. She reports that not nurse care happen after he was discharged and today is when nurse went patient's home but he was already hospitalized. Patient during hospitalization in telemetry was evaluated for edi specialist. patient will c/w aspirin as outpatient due to high risk of fall and bleeding complications. patient hemodynamically stable. no complications during hospitalization. Patient cleared to be discharge. patient will have nurse care daily as scheduled during his last discharge Diagnosis 1) Right Flank hematoma -resolving -secondary to anticoagulation( eliquis) vs fall or trauma not reported by patient -Cardiology consult appreciated.pt considered to c/w aspirin outpatient for high risk of fall -CT abd: no intrabdominal or retroperitoneal bleeding 2) Abdominal aortic aneurysm CT abd: 4 cm saccular aneurysm vascular surgeon consulted. no intervention at this time (3) Systolic CHF continue same medications carvedidol,lasix Cardiology consult appreciated Echo on 02/10/17 showed EF 40-45 %, systolic function moderately impaired (4) COPD continue same medications duoneb Pulmonology consult appreciated -continue same medications (5) CAD (coronary artery disease) -stable s/p Cardiac cath at [facility] by Dr. Roberts. 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 absent: Rhonchi, Wheezes - Cardiovascular Exam Cardiovascular Exam: Irregular Rhythm, +S1, +S2 - GI/Abdominal Exam GI & Abdominal Exam: Normal Bowel Sounds. absent: Guarding, Rebound, Tenderness Additional comments: hematoma right flank measured aprox 30 cm x 10 cm that does not cross the mid line of the abdomen - Extremities Exam Extremities exam: normal inspection - Neurological Exam Neurological exam: Alert, Oriented x3 - Psychiatric Exam Psychiatric exam: Normal Affect, Normal Mood - Skin Additional comments: hematoma right flank measured aprox 30 cm x 10 cm that does not cross the mid line of the abdomen Discharge Plan - Follow Up Plan Condition: STABLE Disposition: HOME/ ROUTINE Additional Instructions: Please follow up with Dr. Hidalgo in his office in 2 weeks after discharge from hospital. Referrals: Zion Hidalgo MD [Medical Doctor] -
[2017-03-09 16:09] VITALS: BP 98/60; PULSE 65; RESP 20; TEMP 97.3
== END 2017-03-09 17:35 | disposition home health service (06) | DRG 604 ==
LOC: H.ER 14:28 → H.ERHOLD 17:58 → H.TEL 21:24
PROVIDERS: ADMIT Internal Medicine; ATTEND Internal Medicine
DX: S30.1XXA Contusion of abdominal wall, initial encounter (principal); I50.23 Acute on chronic systolic (congestive) heart failure; I48.2 Chronic atrial fibrillation; J44.1 Chronic obstructive pulmonary disease with (acute) exacerbation; I13.0 Hypertensive heart and chronic kidney disease with heart failure and stage 1 through stage 4 chronic kidney disease, or unspecified chronic kidney disease; E11.22 Type 2 diabetes mellitus with diabetic chronic kidney disease; N18.3 Chronic kidney disease, stage 3 (moderate); I71.4 Abdominal aortic aneurysm, without rupture; I25.10 Atherosclerotic heart disease of native coronary artery without angina pectoris; N28.1 Cyst of kidney, acquired; F03.90 Unspecified dementia, unspecified severity, without behavioral disturbance, psychotic disturbance, mood disturbance, and anxiety; E78.5 Hyperlipidemia, unspecified; W19.XXXA Unspecified fall, initial encounter; Z91.19 Patient's noncompliance with other medical treatment and regimen; Z79.01 Long term (current) use of anticoagulants; Z86.73 Personal history of transient ischemic attack (TIA), and cerebral infarction without residual deficits; Z87.01 Personal history of pneumonia (recurrent); Z95.1 Presence of aortocoronary bypass graft; Z87.891 Personal history of nicotine dependence; Y92.009 Unspecified place in unspecified non-institutional (private) residence as the place of occurrence of the external cause; D64.9 Anemia, unspecified; K29.70 Gastritis, unspecified, without bleeding; M19.90 Unspecified osteoarthritis, unspecified site

== ENCOUNTER 2017-11-17 11:32 | Inpatient (IN) | payer MEDICARE, BC ==
[2017-11-17 11:40] VITALS: BMI 30.1
--- NOTE | 2017-11-17 12:07 | ED PDOC ---
HPI: SOB/CHF/COPD History Per: Patient History/Exam Limitations: no limitations Onset/Duration Of Symptoms: Days Current Symptoms Are (Timing): Still Present Quality: Dull Current Respiratory Medications: None Associated Symptoms: Chest Pain, Ankle/Leg Swelling. denies: Fever, Chills, Sweating, Productive Cough <Karine Pascal - Last Filed: 11/17/17 14:34> <Vera Lucio - Last Filed: 11/22/17 22:49> Time Seen by Provider: 11/17/17 11:46 Chief Complaint (Nursing): Shortness Of Breath Additional Complaint(s): CC: SOB and chest pain HPI: 76 YO Male with PMHx of HTN, CHF (systolic) CAD s/p CABG, COPD, CKD, atrial fibrillation (on Eliquis) presents to [facility] ED for dyspnea and dull chest pain. Pt was brought in by ambulance, no respiratory treatment but given O2 via NC. Pt states that his dyspnea started suddenly last night and worsened this AM , dyspnea is associated with dull chest pain across his chest. Dyspnea not associated with any increase sputum production, tachycardia, diaphoresis. Chest pain is dull in nature, no radiation of the pain, not association with movement or inspiration. No recent immobilization. Pt is a poor historian. Hx obtained from pt and from chart review. Took meds this AM, per pt not on any inhalers at home. PMD: Dr. Kincaid PMHx: HTN, CAD s/p CABG, CHF, COPD, atrial fibrillation, CKD (as per chart review) SurgHx: CABG SHx: hx of smoking, social ETOH and denies illicit drug use FHx: denies hx of HTN, DM and Cancers Allergies: NKDA (Karine Pascal) Supervising Attending Note <Karine Pascal - Last Filed: 11/17/17 14:34> - Supervising Attending Note The documented physical exam was done by the: Physician Lead Man [employer] - Attestation: I have personally seen and examined this patient.: Yes I have fully participated in the care of the patient.: Yes I have reviewed all pertinent clinical information, including history, physical exam and plan: Yes <Vera Lucio - Last Filed: 11/22/17 22:49> - Notes: Notes:: Pt seen and evaluated by the resident and myself. Agree to admission for COPD exacerbation with treatments given in the ED and admission for further care. ( Vera Lucio) Past Medical History - Medical History PMH: Arthritis, Atrial Fibrillation, CAD, CHF, COPD, HTN, Hypercholesterolemia, Peripheral Edema, Pneumonia, Chronic Kidney Disease (CKD) Denies: HIV - Surgical History Surgical History: CABG (in 2005) - Family History Family History: States: Unknown Family Hx, CAD, Diabetes (father) - Immunization History Hx Tetanus Toxoid Vaccination: No Hx Influenza Vaccination: Yes Hx Pneumococcal Vaccination: No <Karine Pascal - Last Filed: 11/17/17 14:34> <Vera Lucio - Last Filed: 11/22/17 22:49> Vital Signs: Last Vital Signs Temp 97.8 F 11/22/17 19:27 Pulse 65 11/22/17 21:03 Resp 20 11/22/17 19:27 BP 141/62 11/22/17 21:03 Pulse Ox 95 11/22/17 19:27 - Home Medications Home Medications: Ambulatory Orders Medication Instructions Recorded Apixaban [Eliquis] 5 mg PO Q12 11/17/17 Losartan/Hydrochlorothiazide 1 tab PO DAILY 11/17/17 [Hyzaar 100-25 Tablet] amLODIPine [Norvasc] 10 mg PO DAILY 11/17/17 - Allergies Allergies/Adverse Reactions: Allergies Allergy/AdvReac Type Severity Reaction Status Date / Time No Known Allergies Allergy Verified 11/17/17 11:52 Review of Systems Constitutional: Negative for: Fever, Chills Cardiovascular: Positive for: Chest Pain (dull across the chest ). Negative for : Palpitations Respiratory: Positive for: Cough (mild ), Shortness of Breath. Negative for: Sputum Gastrointestinal: Negative for: Nausea, Vomiting, Abdominal Pain Genitourinary Male: Negative for: Dysuria, Frequency <Karine Pascal - Last Filed: 11/17/17 14:34> Physical Exam - Physical Exam Appears: Positive for: Uncomfortable (mild breathlessness while speaking ) Head Exam: Positive for: NORMAL INSPECTION Skin: Positive for: Normal Color. Negative for: Diaphoresis Cardiovascular/Chest: Positive for: Irregularly Irregular. Negative for: Chest Non Tender, JVD, Murmur Respiratory: Positive for: Wheezing (b/l on expiration ), Other (02 via NC). Negative for: Accessory Muscle Use, Crackles, Rales Gastrointestinal/Abdominal: Positive for: Normal Exam, Bowel Sounds, Soft. Negative for: Tenderness Back: Positive for: Normal Inspection Extremity: Positive for: Normal ROM, Pedal Edema (1+ b/l up to the mid-[place]). Negative for: Tenderness Neurologic/Psych: Positive for: Alert, Oriented <Karine Pascal - Last Filed: 11/17/17 14:34> - Laboratory Results Result Diagrams: 11/17/17 12:35 11/17/17 12:35 - ECG ECG: Positive for: Interpreted By Me ECG Rhythm: Positive for: Normal ST Segment, Atrial Fibrillation O2 Sat by Pulse Oximetry: 95 <Karine Pascal - Last Filed: 11/17/17 14:34> - Laboratory Results Result Diagrams: 11/22/17 04:20 11/22/17 04:20 <Vera Lucio - Last Filed: 11/22/17 22:49> - Progress ED Course And Treament: 76 YO male with multiple co-morbidities with dyspnea and chest pain EKG a fib with no acute ST changes with rate of 68 -cbc, bmp, coags -trops, pro-bnp -CXR -duonab x 3 -solumedrol 13:40-pt seen and reevaluated. States that he feels much better after breathing tx. Blood work reviewed with pt, sig for elevated pro-bnp, CXR read my me looks congested, BALTA. will give 1x 500mg Azithromycin for COPD and 1x Lasix treatment Spoke to admitting attending Dr. Caruso, will admit pt for COPD and CHF exacerbation. Plan discussed with pt and son, Agrees with plan. (Karine Pascal) Disposition - Patient ED Disposition Is Patient to be Admitted: Yes - Disposition Disposition Time: 14:38 <Karine Pascal - Last Filed: 11/17/17 14:34> <Vera Lucio - Last Filed: 11/22/17 22:49> - Clinical Impression Clinical Impression: CHF exacerbation, COPD exacerbation - Disposition Condition: FAIR
[2017-11-17] MEDS ORDERED: Albuterol-Ipratrop 3 mg / 0.5 (3 ml) UD INH STA (12:22)
[2017-11-17] MEDS ORDERED: Albuterol-Ipratrop 3 mg / 0.5 (3 ml) UD ONE (12:30)
[2017-11-17 12:48] LABS: BASO # 0.1 K/uL (0.0-0.2); BASO % 0.9 % (0.0-2.0); EOS # 0.2 K/uL (0.0-0.7); EOS % 3.4 % (0.0-4.0); HEMOGLOBIN 10.5 g/dL (12.0-18.0); LYMPH # 1.2 K/uL (1.0-4.3); LYMPH % 16.6 % (20.0-40.0); MEAN CELL VOLUME 92.2 fl (80.0-94.0); MEAN CORPUSCULAR HGB CONC 34.8 g/dL (33.0-37.0); MEAN PLATELET VOLUME 8.9 fl (7.2-11.7); MONO # 0.9 K/uL (0.0-0.8); MONO % 12.4 % (0.0-10.0); NEUT # 4.7 K/uL (1.8-7.0); NEUT % 66.7 % (50.0-75.0); NRBC % 0.1 % (0.0-0.0); RBC 3.28 Mil/uL (4.40-5.90); RED CELL DISTRIBUTION WIDTH 14.1 % (11.5-14.5)
[2017-11-17 12:53] LABS: INR 1.1; PROTHROMBIN TIME 12.1 Seconds (9.8-13.1)
[2017-11-17 12:56] LABS: PARTIAL THROMBOPLASTIN TIME 33.9 Seconds (25.6-37.1)
[2017-11-17 13:00] LABS: ALB/GLOB RATIO 1.5 (1.0-2.1); ALBUMIN 3.7 g/dL (3.5-5.0); CALCIUM 8.4 mg/dL (8.4-10.2)
[2017-11-17 13:12] LABS: TROPONIN I 0.015 ng/mL (0.00-0.120)
[2017-11-17] MEDS ORDERED: Azithromycin 500 MG in Sodium Chloride 0.9% 250 ML IVPB STA (13:52)
[2017-11-17] MEDS ORDERED: Azithromycin 500 MG IV IVPB ONE (14:00)
--- NOTE | 2017-11-17 15:09 | CP.PCM.HP ---
<Kvng Emmanuel - Last Filed: 11/18/17 09:35> History of Present Illness - History of Present Illness History of Present Illness: Pt was seen and evaluated with Dr. Caruso Mr. Tsang is a 76 yo M with pmhx of htn, systolic chf, cad s/p cabg, copd, ckd, and chronic afib presented to ED with dyspnea and dull chest discomfort. dyspnea: started last night while watching tv. he denies prior strenuous activity, cough, sputum production, use of inhaler to alleviate symptoms, travel , sick contacts or recent URTI. Chest discomfort: L sided, dull, 5/10. not exacerbated by exertion. Not associated with movement or deep breaths. he did not take medication to alleviate the discomfort. Denies nausea, vomiting or diaphoresis. 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 Kincaid with elevated bp and medications were updated surg: cabg fhx: cm and laryngel cancer soc: denies current smoking, alcohol, illicit drugs NKDA Present on Admission - Present on Admission Any Indicators Present on Admission: No History of Uncontrolled Diabetes: No Urinary Catheter: No Review of Systems - Constitutional Constitutional: As Per HPI - Cardiovascular Cardiovascular: Chest Pain. absent: Diaphoresis - Respiratory Respiratory: Dyspnea - Gastrointestinal Gastrointestinal: absent: Abdominal Pain - Neurological Neurological: absent: Abnormal Gait Past Patient History - Infectious Disease Hx of Infectious Diseases: None - Tetanus Immunizations Tetanus Immunization: Unknown - Past Medical History & Family History Past Medical History?: Yes - Past Social History Smoking Status: Former Smoker Chewing Tobacco Use: No Cigar Use: No Alcohol: None Drugs: Denies Home Situation {Lives}: Alone (Pt states able to perform ADLs) - CARDIAC Hx Atrial Fibrillation: Yes Hx Congestive Heart Failure: Yes Hx Hypercholesterolemia: Yes Hx Hypertension: Yes Hx Peripheral Edema: Yes - PULMONARY Hx Chronic Obstructive Pulmonary Disease (COPD): Yes Hx Pneumonia: Yes - NEUROLOGICAL Hx Dementia: Yes - HEENT Hx HEENT Problems: No - RENAL Hx Chronic Kidney Disease: Yes (CKD) - ENDOCRINE/METABOLIC Hx Endocrine Disorders: No - HEMATOLOGICAL/ONCOLOGICAL Hx Human Immunodeficiency Virus (HIV): No - INTEGUMENTARY Hx Dermatological Problems: No - MUSCULOSKELETAL/RHEUMATOLOGICAL Hx Arthritis: Yes - GASTROINTESTINAL Hx Gastritis: Yes - GENITOURINARY/GYNECOLOGICAL Hx Genitourinary Disorders: No - PSYCHIATRIC Hx Psychophysiologic Disorder: No Hx Substance Use: No - SURGICAL HISTORY Hx Coronary Artery Bypass Graft: Yes (in 2005) - ANESTHESIA Hx Anesthesia: Yes Hx Anesthesia Reactions: No Hx Malignant Hyperthermia: No Meds Allergies/Adverse Reactions: Allergies Allergy/AdvReac Type Severity Reaction Status Date / Time No Known Allergies Allergy Verified 11/17/17 11:52 Physical Exam - Constitutional Appears: Well, No Acute Distress - Eye Exam Eye Exam: EOMI - Respiratory Exam Respiratory Exam: Clear to Auscultation Bilateral, NORMAL BREATHING PATTERN. absent: Wheezes - Cardiovascular Exam Cardiovascular Exam: Irregular Rhythm, +S1, +S2 - GI/Abdominal Exam GI & Abdominal Exam: Normal Bowel Sounds, Soft. absent: Tenderness - Extremities Exam Extremities exam: Negative for: calf tenderness - Neurological Exam Neurological exam: Alert, CN II-XII Intact - Psychiatric Exam Psychiatric exam: Normal Affect, Normal Mood Results - Vital Signs Recent Vital Signs: Last Vital Signs Temp 99 F 11/17/17 11:40 Pulse 58 L 11/17/17 11:40 Resp 19 11/17/17 11:40 BP 132/60 11/17/17 14:13 Pulse Ox 95 11/17/17 14:38 - Labs Result Diagrams: 11/18/17 04:25 11/18/17 04:25 Labs: Laboratory Results - last 24 hr 11/17/17 11/17/17 11/17/17 12:35 12:35 12:35 WBC 7.0 RBC 3.28 L Hgb 10.5 L Hct 30.3 L MCV 92.2 MCH 32.0 H MCHC 34.8 RDW 14.1 Plt Count 163 MPV 8.9 Neut % (Auto) 66.7 Lymph % (Auto) 16.6 L [place] % (Auto) 12.4 H Eos % (Auto) 3.4 Baso % (Auto) 0.9 Neut # (Auto) 4.7 Lymph # (Auto) 1.2 [place] # (Auto) 0.9 H Eos # (Auto) 0.2 Baso # (Auto) 0.1 PT 12.1 INR 1.1 APTT 33.9 Sodium 137 Potassium 4.6 Chloride 102 Carbon Dioxide 25 Anion Gap 15 BUN 44 H Creatinine 2.0 H Est GFR ( Amer) 40 Est GFR (Non-Af Amer) 33 Random Glucose 142 H Calcium 8.4 Total Bilirubin 1.0 AST 26 ALT 33 Alkaline Phosphatase 80 Troponin I 0.0150 NT-Pro-B Natriuret Pep 1530 H Total Protein 6.1 L Albumin 3.7 Globulin 2.4 Albumin/Globulin Ratio 1.5 Assessment & Plan (1) CHF exacerbation Status: Acute (2) COPD exacerbation Status: Acute Priority: High (3) CKD (chronic kidney disease) Status: Acute (4) CAD (coronary artery disease) Status: Chronic - Assessment and Plan (Free Text) Plan: Continue with current treatment plan as ordered Cardiology consult: Dr. Kincaid Continue home meds duonebs heart healthy diet ambulation as tolerated case dw Dr. Shady Emmanuel MD PGY2 <Joel Caruso - Last Filed: 11/18/17 13:54> Results - Vital Signs Recent Vital Signs: Last Vital Signs Temp 97.4 F L 11/18/17 12:00 Pulse 61 11/18/17 12:00 Resp 20 11/18/17 12:00 BP 108/58 L 11/18/17 12:00 Pulse Ox 99 11/18/17 12:00 - Labs Result Diagrams: 11/18/17 04:25 11/18/17 04:25 Labs: Laboratory Results - last 24 hr 11/18/17 11/18/17 04:25 04:25 WBC 8.6 RBC 3.49 L Hgb 10.9 L Hct 32.5 L MCV 93.1 MCH 31.1 H MCHC 33.4 RDW 14.2 Plt Count 153 Sodium 136 Potassium 4.3 Chloride 99 Carbon Dioxide 26 Anion Gap 15 BUN 52 H Creatinine 2.0 H Est GFR ( Amer) 40 Est GFR (Non-Af Amer) 33 Random Glucose 208 H Calcium 8.6 Total Bilirubin 0.8 AST 23 ALT 29 Alkaline Phosphatase 74 Total Protein 6.4 Albumin 3.9 Globulin 2.5 Albumin/Globulin Ratio 1.5 Assessment & Plan - Assessment and Plan (Free Text) Plan: Patient was personally seen and examined by me in rounds with residents. Available labs and diagnostic data reviewed. Case, Patient's condition and management plan discussed with residents in rounds. Agree with resident's progress note. Plan: As ordered.
--- NOTE | 2017-11-17 16:13 | RAD ---
Date of service: 11/17/2017 HISTORY: possible admission COMPARISON: Chest radiographs 03/03/2017 FINDINGS: LUNGS: No active pulmonary disease. PLEURA: No significant pleural effusion identified, no pneumothorax apparent. CARDIOVASCULAR: Mild stable cardiomegaly peer no pulmonary vascular congestion. OSSEOUS STRUCTURES: Sternotomy wires reiterated. VISUALIZED UPPER ABDOMEN: Normal. OTHER FINDINGS: None. IMPRESSION: No definite acute cardiopulmonary ease. Study is underpenetrated. Stable cardiomegaly.
--- NOTE | 2017-11-17 17:12 | CP.PCM.CON ---
History of Present Illness - History of Present Illness History of Present Illness: I was asked to see patient by Dr Caruso. Patient is a 76 year old male with PMH HTN, CAD s/p CABG, chronic atrial fibrillation who presents with dyspnea. The patient was seen in the office yeaterday, and was severely hypertensive. He has not routinely been compliant with his medications. He was started on Losartan HCT 100/25, and amlodipine 10 mg daily. He was previously on Coreg. Today he felt dsypneic and presented to the hospital. He was seen in the ER. He denies chest pain Review of Systems - Constitutional Constitutional: absent: As Per HPI, Anorexia, Chills, Daytime Sleepiness, Excessive Sweating, Fatigue, Fever, Frequent Falls, Headache, Increased Appetite , Lethargy, Malaise, Night Sweats, Snoring, Sleep Apnea, Weight Gain, Weight Loss, Weakness, Other - EENT Eyes: absent: As Per HPI, Blind Spots, Blurred Vision, Change in Vision, Decreased Night Vision, Diplopia, Discharge, Dry Eye, Exophthalmos, Floaters, Irritation, Itchy Eyes, Loss of Peripheral Vision, Pain, Photophobia, Requires Corrective Lenses, Sees Flashes, Spots in Vision, Tunnel Vision, Other Visual Disturbances, Loss of Vision, Other Ears: absent: As Per HPI, Decreased Hearing, Ear Discharge, Ear Pain, Tinnitus, Abnormal Hearing, Disequilibrium, Dizziness, Other Nose/Mouth/Throat: absent: As Per HPI, Epistaxis, Nasal Congestion, Nasal Discharge, Nasal Obstruction, Nasal Trauma, Nose Pain, Post Nasal Drip, Sinus Pain, Sinus Pressure, Bleeding Gums, Change in Voice, Dental Pain, Dry Mouth, Dysphagia, Halitosis, Hoarsness, Lip Swelling, Mouth Lesions, Mouth Pain, Odynophagia, Sore Throat, Throat Swelling, Tongue Swelling, Facial Pain, Neck Pain, Neck Mass, Other - Cardiovascular Cardiovascular: absent: As Per HPI, Acrocyanosis, Chest Pain, Chest Pain at Rest , Chest Pain with Activity, Claudication, Diaphoresis, Dyspnea, Dyspnea on Exertion, Edema, Irregular Heart Rhythm, Pain Radiating to Arm/Neck/Jaw, Leg Edema, Leg Ulcers, Lightheadedness, Orthopnea, Palpitations, Paroxysmal Nocturnal Dyspnea, Pedal Edema, Radiating Pain, Rapid Heart Rate, Slow Heart Rate, Syncope, Other - Respiratory Respiratory: Wheezing - Gastrointestinal Gastrointestinal: absent: As Per HPI, Abdominal Pain, Belching, Bloating, Change in Bowel Habits, Change in Stool Character, Coffee Ground Emesis, Constipation, Cramping, Diarrhea, Dyspepsia, Dysphagia, Early Satiety, Excessive Flatus, Fecal Incontinence, Heartburn, Hematemesis, Hematochezia, Loose Stools, Melena, Nausea, Odynophagia, Temesmus, Vomiting, Other - Genitourinary Genitourinary: absent: As Per HPI, Change in Urinary Stream, Difficulty Urinating, Dysuria, Flank Pain, Hematuria, Pyuria, Nocturia, Urinary Incontinence, Urinary Frequency, Urinary Hesitance, Urinary Urgency, Voiding Freq/Small Amts, Freq UTI, Hx Renal/Bladder Calculi, Hx /Renal Surgery, Bladder Distension, Other - Musculoskeletal Musculoskeletal: absent: As Per HPI, Abnormal Gait, Arthralgias, Atrophy, Back Pain, Deformity, Joint Swelling, Limited Range of Motion, Loss of Height, Muscle Cramps, Muscle Weakness, Myalgias, Neck Pain, Numbness, Radiating Pain into Limb, Stiffness, Tingling, Other - Integumentary Integumentary: absent: As Per HPI, Acne, Alopecia, Bleeding Lesions, Change in Hair, Change in Nails, Change in Pigmentation, Changing Lesions, Dry Skin, Erythema, Furuncle, Hirsutism, Lesions, New Lesions, Non-Healing Lesions, Photosensitivity, Pruritus, Rash, Skin Pain, Skin Ulcer, Sores, Striae, Swelling , Unusual Bruising, Wounds, Jaundice, Other - Neurological Neurological: absent: As Per HPI, Abnormal Gait, Abnormal Hearing, Abnormal Movements, Abnormal Speech, Behavioral Changes, Burning Sensations, Confusion, Convulsions, Disequilibrium, Dizziness, Numbness, Focal Weakness, Frequent Falls , Headaches, Lack of Coordination, Loss of Vision, Memory Loss, Paresthesias, Radicular Pain, Restless Legs, Sensory Deficit, Syncope, Tingling, Tremor, Vertigo, Weakness, Other Visual Disturbances, Other - Psychiatric Psychiatric: absent: As Per HPI, Abnormal Sleep Pattern, Anhedonia, Anxiety, Auditory Hallucinations, Behavioral Changes, Change in Appetite, Change in Libido, Confusion, Depression, Difficulty Concentrating, Hallucinations, Homicidal Ideation, Hopelessness, Irritability, Memory Loss, Mood Swings, Panic Attacks, Paranoia, Suicidal Ideation, Visual Hallucinations, Tactile Hallucinations, Other - Endocrine Endocrine: absent: As Per HPI, Change in Body Appearance, Change in Libido, Cold Intolorance, Deepening of Voice, Excessive Sweating, Fatigue, Flushing, Heat Intolorance, Increase in Ring/Shoe/Hat Size, Palpitations, Polydipsia, Polyphagia, Polyuria, Other - Hematologic/Lymphatic Hematologic: absent: As Per HPI, Easy Bleeding, Easy Bruising, Lymphadenopathy, Other Past Patient History - Infectious Disease Hx of Infectious Diseases: None - Tetanus Immunizations Tetanus Immunization: Unknown - Past Medical History & Family History Past Medical History?: Yes - Past Social History Smoking Status: Former Smoker - CARDIAC Hx Atrial Fibrillation: Yes Hx Congestive Heart Failure: Yes Hx Hypercholesterolemia: Yes Hx Hypertension: Yes Hx Peripheral Edema: Yes - PULMONARY Hx Chronic Obstructive Pulmonary Disease (COPD): Yes Hx Pneumonia: Yes - NEUROLOGICAL Hx Dementia: Yes - HEENT Hx HEENT Problems: No - RENAL Hx Chronic Kidney Disease: Yes (CKD) - ENDOCRINE/METABOLIC Hx Endocrine Disorders: No - HEMATOLOGICAL/ONCOLOGICAL Hx Human Immunodeficiency Virus (HIV): No - INTEGUMENTARY Hx Dermatological Problems: No - MUSCULOSKELETAL/RHEUMATOLOGICAL Hx Arthritis: Yes - GASTROINTESTINAL Hx Gastritis: Yes - GENITOURINARY/GYNECOLOGICAL Hx Genitourinary Disorders: No - PSYCHIATRIC Hx Psychophysiologic Disorder: No Hx Substance Use: No - SURGICAL HISTORY Hx Coronary Artery Bypass Graft: Yes (in 2005) - ANESTHESIA Hx Anesthesia: Yes Hx Anesthesia Reactions: No Hx Malignant Hyperthermia: No Meds Allergies/Adverse Reactions: Allergies Allergy/AdvReac Type Severity Reaction Status Date / Time No Known Allergies Allergy Verified 11/17/17 11:52 - Medications Medications: Current Medications Albuterol/Ipratropium (Duoneb 3 Mg/0.5 Mg (3 Ml) Ud) 3 ml INH RQID ARNALDO Amlodipine Besylate (Norvasc) 10 mg PO DAILY [facility] Aspirin (Ecotrin) 81 mg PO DAILY [facility] Atorvastatin Calcium (Lipitor) 40 mg PO DAILY [facility] Carvedilol (Coreg) 25 mg PO Q12 [facility] Enoxaparin Sodium (Lovenox) 40 mg SC DAILY [facility] PRN Reason: Protocol Folic Acid (Folic Acid) 1 mg PO DAILY [facility] Furosemide (Lasix) 40 mg IVP BID [facility] HCTZ/Losartan Potassium (Hyzaar 12.5 Mg-50 Mg) 2 tab PO DAILY [facility] Isosorbide Mononitrate (Imdur Er) 30 mg PO DAILY ARNALDO Physical Exam - Constitutional Appears: Non-toxic - Head Exam Head Exam: NORMAL INSPECTION - Eye Exam Eye Exam: Normal appearance - ENT Exam ENT Exam: Mucous Membranes Moist - Neck Exam Neck exam: Positive for: Full Rom - Respiratory Exam Respiratory Exam: Decreased Breath Sounds - Cardiovascular Exam Cardiovascular Exam: Irregular Rhythm - GI/Abdominal Exam GI & Abdominal Exam: Normal Bowel Sounds - Rectal Exam Rectal Exam: Deferred - Extremities Exam Extremities exam: Positive for: pedal edema - Back Exam Back exam: NORMAL INSPECTION - Neurological Exam Neurological exam: Alert, Oriented x3 - Psychiatric Exam Psychiatric exam: Normal Affect - Skin Skin Exam: Normal Color Results - Vital Signs Recent Vital Signs: Last Vital Signs Temp 98.3 F 11/17/17 17:07 Pulse 54 L 11/17/17 17:07 Resp 20 11/17/17 17:07 BP 138/69 11/17/17 17:07 Pulse Ox 95 11/17/17 17:07 - Labs Result Diagrams: 11/17/17 12:35 11/17/17 12:35 Labs: Laboratory Results - last 24 hr 11/17/17 11/17/17 11/17/17 12:35 12:35 12:35 WBC 7.0 RBC 3.28 L Hgb 10.5 L Hct 30.3 L MCV 92.2 MCH 32.0 H MCHC 34.8 RDW 14.1 Plt Count 163 MPV 8.9 Neut % (Auto) 66.7 Lymph % (Auto) 16.6 L [place] % (Auto) 12.4 H Eos % (Auto) 3.4 Baso % (Auto) 0.9 Neut # (Auto) 4.7 Lymph # (Auto) 1.2 [place] # (Auto) 0.9 H Eos # (Auto) 0.2 Baso # (Auto) 0.1 PT 12.1 INR 1.1 APTT 33.9 Sodium 137 Potassium 4.6 Chloride 102 Carbon Dioxide 25 Anion Gap 15 BUN 44 H Creatinine 2.0 H Est GFR ( Amer) 40 Est GFR (Non-Af Amer) 33 Random Glucose 142 H Calcium 8.4 Total Bilirubin 1.0 AST 26 ALT 33 Alkaline Phosphatase 80 Troponin I 0.0150 NT-Pro-B Natriuret Pep 1530 H Total Protein 6.1 L Albumin 3.7 Globulin 2.4 Albumin/Globulin Ratio 1.5 - EKG Data EKG Interpreted by: Myself Assessment & Plan (1) COPD exacerbation Assessment and Plan: medical therapy Status: Acute Priority: High (2) Atrial fibrillation Assessment and Plan: rate controlled. Patient was previously on Eliquis. Status: Chronic Priority: High (3) CAD (coronary artery disease) Assessment and Plan: s/p CABG. no current angina Status: Chronic (4) HTN (hypertension) Assessment and Plan: restart medications Status: Chronic
[2017-11-17] MEDS: Albuterol-Ipratrop 3 mg / 0.5 (3 ml) UD INH SCH (22:10)
--- NOTE | 2017-11-17 22:38 | CARD ---
APPROVED REPORT Date of service: 11/17/2017 EKG Measurement Heart [id number] <Conclusion> Atrial fibrillation Abnormal ECG
[2017-11-18 05:29] LABS: HEMOGLOBIN 10.9 g/dL (12.0-18.0); MEAN CELL VOLUME 93.1 fl (80.0-94.0); MEAN CORPUSCULAR HEMOGLOBIN 31.1 pg (27.0-31.0); MEAN CORPUSCULAR HGB CONC 33.4 g/dL (33.0-37.0); RBC 3.49 Mil/uL (4.40-5.90); RED CELL DISTRIBUTION WIDTH 14.2 % (11.5-14.5); WHITE BLOOD COUNT 8.6 K/uL (4.8-10.8)
[2017-11-18 06:02] LABS: ALB/GLOB RATIO 1.5 (1.0-2.1); ALBUMIN 3.9 g/dL (3.5-5.0); CALCIUM 8.6 mg/dL (8.4-10.2)
[2017-11-18] MEDS: Albuterol-Ipratrop 3 mg / 0.5 (3 ml) UD INH SCH ×4 (07:55→19:05)
--- NOTE | 2017-11-18 08:29 | CP.PCM.PN ---
<Kvng Cordoba - Last Filed: 11/18/17 09:36> Subjective - Date & Time of Evaluation Date of Evaluation: 11/18/17 Time of Evaluation: 07:50 - Subjective Subjective: Pt was seen and evaluated at bedside this am. Denies acute overnight events. Denies sob. Reports mild L lower extremity pain. tolerating po diet Objective - Vital Signs/Intake and Output Vital Signs (last 24 hours): Temp Pulse Resp BP Pulse Ox 97 F L 56 L 20 152/75 H 97 11/18/17 08:00 11/18/17 08:00 11/18/17 08:00 11/18/17 08:00 11/18/17 08:00 Intake and Output: 11/18/17 11/18/17 06:59 18:59 Intake Total 1060 Output Total 1200 Balance -140 - Medications Medications: Current Medications Albuterol/Ipratropium (Duoneb 3 Mg/0.5 Mg (3 Ml) Ud) 3 ml INH RQID [facility] Last Admin: 11/18/17 07:55 Dose: 3 ml Amlodipine Besylate (Norvasc) 10 mg PO DAILY [facility] Apixaban (Eliquis) 5 mg PO Q12 [facility] PRN Reason: Protocol Last Admin: 11/17/17 21:22 Dose: 5 mg Aspirin (Ecotrin) 81 mg PO DAILY [facility] Atorvastatin Calcium (Lipitor) 40 mg PO DAILY [facility] Carvedilol (Coreg) 25 mg PO Q12 [facility] Last Admin: 11/17/17 21:22 Dose: 25 mg Folic Acid (Folic Acid) 1 mg PO DAILY [facility] Furosemide (Lasix) 40 mg IVP BID [facility] HCTZ/Losartan Potassium (Hyzaar 12.5 Mg-50 Mg) 2 tab PO DAILY [facility] Isosorbide Mononitrate (Imdur Er) 30 mg PO DAILY [facility] Lidocaine (Lidoderm) 1 ea TD DAILY [facility] - Labs Labs: 11/18/17 04:25 11/18/17 04:25 PT 12.1 Seconds (9.8-13.1) 11/17/17 12:35 INR 1.1 11/17/17 12:35 APTT 33.9 Seconds (25.6-37.1) 11/17/17 12:35 - Constitutional Appears: Well - Eye Exam Eye Exam: EOMI - Respiratory Exam Respiratory Exam: Decreased Breath Sounds - Cardiovascular Exam Cardiovascular Exam: Irregular Rhythm, +S1, +S2 - GI/Abdominal Exam GI & Abdominal Exam: Soft, Normal Bowel Sounds. absent: Tenderness - Extremities Exam Extremities Exam: Tenderness (L lower extremity) Assessment and Plan (1) CHF exacerbation Status: Acute (2) COPD exacerbation Status: Acute (3) CKD (chronic kidney disease) Status: Acute (4) CAD (coronary artery disease) Status: Chronic - Assessment and Plan (Free Text) Plan: Continue with current treatment plan Cardiology Dr. Kincaid: on board; recommendations appreciated L lower extremity pain with hx of dyspnea: venous doppler ordered of lower extremity Lidocaine patch for lower extremity pain Encourage ambulation case dw Dr. Shady cordoba MD PGY2 <Joel Caruso - Last Filed: 11/18/17 13:56> Objective - Vital Signs/Intake and Output Vital Signs (last 24 hours): Temp Pulse Resp BP Pulse Ox 97.4 F L 61 20 108/58 L 99 11/18/17 12:00 11/18/17 12:00 11/18/17 12:00 11/18/17 12:00 11/18/17 12:00 Intake and Output: 11/18/17 11/18/17 06:59 18:59 Intake Total 1060 Output Total 1200 Balance -140 - Medications Medications: Current Medications Albuterol/Ipratropium (Duoneb 3 Mg/0.5 Mg (3 Ml) Ud) 3 ml INH RQID [facility] Last Admin: 11/18/17 11:34 Dose: 3 ml Amlodipine Besylate (Norvasc) 10 mg PO DAILY [facility] Last Admin: 11/18/17 09:13 Dose: 10 mg Apixaban (Eliquis) 5 mg PO Q12 [facility] PRN Reason: Protocol Last Admin: 11/18/17 09:01 Dose: 5 mg Aspirin (Ecotrin) 81 mg PO DAILY [facility] Last Admin: 11/18/17 09:02 Dose: 81 mg Atorvastatin Calcium (Lipitor) 40 mg PO DAILY [facility] Last Admin: 11/18/17 09:13 Dose: 40 mg Carvedilol (Coreg) 6.25 mg PO Q12 [facility] Folic Acid (Folic Acid) 1 mg PO DAILY [facility] Last Admin: 11/18/17 09:02 Dose: 1 mg Furosemide (Lasix) 40 mg IVP DAILY [facility] HCTZ/Losartan Potassium (Hyzaar 12.5 Mg-50 Mg) 2 tab PO DAILY [facility] Last Admin: 11/18/17 09:04 Dose: 2 tab Isosorbide Mononitrate (Imdur Er) 30 mg PO DAILY [facility] Last Admin: 11/18/17 09:05 Dose: 30 mg Lidocaine (Lidoderm) 1 ea TD DAILY [facility] Last Admin: 11/18/17 09:09 Dose: 1 ea - Labs Labs: 11/18/17 04:25 11/18/17 04:25 PT 12.1 Seconds (9.8-13.1) 11/17/17 12:35 INR 1.1 11/17/17 12:35 APTT 33.9 Seconds (25.6-37.1) 11/17/17 12:35 Assessment and Plan - Assessment and Plan (Free Text) Plan: Patient was personally seen and examined by me in rounds with residents. Available labs and diagnostic data reviewed. Case, Patient's condition and management plan discussed with residents in rounds. Agree with resident's progress note. Plan: As ordered.
[2017-11-18] MEDS ORDERED: Enoxaparin 40 mg Syringe SC SCH (09:00)
[2017-11-18] MEDS: HCTZ/Losartan 12.5/50 Tab PO SCH (09:04)
[2017-11-18] MEDS: Lidocaine 5% Patch TD SCH (09:09)
--- NOTE | 2017-11-18 13:10 | US ---
Date of service: 11/18/2017 PROCEDURE: Bilateral lower extremity venous duplex Doppler. HISTORY: Cramps: History of dyspnea COMPARISON: Comparison made with prior right lower extremity DVT exam dated 09/01/2015 TECHNIQUE: Bilateral common femoral, superficial femoral, popliteal and posterior tibial veins were evaluated. Flow was assessed with color Doppler, compressibility, assessment of phasic flow and augmentation response. FINDINGS: Note that the examination is somewhat limited due to body habitus with poor visualization of the calf veins. COMMON FEMORAL VEIN: Right CFV: Unremarkable. Left CFV: Unremarkable. SUPERFICIAL FEMORAL VEIN: Right SFV: Unremarkable. Left SFV: Unremarkable. POPLITEAL VEIN: Right Popliteal: Unremarkable. Left Popliteal: Unremarkable. POSTERIOR TIBIAL VEIN: Right PTV: Unremarkable. Left PTV: Unremarkable. OTHER FINDINGS: None. IMPRESSION: Limited study demonstrating no definitive evidence of deep venous thrombosis.
--- NOTE | 2017-11-18 17:22 | CP.PCM.PN ---
Subjective - Date & Time of Evaluation Date of Evaluation: 11/18/17 Time of Evaluation: 17:10 - Subjective Subjective: patient has no current chest pain or dyspnea. He had a period of bradycardia, and currently Coreg is being decreased Objective - Vital Signs/Intake and Output Vital Signs (last 24 hours): Temp Pulse Resp BP Pulse Ox 97.3 F L 57 L 20 110/43 L 96 11/18/17 16:24 11/18/17 16:24 11/18/17 16:24 11/18/17 16:24 11/18/17 16:24 Intake and Output: 11/18/17 11/18/17 06:59 18:59 Intake Total 1060 Output Total 1200 Balance -140 - Medications Medications: Current Medications Albuterol/Ipratropium (Duoneb 3 Mg/0.5 Mg (3 Ml) Ud) 3 ml INH RQID [facility] Last Admin: 11/18/17 15:05 Dose: 3 ml Amlodipine Besylate (Norvasc) 10 mg PO DAILY [facility] Last Admin: 11/18/17 09:13 Dose: 10 mg Apixaban (Eliquis) 5 mg PO Q12 [facility] PRN Reason: Protocol Last Admin: 11/18/17 09:01 Dose: 5 mg Aspirin (Ecotrin) 81 mg PO DAILY [facility] Last Admin: 11/18/17 09:02 Dose: 81 mg Atorvastatin Calcium (Lipitor) 40 mg PO DAILY [facility] Last Admin: 11/18/17 09:13 Dose: 40 mg Carvedilol (Coreg) 6.25 mg PO Q12 [facility] Folic Acid (Folic Acid) 1 mg PO DAILY [facility] Last Admin: 11/18/17 09:02 Dose: 1 mg Furosemide (Lasix) 40 mg IVP DAILY [facility] HCTZ/Losartan Potassium (Hyzaar 12.5 Mg-50 Mg) 2 tab PO DAILY [facility] Last Admin: 11/18/17 09:04 Dose: 2 tab Isosorbide Mononitrate (Imdur Er) 30 mg PO DAILY [facility] Last Admin: 11/18/17 09:05 Dose: 30 mg Lidocaine (Lidoderm) 1 ea TD DAILY [facility] Last Admin: 11/18/17 09:09 Dose: 1 ea - Labs Labs: 11/18/17 04:25 11/18/17 04:25 PT 12.1 Seconds (9.8-13.1) 11/17/17 12:35 INR 1.1 11/17/17 12:35 APTT 33.9 Seconds (25.6-37.1) 11/17/17 12:35 - Constitutional Appears: Non-toxic - Head Exam Head Exam: NORMAL INSPECTION - Eye Exam Eye Exam: Normal appearance - ENT Exam ENT Exam: Mucous Membranes Moist - Neck Exam Neck Exam: Full ROM - Respiratory Exam Respiratory Exam: NORMAL BREATHING PATTERN - Cardiovascular Exam Cardiovascular Exam: Irregular Rhythm - GI/Abdominal Exam GI & Abdominal Exam: Normal Bowel Sounds - Rectal Exam Rectal Exam: Deferred - Extremities Exam Extremities Exam: Pedal Edema - Back Exam Back Exam: NORMAL INSPECTION - Neurological Exam Neurological Exam: Alert - Psychiatric Exam Psychiatric exam: Normal Affect - Skin Skin Exam: Normal Color Assessment and Plan (1) COPD exacerbation Assessment & Plan: improving Status: Acute (2) Atrial fibrillation Assessment & Plan: slow ventricular response. decreasing Coreg. will follow Status: Chronic (3) CAD (coronary artery disease) Assessment & Plan: s/p CABG. CArdaic cath in February revealed patent bypass grafts Status: Chronic (4) HTN (hypertension) Status: Chronic
[2017-11-19 07:14] LABS: HEMOGLOBIN 11.3 g/dL (12.0-18.0); MEAN CELL VOLUME 93.7 fl (80.0-94.0); MEAN CORPUSCULAR HEMOGLOBIN 31.2 pg (27.0-31.0); MEAN CORPUSCULAR HGB CONC 33.3 g/dL (33.0-37.0); RBC 3.62 Mil/uL (4.40-5.90); RED CELL DISTRIBUTION WIDTH 14.3 % (11.5-14.5); WHITE BLOOD COUNT 9.8 K/uL (4.8-10.8)
[2017-11-19] MEDS: Albuterol-Ipratrop 3 mg / 0.5 (3 ml) UD INH SCH ×4 (07:15→19:07)
[2017-11-19 07:21] LABS: CALCIUM 8.6 mg/dL (8.4-10.2)
[2017-11-19] MEDS: Lidocaine 5% Patch TD SCH (08:49)
[2017-11-19] MEDS: HCTZ/Losartan 12.5/50 Tab PO SCH (08:57)
--- NOTE | 2017-11-19 11:52 | PN ---
DATE: 11/19/2017 SUBJECTIVE: The patient seen and examined. Interim events noted. Consults noted and appreciated. Cardiology followup intervention noted and appreciated. The patient remains in progressive care unit. The patient feels okay. Denies any chest pain or shortness of breath. PHYSICAL EXAMINATION: GENERAL: The patient is in no acute distress. VITAL SIGNS: Stable. HEART: S1 and S2, normal and regular. LUNGS: Good bilateral air exchange. Occasional basal crepitation. Prolongation of expiration. He has been slowly improving. ABDOMEN: Soft and nontender. No organomegaly. No fluid. Bowel sounds are present and normal. EXTREMITIES: No edema. No calf swelling. No tenderness. No acute ischemia. 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 DIAGNOSTIC DATA: Available diagnostic data reviewed. Telemetry monitoring does not reveal significant arrhythmia. ASSESSMENT: Overall, the patient's general medical condition is stable and improved. Plan as ordered. Joel Caruso MD
[2017-11-20 05:42] LABS: HEMOGLOBIN 11.1 g/dL (12.0-18.0); MEAN CELL VOLUME 94.3 fl (80.0-94.0); MEAN CORPUSCULAR HEMOGLOBIN 31.5 pg (27.0-31.0); MEAN CORPUSCULAR HGB CONC 33.4 g/dL (33.0-37.0); RBC 3.51 Mil/uL (4.40-5.90); RED CELL DISTRIBUTION WIDTH 14.2 % (11.5-14.5); WHITE BLOOD COUNT 8.4 K/uL (4.8-10.8)
[2017-11-20 06:03] LABS: ALBUMIN 3.7 g/dL (3.5-5.0); CALCIUM 8.2 mg/dL (8.4-10.2)
[2017-11-20 06:12] LABS: ALB/GLOB RATIO 1.5 (1.0-2.1)
[2017-11-20] MEDS: Albuterol-Ipratrop 3 mg / 0.5 (3 ml) UD INH SCH ×4 (07:25→19:07)
[2017-11-20] MEDS: HCTZ/Losartan 12.5/50 Tab PO SCH (09:06)
[2017-11-20] MEDS: Lidocaine 5% Patch TD SCH (09:06)
--- NOTE | 2017-11-20 10:49 | CP.PCM.PN ---
Subjective - Date & Time of Evaluation Date of Evaluation: 11/20/17 Time of Evaluation: 10:40 - Subjective Subjective: patient has dyspnea at times. Telemetry reviewed. Periods of bradycardia noted. Betablocker dose has been decreased. Objective - Vital Signs/Intake and Output Vital Signs (last 24 hours): Temp Pulse Resp BP Pulse Ox 97.6 F 47 L 16 148/73 95 11/20/17 08:00 11/20/17 09:07 11/20/17 08:00 11/20/17 09:07 11/20/17 08:00 Intake and Output: 11/20/17 11/20/17 06:59 18:59 Intake Total 800 Output Total 500 Balance 300 - Medications Medications: Current Medications Albuterol/Ipratropium (Duoneb 3 Mg/0.5 Mg (3 Ml) Ud) 3 ml INH RQID [facility] Last Admin: 11/20/17 07:25 Dose: Not Given Amlodipine Besylate (Norvasc) 10 mg PO DAILY [facility] Last Admin: 11/20/17 09:05 Dose: 10 mg Apixaban (Eliquis) 5 mg PO Q12 [facility] PRN Reason: Protocol Last Admin: 11/20/17 09:05 Dose: 5 mg Aspirin (Ecotrin) 81 mg PO DAILY [facility] Last Admin: 11/20/17 09:06 Dose: 81 mg Atorvastatin Calcium (Lipitor) 40 mg PO DAILY [facility] Last Admin: 11/20/17 09:06 Dose: 40 mg Carvedilol (Coreg) 6.25 mg PO Q12 [facility] Last Admin: 11/20/17 09:07 Dose: Not Given Folic Acid (Folic Acid) 1 mg PO DAILY [facility] Last Admin: 11/20/17 09:06 Dose: 1 mg Furosemide (Lasix) 40 mg IVP DAILY [facility] Last Admin: 11/20/17 09:04 Dose: 40 mg HCTZ/Losartan Potassium (Hyzaar 12.5 Mg-50 Mg) 2 tab PO DAILY [facility] Last Admin: 11/20/17 09:06 Dose: 2 tab Isosorbide Mononitrate (Imdur Er) 30 mg PO DAILY [facility] Last Admin: 11/20/17 09:05 Dose: 30 mg Lidocaine (Lidoderm) 1 ea TD DAILY [facility] Last Admin: 11/20/17 09:06 Dose: 1 ea - Labs Labs: 11/20/17 04:31 11/20/17 04:31 PT 12.1 Seconds (9.8-13.1) 11/17/17 12:35 INR 1.1 11/17/17 12:35 APTT 33.9 Seconds (25.6-37.1) 11/17/17 12:35 - Constitutional Appears: Non-toxic - Head Exam Head Exam: NORMAL INSPECTION - Eye Exam Eye Exam: Normal appearance - ENT Exam ENT Exam: Mucous Membranes Moist - Neck Exam Neck Exam: Full ROM - Respiratory Exam Respiratory Exam: Decreased Breath Sounds - Cardiovascular Exam Cardiovascular Exam: Bradycardia - GI/Abdominal Exam GI & Abdominal Exam: Normal Bowel Sounds - Rectal Exam Rectal Exam: Deferred - Extremities Exam Extremities Exam: Pedal Edema - Back Exam Back Exam: NORMAL INSPECTION - Neurological Exam Neurological Exam: Alert - Psychiatric Exam Psychiatric exam: Normal Affect - Skin Skin Exam: Normal Color Assessment and Plan (1) Atrial fibrillation Assessment & Plan: slow ventricular response. remains bradycardic despite decreasing dose of Coreg. recommend EP eval to assess if PPM is necessary Status: Chronic (2) CAD (coronary artery disease) Assessment & Plan: no angina Status: Chronic (3) HTN (hypertension) Assessment & Plan: blood pressure control Status: Chronic
--- NOTE | 2017-11-20 21:10 | PN ---
DATE: 11/20/2017 SUBJECTIVE: The patient seen and examined. Interim events noted. Consults noted and appreciated. Cardiology followup and intervention noted and appreciated. The patient remains in progressive care unit on telemetry monitoring. Denies any specific complaints. [facility]. Tests, the patient was having results. No chest pain, no shortness of breath. PHYSICAL EXAMINATION: GENERAL: The patient is in no acute distress. VITAL SIGNS: Stable. HEART: S1 and S2, normal and regular. LUNGS: Good bilateral air exchange. ABDOMEN: Soft, and nontender. EXTREMITIES: No edema. No calf swelling. No tenderness. No acute ischemia. 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 DIAGNOSTIC DATA: Available diagnostic data reviewed. Telemetry monitoring shows occasional episodes of bradycardia. ASSESSMENT AND PLAN: Overall, the patient is clinically stable. Cardiology suggested Electrophysiology evaluation. We will discuss with bandoleer packer about the same. Overall, the patient is clinically stable. Plan as ordered. Joel Caruso MD
[2017-11-21 05:48] LABS: HEMOGLOBIN 11.1 g/dL (12.0-18.0); MEAN CELL VOLUME 93.8 fl (80.0-94.0); MEAN CORPUSCULAR HEMOGLOBIN 31.5 pg (27.0-31.0); MEAN CORPUSCULAR HGB CONC 33.6 g/dL (33.0-37.0); RBC 3.53 Mil/uL (4.40-5.90); RED CELL DISTRIBUTION WIDTH 13.8 % (11.5-14.5); WHITE BLOOD COUNT 8.2 K/uL (4.8-10.8)
[2017-11-21 06:24] LABS: ALB/GLOB RATIO 1.5 (1.0-2.1); ALBUMIN 3.8 g/dL (3.5-5.0); CALCIUM 8.4 mg/dL (8.4-10.2)
[2017-11-21] MEDS: Albuterol-Ipratrop 3 mg / 0.5 (3 ml) UD INH SCH ×4 (07:50→19:12)
[2017-11-21] MEDS: HCTZ/Losartan 12.5/50 Tab PO SCH (09:24)
[2017-11-21] MEDS: Lidocaine 5% Patch TD SCH (09:25)
--- NOTE | 2017-11-21 13:21 | PN ---
DATE: 11/21/2017 SUBJECTIVE: The patient seen and examined. Interim events noted. Consults noted and appreciated. The patient remains in progressive care unit, on telemetry monitoring. The patient feels okay. Denies any specific complaint of chest pain or shortness of breath. The patient is doing well. The patient is sleepy, arousable, but denies any specific complaint. PHYSICAL EXAMINATION: GENERAL: The patient is in no acute distress. VITAL SIGNS: Stable. HEART: S1 and S2, normal and regular. LUNGS: Good bilateral air exchange. ABDOMEN: Soft, nontender. No organomegaly. No fluid. Bowel sounds are plus and normal. EXTREMITIES: No calf swelling. No tenderness. No acute ischemia. No edema. 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 DIAGNOSTIC DATA: Available diagnostic data reviewed. Telemetry monitoring does not reveal significant arrhythmia, though occasional episodes of bradycardia. ASSESSMENT AND PLAN: Overall, the patient's general medical condition is stable. Plan as ordered. Joel Caruso MD
--- NOTE | 2017-11-21 14:17 | PQF ---
PROVIDER RESPONSE TEXT: Chronic kidney disease stage 3 REVIEWER QUERY TEXT: Kidney Disease, Chronic CKD Stage Chronic Kidney Disease (CKD) is documented in the Medical Record. Please specify the disease stage ( includes probable or suspected) Such as: -- Chronic kidney disease Stage 1 -- Chronic kidney disease Stage 2 -- Chronic kidney disease Stage 3 -- Chronic kidney disease Stage 4 -- Chronic kidney disease Stage 5 -- Chronic kidney disease Stage 5, requiring dialysis -- End Stage Renal Disease -- Other, please specify Stages are defined by the [employer] as follows: CKD Stage I GFR >= 90 ml / min per 1.73 m2 and persistent albuminuria CKD Stage 2 GFR between 60 and 89 with persistent albuminuria CKD Stage 3 GFR between 30 and 59 CKD Stage 4 GFR between 15 and 29 CKD Stage 5 GFR between <15 or End Stage Renal Disease The patient's Clinical Indicators include: BUN 44, 52 Creatinine 2.0, 2.0 GFR ( ) 40, 40 GFR ( Non - ) 33, 33 Query created by: Courtney Gray on 11/18/2017 9:23 AM Electronically signed by: Joel Caruso 11/21/2017 2:14 PM
[2017-11-22 05:10] LABS: HEMOGLOBIN 11.9 g/dL (12.0-18.0); MEAN CORPUSCULAR HEMOGLOBIN 31.2 pg (27.0-31.0); MEAN CORPUSCULAR HGB CONC 33.6 g/dL (33.0-37.0); RBC 3.8 Mil/uL (4.40-5.90); RED CELL DISTRIBUTION WIDTH 14.2 % (11.5-14.5)
[2017-11-22 05:24] LABS: ALB/GLOB RATIO 1.3 (1.0-2.1); ALBUMIN 3.9 g/dL (3.5-5.0); CALCIUM 8.6 mg/dL (8.4-10.2)
--- NOTE | 2017-11-22 07:02 | CON ---
DATE: 11/21/2017 ELECTROPHYSIOLOGY CONSULTATION REQUESTING PHYSICIAN: Gerardo Kincaid MD REASON FOR ELECTROPHYSIOLOGY CONSULTATION: 1. Atrial fibrillation. 2. Symptomatic bradycardia. 3. Coronary artery disease, atherosclerotic heart disease. HISTORY OF PRESENT ILLNESS: Mr. Darwin Tsang is a 76-year-old male with past medical history significant for hypertension, coronary artery disease, chronic atrial fibrillation, obesity, who presents initially to [facility] on the day of admission, 11/17/2017, with complaints of worsening shortness of breath, fatigue and not feeling well for a period of few weeks. The patient was seen by his media strategist, Dr. Gerardo Kincaid, and was sent in for further evaluation and management. The patient was found to be hypertensive and had been treated with amlodipine, losartan, and carvedilol. The patient was admitted, optimized in terms of his breathing status as well as hypertension. The patient was found to be bradycardic with atrial fibrillation and slow ventricular response. Carvedilol was discontinued; however, baseline bradycardia continue to be present with heart rates in the 50s continuously overnight. Heart rates do drop into the 30s on occasion. I was asked to see him in regards to the atrial bradycardia, in particular period. The patient complains of not being able to feel well. Difficulty with daily activities, not having any energy to perform daily tasks. He denies chest pain, palpitations, or syncope. REVIEW OF SYSTEMS: From general review, denies any fevers, chills, and periods of sweating. He does, however, complain of as previously mentioned, increased fatigue and loss of energy. He denies any visual disturbances, photophobia, or acute change in vision. No hearing related issues. ENT complaints are not present in the form of nasal discharge, sinus issues, pressure, or headache. Cardiovascular review: Denies chest pain, angina, claudication. He does have the aforementioned dyspnea on exertion. Occasional symptoms of skipped heartbeat and again no syncope. No nausea, vomiting, diarrhea, constipation, coffee-ground emesis, heartburn, fecal incontinent with stools, urinary complaints. No generalized or focal weakness. No numbness, focal weakness. No recent history of falls. No psychosocial complaints. No easy bleeding or bruising. PAST MEDICAL HISTORY: As previously mentioned, does have a history of chronic atrial fibrillation, congestive heart failure, hypercholesterolemia, hypertension as well as lower extremity edema. He does in addition have COPD. LABORATORY DATA: On review of relevant . No white count elevation with a current value of 8.2, platelets of 172. The patient on admission had INR of 1.1, BUN and creatinine of 52 and 1.7 which is roughly stable to the values from yesterday. LFTs are within normal limits. Total BNP of 1530, total protein 6.1, albumin 3.7, globulin is 2.4. PHYSICAL EXAMINATION: VITAL SIGNS: Temperature is 97.7, heart rate of 55, blood pressure is 134/56, respirations are 17. MEDICATIONS: His medications include amlodipine 10 mg p.o. daily, aspirin 81 mg p.o. daily, Lipitor 40 mg p.o. daily, carvedilol 6.25 mg every 12 hours which has not been given. ASSESSMENT AND PLAN: 1. Atrial fibrillation whose rate previous had been controlled on carvedilol, currently has been controlled even without carvedilol, and there are periods of significant bradycardia with heart rates down into the 30s. At this point, the patient is a candidate and is agreeable to a permanent pacemaker for chronotropic support To that end, we will hold Eliquis dosing tomorrow in preparation to permanent pacemaker placement. 2. Bradycardia which at this point, the patient appears to be symptomatic. Chronotropic support in the form of pacemaker would then allow for medical management of both coronary artery disease as well as systolic heart failure. 3. Coronary artery disease, atherosclerotic heart disease. The patient has history of coronary artery bypass graft surgery. Currently appears to be stable without any symptoms of chest pain. 4. Anemia, which will be watched carefully. I have discussed the findings and recommendations with the patient. He is agreeable. Again we will hold the Eliquis. We will also check a TSH to rule out any thyroid abnormalities which may be contributing to his condition. Thank you for allowing me to participate in the care of your patient. Please do not hesitate to call if you have any questions in regards to his care. Yours sincerely, Espinoza Ball MD [facility] # [id number]
[2017-11-22] MEDS: Albuterol-Ipratrop 3 mg / 0.5 (3 ml) UD INH SCH ×4 (07:40→19:08)
[2017-11-22] MEDS: HCTZ/Losartan 12.5/50 Tab PO SCH (08:58)
[2017-11-22] MEDS: Lidocaine 5% Patch TD SCH (08:59)
--- NOTE | 2017-11-22 14:19 | PN ---
DATE: 11/22/2017 SUBJECTIVE: The patient seen and examined. Interim events noted. Consults noted and appreciated. Cardiology and Electrophysiology consult and intervention noted and appreciated. The patient remains in progressive care unit, on telemetry monitoring, sleeping, arousable. Denies any specific complaint. No chest pain. No shortness of breath. Leg pain is adequately controlled. PHYSICAL EXAMINATION: GENERAL: The patient is in no acute distress. VITAL SIGNS: Stable. HEART: S1 and S2, normal and regular. LUNGS: Good bilateral air exchange. ABDOMEN: Soft, nontender. EXTREMITIES: No calf swelling. No tenderness. No acute ischemia. 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 DIAGNOSTIC DATA: Available diagnostic data reviewed. Telemetry monitoring reveals occasional episodes of bradycardia. ASSESSMENT AND PLAN: The patient is for pacemaker placement . Plan as ordered. Case and plan discussed with the patient. Joel Caruso MD
[2017-11-22] MEDS ORDERED: Liquid Adhesive TOP ONE ×2 (14:47→16:42)
[2017-11-22] MEDS ORDERED: ceFAZolin IV 1 gm in Dextrose 2 GM/100 ML BAG IVPB ONE (14:47)
[2017-11-22] MEDS ORDERED: Lactated Ringer's 1,000 ML IV ONE (16:00)
[2017-11-22] MEDS ORDERED: Bupivacaine 0.5% Inj(30mL) IJ ONE (16:35)
[2017-11-22] MEDS ORDERED: Lactated Ringer's 1,000 ML IV SCH (17:30)
--- NOTE | 2017-11-22 18:23 | RAD ---
Date of service: 11/22/2017 HISTORY: post insertion of pacemaker COMPARISON: 11/17/2017. FINDINGS: LUNGS: No active pulmonary disease. PLEURA: No significant pleural effusion identified, no pneumothorax apparent. CARDIOVASCULAR: Position/ configuration of pacemaker pneumothorax identified. OSSEOUS STRUCTURES: No significant abnormalities. Healed posterior lateral right rib fractures likely posttraumatic. VISUALIZED UPPER ABDOMEN: Normal. OTHER FINDINGS: None. IMPRESSION: No adverse findings common no pneumothorax following pacemaker insertion on the right side approach.
--- NOTE | 2017-11-22 18:29 | RAD ---
Date of service: 11/22/2017 PROCEDURE: Intraoperative Fluoroscopy. HISTORY: FLUOROSCOPY FINDINGS: Fluoroscopic assistance was provided for pacemaker placement.. Please refer to the operative report from FELICIA Quintana. Total fluoroscopic time (continuous mode) utilized during the procedure 187.5 (seconds).
--- NOTE | 2017-11-23 03:17 | OP ---
PROCEDURE DATE: 11/22/2017 OPERATION: Insertion of single lead permanent pacemaker. PREPROCEDURE DIAGNOSES: Symptomatic bradycardia and atrial fibrillation. REFERRING PHYSICIAN: Gerardo Kincaid MD SURGEON: Espinoza Ball MD. BRIEF HISTORY: Mr. Darwin Tsang is a 76-year-old male with past medical history significant for hypertension, coronary artery disease, chronic atrial fibrillation, obesity, who presents to [facility] (Formerly [facility]3] with complaints of worsening shortness of breath, fatigue, and not feeling well. The patient was found to have hypertensive urgency, episodes of bradycardia that did not resolve with reducing and eliminating his carvedilol. After discussing the case with managing director global strategic publisher sales as well as the patient's family, the patient himself, it was felt the chronotropic support in the form of a single lead permanent pacemaker in the setting of atrial fibrillation would be reasonable. The patient's anticoagulation was held this morning. Informed consent was received for the procedure as well as for anesthesia performed by Dr. Gonsalez. DESCRIPTION OF PROCEDURE: Mr. Darwin Tsang was brought to the operating room at [facility] (Former[facility]3] for the aforementioned procedure. All appropriate monitors were placed. The right side was prepped. The surgical site was anesthetized using 2% Marcaine solution. A 3.5 cm incision was made two fingerbreadths below the clavicle using blunt dissection and electrocautery. The fascial planes were dissected and cephalic vein cutdown was performed. An 0.035 guidewire was then inserted via this access point without difficulty. The RV bipolar lead, which is a Medtronic JOHANA XT device, serial number [id number] was inserted via the sheath, manipulated into the right ventricular apex under fluoroscopic guidance without difficulty. The active tip was extended. Parameters on this lead were within normal limits. R-wave is measured at 9.2. Threshold is 0.4 volts, 0.5 milliseconds, at a current of 0.3 milliamps. Impedance on this lead was 1141. This lead was then sewn into place. Additional ligatures were applied to achieve hemostasis. The lead was then connected to the pulse generator, which is a Medtronic JOHANA XT device, serial number [id number]. The lead system and device were then coiled and placed in the pocket again without difficulty. Retention suture was applied to prevent device migration. The fascial and skin layers were then brought together using two layers of 2-0 Vicryl. Mastisol and Steri-Strips were applied to close the final layer, a small pressure dressing was then applied. The patient tolerated the procedure and was comfortable throughout. PLAN: The patient should be monitored. Chest x-ray and 12-lead EKG will be ordered. If there is no significant evidence of bleeding, anticoagulation can be restarted tomorrow. The patient will follow up with Dr. Gerardo Kincaid for the totality of his cardiac care. Thank you for allowing me to participate in the care of your patient. Please do not hesitate to call if you have any questions in regards to his care. Espinoza Ball MD
[2017-11-23 06:18] LABS: HEMOGLOBIN 12.6 g/dL (12.0-18.0); MEAN CORPUSCULAR HEMOGLOBIN 31.3 pg (27.0-31.0); MEAN CORPUSCULAR HGB CONC 33.6 g/dL (33.0-37.0); RBC 4.02 Mil/uL (4.40-5.90); RED CELL DISTRIBUTION WIDTH 13.9 % (11.5-14.5); WHITE BLOOD COUNT 8.5 K/uL (4.8-10.8)
[2017-11-23 06:34] LABS: ALB/GLOB RATIO 1.5 (1.0-2.1); ALBUMIN 4.1 g/dL (3.5-5.0); CALCIUM 8.9 mg/dL (8.4-10.2)
[2017-11-23] MEDS: Albuterol-Ipratrop 3 mg / 0.5 (3 ml) UD INH SCH ×3 (07:51→15:33)
[2017-11-23] MEDS: HCTZ/Losartan 12.5/50 Tab PO SCH (08:57)
[2017-11-23] MEDS: Lidocaine 5% Patch TD SCH (08:58)
--- NOTE | 2017-11-23 09:12 | CP.PCM.PN ---
<Kvng Emmanuel - Last Filed: 11/23/17 14:04> Subjective - Date & Time of Evaluation Date of Evaluation: 11/23/17 Time of Evaluation: 07:00 - Subjective Subjective: Pt seen and examined at bedside with Dr. Caruso Pt denies acute events overnight. Denies CP/SOB/N/V. tolerating PO diet. pacemaker placed yesterday by Dr. Sanford Objective - Vital Signs/Intake and Output Vital Signs (last 24 hours): Temp Pulse Resp BP Pulse Ox 97.4 F L 63 20 124/67 99 11/23/17 08:00 11/23/17 08:00 11/23/17 08:00 11/23/17 08:58 11/23/17 08:00 - Medications Medications: Current Medications Albuterol/Ipratropium (Duoneb 3 Mg/0.5 Mg (3 Ml) Ud) 3 ml INH RQID [facility] Last Admin: 11/23/17 07:51 Dose: Not Given Amlodipine Besylate (Norvasc) 10 mg PO DAILY [facility] Last Admin: 11/23/17 08:57 Dose: 10 mg Aspirin (Ecotrin) 81 mg PO DAILY [facility] Last Admin: 11/23/17 08:57 Dose: 81 mg Atorvastatin Calcium (Lipitor) 40 mg PO DAILY [facility] Last Admin: 11/23/17 08:57 Dose: 40 mg Carvedilol (Coreg) 6.25 mg PO Q12 [facility] Last Admin: 11/23/17 08:58 Dose: 6.25 mg Folic Acid (Folic Acid) 1 mg PO DAILY [facility] Last Admin: 11/23/17 08:58 Dose: 1 mg Furosemide (Lasix) 40 mg IVP DAILY [facility] Last Admin: 11/23/17 08:58 Dose: 40 mg HCTZ/Losartan Potassium (Hyzaar 12.5 Mg-50 Mg) 2 tab PO DAILY [facility] Last Admin: 11/23/17 08:57 Dose: 2 tab Lactated Ringer's (Lactated Ringer's) 1,000 mls @ 75 mls/hr IV .[id number] [facility] Isosorbide Mononitrate (Imdur Er) 30 mg PO DAILY [facility] Last Admin: 11/23/17 08:57 Dose: 30 mg Lidocaine (Lidoderm) 1 ea TD DAILY [facility] Last Admin: 11/23/17 08:58 Dose: 1 ea - Labs Labs: 11/23/17 05:20 11/23/17 05:20 PT 12.1 Seconds (9.8-13.1) 11/17/17 12:35 INR 1.1 11/17/17 12:35 APTT 33.9 Seconds (25.6-37.1) 11/17/17 12:35 - Constitutional Appears: Well, No Acute Distress - Eye Exam Eye Exam: EOMI - Respiratory Exam Respiratory Exam: Clear to Ausculation Bilateral, NORMAL BREATHING PATTERN. absent: Wheezes - Cardiovascular Exam Cardiovascular Exam: +S1, +S2 - GI/Abdominal Exam GI & Abdominal Exam: Soft, Normal Bowel Sounds. absent: Tenderness - Neurological Exam Neurological Exam: Alert, Awake, CN II-XII Intact, Oriented x3 - Psychiatric Exam Psychiatric exam: Normal Affect, Normal Mood Assessment and Plan (1) CHF exacerbation Status: Acute (2) COPD exacerbation Status: Acute (3) CKD (chronic kidney disease) Status: Acute (4) CAD (coronary artery disease) Status: Chronic - Assessment and Plan (Free Text) Plan: Continue with current treatment plan as ordered Pt to start PT today pending resuming anticoagulant therapy today case dw Dr. Shady Emmanuel MD PGY2 <Joel Caruso - Last Filed: 11/24/17 07:38> Objective - Vital Signs/Intake and Output Vital Signs (last 24 hours): Temp Pulse Resp BP Pulse Ox 98.2 F 61 17 104/62 99 11/23/17 15:45 11/23/17 15:45 11/23/17 15:45 11/23/17 15:45 11/23/17 15:45 - Labs Labs: 11/23/17 05:20 11/23/17 05:20 PT 12.1 Seconds (9.8-13.1) 11/17/17 12:35 INR 1.1 11/17/17 12:35 APTT 33.9 Seconds (25.6-37.1) 11/17/17 12:35 Assessment and Plan - Assessment and Plan (Free Text) Plan: Patient was personally seen and examined by me in rounds with residents. Available labs and diagnostic data reviewed. Case, Patient's condition and management plan discussed with residents in rounds. Agree with resident's progress note. Plan: As ordered.
[2017-11-23 12:37] VITALS: O2SAT 99
--- NOTE | 2017-11-23 14:18 | CP.PCM.DIS ---
Provider - Provider Date of Admission: 11/17/17 14:02 Attending physician: Joel Caruso MD Time Spent in preparation of Discharge (in minutes): 20 Diagnosis - Discharge Diagnosis (1) CHF exacerbation Status: Acute (2) COPD exacerbation Status: Acute Priority: High (3) CKD (chronic kidney disease) Status: Acute (4) CAD (coronary artery disease) Status: Chronic Hospital Course - Lab Results Lab Results: Micro Results 11/17/17 14:10 Blood-Venous Blood Culture - Final NO GROWTH AFTER 5 DAYS 11/17/17 14:10 Blood-Venous Gram Stain - Final TEST NOT PERFORMED 11/17/17 14:50 Blood-Venous Blood Culture - Final NO GROWTH AFTER 5 DAYS 11/17/17 14:50 Blood-Venous Gram Stain - Final TEST NOT PERFORMED Most Recent Lab Values WBC 8.5 K/uL (4.8-10.8) 11/23/17 05:20 RBC 4.02 Mil/uL (4.40-5.90) L 11/23/17 05:20 Hgb 12.6 g/dL (12.0-18.0) 11/23/17 05:20 Hct 37.4 % (35.0-51.0) 11/23/17 05:20 MCV 93.0 fl (80.0-94.0) 11/23/17 05:20 MCH 31.3 pg (27.0-31.0) H 11/23/17 05:20 MCHC 33.6 g/dL (33.0-37.0) 11/23/17 05:20 RDW 13.9 % (11.5-14.5) 11/23/17 05:20 Plt Count 205 K/uL (130-400) 11/23/17 05:20 MPV 8.9 fl (7.2-11.7) 11/17/17 12:35 Neut % (Auto) 66.7 % (50.0-75.0) 11/17/17 12:35 Lymph % (Auto) 16.6 % (20.0-40.0) L 11/17/17 12:35 Banner % (Auto) 12.4 % (0.0-10.0) H 11/17/17 12:35 Eos % (Auto) 3.4 % (0.0-4.0) 11/17/17 12:35 Baso % (Auto) 0.9 % (0.0-2.0) 11/17/17 12:35 Neut # (Auto) 4.7 K/uL (1.8-7.0) 11/17/17 12:35 Lymph # (Auto) 1.2 K/uL (1.0-4.3) 11/17/17 12:35 Banner # (Auto) 0.9 K/uL (0.0-0.8) H 11/17/17 12:35 Eos # (Auto) 0.2 K/uL (0.0-0.7) 11/17/17 12:35 Baso # (Auto) 0.1 K/uL (0.0-0.2) 11/17/17 12:35 PT 12.1 Seconds (9.8-13.1) 11/17/17 12:35 INR 1.1 11/17/17 12:35 APTT 33.9 Seconds (25.6-37.1) 11/17/17 12:35 Sodium 134 mmol/l (132-148) 11/23/17 05:20 Potassium 4.6 MMOL/L (3.6-5.0) 11/23/17 05:20 Chloride 93 mmol/L (98-107) L 11/23/17 05:20 Carbon Dioxide 33 mmol/L (22-30) H 11/23/17 05:20 Anion Gap 13 (10-20) 11/23/17 05:20 BUN 58 mg/dl (9-20) H 11/23/17 05:20 Creatinine 2.0 mg/dl (0.8-1.5) H 11/23/17 05:20 Est GFR ( Amer) 40 11/23/17 05:20 Est GFR (Non-Af Amer) 33 11/23/17 05:20 Random Glucose 129 mg/dL (75-110) H 11/23/17 05:20 Calcium 8.9 mg/dL (8.4-10.2) 11/23/17 05:20 Phosphorus 5.1 mg/dl (2.5-4.5) H 11/23/17 05:20 Magnesium 2.2 MG/DL (1.6-2.3) 09/12/18 05:20 Total Bilirubin 1.2 mg/dl (0.2-1.3) 11/23/17 05:20 AST 27 U/L (17-59) 11/23/17 05:20 ALT 23 U/L (21-72) 11/23/17 05:20 Alkaline Phosphatase 80 U/L (38-126) 11/23/17 05:20 Troponin I 0.0150 ng/mL (0.00-0.120) 11/17/17 12:35 NT-Pro-B Natriuret Pep 1530 pg/ml (0-900) H 11/17/17 12:35 Total Protein 6.9 G/DL (6.3-8.2) 11/23/17 05:20 Albumin 4.1 g/dL (3.5-5.0) 11/23/17 05:20 Globulin 2.8 gm/dL (2.2-3.9) 11/23/17 05:20 Albumin/Globulin Ratio 1.5 (1.0-2.1) 11/23/17 05:20 TSH 3rd Generation 1.60 mIU/ML (0.46-4.68) 11/22/17 04:20 - Hospital Course Hospital Course: Pt seen and examined at bedside with Dr. Caruso. 77 yo M with pmhx of htn, systolic chf, cad s/p cabg, copd, ckd, and chronic afib admitted for CHF/COPD exacerbation Seen and evaluated by his pedorthist: Dr. Kincaid Pacemaker placed by Dr. Wahl D/c to TCU for continued rehabilitation for transition to home. case Dw Dr. Shady Emmanuel MD PGY2 Discharge Exam - Head Exam Head Exam: NORMAL INSPECTION - Eye Exam Eye Exam: EOMI - Respiratory Exam Respiratory Exam: NORMAL BREATHING PATTERN - Cardiovascular Exam Cardiovascular Exam: +S1, +S2 - GI/Abdominal Exam GI & Abdominal Exam: Normal Bowel Sounds, Soft. absent: Tenderness - Neurological Exam Neurological exam: Alert, CN II-XII Intact, Oriented x3 - Psychiatric Exam Psychiatric exam: Normal Affect, Normal Mood Discharge Plan - Follow Up Plan Condition: FAIR Disposition: HOME/ ROUTINE Patient education suggested?: Yes
[2017-11-23 15:46] VITALS: BP 104/62; PULSE 61; RESP 17; TEMP 98.2
--- NOTE | 2017-11-23 23:29 | CARD ---
APPROVED REPORT Date of service: 11/22/2017 EKG Measurement Heart [id number] <Conclusion> Sinus rhythm with 1st degree AV block with frequent ventricular-paced complexes Nonspecific T wave abnormality Abnormal ECG
== END 2017-11-23 15:55 | DRG 242 ==
LOC: H.ER 11:32 → H.ERHOLD 14:02 → H.TEL 17:04
PROVIDERS: ADMIT Internal Medicine; ATTEND Internal Medicine
PROC: 0JH605Z Insertion of Pacemaker, Single Chamber Rate Responsive into Chest Subcutaneous Tissue and Fascia, Open Approach (ICD-10-PCS; 2017-11-22)
PROC: 02HK3JZ Insertion of Pacemaker Lead into Right Ventricle, Percutaneous Approach (ICD-10-PCS; principal; 2017-11-22 15:00)
DX: I13.0 Hypertensive heart and chronic kidney disease with heart failure and stage 1 through stage 4 chronic kidney disease, or unspecified chronic kidney disease (principal); I50.23 Acute on chronic systolic (congestive) heart failure; J44.1 Chronic obstructive pulmonary disease with (acute) exacerbation; I48.2 Chronic atrial fibrillation; I25.10 Atherosclerotic heart disease of native coronary artery without angina pectoris; Z87.891 Personal history of nicotine dependence; N18.3 Chronic kidney disease, stage 3 (moderate); E78.00 Pure hypercholesterolemia, unspecified; Z79.01 Long term (current) use of anticoagulants; Z95.1 Presence of aortocoronary bypass graft; F03.90 Unspecified dementia, unspecified severity, without behavioral disturbance, psychotic disturbance, mood disturbance, and anxiety; K29.70 Gastritis, unspecified, without bleeding; M19.90 Unspecified osteoarthritis, unspecified site; E66.9 Obesity, unspecified; Z68.37 Body mass index [BMI] 37.0-37.9, adult; D64.9 Anemia, unspecified; I16.0 Hypertensive urgency; R00.1 Bradycardia, unspecified

== ENCOUNTER 2017-12-09 13:16 | Inpatient (IN) | payer MEDICARE, BC ==
[2017-12-09 13:16] VITALS: BMI 38.2
[2017-12-09] MEDS ORDERED: Albuterol-Ipratrop 3 mg / 0.5 (3 ml) UD IH STA (13:44)
--- NOTE | 2017-12-09 13:47 | ED PDOC ---
HPI: SOB/CHF/COPD Time Seen by Provider: 12/09/17 13:33 Chief Complaint (Nursing): Shortness Of Breath History Per: Patient Onset/Duration Of Symptoms: Days (1) Current Symptoms Are (Timing): Intermittent Episodes Current Respiratory Medications: See Home Med List Severity: Mild Additional Complaint(s): SOB x 2 episodes earlier today. Resolved spontaneously. Denies chest pain or cough. No fever. Mild swelling lower ext. Denies calf pain Past Medical History Vital Signs: Last Vital Signs Temp 98.3 F 12/09/17 13:19 Pulse 67 12/09/17 13:19 Resp 21 12/09/17 13:19 BP 143/67 12/09/17 13:19 Pulse Ox 97 12/09/17 13:19 - Medical History PMH: Anemia, Arthritis, Atrial Fibrillation, Bronchitis, CAD, CHF, COPD, CVA (mild), Dementia, Diabetes (type II), Emphysema, Gastritis, HTN, Hypercholesterolemia, Peripheral Edema, Pneumonia, Chronic Kidney Disease (CKD) Denies: HIV - Surgical History Surgical History: CABG (in 2005), Pacemaker (11/2017) - Family History Family History: States: Unknown Family Hx, CAD, Diabetes (father) - Immunization History Hx Tetanus Toxoid Vaccination: No Hx Influenza Vaccination: Yes Hx Pneumococcal Vaccination: No - Home Medications Home Medications: Ambulatory Orders Medication Instructions Recorded Apixaban [Eliquis] 5 mg PO Q12 11/17/17 Losartan/Hydrochlorothiazide 1 tab PO DAILY 11/17/17 [Hyzaar 100-25 Tablet] amLODIPine [Norvasc] 10 mg PO DAILY 11/17/17 Albuterol/Ipratropium [Duoneb 3 3 ml INH RQID neb 11/23/17 mg/0.5 mg (3 ml) UD] Aspirin [Ecotrin] 81 mg PO DAILY tabec 11/23/17 Atorvastatin [Lipitor] 40 mg PO DAILY tab 11/23/17 Carvedilol [Coreg] 6.25 mg PO Q12 tab 11/23/17 Folic Acid 1 mg PO DAILY tab 11/23/17 Isosorbide Mononitrate ER [Imdur 30 mg PO DAILY tab 11/23/17 ER] Lidocaine 5% [Lidoderm] 1 ea TD DAILY patch 11/23/17 - Allergies Allergies/Adverse Reactions: Allergies Allergy/AdvReac Type Severity Reaction Status Date / Time No Known Allergies Allergy Verified 11/23/17 15:57 Review of Systems ROS Statement: Except As Marked, All Systems Reviewed And Found Negative Respiratory: Positive for: Shortness of Breath Physical Exam - Reviewed Nursing Documentation Reviewed: Yes Vital Signs Reviewed: Yes - Physical Exam Appears: Positive for: Non-toxic, No Acute Distress Head Exam: Positive for: ATRAUMATIC, NORMAL INSPECTION, NORMOCEPHALIC Skin: Positive for: Normal Color, Warm, DRY Eye Exam: Positive for: EOMI, Normal appearance, PERRL ENT: Positive for: Normal ENT Inspection Neck: Positive for: Normal, Painless ROM Cardiovascular/Chest: Positive for: Regular Rate, Rhythm Respiratory: Positive for: Decreased Breath Sounds. Negative for: Rales, Wheezing, Respiratory Distress Gastrointestinal/Abdominal: Positive for: Normal Exam, Soft Back: Positive for: Normal Inspection Extremity: Positive for: Normal ROM, Swelling. Negative for: Tenderness, Calf Tenderness Neurologic/Psych: Positive for: Alert, Oriented - Laboratory Results Result Diagrams: 12/09/17 14:02 12/09/17 14:02 - ECG O2 Sat by Pulse Oximetry: 97 Disposition - Clinical Impression Clinical Impression: CHF (congestive heart failure), COPD (chronic obstructive pulmonary disease), CKD (chronic kidney disease) - Patient ED Disposition Is Patient to be Admitted: Yes - Disposition Disposition Time: 15:14 Condition: FAIR Forms: [employer] (Macedonian) - Pt Status Changed To: Hospital Disposition Of: Observation - POA Present On Arrival: None
[2017-12-09] MEDS ORDERED: Albuterol-Ipratrop 3 mg / 0.5 (3 ml) UD ONE (13:59)
[2017-12-09 14:34] LABS: BASO # 0.1 K/uL (0.0-0.2); BASO % 0.7 % (0.0-2.0); EOS # 0.3 K/uL (0.0-0.7); EOS % 3.7 % (0.0-4.0); LYMPH % 12.2 % (20.0-40.0); MEAN CELL VOLUME 93.1 fl (80.0-94.0); MEAN CORPUSCULAR HGB CONC 33.3 g/dL (33.0-37.0); MEAN PLATELET VOLUME 9.1 fl (7.2-11.7); MONO % 12.2 % (0.0-10.0); NEUT # 5.7 K/uL (1.8-7.0); NEUT % 71.2 % (50.0-75.0); RBC 3.55 Mil/uL (4.40-5.90); RED CELL DISTRIBUTION WIDTH 13.8 % (11.5-14.5); WHITE BLOOD COUNT 8.1 K/uL (4.8-10.8)
--- NOTE | 2017-12-09 14:40 | RAD ---
Date of service: 12/09/2017 HISTORY: SOB COMPARISON: Chest radiograph dated 11/22/2017. TECHNIQUE: Chest PA and lateral FINDINGS: LUNGS: No active pulmonary disease. PLEURA: No significant pleural effusion identified. No pneumothorax apparent. CARDIOVASCULAR: Right subclavian access single lead pacemaker redemonstrated. Prior sternotomy with sternal wires and surgical clips redemonstrated atherosclerotic aortic calcifications. Cardiomediastinal silhouette stably enlarged. OSSEOUS STRUCTURES: Unchanged. VISUALIZED UPPER ABDOMEN: Normal. OTHER FINDINGS: None. IMPRESSION: No active disease.
[2017-12-09 15:00] LABS: B-TYPE NATRIURETIC PEPTIDE 1990 pg/ml (0-900)
[2017-12-09 15:01] LABS: ALB/GLOB RATIO 1.3 (1.0-2.1); ALT/SGPT 34 U/L (21-72); AST/SGOT 23 U/L (17-59); BLOOD UREA NITROGEN 26 mg/dl (9-20); CALCIUM 8.7 mg/dL (8.4-10.2); GFR NON-AFRICAN AMERICAN 54
--- NOTE | 2017-12-09 18:30 | CARD ---
APPROVED REPORT Date of service: 12/09/2017 EKG Measurement Heart [id number] <Conclusion> Ventricular-paced rhythm Abnormal ECG
[2017-12-09] MEDS: Albuterol-Ipratrop 3 mg / 0.5 (3 ml) UD INH SCH (19:08)
[2017-12-10] MEDS ORDERED: Influenza Vaccine 60 MCG/0.5 ML SYR (3 yr & up) IM ONE (06:30)
[2017-12-10 06:34] LABS: HEMOGLOBIN 10.6 g/dL (12.0-18.0); MEAN CELL VOLUME 92.1 fl (80.0-94.0); MEAN CORPUSCULAR HEMOGLOBIN 31.6 pg (27.0-31.0); MEAN CORPUSCULAR HGB CONC 34.3 g/dL (33.0-37.0); RBC 3.36 Mil/uL (4.40-5.90); RED CELL DISTRIBUTION WIDTH 13.9 % (11.5-14.5); WHITE BLOOD COUNT 8.3 K/uL (4.8-10.8)
[2017-12-10 06:49] LABS: ALB/GLOB RATIO 1.3 (1.0-2.1); ALBUMIN 3.6 g/dL (3.5-5.0); CALCIUM 8.7 mg/dL (8.4-10.2)
[2017-12-10] MEDS: Albuterol-Ipratrop 3 mg / 0.5 (3 ml) UD INH SCH ×4 (07:45→20:41)
[2017-12-10] MEDS: Lidocaine 5% Patch TD SCH (08:47)
--- NOTE | 2017-12-10 12:55 | CP.PCM.CON ---
History of Present Illness - History of Present Illness History of Present Illness: I was asked to evaluate patient by Dr Caruso. Patient is a 77 year old male with a history of CAD s/p CABG, HTN, hypercholesterolemia, afib, PPM, COPD who presents with dyspnea. Thien was recently diischarged from rehab after placement of PPM. He was at home when he says he developed dizziness. He was found to have a mildly elevated pro BNP. Patient was not discharged on lasix due to elevated creatinine. Patient states he felt cough and dizziness. Review of Systems - Constitutional Constitutional: absent: As Per HPI, Anorexia, Chills, Daytime Sleepiness, Ex cessive Sweating, Fatigue, Fever, Frequent Falls, Headache, Increased Appetite, Lethargy, Malaise, Night Sweats, Snoring, Sleep Apnea, Weight Gain, Weight Loss, Weakness, Other - EENT Eyes: absent: As Per HPI, Blind Spots, Blurred Vision, Change in Vision, Decr eased Night Vision, Diplopia, Discharge, Dry Eye, Exophthalmos, Floaters, Irritation, Itchy Eyes, Loss of Peripheral Vision, Pain, Photophobia, Requires Corrective Lenses, Sees Flashes, Spots in Vision, Tunnel Vision, Other Visual Disturbances, Loss of Vision, Other Ears: absent: As Per HPI, Decreased Hearing, Ear Discharge, Ear Pain, Tinnitus, Abnormal Hearing, Disequilibrium, Dizziness, Other Nose/Mouth/Throat: absent: As Per HPI, Epistaxis, Nasal Congestion, Nasal Discharge, Nasal Obstruction, Nasal Trauma, Nose Pain, Post Nasal Drip, Sinus Pain, Sinus Pressure, Bleeding Gums, Change in Voice, Dental Pain, Dry Mouth, Dysphagia, Halitosis, Hoarsness, Lip Swelling, Mouth Lesions, Mouth Pain, Odynophagia, Sore Throat, Throat Swelling, Tongue Swelling, Facial Pain, Neck Pain, Neck Mass, Other - Cardiovascular Cardiovascular: Dyspnea - Respiratory Respiratory: Dyspnea - Gastrointestinal Gastrointestinal: absent: As Per HPI, Abdominal Pain, Belching, Bloating, Change in Bowel Habits, Change in Stool Character, Coffee Ground Emesis, Constipation, Cramping, Diarrhea, Dyspepsia, Dysphagia, Early Satiety, Excessive Flatus, Fecal Incontinence, Heartburn, Hematemesis, Hematochezia, Loose Stools, Melena, Nausea, Odynophagia, Temesmus, Vomiting, Other - Genitourinary Genitourinary: absent: As Per HPI, Change in Urinary Stream, Difficulty Urinating, Dysuria, Flank Pain, Hematuria, Pyuria, Nocturia, Urinary Incontinence, Urinary Frequency, Urinary Hesitance, Urinary Urgency, Voiding Freq/Small Amts, Freq UTI, Hx Renal/Bladder Calculi, Hx /Renal Surgery, Bladder Distension, Other - Musculoskeletal Musculoskeletal: absent: As Per HPI, Abnormal Gait, Arthralgias, Atrophy, Back Pain, Deformity, Joint Swelling, Limited Range of Motion, Loss of Height, Muscle Cramps, Muscle Weakness, Myalgias, Neck Pain, Numbness, Radiating Pain into Limb, Stiffness, Tingling, Other - Integumentary Integumentary: absent: As Per HPI, Acne, Alopecia, Bleeding Lesions, Change in Hair, Change in Nails, Change in Pigmentation, Changing Lesions, Dry Skin, Erythema, Furuncle, Hirsutism, Lesions, New Lesions, Non-Healing Lesions, Photosensitivity, Pruritus, Rash, Skin Pain, Skin Ulcer, Sores, Striae, Swelling, Unusual Bruising, Wounds, Jaundice, Other - Neurological Neurological: absent: As Per HPI, Abnormal Gait, Abnormal Hearing, Abnormal Movements, Abnormal Speech, Behavioral Changes, Burning Sensations, Confusion, Convulsions, Disequilibrium, Dizziness, Numbness, Focal Weakness, Frequent Falls, Headaches, Lack of Coordination, Loss of Vision, Memory Loss, Paresthesias, Radicular Pain, Restless Legs, Sensory Deficit, Syncope, Tingling, Tremor, Vertigo, Weakness, Other Visual Disturbances, Other - Psychiatric Psychiatric: absent: As Per HPI, Abnormal Sleep Pattern, Anhedonia, Anxiety, Auditory Hallucinations, Behavioral Changes, Change in Appetite, Change in Libido, Confusion, Depression, Difficulty Concentrating, Hallucinations, Homicidal Ideation, Hopelessness, Irritability, Memory Loss, Mood Swings, Panic Attacks, Paranoia, Suicidal Ideation, Visual Hallucinations, Tactile Hallucinations, Other - Endocrine Endocrine: absent: As Per HPI, Change in Body Appearance, Change in Libido, Cold Intolorance, Deepening of Voice, Excessive Sweating, Fatigue, Flushing, Heat Intolorance, Increase in Ring/Shoe/Hat Size, Palpitations, Polydipsia, Polyphagia, Polyuria, Other - Hematologic/Lymphatic Hematologic: absent: As Per HPI, Easy Bleeding, Easy Bruising, Lymphadenopathy, Other Past Patient History - Infectious Disease Hx of Infectious Diseases: None - Tetanus Immunizations Tetanus Immunization: Unknown - Past Medical History & Family History Past Medical History?: Yes - Past Social History Smoking Status: Former Smoker - CARDIAC Hx Atrial Fibrillation: Yes Hx Congestive Heart Failure: Yes Hx Hypercholesterolemia: Yes Hx Hypertension: Yes Hx Pacemaker: Yes (11/2017) Hx Peripheral Edema: Yes - PULMONARY Hx Bronchitis: Yes Hx Chronic Obstructive Pulmonary Disease (COPD): Yes Hx Emphysema: Yes Hx Pneumonia: Yes - NEUROLOGICAL Hx Dementia: Yes - HEENT Hx HEENT Problems: No - RENAL Hx Chronic Kidney Disease: Yes (CKD) - ENDOCRINE/METABOLIC Hx Endocrine Disorders: No - HEMATOLOGICAL/ONCOLOGICAL Hx Anemia: Yes Hx Human Immunodeficiency Virus (HIV): No - INTEGUMENTARY Hx Dermatological Problems: No - MUSCULOSKELETAL/RHEUMATOLOGICAL Hx Falls: No - GASTROINTESTINAL Hx Gastritis: Yes - GENITOURINARY/GYNECOLOGICAL Hx Genitourinary Disorders: No - PSYCHIATRIC Hx Substance Use: No - SURGICAL HISTORY Hx Coronary Artery Bypass Graft: Yes (in 2005) - ANESTHESIA Hx Anesthesia: Yes Hx Anesthesia Reactions: No Hx Malignant Hyperthermia: No Meds Allergies/Adverse Reactions: Allergies Allergy/AdvReac Type Severity Reaction Status Date / Time No Known Allergies Allergy Verified 11/23/17 15:57 - Medications Medications: Current Medications Albuterol/Ipratropium (Duoneb 3 Mg/0.5 Mg (3 Ml) Ud) 3 ml INH RQID [facility] Last Admin: 12/10/17 10:57 Dose: 3 ml Amlodipine Besylate (Norvasc) 10 mg PO DAILY [facility] Last Admin: 12/10/17 08:46 Dose: 10 mg Apixaban (Eliquis) 5 mg PO Q12 [facility]; Protocol Last Admin: 12/10/17 08:44 Dose: 5 mg Aspirin (Ecotrin) 81 mg PO DAILY [facility] Last Admin: 12/10/17 08:47 Dose: 81 mg Atorvastatin Calcium (Lipitor) 40 mg PO DAILY [facility] Last Admin: 12/10/17 08:47 Dose: 40 mg Carvedilol (Coreg) 6.25 mg PO Q12 [facility] Last Admin: 12/10/17 08:45 Dose: 6.25 mg Folic Acid (Folic Acid) 1 mg PO DAILY [facility] Last Admin: 12/10/17 08:45 Dose: 1 mg Furosemide (Lasix) 40 mg IVP BID [facility] Last Admin: 12/10/17 08:46 Dose: 40 mg HCTZ/Losartan Potassium (Hyzaar 12.5 Mg-50 Mg) 2 tab PO DAILY [facility] Isosorbide Mononitrate (Imdur Er) 30 mg PO DAILY [facility] Lidocaine (Lidoderm) 1 ea TD DAILY [facility] Last Admin: 12/10/17 08:47 Dose: 1 ea Physical Exam - Constitutional Appears: Non-toxic - Head Exam Head Exam: NORMAL INSPECTION - Eye Exam Eye Exam: Normal appearance - ENT Exam ENT Exam: Mucous Membranes Moist - Neck Exam Neck exam: Positive for: Normal Inspection - Respiratory Exam Respiratory Exam: NORMAL BREATHING PATTERN - Cardiovascular Exam Cardiovascular Exam: REGULAR RHYTHM - GI/Abdominal Exam GI & Abdominal Exam: Normal Bowel Sounds - Rectal Exam Rectal Exam: Deferred - Extremities Exam Extremities exam: Negative for: pedal edema - Back Exam Back exam: NORMAL INSPECTION - Neurological Exam Neurological exam: Alert, Oriented x3 - Psychiatric Exam Psychiatric exam: Normal Affect - Skin Skin Exam: Normal Color Results - Vital Signs Recent Vital Signs: Last Vital Signs Temp 98.5 F 12/10/17 12:19 Pulse 62 12/10/17 12:19 Resp 22 12/10/17 12:19 BP 134/68 12/10/17 12:19 Pulse Ox 98 12/10/17 12:19 - Labs Result Diagrams: 12/10/17 05:40 12/10/17 05:40 Labs: Laboratory Results - last 24 hr 12/09/17 12/09/17 12/09/17 14:02 14:02 17:11 WBC 8.1 RBC 3.55 L Hgb 11.0 L Hct 33.0 L MCV 93.1 MCH 31.0 MCHC 33.3 RDW 13.8 Plt Count 180 MPV 9.1 Neut % (Auto) 71.2 Lymph % (Auto) 12.2 L [place] % (Auto) 12.2 H Eos % (Auto) 3.7 Baso % (Auto) 0.7 Neut # (Auto) 5.7 Lymph # (Auto) 1.0 [place] # (Auto) 1.0 H Eos # (Auto) 0.3 Baso # (Auto) 0.1 Sodium 139 Potassium 4.9 Chloride 103 Carbon Dioxide 30 Anion Gap 11 BUN 26 H Creatinine 1.3 Est GFR ( Amer) > 60 Est GFR (Non-Af Amer) 54 POC Glucose (mg/dL) 129 H Random Glucose 151 H Calcium 8.7 Total Bilirubin 0.8 AST 23 ALT 34 Alkaline Phosphatase 91 Troponin I < 0.0120 NT-Pro-B Natriuret Pep 1990 H Total Protein 7.0 Albumin 4.0 Globulin 3.0 Albumin/Globulin Ratio 1.3 12/10/17 12/10/17 05:40 05:40 WBC 8.3 RBC 3.36 L Hgb 10.6 L Hct 31.0 L MCV 92.1 MCH 31.6 H MCHC 34.3 RDW 13.9 Plt Count 178 MPV Neut % (Auto) Lymph % (Auto) [place] % (Auto) Eos % (Auto) Baso % (Auto) Neut # (Auto) Lymph # (Auto) [place] # (Auto) Eos # (Auto) Baso # (Auto) Sodium 139 Potassium 4.4 Chloride 99 Carbon Dioxide 33 H Anion Gap 11 BUN 28 H Creatinine 1.5 Est GFR ( Amer) 55 Est GFR (Non-Af Amer) 46 POC Glucose (mg/dL) Random Glucose 126 H Calcium 8.7 Total Bilirubin 1.0 AST 24 ALT 35 Alkaline Phosphatase 78 Troponin I NT-Pro-B Natriuret Pep Total Protein 6.5 Albumin 3.6 Globulin 2.9 Albumin/Globulin Ratio 1.3 - EKG Data EKG Interpreted by: Myself Assessment & Plan (1) Acute on 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 Assessment and Plan: improved with diuretic. will change to low dose oral lasix . blood pressure control. likely d/c in am Status: Acute (2) Atrial fibrillation Assessment and Plan: continue Eliquis. Status: Chronic Priority: High (3) HTN (hypertension) Assessment and Plan: continue blood pressure control. Status: Chronic
[2017-12-10] MEDS: HCTZ/Losartan 12.5/50 Tab PO SCH (13:13)
--- NOTE | 2017-12-10 19:21 | HP ---
CHIEF COMPLAINT: Shortness of breath. HISTORY OF PRESENT ILLNESS: This is a 77-year-old male, known case of systolic congestive heart failure, coronary artery disease, status post CABG, COPD, atrial fibrillation, and CKD, who was recently discharged from the hospital. The patient was noncompliant with medication. The patient was also seen by computer engineering technologist and due to evaluated BUN and creatinine, Lasix was apparently held and the patient started having shortness of breath. The patient was brought to emergency room and was admitted for further management. The patient is a very poor historian and the history and review of system is not reliable. PAST MEDICAL HISTORY: Significant for coronary artery disease, congestive heart failure, hypertension, COPD, atrial fibrillation, CKD, and obesity. PAST SURGICAL HISTORY: Remarkable for coronary artery bypass graft. PERSONAL HISTORY: The patient is currently nonsmoker, nondrinker. No substance abuse. MEDICATIONS: The patient is on multiple medications, which is as per reconciliation sheet, which were reviewed and ordered. ALLERGIES: THE PATIENT IS NOT ALLERGIC TO ANY MEDICATIONS. FAMILY HISTORY: Noncontributory. PHYSICAL EXAMINATION: GENERAL: Well-built, well-nourished, overweight 77-year-old male, in no acute distress. VITAL SIGNS: Temperature 97.9, pulse 59, respirations 19, blood pressure 134/66. HEENT: Pupils are reacting to light. No JVD. No thyromegaly. No lymphadenopathy. No nystagmus. Normocephalic, atraumatic skull. HEART: S1 and S2, normal and regular. No significant murmur, gallop, or rub is heard. LUNGS: Shows good bilateral air exchange. The patient has some bibasilar crepitations at the bases. ABDOMEN: Soft and nontender. No organomegaly. No fluid. Bowel sounds are plus and normal. EXTREMITIES: The patient has 2 to 3+ pitting edema. No calf swelling. No tenderness. No acute ischemia. CRM CAMPAIGN MANAGER: The patient is alert, awake, and oriented. There is no sign of any acute gross focal motor or sensory or neurological deficit. DIAGNOSTIC DATA: Available diagnostic data reviewed. WBC 8.4, hemoglobin 11, hematocrit 33, and platelets 180. Sodium 149, potassium 4.9, chloride 103, bicarb 30, BUN 26, creatinine 1.3. SMA-12 is unremarkable. ProBNP level is 1989. Chest x-ray showed some congestion. EKG does not reveal any acute new changes. The patient is on ventricularly paced rhythm. ADMITTING IMPRESSION: Decompensated acute on chronic systolic heart failure, coronary artery disease, chronic obstructive pulmonary disease, and hypertension. PLAN: As ordered. Case and plan discussed with the patient. Joel Caruso MD
[2017-12-11 07:11] LABS: HEMOGLOBIN 10.5 g/dL (12.0-18.0); MEAN CELL VOLUME 92.6 fl (80.0-94.0); MEAN CORPUSCULAR HEMOGLOBIN 31.5 pg (27.0-31.0); RBC 3.33 Mil/uL (4.40-5.90); RED CELL DISTRIBUTION WIDTH 13.6 % (11.5-14.5); WHITE BLOOD COUNT 7.5 K/uL (4.8-10.8)
[2017-12-11 07:52] LABS: ALB/GLOB RATIO 1.3 (1.0-2.1); ALBUMIN 3.6 g/dL (3.5-5.0); CALCIUM 8.5 mg/dL (8.4-10.2)
[2017-12-11] MEDS: Albuterol-Ipratrop 3 mg / 0.5 (3 ml) UD INH SCH ×4 (08:00→19:18)
[2017-12-11] MEDS: Lidocaine 5% Patch TD SCH (09:05)
--- NOTE | 2017-12-11 11:07 | CP.PCM.PN ---
Subjective - Date & Time of Evaluation Date of Evaluation: 12/11/17 Time of Evaluation: 10:55 - Subjective Subjective: patient has no chest pain or dsypnea. Objective - Vital Signs/Intake and Output Vital Signs (last 24 hours): Temp Pulse Resp BP Pulse Ox 97.4 F L 98 H 20 139/70 100 12/11/17 08:00 12/11/17 09:05 12/11/17 08:00 12/11/17 09:05 12/11/17 08:00 - Medications Medications: Current Medications Acetaminophen (Tylenol 325mg Tab) 650 mg PO Q6 PRN PRN Reason: Pain, Mild (1-3) Last Admin: 12/10/17 22:56 Dose: 650 mg Albuterol/Ipratropium (Duoneb 3 Mg/0.5 Mg (3 Ml) Ud) 3 ml INH RQID [facility] Last Admin: 12/11/17 08:00 Dose: 3 ml Amlodipine Besylate (Norvasc) 10 mg PO DAILY [facility] Last Admin: 12/11/17 09:05 Dose: 10 mg Apixaban (Eliquis) 5 mg PO Q12 [facility]; Protocol Last Admin: 12/11/17 09:03 Dose: 5 mg Aspirin (Ecotrin) 81 mg PO DAILY [facility] Last Admin: 12/11/17 09:04 Dose: 81 mg Atorvastatin Calcium (Lipitor) 40 mg PO DAILY [facility] Last Admin: 12/11/17 09:04 Dose: 40 mg Carvedilol (Coreg) 6.25 mg PO Q12 [facility] Last Admin: 12/11/17 09:04 Dose: 6.25 mg Folic Acid (Folic Acid) 1 mg PO DAILY [facility] Last Admin: 12/11/17 09:04 Dose: 1 mg Furosemide (Lasix) 20 mg PO DAILY [facility] Last Admin: 12/11/17 09:04 Dose: 20 mg HCTZ/Losartan Potassium (Hyzaar 12.5 Mg-50 Mg) 2 tab PO DAILY [facility] Last Admin: 12/10/17 13:13 Dose: 2 tab Isosorbide Mononitrate (Imdur Er) 30 mg PO DAILY [facility] Last Admin: 12/10/17 13:13 Dose: 30 mg Lidocaine (Lidoderm) 1 ea TD DAILY [facility] Last Admin: 12/11/17 09:05 Dose: Not Given - Labs Labs: 12/11/17 06:32 12/11/17 06:32 - Constitutional Appears: Non-toxic - Head Exam Head Exam: NORMAL INSPECTION - Eye Exam Eye Exam: Normal appearance - ENT Exam ENT Exam: Mucous Membranes Moist - Neck Exam Neck Exam: Full ROM - Respiratory Exam Respiratory Exam: Decreased Breath Sounds, NORMAL BREATHING PATTERN - Cardiovascular Exam Cardiovascular Exam: REGULAR RHYTHM - GI/Abdominal Exam GI & Abdominal Exam: Normal Bowel Sounds - Rectal Exam Rectal Exam: Deferred - Extremities Exam Extremities Exam: absent: Pedal Edema - Back Exam Back Exam: NORMAL INSPECTION - Neurological Exam Neurological Exam: Alert, Awake, Oriented x3 - Psychiatric Exam Psychiatric exam: Normal Affect - Skin Skin Exam: Normal Color Assessment and Plan (1) Acute on 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 Assessment & Plan: improved. changed to po lasix yesterday. Status: Acute (2) Atrial fibrillation Assessment & Plan: continue Eliquis Status: Chronic (3) HTN (hypertension) Assessment & Plan: better control Status: Chronic (4) CKD (chronic kidney disease) Assessment & Plan: increase in creatinine most likley reflective of IV lasix given. patient will require small dose of lasix which I changed yesterday. Status: Acute
--- NOTE | 2017-12-11 12:25 | PN ---
DATE: 12/11/2017 SUBJECTIVE: The patient is seen and examined. Interim events noted. Consults noted and appreciated. Cardiology followup and interventions noted and appreciated. The patient remains in progressive care unit, on telemetry monitoring. The patient is sleeping, arousable, feels okay. Breathing improved. No chest pain. No shortness of breath addressed. PHYSICAL EXAMINATION: GENERAL: The patient is in no acute distress. VITAL SIGNS: Stable. HEART: S1 and S2, normal and regular. LUNGS: Good bilateral air exchange. ABDOMEN: Soft and nontender. EXTREMITIES: The patient still has pitting edema, but it seems still there. COMPUTER FORENSICS TECHNICIAN: Exam is essentially unchanged. DIAGNOSTIC DATA: Available diagnostic data reviewed. Telemetry monitoring does not show significant arrhythmia. Pacemaker is functioning okay. ASSESSMENT AND PLAN: Overall, the patient is still improving. Plan as ordered. Joel Caruso MD
[2017-12-11] MEDS: HCTZ/Losartan 12.5/50 Tab PO SCH (13:00)
[2017-12-12 05:43] LABS: ALB/GLOB RATIO 1.3 (1.0-2.1); ALBUMIN 3.7 g/dL (3.5-5.0); CALCIUM 8.4 mg/dL (8.4-10.2); HEMOGLOBIN 10.5 g/dL (12.0-18.0); MEAN CELL VOLUME 91.9 fl (80.0-94.0); MEAN CORPUSCULAR HEMOGLOBIN 31.5 pg (27.0-31.0); MEAN CORPUSCULAR HGB CONC 34.3 g/dL (33.0-37.0); RBC 3.35 Mil/uL (4.40-5.90); RED CELL DISTRIBUTION WIDTH 13.7 % (11.5-14.5); WHITE BLOOD COUNT 7.9 K/uL (4.8-10.8)
[2017-12-12] MEDS: Albuterol-Ipratrop 3 mg / 0.5 (3 ml) UD INH SCH ×4 (07:58→19:22)
[2017-12-12] MEDS: Lidocaine 5% Patch TD SCH (08:06)
[2017-12-12] MEDS ORDERED: Influenza Vaccine 60 MCG/0.5 ML SYR (3 yr & up) IM ONE (09:00)
[2017-12-12] MEDS: HCTZ/Losartan 12.5/50 Tab PO SCH (11:44)
[2017-12-12 12:38] LABS: CALCIUM 8.4 mg/dL (8.4-10.2)
--- NOTE | 2017-12-12 13:29 | PN ---
DATE: 12/12/2017 SUBJECTIVE: The patient seen and examined. Interim events noted. Consults noted and appreciated. Cardiology followup and intervention noted and appreciated. The patient remains in progressive care unit, on telemetry monitoring. The patient is sleeping, arousable, feels okay. No chest shortness of breath. PHYSICAL EXAMINATION: GENERAL: The patient is in no acute distress. VITAL SIGNS: Stable. HEART: S1 and S2, normal and regular. LUNGS: Good bilateral air exchange. ABDOMEN: Soft, nontender. EXTREMITIES: No edema. No calf swelling. No tenderness. No acute ischemia. IN HOME NANNY: Exam is essentially unchanged. DIAGNOSTIC DATA: Available diagnostic data reviewed. Telemetry monitoring does not reveal significant arrhythmias. ASSESSMENT AND PLAN: Overall, the patient's general medical condition is improving. Plan as ordered. Case and plan discussed with the patient. Joel Caruso MD
--- NOTE | 2017-12-12 17:57 | CP.PCM.PN ---
Subjective - Date & Time of Evaluation Date of Evaluation: 12/12/17 Time of Evaluation: 17:35 - Subjective Subjective: Patient has no chest pain or dyspnea Objective - Vital Signs/Intake and Output Vital Signs (last 24 hours): Temp Pulse Resp BP Pulse Ox 97.7 F 62 20 116/69 96 12/12/17 15:36 12/12/17 15:36 12/12/17 15:36 12/12/17 15:36 12/12/17 15:36 - Medications Medications: Current Medications Acetaminophen (Tylenol 325mg Tab) 650 mg PO Q6 PRN PRN Reason: Pain, Mild (1-3) Last Admin: 12/11/17 20:58 Dose: 650 mg Albuterol/Ipratropium (Duoneb 3 Mg/0.5 Mg (3 Ml) Ud) 3 ml INH RQID [facility] Last Admin: 12/12/17 15:35 Dose: 3 ml Amlodipine Besylate (Norvasc) 10 mg PO DAILY [facility] Last Admin: 12/12/17 11:42 Dose: 10 mg Apixaban (Eliquis) 5 mg PO Q12 [facility]; Protocol Last Admin: 12/12/17 08:05 Dose: 5 mg Aspirin (Ecotrin) 81 mg PO DAILY [facility] Last Admin: 12/12/17 08:05 Dose: 81 mg Atorvastatin Calcium (Lipitor) 40 mg PO DAILY [facility] Last Admin: 12/12/17 08:03 Dose: 40 mg Carvedilol (Coreg) 6.25 mg PO Q12 [facility] Last Admin: 12/12/17 11:41 Dose: 6.25 mg Folic Acid (Folic Acid) 1 mg PO DAILY [facility] Last Admin: 12/12/17 08:06 Dose: 1 mg Furosemide (Lasix) 20 mg PO DAILY [facility] Last Admin: 12/12/17 08:05 Dose: 20 mg HCTZ/Losartan Potassium (Hyzaar 12.5 Mg-50 Mg) 2 tab PO DAILY [facility] Last Admin: 12/12/17 11:44 Dose: Not Given Isosorbide Mononitrate (Imdur Er) 30 mg PO DAILY [facility] Last Admin: 12/12/17 11:43 Dose: 30 mg Lidocaine (Lidoderm) 1 ea TD DAILY [facility] Last Admin: 12/12/17 08:06 Dose: 1 ea - Labs Labs: 12/12/17 04:20 12/12/17 12:19 - Constitutional Appears: Non-toxic - Head Exam Head Exam: NORMAL INSPECTION - Eye Exam Eye Exam: Normal appearance - ENT Exam ENT Exam: Mucous Membranes Moist - Neck Exam Neck Exam: Full ROM - Respiratory Exam Respiratory Exam: NORMAL BREATHING PATTERN - Cardiovascular Exam Cardiovascular Exam: REGULAR RHYTHM - GI/Abdominal Exam GI & Abdominal Exam: Normal Bowel Sounds - Rectal Exam Rectal Exam: Deferred - Extremities Exam Extremities Exam: absent: Pedal Edema - Back Exam Back Exam: NORMAL INSPECTION - Neurological Exam Neurological Exam: Alert - Psychiatric Exam Psychiatric exam: Normal Affect - Skin Skin Exam: Normal Color Assessment and Plan (1) 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 recommend continued medical therapy Status: Acute (2) Atrial fibrillation Assessment & Plan: cont Eliquis Status: Chronic (3) HTN (hypertension) Status: Chronic (4) CKD (chronic kidney disease) Assessment & Plan: monitor creatinine Status: Acute
[2017-12-13 00:08] VITALS: RESP 18
[2017-12-13] MEDS: Albuterol-Ipratrop 3 mg / 0.5 (3 ml) UD INH SCH ×2 (07:10→11:34)
[2017-12-13] MEDS ORDERED: Influenza Vaccine 60 MCG/0.5 ML SYR (3 yr & up) IM ONE (08:14)
[2017-12-13] MEDS: Lidocaine 5% Patch TD SCH (08:39)
[2017-12-13 12:19] VITALS: BP 119/67; PULSE 66; TEMP 97.4; O2SAT 98
--- NOTE | 2017-12-13 12:41 | PN ---
DATE: 12/13/2017 SUBJECTIVE: The patient seen and examined. Interm events noted. Consults noted and appreciated. Cardiology followup and intervention noted and appreciated. The patient remains in progressive care unit, on telemetry monitoring. The patient feels okay. Denies any chest pain or shortness of breath. PHYSICAL EXAMINATION: GENERAL: The patient is in no acute distress. VITAL SIGNS: Stable. HEART: S1 and S2. Normal and regular. LUNGS: Good bilateral air exchange. ABDOMEN: Soft and nontender. EXTREMITIES: The patient has chronic edema essentially unchanged from yesterday. 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 DIAGNOSTIC DATA: Available diagnostic data reviewed. Telemetry monitoring does not reveal significant arrhythmia. ASSESSMENT AND PLAN: Overall, the patient's general medical condition is stable. Plan as ordered. Joel Caruso MD
--- NOTE | 2017-12-13 13:14 | IP.NPCORE ---
Heart Failure Core Measure - Heart Failure Ejection Fraction: 40 % or Greater Beta-Rom Prescribed: Carvedilol Angiotensin II Receptor Rom Prescribed: Yes AnticoagulationTherapy for Atrial Fibrillation/Atrialflutter: Yes - Follow up Will be discharged to: Home Follow Up Date (must be within 7 days from discharge): 12/20/17 (dr alvares) Follow Up Time: 09:00
--- NOTE | 2017-12-16 06:57 | PQF ---
PROVIDER RESPONSE TEXT: Ac on chr systolic chf REVIEWER QUERY TEXT: Conflicting Documentation Clarification Please clarify the type of Decompensated CHF: Systolic versus Diastolic or both? -- Other, please specify H and P; Admitting Impression: Decompensated acute on chronic systolic heart failure, coronary arter y disease, chronic obstructive pulmonary disease, and hypertension. Assessment and Plan: improved with diuretic. will change to low dose oral lasix . blood pressure co ntrol. likely d/c in am Status: Acute The patient's Clinical Indicators include: xx Query created by: Celestina Whaley 12/13/2017 9:57 AM Electronically signed by: Joel Caruso 12/16/2017 6:54 AM
--- NOTE | 2017-12-16 06:57 | PQF ---
PROVIDER RESPONSE TEXT: CKD stage 2 REVIEWER QUERY TEXT: Kidney Disease, Chronic CKD Stage Chronic Kidney Disease (CKD) is documented in the Medical Record. Please specify the disease stage ( includes probable or suspected) Such as: -- Chronic kidney disease Stage 1 -- Chronic kidney disease Stage 2 -- Chronic kidney disease Stage 3 -- Chronic kidney disease Stage 4 -- Chronic kidney disease Stage 5 -- Chronic kidney disease Stage 5, requiring dialysis -- End Stage Renal Disease -- Other, please specify BUN:26->28->36->42->41 Creatinine:1.3->1.5->1.7->1.8->1.7 Est GFR ( Amer/Non Af Amer): >60/54->55/46->48/39->45/37->48/39 H and P: hx. includes; CKD-- case of systolic congestive heart failure, coronary artery disease, stat us post CABG, COPD, atrial fibrillation, and CKD, who was recently discharged from the hospital. The patient was noncompliant with medication. The patient was also seen by size maker and due to eval uated BUN and creatinine, Lasix was apparently held and the patient started having shortness of marva th. ADMITTING IMPRESSION:Decompensated acute on chronic systolic heart failure, coronary artery disease, chronic obstructive pulmonary disease, and hypertension. 12/11 Cardiology progress note dxs. include:: CKD (chronic kidney disease) lasix which I changed yesterday. Status: Acute Stages are defined by the [employer] as follows: CKD Stage I GFR >= 90 ml / min per 1.73 m2 and persistent albuminuria CKD Stage 2 GFR between 60 and 89 with persistent albuminuria CKD Stage 3 GFR between 30 and 59 CKD Stage 4 GFR between 15 and 29 CKD Stage 5 GFR between <15 or End Stage Renal Disease The patient's Clinical Indicators include: xx Query created by: Celestina Whaley on 12/13/2017 9:44 AM Electronically signed by: Joel Caruso 12/16/2017 6:54 AM
== END 2017-12-13 15:14 | disposition home or self-care (01) | DRG 291 ==
LOC: H.ER 13:16 → H.ERHOLD 15:12 → H.TEL 17:04 → OBSVTOIN 12-11 13:03
PROVIDERS: ADMIT Internal Medicine; ATTEND Internal Medicine
DX: I13.0 Hypertensive heart and chronic kidney disease with heart failure and stage 1 through stage 4 chronic kidney disease, or unspecified chronic kidney disease (principal); I50.23 Acute on chronic systolic (congestive) heart failure; J43.9 Emphysema, unspecified; E11.22 Type 2 diabetes mellitus with diabetic chronic kidney disease; Z23 Encounter for immunization; I48.91 Unspecified atrial fibrillation; I25.10 Atherosclerotic heart disease of native coronary artery without angina pectoris; Z95.1 Presence of aortocoronary bypass graft; Z95.0 Presence of cardiac pacemaker; Z91.14 Patient's other noncompliance with medication regimen; E66.9 Obesity, unspecified; Z68.39 Body mass index [BMI] 39.0-39.9, adult; Z86.73 Personal history of transient ischemic attack (TIA), and cerebral infarction without residual deficits; E78.00 Pure hypercholesterolemia, unspecified; F03.90 Unspecified dementia, unspecified severity, without behavioral disturbance, psychotic disturbance, mood disturbance, and anxiety; K29.70 Gastritis, unspecified, without bleeding; M19.90 Unspecified osteoarthritis, unspecified site; Z79.01 Long term (current) use of anticoagulants; N18.2 Chronic kidney disease, stage 2 (mild)

== ENCOUNTER 2018-03-10 17:57 | Inpatient (IN) | payer MEDICARE, BC ==
[2018-03-10 17:57] VITALS: BMI 38.2
[2018-03-10] MEDS ORDERED: Albuterol-Ipratrop 3 mg / 0.5 (3 ml) UD INH STA ×2 (18:06→19:23)
--- NOTE | 2018-03-10 18:29 | ED PDOC ---
HPI: SOB/CHF/COPD Time Seen by Provider: 03/10/18 18:03 Chief Complaint (Nursing): Shortness Of Breath Chief Complaint (Provider): cough, SOB, weakness History Per: Patient, EMS (ALS) History/Exam Limitations: no limitations Onset/Duration Of Symptoms: Days (1) Current Symptoms Are (Timing): Still Present Quality: Tightness Exacerbating Factor(s): Exertion, Laying Flat, Coughing Current Respiratory Medications: See Home Med List Severity: Severe Associated Symptoms: Productive Cough, Heart Racing Additional History Per: EMS Additional Complaint(s): 77yo male presents via ALS with SOB, cough ongoing since this morning. Given nebulizer x2 enroute to hospital with some improvement. Denies fever, does admit to some weakness and body aches. Patient unaware of medications he takes. Prior chart reviewed, reveal he does take NOAC and lasix. PMD H Deepak Cardio: Sanjiv Past Medical History Reviewed: Historical Data, Nursing Documentation, Vital Signs Vital Signs: Last Vital Signs Temp 98 F 03/10/18 17:59 Pulse 79 03/10/18 17:59 Resp 24 03/10/18 17:59 BP 116/60 03/10/18 17:59 Pulse Ox 97 03/10/18 17:59 - Medical History PMH: Anemia, Arthritis, Atrial Fibrillation, Bronchitis, CAD, CHF, COPD, CVA (mild), Dementia, Diabetes (type II), Emphysema, Gastritis, HTN, Hypercholesterolemia, Peripheral Edema, Pneumonia, Chronic Kidney Disease (CKD) Denies: HIV - Surgical History Surgical History: CABG (in 2005), Pacemaker (11/2017) - Family History Family History: States: Unknown Family Hx, CAD, Diabetes (father) - Immunization History Hx Tetanus Toxoid Vaccination: No Hx Influenza Vaccination: Yes Hx Pneumococcal Vaccination: No - Home Medications Home Medications: Ambulatory Orders Medication Instructions Recorded Losartan/Hydrochlorothiazide 1 tab PO DAILY 11/17/17 [Hyzaar 100-25 Tablet] amLODIPine [Norvasc] 10 mg PO DAILY 11/17/17 Albuterol/Ipratropium [Duoneb 3 3 ml INH RQID neb 11/23/17 mg/0.5 mg (3 ml) UD] Aspirin [Ecotrin] 81 mg PO DAILY tabec 11/23/17 Atorvastatin [Lipitor] 40 mg PO DAILY tab 11/23/17 Carvedilol [Coreg] 6.25 mg PO Q12 tab 11/23/17 Folic Acid 1 mg PO DAILY tab 11/23/17 Isosorbide Mononitrate ER [Imdur 30 mg PO DAILY tab 11/23/17 ER] Lidocaine 5% [Lidoderm] 1 ea TD DAILY patch 11/23/17 Apixaban [Eliquis] 5 mg PO Q12 #60 tab 12/13/17 Furosemide [Lasix] 20 mg PO DAILY #30 tab 12/13/17 Lidocaine 5% [Lidoderm] 1 ea TD DAILY #30 patch 12/13/17 - Allergies Allergies/Adverse Reactions: Allergies Allergy/AdvReac Type Severity Reaction Status Date / Time No Known Allergies Allergy Verified 03/10/18 17:59 Review of Systems Constitutional: Positive for: Weakness, Malaise. Negative for: Fever Eyes: Negative for: Vision Change ENT: Negative for: Ear Pain, Throat Pain Cardiovascular: Positive for: Chest Pain, Orthopnea, Paroxysmal Noc. Dyspnea, Edema Respiratory: Positive for: Cough, Shortness of Breath, SOB with Exertion, Wheezing Gastrointestinal: Negative for: Abdominal Pain Genitourinary Male: Negative for: Dysuria Musculoskeletal: Positive for: Leg Pain. Negative for: Neck Pain, Shoulder Pain, Back Pain Skin: Negative for: Rash, Lesions, Jaundice Neurological: Negative for: Weakness, Numbness, Headache Psych: Negative for: Anxiety, Depression Physical Exam - Reviewed Nursing Documentation Reviewed: Yes Vital Signs Reviewed: Yes - Physical Exam Appears: Positive for: Uncomfortable (mild resp distress speaking partial sentences) Head Exam: Positive for: ATRAUMATIC, NORMAL INSPECTION, NORMOCEPHALIC Skin: Positive for: Normal Color, Warm, DRY Eye Exam: Positive for: EOMI, Normal appearance, PERRL ENT: Positive for: Normal ENT Inspection Neck: Positive for: Normal, Painless ROM Cardiovascular/Chest: Positive for: Regular Rate, Rhythm Respiratory: Positive for: Decreased Breath Sounds, Wheezing, Respiratory Distress (mild) Gastrointestinal/Abdominal: Positive for: Normal Exam, Soft Back: Positive for: Normal Inspection Extremity: Positive for: Swelling (b/l LE 3+ nonpitting edema) Neurologic/Psych: Positive for: Alert, Oriented. Negative for: Motor/Sensory Deficits, Aphasia, Facial Droop - Laboratory Results Result Diagrams: 03/10/18 18:25 03/10/18 18:25 - ECG ECG: Positive for: Interpreted By Me ECG Rhythm: Positive for: Venticular Paced Rate: 61 O2 Sat by Pulse Oximetry: 97 Pulse Ox Interpretation: Normal (on supp O2) - Radiology X-Ray: Interpreted by Me X-Ray Interpretation: Cardiomegaly, Other (CHF) Medical Decision Making Medical Decision Making: workup for SOB with hx of COPD and CHF initiated Prior charts reviewed, admitted sept x3 for COPD/CHF exacerbation Solumedrol and duoneb initiated supplemental O2 continued CXR bilateral cephalization pattern given edema and CXR findings, low dose lasix initiated given BP borderline labs reviewed WBC normal moderate stable anemia BNP 1450 Reference Assistant stable trop neg PTT c/w NOAC re-eval 18:40 remains dyspneic/ SOB but slightly improved after neb, HR improved SPO2 99% on 2L NC Admit Dr Blanca, Dr Kincaid consulting. Disposition - Clinical Impression Clinical Impression: COPD exacerbation, Respiratory distress, CHF exacerbation - Patient ED Disposition Is Patient to be Admitted: Yes Counseled Patient/Family Regarding: Studies Performed, Diagnosis, Need For Followup - Disposition Disposition Time: 18:40 Condition: FAIR Forms: Sodbuster (Maldivian) - Pt Status Changed To: Hospital Disposition Of: Inpatient - Admit Certification Admit to Inpatient:: After my assessment, the patient will require hospitalization for at least two midnights. This is because of the severity of symptoms shown, intensity of services needed, and/or the medical risk in this patient being treated as an outpatient. - POA Present On Arrival: None
[2018-03-10 18:52] LABS: BASO # 0.1 K/uL (0.0-0.2); BASO % 0.9 % (0.0-2.0); EOS # 0.2 K/uL (0.0-0.7); EOS % 3.3 % (0.0-4.0); HEMOGLOBIN 10.2 g/dL (12.0-18.0); LYMPH # 0.9 K/uL (1.0-4.3); LYMPH % 14.5 % (20.0-40.0); MEAN CELL VOLUME 92.1 fl (80.0-94.0); MEAN CORPUSCULAR HEMOGLOBIN 30.7 pg (27.0-31.0); MEAN CORPUSCULAR HGB CONC 33.3 g/dL (33.0-37.0); MEAN PLATELET VOLUME 8.8 fl (7.2-11.7); MONO % 16.4 % (0.0-10.0); NEUT % 64.9 % (50.0-75.0); RBC 3.32 Mil/uL (4.40-5.90); RED CELL DISTRIBUTION WIDTH 13.8 % (11.5-14.5); WHITE BLOOD COUNT 6.2 K/uL (4.8-10.8)
[2018-03-10] MEDS ORDERED: Albuterol-Ipratrop 3 mg / 0.5 (3 ml) UD ONE ×2 (18:52→19:27)
[2018-03-10 18:54] LABS: INR 1.7; PROTHROMBIN TIME 19.4 Seconds (9.8-13.1)
[2018-03-10 18:56] LABS: PARTIAL THROMBOPLASTIN TIME 41.2 Seconds (25.6-37.1)
[2018-03-10 18:57] LABS: ALB/GLOB RATIO 1.4 (1.0-2.1); ALBUMIN 3.8 g/dL (3.5-5.0); ALT/SGPT 31 U/L (21-72); AST/SGOT 28 U/L (17-59); BLOOD UREA NITROGEN 45 mg/dl (9-20); CALCIUM 8.4 mg/dL (8.4-10.2); GFR NON-AFRICAN AMERICAN 39
[2018-03-10 19:10] LABS: B-TYPE NATRIURETIC PEPTIDE 1450 pg/ml (0-900)
[2018-03-10 19:38] LABS: URINE BILIRUBIN NEGATIVE (NEGATIVE); URINE BLOOD NEGATIVE (NEGATIVE); URINE CLARITY CLEAR (Clear); URINE COLOR STRAW (YELLOW); URINE GLUCOSE (UA) NEG (NEGATIVE); URINE LEUKOCYTE ESTERASE NEG Leu/uL (Negative); URINE PROTEIN NEGATIVE (NEGATIVE); URINE UROBILINOGEN 0.2-1.0 mg/dL (0.2-1.0)
[2018-03-10] MEDS ORDERED: Sodium Chloride 3% for Inhalation 4 ML VIAL.NEB IH PRN (21:47)
[2018-03-10] MEDS: Albuterol-Ipratrop 3 mg / 0.5 (3 ml) UD INH SCH (23:08)
[2018-03-11] MEDS ORDERED: methylPREDNISolone 60 MG in Sodium Chloride 0.9% 50 ML IV SCH (01:00)
[2018-03-11] MEDS: Albuterol-Ipratrop 3 mg / 0.5 (3 ml) UD INH SCH ×6 (05:17→23:20)
[2018-03-11 06:51] LABS: HEMOGLOBIN 10.1 g/dL (12.0-18.0); MEAN CELL VOLUME 94.7 fl (80.0-94.0); MEAN CORPUSCULAR HEMOGLOBIN 30.4 pg (27.0-31.0); MEAN CORPUSCULAR HGB CONC 32.1 g/dL (33.0-37.0); RBC 3.32 Mil/uL (4.40-5.90); RED CELL DISTRIBUTION WIDTH 13.9 % (11.5-14.5); WHITE BLOOD COUNT 4.7 K/uL (4.8-10.8)
[2018-03-11 07:08] LABS: CALCIUM 8.2 mg/dL (8.4-10.2)
[2018-03-11] MEDS ORDERED: Enoxaparin 40 mg Syringe SC SCH (09:00)
[2018-03-11] MEDS: Multivitamin With Minerals Tab PO SCH (10:06)
[2018-03-11] MEDS: HCTZ/Losartan 12.5/50 Tab PO SCH (10:09)
[2018-03-11] MEDS: Fluticasone-Salmeterol 250-50mcg Diskus INH SCH ×2 (10:25→16:03)
--- NOTE | 2018-03-11 11:59 | CP.PCM.CON ---
History of Present Illness - History of Present Illness History of Present Illness: I was asked to see patient by Dr Blanca. Patient was seen 03/11/18 1100 Patient is a 77 year old male with HTN s/p CABG, MVR, PPM chronic afib, COPD who presents with dyspnea. Patient does not give clear history but states he did no t feel well. He had dyspnea. He denies chest pain. he is admitted for a COPD exacerbation Review of Systems - Constitutional Constitutional: absent: As Per HPI, Anorexia, Chills, Daytime Sleepiness, Excessive Sweating, Fatigue, Fever, Frequent Falls, Headache, Increased Appetite, Lethargy, Malaise, Night Sweats, Snoring, Sleep Apnea, Weight Gain, Weight Loss, Weakness, Other - EENT Eyes: absent: As Per HPI, Blind Spots, Blurred Vision, Change in Vision, Decreased Night Vision, Diplopia, Discharge, Dry Eye, Exophthalmos, Floaters, Irritation, Itchy Eyes, Loss of Peripheral Vision, Pain, Photophobia, Requires Corrective Lenses, Sees Flashes, Spots in Vision, Tunnel Vision, Other Visual Disturbances, Loss of Vision, Other Ears: absent: As Per HPI, Decreased Hearing, Ear Discharge, Ear Pain, Tinnitus, Abnormal Hearing, Disequilibrium, Dizziness, Other Nose/Mouth/Throat: absent: As Per HPI, Epistaxis, Nasal Congestion, Nasal Discharge, Nasal Obstruction, Nasal Trauma, Nose Pain, Post Nasal Drip, Sinus Pain, Sinus Pressure, Bleeding Gums, Change in Voice, Dental Pain, Dry Mouth, Dysphagia, Halitosis, Hoarsness, Lip Swelling, Mouth Lesions, Mouth Pain, Odynophagia, Sore Throat, Throat Swelling, Tongue Swelling, Facial Pain, Neck Pain, Neck Mass, Other - Cardiovascular Cardiovascular: Dyspnea. absent: Chest Pain, Chest Pain at Rest, Edema - Respiratory Respiratory: Dyspnea - Gastrointestinal Gastrointestinal: absent: As Per HPI, Abdominal Pain, Belching, Bloating, Change in Bowel Habits, Change in Stool Character, Coffee Ground Emesis, Constipation, Cramping, Diarrhea, Dyspepsia, Dysphagia, Early Satiety, Excessive Flatus, Fecal Incontinence, Heartburn, Hematemesis, Hematochezia, Loose Stools, Melena, N ausea, Odynophagia, Temesmus, Vomiting, Other - Genitourinary Genitourinary: absent: As Per HPI, Change in Urinary Stream, Difficulty Urinating, Dysuria, Flank Pain, Hematuria, Pyuria, Nocturia, Urinary Incontinence, Urinary Frequency, Urinary Hesitance, Urinary Urgency, Voiding Freq/Small Amts, Freq UTI, Hx Renal/Bladder Calculi, Hx /Renal Surgery, Bladder Distension, Other - Musculoskeletal Musculoskeletal: absent: As Per HPI, Abnormal Gait, Arthralgias, Atrophy, Back Pain, Deformity, Joint Swelling, Limited Range of Motion, Loss of Height, Muscle Cramps, Muscle Weakness, Myalgias, Neck Pain, Numbness, Radiating Pain into Limb, Stiffness, Tingling, Other - Integumentary Integumentary: absent: As Per HPI, Acne, Alopecia, Bleeding Lesions, Change in Hair, Change in Nails, Change in Pigmentation, Changing Lesions, Dry Skin, Erythema, Furuncle, Hirsutism, Lesions, New Lesions, Non-Healing Lesions, Photosensitivity, Pruritus, Rash, Skin Pain, Skin Ulcer, Sores, Striae, Swelling, Unusual Bruising, Wounds, Jaundice, Other - Neurological Neurological: absent: As Per HPI, Abnormal Gait, Abnormal Hearing, Abnormal Movements, Abnormal Speech, Behavioral Changes, Burning Sensations, Confusion, Convulsions, Disequilibrium, Dizziness, Numbness, Focal Weakness, Frequent Falls, Headaches, Lack of Coordination, Loss of Vision, Memory Loss, Paresthesias, Radicular Pain, Restless Legs, Sensory Deficit, Syncope, Tingling, Tremor, Vertigo, Weakness, Other Visual Disturbances, Other - Psychiatric Psychiatric: absent: As Per HPI, Abnormal Sleep Pattern, Anhedonia, Anxiety, Auditory Hallucinations, Behavioral Changes, Change in Appetite, Change in Libido, Confusion, Depression, Difficulty Concentrating, Hallucinations, Homicidal Ideation, Hopelessness, Irritability, Memory Loss, Mood Swings, Panic Attacks, Paranoia, Suicidal Ideation, Visual Hallucinations, Tactile Hallucinations, Other - Endocrine Endocrine: absent: As Per HPI, Change in Body Appearance, Change in Libido, Cold Intolorance, Deepening of Voice, Excessive Sweating, Fatigue, Flushing, Heat Intolorance, Increase in Ring/Shoe/Hat Size, Palpitations, Polydipsia, Polyphagia, Polyuria, Other - Hematologic/Lymphatic Hematologic: absent: As Per HPI, Easy Bleeding, Easy Bruising, Lymphadenopathy, Other Past Patient History - Infectious Disease Hx of Infectious Diseases: None - Tetanus Immunizations Tetanus Immunization: Unknown - Past Medical History & Family History Past Medical History?: Yes - Past Social History Smoking Status: Former Smoker - CARDIAC Hx Cardiac Disorders: Yes Hx Atrial Fibrillation: Yes Hx Congestive Heart Failure: Yes Hx Hypercholesterolemia: Yes Hx Hypertension: Yes Hx Pacemaker: Yes (11/2017) Hx Peripheral Edema: Yes - PULMONARY Hx Respiratory Disorders: Yes Hx Bronchitis: Yes Hx Chronic Obstructive Pulmonary Disease (COPD): Yes Hx Emphysema: Yes Hx Pneumonia: Yes - NEUROLOGICAL Hx Neurological Disorder: Yes Hx Dementia: Yes - HEENT Hx HEENT Problems: No - RENAL Hx Chronic Kidney Disease: Yes (CKD) - ENDOCRINE/METABOLIC Hx Endocrine Disorders: No - HEMATOLOGICAL/ONCOLOGICAL Hx Blood Disorders: Yes Hx Anemia: Yes - INTEGUMENTARY Hx Dermatological Problems: No - MUSCULOSKELETAL/RHEUMATOLOGICAL Hx Musculoskeletal Disorders: Yes Hx Arthritis: Yes Hx Falls: No - GASTROINTESTINAL Hx Gastrointestinal Disorders: Yes Hx Gastritis: Yes - GENITOURINARY/GYNECOLOGICAL Hx Genitourinary Disorders: No - PSYCHIATRIC Hx Psychophysiologic Disorder: No Hx Substance Use: No - SURGICAL HISTORY Hx Surgeries: Yes Hx Coronary Artery Bypass Graft: Yes (in 2005) Other/Comment: Pacemaker - ANESTHESIA Hx Anesthesia: Yes Hx Anesthesia Reactions: No Hx Malignant Hyperthermia: No Meds Allergies/Adverse Reactions: Allergies Allergy/AdvReac Type Severity Reaction Status Date / Time No Known Allergies Allergy Verified 03/10/18 17:59 - Medications Medications: Current Medications Albuterol/Ipratropium (Duoneb 3 Mg/0.5 Mg (3 Ml) Ud) 3 ml INH RQ4 [facility] Last Admin: 03/11/18 11:01 Dose: 3 ml Apixaban (Eliquis) 5 mg PO Q12 [facility]; Protocol Last Admin: 03/11/18 10:04 Dose: 5 mg Aspirin (Aspirin Chewable) 81 mg PO DAILY [facility] Last Admin: 03/11/18 10:04 Dose: 81 mg Atorvastatin Calcium (Lipitor) 40 mg PO DAILY [facility] Last Admin: 03/11/18 10:05 Dose: 40 mg Carvedilol (Coreg) 6.25 mg PO BID [facility] Folic Acid (Folic Acid) 1 mg PO DAILY [facility] Last Admin: 03/11/18 10:04 Dose: 1 mg Furosemide (Lasix) 20 mg IVP DAILY [facility] Last Admin: 03/11/18 10:09 Dose: Not Given HCTZ/Losartan Potassium (Hyzaar 12.5 Mg-50 Mg) 2 tab PO DAILY [facility] Last Admin: 03/11/18 10:09 Dose: Not Given Home Med (Budesonide/Formoterol Fumarate [Symbicort 160-4.5 Mcg Inhaler]) 2 puff INH BID [facility] Isosorbide Mononitrate (Imdur Er) 30 mg PO DAILY [facility] Last Admin: 03/11/18 10:09 Dose: Not Given Methylprednisolone (Solu-Medrol) 60 mg IV Q8H [facility] Last Admin: 03/11/18 10:05 Dose: 60 mg Multivitamins/Minerals (Therapeutic-M Tab) 1 tab PO DAILY [facility] Last Admin: 03/11/18 10:06 Dose: 1 tab Physical Exam - Constitutional Appears: Non-toxic - Head Exam Head Exam: NORMAL INSPECTION - Eye Exam Eye Exam: Normal appearance - ENT Exam ENT Exam: Mucous Membranes Moist - Neck Exam Neck exam: Positive for: Full Rom - Respiratory Exam Respiratory Exam: NORMAL BREATHING PATTERN - Cardiovascular Exam Cardiovascular Exam: Irregular Rhythm - GI/Abdominal Exam GI & Abdominal Exam: Normal Bowel Sounds - Rectal Exam Rectal Exam: Deferred - Extremities Exam Extremities exam: Negative for: pedal edema - Back Exam Back exam: NORMAL INSPECTION - Neurological Exam Neurological exam: Alert, Oriented x3 - Psychiatric Exam Psychiatric exam: Normal Affect - Skin Skin Exam: Normal Color Results - Vital Signs Recent Vital Signs: Last Vital Signs Temp 97.4 F L 03/11/18 08:10 Pulse 65 03/11/18 10:09 Resp 18 03/11/18 08:10 BP 95/52 L 03/11/18 10:09 Pulse Ox 97 03/11/18 08:10 - Labs Result Diagrams: 03/11/18 06:43 03/11/18 06:43 Labs: Laboratory Results - last 24 hr 03/10/18 03/10/18 03/10/18 18:19 18:25 18:25 WBC 6.2 RBC 3.32 L Hgb 10.2 L Hct 30.5 L MCV 92.1 MCH 30.7 MCHC 33.3 RDW 13.8 Plt Count 179 MPV 8.8 Neut % (Auto) 64.9 Lymph % (Auto) 14.5 L [place] % (Auto) 16.4 H Eos % (Auto) 3.3 Baso % (Auto) 0.9 Neut # (Auto) 4.0 Lymph # (Auto) 0.9 L [place] # (Auto) 1.0 H Eos # (Auto) 0.2 Baso # (Auto) 0.1 PT INR APTT Sodium 136 Potassium 4.4 Chloride 100 Carbon Dioxide 28 Anion Gap 12 BUN 45 H Creatinine 1.7 H Est GFR ( Amer) 48 Est GFR (Non-Af Amer) 39 POC Glucose (mg/dL) Random Glucose 129 H Calcium 8.4 Total Bilirubin 0.8 AST 28 ALT 31 Alkaline Phosphatase 90 Troponin I < 0.0120 NT-Pro-B Natriuret Pep 1450 H Total Protein 6.5 Albumin 3.8 Globulin 2.7 Albumin/Globulin Ratio 1.4 Triglycerides Cholesterol LDL Cholesterol Direct HDL Cholesterol Urine Color Urine Clarity Urine pH Ur Specific [place] Urine Protein Urine Glucose (UA) Urine Ketones Urine Blood Urine Nitrate Urine Bilirubin Urine Urobilinogen Ur Leukocyte Esterase Urine RBC (Auto) Influenza Typ A,B (EIA) Negative for flu a/b 03/10/18 03/10/18 03/10/18 18:25 19:21 21:38 WBC RBC Hgb Hct MCV MCH MCHC RDW Plt Count MPV Neut % (Auto) Lymph % (Auto) [place] % (Auto) Eos % (Auto) Baso % (Auto) Neut # (Auto) Lymph # (Auto) [place] # (Auto) Eos # (Auto) Baso # (Auto) PT 19.4 H INR 1.7 APTT 41.2 H Sodium Potassium Chloride Carbon Dioxide Anion Gap BUN Creatinine Est GFR ( Amer) Est GFR (Non-Af Amer) POC Glucose (mg/dL) 194 H Random Glucose Calcium Total Bilirubin AST ALT Alkaline Phosphatase Troponin I NT-Pro-B Natriuret Pep Total Protein Albumin Globulin Albumin/Globulin Ratio Triglycerides Cholesterol LDL Cholesterol Direct HDL Cholesterol Urine Color Straw Urine Clarity Clear Urine pH 6.0 Ur Specific [place] 1.008 Urine Protein Negative Urine Glucose (UA) Neg Urine Ketones Negative Urine Blood Negative Urine Nitrate Negative Urine Bilirubin Negative Urine Urobilinogen 0.2-1.0 Ur Leukocyte Esterase Neg Urine RBC (Auto) < 1 Influenza Typ A,B (EIA) 03/11/18 03/11/18 06:43 06:43 WBC 4.7 L RBC 3.32 L Hgb 10.1 L Hct 31.4 L MCV 94.7 H D MCH 30.4 MCHC 32.1 L RDW 13.9 Plt Count 173 MPV Neut % (Auto) Lymph % (Auto) [place] % (Auto) Eos % (Auto) Baso % (Auto) Neut # (Auto) Lymph # (Auto) [place] # (Auto) Eos # (Auto) Baso # (Auto) PT INR APTT Sodium 135 Potassium 4.3 Chloride 98 Carbon Dioxide 27 Anion Gap 14 BUN 49 H Creatinine 1.7 H Est GFR ( Amer) 48 Est GFR (Non-Af Amer) 39 POC Glucose (mg/dL) Random Glucose 288 H Calcium 8.2 L Total Bilirubin AST ALT Alkaline Phosphatase Troponin I NT-Pro-B Natriuret Pep 1650 H Total Protein Albumin Globulin Albumin/Globulin Ratio Triglycerides 72 D Cholesterol 81 LDL Cholesterol Direct 61 HDL Cholesterol 22 L Urine Color Urine Clarity Urine pH Ur Specific [place] Urine Protein Urine Glucose (UA) Urine Ketones Urine Blood Urine Nitrate Urine Bilirubin Urine Urobilinogen Ur Leukocyte Esterase Urine RBC (Auto) Influenza Typ A,B (EIA) - EKG Data EKG Interpreted by: Myself Assessment & Plan (1) Dyspnea Assessment and Plan: likley COPD exacerbation. Patient has normal LV function. Status: Acute (2) Pacemaker Assessment and Plan: normal function Status: Acute (3) CAD (coronary artery disease) Assessment and Plan: stable. no angina Status: Chronic (4) HTN (hypertension) Assessment and Plan: blood pressure is controlled Status: Chronic
--- NOTE | 2018-03-11 15:57 | HP ---
ADMIT HISTORY AND PHYSICAL HISTORY OF PRESENT ILLNESS: Mr. Tsang is 77-year-old male with shortness of breath and altered mental status. He was admitted via the emergency room with acute congestive heart failure and exacerbation of chronic obstructive pulmonary disease. He was given nebulizer therapy in the emergency room and then admitted because of progressively worsening shortness of breath. He is unable to give much history, but as per medical records, he has a history of anemia, arthritis, atrial fibrillation, coronary artery disease, COPD, congestive heart failure, mild CVA, dementia, diabetes mellitus, and hypertension. FAMILY HISTORY: Noncontributory. SOCIAL HISTORY: He is unable to actually articulate much history. PHYSICAL EXAMINATION: GENERAL: The patient is awake, alert, comfortable at present. VITAL SIGNS: On admission, blood pressure 116/60 with a pulse of 79, respiratory rate 24. He is febrile. O2 sat 97% on nasal cannula oxygen. SKIN: Shows fair turgor. HEENT: Pupils equal and reactive to light and accommodation. JVP flat. LUNGS: Poor aeration with scattered rales and wheezing and basal dullness. HEART: Irregular rhythm. ABDOMEN: Soft, nontender. No organomegaly. EXTREMITIES: Show trace pitting pedal edema. CENTRAL NERVOUS SYSTEM: Exam is grossly intact. LABORATORY DATA: Sodium 136, potassium 4.4, BUN 45, creatinine 1.7, serum glucose 129. EKG, ventricular paced rhythm. ProBNP 1450. Troponin negative. WBC 6.2, hemoglobin 10.2, platelet count of 179 thousand. Chest x-ray, official report pending, but shows cardiomegaly with pacemaker in place and sternotomy wires in place. IMPRESSION: Acute congestive heart failure, acute exacerbation of chronic obstructive pulmonary disease, history of coronary artery bypass graft, history of pacemaker therapy, history of mild dementia. PLAN: The plan is continue diuretic therapy, oxygen, aerosolized bronchodilators, IV steroids. Monitor blood pressure closely, will refer for social service evaluation regarding subacute care prior to discharge home. Binh Blanca MD
[2018-03-11] MEDS: Oxycodone/Acetaminophen 5/325 mg Tab PO PRN ×2 (16:00→20:32)
--- NOTE | 2018-03-11 16:26 | RAD ---
Date of service: 03/10/2018 HISTORY: SOB COMPARISON: Comparison chest dated 12/09/2017. FINDINGS: LUNGS: Mild pulmonary venous congestive changes with bilateral lower lobe alveolar-type infiltrates and small bilateral effusions. PLEURA: No significant pleural effusion identified, no pneumothorax apparent. CARDIOVASCULAR: Mild aortic atherosclerotic calcification present. Sternotomy wires and CABG clips and single lead pacemaker/defibrillator again noted. Cardiomegaly. OSSEOUS STRUCTURES: No significant abnormalities. VISUALIZED UPPER ABDOMEN: Normal. OTHER FINDINGS: None. IMPRESSION: Mild pulmonary venous congestive changes with bilateral lower lobe alveolar-type infiltrates and bilateral effusions. Marked cardiomegaly.
--- NOTE | 2018-03-11 23:13 | CARD ---
APPROVED REPORT Date of service: 03/10/2018 EKG Measurement Heart [id number] <Conclusion> Ventricular-paced rhythm Abnormal ECG
[2018-03-12] MEDS ORDERED: MethylPREDNISolone 40 mg Vial ONE (00:24)
[2018-03-12] MEDS: Albuterol-Ipratrop 3 mg / 0.5 (3 ml) UD INH SCH ×6 (05:07→23:43)
[2018-03-12] MEDS: Oxycodone/Acetaminophen 5/325 mg Tab PO PRN (06:17)
[2018-03-12] MEDS: Fluticasone-Salmeterol 250-50mcg Diskus INH SCH ×2 (08:44→16:37)
[2018-03-12] MEDS: HCTZ/Losartan 12.5/50 Tab PO SCH (08:45)
[2018-03-12] MEDS: Multivitamin With Minerals Tab PO SCH (08:47)
--- NOTE | 2018-03-12 10:47 | CP.PCM.PN ---
Subjective - Date & Time of Evaluation Date of Evaluation: 03/12/18 Time of Evaluation: 10:47 - Subjective Subjective: SOB IMPROVED NO CHEST PAINS Objective - Vital Signs/Intake and Output Vital Signs (last 24 hours): Temp Pulse Resp BP Pulse Ox 97.4 F L 96 H 18 114/64 96 03/12/18 08:15 03/12/18 08:44 03/12/18 08:15 03/12/18 08:46 03/12/18 08:15 Intake and Output: 03/12/18 03/12/18 06:59 18:59 Intake Total 480 Output Total 700 Balance -220 - Medications Medications: Current Medications Albuterol/Ipratropium (Duoneb 3 Mg/0.5 Mg (3 Ml) Ud) 3 ml INH RQ4 [facility] Last Admin: 03/12/18 07:11 Dose: 3 ml Apixaban (Eliquis) 5 mg PO Q12 [facility]; Protocol Last Admin: 03/12/18 08:45 Dose: 5 mg Aspirin (Aspirin Chewable) 81 mg PO DAILY [facility] Last Admin: 03/12/18 08:44 Dose: 81 mg Atorvastatin Calcium (Lipitor) 40 mg PO DAILY [facility] Last Admin: 03/12/18 08:46 Dose: 40 mg Carvedilol (Coreg) 6.25 mg PO BID [facility] Last Admin: 03/12/18 08:44 Dose: 6.25 mg Folic Acid (Folic Acid) 1 mg PO DAILY [facility] Last Admin: 03/12/18 08:45 Dose: 1 mg Furosemide (Lasix) 20 mg IVP DAILY [facility] Last Admin: 03/12/18 08:46 Dose: 20 mg HCTZ/Losartan Potassium (Hyzaar 12.5 Mg-50 Mg) 2 tab PO DAILY [facility] Last Admin: 03/12/18 08:45 Dose: 2 tab Isosorbide Mononitrate (Imdur Er) 30 mg PO DAILY [facility] Last Admin: 03/12/18 08:45 Dose: 30 mg Multivitamins/Minerals (Therapeutic-M Tab) 1 tab PO DAILY [facility] Last Admin: 03/12/18 08:47 Dose: 1 tab Oxycodone/Acetaminophen (Percocet 5/325 Mg Tab) 1 tab PO Q4 PRN PRN Reason: Pain, moderate (4-7) Stop: 03/14/18 15:29 Last Admin: 03/12/18 06:17 Dose: 1 tab Fluticasone/Salmeterol (Advair Diskus 250/50) 1 puff INH BID [facility] Last Admin: 03/12/18 08:44 Dose: 1 puff - Labs Labs: 03/11/18 06:43 03/11/18 06:43 PT 19.4 Seconds (9.8-13.1) H 03/10/18 18:25 INR 1.7 03/10/18 18:25 APTT 41.2 Seconds (25.6-37.1) H 03/10/18 18:25 - Constitutional Appears: No Acute Distress - Head Exam Head Exam: ATRAUMATIC, NORMAL INSPECTION, NORMOCEPHALIC - Eye Exam Eye Exam: EOMI, Normal appearance, PERRL Pupil Exam: NORMAL ACCOMODATION, PERRL - ENT Exam ENT Exam: Mucous Membranes Moist, Normal Exam - Neck Exam Neck Exam: Full ROM, Normal Inspection. absent: Lymphadenopathy - Respiratory Exam Respiratory Exam: Decreased Breath Sounds, Wheezes, NORMAL BREATHING PATTERN - Cardiovascular Exam Cardiovascular Exam: REGULAR RHYTHM, +S1, +S2. absent: Murmur - GI/Abdominal Exam GI & Abdominal Exam: Soft, Normal Bowel Sounds. absent: Tenderness - Rectal Exam Rectal Exam: NORMAL INSPECTION - Extremities Exam Extremities Exam: Full ROM, Normal Capillary Refill, Normal Inspection. absent: Joint Swelling, Pedal Edema - Back Exam Back Exam: NORMAL INSPECTION - Neurological Exam Neurological Exam: Alert, Awake, CN II-XII Intact, Normal Gait, Oriented x3 - Psychiatric Exam Psychiatric exam: Normal Affect, Normal Mood - Skin Skin Exam: Dry, Intact, Normal Color, Warm Assessment and Plan - Assessment and Plan (Free Text) Assessment: COPD EXAC--IMPROVING CHF-IMPROVING Plan: REPEAT CXR CONTINUE PRESENT RX D/C IN AM IF STABLE
--- NOTE | 2018-03-12 13:34 | RAD ---
Date of service: 03/12/2018 HISTORY: CHF COMPARISON: Comparison chest dated 03/10/2018 TECHNIQUE: Chest PA and lateral FINDINGS: LUNGS: Persistent mild pulmonary venous congestive changes with bilateral patchy lower lobe alveolar-type infiltrates and with suspected small bilateral effusions. Curvilinear atelectasis left lateral mid lung field PLEURA: No significant pleural effusion identified. No pneumothorax apparent. CARDIOVASCULAR: Mild aortic atherosclerotic calcification present. Cardiomegaly. Sternotomy wires again noted. No change single lead pacemaker/defibrillator OSSEOUS STRUCTURES: No significant abnormalities. VISUALIZED UPPER ABDOMEN: Normal. OTHER FINDINGS: None. IMPRESSION: Persistent mild pulmonary venous congestive changes with bilateral patchy lower lobe alveolar-type infiltrates and with suspected small bilateral effusions. Curvilinear atelectasis left lateral mid lung field
[2018-03-13] MEDS: Albuterol-Ipratrop 3 mg / 0.5 (3 ml) UD INH SCH ×5 (03:04→19:43)
[2018-03-13 05:47] LABS: CALCIUM 7.9 mg/dL (8.4-10.2)
[2018-03-13] MEDS: HCTZ/Losartan 12.5/50 Tab PO SCH (08:29)
[2018-03-13] MEDS: Fluticasone-Salmeterol 250-50mcg Diskus INH SCH ×2 (08:30→17:35)
[2018-03-13] MEDS: Multivitamin With Minerals Tab PO SCH (08:30)
--- NOTE | 2018-03-13 10:39 | CP.PCM.PN ---
Subjective - Date & Time of Evaluation Date of Evaluation: 03/13/18 Time of Evaluation: 10:15 - Subjective Subjective: patient has stable cardiac status. no chest pain. feels weak Objective - Vital Signs/Intake and Output Vital Signs (last 24 hours): Temp Pulse Resp BP Pulse Ox 97.3 F L 67 20 129/70 96 03/13/18 07:56 03/13/18 08:29 03/13/18 07:56 03/13/18 08:35 03/13/18 07:56 - Medications Medications: Current Medications Albuterol/Ipratropium (Duoneb 3 Mg/0.5 Mg (3 Ml) Ud) 3 ml INH RQ4 [facility] Last Admin: 03/13/18 07:43 Dose: 3 ml Apixaban (Eliquis) 5 mg PO Q12 [facility]; Protocol Last Admin: 03/13/18 08:28 Dose: 5 mg Aspirin (Aspirin Chewable) 81 mg PO DAILY [facility] Last Admin: 03/13/18 08:30 Dose: 81 mg Atorvastatin Calcium (Lipitor) 40 mg PO DAILY [facility] Last Admin: 03/13/18 08:30 Dose: 40 mg Carvedilol (Coreg) 6.25 mg PO BID [facility] Last Admin: 03/13/18 08:29 Dose: 6.25 mg Folic Acid (Folic Acid) 1 mg PO DAILY [facility] Last Admin: 03/13/18 08:30 Dose: 1 mg Furosemide (Lasix) 20 mg IVP DAILY [facility] Last Admin: 03/13/18 08:35 Dose: 20 mg HCTZ/Losartan Potassium (Hyzaar 12.5 Mg-50 Mg) 2 tab PO DAILY [facility] Last Admin: 03/13/18 08:29 Dose: 2 tab Isosorbide Mononitrate (Imdur Er) 30 mg PO DAILY [facility] Last Admin: 03/13/18 08:29 Dose: 30 mg Methylprednisolone (Solu-Medrol) 60 mg IV Q12 [facility] Last Admin: 03/13/18 08:31 Dose: 60 mg Multivitamins/Minerals (Therapeutic-M Tab) 1 tab PO DAILY [facility] Last Admin: 03/13/18 08:30 Dose: 1 tab Oxycodone/Acetaminophen (Percocet 5/325 Mg Tab) 1 tab PO Q4 PRN PRN Reason: Pain, moderate (4-7) Stop: 03/14/18 15:29 Last Admin: 03/12/18 06:17 Dose: 1 tab Fluticasone/Salmeterol (Advair Diskus 250/50) 1 puff INH BID [facility] Last Admin: 03/13/18 08:30 Dose: 1 puff - Labs Labs: 03/11/18 06:43 03/13/18 05:17 PT 19.4 Seconds (9.8-13.1) H 03/10/18 18:25 INR 1.7 03/10/18 18:25 APTT 41.2 Seconds (25.6-37.1) H 03/10/18 18:25 - Constitutional Appears: Non-toxic - Head Exam Head Exam: NORMAL INSPECTION - Eye Exam Eye Exam: Normal appearance - ENT Exam ENT Exam: Mucous Membranes Moist - Neck Exam Neck Exam: Full ROM - Respiratory Exam Respiratory Exam: NORMAL BREATHING PATTERN - Cardiovascular Exam Cardiovascular Exam: REGULAR RHYTHM - GI/Abdominal Exam GI & Abdominal Exam: Normal Bowel Sounds - Rectal Exam Rectal Exam: Deferred - Extremities Exam Extremities Exam: absent: Pedal Edema - Back Exam Back Exam: NORMAL INSPECTION - Neurological Exam Neurological Exam: Alert - Psychiatric Exam Psychiatric exam: Normal Affect - Skin Skin Exam: Normal Color Assessment and Plan (1) Dyspnea Assessment & Plan: agustín OLIVARES. Dr Blanca following. clear lungs on exam now Status: Acute (2) Pacemaker Assessment & Plan: normal function Status: Acute (3) CAD (coronary artery disease) Assessment & Plan: no current angina Status: Chronic (4) HTN (hypertension) Assessment & Plan: blood pressure is controlled Status: Chronic
--- NOTE | 2018-03-13 12:37 | CP.PCM.PN ---
Subjective - Date & Time of Evaluation Date of Evaluation: 03/13/18 Time of Evaluation: 12:39 - Subjective Subjective: c/o cough and mild sob today unable to expectorate sputum Objective - Vital Signs/Intake and Output Vital Signs (last 24 hours): Temp Pulse Resp BP Pulse Ox 97.4 F L 71 20 113/61 97 03/13/18 12:06 03/13/18 12:06 03/13/18 12:06 03/13/18 12:06 03/13/18 12:06 - Medications Medications: Current Medications Albuterol/Ipratropium (Duoneb 3 Mg/0.5 Mg (3 Ml) Ud) 3 ml INH RQ4 [facility] Last Admin: 03/13/18 11:44 Dose: 3 ml Apixaban (Eliquis) 5 mg PO Q12 [facility]; Protocol Last Admin: 03/13/18 08:28 Dose: 5 mg Aspirin (Aspirin Chewable) 81 mg PO DAILY [facility] Last Admin: 03/13/18 08:30 Dose: 81 mg Atorvastatin Calcium (Lipitor) 40 mg PO DAILY [facility] Last Admin: 03/13/18 08:30 Dose: 40 mg Carvedilol (Coreg) 6.25 mg PO BID [facility] Last Admin: 03/13/18 08:29 Dose: 6.25 mg Folic Acid (Folic Acid) 1 mg PO DAILY [facility] Last Admin: 03/13/18 08:30 Dose: 1 mg Furosemide (Lasix) 20 mg IVP DAILY [facility] Last Admin: 03/13/18 08:35 Dose: 20 mg HCTZ/Losartan Potassium (Hyzaar 12.5 Mg-50 Mg) 2 tab PO DAILY [facility] Last Admin: 03/13/18 08:29 Dose: 2 tab Isosorbide Mononitrate (Imdur Er) 30 mg PO DAILY [facility] Last Admin: 03/13/18 08:29 Dose: 30 mg Methylprednisolone (Solu-Medrol) 60 mg IV Q12 [facility] Last Admin: 03/13/18 08:31 Dose: 60 mg Multivitamins/Minerals (Therapeutic-M Tab) 1 tab PO DAILY [facility] Last Admin: 03/13/18 08:30 Dose: 1 tab Oxycodone/Acetaminophen (Percocet 5/325 Mg Tab) 1 tab PO Q4 PRN PRN Reason: Pain, moderate (4-7) Stop: 03/14/18 15:29 Last Admin: 03/12/18 06:17 Dose: 1 tab Fluticasone/Salmeterol (Advair Diskus 250/50) 1 puff INH BID [facility] Last Admin: 03/13/18 08:30 Dose: 1 puff - Labs Labs: 03/11/18 06:43 03/13/18 05:17 PT 19.4 Seconds (9.8-13.1) H 03/10/18 18:25 INR 1.7 03/10/18 18:25 APTT 41.2 Seconds (25.6-37.1) H 03/10/18 18:25 - Constitutional Appears: In Acute Distress - Head Exam Head Exam: ATRAUMATIC, NORMAL INSPECTION, NORMOCEPHALIC - Eye Exam Eye Exam: EOMI, Normal appearance, PERRL Pupil Exam: NORMAL ACCOMODATION, PERRL - ENT Exam ENT Exam: Mucous Membranes Moist, Normal Exam - Neck Exam Neck Exam: Full ROM, Normal Inspection. absent: Lymphadenopathy - Respiratory Exam Respiratory Exam: Decreased Breath Sounds, Prolonged Expiratory Phase, Rales, NORMAL BREATHING PATTERN - Cardiovascular Exam Cardiovascular Exam: REGULAR RHYTHM, +S1, +S2. absent: Murmur - GI/Abdominal Exam GI & Abdominal Exam: Soft, Normal Bowel Sounds. absent: Tenderness - Rectal Exam Rectal Exam: NORMAL INSPECTION - Extremities Exam Extremities Exam: Full ROM, Normal Capillary Refill, Pedal Edema. absent: Joint Swelling - Back Exam Back Exam: NORMAL INSPECTION - Neurological Exam Neurological Exam: Alert, Awake, CN II-XII Intact, Normal Gait, Oriented x3 - Psychiatric Exam Psychiatric exam: Normal Affect, Normal Mood - Skin Skin Exam: Dry, Intact, Normal Color, Warm Assessment and Plan - Assessment and Plan (Free Text) Assessment: chf copd exac ashd Plan: continue current rx antitussives,prn
[2018-03-13] MEDS: Promethazine DM 12.5 mg-30 mg/10 ml Syrup PO PRN ×2 (14:56→21:25)
[2018-03-14] MEDS: Albuterol-Ipratrop 3 mg / 0.5 (3 ml) UD INH SCH ×7 (00:44→23:19)
[2018-03-14] MEDS: Promethazine DM 12.5 mg-30 mg/10 ml Syrup PO PRN ×3 (08:48→21:06)
[2018-03-14] MEDS: Fluticasone-Salmeterol 250-50mcg Diskus INH SCH ×2 (08:49→17:20)
[2018-03-14] MEDS: Multivitamin With Minerals Tab PO SCH (08:50)
[2018-03-14] MEDS: HCTZ/Losartan 12.5/50 Tab PO SCH (08:51)
--- NOTE | 2018-03-14 11:54 | CP.PCM.PN ---
Subjective - Date & Time of Evaluation Date of Evaluation: 03/14/18 Time of Evaluation: 11:55 - Subjective Subjective: SOB IMPROVING STILL COUGHING DIURESED A LOT AFTER LASIX RX Objective - Vital Signs/Intake and Output Vital Signs (last 24 hours): Temp Pulse Resp BP Pulse Ox 97.1 F L 65 18 132/67 94 L 03/14/18 07:58 03/14/18 08:50 03/14/18 07:58 03/14/18 08:50 03/14/18 07:58 - Medications Medications: Current Medications Albuterol/Ipratropium (Duoneb 3 Mg/0.5 Mg (3 Ml) Ud) 3 ml INH RQ4 [facility] Last Admin: 03/14/18 11:38 Dose: 3 ml Apixaban (Eliquis) 5 mg PO Q12 [facility]; Protocol Last Admin: 03/14/18 08:49 Dose: 5 mg Aspirin (Aspirin Chewable) 81 mg PO DAILY [facility] Last Admin: 03/14/18 08:50 Dose: 81 mg Atorvastatin Calcium (Lipitor) 40 mg PO DAILY@2200 [facility] Carvedilol (Coreg) 6.25 mg PO BID [facility] Last Admin: 03/14/18 08:50 Dose: 6.25 mg Folic Acid (Folic Acid) 1 mg PO DAILY [facility] Last Admin: 03/14/18 08:51 Dose: 1 mg Furosemide (Lasix) 20 mg IVP DAILY [facility] Last Admin: 03/14/18 08:49 Dose: 20 mg HCTZ/Losartan Potassium (Hyzaar 12.5 Mg-50 Mg) 2 tab PO DAILY [facility] Last Admin: 03/14/18 08:51 Dose: 2 tab Isosorbide Mononitrate (Imdur Er) 30 mg PO DAILY [facility] Last Admin: 03/14/18 08:51 Dose: 30 mg Methylprednisolone (Solu-Medrol) 60 mg IV Q12 [facility] Last Admin: 03/14/18 08:49 Dose: 60 mg Multivitamins/Minerals (Therapeutic-M Tab) 1 tab PO DAILY [facility] Last Admin: 03/14/18 08:50 Dose: 1 tab Oxycodone/Acetaminophen (Percocet 5/325 Mg Tab) 1 tab PO Q4 PRN PRN Reason: Pain, moderate (4-7) Stop: 03/14/18 15:29 Last Admin: 03/12/18 06:17 Dose: 1 tab Promethazine HCl/Dextromethorphan (Phenergan Dm Syrup) 10 ml PO Q6 PRN PRN Reason: Cough Last Admin: 03/14/18 08:48 Dose: 10 ml Fluticasone/Salmeterol (Advair Diskus 250/50) 1 puff INH BID [facility] Last Admin: 03/14/18 08:49 Dose: 1 puff - Labs Labs: 03/11/18 06:43 03/13/18 05:17 PT 19.4 Seconds (9.8-13.1) H 03/10/18 18:25 INR 1.7 03/10/18 18:25 APTT 41.2 Seconds (25.6-37.1) H 03/10/18 18:25 - Constitutional Appears: Chronically Ill - Head Exam Head Exam: ATRAUMATIC, NORMAL INSPECTION, NORMOCEPHALIC - Eye Exam Eye Exam: EOMI, Normal appearance, PERRL Pupil Exam: NORMAL ACCOMODATION, PERRL - ENT Exam ENT Exam: Mucous Membranes Moist, Normal Exam - Neck Exam Neck Exam: Full ROM, Normal Inspection. absent: Lymphadenopathy - Respiratory Exam Respiratory Exam: Decreased Breath Sounds, Prolonged Expiratory Phase, Rales, NORMAL BREATHING PATTERN - Cardiovascular Exam Cardiovascular Exam: Irregular Rhythm, +S1, +S2. absent: Murmur - GI/Abdominal Exam GI & Abdominal Exam: Soft, Normal Bowel Sounds. absent: Tenderness - Rectal Exam Rectal Exam: NORMAL INSPECTION - Extremities Exam Extremities Exam: Full ROM, Normal Capillary Refill, Pedal Edema. absent: Joint Swelling - Back Exam Back Exam: NORMAL INSPECTION - Neurological Exam Neurological Exam: Alert, Awake, CN II-XII Intact, Normal Gait, Oriented x3 - Psychiatric Exam Psychiatric exam: Normal Affect, Normal Mood - Skin Skin Exam: Dry, Intact, Normal Color, Warm Assessment and Plan - Assessment and Plan (Free Text) Assessment: CHF IMPROVING ATRIAL FIB COPD DM Plan: CONTINUE RX ORDERED
[2018-03-14] MEDS: Insulin Regular 100 units/ml SC SCH ×2 (17:21→22:02)
[2018-03-14] MEDS: MethylPREDNISolone 40 mg Vial IV SCH (20:13)
[2018-03-14] MEDS ORDERED: Insulin Regular 100 units/ml SC STA (22:23)
[2018-03-15] MEDS: Albuterol-Ipratrop 3 mg / 0.5 (3 ml) UD INH SCH ×4 (03:22→15:27)
[2018-03-15 05:42] VITALS: RESP 18
[2018-03-15] MEDS: Promethazine DM 12.5 mg-30 mg/10 ml Syrup PO PRN ×2 (05:47→17:34)
[2018-03-15] MEDS: Insulin Regular 100 units/ml SC SCH ×2 (06:37→17:30)
--- NOTE | 2018-03-15 08:37 | CP.PCM.PN ---
Subjective - Date & Time of Evaluation Date of Evaluation: 03/15/18 Time of Evaluation: 08:38 - Subjective Subjective: CLINICALLY IMPROVING SOB LESS NO CHEST PAINS STILL WEAK WANTS TO GO TO SUBACUTE CARE OR TCU BEFORE D/C HOME Objective - Vital Signs/Intake and Output Vital Signs (last 24 hours): Temp Pulse Resp BP Pulse Ox 97.6 F 75 18 146/78 96 03/15/18 08:01 03/15/18 08:01 03/15/18 08:01 03/15/18 08:01 03/15/18 08:01 - Medications Medications: Current Medications Albuterol/Ipratropium (Duoneb 3 Mg/0.5 Mg (3 Ml) Ud) 3 ml INH RQ4 [facility] Last Admin: 03/15/18 07:34 Dose: 3 ml Apixaban (Eliquis) 5 mg PO Q12 [facility]; Protocol Last Admin: 03/14/18 20:13 Dose: 5 mg Aspirin (Aspirin Chewable) 81 mg PO DAILY [facility] Last Admin: 03/14/18 08:50 Dose: 81 mg Atorvastatin Calcium (Lipitor) 40 mg PO DAILY@2200 [facility] Last Admin: 03/14/18 21:07 Dose: 40 mg Carvedilol (Coreg) 6.25 mg PO BID [facility] Last Admin: 03/14/18 17:20 Dose: 6.25 mg Folic Acid (Folic Acid) 1 mg PO DAILY [facility] Last Admin: 03/14/18 08:51 Dose: 1 mg Furosemide (Lasix) 20 mg IVP DAILY [facility] Last Admin: 03/14/18 08:49 Dose: 20 mg HCTZ/Losartan Potassium (Hyzaar 12.5 Mg-50 Mg) 2 tab PO DAILY [facility] Last Admin: 03/14/18 08:51 Dose: 2 tab Insulin Human Regular (Humulin R) 0 units SC ACHS [facility]; Protocol Last Admin: 03/15/18 06:37 Dose: 4 unit Isosorbide Mononitrate (Imdur Er) 30 mg PO DAILY [facility] Last Admin: 03/14/18 08:51 Dose: 30 mg Methylprednisolone (Solu-Medrol) 40 mg IV Q12 [facility] Last Admin: 03/14/18 20:13 Dose: 40 mg Multivitamins/Minerals (Therapeutic-M Tab) 1 tab PO DAILY [facility] Last Admin: 03/14/18 08:50 Dose: 1 tab Promethazine HCl/Dextromethorphan (Phenergan Dm Syrup) 10 ml PO Q6 PRN PRN Reason: Cough Last Admin: 03/15/18 05:47 Dose: 10 ml Fluticasone/Salmeterol (Advair Diskus 250/50) 1 puff INH BID [facility] Last Admin: 03/14/18 17:20 Dose: 1 puff - Labs Labs: 03/11/18 06:43 03/13/18 05:17 PT 19.4 Seconds (9.8-13.1) H 03/10/18 18:25 INR 1.7 03/10/18 18:25 APTT 41.2 Seconds (25.6-37.1) H 03/10/18 18:25 - Constitutional Appears: Chronically Ill - Head Exam Head Exam: ATRAUMATIC, NORMAL INSPECTION, NORMOCEPHALIC - Eye Exam Eye Exam: EOMI, Normal appearance, PERRL Pupil Exam: NORMAL ACCOMODATION, PERRL - ENT Exam ENT Exam: Mucous Membranes Moist, Normal Exam - Neck Exam Neck Exam: Full ROM, Normal Inspection. absent: Lymphadenopathy - Respiratory Exam Respiratory Exam: Decreased Breath Sounds, Prolonged Expiratory Phase, Rales, NORMAL BREATHING PATTERN - Cardiovascular Exam Cardiovascular Exam: REGULAR RHYTHM, +S1, +S2. absent: Murmur - GI/Abdominal Exam GI & Abdominal Exam: Soft, Normal Bowel Sounds. absent: Tenderness - Rectal Exam Rectal Exam: NORMAL INSPECTION - Extremities Exam Extremities Exam: Full ROM, Normal Capillary Refill, Pedal Edema. absent: Joint Swelling - Back Exam Back Exam: NORMAL INSPECTION - Neurological Exam Neurological Exam: Alert, Awake, CN II-XII Intact, Normal Gait, Oriented x3 - Psychiatric Exam Psychiatric exam: Normal Affect, Normal Mood - Skin Skin Exam: Dry, Intact, Normal Color, Warm Assessment and Plan - Assessment and Plan (Free Text) Assessment: CHF COPD EXAC HYPERGLYCEMIA--PT DENIES HX OF DIABETES DECONDITIONING Plan: CONTINUE CURRENT RX WILL REFER FOR TCU/SUBACUTE CARE PLACEMENT
[2018-03-15] MEDS: MethylPREDNISolone 40 mg Vial IV SCH (08:51)
[2018-03-15] MEDS: Multivitamin With Minerals Tab PO SCH (08:51)
[2018-03-15] MEDS: HCTZ/Losartan 12.5/50 Tab PO SCH (08:54)
[2018-03-15] MEDS: Fluticasone-Salmeterol 250-50mcg Diskus INH SCH ×2 (08:57→17:28)
[2018-03-15 10:18] LABS: CALCIUM 7.8 mg/dL (8.4-10.2)
--- NOTE | 2018-03-15 11:51 | RAD ---
Date of service: 03/15/2018 PROCEDURE: CHEST RADIOGRAPH, 1 VIEW HISTORY: CHF COMPARISON: 03/12/2018. FINDINGS: LUNGS: The lungs are well inflated and clear. PLEURA: No pneumothorax or pleural effusion. CARDIOVASCULAR: There is severe cardiomegaly. Status post CABG. There are aortic atherosclerotic calcifications present. There is stable position of right-sided permanent pacing device. OSSEOUS STRUCTURES: Within normal limits for the patient's age. VISUALIZED UPPER ABDOMEN: Normal. OTHER FINDINGS: None. IMPRESSION: No active pulmonary disease. No radiographic evidence for congestive heart failure
[2018-03-15 15:33] VITALS: O2SAT 95
[2018-03-15 15:50] VITALS: TEMP 97.3
[2018-03-15 17:35] VITALS: BP 145/69; PULSE 71
--- NOTE | 2018-03-16 08:38 | CP.PCM.DIS ---
Provider - Provider Date of Admission: 03/10/18 19:24 Attending physician: Binh Blanca MD Consults: 03/10/18 19:26 Cardiology Consult Stat Comment: Consulting Provider: Gerardo Kincaid Consulting Physician: Gerardo Kincaid Reason for Consult: CHF resp failure Time Spent in preparation of Discharge (in minutes): 30 Diagnosis - Discharge Diagnosis (1) CHF (congestive heart failure) Status: Acute Priority: High (2) CHF exacerbation Status: Acute (3) COPD exacerbation Status: Acute Priority: High (4) Pacemaker Status: Acute (5) S/P CABG x 3 Status: Acute (6) Acute on 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 Status: Chronic (7) Diabetes Status: Chronic (8) HTN (hypertension) Status: Chronic (9) Hx of CABG Status: Chronic (10) DVT prophylaxis Status: Resolved Hospital Course - Lab Results Lab Results: Micro Results 03/12/18 05:00 Sputum Gram Stain - Final 03/12/18 05:00 Sputum Sputum Culture - Final NORMAL ORAL WENCESLAO Most Recent Lab Values WBC 4.7 K/uL (4.8-10.8) L 03/11/18 06:43 RBC 3.32 Mil/uL (4.40-5.90) L 03/11/18 06:43 Hgb 10.1 g/dL (12.0-18.0) L 03/11/18 06:43 Hct 31.4 % (35.0-51.0) L 03/11/18 06:43 MCV 94.7 fl (80.0-94.0) H D 03/11/18 06:43 MCH 30.4 pg (27.0-31.0) 03/11/18 06:43 MCHC 32.1 g/dL (33.0-37.0) L 03/11/18 06:43 RDW 13.9 % (11.5-14.5) 03/11/18 06:43 Plt Count 173 K/uL (130-400) 03/11/18 06:43 MPV 8.8 fl (7.2-11.7) 03/10/18 18:25 Neut % (Auto) 64.9 % (50.0-75.0) 03/10/18 18:25 Lymph % (Auto) 14.5 % (20.0-40.0) L 03/10/18 18:25 Walker % (Auto) 16.4 % (0.0-10.0) H 03/10/18 18:25 Eos % (Auto) 3.3 % (0.0-4.0) 03/10/18 18:25 Baso % (Auto) 0.9 % (0.0-2.0) 03/10/18 18:25 Neut # (Auto) 4.0 K/uL (1.8-7.0) 03/10/18 18:25 Lymph # (Auto) 0.9 K/uL (1.0-4.3) L 03/10/18 18:25 Walker # (Auto) 1.0 K/uL (0.0-0.8) H 03/10/18 18:25 Eos # (Auto) 0.2 K/uL (0.0-0.7) 03/10/18 18:25 Baso # (Auto) 0.1 K/uL (0.0-0.2) 03/10/18 18:25 PT 19.4 Seconds (9.8-13.1) H 03/10/18 18:25 INR 1.7 03/10/18 18:25 APTT 41.2 Seconds (25.6-37.1) H 03/10/18 18:25 Sodium 134 mmol/l (132-148) 03/15/18 09:55 Potassium 4.4 MMOL/L (3.6-5.0) 03/15/18 09:55 Chloride 93 mmol/L (98-107) L 03/15/18 09:55 Carbon Dioxide 29 mmol/L (22-30) 03/15/18 09:55 Anion Gap 16 (10-20) 03/15/18 09:55 BUN 74 mg/dl (9-20) H 03/15/18 09:55 Creatinine 1.7 mg/dl (0.8-1.5) H 03/15/18 09:55 Est GFR ( Amer) 48 03/15/18 09:55 Est GFR (Non-Af Amer) 39 03/15/18 09:55 POC Glucose (mg/dL) 373 mg/dL (65-110) H 03/15/18 16:13 Random Glucose 371 mg/dL (75-110) H 03/15/18 09:55 Calcium 7.8 mg/dL (8.4-10.2) L 03/15/18 09:55 Total Bilirubin 0.8 mg/dl (0.2-1.3) 03/10/18 18:25 AST 28 U/L (17-59) 03/10/18 18:25 ALT 31 U/L (21-72) 03/10/18 18:25 Alkaline Phosphatase 90 U/L (38-126) 03/10/18 18:25 Troponin I < 0.0120 ng/mL (0.00-0.120) 03/10/18 18:25 NT-Pro-B Natriuret Pep 2020 pg/ml (0-900) H 03/13/18 05:17 Total Protein 6.5 G/DL (6.3-8.2) 03/10/18 18:25 Albumin 3.8 g/dL (3.5-5.0) 03/10/18 18:25 Globulin 2.7 gm/dL (2.2-3.9) 03/10/18 18:25 Albumin/Globulin Ratio 1.4 (1.0-2.1) 03/10/18 18:25 Triglycerides 72 mg/DL (0-149) D 03/11/18 06:43 Cholesterol 81 mg/dL (0-199) 03/11/18 06:43 LDL Cholesterol Direct 61 mg/dL (0-129) 03/11/18 06:43 HDL Cholesterol 22 MG/DL (30-70) L 03/11/18 06:43 Urine Color Straw (YELLOW) 03/10/18 19:21 Urine Clarity Clear (Clear) 03/10/18 19:21 Urine pH 6.0 (5.0-8.0) 03/10/18 19:21 Ur Specific Driver 1.008 (1.003-1.030) 03/10/18 19:21 Urine Protein Negative mg/dL (NEGATIVE) 03/10/18 19:21 Urine Glucose (UA) Neg mg/dL (NEGATIVE) 03/10/18 19:21 Urine Ketones Negative mg/dL (NEGATIVE) 03/10/18 19:21 Urine Blood Negative (NEGATIVE) 03/10/18 19:21 Urine Nitrate Negative (NEGATIVE) 03/10/18 19:21 Urine Bilirubin Negative (NEGATIVE) 03/10/18 19:21 Urine Urobilinogen 0.2-1.0 mg/dL (0.2-1.0) 03/10/18 19:21 Ur Leukocyte Esterase Neg Henry/uL (Negative) 03/10/18 19:21 Urine RBC (Auto) < 1 /hpf (0-3) 03/10/18 19:21 Influenza Typ A,B (EIA) Negative for flu a/b (NEGATIVE) 03/10/18 18:19 - Hospital Course Hospital Course: STILL DYSPNEIC AT REST AND ON MILD EXERTION COUGH LESS Discharge Exam - Head Exam Head Exam: ATRAUMATIC, NORMAL INSPECTION, NORMOCEPHALIC - Eye Exam Eye Exam: EOMI, Normal appearance, PERRL Pupil Exam: NORMAL ACCOMODATION, PERRL - Respiratory Exam Respiratory Exam: Decreased Breath Sounds, Rales, Wheezes, Respiratory Distress - Cardiovascular Exam Cardiovascular Exam: REGULAR RHYTHM Additional comments: PACEMAKER IN PLACE - GI/Abdominal Exam GI & Abdominal Exam: Normal Bowel Sounds - Rectal Exam Rectal Exam: NORMAL INSPECTION - Extremities Exam Extremities exam: pedal edema - Neurological Exam Neurological exam: Alert, CN II-XII Intact, Normal Gait, Oriented x3, Reflexes Normal - Psychiatric Exam Psychiatric exam: Normal Affect, Normal Mood - Skin Skin Exam: Dry, Intact, Normal Color, Warm Discharge Plan - Discharge Medications Prescriptions: methylPREDNISolone [Solu-Medrol] 40 mg IV Q12 #10 ml - Follow Up Plan Condition: FAIR Disposition: REHAB FACILITY/REHAB UNIT Instructions: Heart Failure, Adult (DC), Exacerbation of COPD (DC) Additional Instructions: TRANSFER TO TCU Referrals: Gabriela Reinoso MD [Family Provider] - Binh Blanca MD [Staff Provider] - Gerardo Kincaid MD [Staff Provider] -
== END 2018-03-15 18:05 | DRG 190 ==
LOC: H.ER 17:57 → H.ERHOLD 19:24 → H.TEL 21:01
PROVIDERS: ADMIT Internal Medicine Pulmonary Disease; ATTEND Internal Medicine Pulmonary Disease
PROC: 3E0F73Z Introduction of Anti-inflammatory into Respiratory Tract, Via Natural or Artificial Opening (ICD-10-PCS; principal; 2018-03-10)
DX: J44.1 Chronic obstructive pulmonary disease with (acute) exacerbation (principal); I50.33 Acute on chronic diastolic (congestive) heart failure; I11.0 Hypertensive heart disease with heart failure; I48.2 Chronic atrial fibrillation; I25.10 Atherosclerotic heart disease of native coronary artery without angina pectoris; E11.65 Type 2 diabetes mellitus with hyperglycemia; F03.90 Unspecified dementia, unspecified severity, without behavioral disturbance, psychotic disturbance, mood disturbance, and anxiety; E78.00 Pure hypercholesterolemia, unspecified; D64.9 Anemia, unspecified; M19.90 Unspecified osteoarthritis, unspecified site; Z79.01 Long term (current) use of anticoagulants; Z79.82 Long term (current) use of aspirin; Z95.1 Presence of aortocoronary bypass graft; Z95.0 Presence of cardiac pacemaker; Z86.73 Personal history of transient ischemic attack (TIA), and cerebral infarction without residual deficits; Z87.01 Personal history of pneumonia (recurrent); Z87.891 Personal history of nicotine dependence

== ENCOUNTER 2018-03-15 15:21 | Inpatient (IN) | payer OTHER, BC ==
[2018-03-15 18:04] VITALS: BMI 42.3
[2018-03-15] MEDS ORDERED: Glucagon Recombinant 1 mg Inj IM PRN (18:12)
[2018-03-15] MEDS ORDERED: Dextrose 50% SYRINGE Inj (50 ml) IV PRN (18:12)
[2018-03-15] MEDS: Albuterol-Ipratrop 3 mg / 0.5 (3 ml) UD INH SCH ×2 (19:32→23:53)
[2018-03-15] MEDS: Promethazine DM 12.5 mg-30 mg/10 ml Syrup PO PRN (22:34)
[2018-03-15] MEDS: MethylPREDNISolone 40 mg Vial IV SCH (22:35)
[2018-03-15] MEDS: Insulin Regular 100 units/ml SC SCH (22:35)
[2018-03-16] MEDS: Albuterol-Ipratrop 3 mg / 0.5 (3 ml) UD INH SCH ×5 (04:14→19:24)
[2018-03-16] MEDS: Insulin Regular 100 units/ml SC SCH ×4 (06:31→21:03)
[2018-03-16] MEDS: MethylPREDNISolone 40 mg Vial IV SCH (09:05)
[2018-03-16] MEDS: Fluticasone-Salmeterol 250-50mcg Diskus INH SCH ×2 (09:06→16:01)
[2018-03-16] MEDS: Multivitamin With Minerals Tab PO SCH (09:08)
[2018-03-16] MEDS: HCTZ/Losartan 12.5/50 Tab PO SCH (09:08)
[2018-03-16] MEDS: Promethazine DM 12.5 mg-30 mg/10 ml Syrup PO PRN ×2 (09:09→16:00)
--- NOTE | 2018-03-16 11:11 | RAD ---
Date of service: 03/16/2018 HISTORY: CHF COMPARISON: 03/15/2018 TECHNIQUE: Chest PA and lateral FINDINGS: LUNGS: No active pulmonary disease. PLEURA: No significant pleural effusion identified. No pneumothorax apparent. CARDIOVASCULAR: There is atherosclerotic calcification of the thoracic Aorta. Normal heart size. Sternotomy wires. Permanent pacemaker. No pulmonary vascular congestion. OSSEOUS STRUCTURES: No significant abnormalities. VISUALIZED UPPER ABDOMEN: Normal. OTHER FINDINGS: None. IMPRESSION: No active disease.
[2018-03-16] MEDS ORDERED: DiphenhydrAMINE 12.5 mg/5 ml LIQ UD (5 ml) PO PRN (21:00)
[2018-03-17] MEDS: Albuterol-Ipratrop 3 mg / 0.5 (3 ml) UD INH SCH ×5 (00:12→15:58)
--- NOTE | 2018-03-17 01:45 | CARD ---
APPROVED REPORT Date of service: 03/16/2018 EKG Measurement Heart [id number] <Conclusion> Ventricular-paced rhythm Abnormal ECG
[2018-03-17] MEDS: Insulin Regular 100 units/ml SC SCH ×3 (06:49→16:35)
[2018-03-17] MEDS: Promethazine DM 12.5 mg-30 mg/10 ml Syrup PO PRN ×2 (06:52→18:20)
[2018-03-17 07:01] LABS: BASO % 0.1 % (0.0-2.0); EOS % 0.1 % (0.0-4.0); HEMOGLOBIN 10.8 g/dL (12.0-18.0); LYMPH # 0.8 K/uL (1.0-4.3); LYMPH % 8.9 % (20.0-40.0); MEAN CELL VOLUME 90.6 fl (80.0-94.0); MEAN CORPUSCULAR HEMOGLOBIN 30.6 pg (27.0-31.0); MEAN CORPUSCULAR HGB CONC 33.8 g/dL (33.0-37.0); MEAN PLATELET VOLUME 8.9 fl (7.2-11.7); MONO # 1.1 K/uL (0.0-0.8); MONO % 12.1 % (0.0-10.0); NEUT # 7.1 K/uL (1.8-7.0); NEUT % 78.8 % (50.0-75.0); NRBC % 0.2 % (0.0-0.0); PLATELET COUNT 184 K/uL (130-400); RBC 3.52 Mil/uL (4.40-5.90); RED CELL DISTRIBUTION WIDTH 13.8 % (11.5-14.5)
[2018-03-17 07:02] LABS: CALCIUM 8.1 mg/dL (8.4-10.2)
[2018-03-17 08:59] LABS: LYMPHOCYTE 7 % (20-50); MONOCYTE 9 % (0-10); NEUTROPHIL 84 % (42-75); PLATELET ESTIMATE NORMAL (NORMAL); TOTAL CELLS COUNTED 100
[2018-03-17] MEDS ORDERED: MethylPREDNISolone 40 mg Vial IVP SCH (09:00)
[2018-03-17] MEDS ORDERED: methylPREDNISolone 40 MG in Sodium Chloride 0.9% 50 ML IV SCH (09:00)
[2018-03-17 09:01] LABS: ANISOCYTOSIS SLIGHT; BURR CELLS SLIGHT; LARGE PLATELETS PRESENT; OVALOCYTES SLIGHT
[2018-03-17] MEDS: HCTZ/Losartan 12.5/50 Tab PO SCH (09:23)
[2018-03-17] MEDS: Fluticasone-Salmeterol 250-50mcg Diskus INH SCH ×2 (09:23→16:34)
[2018-03-17] MEDS: Multivitamin With Minerals Tab PO SCH (09:24)
--- NOTE | 2018-03-17 09:31 | HP ---
HISTORY OF PRESENT ILLNESS: The patient is a 77-year-old male who was admitted to the medical floor, then was transferred to the transitional care unit. He was admitted with altered mental status and shortness of breath and found to be in congestive heart failure and also has chronic obstructive pulmonary disease exacerbation. He remained on the medical floor where he was treated for both ailments and because of persistent shortness of breath and exercise intolerance with pedal edema, he was transferred to the transitional care unit for further therapy and treatment of deconditioning. PAST MEDICAL HISTORY: He has a past medical history of congestive heart failure, both diastolic and systolic. He also has a history of chronic obstructive pulmonary disease; coronary artery bypass graft, status post pacemaker placement; history of atrial fibrillation in the past; history of chronic anemia; severe arthritis of multiple joints; mild dementia; diabetes mellitus; and hypertension. FAMILY HISTORY: Noncontributory. SOCIAL HISTORY: He indicates that he used to smoke, but quit years ago. REVIEW OF SYSTEMS: Essentially remarkable for shortness of breath, exercise intolerance and swelling of legs. PHYSICAL EXAMINATION: GENERAL: The patient is alert, oriented, is able to ambulate from bed to the bathroom. Still has exertional dyspnea. VITAL SIGNS: Reviewed and stable. SKIN: Shows fair turgor. HEENT: Pupils are equal and reactive to light and accommodation. JVP flat. Mouth shows fair hygiene. LUNGS: Bilateral scattered rales and wheezing with dullness at the bases. HEART: S1 and S2 with scar of coronary artery bypass graft noted. Pacemaker is in place. ABDOMEN: Soft, nontender. No organomegaly. EXTREMITIES: Remarkable for 1+ pitting pedal edema, improved since admission. CENTRAL NERVOUS SYSTEM: Gait is steady, but needs assistance with ambulation. He is also forgetful, otherwise unremarkable. LABORATORY DATA: Pending. IMPRESSION: 1. Acute exacerbation of chronic obstructive pulmonary disease. 2. Congestive heart failure, acute on chronic, both diastolic and systolic dysfunction. 3. Hyperglycemia despite the patient is denying history of diabetes mellitus. 4. Hypertension, poorly controlled. 5. Mild dementia. 6. History of coronary artery bypass graft. PLAN: Monitor the patient in transitional care. We will monitor blood sugar closely and treat appropriately. Continue diuretic therapy, oxygen therapy as well as bronchodilators and steroids. Further therapy will depend on findings. Cardiology followup as needed. Binh Blanca MD [facility] # [id number]
--- NOTE | 2018-03-17 10:48 | CP.PCM.PN ---
Subjective - Date & Time of Evaluation Date of Evaluation: 03/17/18 Time of Evaluation: 10:49 - Subjective Subjective: SOB IMPROVED NO CHEST PAINS PEDAL EDEMA IMPROVING Objective - Vital Signs/Intake and Output Vital Signs (last 24 hours): Temp Pulse Resp BP Pulse Ox 97.6 F 80 22 152/72 H 94 L 03/17/18 07:48 03/17/18 09:24 03/17/18 07:48 03/17/18 09:24 03/17/18 07:48 - Medications Medications: Current Medications Albuterol/Ipratropium (Duoneb 3 Mg/0.5 Mg (3 Ml) Ud) 3 ml INH RQ4 [facility] Last Admin: 03/17/18 07:30 Dose: 3 ml Apixaban (Eliquis) 5 mg PO Q12 [facility]; Protocol Last Admin: 03/17/18 09:23 Dose: 5 mg Aspirin (Aspirin Chewable) 81 mg PO DAILY [facility] Last Admin: 03/17/18 09:24 Dose: 81 mg Atorvastatin Calcium (Lipitor) 40 mg PO DAILY [facility] Last Admin: 03/17/18 09:24 Dose: 40 mg Carvedilol (Coreg) 6.25 mg PO BID [facility] Last Admin: 03/17/18 09:24 Dose: 6.25 mg Dextrose (Dextrose 50% Inj) 0 ml IV STAT PRN; Protocol PRN Reason: Hypoglycemia Protocol Dextrose (Glutose 15) 0 gm PO ONCE PRN; Protocol PRN Reason: Hypoglycemia Protocol Diphenhydramine HCl (Benadryl) 12.5 mg PO HS PRN PRN Reason: Insomnia Last Admin: 03/16/18 21:02 Dose: 12.5 mg Folic Acid (Folic Acid) 1 mg PO DAILY [facility] Last Admin: 03/17/18 09:24 Dose: 1 mg Furosemide (Lasix) 20 mg PO MWF [facility] Glucagon (Glucagen Diagnostic Kit) 0 mg IM STAT PRN; Protocol PRN Reason: Hypoglycemia Protocol HCTZ/Losartan Potassium (Hyzaar 12.5 Mg-50 Mg) 2 tab PO DAILY [facility] Last Admin: 03/17/18 09:23 Dose: 2 tab Insulin Human Regular (Humulin R) 0 units SC ACHS [facility]; Protocol Last Admin: 03/17/18 06:49 Dose: 3 units Isosorbide Mononitrate (Imdur Er) 30 mg PO DAILY [facility] Last Admin: 03/17/18 09:23 Dose: 30 mg Multivitamins/Minerals (Therapeutic-M Tab) 1 tab PO DAILY [facility] Last Admin: 03/17/18 09:24 Dose: 1 tab Promethazine HCl/Dextromethorphan (Phenergan Dm Syrup) 10 ml PO Q6 PRN PRN Reason: Cough Last Admin: 03/17/18 06:52 Dose: 10 ml Fluticasone/Salmeterol (Advair Diskus 250/50) 1 puff INH BID [facility] Last Admin: 03/17/18 09:23 Dose: 1 puff - Labs Labs: 03/17/18 06:00 03/17/18 06:00 - Constitutional Appears: No Acute Distress - Head Exam Head Exam: ATRAUMATIC, NORMAL INSPECTION, NORMOCEPHALIC - Eye Exam Eye Exam: EOMI, Normal appearance, PERRL Pupil Exam: NORMAL ACCOMODATION, PERRL - ENT Exam ENT Exam: Mucous Membranes Moist, Normal Exam - Neck Exam Neck Exam: Full ROM, Normal Inspection. absent: Lymphadenopathy - Respiratory Exam Respiratory Exam: Prolonged Expiratory Phase, NORMAL BREATHING PATTERN - Cardiovascular Exam Cardiovascular Exam: REGULAR RHYTHM, +S1, +S2. absent: Murmur - GI/Abdominal Exam GI & Abdominal Exam: Soft, Normal Bowel Sounds. absent: Tenderness - Rectal Exam Rectal Exam: NORMAL INSPECTION - Extremities Exam Extremities Exam: Full ROM, Normal Capillary Refill, Pedal Edema. absent: Joint Swelling Additional comments: PEDAL EDEMA LESS - Back Exam Back Exam: NORMAL INSPECTION - Neurological Exam Neurological Exam: Alert, Awake, CN II-XII Intact, Normal Gait, Oriented x3 - Psychiatric Exam Psychiatric exam: Normal Affect, Normal Mood - Skin Skin Exam: Dry, Intact, Normal Color, Warm Assessment and Plan - Assessment and Plan (Free Text) Assessment: CHF--IMPROVING CHRONIC ANEMIA COPD IMPROVING PRERENAL AZOTEMIA HTN DIABETES Plan: TAPER STEROIDS ADD GLIPIZIDE TO RX CHANGE LASIX TO MWF
[2018-03-17 15:43] VITALS: BP 149/73; PULSE 74; RESP 20; TEMP 97.8; O2SAT 91
--- NOTE | 2018-03-17 23:06 | CARD ---
APPROVED REPORT Date of service: 03/17/2018 EKG Measurement Heart [id number] <Conclusion> Ventricular-paced rhythm Abnormal ECG
--- NOTE | 2018-03-18 10:45 | CP.PCM.DIS ---
Provider - Provider Date of Admission: 03/15/18 18:06 Attending physician: Binh Blanca MD Consults: 03/15/18 18:06 Case Management Referral Routine Comment: Physician Instructions: Reason For Exam: Reason for Referral: Discharge Planning 03/17/18 11:00 Wound Care [Nursing Referral for Wound Care] Routine Comment: Physician Instructions: Reason For Exam: redness in groin folds Time Spent in preparation of Discharge (in minutes): 30 Diagnosis - Discharge Diagnosis (1) CHF (congestive heart failure) Status: Acute (2) Hospital acquired PNA Status: Acute (3) Visual disturbance Status: Acute (4) COPD exacerbation Status: Acute Priority: High (5) Dyspnea Status: Acute (6) Pacemaker Status: Acute (7) Pneumonia Status: Acute (8) S/P CABG x 3 Status: Acute (9) Atrial fibrillation Status: Chronic Priority: High (10) CAD (coronary artery disease) Status: Chronic (11) COPD (chronic obstructive pulmonary disease) Status: Chronic (12) Coronary atherosclerosis of [place] coronary artery Status: Chronic (13) Diabetes Status: Chronic (14) HTN (hypertension) Status: Chronic (15) Hx of CABG Status: Chronic Hospital Course - Lab Results Lab Results: Most Recent Lab Values WBC 9.0 K/uL (4.8-10.8) D 03/17/18 06:00 RBC 3.52 Mil/uL (4.40-5.90) L 03/17/18 06:00 Hgb 10.8 g/dL (12.0-18.0) L 03/17/18 06:00 Hct 31.9 % (35.0-51.0) L 03/17/18 06:00 MCV 90.6 fl (80.0-94.0) D 03/17/18 06:00 MCH 30.6 pg (27.0-31.0) 03/17/18 06:00 MCHC 33.8 g/dL (33.0-37.0) 03/17/18 06:00 RDW 13.8 % (11.5-14.5) 03/17/18 06:00 Plt Count 184 K/uL (130-400) 03/17/18 06:00 MPV 8.9 fl (7.2-11.7) 03/17/18 06:00 Neut % (Auto) 78.8 % (50.0-75.0) H 03/17/18 06:00 Lymph % (Auto) 8.9 % (20.0-40.0) L 03/17/18 06:00 Osborne % (Auto) 12.1 % (0.0-10.0) H 03/17/18 06:00 Eos % (Auto) 0.1 % (0.0-4.0) 03/17/18 06:00 Baso % (Auto) 0.1 % (0.0-2.0) 03/17/18 06:00 Neut # (Auto) 7.1 K/uL (1.8-7.0) H 03/17/18 06:00 Lymph # (Auto) 0.8 K/uL (1.0-4.3) L 03/17/18 06:00 Osborne # (Auto) 1.1 K/uL (0.0-0.8) H 03/17/18 06:00 Eos # (Auto) 0.0 K/uL (0.0-0.7) 03/17/18 06:00 Baso # (Auto) 0.0 K/uL (0.0-0.2) 03/17/18 06:00 Neutrophils % (Manual) 84 % (42-75) H 03/17/18 06:00 Lymphocytes % (Manual) 7 % (20-50) L 03/17/18 06:00 Monocytes % (Manual) 9 % (0-10) 03/17/18 06:00 Platelet Estimate Normal (NORMAL) 03/17/18 06:00 Large Platelets Present 03/17/18 06:00 Anisocytosis (manual) Slight 03/17/18 06:00 Ovalocytes Slight 03/17/18 06:00 Louis Cells Slight 03/17/18 06:00 Sodium 133 mmol/l (132-148) 03/17/18 06:00 Potassium 4.3 MMOL/L (3.6-5.0) 03/17/18 06:00 Chloride 93 mmol/L (98-107) L 03/17/18 06:00 Carbon Dioxide 31 mmol/L (22-30) H 03/17/18 06:00 Anion Gap 13 (10-20) 03/17/18 06:00 BUN 65 mg/dl (9-20) H 03/17/18 06:00 Creatinine 1.4 mg/dl (0.8-1.5) 03/17/18 06:00 Est GFR ( Amer) 60 03/17/18 06:00 Est GFR (Non-Af Amer) 49 03/17/18 06:00 POC Glucose (mg/dL) 310 mg/dL (65-110) H 03/17/18 15:54 Random Glucose 259 mg/dL (75-110) H 03/17/18 06:00 Calcium 8.1 mg/dL (8.4-10.2) L 03/17/18 06:00 NT-Pro-B Natriuret Pep 3110 pg/ml (0-900) H 03/17/18 06:00 - Hospital Course Hospital Course: C/O BLURRY VISION AND COUGHING UP OF BLOOD Discharge Exam - Head Exam Head Exam: ATRAUMATIC, NORMAL INSPECTION, NORMOCEPHALIC - Eye Exam Eye Exam: EOMI, Normal appearance, PERRL Pupil Exam: NORMAL ACCOMODATION, PERRL - Respiratory Exam Respiratory Exam: Decreased Breath Sounds, Prolonged Expiratory Phase, Rales - GI/Abdominal Exam GI & Abdominal Exam: Normal Bowel Sounds - Rectal Exam Rectal Exam: NORMAL INSPECTION - Extremities Exam Extremities exam: pedal edema - Neurological Exam Neurological exam: Alert, CN II-XII Intact, Normal Gait, Oriented x3, Reflexes Normal - Psychiatric Exam Psychiatric exam: Normal Affect, Normal Mood - Skin Skin Exam: Dry, Intact, Normal Color, Warm Discharge Plan - Follow Up Plan Condition: GOOD Disposition: Transfer [facility] Instructions: Heart Failure, Adult (DC), Exacerbation of COPD (DC) Additional Instructions: Evaluate in the er
== END 2018-03-17 19:10 | disposition short-term general hospital (02) | DRG 190 ==
LOC: H.TCU 18:06
PROVIDERS: ADMIT Internal Medicine Pulmonary Disease; ATTEND Internal Medicine Pulmonary Disease
PROC: 3E0F73Z Introduction of Anti-inflammatory into Respiratory Tract, Via Natural or Artificial Opening (ICD-10-PCS; principal; 2018-03-15)
PROC: F07Z9FZ Gait Training/Functional Ambulation Treatment using Assistive, Adaptive, Supportive or Protective Equipment (ICD-10-PCS; 2018-03-15)
PROC: F08Z4FZ Home Management Treatment using Assistive, Adaptive, Supportive or Protective Equipment (ICD-10-PCS; 2018-03-15)
PROC: F07M6FZ Therapeutic Exercise Treatment of Musculoskeletal System - Whole Body using Assistive, Adaptive, Supportive or Protective Equipment (ICD-10-PCS; 2018-03-16)
DX: J44.1 Chronic obstructive pulmonary disease with (acute) exacerbation (principal); I50.43 Acute on chronic combined systolic (congestive) and diastolic (congestive) heart failure; E11.65 Type 2 diabetes mellitus with hyperglycemia; F03.90 Unspecified dementia, unspecified severity, without behavioral disturbance, psychotic disturbance, mood disturbance, and anxiety; I11.0 Hypertensive heart disease with heart failure; I25.10 Atherosclerotic heart disease of native coronary artery without angina pectoris; I48.2 Chronic atrial fibrillation; D64.9 Anemia, unspecified; Z87.01 Personal history of pneumonia (recurrent); M19.90 Unspecified osteoarthritis, unspecified site; Z87.891 Personal history of nicotine dependence; Z95.0 Presence of cardiac pacemaker; Z95.1 Presence of aortocoronary bypass graft

== ENCOUNTER 2018-03-17 19:17 | Inpatient (IN) | payer MEDICARE, BC ==
[2018-03-17 20:56] LABS: URINE BILIRUBIN NEGATIVE (NEGATIVE); URINE BLOOD NEGATIVE (NEGATIVE); URINE CLARITY CLEAR (Clear); URINE COLOR YELLOW (YELLOW); URINE GLUCOSE (UA) >=500 mg/dL (NEGATIVE); URINE LEUKOCYTE ESTERASE NEG Leu/uL (Negative); URINE PROTEIN NEGATIVE (NEGATIVE); URINE UROBILINOGEN 0.2-1.0 mg/dL (0.2-1.0)
[2018-03-17 21:04] LABS: ALB/GLOB RATIO 1.5 (1.0-2.1); ALBUMIN 3.6 g/dL (3.5-5.0); CALCIUM 8.2 mg/dL (8.4-10.2)
[2018-03-17 21:08] LABS: INR 1.3; PROTHROMBIN TIME 14.6 Seconds (9.8-13.1)
[2018-03-17 21:11] LABS: PARTIAL THROMBOPLASTIN TIME 32.1 Seconds (25.6-37.1)
--- NOTE | 2018-03-17 21:12 | ED PDOC ---
HPI: General Adult Time Seen by Provider: 03/17/18 19:41 Chief Complaint (Nursing): Eye Problem Chief Complaint (Provider): Eye Problem History Per: Patient History/Exam Limitations: no limitations Onset/Duration Of Symptoms: Days (x 1) Current Symptoms Are (Timing): Still Present Additional Complaint(s): 77 year old male with a history of CHF, COPD and hypertension presents to the ED for evaluation of blurred vision and a productive cough, onset today. Patient was admitted to this hospital a week ago and has been in the rehab unit for two days. Cough has become worse and is productive of pinkish phlegm at times. In the middle of rehab today, he began to feel like vision was not focused. 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 Denies nausea, vomiting, diarrhea, sweats and weakness. PMD: Dr. Reinoso Past Medical History Reviewed: Historical Data, Nursing Documentation, Vital Signs Vital Signs: Last Vital Signs Temp 98.3 F 03/17/18 19:43 Pulse 60 03/17/18 19:43 Resp 16 03/17/18 19:43 BP 128/61 03/17/18 19:43 Pulse Ox 93 L 03/17/18 19:43 - Medical History PMH: Anemia, Arthritis, Atrial Fibrillation, Bronchitis, CAD, CHF, COPD, CVA (mild), Dementia, Diabetes (type II), Emphysema, Gastritis, HTN, Hypercholesterolemia, Peripheral Edema, Pneumonia, Chronic Kidney Disease (CKD) Denies: HIV - Surgical History Surgical History: CABG (in 2005), Pacemaker (11/2017) - Family History Family History: States: Unknown Family Hx, CAD, Diabetes (father) - Immunization History Hx Tetanus Toxoid Vaccination: No Hx Influenza Vaccination: Yes Hx Pneumococcal Vaccination: No - Home Medications Home Medications: Ambulatory Orders Medication Instructions Recorded RX: Atorvastatin [Lipitor] 40 mg PO DAILY tab 11/23/17 RX: Folic Acid 1 mg PO DAILY tab 11/23/17 RX: Isosorbide Mononitrate ER 30 mg PO DAILY tab 11/23/17 [Imdur ER] RX: Apixaban [Eliquis] 5 mg PO Q12 #60 tab 12/13/17 RX: Aspirin [Aspirin Chewable] 81 mg PO DAILY 03/10/18 Fluticasone/Salmeterol 250/50 1 puff .ROUTE BID 03/15/18 [Advair Diskus 250/50] Promethazine DM [Phenergan DM 10 ml PO Q6 PRN 03/15/18 Syrup] RX: Albuterol/Ipratropium [Duoneb 3 ml INH RQ4 neb 03/15/18 3 mg/0.5 mg (3 ml) UD] RX: methylPREDNISolone 40 mg IV Q12 #10 ml 03/15/18 [Solu-Medrol] Carvedilol [Coreg] 6.25 mg PO BID 03/18/18 Dextrose Oral [Glutose 15] 15 g PO ONCE PRN 03/18/18 DiphenhydrAMINE [Diphenhydramine 12.5 mg PO PRN PRN 03/18/18 HCl] GlipiZIDE [Glucotrol] 5 mg PO DAILY 03/18/18 Glucagon [Glucagen Diagnostic Kit] 1 mg IM PRN PRN 03/18/18 Insulin Human Regular [HumuLIN R] 03/18/18 RX: Furosemide [Lasix] 20 mg PO MWF 03/18/18 - Allergies Allergies/Adverse Reactions: Allergies Allergy/AdvReac Type Severity Reaction Status Date / Time No Known Allergies Allergy Verified 03/17/18 19:42 Review of Systems ROS Statement: Except As Marked, All Systems Reviewed And Found Negative Constitutional: Negative for: Fever, Chills, Sweats, Weakness Eyes: Positive for: Vision Change (vision is not focused) Respiratory: Positive for: Cough, Hemoptysis (sometimes) Gastrointestinal: Negative for: Nausea, Vomiting, Abdominal Pain, Diarrhea Physical Exam - Reviewed Nursing Documentation Reviewed: Yes Vital Signs Reviewed: Yes - Physical Exam Appears: Positive for: Non-toxic, No Acute Distress Head Exam: Positive for: ATRAUMATIC, NORMAL INSPECTION, NORMOCEPHALIC Skin: Positive for: Normal Color, Warm, Dry Eye Exam: Positive for: Normal appearance, EOMI, Other (right pupil measures 5 mm. left pupil 3 mm) Neck: Positive for: Normal, Painless ROM, Supple Cardiovascular/Chest: Positive for: Regular Rate, Rhythm. Negative for: Murmur Respiratory: Positive for: Crackles (faint crackles at right base), Wheezing (bilaterally). Negative for: Respiratory Distress Gastrointestinal/Abdominal: Positive for: Normal Exam, Soft. Negative for: Tenderness Extremity: Positive for: Normal ROM (x 4). Negative for: Deformity Neurologic/Psych: Positive for: Alert, Oriented (x 3). Negative for: Motor/Sensory Deficits - Laboratory Results Result Diagrams: 03/17/18 20:35 03/17/18 20:35 - ECG O2 Sat by Pulse Oximetry: 93 (RA) Pulse Ox Interpretation: Normal Medical Decision Making Medical Decision Makin:01 Impression: 77 year old male with visual changes Initial Plan: --head CT --EKG --BNP --CMP --Troponin --urine dip --CBC --PTT --PT --CXR --UA --Influenza AB --Visual acuity 21:[address] FINDINGS: BRAIN Chronic periventricular and subcortical microvascular disease is seen. VENTRICLES: There is generalized parenchymal atrophy noted as demonstrated by symmetrical dilatation of ventricles and sulci. ORBITS: The orbits are unremarkable. SINUSES AND MASTOIDS: The paranasal sinuses and mastoid air cells are clear. BONES: No fracture. SOFT TISSUES: Unremarkable. MISCELLANEOUS: No acute intracranial pathology. IMPRESSION: 1. There is generalized parenchymal atrophy noted as demonstrated by symmetrical dilatation of ventricles and sulci. 2. Chronic periventricular and subcortical microvascular disease is seen. 3. No acute intracranial pathology. 22:08 CXR FINDINGS: LUNGS: There is evidence for pulmonary venous congestion compatible with mild CHF. PLEURAL SPACES: No evidence of pleural effusion or pneumothorax. MEDIASTINUM: The cardiac silhouette is enlarged. BONES: No acute osseous abnormality. MISCELLANEOUS: S/p median sternotomy and CABG. Pacemaker is noted in the right chest wall. IMPRESSION: 1. S/p median sternotomy and CABG. 2. Pacemaker is noted in the right chest wall. 3. The cardiac silhouette is enlarged. 4. There is evidence for pulmonary venous congestion compatible with mild CHF. 22:07 CXR shows large area of consolidation in right lower lobe as well as cardiomegaly. Labs reveal leukocytosis and elevated BUN levels. Leukocytosis may be related to steroids the patient takes for COPD. BUN levels could be due to aggressive diuresis. Workup and presentation are consistent with pneumonia. There is no evidence for central cause of visual changes. Case discussed with Dr. Blanca. Patient will be admitted due to pneumonia and visual changes. Scribe Attestation: Documented by Tere Moran acting as a scribe for Alex Esqueda MD Provider Scribe Attestation: All medical record entries made by the Scribe were at my direction and personally dictated by me. I have reviewed the chart and agree that the record accurately reflects my personal performance of the history, physical exam, medical decision making, and the department course for this patient. I have also personally directed, reviewed, and agree with the discharge instructions and disposition. Disposition - Clinical Impression Clinical Impression: Hospital acquired PNA, Visual disturbance, CHF (congestive heart failure) - Patient ED Disposition Is Patient to be Admitted: Yes Discussed With DrRudy: Binh Blanca Counseled Patient/Family Regarding: Studies Performed, Diagnosis - Disposition Disposition Time: 22:07 Condition: FAIR - Pt Status Changed To: Hospital Disposition Of: Inpatient - Admit Certification Admit to Inpatient:: After my assessment, the patient will require hospitalization for at least two midnights. This is because of the severity of symptoms shown, intensity of services needed, and/or the medical risk in this patient being treated as an outpatient.
[2018-03-17 21:16] LABS: TROPONIN I 0.013 ng/mL (0.00-0.120)
[2018-03-17 21:29] LABS: BASO % 0.2 % (0.0-2.0); HEMOGLOBIN 11.2 g/dL (12.0-18.0); LYMPH # 0.5 K/uL (1.0-4.3); LYMPH % 3.3 % (20.0-40.0); MEAN CELL VOLUME 94.5 fl (80.0-94.0); MEAN CORPUSCULAR HGB CONC 31.8 g/dL (33.0-37.0); MEAN PLATELET VOLUME 9.1 fl (7.2-11.7); MONO # 1.3 K/uL (0.0-0.8); NEUT # 13.9 K/uL (1.8-7.0); NEUT % 88.5 % (50.0-75.0); NRBC % 0.1 % (0.0-0.0); RBC 3.72 Mil/uL (4.40-5.90); RED CELL DISTRIBUTION WIDTH 14.3 % (11.5-14.5); WHITE BLOOD COUNT 15.7 K/uL (4.8-10.8)
[2018-03-17] MEDS ORDERED: Ciprofloxacin 400mg/200ml D5W 400 MG/200 ML BAG IVPB STA (22:11)
[2018-03-17] MEDS ORDERED: Cefepime 1 GM in Sodium Chloride 0.9% 100 ML IVPB STA (22:12)
[2018-03-17] MEDS ORDERED: Ciprofloxacin 400mg/200ml D5W 400 MG/200 ML BAG IVPB ONE (23:09)
[2018-03-18] MEDS ORDERED: Cefepime 1 GM in Sodium Chloride 0.9% 100 ML IVPB SCH (01:00)
[2018-03-18] MEDS ORDERED: Ciprofloxacin 400mg/200ml D5W 400 MG/200 ML BAG IVPB SCH (01:00)
--- NOTE | 2018-03-18 06:49 | CT ---
Date of service: 03/17/2018 PROCEDURE: CT HEAD WITHOUT CONTRAST. HISTORY: visual changes COMPARISON: None available. TECHNIQUE: Axial computed tomography images were obtained through the head/brain without intravenous contrast. Radiation dose: Total exam DLP = 904.51 mGy-cm. This CT exam was performed using one or more of the following dose reduction techniques: Automated exposure control, adjustment of the mA and/or kV according to patient size, and/or use of iterative reconstruction technique. FINDINGS: HEMORRHAGE: No intracranial hemorrhage. BRAIN: No mass effect or edema. Atrophy and chronic white matter disease. Old right frontal infarct. VENTRICLES: Unremarkable. No hydrocephalus. CALVARIUM: Unremarkable. PARANASAL SINUSES: Unremarkable as visualized. No significant inflammatory changes. MASTOID AIR CELLS: Unremarkable as visualized. No inflammatory changes. OTHER FINDINGS: None. IMPRESSION: No acute hemorrhage.
[2018-03-18] MEDS ORDERED: Albuterol-Ipratrop 3 mg / 0.5 (3 ml) UD INH PRN (07:31)
--- NOTE | 2018-03-18 08:10 | RAD ---
Date of service: 03/17/2018 PROCEDURE: HISTORY: chest pain COMPARISON: 03/16/2018 TECHNIQUE: FINDINGS: No change from prior exam IMPRESSION: No change from prior exam
[2018-03-18 09:33] LABS: BASO % 0.1 % (0.0-2.0); EOS % 0.2 % (0.0-4.0); HEMOGLOBIN 11.1 g/dL (12.0-18.0); LYMPH # 1.1 K/uL (1.0-4.3); LYMPH % 7.5 % (20.0-40.0); MEAN CELL VOLUME 94.1 fl (80.0-94.0); MEAN CORPUSCULAR HGB CONC 31.9 g/dL (33.0-37.0); MONO # 1.1 K/uL (0.0-0.8); MONO % 7.3 % (0.0-10.0); NEUT # 12.5 K/uL (1.8-7.0); NEUT % 84.9 % (50.0-75.0); RBC 3.69 Mil/uL (4.40-5.90); RED CELL DISTRIBUTION WIDTH 14.2 % (11.5-14.5); WHITE BLOOD COUNT 14.7 K/uL (4.8-10.8)
[2018-03-18] MEDS: Cefepime 1 GM in Sodium Chloride 0.9% 100 ML IVPB SCH (09:51)
[2018-03-18 09:53] LABS: B-TYPE NATRIURETIC PEPTIDE 3140 pg/ml (0-900)
[2018-03-18] MEDS ORDERED: Sodium Chloride 3% for Inhalation 4 ML VIAL.NEB IH PRN (10:03)
[2018-03-18 10:09] LABS: ALB/GLOB RATIO 1.4 (1.0-2.1); ALBUMIN 3.7 g/dL (3.5-5.0); ALT/SGPT 56 U/L (21-72); AST/SGOT 27 U/L (17-59); BLOOD UREA NITROGEN 54 mg/dl (9-20); GFR NON-AFRICAN AMERICAN 54
[2018-03-18] MEDS: Multivitamin With Minerals Tab PO SCH (10:59)
[2018-03-18] MEDS: Fluticasone-Salmeterol 250-50mcg Diskus INH SCH ×2 (11:01→17:39)
--- NOTE | 2018-03-18 11:05 | HP ---
HISTORY OF PRESENT ILLNESS: Mr. Tasng is a 77-year-old male who was transferred to the emergency room from subacute care following an episode of blurry vision and cough which is productive of blood-tinged sputum. On the day of admission, he was apparently in physical therapy when symptoms started. He denies chest pains or shortness of breath, but oxygen saturation had been in the 80s, was brought to the emergency room where he was found to have pneumonia which is new compared to chest x-ray done just 24 hours prior to presentation. He also had a scan of the brain which was unremarkable. PAST MEDICAL HISTORY: He has a past medical history of congestive heart failure, coronary artery disease, COPD, hypertension, atrial fibrillation, status post pacemaker placement. FAMILY HISTORY: Remarkable for father that of complications due to laryngeal cancer and COPD. He also had a that had problems with exposure to cigarette smoke and had COPD. SOCIAL HISTORY: Socially, he used to smoke heavily, but quit several years ago. Does not drink alcohol. REVIEW OF SYSTEMS: Remarkable for shortness of breath, exercise intolerance, swelling of legs, noncompliance to medication and diet. PHYSICAL EXAMINATION: GENERAL: The patient is alert and oriented, appears much more comfortable this morning. VITAL SIGNS: Remarkable for blood pressure 150/79 with a pulse of 68, respiratory rate 18. He is afebrile. O2 sat 93% on room air. SKIN: Shows fair turgor. HEENT: Pupils, equal, reactive to light and accommodation. Mouth shows fair hygiene. NECK: JVP flat. LUNGS: Poor aeration bilaterally with scattered bilateral rales. HEART: Irregular rhythm. Has pacemaker in place. ABDOMEN: Soft, nontender. No organomegaly. EXTREMITIES: A 1+ bilateral pitting pedal edema. GENITAL: Unremarkable. RECTAL: Unremarkable except for rash in the groin area. CENTRAL NERVOUS SYSTEM: Grossly intact. LABORATORY DATA: Remarkable for WBC of 14.7, hemoglobin 11.1, platelet count of 177,000. Sodium 195, potassium 4.5, BUN 54, creatinine 1.3. ProBNP 3140. Glucose of 248. Influenza negative. PT 14.6, INR 1.3. Chest x-ray is remarkable for cardiomegaly, unchanged from prior chest x-ray. EKG, official report pending, but appears to be atrial fibrillation with controlled ventricular response. IMPRESSION: 1. Blurry vision. No abnormality noted on CT scan of the brain. Etiology to be determined. 2. Congestive heart failure, both diastolic and systolic dysfunction. 3. Pneumonia. On chest x-ray, probably hospital acquired. 4. Cardiac arrhythmias, history of coronary artery disease. 5. Diabetes mellitus, poorly controlled. 6. Hypertension, poorly controlled. PLAN: Intravenous antibiotics for hospital-acquired pneumonia and for hemoptysis. We would continue diuretic therapy. Cardiology reevaluation. Infectious diseases reevaluation. Beck cultures already sent. We will hold off on blood thinners for now since the patient has hemoptysis and restart in a few days. Transfer the patient to telemetry. Further therapy will depend on findings. May return to transitional care once clinically stable. Binh Blanca MD
[2018-03-18] MEDS: Promethazine DM 12.5 mg-30 mg/10 ml Syrup PO PRN ×2 (11:08→17:41)
[2018-03-18] MEDS ORDERED: Ciprofloxacin 400mg/200ml D5W 400 MG/200 ML BAG IVPB ONE (12:08)
[2018-03-18] MEDS: Ciprofloxacin 400mg/200ml D5W 400 MG/200 ML BAG IVPB SCH ×2 (12:12→21:14)
[2018-03-18] MEDS: Insulin Regular 100 units/ml SC SCH ×3 (12:21→22:37)
--- NOTE | 2018-03-18 22:55 | CARD ---
APPROVED REPORT Date of service: 03/18/2018 EKG Measurement Heart [id number] <Conclusion> Ventricular-paced rhythm Abnormal ECG
[2018-03-19] MEDS: Fluticasone-Salmeterol 250-50mcg Diskus INH SCH ×2 (09:57→17:40)
[2018-03-19] MEDS: Multivitamin With Minerals Tab PO SCH (09:58)
[2018-03-19] MEDS: Insulin Regular 100 units/ml SC SCH ×3 (10:00→17:37)
[2018-03-19] MEDS: HCTZ/Losartan 12.5/50 Tab PO SCH (10:00)
[2018-03-19] MEDS: Ciprofloxacin 400mg/200ml D5W 400 MG/200 ML BAG IVPB SCH ×2 (10:01→21:08)
[2018-03-19] MEDS: Cefepime 1 GM in Sodium Chloride 0.9% 100 ML IVPB SCH ×2 (10:04→21:09)
--- NOTE | 2018-03-19 10:49 | RAD ---
Date of service: 03/19/2018 HISTORY: pneumonia COMPARISON: 03/17/2018 TECHNIQUE: Chest PA and lateral FINDINGS: LUNGS: Persistent, worsening right lower lobe infiltrate. PLEURA: No significant pleural effusion identified. No pneumothorax apparent. CARDIOVASCULAR: No aortic atherosclerotic calcification present. Normal cardiac size. No pulmonary vascular congestion. OSSEOUS STRUCTURES: No significant abnormalities. VISUALIZED UPPER ABDOMEN: Normal. OTHER FINDINGS: None. IMPRESSION: Persistent, worsening right lower lobe infiltrate.
--- NOTE | 2018-03-19 11:19 | CP.PCM.PN ---
Subjective - Date & Time of Evaluation Date of Evaluation: 03/19/18 Time of Evaluation: 11:20 - Subjective Subjective: SOB IMPROVING COUGH LESS HEMOPTYSIS RESOLVED NO CHEST PAINS/PALPITATIONS Objective - Vital Signs/Intake and Output Vital Signs (last 24 hours): Temp Pulse Resp BP Pulse Ox 98.0 F 70 18 149/71 94 L 03/19/18 07:40 03/19/18 09:59 03/19/18 07:40 03/19/18 09:59 03/19/18 07:40 - Medications Medications: Current Medications Albuterol/Ipratropium (Duoneb 3 Mg/0.5 Mg (3 Ml) Ud) 3 ml INH RQ6 PRN PRN Reason: Shortness of Breath Aspirin (Aspirin Chewable) 81 mg PO DAILY [facility] Last Admin: 03/19/18 09:59 Dose: 81 mg Atorvastatin Calcium (Lipitor) 40 mg PO DAILY [facility] Last Admin: 03/19/18 09:59 Dose: 40 mg Carvedilol (Coreg) 6.25 mg PO BID [facility] Last Admin: 03/19/18 09:59 Dose: 6.25 mg Folic Acid (Folic Acid) 1 mg PO DAILY [facility] Last Admin: 03/19/18 10:00 Dose: 1 mg Furosemide (Lasix) 40 mg IV DAILY [facility] Last Admin: 03/19/18 09:59 Dose: 40 mg Glipizide (Glucotrol) 5 mg PO DAILY [facility] Last Admin: 03/19/18 09:58 Dose: 5 mg HCTZ/Losartan Potassium (Hyzaar 12.5 Mg-50 Mg) 1 tab PO DAILY [facility] Last Admin: 03/19/18 10:00 Dose: 1 tab Cefepime HCl 1 gm/ Sodium (Chloride) 100 mls @ 100 mls/hr IVPB DAILY [facility]; Protocol Last Admin: 03/19/18 10:04 Dose: 100 mls/hr Vancomycin HCl 500 mg/ Sodium (Chloride) 100 mls @ 100 mls/hr IVPB Q12 [facility]; Protocol Last Admin: 03/19/18 10:03 Dose: 100 mls/hr Ciprofloxacin (Cipro 400mg/200ml Dsw) 400 mg in 200 mls @ 200 mls/hr IVPB Q12 [facility]; Protocol Last Admin: 03/19/18 10:01 Dose: 200 mls/hr Insulin Human Regular (Humulin R) [address] [facility]; Protocol Last Admin: 03/19/18 10:00 Dose: Not Given Isosorbide Mononitrate (Imdur Er) 30 mg PO DAILY [facility] Last Admin: 03/19/18 09:58 Dose: 30 mg Multivitamins/Minerals (Therapeutic-M Tab) 1 tab PO DAILY [facility] Last Admin: 03/19/18 09:58 Dose: 1 tab Nystatin (Nystop Topical Powder) 1 applic TOP TID [facility] Last Admin: 03/19/18 09:58 Dose: 1 applic Promethazine HCl/Dextromethorphan (Phenergan Dm Syrup) 10 ml PO Q6 PRN PRN Reason: Cough Last Admin: 03/18/18 17:41 Dose: 10 ml Fluticasone/Salmeterol (Advair Diskus 250/50) 1 puff INH BID [facility] Last Admin: 03/19/18 09:57 Dose: 1 puff - Labs Labs: 03/18/18 09:12 03/18/18 09:12 PT 14.6 Seconds (9.8-13.1) H 03/17/18 20:35 INR 1.3 03/17/18 20:35 APTT 32.1 Seconds (25.6-37.1) 03/17/18 20:35 - Constitutional Appears: Chronically Ill - Head Exam Head Exam: ATRAUMATIC, NORMAL INSPECTION, NORMOCEPHALIC - Eye Exam Eye Exam: EOMI, Normal appearance, PERRL Pupil Exam: NORMAL ACCOMODATION, PERRL - ENT Exam ENT Exam: Mucous Membranes Moist, Normal Exam - Neck Exam Neck Exam: Full ROM, Normal Inspection. absent: Lymphadenopathy - Respiratory Exam Respiratory Exam: Decreased Breath Sounds, Prolonged Expiratory Phase, Rales, Wheezes, NORMAL BREATHING PATTERN - Cardiovascular Exam Cardiovascular Exam: REGULAR RHYTHM, +S1, +S2. absent: Murmur - GI/Abdominal Exam GI & Abdominal Exam: Soft, Normal Bowel Sounds. absent: Tenderness - Rectal Exam Rectal Exam: NORMAL INSPECTION - Extremities Exam Extremities Exam: Full ROM, Pedal Edema. absent: Joint Swelling - Back Exam Back Exam: NORMAL INSPECTION - Neurological Exam Neurological Exam: Alert, Awake, CN II-XII Intact, Normal Gait, Oriented x3 - Psychiatric Exam Psychiatric exam: Normal Affect, Normal Mood - Skin Skin Exam: Dry, Intact, Normal Color, Warm Assessment and Plan - Assessment and Plan (Free Text) Assessment: PNEUMONIA--HCAP CHF ASHD ARRYTHMIAS DM HTN Plan: CONTINUE PRESENT RX RESTART ANTICOAGULATION RX
--- NOTE | 2018-03-19 12:54 | CP.PCM.CON ---
History of Present Illness - History of Present Illness History of Present Illness: I was asked to evaluate patient by Dr Blanca. Patient seen 03/19/18 6223 Patient is a 77 year old male with CAD, s/p CABG, chronic afib, PPM COPD HTN who presents with dizziness and wekness. He has had multiple admissions recently. He denies current chest pain or syncope. Review of Systems - Constitutional Constitutional: Weakness - EENT Eyes: absent: As Per HPI, Blind Spots, Blurred Vision, Change in Vision, Decreased Night Vision, Diplopia, Discharge, Dry Eye, Exophthalmos, Floaters, Irritation, Itchy Eyes, Loss of Peripheral Vision, Pain, Photophobia, Requires Corrective Lenses, Sees Flashes, Spots in Vision, Tunnel Vision, Other Visual Disturbances, Loss of Vision, Other Ears: absent: As Per HPI, Decreased Hearing, Ear Discharge, Ear Pain, Tinnitus, Abnormal Hearing, Disequilibrium, Dizziness, Other Nose/Mouth/Throat: absent: As Per HPI, Epistaxis, Nasal Congestion, Nasal Discharge, Nasal Obstruction, Nasal Trauma, Nose Pain, Post Nasal Drip, Sinus Pain, Sinus Pressure, Bleeding Gums, Change in Voice, Dental Pain, Dry Mouth, Dysphagia, Halitosis, Hoarsness, Lip Swelling, Mouth Lesions, Mouth Pain, Odynophagia, Sore Throat, Throat Swelling, Tongue Swelling, Facial Pain, Neck Pain, Neck Mass, Other - Cardiovascular Cardiovascular: absent: As Per HPI, Acrocyanosis, Chest Pain, Chest Pain at Rest, Chest Pain with Activity, Claudication, Diaphoresis, Dyspnea, Dyspnea on Exertion, Edema, Irregular Heart Rhythm, Pain Radiating to Arm/Neck/Jaw, Leg Edema, Leg Ulcers, Lightheadedness, Orthopnea, Palpitations, Paroxysmal Nocturnal Dyspnea, Pedal Edema, Radiating Pain, Rapid Heart Rate, Slow Heart Rate, Syncope, Other - Respiratory Respiratory: absent: As Per HPI, Cough, Dyspnea, Hemoptysis, Dyspnea on Exertion, Wheezing, Snoring, Stridor, Pain on Inspiration, Chest Congestion, Excessive Mucous Production, Change in Mucous Color, Pain with Coughing, Other - Gastrointestinal Gastrointestinal: absent: As Per HPI, Abdominal Pain, Belching, Bloating, Change in Bowel Habits, Change in Stool Character, Coffee Ground Emesis, Constipation, Cramping, Diarrhea, Dyspepsia, Dysphagia, Early Satiety, Excessive Flatus, Fecal Incontinence, Heartburn, Hematemesis, Hematochezia, Loose Stools, Melena, Nausea, Odynophagia, Temesmus, Vomiting, Other - Genitourinary Genitourinary: absent: As Per HPI, Change in Urinary Stream, Difficulty Urinating, Dysuria, Flank Pain, Hematuria, Pyuria, Nocturia, Urinary In continence, Urinary Frequency, Urinary Hesitance, Urinary Urgency, Voiding Freq/Small Amts, Freq UTI, Hx Renal/Bladder Calculi, Hx /Renal Surgery, Bladder Distension, Other - Musculoskeletal Musculoskeletal: absent: As Per HPI, Abnormal Gait, Arthralgias, Atrophy, Back Pain, Deformity, Joint Swelling, Limited Range of Motion, Loss of Height, Muscle Cramps, Muscle Weakness, Myalgias, Neck Pain, Numbness, Radiating Pain into Limb, Stiffness, Tingling, Other - Integumentary Integumentary: absent: As Per HPI, Acne, Alopecia, Bleeding Lesions, Change in Hair, Change in Nails, Change in Pigmentation, Changing Lesions, Dry Skin, Erythema, Furuncle, Hirsutism, Lesions, New Lesions, Non-Healing Lesions, Photosensitivity, Pruritus, Rash, Skin Pain, Skin Ulcer, Sores, Striae, Swelling, Unusual Bruising, Wounds, Jaundice, Other - Neurological Neurological: absent: As Per HPI, Abnormal Gait, Abnormal Hearing, Abnormal Movements, Abnormal Speech, Behavioral Changes, Burning Sensations, Confusion, Convulsions, Disequilibrium, Dizziness, Numbness, Focal Weakness, Frequent Falls, Headaches, Lack of Coordination, Loss of Vision, Memory Loss, Paresthesias, Radicular Pain, Restless Legs, Sensory Deficit, Syncope, Tingling, Tremor, Vertigo, Weakness, Other Visual Disturbances, Other - Psychiatric Psychiatric: absent: As Per HPI, Abnormal Sleep Pattern, Anhedonia, Anxiety, Auditory Hallucinations, Behavioral Changes, Change in Appetite, Change in Libido, Confusion, Depression, Difficulty Concentrating, Hallucinations, Homicidal Ideation, Hopelessness, Irritability, Memory Loss, Mood Swings, Panic Attacks, Paranoia, Suicidal Ideation, Visual Hallucinations, Tactile Hallucinations, Other - Endocrine Endocrine: absent: As Per HPI, Change in Body Appearance, Change in Libido, Cold Intolorance, Deepening of Voice, Excessive Sweating, Fatigue, Flushing, Heat Intolorance, Increase in Ring/Shoe/Hat Size, Palpitations, Polydipsia, Polyphagia, Polyuria, Other - Hematologic/Lymphatic Hematologic: absent: As Per HPI, Easy Bleeding, Easy Bruising, Lymphadenopathy, Other Past Patient History - Infectious Disease Hx of Infectious Diseases: None - Tetanus Immunizations Tetanus Immunization: Unknown - Past Medical History & Family History Past Medical History?: Yes - Past Social History Smoking Status: Former Smoker - CARDIAC Hx Atrial Fibrillation: Yes Hx Congestive Heart Failure: Yes Hx Hypercholesterolemia: Yes Hx Hypertension: Yes Hx Pacemaker: Yes (11/2017) Hx Peripheral Edema: Yes - PULMONARY Hx Bronchitis: Yes Hx Chronic Obstructive Pulmonary Disease (COPD): Yes Hx Emphysema: Yes Hx Pneumonia: Yes - NEUROLOGICAL Hx Dementia: Yes - HEENT Hx HEENT Problems: No - RENAL Hx Chronic Kidney Disease: Yes (CKD) - ENDOCRINE/METABOLIC Hx Endocrine Disorders: No - HEMATOLOGICAL/ONCOLOGICAL Hx Anemia: Yes Hx Human Immunodeficiency Virus (HIV): No - INTEGUMENTARY Hx Dermatological Problems: No - MUSCULOSKELETAL/RHEUMATOLOGICAL Hx Arthritis: Yes Hx Falls: No - GASTROINTESTINAL Hx Gastritis: Yes - GENITOURINARY/GYNECOLOGICAL Hx Genitourinary Disorders: No - PSYCHIATRIC Hx Psychophysiologic Disorder: No Hx Substance Use: No - SURGICAL HISTORY Hx Coronary Artery Bypass Graft: Yes (in 2005) - ANESTHESIA Hx Anesthesia: Yes Hx Anesthesia Reactions: No Hx Malignant Hyperthermia: No Meds Allergies/Adverse Reactions: Allergies Allergy/AdvReac Type Severity Reaction Status Date / Time No Known Allergies Allergy Verified 03/17/18 19:42 - Medications Medications: Current Medications Albuterol/Ipratropium (Duoneb 3 Mg/0.5 Mg (3 Ml) Ud) 3 ml INH RQ6 PRN PRN Reason: Shortness of Breath Apixaban (Eliquis) 2.5 mg PO BID [facility]; Protocol Aspirin (Aspirin Chewable) 81 mg PO DAILY [facility] Last Admin: 03/19/18 09:59 Dose: 81 mg Atorvastatin Calcium (Lipitor) 40 mg PO DAILY [facility] Last Admin: 03/19/18 09:59 Dose: 40 mg Carvedilol (Coreg) 6.25 mg PO BID [facility] Last Admin: 03/19/18 09:59 Dose: 6.25 mg Folic Acid (Folic Acid) 1 mg PO DAILY [facility] Last Admin: 03/19/18 10:00 Dose: 1 mg Furosemide (Lasix) 40 mg IV DAILY [facility] Last Admin: 03/19/18 09:59 Dose: 40 mg Glipizide (Glucotrol) 5 mg PO DAILY [facility] Last Admin: 03/19/18 09:58 Dose: 5 mg HCTZ/Losartan Potassium (Hyzaar 12.5 Mg-50 Mg) 1 tab PO DAILY [facility] Last Admin: 03/19/18 10:00 Dose: 1 tab Cefepime HCl 1 gm/ Sodium (Chloride) 100 mls @ 100 mls/hr IVPB DAILY [facility]; Protocol Last Admin: 03/19/18 10:04 Dose: 100 mls/hr Vancomycin HCl 500 mg/ Sodium (Chloride) 100 mls @ 100 mls/hr IVPB Q12 [facility]; Protocol Last Admin: 03/19/18 10:03 Dose: 100 mls/hr Ciprofloxacin (Cipro 400mg/200ml Dsw) 400 mg in 200 mls @ 200 mls/hr IVPB Q12 [facility]; Protocol Last Admin: 03/19/18 10:01 Dose: 200 mls/hr Insulin Human Regular (Humulin R) 0 units SC ACHS [facility]; Protocol Last Admin: 03/19/18 12:34 Dose: 3 units Isosorbide Mononitrate (Imdur Er) 30 mg PO DAILY [facility] Last Admin: 03/19/18 09:58 Dose: 30 mg Multivitamins/Minerals (Therapeutic-M Tab) 1 tab PO DAILY [facility] Last Admin: 03/19/18 09:58 Dose: 1 tab Nystatin (Nystop Topical Powder) 1 applic TOP TID [facility] Last Admin: 03/19/18 09:58 Dose: 1 applic Promethazine HCl/Dextromethorphan (Phenergan Dm Syrup) 10 ml PO Q6 PRN PRN Reason: Cough Last Admin: 03/18/18 17:41 Dose: 10 ml Fluticasone/Salmeterol (Advair Diskus 250/50) 1 puff INH BID [facility] Last Admin: 03/19/18 09:57 Dose: 1 puff Physical Exam - Constitutional Appears: Non-toxic - Head Exam Head Exam: NORMAL INSPECTION - Eye Exam Eye Exam: Normal appearance - ENT Exam ENT Exam: Mucous Membranes Moist - Neck Exam Neck exam: Positive for: Normal Inspection - Respiratory Exam Respiratory Exam: NORMAL BREATHING PATTERN - Cardiovascular Exam Cardiovascular Exam: REGULAR RHYTHM - GI/Abdominal Exam GI & Abdominal Exam: Normal Bowel Sounds - Rectal Exam Rectal Exam: absent: Deferred - Extremities Exam Extremities exam: Positive for: normal inspection. Negative for: pedal edema - Back Exam Back exam: NORMAL INSPECTION - Neurological Exam Neurological exam: Alert, Oriented x3 - Psychiatric Exam Psychiatric exam: Normal Affect - Skin Skin Exam: Normal Color Results - Vital Signs Recent Vital Signs: Last Vital Signs Temp 98.1 F 03/19/18 12:00 Pulse 67 03/19/18 12:00 Resp 18 03/19/18 12:00 BP 137/72 03/19/18 12:00 Pulse Ox 93 L 03/19/18 12:00 - Labs Result Diagrams: 03/18/18 09:12 03/18/18 09:12 Labs: Laboratory Results - last 24 hr 03/18/18 03/18/18 03/19/18 16:39 22:26 05:03 POC Glucose (mg/dL) 66 129 H 147 H 03/19/18 10:50 POC Glucose (mg/dL) 263 H - EKG Data EKG Interpreted by: Myself Assessment & Plan (1) Atrial fibrillation Assessment and Plan: rate controlled. anticoagulation with Eliquis has been previously used Status: Chronic Priority: High (2) Pacemaker Assessment and Plan: normal function Status: Acute (3) CAD (coronary artery disease) Assessment and Plan: no angina Status: Chronic
--- NOTE | 2018-03-19 13:18 | CP.PCM.CON ---
History of Present Illness - History of Present Illness History of Present Illness: 77 year old male with a history of DM CHF, afib COPD and hypertension presents to the ED for evaluation of blurred vision and a productive cough which started while on rehab Admitted with dx of HCAP and placed on IV antibiotics ID consulted for this - Medical History PMH: Anemia, Arthritis, Atrial Fibrillation, Bronchitis, CAD, CHF, COPD, CVA (mild), Dementia, Diabetes (type II), Emphysema, Gastritis, HTN, Hypercholesterolemia, Peripheral Edema, Pneumonia, Chronic Kidney Disease (CKD) Denies: HIV Review of Systems - Constitutional Constitutional: Weakness - EENT Eyes: absent: As Per HPI, Blind Spots, Blurred Vision, Change in Vision, Decreased Night Vision, Diplopia, Discharge, Dry Eye, Exophthalmos, Floaters, Irritation, Itchy Eyes, Loss of Peripheral Vision, Pain, Photophobia, Requires Corrective Lenses, Sees Flashes, Spots in Vision, Tunnel Vision, Other Visual D isturbances, Loss of Vision, Other Ears: absent: As Per HPI, Decreased Hearing, Ear Discharge, Ear Pain, Tinnitus, Abnormal Hearing, Disequilibrium, Dizziness, Other Nose/Mouth/Throat: absent: As Per HPI, Epistaxis, Nasal Congestion, Nasal Discharge, Nasal Obstruction, Nasal Trauma, Nose Pain, Post Nasal Drip, Sinus Pain, Sinus Pressure, Bleeding Gums, Change in Voice, Dental Pain, Dry Mouth, Dysphagia, Halitosis, Hoarsness, Lip Swelling, Mouth Lesions, Mouth Pain, Odynophagia, Sore Throat, Throat Swelling, Tongue Swelling, Facial Pain, Neck Pa in, Neck Mass, Other - Cardiovascular Cardiovascular: absent: As Per HPI, Acrocyanosis, Chest Pain, Chest Pain at Rest, Chest Pain with Activity, Claudication, Diaphoresis, Dyspnea, Dyspnea on Exertion, Edema, Irregular Heart Rhythm, Pain Radiating to Arm/Neck/Jaw, Leg Edema, Leg Ulcers, Lightheadedness, Orthopnea, Palpitations, Paroxysmal Nocturnal Dyspnea, Pedal Edema, Radiating Pain, Rapid Heart Rate, Slow Heart Rate, Syncope, Other - Respiratory Respiratory: absent: As Per HPI, Cough, Dyspnea, Hemoptysis, Dyspnea on Exertion, Wheezing, Snoring, Stridor, Pain on Inspiration, Chest Congestion, Excessive Mucous Production, Change in Mucous Color, Pain with Coughing, Other - Gastrointestinal Gastrointestinal: absent: As Per HPI, Abdominal Pain, Belching, Bloating, Change in Bowel Habits, Change in Stool Character, Coffee Ground Emesis, Constipation, Cramping, Diarrhea, Dyspepsia, Dysphagia, Early Satiety, Excessive Flatus, Fecal Incontinence, Heartburn, Hematemesis, Hematochezia, Loose Stools, Melena, Nausea, Odynophagia, Temesmus, Vomiting, Other - Genitourinary Genitourinary: absent: As Per HPI, Change in Urinary Stream, Difficulty Urinating, Dysuria, Flank Pain, Hematuria, Pyuria, Nocturia, Urinary Incontinence, Urinary Frequency, Urinary Hesitance, Urinary Urgency, Voiding Freq/Small Amts, Freq UTI, Hx Renal/Bladder Calculi, Hx /Renal Surgery, Bladder Distension, Other - Musculoskeletal Musculoskeletal: absent: As Per HPI, Abnormal Gait, Arthralgias, Atrophy, Back Pain, Deformity, Joint Swelling, Limited Range of Motion, Loss of Height, Muscle Cramps, Muscle Weakness, Myalgias, Neck Pain, Numbness, Radiating Pain into Limb, Stiffness, Tingling, Other - Integumentary Integumentary: absent: As Per HPI, Acne, Alopecia, Bleeding Lesions, Change in Hair, Change in Nails, Change in Pigmentation, Changing Lesions, Dry Skin, Erythema, Furuncle, Hirsutism, Lesions, New Lesions, Non-Healing Lesions, Photosensitivity, Pruritus, Rash, Skin Pain, Skin Ulcer, Sores, Striae, Swelling, Unusual Bruising, Wounds, Jaundice, Other - Neurological Neurological: absent: As Per HPI, Abnormal Gait, Abnormal Hearing, Abnormal Movements, Abnormal Speech, Behavioral Changes, Burning Sensations, Confusion, Convulsions, Disequilibrium, Dizziness, Numbness, Focal Weakness, Frequent Falls, Headaches, Lack of Coordination, Loss of Vision, Memory Loss, Paresthesias, Radicular Pain, Restless Legs, Sensory Deficit, Syncope, Tingling, Tremor, Vertigo, Weakness, Other Visual Disturbances, Other - Psychiatric Psychiatric: absent: As Per HPI, Abnormal Sleep Pattern, Anhedonia, Anxiety, Auditory Hallucinations, Behavioral Changes, Change in Appetite, Change in Libido, Confusion, Depression, Difficulty Concentrating, Hallucinations, Homicidal Ideation, Hopelessness, Irritability, Memory Loss, Mood Swings, Panic Attacks, Paranoia, Suicidal Ideation, Visual Hallucinations, Tactile Hallucinations, Other - Endocrine Endocrine: absent: As Per HPI, Change in Body Appearance, Change in Libido, Cold Intolorance, Deepening of Voice, Excessive Sweating, Fatigue, Flushing, Heat Intolorance, Increase in Ring/Shoe/Hat Size, Palpitations, Polydipsia, Polyphagia, Polyuria, Other - Hematologic/Lymphatic Hematologic: absent: As Per HPI, Easy Bleeding, Easy Bruising, Lymphadenopathy, Other Past Patient History - Infectious Disease Hx of Infectious Diseases: None - Tetanus Immunizations Tetanus Immunization: Unknown - Past Medical History & Family History Past Medical History?: Yes - Past Social History Smoking Status: Former Smoker - CARDIAC Hx Atrial Fibrillation: Yes Hx Congestive Heart Failure: Yes Hx Hypercholesterolemia: Yes Hx Hypertension: Yes Hx Pacemaker: Yes (11/2017) Hx Peripheral Edema: Yes - PULMONARY Hx Bronchitis: Yes Hx Chronic Obstructive Pulmonary Disease (COPD): Yes Hx Emphysema: Yes Hx Pneumonia: Yes - NEUROLOGICAL Hx Dementia: Yes - HEENT Hx HEENT Problems: No - RENAL Hx Chronic Kidney Disease: Yes (CKD) - ENDOCRINE/METABOLIC Hx Endocrine Disorders: No - HEMATOLOGICAL/ONCOLOGICAL Hx Anemia: Yes Hx Human Immunodeficiency Virus (HIV): No - INTEGUMENTARY Hx Dermatological Problems: No - MUSCULOSKELETAL/RHEUMATOLOGICAL Hx Arthritis: Yes Hx Falls: No - GASTROINTESTINAL Hx Gastritis: Yes - GENITOURINARY/GYNECOLOGICAL Hx Genitourinary Disorders: No - PSYCHIATRIC Hx Psychophysiologic Disorder: No Hx Substance Use: No - SURGICAL HISTORY Hx Coronary Artery Bypass Graft: Yes (in 2005) - ANESTHESIA Hx Anesthesia: Yes Hx Anesthesia Reactions: No Hx Malignant Hyperthermia: No Meds Allergies/Adverse Reactions: Allergies Allergy/AdvReac Type Severity Reaction Status Date / Time No Known Allergies Allergy Verified 03/17/18 19:42 - Medications Medications: Current Medications Albuterol/Ipratropium (Duoneb 3 Mg/0.5 Mg (3 Ml) Ud) 3 ml INH RQ6 PRN PRN Reason: Shortness of Breath Apixaban (Eliquis) 2.5 mg PO BID [facility]; Protocol Aspirin (Aspirin Chewable) 81 mg PO DAILY [facility] Last Admin: 03/19/18 09:59 Dose: 81 mg Atorvastatin Calcium (Lipitor) 40 mg PO DAILY [facility] Last Admin: 03/19/18 09:59 Dose: 40 mg Carvedilol (Coreg) 6.25 mg PO BID [facility] Last Admin: 03/19/18 09:59 Dose: 6.25 mg Folic Acid (Folic Acid) 1 mg PO DAILY [facility] Last Admin: 03/19/18 10:00 Dose: 1 mg Furosemide (Lasix) 40 mg IV DAILY [facility] Last Admin: 03/19/18 09:59 Dose: 40 mg Glipizide (Glucotrol) 5 mg PO DAILY [facility] Last Admin: 03/19/18 09:58 Dose: 5 mg HCTZ/Losartan Potassium (Hyzaar 12.5 Mg-50 Mg) 1 tab PO DAILY [facility] Last Admin: 03/19/18 10:00 Dose: 1 tab Cefepime HCl 1 gm/ Sodium (Chloride) 100 mls @ 100 mls/hr IVPB DAILY [facility]; Protocol Last Admin: 03/19/18 10:04 Dose: 100 mls/hr Vancomycin HCl 500 mg/ Sodium (Chloride) 100 mls @ 100 mls/hr IVPB Q12 [facility]; Protocol Last Admin: 03/19/18 10:03 Dose: 100 mls/hr Ciprofloxacin (Cipro 400mg/200ml Dsw) 400 mg in 200 mls @ 200 mls/hr IVPB Q12 [facility]; Protocol Last Admin: 03/19/18 10:01 Dose: 200 mls/hr Insulin Human Regular (Humulin R) 0 units SC ACHS [facility]; Protocol Last Admin: 03/19/18 12:34 Dose: 3 units Isosorbide Mononitrate (Imdur Er) 30 mg PO DAILY [facility] Last Admin: 03/19/18 09:58 Dose: 30 mg Multivitamins/Minerals (Therapeutic-M Tab) 1 tab PO DAILY [facility] Last Admin: 03/19/18 09:58 Dose: 1 tab Nystatin (Nystop Topical Powder) 1 applic TOP TID [facility] Last Admin: 03/19/18 09:58 Dose: 1 applic Promethazine HCl/Dextromethorphan (Phenergan Dm Syrup) 10 ml PO Q6 PRN PRN Reason: Cough Last Admin: 03/18/18 17:41 Dose: 10 ml Fluticasone/Salmeterol (Advair Diskus 250/50) 1 puff INH BID [facility] Last Admin: 03/19/18 09:57 Dose: 1 puff Physical Exam - Constitutional Appears: Non-toxic, No Acute Distress, Chronically Ill - Head Exam Head Exam: ATRAUMATIC, NORMAL INSPECTION, NORMOCEPHALIC - Eye Exam Eye Exam: EOMI, PERRL. absent: Scleral icterus - ENT Exam ENT Exam: Mucous Membranes Dry, Normal External Ear Exam, Normal Oropharynx - Neck Exam Neck exam: Negative for: Lymphadenopathy - Respiratory Exam Respiratory Exam: Decreased Breath Sounds, Prolonged Expiratory Phase, Rhonchi - Cardiovascular Exam Cardiovascular Exam: REGULAR RHYTHM, +S1, +S2 - GI/Abdominal Exam GI & Abdominal Exam: Diminished Bowel Sounds, Soft. absent: Tenderness - Rectal Exam Rectal Exam: Deferred - Exam Exam: NORMAL INSPECTION - Extremities Exam Extremities exam: Negative for: pedal edema - Back Exam Back exam: absent: CVA tenderness (L), CVA tenderness (R) - Neurological Exam Neurological exam: Alert, CN II-XII Intact, Oriented x3, Reflexes Normal - Psychiatric Exam Psychiatric exam: Normal Mood - Skin Skin Exam: Dry, Erythema Additional comments: + edema decreased pulses Results - Vital Signs Recent Vital Signs: Last Vital Signs Temp 98.1 F 03/19/18 12:00 Pulse 67 03/19/18 12:00 Resp 18 03/19/18 12:00 BP 137/72 03/19/18 12:00 Pulse Ox 93 L 03/19/18 12:00 - Labs Result Diagrams: 03/18/18 09:12 03/18/18 09:12 Labs: Laboratory Results - last 24 hr 03/18/18 03/18/18 03/19/18 16:39 22:26 05:03 POC Glucose (mg/dL) 66 129 H 147 H 03/19/18 10:50 POC Glucose (mg/dL) 263 H Assessment & Plan (1) CHF (congestive heart failure) Status: Acute (2) Hospital acquired PNA Status: Acute (3) Visual disturbance Status: Acute - Assessment and Plan (Free Text) Assessment: Patient is a 77 year old male with CAD, s/p CABG, chronic afib, PPM COPD HTN who presents with dizziness and weakness. He has worsening RLL infiltrates and is on IV antibiotics cultures pending cont rx for HCAP will follow with you
[2018-03-19 16:02] VITALS: BMI 39.2
[2018-03-19] MEDS: Promethazine DM 12.5 mg-30 mg/10 ml Syrup PO PRN (21:42)
[2018-03-20] MEDS: Insulin Regular 100 units/ml SC SCH ×5 (00:23→22:29)
--- NOTE | 2018-03-20 08:43 | CP.PCM.PN ---
Subjective - Date & Time of Evaluation Date of Evaluation: 03/20/18 Time of Evaluation: 08:44 - Subjective Subjective: CLINICALLY IMPROVED BLURRY VISION RESOLVED VSS COUGH LESS NO HEMOPTYSIS NO CHEST PAINS PEDAL EDEMA LESS Objective - Vital Signs/Intake and Output Vital Signs (last 24 hours): Temp Pulse Resp BP Pulse Ox 98.2 F 67 18 107/50 L 94 L 03/20/18 07:59 03/20/18 07:59 03/20/18 07:59 03/20/18 07:59 03/20/18 07:59 - Medications Medications: Current Medications Albuterol/Ipratropium (Duoneb 3 Mg/0.5 Mg (3 Ml) Ud) 3 ml INH RQ6 PRN PRN Reason: Shortness of Breath Apixaban (Eliquis) 2.5 mg PO BID [facility]; Protocol Last Admin: 03/19/18 17:42 Dose: 2.5 mg Aspirin (Aspirin Chewable) 81 mg PO DAILY [facility] Last Admin: 03/19/18 09:59 Dose: 81 mg Atorvastatin Calcium (Lipitor) 40 mg PO DAILY [facility] Last Admin: 03/19/18 09:59 Dose: 40 mg Carvedilol (Coreg) 6.25 mg PO BID [facility] Last Admin: 03/19/18 17:37 Dose: 6.25 mg Folic Acid (Folic Acid) 1 mg PO DAILY [facility] Last Admin: 03/19/18 10:00 Dose: 1 mg Furosemide (Lasix) 40 mg IV DAILY [facility] Last Admin: 03/19/18 09:59 Dose: 40 mg Glipizide (Glucotrol) 5 mg PO DAILY [facility] Last Admin: 03/19/18 09:58 Dose: 5 mg HCTZ/Losartan Potassium (Hyzaar 12.5 Mg-50 Mg) 1 tab PO DAILY [facility] Last Admin: 03/19/18 10:00 Dose: 1 tab Vancomycin HCl 500 mg/ Sodium (Chloride) 100 mls @ 100 mls/hr IVPB Q12 [facility]; Protocol Last Admin: 03/19/18 21:08 Dose: 100 mls/hr Ciprofloxacin (Cipro 400mg/200ml Dsw) 400 mg in 200 mls @ 200 mls/hr IVPB Q12 [facility]; Protocol Last Admin: 03/19/18 21:08 Dose: 200 mls/hr Cefepime HCl 1 gm/ Sodium (Chloride) 100 mls @ 100 mls/hr IVPB Q12 [facility]; Protocol Last Admin: 03/19/18 21:09 Dose: 100 mls/hr Insulin Human Regular (Humulin R) 0 units SC ACHS [facility]; Protocol Last Admin: 03/20/18 00:23 Dose: Not Given Isosorbide Mononitrate (Imdur Er) 30 mg PO DAILY [facility] Last Admin: 03/19/18 09:58 Dose: 30 mg Multivitamins/Minerals (Therapeutic-M Tab) 1 tab PO DAILY [facility] Last Admin: 03/19/18 09:58 Dose: 1 tab Nystatin (Nystop Topical Powder) 1 applic TOP TID [facility] Last Admin: 03/19/18 17:39 Dose: Not Given Promethazine HCl/Dextromethorphan (Phenergan Dm Syrup) 10 ml PO Q6 PRN PRN Reason: Cough Last Admin: 03/19/18 21:42 Dose: 10 ml Fluticasone/Salmeterol (Advair Diskus 250/50) 1 puff INH BID [facility] Last Admin: 03/19/18 17:40 Dose: 1 puff - Labs Labs: 03/18/18 09:12 03/18/18 09:12 PT 14.6 Seconds (9.8-13.1) H 03/17/18 20:35 INR 1.3 03/17/18 20:35 APTT 32.1 Seconds (25.6-37.1) 03/17/18 20:35 - Constitutional Appears: No Acute Distress - Head Exam Head Exam: ATRAUMATIC, NORMAL INSPECTION, NORMOCEPHALIC - Eye Exam Eye Exam: EOMI, Normal appearance, PERRL Pupil Exam: NORMAL ACCOMODATION, PERRL - ENT Exam ENT Exam: Mucous Membranes Moist, Normal Exam - Neck Exam Neck Exam: Full ROM, Normal Inspection. absent: Lymphadenopathy - Respiratory Exam Respiratory Exam: Decreased Breath Sounds, Prolonged Expiratory Phase, Rales, Wheezes, NORMAL BREATHING PATTERN - Cardiovascular Exam Cardiovascular Exam: REGULAR RHYTHM, +S1, +S2. absent: Murmur - GI/Abdominal Exam GI & Abdominal Exam: Soft, Normal Bowel Sounds. absent: Tenderness - Rectal Exam Rectal Exam: NORMAL INSPECTION - Extremities Exam Extremities Exam: Full ROM, Pedal Edema. 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
[2018-03-20] MEDS: Fluticasone-Salmeterol 250-50mcg Diskus INH SCH ×2 (09:29→16:55)
[2018-03-20] MEDS: Multivitamin With Minerals Tab PO SCH (09:31)
[2018-03-20] MEDS: Cefepime 1 GM in Sodium Chloride 0.9% 100 ML IVPB SCH ×2 (09:32→20:32)
[2018-03-20] MEDS: Ciprofloxacin 400mg/200ml D5W 400 MG/200 ML BAG IVPB SCH ×2 (09:41→20:33)
--- NOTE | 2018-03-20 11:45 | CP.PCM.PN ---
Subjective - Date & Time of Evaluation Date of Evaluation: 03/20/18 Time of Evaluation: 08:00 - Subjective Subjective: Admitted with dx of HCAP and placed on IV antibiotics ID consulted for this CULTURES THUS FAR NEGATIVE LESS SOB TODAY AWAKE ALERT SOME REDNESS OF LEGS + EDEMA DR GONZALEZ ON BOARD Objective - Vital Signs/Intake and Output Vital Signs (last 24 hours): Temp Pulse Resp BP Pulse Ox 98.2 F 67 18 107/50 L 94 L 03/20/18 09:00 03/20/18 09:30 03/20/18 09:00 03/20/18 09:30 03/20/18 09:00 - Medications Medications: Current Medications Albuterol/Ipratropium (Duoneb 3 Mg/0.5 Mg (3 Ml) Ud) 3 ml INH RQ6 PRN PRN Reason: Shortness of Breath Apixaban (Eliquis) 2.5 mg PO BID [facility]; Protocol Last Admin: 03/20/18 09:29 Dose: 2.5 mg Aspirin (Aspirin Chewable) 81 mg PO DAILY [facility] Last Admin: 03/20/18 09:31 Dose: 81 mg Atorvastatin Calcium (Lipitor) 40 mg PO DAILY [facility] Last Admin: 03/20/18 09:31 Dose: 40 mg Carvedilol (Coreg) 6.25 mg PO BID [facility] Last Admin: 03/20/18 09:30 Dose: 6.25 mg Folic Acid (Folic Acid) 1 mg PO DAILY [facility] Last Admin: 03/20/18 09:29 Dose: 1 mg Furosemide (Lasix) 40 mg IV DAILY [facility] Last Admin: 03/19/18 09:59 Dose: 40 mg Glipizide (Glucotrol) 5 mg PO DAILY [facility] Last Admin: 03/20/18 09:31 Dose: 5 mg HCTZ/Losartan Potassium (Hyzaar 12.5 Mg-50 Mg) 1 tab PO DAILY [facility] Last Admin: 03/19/18 10:00 Dose: 1 tab Vancomycin HCl 500 mg/ Sodium (Chloride) 100 mls @ 100 mls/hr IVPB Q12 [facility]; Protocol Last Admin: 03/20/18 09:39 Dose: 100 mls/hr Ciprofloxacin (Cipro 400mg/200ml Dsw) 400 mg in 200 mls @ 200 mls/hr IVPB Q12 [facility]; Protocol Last Admin: 03/20/18 09:41 Dose: 200 mls/hr Cefepime HCl 1 gm/ Sodium (Chloride) 100 mls @ 100 mls/hr IVPB Q12 [facility]; Protocol Last Admin: 03/20/18 09:32 Dose: 100 mls/hr Insulin Human Regular (Humulin R) 0 units SC ACHS [facility]; Protocol Last Admin: 03/20/18 09:41 Dose: Not Given Isosorbide Mononitrate (Imdur Er) 30 mg PO DAILY [facility] Last Admin: 03/19/18 09:58 Dose: 30 mg Multivitamins/Minerals (Therapeutic-M Tab) 1 tab PO DAILY [facility] Last Admin: 03/20/18 09:31 Dose: 1 tab Nystatin (Nystop Topical Powder) 1 applic TOP TID [facility] Last Admin: 03/20/18 09:33 Dose: Not Given Promethazine HCl/Dextromethorphan (Phenergan Dm Syrup) 10 ml PO Q6 PRN PRN Reason: Cough Last Admin: 03/19/18 21:42 Dose: 10 ml Fluticasone/Salmeterol (Advair Diskus 250/50) 1 puff INH BID [facility] Last Admin: 03/20/18 09:29 Dose: 1 puff - Labs Labs: 03/18/18 09:12 03/18/18 09:12 PT 14.6 Seconds (9.8-13.1) H 03/17/18 20:35 INR 1.3 03/17/18 20:35 APTT 32.1 Seconds (25.6-37.1) 03/17/18 20:35 - Constitutional Appears: Non-toxic, Chronically Ill - Head Exam Head Exam: NORMOCEPHALIC - Eye Exam Eye Exam: absent: Scleral icterus - ENT Exam ENT Exam: Mucous Membranes Dry - Neck Exam Neck Exam: absent: Lymphadenopathy - Respiratory Exam Respiratory Exam: Decreased Breath Sounds - Cardiovascular Exam Cardiovascular Exam: REGULAR RHYTHM - GI/Abdominal Exam GI & Abdominal Exam: Distended - Rectal Exam Rectal Exam: Deferred - Exam Exam: NORMAL INSPECTION - Extremities Exam Extremities Exam: absent: Pedal Edema - Back Exam Back Exam: absent: CVA tenderness (L), CVA tenderness (R) - Neurological Exam Neurological Exam: Alert, Awake, CN II-XII Intact - Psychiatric Exam Psychiatric exam: Depressed - Skin Skin Exam: Dry Assessment and Plan (1) CHF (congestive heart failure) Status: Acute (2) Hospital acquired PNA Status: Acute (3) Visual disturbance Status: Acute - Assessment and Plan (Free Text) Assessment: CONT EMPIRIC IV ANTIBIOTICS AWAIT CULTURES/SEROLOGIES WILL CHECK PROCALCITONIN LEVEL
[2018-03-20] MEDS: HCTZ/Losartan 12.5/50 Tab PO SCH (12:38)
[2018-03-20] MEDS: Promethazine DM 12.5 mg-30 mg/10 ml Syrup PO PRN (17:06)
[2018-03-21 04:40] VITALS: RESP 18
[2018-03-21 05:55] LABS: BASO % 0.1 % (0.0-2.0); EOS # 0.3 K/uL (0.0-0.7); EOS % 3.3 % (0.0-4.0); HEMOGLOBIN 10.2 g/dL (12.0-18.0); LYMPH # 1.1 K/uL (1.0-4.3); LYMPH % 11.2 % (20.0-40.0); MEAN CELL VOLUME 91.4 fl (80.0-94.0); MEAN CORPUSCULAR HEMOGLOBIN 30.7 pg (27.0-31.0); MEAN CORPUSCULAR HGB CONC 33.6 g/dL (33.0-37.0); MEAN PLATELET VOLUME 9.2 fl (7.2-11.7); MONO # 1.4 K/uL (0.0-0.8); MONO % 14.7 % (0.0-10.0); NEUT # 6.9 K/uL (1.8-7.0); NEUT % 70.7 % (50.0-75.0); RBC 3.33 Mil/uL (4.40-5.90); RED CELL DISTRIBUTION WIDTH 14.4 % (11.5-14.5); WHITE BLOOD COUNT 9.7 K/uL (4.8-10.8)
[2018-03-21 06:28] LABS: CALCIUM 7.7 mg/dL (8.4-10.2)
[2018-03-21] MEDS: Insulin Regular 100 units/ml SC SCH ×2 (06:44→12:22)
[2018-03-21 07:50] VITALS: PULSE 72
--- NOTE | 2018-03-21 09:20 | CP.PCM.PN ---
Subjective - Date & Time of Evaluation Date of Evaluation: 03/21/18 Time of Evaluation: 09:20 - Subjective Subjective: FEELS BETTER APPETITE IMPROVED HEMOPTYSIS RESOLVED NO VISUAL DISTURBANCES NO CHEST PAINS/SOB Objective - Vital Signs/Intake and Output Vital Signs (last 24 hours): Temp Pulse Resp BP Pulse Ox 98.3 F 72 18 124/57 L 94 L 03/21/18 07:50 03/21/18 07:50 03/21/18 07:50 03/21/18 07:50 03/21/18 07:50 - Medications Medications: Current Medications Albuterol/Ipratropium (Duoneb 3 Mg/0.5 Mg (3 Ml) Ud) 3 ml INH RQ6 PRN PRN Reason: Shortness of Breath Apixaban (Eliquis) 2.5 mg PO BID [facility]; Protocol Last Admin: 03/20/18 16:55 Dose: 2.5 mg Aspirin (Aspirin Chewable) 81 mg PO DAILY [facility] Last Admin: 03/20/18 09:31 Dose: 81 mg Atorvastatin Calcium (Lipitor) 40 mg PO DAILY [facility] Last Admin: 03/20/18 09:31 Dose: 40 mg Carvedilol (Coreg) 6.25 mg PO BID [facility] [place] Last Admin: 03/20/18 17:48 Dose: 6.25 mg Folic Acid (Folic Acid) 1 mg PO DAILY [facility] [place] Last Admin: 03/20/18 09:29 Dose: 1 mg Furosemide (Lasix) 40 mg IV DAILY [facility] [place] Last Admin: 03/20/18 12:37 Dose: 40 mg Glipizide (Glucotrol) 5 mg PO DAILY [facility] [place] Last Admin: 03/20/18 09:31 Dose: 5 mg HCTZ/Losartan Potassium (Hyzaar 12.5 Mg-50 Mg) 1 tab PO DAILY [facility] [place] Last Admin: 03/20/18 12:38 Dose: 1 tab Vancomycin HCl 500 mg/ Sodium (Chloride) 100 mls @ 100 mls/hr IVPB Q12 [facility] [place]; Protocol Last Admin: 03/20/18 20:34 Dose: 100 mls/hr Ciprofloxacin (Cipro 400mg/200ml Dsw) 400 mg in 200 mls @ 200 mls/hr IVPB Q12 [facility] [place]; Protocol Last Admin: 03/20/18 20:33 Dose: 200 mls/hr Cefepime HCl 1 gm/ Sodium (Chloride) 100 mls @ 100 mls/hr IVPB Q12 [facility] [place]; Protocol Last Admin: 03/20/18 20:32 Dose: 100 mls/hr Insulin Human Regular (Humulin R) 0 units SC ACHS [facility] [place]; Protocol Last Admin: 03/21/18 06:44 Dose: Not Given Isosorbide Mononitrate (Imdur Er) 30 mg PO DAILY [facility] [place] Last Admin: 03/20/18 12:38 Dose: 30 mg Multivitamins/Minerals (Therapeutic-M Tab) 1 tab PO DAILY [facility] [place] Last Admin: 03/20/18 09:31 Dose: 1 tab Nystatin (Nystop Topical Powder) 1 applic TOP TID [facility] Last Admin: 03/20/18 17:05 Dose: Not Given Promethazine HCl/Dextromethorphan (Phenergan Dm Syrup) 10 ml PO Q6 PRN PRN Reason: Cough Last Admin: 03/20/18 17:06 Dose: 10 ml Fluticasone/Salmeterol (Advair Diskus 250/50) 1 puff INH BID [facility] Last Admin: 03/20/18 16:55 Dose: 1 puff - Labs Labs: 03/21/18 04:40 03/21/18 04:40 PT 14.6 Seconds (9.8-13.1) H 03/17/18 20:35 INR 1.3 03/17/18 20:35 APTT 32.1 Seconds (25.6-37.1) 03/17/18 20:35 - Constitutional Appears: No Acute Distress - Head Exam Head Exam: ATRAUMATIC, NORMAL INSPECTION, NORMOCEPHALIC - Eye Exam Eye Exam: EOMI, Normal appearance, PERRL Pupil Exam: NORMAL ACCOMODATION, PERRL - ENT Exam ENT Exam: Mucous Membranes Moist, Normal Exam - Neck Exam Neck Exam: Full ROM, Normal Inspection. absent: Lymphadenopathy - Respiratory Exam Respiratory Exam: Decreased Breath Sounds, Prolonged Expiratory Phase, Rales, NORMAL BREATHING PATTERN - Cardiovascular Exam Cardiovascular Exam: Irregular Rhythm, +S1, +S2. absent: Murmur - GI/Abdominal Exam GI & Abdominal Exam: Soft, Normal Bowel Sounds. absent: Tenderness - Rectal Exam Rectal Exam: NORMAL INSPECTION - Extremities Exam Extremities Exam: Full ROM, Pedal Edema. absent: Joint Swelling Additional comments: PEDAL EDEMA LESS - Back Exam Back Exam: NORMAL INSPECTION - Neurological Exam Neurological Exam: Alert, Awake, CN II-XII Intact, Normal Gait, Oriented x3 - Psychiatric Exam Psychiatric exam: Normal Affect, Normal Mood - Skin Skin Exam: Dry, Intact, Normal Color, Warm Assessment and Plan - Assessment and Plan (Free Text) Assessment: HCAP CHF DM ASHD COPD Plan: TRANSFER TO TCU CONTINUE CURRENT RX
[2018-03-21] MEDS: Fluticasone-Salmeterol 250-50mcg Diskus INH SCH (10:06)
[2018-03-21] MEDS: Multivitamin With Minerals Tab PO SCH (10:07)
[2018-03-21] MEDS: Cefepime 1 GM in Sodium Chloride 0.9% 100 ML IVPB SCH (10:07)
[2018-03-21] MEDS: HCTZ/Losartan 12.5/50 Tab PO SCH (10:08)
[2018-03-21] MEDS: Ciprofloxacin 400mg/200ml D5W 400 MG/200 ML BAG IVPB SCH (10:12)
[2018-03-21 11:53] VITALS: BP 118/61; TEMP 97.9; O2SAT 95
--- NOTE | 2018-03-21 15:49 | RAD ---
Date of service: 03/21/2018 HISTORY: PNEUMONIA/CHF COMPARISON: Comparison chest dated 03/19/2018 FINDINGS: LUNGS: Persistent bilateral lower lobe infiltrates with suspected small right and questionable tiny left-sided effusions. PLEURA: As above. No pneumothorax apparent. CARDIOVASCULAR: Mild aortic atherosclerotic calcification present. Cardiomegaly. No change sternotomy wires CABG clips or single pacer lead pacemaker/defibrillator. OSSEOUS STRUCTURES: Multilevel degenerative spondylosis of the thoracic spine VISUALIZED UPPER ABDOMEN: Normal. OTHER FINDINGS: None. IMPRESSION: Persistent bilateral lower lobe infiltrates right greater than left. Questionable small bilateral effusions right larger than left Marked cardiomegaly.
--- NOTE | 2018-03-25 10:53 | PQF ---
PROVIDER RESPONSE TEXT: HEALTH CARE ASSOCIATED PNEUMONIA--ORGANISM UNDETERMINED REVIEWER QUERY TEXT: Pneumonia Specificity Pneumonia probably hospital acquired is documented in the Medical Record. The term hospital acquired represents the method of acquisition and not the specific type of pneumonia. Please specify the type of pneumonia and the causative organism (includes probable or suspected) AFTER WORKUP. Sputum CS an d Urine for Legionella Pending. Such as: Type: -- Aspiration pneumonia (please also specify the aspirate) -- Bacterial (please document suspected or probable organism) -- Bronchopneumonia (please document suspected or probable organism) -- Interstitial pneumonia -- Organizing pneumonia / BOOP -- Viral -- Other, please specify The patient's Clinical Indicators include: Transferred from Subacute to the ER for blurry vision and a productive cough of blood tinged sputum. CXR: Persistent, worsening right lower lobe infiltrate. Sputum CS and Urine for Legionella Ag pending . Rx: Multiple IVAB Query created by: Courtney Gray on 03/20/2018 10:53 AM Electronically signed by: Binh Blanca MD 03/25/2018 10:49 AM
--- NOTE | 2018-03-25 10:53 | PQF ---
PROVIDER RESPONSE TEXT: ACUTE CHF REVIEWER QUERY TEXT: Acuity Specificity CHF , both diastolic and systolic dysfunction is documented in the Medical Record. Admitted with dolores rry vision and cough . Pro BNP 3020, CXR :RLL infiltrate. Treated with Lasix IV. Please specify the a cuity of this condition ( CHF) with terms such as: -- Acute -- Chronic -- Acute on chronic -- Other (please specify in the medical record) The patient's Clinical Indicators include: Admitted with blurry vision and cough . Pro BNP 3020, CXR :RLL infiltrate. Treated with Lasix IV. Query created by: Courtney Gray on 03/20/2018 10:41 AM Electronically signed by: Binh Blanca MD 03/25/2018 10:49 AM
--- NOTE | 2018-03-25 11:01 | PQF ---
PROVIDER RESPONSE TEXT: CHRONIC KIDNEY DISEASE STAGE 2--PROBABLY DUE TO POOR KIDNEY PERFUSSION FROM ASHD AND HTN REVIEWER QUERY TEXT: Kidney Disease, Chronic CKD Stage Chronic Kidney Disease (CKD) is documented in the Medical Record. Please specify the disease stage ( includes probable or suspected) Such as: -- Chronic kidney disease Stage 1 -- Chronic kidney disease Stage 2 -- Chronic kidney disease Stage 3 -- Chronic kidney disease Stage 4 -- Chronic kidney disease Stage 5 -- Chronic kidney disease Stage 5, requiring dialysis -- End Stage Renal Disease -- Other, please specify Stages are defined by the [employer] as follows: CKD Stage I GFR >= 90 ml / min per 1.73 m2 and persistent albuminuria CKD Stage 2 GFR between 60 and 89 with persistent albuminuria CKD Stage 3 GFR between 30 and 59 CKD Stage 4 GFR between 15 and 29 CKD Stage 5 GFR between <15 or End Stage Renal Disease The patient's Clinical Indicators include: BUN 68, 54, 47 Creatinine: 1.4, 1.3, 1.7 GFR: : > 60, 48 GFR: Non : 49, 54, 39 Query created by: Courtney Gray on 03/21/2018 10:48 AM Electronically signed by: Binh Blanca MD 03/25/2018 10:59 AM
--- NOTE | 2018-03-26 09:44 | CP.PCM.DIS ---
Provider - Provider Date of Admission: 03/17/18 22:07 Attending physician: Binh Blanca MD Consults: 03/18/18 07:42 Cardiology Consult Stat Comment: Consulting Provider: Gerardo Kincaid Consulting Physician: Gerardo Kincaid Reason for Consult: CHF 03/18/18 07:43 Infectious Disease Consult Stat Comment: Consulting Provider: Omid Ferrer Consulting Physician: Omid Ferrer Reason for Consult: HCAP 03/18/18 16:14 Case Management Referral Routine Comment: Physician Instructions: Reason For Exam: Reason for Referral: Discharge Planning Time Spent in preparation of Discharge (in minutes): 30 Diagnosis - Discharge Diagnosis (1) CHF (congestive heart failure) Status: Acute Priority: High (2) CHF exacerbation Status: Acute (3) CKD (chronic kidney disease) Status: Acute (4) COPD exacerbation Status: Acute Priority: High (5) DVT prophylaxis Status: Acute (6) Dyspnea Status: Acute (7) Hospital acquired PNA Status: Acute (8) Moderate COPD (chronic obstructive pulmonary disease) Status: Acute (9) Pacemaker Status: Acute (10) Respiratory distress Status: Acute (11) S/P CABG x 3 Status: Acute (12) CAD (coronary artery disease) Status: Chronic (13) Chronic kidney disease, stage III (moderate) Status: Chronic (14) Coronary atherosclerosis of [place] coronary artery Status: Chronic (15) Dementia Status: Chronic (16) Diabetes Status: Chronic (17) HTN (hypertension) Status: Chronic (18) Hx of CABG Status: Chronic Hospital Course - Lab Results Lab Results: Micro Results 03/17/18 22:53 Blood Blood Culture - Final NO GROWTH AFTER 5 DAYS 03/17/18 22:53 Blood Gram Stain - Final TEST NOT PERFORMED 03/17/18 23:15 Blood Blood Culture - Final NO GROWTH AFTER 5 DAYS 03/17/18 23:15 Blood Gram Stain - Final TEST NOT PERFORMED 03/18/18 19:32 Sputum Gram Stain - Final 03/18/18 19:32 Sputum Sputum Culture - Final NORMAL ORAL WENCESLAO Most Recent Lab Values WBC 9.7 K/uL (4.8-10.8) 03/21/18 04:40 RBC 3.33 Mil/uL (4.40-5.90) L 03/21/18 04:40 Hgb 10.2 g/dL (12.0-18.0) L 03/21/18 04:40 Hct 30.4 % (35.0-51.0) L 03/21/18 04:40 MCV 91.4 fl (80.0-94.0) D 03/21/18 04:40 MCH 30.7 pg (27.0-31.0) 03/21/18 04:40 MCHC 33.6 g/dL (33.0-37.0) 03/21/18 04:40 RDW 14.4 % (11.5-14.5) 03/21/18 04:40 Plt Count 173 K/uL (130-400) 03/21/18 04:40 MPV 9.2 fl (7.2-11.7) 03/21/18 04:40 Neut % (Auto) 70.7 % (50.0-75.0) 03/21/18 04:40 Lymph % (Auto) 11.2 % (20.0-40.0) L 03/21/18 04:40 Nicholas % (Auto) 14.7 % (0.0-10.0) H 03/21/18 04:40 Eos % (Auto) 3.3 % (0.0-4.0) 03/21/18 04:40 Baso % (Auto) 0.1 % (0.0-2.0) 03/21/18 04:40 Neut # (Auto) 6.9 K/uL (1.8-7.0) 03/21/18 04:40 Lymph # (Auto) 1.1 K/uL (1.0-4.3) 03/21/18 04:40 Nicholas # (Auto) 1.4 K/uL (0.0-0.8) H 03/21/18 04:40 Eos # (Auto) 0.3 K/uL (0.0-0.7) 03/21/18 04:40 Baso # (Auto) 0.0 K/uL (0.0-0.2) 03/21/18 04:40 PT 14.6 Seconds (9.8-13.1) H 03/17/18 20:35 INR 1.3 03/17/18 20:35 APTT 32.1 Seconds (25.6-37.1) 03/17/18 20:35 Sodium 135 mmol/l (132-148) 03/21/18 04:40 Potassium 4.5 MMOL/L (3.6-5.0) 03/21/18 04:40 Chloride 96 mmol/L (98-107) L 03/21/18 04:40 Carbon Dioxide 34 mmol/L (22-30) H 03/21/18 04:40 Anion Gap 10 (10-20) 03/21/18 04:40 BUN 47 mg/dl (9-20) H 03/21/18 04:40 Creatinine 1.7 mg/dl (0.8-1.5) H 03/21/18 04:40 Est GFR ( Amer) 48 03/21/18 04:40 Est GFR (Non-Af Amer) 39 03/21/18 04:40 POC Glucose (mg/dL) 322 mg/dL (65-110) H 03/21/18 10:59 Random Glucose 138 mg/dL (75-110) H 03/21/18 04:40 Lactic Acid 1.5 MMOL/L (0.7-2.1) 03/17/18 23:00 Calcium 7.7 mg/dL (8.4-10.2) L 03/21/18 04:40 Total Bilirubin 2.6 mg/dl (0.2-1.3) H 03/18/18 09:12 AST 27 U/L (17-59) 03/18/18 09:12 ALT 56 U/L (21-72) 03/18/18 09:12 Alkaline Phosphatase 70 U/L (38-126) 03/18/18 09:12 Troponin I 0.0130 ng/mL (0.00-0.120) 03/17/18 20:35 NT-Pro-B Natriuret Pep 1850 pg/ml (0-900) H 03/21/18 04:40 Total Protein 6.3 G/DL (6.3-8.2) 03/18/18 09:12 Albumin 3.7 g/dL (3.5-5.0) 03/18/18 09:12 Globulin 2.6 gm/dL (2.2-3.9) 03/18/18 09:12 Albumin/Globulin Ratio 1.4 (1.0-2.1) 03/18/18 09:12 Procalcitonin 0.10 NG/ML (0.19-0.49) L 03/21/18 04:40 Urine Color Yellow (YELLOW) 03/17/18 20:22 Urine Clarity Clear (Clear) 03/17/18 20:22 Urine pH 7.0 (5.0-8.0) 03/17/18 20:22 Ur Specific [place] 1.013 (1.003-1.030) 03/17/18 20:22 Urine Protein Negative mg/dL (NEGATIVE) 03/17/18 20:22 Urine Glucose (UA) >=500 mg/dL (NEGATIVE) 03/17/18 20:22 Urine Ketones Negative mg/dL (NEGATIVE) 03/17/18 20:22 Urine Blood Negative (NEGATIVE) 03/17/18 20:22 Urine Nitrate Negative (NEGATIVE) 03/17/18 20:22 Urine Bilirubin Negative (NEGATIVE) 03/17/18 20:22 Urine Urobilinogen 0.2-1.0 mg/dL (0.2-1.0) 03/17/18 20:22 Ur Leukocyte Esterase Neg Henry/uL (Negative) 03/17/18 20:22 Urine RBC (Auto) < 1 /hpf (0-3) 03/17/18 20:22 Urine Microscopic WBC < 1 /hpf (0-5) 03/17/18 20:22 Vancomycin Trough 11.4 ug/mL (5.0-10.0) H 03/21/18 07:30 Influenza Typ A,B (EIA) Negative for flu a/b (NEGATIVE) 03/17/18 20:22 Ur L.pneumophila Ag Negative (NEGATIVE) 03/19/18 08:00 - Hospital Course Hospital Course: CLINICALLY IMPROVED Discharge Exam - Head Exam Head Exam: ATRAUMATIC, NORMAL INSPECTION, NORMOCEPHALIC - Eye Exam Eye Exam: EOMI, Normal appearance, PERRL Pupil Exam: NORMAL ACCOMODATION, PERRL - GI/Abdominal Exam GI & Abdominal Exam: Normal Bowel Sounds - Rectal Exam Rectal Exam: NORMAL INSPECTION - Extremities Exam Extremities exam: pedal edema - Neurological Exam Neurological exam: Alert, CN II-XII Intact, Normal Gait, Oriented x3, Reflexes Normal - Psychiatric Exam Psychiatric exam: Normal Affect, Normal Mood - Skin Skin Exam: Dry, Intact, Normal Color, Warm Discharge Plan - Discharge Medications Prescriptions: Cefepime [Maxipime] 1 gm IV Q12 #10 vial Vancomycin 500mg in NS 500 mg IVPB Q12 #10 bag - Follow Up Plan Condition: FAIR Disposition: TRANSF TO SNF Instructions: Heart Failure, Adult (DC), Pneumonia, Adult (DC) Additional Instructions: Activity as tolerated Daily weight. Referrals: Binh Blanca MD [Staff Provider] - Gerardo Kincaid MD [Staff Provider] -
== END 2018-03-21 14:33 | DRG 193 ==
LOC: H.ER 19:17 → H.ERHOLD 22:07 → H.TEL 03-18 13:58
PROVIDERS: ADMIT Internal Medicine Pulmonary Disease; ATTEND Internal Medicine Pulmonary Disease
DX: J18.9 Pneumonia, unspecified organism (principal); I50.43 Acute on chronic combined systolic (congestive) and diastolic (congestive) heart failure; I13.0 Hypertensive heart and chronic kidney disease with heart failure and stage 1 through stage 4 chronic kidney disease, or unspecified chronic kidney disease; J44.0 Chronic obstructive pulmonary disease with (acute) lower respiratory infection; R04.2 Hemoptysis; J44.1 Chronic obstructive pulmonary disease with (acute) exacerbation; Y95 Nosocomial condition; I48.2 Chronic atrial fibrillation; E11.65 Type 2 diabetes mellitus with hyperglycemia; Z80.8 Family history of malignant neoplasm of other organs or systems; E11.22 Type 2 diabetes mellitus with diabetic chronic kidney disease; E78.00 Pure hypercholesterolemia, unspecified; F03.90 Unspecified dementia, unspecified severity, without behavioral disturbance, psychotic disturbance, mood disturbance, and anxiety; I25.10 Atherosclerotic heart disease of native coronary artery without angina pectoris; Z86.73 Personal history of transient ischemic attack (TIA), and cerebral infarction without residual deficits; Z87.01 Personal history of pneumonia (recurrent); Z87.891 Personal history of nicotine dependence; Z95.0 Presence of cardiac pacemaker; Z95.1 Presence of aortocoronary bypass graft; D64.9 Anemia, unspecified; K29.70 Gastritis, unspecified, without bleeding; M19.90 Unspecified osteoarthritis, unspecified site; H53.8 Other visual disturbances; R94.4 Abnormal results of kidney function studies; N18.3 Chronic kidney disease, stage 3 (moderate)

== ENCOUNTER 2018-03-21 12:45 | Inpatient (IN) | payer OTHER, BC ==
[2018-03-21 14:11] VITALS: BMI 38.4
[2018-03-21] MEDS: Insulin Regular 100 units/ml SC SCH ×2 (16:36→22:28)
[2018-03-21] MEDS: Fluticasone-Salmeterol 250-50mcg Diskus INH SCH (20:13)
[2018-03-21] MEDS: Albuterol-Ipratrop 3 mg / 0.5 (3 ml) UD INH PRN (20:42)
[2018-03-21] MEDS ORDERED: Cefepime (Maxipime) 1 g Inj IVPB SCH (21:00)
[2018-03-21] MEDS: CEFEPIME IVPB SCH (21:17)
[2018-03-21] MEDS: NS IVPB SCH (21:17)
[2018-03-22] MEDS: Insulin Regular 100 units/ml SC SCH ×4 (06:33→22:12)
[2018-03-22] MEDS: NS IVPB SCH ×2 (09:33→22:09)
[2018-03-22] MEDS: CEFEPIME IVPB SCH ×2 (09:33→22:09)
[2018-03-22] MEDS: Fluticasone-Salmeterol 250-50mcg Diskus INH SCH ×2 (09:34→16:04)
[2018-03-22] MEDS: HCTZ/Losartan 12.5/50 Tab PO SCH (10:35)
[2018-03-22] MEDS: Multivitamin With Minerals Tab PO SCH (10:36)
--- NOTE | 2018-03-22 10:57 | CP.PCM.HP ---
History of Present Illness - History of Present Illness History of Present Illness: 77 YR OLD MALE ADMITTED FROM [facility] BECAUSE OF PNEUMONIA AND CHF. HX OF COPD,HTN,CHF AND ARRYTHMIAS/S/P PACEMAKER PLACEMENT AND ASHD FAMILY HX IS NON-REVEALING Present on Admission - Present on Admission Any Indicators Present on Admission: No Past Patient History - Infectious Disease Hx of Infectious Diseases: None - Tetanus Immunizations Tetanus Immunization: Unknown - Past Medical History & Family History Past Medical History?: Yes - Past Social History Smoking Status: Former Smoker - CARDIAC Hx Atrial Fibrillation: Yes Hx Congestive Heart Failure: Yes Hx Hypercholesterolemia: Yes Hx Hypertension: Yes Hx Pacemaker: Yes (11/2017) Hx Peripheral Edema: Yes - PULMONARY Hx Bronchitis: Yes Hx Chronic Obstructive Pulmonary Disease (COPD): Yes Hx Emphysema: Yes Hx Pneumonia: Yes - NEUROLOGICAL Hx Dementia: Yes - HEENT Hx HEENT Problems: No - RENAL Hx Chronic Kidney Disease: Yes (CKD) - ENDOCRINE/METABOLIC Hx Endocrine Disorders: No - HEMATOLOGICAL/ONCOLOGICAL Hx Anemia: Yes Hx Human Immunodeficiency Virus (HIV): No - INTEGUMENTARY Hx Dermatological Problems: No - MUSCULOSKELETAL/RHEUMATOLOGICAL Hx Arthritis: Yes Hx Falls: No - GASTROINTESTINAL Hx Gastritis: Yes - GENITOURINARY/GYNECOLOGICAL Hx Genitourinary Disorders: No - PSYCHIATRIC Hx Psychophysiologic Disorder: No Hx Substance Use: No - SURGICAL HISTORY Hx Coronary Artery Bypass Graft: Yes (in 2005) - ANESTHESIA Hx Anesthesia: Yes Hx Anesthesia Reactions: No Hx Malignant Hyperthermia: No Meds Allergies/Adverse Reactions: Allergies Allergy/AdvReac Type Severity Reaction Status Date / Time No Known Allergies Allergy Verified 03/21/18 14:07 Physical Exam - Constitutional Appears: Well, No Acute Distress - Head Exam Head Exam: ATRAUMATIC, NORMAL INSPECTION, NORMOCEPHALIC - Eye Exam Eye Exam: EOMI, Normal appearance, PERRL Pupil Exam: NORMAL ACCOMODATION, PERRL - ENT Exam ENT Exam: Mucous Membranes Moist, Normal Exam - Neck Exam Neck exam: Positive for: Normal Inspection - Respiratory Exam Respiratory Exam: Prolonged Expiratory Phase, NORMAL BREATHING PATTERN - Cardiovascular Exam Cardiovascular Exam: REGULAR RHYTHM - GI/Abdominal Exam GI & Abdominal Exam: Normal Bowel Sounds, Soft. absent: Tenderness - Rectal Exam Rectal Exam: NORMAL INSPECTION - Extremities Exam Extremities exam: Positive for: pedal edema - Back Exam Back exam: NORMAL INSPECTION - Neurological Exam Neurological exam: Alert, CN II-XII Intact, Normal Gait, Oriented x3, Reflexes Normal - Psychiatric Exam Psychiatric exam: Normal Affect, Normal Mood - Skin Skin Exam: Dry, Intact, Normal Color, Warm Results - Vital Signs Recent Vital Signs: Last Vital Signs Temp 98.4 F 03/22/18 10:05 Pulse 77 03/22/18 10:36 Resp 20 03/22/18 10:05 BP 126/79 03/22/18 10:36 Pulse Ox 93 L 03/22/18 10:05 - Labs Labs: Laboratory Results - last 24 hr 03/21/18 03/21/18 03/22/18 16:12 20:54 05:16 POC Glucose (mg/dL) 65 85 117 H Assessment & Plan - Assessment and Plan (Free Text) Assessment: HCAP CHF ASHD HTN COPD DECONDITIONING Plan: CONTINUE RX ORDERED - Date & Time Date: 03/22/18 Time: 10:59
--- NOTE | 2018-03-22 13:48 | CP.PCM.CON ---
History of Present Illness - History of Present Illness History of Present Illness: 77 year old male with a history of DM CHF, afib COPD and hypertension was recently admitted with dx of HCAP and placed on IV antibiotics ID consulted for this All cultures were negative but his clinical condition is improving o n IV antibiotics for HCAP He is now transferred to TCU for cont of care as well as PT/OT - Medical History PMH: Anemia, Arthritis, Atrial Fibrillation, Bronchitis, CAD, CHF, COPD, CVA (mild), Dementia, Diabetes (type II), Emphysema, Gastritis, HTN, Hypercholesterolemia, Peripheral Edema, Pneumonia, Chronic Kidney Disease (CKD) Denies: HIV Review of Systems - Constitutional Constitutional: Weakness - EENT Eyes: absent: As Per HPI, Blind Spots, Blurred Vision, Change in Vision, Decreased Night Vision, Diplopia, Discharge, Dry Eye, Exophthalmos, Floaters, Irritation, Itchy Eyes, Loss of Peripheral Vision, Pain, Photophobia, Requires Corrective Lenses, Sees Flashes, Spots in Vision, Tunnel Vision, Other Visual Disturbances, Loss of Vision, Other Ears: absent: As Per HPI, Decreased Hearing, Ear Discharge, Ear Pain, Tinnitus, Abnormal Hearing, Disequilibrium, Dizziness, Other Nose/Mouth/Throat: absent: As Per HPI, Epistaxis, Nasal Congestion, Nasal Discharge, Nasal Obstruction, Nasal Trauma, Nose Pain, Post Nasal Drip, Sinus Pain, Sinus Pressure, Bleeding Gums, Change in Voice, Dental Pain, Dry Mouth, Dysphagia, Halitosis, Hoarsness, Lip Swelling, Mouth Lesions, Mouth Pain, Odynophagia, Sore Throat, Throat Swelling, Tongue Swelling, Facial Pain, Neck Pain, Neck Mass, Other - Cardiovascular Cardiovascular: absent: As Per HPI, Acrocyanosis, Chest Pain, Chest Pain at Rest, Chest Pain with Activity, Claudication, Diaphoresis, Dyspnea, Dyspnea on Exertion, Edema, Irregular Heart Rhythm, Pain Radiating to Arm/Neck/Jaw, Leg Edema, Leg Ulcers, Lightheadedness, Orthopnea, Palpitations, Paroxysmal Nocturnal Dyspnea, Pedal Edema, Radiating Pain, Rapid Heart Rate, Slow Heart Rate, Syncope, Other - Respiratory Respiratory: absent: As Per HPI, Cough, Dyspnea, Hemoptysis, Dyspnea on Exertion, Wheezing, Snoring, Stridor, Pain on Inspiration, Chest Congestion, Excessive Mucous Production, Change in Mucous Color, Pain with Coughing, Other - Gastrointestinal Gastrointestinal: absent: As Per HPI, Abdominal Pain, Belching, Bloating, Change in Bowel Habits, Change in Stool Character, Coffee Ground Emesis, Constipation, Cramping, Diarrhea, Dyspepsia, Dysphagia, Early Satiety, Excessive Flatus, Fecal Incontinence, Heartburn, Hematemesis, Hematochezia, Loose Stools, Melena, Nausea, Odynophagia, Temesmus, Vomiting, Other - Genitourinary Genitourinary: absent: As Per HPI, Change in Urinary Stream, Difficulty Urinating, Dysuria, Flank Pain, Hematuria, Pyuria, Nocturia, Urinary Incontinence, Urinary Frequency, Urinary Hesitance, Urinary Urgency, Voiding Freq/Small Amts, Freq UTI, Hx Renal/Bladder Calculi, Hx /Renal Surgery, B ladder Distension, Other - Musculoskeletal Musculoskeletal: absent: As Per HPI, Abnormal Gait, Arthralgias, Atrophy, Back Pain, Deformity, Joint Swelling, Limited Range of Motion, Loss of Height, Muscle Cramps, Muscle Weakness, Myalgias, Neck Pain, Numbness, Radiating Pain into Limb, Stiffness, Tingling, Other - Integumentary Integumentary: absent: As Per HPI, Acne, Alopecia, Bleeding Lesions, Change in Hair, Change in Nails, Change in Pigmentation, Changing Lesions, Dry Skin, Erythema, Furuncle, Hirsutism, Lesions, New Lesions, Non-Healing Lesions, Photosensitivity, Pruritus, Rash, Skin Pain, Skin Ulcer, Sores, Striae, Swelling, Unusual Bruising, Wounds, Jaundice, Other - Neurological Neurological: absent: As Per HPI, Abnormal Gait, Abnormal Hearing, Abnormal Movements, Abnormal Speech, Behavioral Changes, Burning Sensations, Confusion, Convulsions, Disequilibrium, Dizziness, Numbness, Focal Weakness, Frequent Falls, Headaches, Lack of Coordination, Loss of Vision, Memory Loss, Paresthesias, Radicular Pain, Restless Legs, Sensory Deficit, Syncope, Tingling, Tremor, Vertigo, Weakness, Other Visual Disturbances, Other - Psychiatric Psychiatric: absent: As Per HPI, Abnormal Sleep Pattern, Anhedonia, Anxiety, Auditory Hallucinations, Behavioral Changes, Change in Appetite, Change in Libido, Confusion, Depression, Difficulty Concentrating, Hallucinations, Homicidal Ideation, Hopelessness, Irritability, Memory Loss, Mood Swings, Panic Attacks, Paranoia, Suicidal Ideation, Visual Hallucinations, Tactile Hallucinations, Other - Endocrine Endocrine: absent: As Per HPI, Change in Body Appearance, Change in Libido, Cold Intolorance, Deepening of Voice, Excessive Sweating, Fatigue, Flushing, Heat Intolorance, Increase in Ring/Shoe/Hat Size, Palpitations, Polydipsia, Polyphagia, Polyuria, Other - Hematologic/Lymphatic Hematologic: absent: As Per HPI, Easy Bleeding, Easy Bruising, Lymphadenopathy, Other Past Patient History - Infectious Disease Hx of Infectious Diseases: None - Tetanus Immunizations Tetanus Immunization: Unknown - Past Medical History & Family History Past Medical History?: Yes - Past Social History Smoking Status: Former Smoker - CARDIAC Hx Atrial Fibrillation: Yes Hx Congestive Heart Failure: Yes Hx Hypercholesterolemia: Yes Hx Hypertension: Yes Hx Pacemaker: Yes (11/2017) Hx Peripheral Edema: Yes - PULMONARY Hx Bronchitis: Yes Hx Chronic Obstructive Pulmonary Disease (COPD): Yes Hx Emphysema: Yes Hx Pneumonia: Yes - NEUROLOGICAL Hx Dementia: Yes - HEENT Hx HEENT Problems: No - RENAL Hx Chronic Kidney Disease: Yes (CKD) - ENDOCRINE/METABOLIC Hx Endocrine Disorders: No - HEMATOLOGICAL/ONCOLOGICAL Hx Anemia: Yes Hx Human Immunodeficiency Virus (HIV): No - INTEGUMENTARY Hx Dermatological Problems: No - MUSCULOSKELETAL/RHEUMATOLOGICAL Hx Arthritis: Yes Hx Falls: No - GASTROINTESTINAL Hx Gastritis: Yes - GENITOURINARY/GYNECOLOGICAL Hx Genitourinary Disorders: No - PSYCHIATRIC Hx Psychophysiologic Disorder: No Hx Substance Use: No - SURGICAL HISTORY Hx Coronary Artery Bypass Graft: Yes (in 2005) - ANESTHESIA Hx Anesthesia: Yes Hx Anesthesia Reactions: No Hx Malignant Hyperthermia: No Meds Allergies/Adverse Reactions: Allergies Allergy/AdvReac Type Severity Reaction Status Date / Time No Known Allergies Allergy Verified 03/21/18 14:07 - Medications Medications: Current Medications Acetaminophen (Tylenol 325mg Tab) 650 mg PO Q4 PRN PRN Reason: Pain, moderate (4-7) Albuterol/Ipratropium (Duoneb 3 Mg/0.5 Mg (3 Ml) Ud) 3 ml INH RQ6 PRN PRN Reason: Shortness of Breath Last Admin: 03/21/18 20:42 Dose: 3 ml Apixaban (Eliquis) 2.5 mg PO Q12 [facility]; Protocol Last Admin: 03/22/18 10:35 Dose: 2.5 mg Aspirin (Aspirin Chewable) 81 mg PO DAILY [facility] Last Admin: 03/22/18 10:35 Dose: 81 mg Atorvastatin Calcium (Lipitor) 40 mg PO DAILY [facility] Last Admin: 03/22/18 10:37 Dose: 40 mg Carvedilol (Coreg) 6.25 mg PO BID [facility] Last Admin: 03/22/18 10:36 Dose: 6.25 mg Folic Acid (Folic Acid) 1 mg PO DAILY [facility] Last Admin: 03/22/18 10:35 Dose: 1 mg Furosemide (Lasix) 40 mg PO DAILY [facility] Last Admin: 03/22/18 10:35 Dose: 40 mg Glipizide (Glucotrol) 5 mg PO DAILY [facility] Last Admin: 03/22/18 10:39 Dose: 5 mg HCTZ/Losartan Potassium (Hyzaar 12.5 Mg-50 Mg) 1 tab PO DAILY [facility] Last Admin: 03/22/18 10:35 Dose: 1 tab Vancomycin HCl 500 mg/ Sodium (Chloride) 100 mls @ 100 mls/hr IVPB Q12 [facility]; Protocol Last Admin: 03/22/18 09:32 Dose: 100 mls/hr Cefepime HCl 1 gm/ Sodium (Chloride) 100 mls @ 100 mls/hr IVPB Q12 [facility] Last Admin: 03/22/18 09:33 Dose: 100 mls/hr Insulin Human Regular (Humulin R) 0 units SC ACHS [facility]; Protocol Last Admin: 03/22/18 11:12 Dose: 1 unit Isosorbide Mononitrate (Imdur Er) 30 mg PO DAILY [facility] Last Admin: 03/22/18 10:36 Dose: 30 mg Multivitamins/Minerals (Therapeutic-M Tab) 1 tab PO DAILY [facility] Last Admin: 03/22/18 10:36 Dose: 1 tab Nystatin (Nystop Topical Powder) 1 applic TOP TID [facility] Last Admin: 03/22/18 10:37 Dose: 1 applic Promethazine HCl/Dextromethorphan (Phenergan Dm Syrup) 10 ml PO Q6 PRN PRN Reason: Cough Fluticasone/Salmeterol (Advair Diskus 250/50) 1 puff INH BID [facility] Last Admin: 03/22/18 09:34 Dose: 1 puff Physical Exam - Constitutional Appears: Non-toxic, No Acute Distress, Chronically Ill - Head Exam Head Exam: ATRAUMATIC, NORMAL INSPECTION, NORMOCEPHALIC - Eye Exam Eye Exam: PERRL. absent: Scleral icterus - ENT Exam ENT Exam: Mucous Membranes Dry - Neck Exam Neck exam: Negative for: Lymphadenopathy - Respiratory Exam Respiratory Exam: Decreased Breath Sounds, Prolonged Expiratory Phase, Rhonchi - Cardiovascular Exam Cardiovascular Exam: REGULAR RHYTHM, +S1, +S2 - GI/Abdominal Exam GI & Abdominal Exam: Diminished Bowel Sounds, Soft. absent: Tenderness - Rectal Exam Rectal Exam: Deferred - Exam Exam: NORMAL INSPECTION - Extremities Exam Extremities exam: Positive for: normal capillary refill, pedal edema, pedal pulses present. Negative for: calf tenderness, normal inspection, tenderness - Back Exam Back exam: absent: CVA tenderness (L), CVA tenderness (R) - Neurological Exam Neurological exam: Alert, CN II-XII Intact, Oriented x3, Reflexes Normal - Psychiatric Exam Psychiatric exam: Depressed - Skin Skin Exam: Dry Results - Vital Signs Recent Vital Signs: Last Vital Signs Temp 98.4 F 03/22/18 10:05 Pulse 77 03/22/18 10:36 Resp 20 03/22/18 10:05 BP 126/79 03/22/18 10:36 Pulse Ox 93 L 03/22/18 10:05 - Labs Labs: Laboratory Results - last 24 hr 03/21/18 03/21/18 03/22/18 16:12 20:54 05:16 POC Glucose (mg/dL) 65 85 117 H 03/22/18 10:57 POC Glucose (mg/dL) 191 H Assessment & Plan - Assessment and Plan (Free Text) Assessment: 77 year old male with a history of DM CHF, afib COPD and hypertension was recently admitted with dx of HCAP and placed on IV antibiotics ID consulted for this All cultures were negative but his clinical condition is improving on IV antibiotics for HCAP He is now transferred to TCU for cont of care as well as PT/OT His heplock is innflamed - will have it changed IV antibiotics reordered
[2018-03-22] MEDS: Promethazine DM 12.5 mg-30 mg/10 ml Syrup PO PRN ×2 (15:56→22:11)
[2018-03-23] MEDS: Insulin Regular 100 units/ml SC SCH ×4 (06:37→23:48)
[2018-03-23 07:07] LABS: BASO % 0.5 % (0.0-2.0); EOS # 0.3 K/uL (0.0-0.7); EOS % 2.9 % (0.0-4.0); LYMPH % 11.5 % (20.0-40.0); MEAN CELL VOLUME 90.5 fl (80.0-94.0); MEAN CORPUSCULAR HEMOGLOBIN 30.6 pg (27.0-31.0); MEAN CORPUSCULAR HGB CONC 33.9 g/dL (33.0-37.0); MONO # 1.5 K/uL (0.0-0.8); MONO % 16.6 % (0.0-10.0); NEUT # 6.2 K/uL (1.8-7.0); NEUT % 68.5 % (50.0-75.0); RBC 3.25 Mil/uL (4.40-5.90); RED CELL DISTRIBUTION WIDTH 13.9 % (11.5-14.5)
[2018-03-23 07:25] LABS: ALB/GLOB RATIO 1.1 (1.0-2.1); ALBUMIN 3.4 g/dL (3.5-5.0); CALCIUM 8.3 mg/dL (8.4-10.2)
[2018-03-23] MEDS: Fluticasone-Salmeterol 250-50mcg Diskus INH SCH ×2 (09:02→17:44)
[2018-03-23] MEDS: Promethazine DM 12.5 mg-30 mg/10 ml Syrup PO PRN ×3 (09:02→22:12)
[2018-03-23] MEDS: Multivitamin With Minerals Tab PO SCH (09:03)
[2018-03-23] MEDS: HCTZ/Losartan 12.5/50 Tab PO SCH (09:03)
[2018-03-23] MEDS: CEFEPIME IVPB SCH ×2 (09:05→23:51)
[2018-03-23] MEDS: NS IVPB SCH ×2 (09:05→23:51)
[2018-03-24] MEDS: NS IVPB SCH ×2 (04:13→16:34)
[2018-03-24] MEDS: CEFEPIME IVPB SCH ×2 (04:13→16:34)
[2018-03-24] MEDS: Insulin Regular 100 units/ml SC SCH ×4 (07:39→21:40)
[2018-03-24] MEDS: Fluticasone-Salmeterol 250-50mcg Diskus INH SCH ×2 (08:33→17:17)
[2018-03-24] MEDS: HCTZ/Losartan 12.5/50 Tab PO SCH (08:35)
[2018-03-24] MEDS: Multivitamin With Minerals Tab PO SCH (08:35)
--- NOTE | 2018-03-24 09:26 | CP.PCM.PN ---
Subjective - Date & Time of Evaluation Date of Evaluation: 03/24/18 Time of Evaluation: 09:26 - Subjective Subjective: PERTAKING IN PT/OT LESS SOB NO CHEST PAINS COUGH LESS Objective - Vital Signs/Intake and Output Vital Signs (last 24 hours): Temp Pulse Resp BP Pulse Ox 97.6 F 85 18 130/60 98 03/24/18 08:34 03/24/18 08:34 03/24/18 08:34 03/24/18 08:35 03/24/18 08:34 - Medications Medications: Current Medications Acetaminophen (Tylenol 325mg Tab) 650 mg PO Q4 PRN PRN Reason: Pain, moderate (4-7) Albuterol/Ipratropium (Duoneb 3 Mg/0.5 Mg (3 Ml) Ud) 3 ml INH RQ6 PRN PRN Reason: Shortness of Breath Last Admin: 03/21/18 20:42 Dose: 3 ml Apixaban (Eliquis) 2.5 mg PO Q12 [facility]; Protocol Last Admin: 03/24/18 08:34 Dose: 2.5 mg Aspirin (Aspirin Chewable) 81 mg PO DAILY [facility] Last Admin: 03/24/18 08:34 Dose: 81 mg Atorvastatin Calcium (Lipitor) 40 mg PO DAILY@2100 [facility] Carvedilol (Coreg) 6.25 mg PO BID [facility] Last Admin: 03/24/18 08:34 Dose: 6.25 mg Folic Acid (Folic Acid) 1 mg PO DAILY [facility] Last Admin: 03/24/18 08:34 Dose: 1 mg Furosemide (Lasix) 40 mg PO DAILY [facility] Last Admin: 03/24/18 08:35 Dose: 40 mg Glipizide (Glucotrol) 5 mg PO DAILY [facility] Last Admin: 03/24/18 08:34 Dose: 5 mg HCTZ/Losartan Potassium (Hyzaar 12.5 Mg-50 Mg) 1 tab PO DAILY [facility] Last Admin: 03/24/18 08:35 Dose: 1 tab Vancomycin HCl 500 mg/ Sodium (Chloride) 100 mls @ 100 mls/hr IVPB Q12@0500,1700 [facility]; Protocol Last Admin: 03/24/18 04:08 Dose: 100 mls/hr Cefepime HCl 1 gm/ Sodium (Chloride) 100 mls @ 100 mls/hr IVPB Q12@0500,1700 [facility] Last Admin: 03/24/18 04:13 Dose: 100 mls/hr Insulin Human Regular (Humulin R) 0 units SC ACHS [facility]; Protocol Last Admin: 03/24/18 07:39 Dose: Not Given Isosorbide Mononitrate (Imdur Er) 30 mg PO DAILY [facility] Last Admin: 03/24/18 08:35 Dose: 30 mg Multivitamins/Minerals (Therapeutic-M Tab) 1 tab PO DAILY [facility] Last Admin: 03/24/18 08:35 Dose: 1 tab Nystatin (Nystop Topical Powder) 1 applic TOP TID [facility] Last Admin: 03/24/18 08:34 Dose: 1 applic Promethazine HCl/Dextromethorphan (Phenergan Dm Syrup) 10 ml PO Q6 PRN PRN Reason: Cough Last Admin: 03/23/18 22:12 Dose: 10 ml Fluticasone/Salmeterol (Advair Diskus 250/50) 1 puff INH BID [facility] Last Admin: 03/24/18 08:33 Dose: 1 puff - Labs Labs: 03/23/18 06:05 03/23/18 06:05 - Constitutional Appears: No Acute Distress - Head Exam Head Exam: ATRAUMATIC, NORMAL INSPECTION, NORMOCEPHALIC - Eye Exam Eye Exam: EOMI, Normal appearance, PERRL Pupil Exam: NORMAL ACCOMODATION, PERRL - ENT Exam ENT Exam: Mucous Membranes Moist, Normal Exam - Neck Exam Neck Exam: Full ROM, Normal Inspection. absent: Lymphadenopathy - Respiratory Exam Respiratory Exam: Prolonged Expiratory Phase, NORMAL BREATHING PATTERN - Cardiovascular Exam Cardiovascular Exam: REGULAR RHYTHM, +S1, +S2. absent: Murmur - GI/Abdominal Exam GI & Abdominal Exam: Soft, Normal Bowel Sounds. absent: Tenderness - Rectal Exam Rectal Exam: NORMAL INSPECTION - Extremities Exam Extremities Exam: Full ROM, Pedal Edema. absent: Joint Swelling - Back Exam Back Exam: NORMAL INSPECTION - Neurological Exam Neurological Exam: Alert, Awake, CN II-XII Intact, Normal Gait, Oriented x3 - Psychiatric Exam Psychiatric exam: Normal Affect, Normal Mood - Skin Skin Exam: Dry, Intact, Normal Color, Warm Assessment and Plan - Assessment and Plan (Free Text) Assessment: PNEUMONIA--IMPROVED ASHD CHF--IMPROVING COPD Plan: CONTINUE CURRENT RX
[2018-03-24] MEDS: Albuterol-Ipratrop 3 mg / 0.5 (3 ml) UD INH PRN (18:07)
[2018-03-24] MEDS: Promethazine DM 12.5 mg-30 mg/10 ml Syrup PO PRN (18:39)
[2018-03-25] MEDS: Albuterol-Ipratrop 3 mg / 0.5 (3 ml) UD INH PRN ×2 (00:25→05:44)
[2018-03-25] MEDS: CEFEPIME IVPB SCH (04:05)
[2018-03-25] MEDS: NS IVPB SCH (04:05)
[2018-03-25] MEDS: Promethazine DM 12.5 mg-30 mg/10 ml Syrup PO PRN ×4 (05:08→22:10)
[2018-03-25] MEDS: Insulin Regular 100 units/ml SC SCH ×4 (06:45→22:10)
[2018-03-25] MEDS: Fluticasone-Salmeterol 250-50mcg Diskus INH SCH ×2 (09:08→22:09)
[2018-03-25] MEDS: HCTZ/Losartan 12.5/50 Tab PO SCH (09:13)
[2018-03-25] MEDS: Multivitamin With Minerals Tab PO SCH (09:13)
--- NOTE | 2018-03-25 10:39 | RAD ---
Date of service: 03/25/2018 HISTORY: pna COMPARISON: Frontal chest radiograph 03/21/2018. FINDINGS: LUNGS: No active pulmonary disease. Prior right basilar infiltrate now not identified. PLEURA: No significant pleural effusion identified, no pneumothorax apparent. CARDIOVASCULAR: Calcific atherosclerotic changes are seen related to the thoracic aorta. Cardiomegaly reiterated. No pulmonary vascular congestion. Post CABG changes reiterated as well as unipolar permanent cardiac pacemaker. OSSEOUS STRUCTURES: No significant abnormalities. VISUALIZED UPPER ABDOMEN: Normal. OTHER FINDINGS: None. IMPRESSION: Stable cardiomegaly. No pulmonary vascular congestion. Improved aeration at the right base with no definite infiltrate now identified.
--- NOTE | 2018-03-25 10:57 | CP.PCM.PN ---
Subjective - Date & Time of Evaluation Date of Evaluation: 03/25/18 Time of Evaluation: 10:57 - Subjective Subjective: HAD AN EPISODE OF SOB AND WHEEZING TODAY FEELS BETTER NOW Objective - Vital Signs/Intake and Output Vital Signs (last 24 hours): Temp Pulse Resp BP Pulse Ox 97.8 F 65 20 128/70 97 03/25/18 08:31 03/25/18 09:12 03/25/18 08:31 03/25/18 10:45 03/25/18 08:31 - Medications Medications: Current Medications Acetaminophen (Tylenol 325mg Tab) 650 mg PO Q4 PRN PRN Reason: Pain, moderate (4-7) Albuterol/Ipratropium (Duoneb 3 Mg/0.5 Mg (3 Ml) Ud) 3 ml INH RQ6 PRN PRN Reason: Shortness of Breath Last Admin: 03/25/18 05:44 Dose: 3 ml Apixaban (Eliquis) 2.5 mg PO Q12 [facility]; Protocol Last Admin: 03/25/18 09:12 Dose: 2.5 mg Aspirin (Aspirin Chewable) 81 mg PO DAILY [facility] Last Admin: 03/25/18 09:12 Dose: 81 mg Atorvastatin Calcium (Lipitor) 40 mg PO DAILY@2100 [facility] Last Admin: 03/24/18 20:27 Dose: 40 mg Carvedilol (Coreg) 6.25 mg PO BID [facility] Last Admin: 03/25/18 09:12 Dose: 6.25 mg Folic Acid (Folic Acid) 1 mg PO DAILY [facility] Last Admin: 03/25/18 09:12 Dose: 1 mg Furosemide (Lasix) 40 mg PO DAILY [facility] Last Admin: 03/25/18 09:13 Dose: 40 mg Glipizide (Glucotrol) 5 mg PO DAILY [facility] Last Admin: 03/25/18 09:12 Dose: 5 mg HCTZ/Losartan Potassium (Hyzaar 12.5 Mg-50 Mg) 1 tab PO DAILY [facility] Last Admin: 03/25/18 09:13 Dose: 1 tab Vancomycin HCl 500 mg/ Sodium (Chloride) 100 mls @ 100 mls/hr IVPB Q12@0500,1700 [facility]; Protocol Last Admin: 03/25/18 05:02 Dose: 100 mls/hr Cefepime HCl 1 gm/ Sodium (Chloride) 100 mls @ 100 mls/hr IVPB Q12@0500,1700 [facility] Last Admin: 03/25/18 04:05 Dose: 100 mls/hr Insulin Human Regular (Humulin R) 0 units SC ACHS [facility]; Protocol Last Admin: 03/25/18 06:45 Dose: Not Given Isosorbide Mononitrate (Imdur Er) 30 mg PO DAILY [facility] Last Admin: 03/25/18 09:13 Dose: 30 mg Multivitamins/Minerals (Therapeutic-M Tab) 1 tab PO DAILY [facility] Last Admin: 03/25/18 09:13 Dose: 1 tab Nystatin (Nystop Topical Powder) 1 applic TOP TID [facility] Last Admin: 03/25/18 09:08 Dose: 1 applic Promethazine HCl/Dextromethorphan (Phenergan Dm Syrup) 10 ml PO Q6 PRN PRN Reason: Cough Last Admin: 03/25/18 10:31 Dose: 10 ml Fluticasone/Salmeterol (Advair Diskus 250/50) 1 puff INH Q12 [facility] Last Admin: 03/25/18 09:08 Dose: 1 inhaler - Labs Labs: 03/23/18 06:05 03/23/18 06:05 - Constitutional Appears: Chronically Ill - Head Exam Head Exam: ATRAUMATIC, NORMAL INSPECTION, NORMOCEPHALIC - Eye Exam Eye Exam: EOMI, Normal appearance, PERRL Pupil Exam: NORMAL ACCOMODATION, PERRL - ENT Exam ENT Exam: Mucous Membranes Moist, Normal Exam - Neck Exam Neck Exam: Full ROM, Normal Inspection. absent: Lymphadenopathy - Respiratory Exam Respiratory Exam: Decreased Breath Sounds, Clear to Ausculation Bilateral, Wheezes, Respiratory Distress, NORMAL BREATHING PATTERN - Cardiovascular Exam Cardiovascular Exam: REGULAR RHYTHM, +S1, +S2. absent: Murmur - GI/Abdominal Exam GI & Abdominal Exam: Soft, Normal Bowel Sounds. absent: Tenderness - Rectal Exam Rectal Exam: NORMAL INSPECTION - Extremities Exam Extremities Exam: Full ROM, Normal Capillary Refill, Normal Inspection, Pedal Edema. absent: Joint Swelling - Back Exam Back Exam: NORMAL INSPECTION - Neurological Exam Neurological Exam: Alert, Awake, CN II-XII Intact, Normal Gait, Oriented x3 - Psychiatric Exam Psychiatric exam: Normal Affect, Normal Mood - Skin Skin Exam: Dry, Intact, Normal Color, Warm Assessment and Plan - Assessment and Plan (Free Text) Assessment: ACUTE EXAC OF COPD AND CHF CHRONIC KIDNEY DZ--STAGE 2 ASHD Plan: IV LASIX ADD ADVAIR TO RX
[2018-03-26] MEDS: Insulin Regular 100 units/ml SC SCH ×4 (06:56→21:17)
[2018-03-26] MEDS: Fluticasone-Salmeterol 250-50mcg Diskus INH SCH ×2 (08:51→21:16)
[2018-03-26] MEDS: Multivitamin With Minerals Tab PO SCH (08:52)
[2018-03-26] MEDS: Promethazine DM 12.5 mg-30 mg/10 ml Syrup PO PRN ×3 (08:53→23:30)
[2018-03-26] MEDS: HCTZ/Losartan 12.5/50 Tab PO SCH (08:53)
--- NOTE | 2018-03-26 09:29 | CP.PCM.PN ---
Subjective - Date & Time of Evaluation Date of Evaluation: 03/26/18 Time of Evaluation: 09:30 - Subjective Subjective: DENIES CHEST PAINS/SOB COUGH IMPROVED MILD WHEEZING NOTED Objective - Vital Signs/Intake and Output Vital Signs (last 24 hours): Temp Pulse Resp BP Pulse Ox 97.5 F L 65 20 129/67 92 L 03/26/18 09:18 03/26/18 09:18 03/26/18 09:18 03/26/18 09:18 03/26/18 09:18 - Medications Medications: Current Medications Acetaminophen (Tylenol 325mg Tab) 650 mg PO Q4 PRN PRN Reason: Pain, moderate (4-7) Last Admin: 03/25/18 22:11 Dose: 650 mg Albuterol/Ipratropium (Duoneb 3 Mg/0.5 Mg (3 Ml) Ud) 3 ml INH RQ6 PRN PRN Reason: Shortness of Breath Last Admin: 03/25/18 05:44 Dose: 3 ml Apixaban (Eliquis) 2.5 mg PO Q12 [facility]; Protocol Last Admin: 03/26/18 08:53 Dose: 2.5 mg Aspirin (Aspirin Chewable) 81 mg PO DAILY [facility] Last Admin: 03/26/18 08:52 Dose: 81 mg Atorvastatin Calcium (Lipitor) 40 mg PO DAILY@2100 [facility] Last Admin: 03/25/18 22:11 Dose: 40 mg Carvedilol (Coreg) 6.25 mg PO BID [facility] Last Admin: 03/26/18 08:52 Dose: 6.25 mg Folic Acid (Folic Acid) 1 mg PO DAILY [facility] Last Admin: 03/26/18 08:53 Dose: 1 mg Furosemide (Lasix) 40 mg PO DAILY [facility] Last Admin: 03/26/18 08:52 Dose: 40 mg Glipizide (Glucotrol) 5 mg PO DAILY [facility] Last Admin: 03/26/18 08:53 Dose: 5 mg HCTZ/Losartan Potassium (Hyzaar 12.5 Mg-50 Mg) 1 tab PO DAILY [facility] Last Admin: 03/26/18 08:53 Dose: 1 tab Insulin Human Regular (Humulin R) 0 units SC ACHS [facility]; Protocol Last Admin: 03/26/18 06:56 Dose: Not Given Isosorbide Mononitrate (Imdur Er) 30 mg PO DAILY [facility] Last Admin: 03/26/18 08:53 Dose: 30 mg Multivitamins/Minerals (Therapeutic-M Tab) 1 tab PO DAILY [facility] Last Admin: 03/26/18 08:52 Dose: 1 tab Nystatin (Nystop Topical Powder) 1 applic TOP TID [facility] Last Admin: 03/26/18 08:51 Dose: 1 applic Promethazine HCl/Dextromethorphan (Phenergan Dm Syrup) 10 ml PO Q6 PRN PRN Reason: Cough Last Admin: 03/26/18 08:53 Dose: 10 ml Fluticasone/Salmeterol (Advair Diskus 250/50) 1 puff INH Q12 [facility] Last Admin: 03/26/18 08:51 Dose: 1 inhaler - Labs Labs: 03/23/18 06:05 03/23/18 06:05 - Constitutional Appears: No Acute Distress - Head Exam Head Exam: ATRAUMATIC, NORMAL INSPECTION, NORMOCEPHALIC - Eye Exam Eye Exam: EOMI, Normal appearance, PERRL Pupil Exam: NORMAL ACCOMODATION, PERRL - ENT Exam ENT Exam: Mucous Membranes Moist, Normal Exam - Neck Exam Neck Exam: Full ROM, Normal Inspection. absent: Lymphadenopathy - Respiratory Exam Respiratory Exam: Wheezes, NORMAL BREATHING PATTERN - Cardiovascular Exam Cardiovascular Exam: REGULAR RHYTHM, +S1, +S2. absent: Murmur - GI/Abdominal Exam GI & Abdominal Exam: Soft, Normal Bowel Sounds. absent: Tenderness - Rectal Exam Rectal Exam: NORMAL INSPECTION - Extremities Exam Extremities Exam: Full ROM, Normal Capillary Refill, Normal Inspection, Pedal Edema. 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
[2018-03-26] MEDS: Albuterol-Ipratrop 3 mg / 0.5 (3 ml) UD INH PRN ×2 (09:39→23:58)
[2018-03-27] MEDS: Insulin Regular 100 units/ml SC SCH ×4 (07:02→21:22)
--- NOTE | 2018-03-27 08:11 | CP.PCM.PN ---
Subjective - Date & Time of Evaluation Date of Evaluation: 03/27/18 Time of Evaluation: 08:10 - Subjective Subjective: DENIES CHEST PAINS/SOB COUGH LESS Objective - Vital Signs/Intake and Output Vital Signs (last 24 hours): Temp Pulse Resp BP Pulse Ox 97.8 F 68 20 121/64 94 L 03/26/18 19:27 03/26/18 19:27 03/26/18 19:27 03/26/18 19:27 03/26/18 19:27 - Medications Medications: Current Medications Acetaminophen (Tylenol 325mg Tab) 650 mg PO Q4 PRN PRN Reason: Pain, moderate (4-7) Last Admin: 03/26/18 20:33 Dose: 650 mg Albuterol/Ipratropium (Duoneb 3 Mg/0.5 Mg (3 Ml) Ud) 3 ml INH RQ6 PRN PRN Reason: Shortness of Breath Last Admin: 03/26/18 23:58 Dose: 3 ml Apixaban (Eliquis) 2.5 mg PO Q12 [facility]; Protocol Last Admin: 03/26/18 21:16 Dose: 2.5 mg Aspirin (Aspirin Chewable) 81 mg PO DAILY [facility] Last Admin: 03/26/18 08:52 Dose: 81 mg Atorvastatin Calcium (Lipitor) 40 mg PO DAILY@2100 [facility] Last Admin: 03/26/18 21:17 Dose: 40 mg Carvedilol (Coreg) 6.25 mg PO BID [facility] Last Admin: 03/26/18 16:44 Dose: 6.25 mg Folic Acid (Folic Acid) 1 mg PO DAILY [facility] Last Admin: 03/26/18 08:53 Dose: 1 mg Furosemide (Lasix) 40 mg PO DAILY [facility] Last Admin: 03/26/18 08:52 Dose: 40 mg Glipizide (Glucotrol) 5 mg PO DAILY [facility] Last Admin: 03/26/18 08:53 Dose: 5 mg HCTZ/Losartan Potassium (Hyzaar 12.5 Mg-50 Mg) 1 tab PO DAILY [facility] Last Admin: 03/26/18 08:53 Dose: 1 tab Insulin Human Regular (Humulin R) 0 units SC ACHS [facility]; Protocol Last Admin: 03/27/18 07:02 Dose: Not Given Isosorbide Mononitrate (Imdur Er) 30 mg PO DAILY [facility] Last Admin: 03/26/18 08:53 Dose: 30 mg Multivitamins/Minerals (Therapeutic-M Tab) 1 tab PO DAILY [facility] Last Admin: 03/26/18 08:52 Dose: 1 tab Nystatin (Nystop Topical Powder) 1 applic TOP TID [facility] Last Admin: 03/26/18 16:45 Dose: 1 applic Promethazine HCl/Dextromethorphan (Phenergan Dm Syrup) 10 ml PO Q6 PRN PRN Reason: Cough Last Admin: 03/26/18 23:30 Dose: 10 ml Fluticasone/Salmeterol (Advair Diskus 250/50) 1 puff INH Q12 [facility] Last Admin: 03/26/18 21:16 Dose: 1 inhaler - Labs Labs: 03/23/18 06:05 03/23/18 06:05 - Constitutional Appears: No Acute Distress - Head Exam Head Exam: ATRAUMATIC, NORMAL INSPECTION, NORMOCEPHALIC - Eye Exam Eye Exam: EOMI, Normal appearance, PERRL Pupil Exam: NORMAL ACCOMODATION, PERRL - ENT Exam ENT Exam: Mucous Membranes Moist, Normal Exam - Neck Exam Neck Exam: Full ROM, Normal Inspection. absent: Lymphadenopathy - Respiratory Exam Respiratory Exam: Decreased Breath Sounds, Prolonged Expiratory Phase, Rales, Wheezes, NORMAL BREATHING PATTERN - Cardiovascular Exam Cardiovascular Exam: REGULAR RHYTHM, +S1, +S2. absent: Murmur - GI/Abdominal Exam GI & Abdominal Exam: Soft, Normal Bowel Sounds. absent: Tenderness - Rectal Exam Rectal Exam: NORMAL INSPECTION - Extremities Exam Extremities Exam: Full ROM, Normal Capillary Refill, Normal Inspection, Pedal Edema. absent: Joint Swelling - Back Exam Back Exam: NORMAL INSPECTION - Neurological Exam Neurological Exam: Alert, Awake, CN II-XII Intact, Normal Gait, Oriented x3 - Psychiatric Exam Psychiatric exam: Normal Affect, Normal Mood - Skin Skin Exam: Dry, Intact, Normal Color, Warm Assessment and Plan - Assessment and Plan (Free Text) Assessment: PNEUMONIA RESOLVED CHF--CLINICALLY IMPROVED Plan: CONTINUE CURRENT RX
[2018-03-27] MEDS: Multivitamin With Minerals Tab PO SCH (08:52)
[2018-03-27] MEDS: Fluticasone-Salmeterol 250-50mcg Diskus INH SCH ×2 (08:52→21:18)
[2018-03-27] MEDS: HCTZ/Losartan 12.5/50 Tab PO SCH (08:55)
[2018-03-27] MEDS: Promethazine DM 12.5 mg-30 mg/10 ml Syrup PO PRN (21:19)
[2018-03-28] MEDS: Insulin Regular 100 units/ml SC SCH ×4 (06:29→21:23)
[2018-03-28 06:43] LABS: CALCIUM 8.3 mg/dL (8.4-10.2)
[2018-03-28 06:47] LABS: BASO # 0.1 K/uL (0.0-0.2); BASO % 1.5 % (0.0-2.0); EOS # 0.3 K/uL (0.0-0.7); EOS % 6.4 % (0.0-4.0); HEMOGLOBIN 9.3 g/dL (12.0-18.0); LYMPH # 1.1 K/uL (1.0-4.3); LYMPH % 22.4 % (20.0-40.0); MEAN CELL VOLUME 90.7 fl (80.0-94.0); MEAN CORPUSCULAR HEMOGLOBIN 30.3 pg (27.0-31.0); MEAN CORPUSCULAR HGB CONC 33.4 g/dL (33.0-37.0); MEAN PLATELET VOLUME 9.2 fl (7.2-11.7); MONO # 1.1 K/uL (0.0-0.8); NEUT # 2.2 K/uL (1.8-7.0); NEUT % 46.7 % (50.0-75.0); NRBC % 0.4 % (0.0-0.0); PLATELET COUNT 172 K/uL (130-400); RBC 3.06 Mil/uL (4.40-5.90); RED CELL DISTRIBUTION WIDTH 14.2 % (11.5-14.5); WHITE BLOOD COUNT 4.7 K/uL (4.8-10.8)
[2018-03-28] MEDS: Multivitamin With Minerals Tab PO SCH (08:19)
[2018-03-28] MEDS: Fluticasone-Salmeterol 250-50mcg Diskus INH SCH ×2 (08:19→21:10)
[2018-03-28] MEDS: HCTZ/Losartan 12.5/50 Tab PO SCH (08:20)
[2018-03-28 11:08] LABS: BASOPHIL 1 % (0-2); EOSINOPHIL 2 % (0-7); LYMPHOCYTE 18 % (20-50); MONOCYTE 19 % (0-10); NEUTROPHIL 59 % (42-75); REACTIVE LYMPHOCYTES 1 % (0-0); TOTAL CELLS COUNTED 100
[2018-03-28 11:09] LABS: HYPOCHROMIC SLIGHT; PLATELET ESTIMATE NORMAL (NORMAL); TEARDROP CELLS SLIGHT
[2018-03-29] MEDS: Insulin Regular 100 units/ml SC SCH ×4 (07:18→21:50)
[2018-03-29] MEDS: Promethazine DM 12.5 mg-30 mg/10 ml Syrup PO PRN ×2 (08:29→16:28)
[2018-03-29] MEDS: HCTZ/Losartan 12.5/50 Tab PO SCH (08:30)
[2018-03-29] MEDS: Multivitamin With Minerals Tab PO SCH (08:30)
[2018-03-29] MEDS: Fluticasone-Salmeterol 250-50mcg Diskus INH SCH ×2 (09:57→21:10)
--- NOTE | 2018-03-29 10:19 | CP.PCM.PN ---
Subjective - Date & Time of Evaluation Date of Evaluation: 03/29/18 Time of Evaluation: 10:19 - Subjective Subjective: NO APPARENT DISTRESS FEELS BETTER STILL HAS DYSPNEA ON ASCENDING STAIRS Objective - Vital Signs/Intake and Output Vital Signs (last 24 hours): Temp Pulse Resp BP Pulse Ox 97.8 F 89 19 151/74 H 95 03/29/18 08:00 03/29/18 09:06 03/29/18 08:00 03/29/18 09:06 03/29/18 09:06 - Medications Medications: Current Medications Acetaminophen (Tylenol 325mg Tab) 650 mg PO Q4 PRN PRN Reason: Pain, moderate (4-7) Last Admin: 03/26/18 20:33 Dose: 650 mg Albuterol/Ipratropium (Duoneb 3 Mg/0.5 Mg (3 Ml) Ud) 3 ml INH RQ6 PRN PRN Reason: Shortness of Breath Last Admin: 03/26/18 23:58 Dose: 3 ml Aspirin (Aspirin Chewable) 81 mg PO DAILY [facility] Last Admin: 03/29/18 08:30 Dose: 81 mg Atorvastatin Calcium (Lipitor) 40 mg PO DAILY@2100 [facility] Last Admin: 03/28/18 21:10 Dose: 40 mg Carvedilol (Coreg) 6.25 mg PO BID [facility] Last Admin: 03/29/18 08:29 Dose: 6.25 mg Folic Acid (Folic Acid) 1 mg PO DAILY [facility] Last Admin: 03/29/18 08:29 Dose: 1 mg Furosemide (Lasix) 40 mg PO DAILY [facility] Last Admin: 03/29/18 08:30 Dose: 40 mg Glipizide (Glucotrol) 5 mg PO DAILY [facility] Last Admin: 03/29/18 08:30 Dose: 5 mg HCTZ/Losartan Potassium (Hyzaar 12.5 Mg-50 Mg) 1 tab PO DAILY [facility] Last Admin: 03/29/18 08:30 Dose: 1 tab Insulin Human Regular (Humulin R) 0 units SC [facility]; Protocol Last Admin: 03/29/18 07:18 Dose: Not Given Isosorbide Mononitrate (Imdur Er) 30 mg PO DAILY [facility] Last Admin: 03/29/18 08:30 Dose: 30 mg Multivitamins/Minerals (Therapeutic-M Tab) 1 tab PO DAILY [facility] Last Admin: 03/28/18 08:19 Dose: 1 tab Nystatin (Nystop Topical Powder) 1 applic TOP TID [facility] Last Admin: 03/29/18 08:29 Dose: 1 applic Promethazine HCl/Dextromethorphan (Phenergan Dm Syrup) 10 ml PO Q6 PRN PRN Reason: Cough Last Admin: 03/29/18 08:29 Dose: 10 ml Fluticasone/Salmeterol (Advair Diskus 250/50) 1 puff INH Q12 [facility] Last Admin: 03/29/18 09:57 Dose: 1 inhaler - Labs Labs: 03/28/18 05:30 03/28/18 05:30 - Constitutional Appears: No Acute Distress - Head Exam Head Exam: ATRAUMATIC, NORMAL INSPECTION, NORMOCEPHALIC - Eye Exam Eye Exam: EOMI, Normal appearance, PERRL Pupil Exam: NORMAL ACCOMODATION, PERRL - ENT Exam ENT Exam: Mucous Membranes Moist, Normal Exam - Neck Exam Neck Exam: Full ROM, Normal Inspection. absent: Lymphadenopathy - Respiratory Exam Respiratory Exam: Clear to Ausculation Bilateral, NORMAL BREATHING PATTERN - Cardiovascular Exam Cardiovascular Exam: REGULAR RHYTHM, +S1, +S2. absent: Murmur - GI/Abdominal Exam GI & Abdominal Exam: Soft, Normal Bowel Sounds. absent: Tenderness - Rectal Exam Rectal Exam: NORMAL INSPECTION - Extremities Exam Extremities Exam: Full ROM, Normal Capillary Refill, Normal Inspection, Pedal Edema. absent: Joint Swelling Additional comments: PEDAL EDEMA LESS - Back Exam Back Exam: NORMAL INSPECTION - Neurological Exam Neurological Exam: Alert, Awake, CN II-XII Intact, Normal Gait, Oriented x3 - Psychiatric Exam Psychiatric exam: Normal Affect, Normal Mood - Skin Skin Exam: Dry, Intact, Normal Color, Warm Assessment and Plan - Assessment and Plan (Free Text) Assessment: CHF--IMPROVEC COPD ASHD ARRYTHMIAS Plan: CONTINUE CURRENT RX FAMILY MEETING WITH ST[employer] CUTTER TO DETERMINE DISPOSITION
--- NOTE | 2018-03-29 14:03 | CP.PCM.PN ---
Subjective - Date & Time of Evaluation Date of Evaluation: 03/29/18 Time of Evaluation: 07:00 - Subjective Subjective: no fever off antibiotics alert in NAD in Gym legs with less swelling and redness will discuss with Dr Blanca Objective - Vital Signs/Intake and Output Vital Signs (last 24 hours): Temp Pulse Resp BP Pulse Ox 97.8 F 89 19 151/74 H 95 03/29/18 08:00 03/29/18 09:06 03/29/18 08:00 03/29/18 09:06 03/29/18 09:06 - Medications Medications: Current Medications Acetaminophen (Tylenol 325mg Tab) 650 mg PO Q4 PRN PRN Reason: Pain, moderate (4-7) Last Admin: 03/26/18 20:33 Dose: 650 mg Albuterol/Ipratropium (Duoneb 3 Mg/0.5 Mg (3 Ml) Ud) 3 ml INH RQ6 PRN PRN Reason: Shortness of Breath Last Admin: 03/26/18 23:58 Dose: 3 ml Aspirin (Aspirin Chewable) 81 mg PO DAILY [facility] Last Admin: 03/29/18 08:30 Dose: 81 mg Atorvastatin Calcium (Lipitor) 40 mg PO DAILY@2100 [facility] Last Admin: 03/28/18 21:10 Dose: 40 mg Carvedilol (Coreg) 6.25 mg PO BID [facility] Last Admin: 03/29/18 08:29 Dose: 6.25 mg Folic Acid (Folic Acid) 1 mg PO DAILY [facility] Last Admin: 03/29/18 08:29 Dose: 1 mg Furosemide (Lasix) 40 mg PO DAILY [facility] Last Admin: 03/29/18 08:30 Dose: 40 mg Glipizide (Glucotrol) 5 mg PO DAILY [facility] Last Admin: 03/29/18 08:30 Dose: 5 mg HCTZ/Losartan Potassium (Hyzaar 12.5 Mg-50 Mg) 1 tab PO DAILY [facility] Last Admin: 03/29/18 08:30 Dose: 1 tab Insulin Human Regular (Humulin R) 0 units SC [facility]; Protocol Last Admin: 03/29/18 12:16 Dose: Not Given Isosorbide Mononitrate (Imdur Er) 30 mg PO DAILY [facility] Last Admin: 03/29/18 08:30 Dose: 30 mg Multivitamins/Minerals (Therapeutic-M Tab) 1 tab PO DAILY [facility] Last Admin: 03/29/18 08:30 Dose: 1 tab Nystatin (Nystop Topical Powder) 1 applic TOP TID [facility] Last Admin: 03/29/18 12:18 Dose: 1 applic Promethazine HCl/Dextromethorphan (Phenergan Dm Syrup) 10 ml PO Q6 PRN PRN Reason: Cough Last Admin: 03/29/18 08:29 Dose: 10 ml Fluticasone/Salmeterol (Advair Diskus 250/50) 1 puff INH Q12 [facility] Last Admin: 03/29/18 09:57 Dose: 1 inhaler - Labs Labs: 03/28/18 05:30 03/28/18 05:30 - Constitutional Appears: Non-toxic, Chronically Ill - Head Exam Head Exam: NORMOCEPHALIC - Eye Exam Eye Exam: absent: Scleral icterus - ENT Exam ENT Exam: Mucous Membranes Dry - Neck Exam Neck Exam: absent: Lymphadenopathy - Respiratory Exam Respiratory Exam: Decreased Breath Sounds - Cardiovascular Exam Cardiovascular Exam: REGULAR RHYTHM - GI/Abdominal Exam GI & Abdominal Exam: Distended, Soft - Rectal Exam Rectal Exam: Deferred - Exam Exam: NORMAL INSPECTION - Extremities Exam Extremities Exam: absent: Pedal Edema - Back Exam Back Exam: absent: CVA tenderness (L), CVA tenderness (R) - Neurological Exam Neurological Exam: Alert, Awake, CN II-XII Intact Assessment and Plan - Assessment and Plan (Free Text) Assessment: COPD improved/ cellulitis resolved no fever off antibiotics alert in NAD in Gym legs with less swelling and redness will discuss with Dr Blanca
[2018-03-29 16:24] VITALS: RESP 20
[2018-03-30] MEDS: Insulin Regular 100 units/ml SC SCH ×4 (08:00→21:48)
[2018-03-30] MEDS: Fluticasone-Salmeterol 250-50mcg Diskus INH SCH ×2 (08:34→21:48)
[2018-03-30] MEDS: Multivitamin With Minerals Tab PO SCH (08:34)
[2018-03-30] MEDS: Promethazine DM 12.5 mg-30 mg/10 ml Syrup PO PRN (08:35)
[2018-03-30] MEDS: HCTZ/Losartan 12.5/50 Tab PO SCH (08:35)
--- NOTE | 2018-03-30 15:56 | CP.PCM.PN ---
Subjective - Date & Time of Evaluation Date of Evaluation: 03/30/18 Time of Evaluation: 15:57 - Subjective Subjective: FEELS BETTER NO CHEST PAINS/SOB SCHEDULED FOR D/C IN AM Objective - Vital Signs/Intake and Output Vital Signs (last 24 hours): Temp Pulse Resp BP Pulse Ox 97.6 F 78 20 135/73 95 03/30/18 15:48 03/30/18 15:48 03/30/18 15:48 03/30/18 15:48 03/30/18 15:48 - Medications Medications: Current Medications Acetaminophen (Tylenol 325mg Tab) 650 mg PO Q4 PRN PRN Reason: Pain, moderate (4-7) Last Admin: 03/26/18 20:33 Dose: 650 mg Albuterol/Ipratropium (Duoneb 3 Mg/0.5 Mg (3 Ml) Ud) 3 ml INH RQ6 PRN PRN Reason: Shortness of Breath Last Admin: 03/26/18 23:58 Dose: 3 ml Aspirin (Aspirin Chewable) 81 mg PO DAILY [facility] Last Admin: 03/30/18 08:35 Dose: 81 mg Atorvastatin Calcium (Lipitor) 40 mg PO DAILY@2100 [facility] Last Admin: 03/29/18 21:10 Dose: 40 mg Carvedilol (Coreg) 6.25 mg PO BID [facility] Last Admin: 03/30/18 08:34 Dose: 6.25 mg Folic Acid (Folic Acid) 1 mg PO DAILY [facility] Last Admin: 03/30/18 08:36 Dose: 1 mg Furosemide (Lasix) 40 mg PO DAILY [facility] Last Admin: 03/30/18 08:35 Dose: 40 mg Glipizide (Glucotrol) 5 mg PO DAILY [facility] Last Admin: 03/30/18 08:34 Dose: 5 mg HCTZ/Losartan Potassium (Hyzaar 12.5 Mg-50 Mg) 1 tab PO DAILY [facility] Last Admin: 03/30/18 08:35 Dose: 1 tab Insulin Human Regular (Humulin R) 0 units SC [facility]; Protocol Last Admin: 03/30/18 12:19 Dose: 1 unit Isosorbide Mononitrate (Imdur Er) 30 mg PO DAILY [facility] Last Admin: 03/30/18 08:34 Dose: 30 mg Multivitamins/Minerals (Therapeutic-M Tab) 1 tab PO DAILY [facility] Last Admin: 03/30/18 08:34 Dose: 1 tab Nystatin (Nystop Topical Powder) 1 applic TOP TID [facility] Last Admin: 03/30/18 12:16 Dose: Not Given Promethazine HCl/Dextromethorphan (Phenergan Dm Syrup) 10 ml PO Q6 PRN PRN Reason: Cough Last Admin: 03/30/18 08:35 Dose: 10 ml Fluticasone/Salmeterol (Advair Diskus 250/50) 1 puff INH Q12 ON LICENSE OF [facility] Last Admin: 03/30/18 08:34 Dose: 1 inhaler - Labs Labs: 03/28/18 05:30 03/28/18 05:30 - Constitutional Appears: No Acute Distress - Head Exam Head Exam: ATRAUMATIC, NORMAL INSPECTION, NORMOCEPHALIC - Eye Exam Eye Exam: EOMI, Normal appearance, PERRL Pupil Exam: NORMAL ACCOMODATION, PERRL - ENT Exam ENT Exam: Mucous Membranes Moist, Normal Exam - Neck Exam Neck Exam: Full ROM, Normal Inspection. absent: Lymphadenopathy - Respiratory Exam Respiratory Exam: Clear to Ausculation Bilateral, Prolonged Expiratory Phase, NORMAL BREATHING PATTERN - Cardiovascular Exam Cardiovascular Exam: REGULAR RHYTHM, +S1, +S2. absent: Murmur - GI/Abdominal Exam GI & Abdominal Exam: Soft, Normal Bowel Sounds. absent: Tenderness - Rectal Exam Rectal Exam: NORMAL INSPECTION - Extremities Exam Extremities Exam: Full ROM, Normal Capillary Refill, Normal Inspection, Pedal Edema. absent: Joint Swelling - Back Exam Back Exam: NORMAL INSPECTION - Neurological Exam Neurological Exam: Alert, Awake, CN II-XII Intact, Normal Gait, Oriented x3 - Psychiatric Exam Psychiatric exam: Normal Affect, Normal Mood - Skin Skin Exam: Dry, Intact, Normal Color, Warm Assessment and Plan - Assessment and Plan (Free Text) Assessment: COPD-IMPROVED CHF-STABLE PNEUMONIA RESOLVED ARRYTHMIAS-STABLE Plan: D/C HOME IN AM
[2018-03-31] MEDS: Insulin Regular 100 units/ml SC SCH ×2 (07:08→12:25)
[2018-03-31] MEDS: Fluticasone-Salmeterol 250-50mcg Diskus INH SCH (08:26)
[2018-03-31] MEDS: HCTZ/Losartan 12.5/50 Tab PO SCH (08:29)
[2018-03-31] MEDS: Multivitamin With Minerals Tab PO SCH (08:29)
--- NOTE | 2018-03-31 09:01 | CP.PCM.DIS ---
Provider - Provider Date of Admission: 03/21/18 14:10 Attending physician: Binh Blanca MD Consults: 03/21/18 14:10 Case Management Referral Routine Comment: Physician Instructions: Reason For Exam: Reason for Referral: Discharge Planning 03/21/18 14:50 Infectious Disease Consult Routine Comment: Consulting Provider: Omid Ferrer Consulting Physician: Omid Ferrer Reason for Consult: follow in tcu Time Spent in preparation of Discharge (in minutes): 35 Diagnosis - Discharge Diagnosis (1) CHF exacerbation Status: Acute (2) CKD (chronic kidney disease) Status: Acute (3) COPD exacerbation Status: Acute Priority: High (4) DVT prophylaxis Status: Acute (5) Dyspnea Status: Acute (6) Hospital acquired PNA Status: Acute (7) Moderate COPD (chronic obstructive pulmonary disease) Status: Acute (8) Noncompliance w/medication treatment due to intermit use of medication Status: Acute (9) Pacemaker Status: Acute (10) Respiratory distress Status: Acute (11) S/P CABG x 3 Status: Acute (12) Weakness Status: Acute (13) Acute on 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 Status: Chronic (14) Atrial fibrillation Status: Chronic Priority: High (15) Atrial fibrillation with controlled ventricular response Status: Chronic (16) CAD (coronary artery disease) Status: Chronic (17) Chronic kidney disease, stage III (moderate) Status: Chronic (18) Diabetes Status: Chronic (19) HTN (hypertension) Status: Chronic Hospital Course - Lab Results Lab Results: Most Recent Lab Values WBC 4.7 K/uL (4.8-10.8) L 03/28/18 05:30 RBC 3.06 Mil/uL (4.40-5.90) L 03/28/18 05:30 Hgb 9.3 g/dL (12.0-18.0) L 03/28/18 05:30 Hct 27.7 % (35.0-51.0) L 03/28/18 05:30 MCV 90.7 fl (80.0-94.0) 03/28/18 05:30 MCH 30.3 pg (27.0-31.0) 03/28/18 05:30 MCHC 33.4 g/dL (33.0-37.0) 03/28/18 05:30 RDW 14.2 % (11.5-14.5) 03/28/18 05:30 Plt Count 172 K/uL (130-400) 03/28/18 05:30 MPV 9.2 fl (7.2-11.7) 03/28/18 05:30 Neut % (Auto) 46.7 % (50.0-75.0) L 03/28/18 05:30 Lymph % (Auto) 22.4 % (20.0-40.0) 03/28/18 05:30 [place] % (Auto) 23.0 % (0.0-10.0) H 03/28/18 05:30 Eos % (Auto) 6.4 % (0.0-4.0) H 03/28/18 05:30 Baso % (Auto) 1.5 % (0.0-2.0) 03/28/18 05:30 Neut # (Auto) 2.2 K/uL (1.8-7.0) 03/28/18 05:30 Lymph # (Auto) 1.1 K/uL (1.0-4.3) 03/28/18 05:30 [place] # (Auto) 1.1 K/uL (0.0-0.8) H 03/28/18 05:30 Eos # (Auto) 0.3 K/uL (0.0-0.7) 03/28/18 05:30 Baso # (Auto) 0.1 K/uL (0.0-0.2) 03/28/18 05:30 Neutrophils % (Manual) 59 % (42-75) 03/28/18 05:30 Lymphocytes % (Manual) 18 % (20-50) L 03/28/18 05:30 Reactive Lymphs % 1 % (0-0) H 03/28/18 05:30 Monocytes % (Manual) 19 % (0-10) H 03/28/18 05:30 Eosinophils % (Manual) 2 % (0-7) 03/28/18 05:30 Basophils % (Manual) 1 % (0-2) 03/28/18 05:30 Platelet Estimate Normal (NORMAL) 03/28/18 05:30 Hypochromasia (manual) Slight 03/28/18 05:30 Tear Drop Cells Slight 03/28/18 05:30 Sodium 133 mmol/l (132-148) 03/28/18 05:30 Potassium 4.2 MMOL/L (3.6-5.0) 03/28/18 05:30 Chloride 95 mmol/L (98-107) L 03/28/18 05:30 Carbon Dioxide 32 mmol/L (22-30) H 03/28/18 05:30 Anion Gap 10 (10-20) 03/28/18 05:30 BUN 27 mg/dl (9-20) H 03/28/18 05:30 Creatinine 1.6 mg/dl (0.8-1.5) H 03/28/18 05:30 Est GFR ( Amer) 51 03/28/18 05:30 Est GFR (Non-Af Amer) 42 03/28/18 05:30 POC Glucose (mg/dL) 146 mg/dL (65-110) H 03/31/18 05:40 Random Glucose 181 mg/dL (75-110) H 03/28/18 05:30 Calcium 8.3 mg/dL (8.4-10.2) L 03/28/18 05:30 Total Bilirubin 1.6 mg/dl (0.2-1.3) H 03/23/18 06:05 AST 31 U/L (17-59) 03/23/18 06:05 ALT 52 U/L (21-72) 03/23/18 06:05 Alkaline Phosphatase 87 U/L (38-126) 03/23/18 06:05 NT-Pro-B Natriuret Pep 1490 pg/ml (0-900) H 03/28/18 05:30 Total Protein 6.6 G/DL (6.3-8.2) 03/23/18 06:05 Albumin 3.4 g/dL (3.5-5.0) L 03/23/18 06:05 Globulin 3.2 gm/dL (2.2-3.9) 03/23/18 06:05 Albumin/Globulin Ratio 1.1 (1.0-2.1) 03/23/18 06:05 Vancomycin Trough 11.9 ug/mL (5.0-10.0) H 03/23/18 06:05 - Hospital Course Hospital Course: shortness of breath improved with diuretic and bronchodilator therapy no cough or chest pains serum glucose better controlled cxr-resolution of pneumonia and pulmonary congestion pedal edema decreased Discharge Exam - Head Exam Head Exam: ATRAUMATIC, NORMAL INSPECTION, NORMOCEPHALIC - Eye Exam Eye Exam: EOMI, Normal appearance, PERRL Pupil Exam: NORMAL ACCOMODATION, PERRL - GI/Abdominal Exam GI & Abdominal Exam: Normal Bowel Sounds - Rectal Exam Rectal Exam: NORMAL INSPECTION - Extremities Exam Extremities exam: pedal edema - Neurological Exam Neurological exam: Alert, CN II-XII Intact, Normal Gait, Oriented x3, Reflexes Normal - Psychiatric Exam Psychiatric exam: Normal Affect, Normal Mood - Skin Skin Exam: Dry, Intact, Normal Color, Warm Discharge Plan - Discharge Medications Prescriptions: Apixaban [Eliquis] 2.5 mg PO BID #60 tablet Furosemide [Lasix] 40 mg PO DAILY #30 tab - Follow Up Plan Condition: GOOD Disposition: HOME/ ROUTINE Additional Instructions: discharge home today with daughter follow up with nat alvares and juan
[2018-03-31 15:39] VITALS: BP 115/66; PULSE 66; TEMP 97.3; O2SAT 97
== END 2018-03-31 16:17 | disposition home health service (06) | DRG 291 ==
LOC: H.TCU 14:10
PROVIDERS: ADMIT Internal Medicine Pulmonary Disease; ATTEND Internal Medicine Pulmonary Disease
PROC: F08Z1FZ Dressing Techniques Treatment using Assistive, Adaptive, Supportive or Protective Equipment (ICD-10-PCS; principal; 2018-03-21)
PROC: F08Z0FZ Bathing/Showering Techniques Treatment using Assistive, Adaptive, Supportive or Protective Equipment (ICD-10-PCS; 2018-03-21)
PROC: F07Z9FZ Gait Training/Functional Ambulation Treatment using Assistive, Adaptive, Supportive or Protective Equipment (ICD-10-PCS; 2018-03-21)
PROC: F07L6GZ Therapeutic Exercise Treatment of Musculoskeletal System - Lower Back / Lower Extremity using Aerobic Endurance and Conditioning Equipment (ICD-10-PCS; 2018-03-21)
PROC: 5A0955Z Assistance with Respiratory Ventilation, Greater than 96 Consecutive Hours (ICD-10-PCS; 2018-03-21)
DX: I13.0 Hypertensive heart and chronic kidney disease with heart failure and stage 1 through stage 4 chronic kidney disease, or unspecified chronic kidney disease (principal); J18.9 Pneumonia, unspecified organism; I50.33 Acute on chronic diastolic (congestive) heart failure; J44.1 Chronic obstructive pulmonary disease with (acute) exacerbation; J44.0 Chronic obstructive pulmonary disease with (acute) lower respiratory infection; Y95 Nosocomial condition; I25.10 Atherosclerotic heart disease of native coronary artery without angina pectoris; Z95.1 Presence of aortocoronary bypass graft; Z95.0 Presence of cardiac pacemaker; E11.22 Type 2 diabetes mellitus with diabetic chronic kidney disease; K29.70 Gastritis, unspecified, without bleeding; Z91.14 Patient's other noncompliance with medication regimen; I48.2 Chronic atrial fibrillation; N18.3 Chronic kidney disease, stage 3 (moderate); F03.90 Unspecified dementia, unspecified severity, without behavioral disturbance, psychotic disturbance, mood disturbance, and anxiety; E78.00 Pure hypercholesterolemia, unspecified; Z86.73 Personal history of transient ischemic attack (TIA), and cerebral infarction without residual deficits; Z87.891 Personal history of nicotine dependence; F32.9 Major depressive disorder, single episode, unspecified